=== PATIENT | male | born 1950 | race Caucasian/White ===

== ENCOUNTER 2017-08-13 10:12 | Inpatient (IN) | payer MEDICARE, OTHER, SELFPAY ==
[2017-08-13] VITALS (15 sets, daily range): BP systolic 92–117; BP diastolic 50–66; PULSE 24–94; RESP 17–28; TEMP 36.1–36.6; O2SAT 88–97; BMI 36.5; BMI 35.0
--- NOTE | 2017-08-13 10:30 | EKG12_ITS ---
Test Reason : SOB Blood Pressure : / mmHG Vent. Rate : 065 BPM Atrial Rate : 227 BPM P-R Int : 000 ms QRS Dur : 100 ms QT Int : 418 ms P-R-T Axes : 000 013 248 degrees QTc Int : 434 ms Suspect unspecified pacemaker failure Atrial fibrillation with occasional ventricular-paced complexes Low voltage QRS ST & T wave abnormality, consider lateral ischemia Abnormal ECG Confirmed by NICHOLAS TORRES ([id number]), news assignment editor SHERON JOHNSON ([id number]) on 08/17/2017 9:46:00 AM Referred By: LI Confirmed By:NICHOLAS TORRES
--- NOTE | 2017-08-13 10:30 | RAD_ITS ---
STUDY: X-RAY CHEST REASON FOR EXAM: Male, 66 years old. Chest pain. TECHNIQUE: PA and lateral views of the chest. COMPARISON: Comparison is made with prior study dated March 17, 2017. FINDINGS: Increasing right pleural effusion with basilar atelectasis. Stable pleural parenchymal changes at the left lung base. There is moderate cardiac enlargement. A left-sided ICD is seen. Normal mediastinum and lee. Normal visualized pulmonary arteries. There is atherosclerotic calcification of the aortic arch with tortuosity. There are diffuse degenerative changes of the visualized thoracic spine. Normal visualized ribs, clavicles, and shoulders. There is no demonstrated abnormality of the visualized soft tissue structures of the upper abdomen. RAD/Chest PA and Lateral IMPRESSION: Increasing small right pleural effusion with underlying infiltration and/or atelectasis. Stable pleural parenchymal changes at the left lung base. Electronically Signed: Tra Myrick MD at 11:25 EST Tel [phone], Service support ,
[2017-08-13 10:57] LABS: Absolute Lymphocyte Count 0.56 X10^3/ul (0.83-4.51); Absolute Neutrophil Count 4.2 X10^3/uL (2.0-7.7); Basophil# 0.01 X10^3/uL; Basophil% 0.2 % (0-1); Differential Indicated SCAN CRITERIA MET; Eosinophil# 0.04 X10^3/uL; Eosinophils% 0.8 % (0-5); Hematocrit 32.1 % (40-54); Hemoglobin 8.7 g/dl (13.0-16.5); Lymphocyte # 0.56 X10^3/ul (4.0); Lymphocyte % 10.7 % (19-41); Mean Corp Hgb Conc 27.1 g/gl (32-36); Mean Corpuscular Volume 81.1 fL (80-94); Mean Platelet Vol. 9.8 fl (6.2-12.0); Monocyte# 0.46 X10^3/uL; Monocyte% 8.8 % (0-10); Neutrophil # 4.17 X10^3/uL (2.7-7.7); Neutrophil % 79.5 % (47-70); POSITIVE COUNT NO; POSITIVE DIFFERENTIAL YES; POSITIVE MORPHOLOGY NO; Platelet Count 159 K/mm3 (150-450); RBC Distribution Width CV 18.8 % (11.6-14.6); RBC Distribution Width SD 55.7 fl (35.1-43.9); Red Blood Count 3.96 M/mm3 (4.6-6.2); White Blood Count 5.2 K/mm3 (4.4-11.0)
[2017-08-13 11:12] LABS: Anion Gap 4 (5-15); BUN 39 mg/dL (7-18); BUN/Creat Ratio 19.8 RATIO (10-20); Calcium,Total 8.7 mg/dL (8.5-10.1); Chloride 100 mmol/L (98-107); Creatinine, Serum 1.97 mg/dL (0.70-1.30); EST Glomerular Filtration Rate 36 mL/min (>60); Est Glom Filt Rate - Afr Amer 44 mL/min (>60); Estimated Creatinine Clearance 33.55 ml/min; Glucose 107 mg/dL (70-110); Potassium 5.3 mmol/L (3.5-5.1); Sodium Level 140 mmol/L (136-145)
[2017-08-13 11:16] LABS: Hypochromasia 1+
[2017-08-13 11:20] LABS: BNP,B-Type NATRIURETIC PEPTIDE 721.8 pg/mL (0-100)
--- NOTE | 2017-08-13 13:02 | ED.RN ---
DR DEAN OFFICE CONTACTED FOR MEDICATION LIST
[2017-08-13] MEDS: Furosemide 40 MG/4 ML Vial IV (13:25)
[2017-08-13 14:36] LABS: International Normalized Ratio 3.1; Prothrombin Time (Protime)PT. 31.1 SECONDS (11.7-14.9)
--- NOTE | 2017-08-13 14:52 | ED.DCSUM_ITS ---
- ER Visit Summary Date of Service: 08/13/17 Chief Complaint: Shortness of breath History of Present Illness: The patient is a 66 M presenting for evaluation secondary to shortness of breath. Patient has an underlying history of CHF with an ejection fraction of 20% a pacemaker. Patient states over the course last week he has been retaining fluid in his legs abdomen and feels that he is now retaining fluid in his lungs. Denies any chest pain or cough or fever associated with this. Patient states that he also has an underlying history of chronic kidney disease and it is difficult to titrate his Lasix but he currently is on 40 mg twice daily. Review of systems otherwise negative. Physical Examination: Initial blood pressure 93/50, patient is chronically on 4 L nasal cannula and is 92%. Well-nourished male no acute distress. Moist mucous membranes. Neck supple. Heart regular rate and rhythm 3 out of 6 systolic murmur noted at the apex. Rales noted bilaterally with bilateral wheezes but no respiratory distress. Abdomen is somewhat distended but nontender. 2+ peripheral edema bilaterally symmetric with bilateral 1+ radial pulses. Remainder physical otherwise unremarkable. Test Results: Chest x-ray demonstrates CHF with a right-sided pleural effusion. EKG shows A. fib with a rate in the 70s and chronic T-wave inversions laterally that are unchanged from prior. CBC shows chronic anemia 8.7, chemistry shows potassium of 5.3, BUN of 39 trending upwards from a earlier B UN of 37, creatinine of 1.9 mildly trended upward from 1.84. INR 3.1, troponin negative, BNP elevated. Emergency Department Course and Treatment: Patient presented due to concern for worsening CHF. Patient's workup is noted as above and shows new onset of a pleural effusion on the right but no evidence of cardiac strain. Initially the patient was normally oxygenating in the emergency department on his normal nasal cannula oxygen dosage. I had a discussion with Dr. Mcgregor about this who recommended doubling the patient's Lasix dose and potentially scheduling him for an outpatient pleurocentesis. I discussed this with Dr. Saenz who initially planned to do the pleurocentesis, but to the patient's INR was too high for this procedure. Prior to discharge however, the patient became hypoxic with pulse ox is dropping into the 84% range on his baseline O2. This point I believe he requires admission. I discussed this with the hospitalist patient was given Lasix and increased supplemental oxygen and the patient will be admitted. Disposition: Admission Impression: 1. CHF exacerbation 2. Right-sided pleural effusion 3. Chronic kidney disease 4. Hypoxia This note was generated with too.me dictation software. It may contain incorrect words, spelling, and punctuation that were not noted in review of the chart prior to signing ED Disposition - Plan for ED Patient: Disposition: Home or Assisted Living Chief Complaint: Shortness of Breath Diagnosis: CHF (congestive heart failure)
--- NOTE | 2017-08-13 15:43 | NURSING ---
PT WALKED WITH PORTABLE PULSE OX ON HOME O2. PT SAT WAS 83% ON 5 LITER ON HOME DEVICE. DR INFORMED AND PLAN OF CARE CHANGED.
--- NOTE | 2017-08-13 15:50 | NURSING ---
DR JUAN JEFFERSON
--- NOTE | 2017-08-13 15:54 | NURSING ---
PCU CHF EXAC WITH PLEURAL EFFUSION JUAN
--- NOTE | 2017-08-13 16:39 | HP.PCM_ITS ---
Problem List (1) Acute on chronic combined severe HF Status: Acute (2) Anasarca Status: Acute (3) Warfarin-induced coagulopathy Status: Acute (4) Acute kidney injury on CKD stage III Status: Acute (5) MCC (current) use of anticoagulants Status: Acute (6) History of stent insertion of renal artery Status: Chronic (7) Anemia Status: Chronic (8) Bilateral atelectasis Status: Chronic (9) Acute on chronic respiratory failure with hypoxia and hypercapnia Status: Acute (10) Respiratory failure with hypoxia and hypercapnia Status: Chronic (11) Acute systolic congestive heart failure Status: Acute (12) Coronary artery disease Status: Chronic (13) Peripheral arterial occlusive disease Status: Chronic (14) Pleural effusion Status: Chronic (15) Acute cor pulmonale Status: Chronic (16) Ischemic cardiomyopathy Status: Chronic Comment: EF 20% on 10/27/16 (17) Chronic anticoagulation Status: Chronic Comment: On warfarin (18) Pulmonary hypertension Status: Chronic (19) Atrial fibrillation Status: Chronic (20) Hyperlipemia Status: Chronic (21) COPD (chronic obstructive pulmonary disease) Status: Chronic Comment: mild. no chronic medications (22) Hypertension Status: Chronic (23) Urine retention Status: Chronic (24) BPH (benign prostatic hypertrophy) Status: Suspected (25) Hypothyroidism Status: Chronic (26) Former smoker, stopped smoking in distant past Status: Chronic Comment: Quit in 1999 (27) AICD (automatic cardioverter/defibrillator) present Status: Chronic (28) Pacemaker Status: Chronic (29) Diverticulosis Status: Chronic (30) Left renal artery stenosis Status: Chronic Comment: Stent done in February (31) History of PTCA Status: Chronic History of Present Illness Date of Admission: 08/13/17 Chief Complaint: Progressive worsening of shortness of breath The patient is a 66 year old M with multiple comorbidities including coronary artery disease status post 3 stent, last stent was about 3 years ago, 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 Patient has generalized anasarca, bilateral lower extremity edema, ascites, pleural effusion, ongoing since February 2017. He was admitted last time in February 2017 with acute on chronic combined respiratory failure due to right more than left pleural effusion and atelectasis for which he had right thoracocentesis and about 800 mL fluid was removed by Dr. Myrick. Patient denies any chest pain/tightness and denies even chest pain on exertion. ER physician talked to Dr. person for thoracocentesis and he postponed it for Wednesday because of high INR. Also discussed with Dr. Mcgregor advised for admission for heart failure. 2D echo in October 2016 shows EF 20% with akinetic apex and severely hypokinetic anterior apex and rest of the wall hypokinetic, LA severely enlarged, RA mildly enlarged, 1-2+ MR, mild papillary muscle dysfunction of mitral valve. Mild TR, RVSP of 55 mmHg. Aortic sclerosis no stenosis. Trivial pericardial effusion. Status post AICD Past Medical History Past Medical History (Chronic Problems): Chronic Problems History of stent insertion of renal artery (Chronic) Anemia (Chronic) Bilateral atelectasis (Chronic) Respiratory failure with hypoxia and hypercapnia (Chronic) Coronary artery disease (Chronic) Peripheral arterial occlusive disease (Chronic) Pleural effusion (Chronic) Acute cor pulmonale (Chronic) Ischemic cardiomyopathy (Chronic) EF 20% on 10/27/16 Chronic anticoagulation (Chronic) On warfarin Pulmonary hypertension (Chronic) Atrial fibrillation (Chronic) Hyperlipemia (Chronic) COPD (chronic obstructive pulmonary disease) (Chronic) mild. no chronic medications Hypertension (Chronic) Urine retention (Chronic) Hypothyroidism (Chronic) Former smoker, stopped smoking in distant past (Chronic) Quit in 1999 AICD (automatic cardioverter/defibrillator) present (Chronic) Pacemaker (Chronic) Diverticulosis (Chronic) Left renal artery stenosis (Chronic) Stent done in February History of PTCA (Chronic) Allergies No Known Allergies Allergy (Verified 03/11/17 15:00) Home Medications: Ambulatory Orders Medication Instructions Recorded Amiodarone HCl 100 mg PO BID 10/31/13 Aspirin [Aspirin, Baby] 81 mg PO DAILY 10/31/13 Ezetimibe [Zetia] 10 mg PO QHS 10/31/13 Fenofibrate Nanocrystallized 145 mg PO QHS 10/31/13 [Fenofibrate] Quinapril HCl [Accupril] 40 mg PO DAILY 10/31/13 Rosuvastatin Calcium [Crestor] 40 mg PO QHS 10/31/13 Albuterol IH (ProAir) [Proair Hfa] 2 puff INHALATION Q4H PRN 06/25/16 Budesonide/Formoterol 160/4.5 2 puff INHALATION BID 06/25/16 [Symbicort 160/4.5 Mcg Inhaler (SP)] Tiotropium [place] [Spiriva 18 MCG] 2 puff INHALATION DAILY 06/25/16 Amlodipine [Norvasc] 10 mg PO DAILY 08/13/17 Carvedilol 25 mg PO BID 08/13/17 Furosemide [Lasix] 40 mg PO BID 08/13/17 Levothyroxine [Synthroid] 112 mcg PO DAILY 08/13/17 Potassium Chloride [K-Dur] 10 meq PO BIDCM 08/13/17 Tamsulosin HCl [Flomax] 0.4 mg PO DAILY@1730 08/13/17 Warfarin [Coumadin] 3 mg PO DAILY 08/13/17 Surgical History: angioplasty - With stent, 3 times, cataract, pacemaker implantation - AICD, - - Aortobifemoral grafting, left renal artery stent Psychiatric History: No pertinent psych hx Smoking Status: Former smoker - *Family History Maternal History Items: Heart Disease Paternal History Items: Heart Disease, Pulmonary Disease - Black lung Review of Systems Constitutional: Reports: Malaise, Weakness, Fatigue. Denies: Chills, Fever, Weight Change HEENT: Denies: Head Aches, Sinus Congestion, Sinus Drainage Cardiovascular: Reports: Edema. Denies: Chest Pain, Palpitations Respiratory: Reports: Cough - Chronic cough of COPD, Shortness of Breath, Shortness of breath at rest, Shortness of breath upon exertion. Denies: Sputum production Gastrointestinal: Reports: - - Ascites. Denies: Abdominal Pain, Nausea, Vomiting Genitourinary: Denies: Dysuria Musculoskeletal: Reports: Joint Pain. Denies: Joint Tenderness Skin: Denies: Rash, Wounds Neurological: Denies: Numbness, Tingling, Focal weakness Psychiatric: Denies: Anxiety, Depression, Homicidal Ideations, Suicidal Ideations Hematologic/ Lymphatic: Denies: Easy Bruising, Easy Bleeding VTE Information - Inpt Only VTE Present on Admission: No VTE Mechan Device Prophylaxis: SCD's, Knee High ABBIE Hose VTE Pharm Prophylaxis ordered?: No Reason prophylaxis not ordered:: Medical Contraindication - Coagulopathy Patient Problems: Active and Suspected Problems Acute on chronic combined severe HF (Acute) Anasarca (Acute) Warfarin-induced coagulopathy (Acute) Acute kidney injury on CKD stage III (Acute) - Physical Exam General: Alert, Oriented x3, Cooperative HEENT: Atraumatic, PERRLA, EOMI, Normocephalic Oral: Dry Mucosa Neck: Supple, No JVD, Negative Carotid Bruits Lungs: Diminished - Diminished more on the right posterior half, Rales, Rhonchi , - - Bilateral pleural effusion, right more than left Cardiovascular: Normal S1, Normal S2, Irregular Rate, Murmur - Systolic murmur present over left lower external border Abdomen: Bowel Sounds Present, Soft, Non Tender, Hypoactive Bowel Sounds, Distended - Ascites present. shifting dullness present., Obese Extremities: Capillary Refill Less than 3 Seconds, Edema - Bilateral lower extremity edema, 3+, - - Midline surgical scar present of previous aortic graft bypass surgery Skin: No rashes, No breakdown Musculoskeletal: No Tenderness to Palpation of Joints or Extremities, Arthritic Changes Neurological: Cranial nerves II-XII grossly intact, Neuro grossly intact Psych/Mental Status: Normal Affect, Appropriate Vital Signs Temp Pulse Resp BP Pulse Ox 97.0 F L 65 17 117/55 L 88 08/13/17 10:13 08/13/17 15:34 08/13/17 15:34 08/13/17 15:34 08/13/17 15:34 Oxygen Flow Rate 3 Oxygen Delivery Method Nasal Cannula Weight: 233 lb 0.458 oz Body Mass Index (BMI) 36.5 Laboratory Tests Past 24 Hrs 08/13/17 08/13/17 08/13/17 10:45 10:45 10:45 WBC 5.2 RBC 3.96 L Hgb 8.7 L Hct 32.1 L MCV 81.1 MCH 22.0 L MCHC 27.1 L RDW 18.8 H RDW Differential 55.7 H Plt Count 159 MPV 9.8 Immature Gran % (Auto) 0.000 Neut % (Auto) 79.5 H Lymph % (Auto) 10.7 L [place] % (Auto) 8.8 Eos % (Auto) 0.8 Baso % (Auto) 0.2 Absolute Neuts (auto) 4.2 Absolute Lymphs (auto) 0.56 L Total Counted Not Reportable Hypochromasia 1+ PT INR Sodium 140 Potassium 5.3 H Chloride 100 Carbon Dioxide 36.0 H Anion Gap 4 L BUN 39 H Creatinine 1.97 H Estim Creat Clear Calc 33.55 Est GFR (MDRD) Af Amer 44 L Est GFR (MDRD) Non-Af 36 L BUN/Creatinine Ratio 19.8 Glucose 107 Calcium 8.7 Troponin I < 0.02 B-Natriuretic Peptide 721.8 H 08/13/17 10:45 WBC RBC Hgb Hct MCV MCH MCHC RDW RDW Differential Plt Count MPV Immature Gran % (Auto) Neut % (Auto) Lymph % (Auto) [place] % (Auto) Eos % (Auto) Baso % (Auto) Absolute Neuts (auto) Absolute Lymphs (auto) Total Counted Hypochromasia PT 31.1 H INR 3.1 Sodium Potassium Chloride Carbon Dioxide Anion Gap BUN Creatinine Estim Creat Clear Calc Est GFR (MDRD) Af Amer Est GFR (MDRD) Non-Af BUN/Creatinine Ratio Glucose Calcium Troponin I B-Natriuretic Peptide Assessment/Plan Active and Suspected Problems Acute on chronic combined severe HF (Acute) Anasarca (Acute) Warfarin-induced coagulopathy (Acute) Acute kidney injury on CKD stage III (Acute) The patient is a 66 year old M with multiple comorbidities including coronary artery disease status post 3 stent, last stent was about 3 years ago, 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 Patient has generalized anasarca, bilateral lower extremity edema, ascites, pleural effusion, ongoing since February 2017. He was admitted last time in February 2017 with acute on chronic combined respiratory failure due to right more than left pleural effusion and atelectasis for which he had right thoracocentesis and about 800 mL fluid was removed by Dr. Myrick. Patient denies any chest pain/tightness and denies even chest pain on exertion. ER physician talked to Dr. Myrick for thoracocentesis and he postponed it for Wednesday because of high INR. Also discussed with Dr. Mcgregor advised for admission for heart failure. 2D echo in October 2016 shows EF 20% with akinetic apex and severely hypokinetic anterior apex and rest of the wall hypokinetic, LA severely enlarged, RA mildly enlarged, 1-2+ MR, mild papillary muscle dysfunction of mitral valve. Mild TR, RVSP of 55 mmHg. Aortic sclerosis no stenosis. Trivial pericardial effusion. Status post AICD 1. 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 On IV furosemide drip, 10 mg/h. Patient blood pressure is on the lower side 93/50, 116/61. Agee catheter insertion. On aspirin, beta-maximiliano, low-dose Isordil 5 mg 3 times daily and nystatin. Cardiology consult to Dr. Mcgregor. Cycle cardiac enzymes. Twelve-lead EKG ordered. Patient had recent echo as mentioned above. 2. Acute on chronic respiratory failure due to multiple comorbidities but predominantly acute on chronic heart failure associated with bilateral pleural effusion, right more than left and bilateral atelectasis: On oxygen through nasal cannula to keep pulse ox about 90%. If needed can put on BiPAP for respiratory support. Patient baseline is 3 L/min and was on 4 L in the ER. 3. Respiratory conditions: COPD, bilateral pleural effusion, right more than left and bilateral atelectasis: Dr. Scott postponed right-sided thoracocentesis for Wednesday because of INR, coagulopathy. 4. Acute kidney injury on CKD stage III: Creatinine is 1.97, BUN 39 with estimated creatinine clearance 33 mL/min. His baseline creatinine is around 1.25 with estimated creatinine clearance 50 mL/min. will consult nephrology to further manage Lasix drip, kidney function as I suspect that his creatinine would further increase on Lasix drip. Hypokalemia due to AKA on CKD stage III. 6. Coronary artery status post 3 stents: On medical management for now. Rest as mentioned above. 7. Chronic atrial fibrillation on Coumadin: Rate is controlled. INR is held because of coagulopathy, INR 3.1. 8. Anasarca: Patient has ascites, bilateral pleural effusion and bilateral lower extremity due to severe heart failure. 9.. Multiple comorbidities includes hypertension, severe pulmonary hypertension , peripheral arterial occlusive disease status post aortic bypass graft, dyslipidemia, BPH with urinary retention, possible bladder outlet obstruction left renal artery stenosis status post stenting February 2008, morbid obesity: This multiple comorbidities complicates the present care. PT and OT ordered. Home medication reconciliation done. More than 45 minutes spent in history, physical, examination review of previous medical record and discussion of plan of management with the patient CODE STATUS: Advanced directive including DNR CC, intubation and artificial life support discussed with the patient. Patient does not want intubation, life support or chest compressions so DNR CC arrest. He said he has living will with his daughter. I advised to bring the living will to the hospital so that can be scanned in our record. About 16 minutes time spent in discussion with advanced directive. Laboratory Results 08/13/17 10:45: WBC 5.2, RBC 3.96 L, Hgb 8.7 L, Hct 32.1 L, MCV 81.1, MCH 22.0 L , MCHC 27.1 L, RDW 18.8 H, RDW Differential 55.7 H, Plt Count 159, MPV 9.8, Immature Gran % (Auto) 0.000, Neut % (Auto) 79.5 H, Lymph % (Auto) 10.7 L, [place] % (Auto) 8.8, Eos % (Auto) 0.8, Baso % (Auto) 0.2, Absolute Neuts (auto) 4.2, Absolute Lymphs (auto) 0.56 L, Total Counted Not Reportable, Hypochromasia 1+ 08/13/17 10:45: Sodium 140, Potassium 5.3 H, Chloride 100, Carbon Dioxide 36.0 H , Anion Gap 4 L, BUN 39 H, Creatinine 1.97 H, Estim Creat Clear Calc 33.55, Est GFR (MDRD) Af Amer 44 L, Est GFR (MDRD) Non-Af 36 L, BUN/Creatinine Ratio 19.8, Glucose 107, Calcium 8.7, Troponin I < 0.02 08/13/17 10:45: B-Natriuretic Peptide 721.8 H 08/13/17 10:45: PT 31.1 H, INR 3.1 Clinical Impression(s) from Imaging Studies Chest X-Ray 08/13/17 10:30 IMPRESSION: Increasing small right pleural effusion with underlying infiltration and/or atelectasis. Stable pleural parenchymal changes at the left lung base. Electronically Signed: Tra Myrick MD at 11:25 EST Tel [phone], Service support , Code Visit Inpatient E&M: 08647 Init Hosp L3 Procedures: 17907 Advncd Care Plan 30 Min
--- NOTE | 2017-08-13 18:35 | EKG12_ITS ---
Test Reason : CHF Blood Pressure : / mmHG Vent. Rate : 067 BPM Atrial Rate : 070 BPM P-R Int : 000 ms QRS Dur : 104 ms QT Int : 412 ms P-R-T Axes : 000 025 233 degrees QTc Int : 435 ms Normal sinus rhythm Low voltage QRS ST & T wave abnormality, consider lateral ischemia Abnormal ECG When compared with ECG of 13-AUG-2017 10:40, MANUAL COMPARISON REQUIRED, DATA IS UNCONFIRMED Confirmed by NICHOLAS TORRES ([id number]), editorial specialist SHERON JOHNSON ([id number]) on 08/19/2017 11:56:18 AM Referred By: JUAN Confirmed By:NICHOLAS TORRES
[2017-08-13] MEDS: Tamsulosin HCl 0.4 MG Capsule PO (19:05)
[2017-08-13] MEDS: Sodium Polystyrene Sulfonate 15 GM/60 ML UDC PO (20:15)
[2017-08-13 20:34] LABS: Magnesium 2.3 mg/dL (1.6-2.6)
[2017-08-13] MEDS: Carvedilol 25 MG Tablet PO (23:02)
[2017-08-13] MEDS: Isosorbide DN 10 MG Tablet 5 MG PO (23:02)
[2017-08-13] MEDS: Atorvastatin Calcium 80 MG Tablet PO (23:02)
[2017-08-14] VITALS (22 sets, daily range): BP systolic 77–124; BP diastolic 40–64; PULSE 61–104; RESP 15–22; TEMP 36.4–37; O2SAT 89–96
[2017-08-14] MEDS: Levothyroxine 112 MCG Tablet PO (05:40)
[2017-08-14] MEDS: Isosorbide DN 10 MG Tablet 5 MG PO ×2 (05:40→22:08)
--- NOTE | 2017-08-14 05:55 | RAD_ITS ---
STUDY: X-RAY CHEST REASON FOR EXAM: Male, 66 years old. CHF. TECHNIQUE: PA and lateral views of the chest. COMPARISON: 13 August 2017 FINDINGS: Left pacer place with leads overlying the right atrium and right ventricle. Chronic basilar interstitial markings and atelectatic changes are present mildly increased. There is overall stable appearance of the right layering pleural effusion. There is no demonstrated pleural abnormality. There is moderate cardiac enlargement. Normal mediastinum and lee. Normal visualized pulmonary arteries. There is atherosclerotic calcification of the aortic arch with tortuosity. Normal visualized thoracic spine. Normal visualized ribs, clavicles, and shoulders. There is no demonstrated abnormality of the visualized soft tissue structures of the upper abdomen. RAD/Chest PA and Lateral IMPRESSION: Mild increased basilar atelectasis with unchanged appearance of right lower lung effusion. Electronically Signed: Kar Heredia DO at 7:22 EST , Service support ,
[2017-08-14 06:29] LABS: Absolute Lymphocyte Count 0.59 X10^3/ul (0.83-4.51); Absolute Neutrophil Count 3.2 X10^3/uL (2.0-7.7); Eosinophil# 0.04 X10^3/uL; Eosinophils% 0.9 % (0-5); Hematocrit 30.3 % (40-54); Hemoglobin 8.1 g/dl (13.0-16.5); Lymphocyte # 0.59 X10^3/ul (4.0); Lymphocyte % 13.6 % (19-41); Mean Corp Hgb Conc 26.7 g/gl (32-36); Mean Corpuscular Hgb 21.8 pg (27.0-32.0); Mean Corpuscular Volume 81.7 fL (80-94); Mean Platelet Vol. 10.6 fl (6.2-12.0); Monocyte# 0.47 X10^3/uL; Monocyte% 10.9 % (0-10); Neutrophil # 3.23 X10^3/uL (2.7-7.7); Neutrophil % 74.6 % (47-70); Platelet Count 161 K/mm3 (150-450); RBC Distribution Width CV 18.9 % (11.6-14.6); RBC Distribution Width SD 56.2 fl (35.1-43.9); Red Blood Count 3.71 M/mm3 (4.6-6.2); White Blood Count 4.3 K/mm3 (4.4-11.0)
[2017-08-14 06:34] LABS: Prothrombin Time (Protime)PT. 29.8 SECONDS (11.7-14.9)
[2017-08-14 06:47] LABS: Differential Indicated SCAN CRITERIA MET; POSITIVE COUNT NO; POSITIVE DIFFERENTIAL YES; POSITIVE MORPHOLOGY NO
[2017-08-14 07:05] LABS: Cholesterol 127 mg/dL (200); High Density Lipoprotein 29 mg/dL; Magnesium 2.2 mg/dL (1.6-2.6); Thyroid Stim Hormone (TSH) 4.09 uIU/mL (0.358-3.74); Triglycerides 97 mg/dL; Very Low Density Lipoprotein 19 mg/dL (5-40)
[2017-08-14] MEDS: Ipratropium/Albuterol Sulfate 3 ML AMPUL.NEB INHALATION ×3 (07:23→18:57)
[2017-08-14] MEDS: Budesonide Respules 0.5 MG/2 ML AMPUL.NEB. INHALATION ×2 (07:23→18:57)
[2017-08-14 08:32] LABS: Differential Comment SCANNED
--- NOTE | 2017-08-14 08:37 | CPS ---
PT DECREASED TO 4 LPM. SAT 94% ON 4LPM
[2017-08-14] MEDS: Aspirin E.C. 81 MG Tablet PO (08:40)
--- NOTE | 2017-08-14 09:00 | PCM.CONS.C ---
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 no chronic medications (15) AICD (automatic cardioverter/defibrillator) present Status: Chronic (16) History of PTCA Status: Chronic Reason for Consult Date of Consultation: 08/14/17 Reason for Consultation: Acute on chronic CHF, coronary disease, ischemic cardiomyopathy, chronic renal insufficiency, atrial fibrillation, status post AICD. History of Present Illness: The patient is a 66 year old M, fairly well known to me, nondiabetic with ischemic cardiomyopathy, coronary disease status post AICD placement in the past, asymptomatic chronic persistent atrial fibrillation on Coumadin therapy. Patient originally presented to [facility] after angina type chest pain. Patient underwent left heart catheterization via the left groin which demonstrated a critical in-stent restenosis of his left circumflex. This was done via the left groin due to severe peripheral vascular disease on the right side status post aortofemoral bypass. Patient underwent successful cutting balloon angioplasty and drug-eluting stenting of his left circumflex with a 3.0X 20 Promus stent in December 2013, postdilated 3.5 mm. At that time he was in sinus rhythm so his Coumadin was discontinued and placed on aspirin and Plavix. In August 2014 patient was found on routine pacemaker evaluation to have a asymptomatic burst of atrial fibrillation and his Coumadin was restarted and his Plavix discontinued. Patient has been admitted several times for congestive heart failure symptoms, most recently in October 2016 however I was not reconsulted at that time. At that time his echocardiogram showed an EF of 20%, mild to moderate TR, an RVSP of 55 mmHg. In addition the patient has a history of right pleural effusions requiring thoracenteses in the past. Patient was doing well up into the last several days when he had progressively worsening lower extremity edema, shortness of breath, orthopnea, PND. He denies any chest pain symptoms. He sought medical attention at [facility] ER where he was found to have recurrence of his pleural effusion, normal sinus rhythm, and mild desaturation. He was admitted for medical therapy and placed on IV Lasix drip at 10 mg/h. Currently the patient is sitting in a chair, he has admitted to dietary indiscretion with salty soups, although he does state he takes his medications. He no longer smokes. He is unable to obtain a thoracentesis given his INR of 3.0. [] Past Medical History Allergies/Adverse Reactions: Allergies No Known Allergies Allergy (Verified 03/11/17 15:00) Home Medications: Ambulatory Orders Medication Instructions Recorded Amiodarone HCl 100 mg PO BID 10/31/13 Aspirin [Aspirin, Baby] 81 mg PO DAILY 10/31/13 Ezetimibe [Zetia] 10 mg PO QHS 10/31/13 Fenofibrate Nanocrystallized 145 mg PO QHS 10/31/13 [Fenofibrate] Quinapril HCl [Accupril] 40 mg PO DAILY 10/31/13 Rosuvastatin Calcium [Crestor] 40 mg PO QHS 10/31/13 Albuterol IH (ProAir) [Proair Hfa] 2 puff INHALATION Q4H PRN 06/25/16 Budesonide/Formoterol 160/4.5 2 puff INHALATION BID 06/25/16 [Symbicort 160/4.5 Mcg Inhaler (SP)] Tiotropium [place] [Spiriva 18 MCG] 2 puff INHALATION DAILY 06/25/16 Amlodipine [Norvasc] 10 mg PO DAILY 08/13/17 Carvedilol 25 mg PO BID 08/13/17 Furosemide [Lasix] 40 mg PO BID 08/13/17 Levothyroxine [Synthroid] 112 mcg PO DAILY 08/13/17 Potassium Chloride [K-Dur] 10 meq PO BIDCM 08/13/17 Tamsulosin HCl [Flomax] 0.4 mg PO DAILY@1730 08/13/17 Warfarin [Coumadin] 3 mg PO DAILY 08/13/17 Past Medical History (Chronic Problems): Chronic Problems History of stent insertion of renal artery (Chronic) Anemia (Chronic) Bilateral atelectasis (Chronic) Respiratory failure with hypoxia and hypercapnia (Chronic) Coronary artery disease (Chronic) Peripheral arterial occlusive disease (Chronic) Pleural effusion (Chronic) Acute cor pulmonale (Chronic) Ischemic cardiomyopathy (Chronic) EF 20% on 10/27/16 Chronic anticoagulation (Chronic) On warfarin Pulmonary hypertension (Chronic) Atrial fibrillation (Chronic) Hyperlipemia (Chronic) COPD (chronic obstructive pulmonary disease) (Chronic) mild. no chronic medications Hypertension (Chronic) Urine retention (Chronic) Hypothyroidism (Chronic) Former smoker, stopped smoking in distant past (Chronic) Quit in 1999 AICD (automatic cardioverter/defibrillator) present (Chronic) Pacemaker (Chronic) Diverticulosis (Chronic) Left renal artery stenosis (Chronic) Stent done in February History of PTCA (Chronic) Surgical History: angioplasty - With stent, 3 times, cataract, pacemaker implantation - AICD, - - Aortobifemoral grafting, left renal artery stent Psychiatric History: No pertinent psych hx - *Family History Maternal History Items: Heart Disease Paternal History Items: Heart Disease, Pulmonary Disease - Black lung Smoking Status: Former smoker Review of Systems - Review of Systems General: Denies: Fever, Night Sweats, Fatigue Cardiovascular: Reports: Shortness of Breath at Rest, Shortness of Breath with Exertion, Orthopnea, PND, Peripheral Edema. Denies: Chest Discomfort, Shortness of Breath, Palpitations, Lightheadedness, Dizziness, Near Syncope, Syncope Respiratory: Denies: Cough, Sputum Production, Hemoptysis Gastrointestinal: Denies: Hematemesis, Hematochezia, Melena Genitourinary: Denies: Dysuria, Hematuria Skin: Denies: Rash Subjectve: Patient sitting in chair, no acute distress. Objective: Vital Signs Temp Pulse Resp BP Pulse Ox 97.6 F L 70 18 102/48 L 91 08/14/17 08:00 08/14/17 08:00 08/14/17 08:00 08/14/17 08:00 08/14/17 08:00 Oxygen Flow Rate 4 Oxygen Delivery Method Nasal Cannula Weight: 223 lb 12.307 oz Body Mass Index (BMI) 35.0 Intake and Output for Last 24 Hours 08/12/17 08/13/17 08/14/17 23:59 23:59 23:59 Intake Total 120 / 120 368.8 / 368.8 Output Total 1350 / 1350 Balance 120 / 120 -981.2 / -981.2 General: Awake, Alert, Oriented x 3 HEENT: PERRL, EOMI, Sclera Non Icteric Neck: Supple, Good ROM, No Lymph Node Enlargement Lungs: Diminished Right Base Cardiovascular: Regular Rhythm, Normal S1, Normal S2, No Murmurs, No Rubs, No Gallops Vascular: No Carotid Bruits, Normal Femoral Pulses, Normal Radial Pulses, Normal Dorsalis Pedal Pulse, Normal Posterior Tibial Pulses Abdomen: Bowel Sounds Present, Soft, Non Tender, No HSM, No Organomegaly Extremities: No Cyanosis, No Clubbing, No edema Neurological: No Focal Motor or Sensory Deficit 08/13/17 19:23: Magnesium 2.3 08/13/17 19:23: Troponin I < 0.02 08/13/17 23:03: Troponin I < 0.02 08/14/17 05:20: WBC 4.3 L, RBC 3.71 L, Hgb 8.1 L, Hct 30.3 L, MCV 81.7, MCH 21.8 L, MCHC 26.7 L, RDW 18.9 H, RDW Differential 56.2 H, Plt Count 161, MPV 10.6, Immature Gran % (Auto) 0.000, Neut % (Auto) 74.6 H, Lymph % (Auto) 13.6 L, [place] % (Auto) 10.9 H, Eos % (Auto) 0.9, Baso % (Auto) 0.0, Absolute Neuts (auto) 3.2, Total Counted Not Reportable 08/14/17 05:20: PT 29.8 H, INR 3.0 08/14/17 05:20: Magnesium 2.2, Triglycerides 97, Cholesterol 127, LDL Cholesterol 79, VLDL Cholesterol 19, HDL Cholesterol 29 L 08/14/17 05:20: Troponin I < 0.02 Rhythm: EKG: Normal sinus rhythm with lateral T-wave inversion. ECHO: Dated 10/27/16 showed an EF of 20%, with inferior lateral akinesis, RVSP of 55 mmHg, Stress Test: Cardiac Cath: PCI: CT Surgery: Holter monitor: EPS: PPM: CXR: Chest CT Scan: Assessment/Plan 1. Ischemic cardiomyopathy: The patient has evidence of biventricular failure and pulmonary hypertension as well as recurrence of his right pleural effusion. His chest x-ray does not appear to show a an excessive amount of right sided pleural effusion, and my hope would be is that we could diurese him to the point where that would improve without undergoing a repeat thoracentesis. I am in agreement with IV diuretic therapy with Lasix at 10 mg/h, but I would have a low threshold to increase this or switch to Bumex drip in order to conserve IV fluid infusion. In addition I recommend metolazone 2.5 mg today, followed by 2 times per week on Tuesdays and in order to facilitate optimal fluid balance. His creatinine clearance is not so bad that he requires dialysis at this time, however that may be ultimately his N game if we are unable to control his fluid status. In addition I recommend a 1500 cc fluid restriction, ABBIE hose while he is in house to facilitate venous return. I do not believe the patient requires repeat catheterization, stress test or echocardiogram at this time. 2. Atrial fibrillation: The patient is remaining in normal sinus rhythm with the assistance of Coreg, Accupril, and amiodarone. I recommend discontinuation of his Norvasc as this may be contributing to his leg edema. Should he have increased blood pressure, we can add Imdur 30 mg p.o. daily and titrate up from there. 3. Hyperlipidemia: Continue Crestor and Zetia therapy. Recommend repeat lipid profile. 4. Thank you very much for the opportunity to put dissipate in the cardiac care of your patient. Consultation time took place between 830 and 9 AM. Code Visit Inpatient E&M: 22504 Init Hosp L2
--- NOTE | 2017-08-14 09:12 | CON.PCM_ITS ---
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 no chronic medications (15) AICD (automatic cardioverter/defibrillator) present Status: Chronic (16) History of PTCA Status: Chronic Reason for Consult Date of Consultation: 08/14/17 Reason for Consultation: Acute on chronic CHF, coronary disease, ischemic cardiomyopathy, chronic renal insufficiency, atrial fibrillation, status post AICD. History of Present Illness: The patient is a 66 year old M, fairly well known to me, nondiabetic with ischemic cardiomyopathy, coronary disease status post AICD placement in the past , asymptomatic chronic persistent atrial fibrillation on Coumadin therapy. Patient originally presented to [facility] after angina type chest pain. Patient underwent left heart catheterization via the left groin which demonstrated a critical in-stent restenosis of his left circumflex. This was done via the left groin due to severe peripheral vascular disease on the right side status post aortofemoral bypass. Patient underwent successful cutting balloon angioplasty and drug-eluting stenting of his left circumflex with a 3.0X 20 Promus stent in December 2013, postdilated 3.5 mm. At that time he was in sinus rhythm so his Coumadin was discontinued and placed on aspirin and Plavix. In August 2014 patient was found on routine pacemaker evaluation to have a asymptomatic burst of atrial fibrillation and his Coumadin was restarted and his Plavix discontinued. Patient has been admitted several times for congestive heart failure symptoms, most recently in October 2016 however I was not reconsulted at that time. At that time his echocardiogram showed an EF of 20%, mild to moderate TR, an RVSP of 55 mmHg. In addition the patient has a history of right pleural effusions requiring thoracenteses in the past. Patient was doing well up into the last several days when he had progressively worsening lower extremity edema, shortness of breath, orthopnea, PND. He denies any chest pain symptoms. He sought medical attention at [facility] ER where he was found to have recurrence of his pleural effusion, normal sinus rhythm, and mild desaturation. He was admitted for medical therapy and placed on IV Lasix drip at 10 mg/h. Currently the patient is sitting in a chair, he has admitted to dietary indiscretion with salty soups, although he does state he takes his medications. He no longer smokes. He is unable to obtain a thoracentesis given his INR of 3.0. [] Past Medical History Allergies/Adverse Reactions: Allergies No Known Allergies Allergy (Verified 03/11/17 15:00) Home Medications: Ambulatory Orders Medication Instructions Recorded Amiodarone HCl 100 mg PO BID 10/31/13 Aspirin [Aspirin, Baby] 81 mg PO DAILY 10/31/13 Ezetimibe [Zetia] 10 mg PO QHS 10/31/13 Fenofibrate Nanocrystallized 145 mg PO QHS 10/31/13 [Fenofibrate] Quinapril HCl [Accupril] 40 mg PO DAILY 10/31/13 Rosuvastatin Calcium [Crestor] 40 mg PO QHS 10/31/13 Albuterol IH (ProAir) [Proair Hfa] 2 puff INHALATION Q4H PRN 06/25/16 Budesonide/Formoterol 160/4.5 2 puff INHALATION BID 06/25/16 [Symbicort 160/4.5 Mcg Inhaler (SP)] Tiotropium [place] [Spiriva 18 MCG] 2 puff INHALATION DAILY 06/25/16 Amlodipine [Norvasc] 10 mg PO DAILY 08/13/17 Carvedilol 25 mg PO BID 08/13/17 Furosemide [Lasix] 40 mg PO BID 08/13/17 Levothyroxine [Synthroid] 112 mcg PO DAILY 08/13/17 Potassium Chloride [K-Dur] 10 meq PO BIDCM 08/13/17 Tamsulosin HCl [Flomax] 0.4 mg PO DAILY@1730 08/13/17 Warfarin [Coumadin] 3 mg PO DAILY 08/13/17 Past Medical History (Chronic Problems): Chronic Problems History of stent insertion of renal artery (Chronic) Anemia (Chronic) Bilateral atelectasis (Chronic) Respiratory failure with hypoxia and hypercapnia (Chronic) Coronary artery disease (Chronic) Peripheral arterial occlusive disease (Chronic) Pleural effusion (Chronic) Acute cor pulmonale (Chronic) Ischemic cardiomyopathy (Chronic) EF 20% on 10/27/16 Chronic anticoagulation (Chronic) On warfarin Pulmonary hypertension (Chronic) Atrial fibrillation (Chronic) Hyperlipemia (Chronic) COPD (chronic obstructive pulmonary disease) (Chronic) mild. no chronic medications Hypertension (Chronic) Urine retention (Chronic) Hypothyroidism (Chronic) Former smoker, stopped smoking in distant past (Chronic) Quit in 1999 AICD (automatic cardioverter/defibrillator) present (Chronic) Pacemaker (Chronic) Diverticulosis (Chronic) Left renal artery stenosis (Chronic) Stent done in February History of PTCA (Chronic) Surgical History: angioplasty - With stent, 3 times, cataract, pacemaker implantation - AICD, - - Aortobifemoral grafting, left renal artery stent Psychiatric History: No pertinent psych hx - *Family History Maternal History Items: Heart Disease Paternal History Items: Heart Disease, Pulmonary Disease - Black lung Smoking Status: Former smoker Review of Systems - Review of Systems General: Denies: Fever, Night Sweats, Fatigue Cardiovascular: Reports: Shortness of Breath at Rest, Shortness of Breath with Exertion, Orthopnea, PND, Peripheral Edema. Denies: Chest Discomfort, Shortness of Breath, Palpitations, Lightheadedness, Dizziness, Near Syncope, Syncope Respiratory: Denies: Cough, Sputum Production, Hemoptysis Gastrointestinal: Denies: Hematemesis, Hematochezia, Melena Genitourinary: Denies: Dysuria, Hematuria Skin: Denies: Rash Subjectve: Patient sitting in chair, no acute distress. Objective: Vital Signs Temp Pulse Resp BP Pulse Ox 97.6 F L 70 18 102/48 L 91 08/14/17 08:00 08/14/17 08:00 08/14/17 08:00 08/14/17 08:00 08/14/17 08:00 Oxygen Flow Rate 4 Oxygen Delivery Method Nasal Cannula Weight: 223 lb 12.307 oz Body Mass Index (BMI) 35.0 Intake and Output for Last 24 Hours 08/12/17 08/13/17 08/14/17 23:59 23:59 23:59 Intake Total 120 / 120 368.8 / 368.8 Output Total 1350 / 1350 Balance 120 / 120 -981.2 / -981.2 General: Awake, Alert, Oriented x 3 HEENT: PERRL, EOMI, Sclera Non Icteric Neck: Supple, Good ROM, No Lymph Node Enlargement Lungs: Diminished Right Base Cardiovascular: Regular Rhythm, Normal S1, Normal S2, No Murmurs, No Rubs, No Gallops Vascular: No Carotid Bruits, Normal Femoral Pulses, Normal Radial Pulses, Normal Dorsalis Pedal Pulse, Normal Posterior Tibial Pulses Abdomen: Bowel Sounds Present, Soft, Non Tender, No HSM, No Organomegaly Extremities: No Cyanosis, No Clubbing, No edema Neurological: No Focal Motor or Sensory Deficit 08/13/17 19:23: Magnesium 2.3 08/13/17 19:23: Troponin I < 0.02 08/13/17 23:03: Troponin I < 0.02 08/14/17 05:20: WBC 4.3 L, RBC 3.71 L, Hgb 8.1 L, Hct 30.3 L, MCV 81.7, MCH 21.8 L, MCHC 26.7 L, RDW 18.9 H, RDW Differential 56.2 H, Plt Count 161, MPV 10.6, Immature Gran % (Auto) 0.000, Neut % (Auto) 74.6 H, Lymph % (Auto) 13.6 L , [place] % (Auto) 10.9 H, Eos % (Auto) 0.9, Baso % (Auto) 0.0, Absolute Neuts ( auto) 3.2, Total Counted Not Reportable 08/14/17 05:20: PT 29.8 H, INR 3.0 08/14/17 05:20: Magnesium 2.2, Triglycerides 97, Cholesterol 127, LDL Cholesterol 79, VLDL Cholesterol 19, HDL Cholesterol 29 L 08/14/17 05:20: Troponin I < 0.02 Rhythm: EKG: Normal sinus rhythm with lateral T-wave inversion. ECHO: Dated 10/27/16 showed an EF of 20%, with inferior lateral akinesis, RVSP of 55 mmHg, Stress Test: Cardiac Cath: PCI: CT Surgery: Holter monitor: EPS: PPM: CXR: Chest CT Scan: Assessment/Plan 1. Ischemic cardiomyopathy: The patient has evidence of biventricular failure and pulmonary hypertension as well as recurrence of his right pleural effusion. His chest x-ray does not appear to show a an excessive amount of right sided pleural effusion, and my hope would be is that we could diurese him to the point where that would improve without undergoing a repeat thoracentesis. I am in agreement with IV diuretic therapy with Lasix at 10 mg/h, but I would have a low threshold to increase this or switch to Bumex drip in order to conserve IV fluid infusion. In addition I recommend metolazone 2.5 mg today, followed by 2 times per week on Tuesdays and in order to facilitate optimal fluid balance. His creatinine clearance is not so bad that he requires dialysis at this time, however that may be ultimately his N game if we are unable to control his fluid status. In addition I recommend a 1500 cc fluid restriction, ABBIE hose while he is in house to facilitate venous return. I do not believe the patient requires repeat catheterization, stress test or echocardiogram at this time. 2. Atrial fibrillation: The patient is remaining in normal sinus rhythm with the assistance of Coreg, Accupril, and amiodarone. I recommend discontinuation of his Norvasc as this may be contributing to his leg edema. Should he have increased blood pressure, we can add Imdur 30 mg p.o. daily and titrate up from there. 3. Hyperlipidemia: Continue Crestor and Zetia therapy. Recommend repeat lipid profile. 4. Thank you very much for the opportunity to put dissipate in the cardiac care of your patient. Consultation time took place between 830 and 9 AM. Code Visit Inpatient E&M: [id number] Init Hosp L2
[2017-08-14] MEDS: Carvedilol 25 MG Tablet PO ×2 (10:51→22:09)
[2017-08-14] MEDS: Ezetimibe 10 MG Tablet PO (10:51)
[2017-08-14] MEDS: Metolazone 2.5 MG Tablet PO (10:51)
[2017-08-14] MEDS: Amiodarone 200 MG Tablet PO (10:51)
--- NOTE | 2017-08-14 16:09 | PN_ITS ---
Patient Problems: Active and Suspected Problems Acute on chronic combined severe HF (Acute) Anasarca (Acute) Warfarin-induced coagulopathy (Acute) Acute kidney injury on CKD stage III (Acute) CHF (congestive heart failure) (Acute) Subjective: Patient seen and examined today, I discussed his care with cardiology, cardiology added additional medications and does not feel presently that he is diuresing. In discussing this with cardiology, cardiology recommended placing the patient on a Bumex drip and I have changed from his Lasix drip to a Bumex drip. Patient's chest x-ray today to me looks a little worse with some CHF appearing infiltrates noted on the left. His right pleural effusion to me does not look any worse. Patient does not complain of any increased shortness of breath to this examiner today. - Physical Exam General: Alert, Oriented x3, Cooperative, No apparent distress, Well developed HEENT: Atraumatic, PERRLA, EOMI, Normocephalic Oral: Moist Mucosa Neck: Supple, No JVD, Negative Carotid Bruits, No Nuchal Rigidity, Trachea Midline, Thyroid Normal Size and Texture Lungs: Normal air movement, No rhonchi, No wheeze, Diminished - On the right, Rales - Inspiratory rales on the right Cardiovascular: Regular rate, Regular Rhythm, Normal S1, Normal S2, No murmurs Abdomen: Bowel Sounds Present, Soft, Non Tender, Non-Distended, No hernias noted Extremities: No clubbing, No cyanosis Skin: No rashes, No breakdown Musculoskeletal: No Tenderness to Palpation of Joints or Extremities Neurological: Cranial nerves II-XII grossly intact, Neuro grossly intact, Sensory exam intact to light touch and pain, Coordination normal Psych/Mental Status: Normal Affect, Appropriate, Alert and oriented to time, place, person, mood and affect Vital Signs Temp Pulse Resp BP Pulse Ox 98.0 F 67 18 104/53 L 92 08/14/17 15:12 08/14/17 15:39 08/14/17 15:12 08/14/17 15:12 08/14/17 15:12 Oxygen Flow Rate 4 Oxygen Delivery Method Nasal Cannula Weight: 99.6 kg Body Mass Index (BMI) 35.0 Intake and Output for Last 24 Hours 08/12/17 08/13/17 08/14/17 23:59 23:59 23:59 Intake Total 120 / 120 606.1 / 606.1 Output Total 2250 / 2250 Balance 120 / 120 -1643.9 / -1643.9 Laboratory Tests Past 24 Hrs 08/13/17 08/13/17 08/13/17 19:23 19:23 23:03 WBC RBC Hgb Hct MCV MCH MCHC RDW RDW Differential Plt Count MPV Immature Gran % (Auto) Neut % (Auto) Lymph % (Auto) [place] % (Auto) Eos % (Auto) Baso % (Auto) Absolute Neuts (auto) Absolute Lymphs (auto) Total Counted Differential Comment PT INR Magnesium 2.3 Troponin I < 0.02 < 0.02 Triglycerides Cholesterol LDL Cholesterol VLDL Cholesterol HDL Cholesterol TSH 08/14/17 08/14/17 08/14/17 05:20 05:20 05:20 WBC 4.3 L RBC 3.71 L Hgb 8.1 L Hct 30.3 L MCV 81.7 MCH 21.8 L MCHC 26.7 L RDW 18.9 H RDW Differential 56.2 H Plt Count 161 MPV 10.6 Immature Gran % (Auto) 0.000 Neut % (Auto) 74.6 H Lymph % (Auto) 13.6 L [place] % (Auto) 10.9 H Eos % (Auto) 0.9 Baso % (Auto) 0.0 Absolute Neuts (auto) 3.2 Absolute Lymphs (auto) 0.59 L Total Counted Not Reportable Differential Comment SCANNED PT 29.8 H INR 3.0 Magnesium 2.2 Troponin I Triglycerides 97 Cholesterol 127 LDL Cholesterol 79 VLDL Cholesterol 19 HDL Cholesterol 29 L TSH 4.09 H 08/14/17 05:20 WBC RBC Hgb Hct MCV MCH MCHC RDW RDW Differential Plt Count MPV Immature Gran % (Auto) Neut % (Auto) Lymph % (Auto) [place] % (Auto) Eos % (Auto) Baso % (Auto) Absolute Neuts (auto) Absolute Lymphs (auto) Total Counted Differential Comment PT INR Magnesium Troponin I < 0.02 Triglycerides Cholesterol LDL Cholesterol VLDL Cholesterol HDL Cholesterol TSH Assessment/Plan Active and Suspected Problems Acute on chronic combined severe HF (Acute) Anasarca (Acute) Warfarin-induced coagulopathy (Acute) Acute kidney injury on CKD stage III (Acute) CHF (congestive heart failure) (Acute) #1 acute on chronic systolic congestive heart failure-patient was changed to an IV Bumex drip today, additional medications per cardiology #2 ischemic cardiomyopathy with impaired EF of 20%-cardiology does not feel patient needs a repeat echo at this time #3 pulmonary hypertension #4 right pleural effusion secondary to congestive heart failure-patient will undergo thoracentesis during this admission #5 underlying atrial fibrillation with paced rhythm #6 COPD
--- NOTE | 2017-08-14 17:08 | CASEMGMT ---
Face to Face with patient for initial transition planning/care coordination assessment. RN DIANE introduced self and role at [facility], pt voices understanding and consents to assessment at this time. Pt sitting up in chair in no distress at this time. Pt A/O x4 at this time and answers all questions appropriately at this time. Care providers, pharmacy, and demographics verified. See attached link. Pt voices no further concerns/needs at this time. Advised pt to ask for CM if any further questions/concerns/needs arise, voices understanding. CM to follow for any further discharge planning/needs. PLAN: [place] [facility]
[2017-08-14] MEDS: Bumetanide 25 MG in CONTAINER,EMPTY 1 BAG CONT INF (17:30)
[2017-08-14] MEDS: Tamsulosin HCl 0.4 MG Capsule PO (17:31)
[2017-08-14] MEDS: Fenofibrate 145 MG Tablet PO (22:08)
[2017-08-14] MEDS: Atorvastatin Calcium 80 MG Tablet PO (22:08)
[2017-08-15] VITALS (23 sets, daily range): BP systolic 90–112; BP diastolic 45–56; PULSE 63–81; RESP 15–20; TEMP 36.6–36.8; O2SAT 93–98
[2017-08-15 06:01] LABS: Absolute Lymphocyte Count 0.65 X10^3/ul (0.83-4.51); Absolute Neutrophil Count 3.7 X10^3/uL (2.0-7.7); Basophil# 0.01 X10^3/uL; Basophil% 0.2 % (0-1); Eosinophil# 0.05 X10^3/uL; Hematocrit 30.6 % (40-54); Hemoglobin 8.3 g/dl (13.0-16.5); Lymphocyte # 0.65 X10^3/ul (4.0); Lymphocyte % 13.1 % (19-41); Mean Corp Hgb Conc 27.1 g/gl (32-36); Mean Corpuscular Hgb 21.8 pg (27.0-32.0); Mean Corpuscular Volume 80.3 fL (80-94); Mean Platelet Vol. 11.1 fl (6.2-12.0); Monocyte# 0.51 X10^3/uL; Monocyte% 10.3 % (0-10); Neutrophil # 3.72 X10^3/uL (2.7-7.7); Platelet Count 163 K/mm3 (150-450); RBC Distribution Width SD 53.5 fl (35.1-43.9); Red Blood Count 3.81 M/mm3 (4.6-6.2)
[2017-08-15 06:06] LABS: POSITIVE COUNT NO; POSITIVE DIFFERENTIAL NO; POSITIVE MORPHOLOGY NO
[2017-08-15 06:08] LABS: International Normalized Ratio 2.4; Prothrombin Time (Protime)PT. 25.1 SECONDS (11.7-14.9)
[2017-08-15] MEDS: Levothyroxine 112 MCG Tablet PO (06:44)
[2017-08-15 07:43] LABS: Anion Gap 6 (5-15); BUN 31 mg/dL (7-18); BUN/Creat Ratio 19.3 RATIO (10-20); Calcium,Total 8.8 mg/dL (8.5-10.1); Chloride 96 mmol/L (98-107); Creatinine, Serum 1.61 mg/dL (0.70-1.30); EST Glomerular Filtration Rate 46 mL/min (>60); Est Glom Filt Rate - Afr Amer 55 mL/min (>60); Estimated Creatinine Clearance 41.06 ml/min; Glucose 84 mg/dL (70-110); Potassium 3.2 mmol/L (3.5-5.1); Sodium Level 143 mmol/L (136-145)
[2017-08-15] MEDS: Budesonide Respules 0.5 MG/2 ML AMPUL.NEB. INHALATION ×2 (07:46→19:26)
[2017-08-15] MEDS: Ipratropium/Albuterol Sulfate 3 ML AMPUL.NEB INHALATION ×3 (07:46→19:26)
[2017-08-15] MEDS: Ezetimibe 10 MG Tablet PO (08:29)
[2017-08-15] MEDS: Aspirin E.C. 81 MG Tablet PO (08:29)
[2017-08-15] MEDS: Amiodarone 200 MG Tablet PO (10:03)
--- NOTE | 2017-08-15 10:28 | PCM.PN.CARD ---
Subjectve: Patient continues to improve and feels much better since admission. Lower extremity edema markedly improved and almost back to normal. Patient's breathing has improved as well since switching to IV Bumex drip and metolazone augmentation. Patient is approximately net -5.3 L since admission. Objective: Vital Signs Temp Pulse Resp BP Pulse Ox 98.1 F 77 18 97/45 L 95 08/15/17 10:00 08/15/17 10:00 08/15/17 10:00 08/15/17 10:00 08/15/17 10:00 Oxygen Flow Rate 4 Oxygen Delivery Method Nasal Cannula Weight: 208 lb 1.862 oz Body Mass Index (BMI) 35.0 Intake and Output for Last 24 Hours 08/13/17 08/14/17 08/15/17 23:59 23:59 23:59 Intake Total 120 / 120 1067.1 / 1067.1 Output Total 4930 / 4930 1550 / 1550 Balance 120 / 120 -3862.9 / -3862.9 -1536 / -1536 General: Awake, Alert, Oriented x 3 HEENT: PERRL, EOMI, Sclera Non Icteric Neck: Supple, Good ROM, No Lymph Node Enlargement Lungs: Diminished Right Base Cardiovascular: Irregular Rhythm, Normal S1, Normal S2, No Murmurs, No Rubs, No Gallops Vascular: No Carotid Bruits, Normal Femoral Pulses, Normal Radial Pulses, Normal Dorsalis Pedal Pulse, Normal Posterior Tibial Pulses Abdomen: Bowel Sounds Present, Soft, Non Tender, No HSM, No Organomegaly Extremities: No Cyanosis, No Clubbing, No edema Neurological: No Focal Motor or Sensory Deficit 08/15/17 05:16: WBC 5.0, RBC 3.81 L, Hgb 8.3 L, Hct 30.6 L, MCV 80.3, MCH 21.8 L, MCHC 27.1 L, RDW 19.0 H, RDW Differential 53.5 H, Plt Count 163, MPV 11.1, Immature Gran % (Auto) 0.400, Neut % (Auto) 75.0 H, Lymph % (Auto) 13.1 L, [place] % (Auto) 10.3 H, Eos % (Auto) 1.0, Baso % (Auto) 0.2, Absolute Neuts (auto) 3.7, Total Counted Not Reportable 08/15/17 05:16: PT 25.1 H, INR 2.4 08/15/17 05:16: Sodium 143, Potassium 3.2 L, Chloride 96 L, Carbon Dioxide 41.0 H, Anion Gap 6, BUN 31 H, Creatinine 1.61 H, Est GFR (MDRD) Af Amer 55 L, Est GFR (MDRD) Non-Af 46 L, BUN/Creatinine Ratio 19.3, Glucose 84, Calcium 8.8 Rhythm: Atrial fibrillation with rapid ventricular response EKG: ECHO: Stress Test: Cardiac Cath: PCI: CT Surgery: Holter monitor: EPS: PPM: CXR: Chest CT Scan: Assessment/Plan 1. Ischemic cardiomyopathy: The patient has evidence of biventricular failure and pulmonary hypertension as well as recurrence of his right pleural effusion. His chest x-ray does not appear to show a an excessive amount of right sided pleural effusion, and my hope would be is that we could diurese him to the point where that would improve without undergoing a repeat thoracentesis. We switched the patient to IV Bumex yesterday 0.5 mg/h, and he has diuresed quite well with an actually an improvement of his creatinine since admission. We have discontinued his amlodipine due to his lower extremity edema, and would recommend not restarting it. Would recommend IV Bumex drip for 1 more day until his lower extremity edema has completely resolved and his egophony on his right side has resolved as well. At that time we will change him to Lasix 40 mg p.o. twice daily, and add metolazone 2.5 mg q. Wednesday and to assist with diuresis throughout the week. In addition I recommend a 1500 cc fluid restriction, ABBIE hose while he is in house to facilitate venous return. I do not believe the patient requires repeat catheterization, stress test or echocardiogram at this time. 2. Atrial fibrillation: The patient is remaining in normal sinus rhythm with the assistance of Coreg, Accupril, and amiodarone. This morning however he had evidence of atrial fibrillation with RVR, and recommend replacing his potassium 20 mill equivalent ?1 followed by 10 mEq p.o. daily. I recommend discontinuation of his Norvasc as this may be contributing to his leg edema. Should he have increased blood pressure, we can add Imdur 30 mg p.o. daily and titrate up from there. 3. Hyperlipidemia: Continue Crestor and Zetia therapy. Recommend repeat lipid profile. 4. Thank you very much for the opportunity to put dissipate in the cardiac care of your patient. Code Visit Inpatient E&M: 16863 Subs Hosp L2
--- NOTE | 2017-08-15 10:34 | PN.CARD_ITS ---
Subjectve: Patient continues to improve and feels much better since admission. Lower extremity edema markedly improved and almost back to normal. Patient's breathing has improved as well since switching to IV Bumex drip and metolazone augmentation. Patient is approximately net -5.3 L since admission. Objective: Vital Signs Temp Pulse Resp BP Pulse Ox 98.1 F 77 18 97/45 L 95 08/15/17 10:00 08/15/17 10:00 08/15/17 10:00 08/15/17 10:00 08/15/17 10:00 Oxygen Flow Rate 4 Oxygen Delivery Method Nasal Cannula Weight: 208 lb 1.862 oz Body Mass Index (BMI) 35.0 Intake and Output for Last 24 Hours 08/13/17 08/14/17 08/15/17 23:59 23:59 23:59 Intake Total 120 / 120 1067.1 / 1067.1 Output Total 4930 / 4930 1550 / 1550 Balance 120 / 120 -3862.9 / -3862.9 -1536 / -1536 General: Awake, Alert, Oriented x 3 HEENT: PERRL, EOMI, Sclera Non Icteric Neck: Supple, Good ROM, No Lymph Node Enlargement Lungs: Diminished Right Base Cardiovascular: Irregular Rhythm, Normal S1, Normal S2, No Murmurs, No Rubs, No Gallops Vascular: No Carotid Bruits, Normal Femoral Pulses, Normal Radial Pulses, Normal Dorsalis Pedal Pulse, Normal Posterior Tibial Pulses Abdomen: Bowel Sounds Present, Soft, Non Tender, No HSM, No Organomegaly Extremities: No Cyanosis, No Clubbing, No edema Neurological: No Focal Motor or Sensory Deficit 08/15/17 05:16: WBC 5.0, RBC 3.81 L, Hgb 8.3 L, Hct 30.6 L, MCV 80.3, MCH 21.8 L , MCHC 27.1 L, RDW 19.0 H, RDW Differential 53.5 H, Plt Count 163, MPV 11.1, Immature Gran % (Auto) 0.400, Neut % (Auto) 75.0 H, Lymph % (Auto) 13.1 L, [place] % (Auto) 10.3 H, Eos % (Auto) 1.0, Baso % (Auto) 0.2, Absolute Neuts (auto) 3.7 , Total Counted Not Reportable 08/15/17 05:16: PT 25.1 H, INR 2.4 08/15/17 05:16: Sodium 143, Potassium 3.2 L, Chloride 96 L, Carbon Dioxide 41.0 H, Anion Gap 6, BUN 31 H, Creatinine 1.61 H, Est GFR (MDRD) Af Amer 55 L, Est GFR (MDRD) Non-Af 46 L, BUN/Creatinine Ratio 19.3, Glucose 84, Calcium 8.8 Rhythm: Atrial fibrillation with rapid ventricular response EKG: ECHO: Stress Test: Cardiac Cath: PCI: CT Surgery: Holter monitor: EPS: PPM: CXR: Chest CT Scan: Assessment/Plan 1. Ischemic cardiomyopathy: The patient has evidence of biventricular failure and pulmonary hypertension as well as recurrence of his right pleural effusion. His chest x-ray does not appear to show a an excessive amount of right sided pleural effusion, and my hope would be is that we could diurese him to the point where that would improve without undergoing a repeat thoracentesis. We switched the patient to IV Bumex yesterday 0.5 mg/h, and he has diuresed quite well with an actually an improvement of his creatinine since admission. We have discontinued his amlodipine due to his lower extremity edema, and would recommend not restarting it. Would recommend IV Bumex drip for 1 more day until his lower extremity edema has completely resolved and his egophony on his right side has resolved as well. At that time we will change him to Lasix 40 mg p.o. twice daily, and add metolazone 2.5 mg q. Wednesday and to assist with diuresis throughout the week. In addition I recommend a 1500 cc fluid restriction, ABBIE hose while he is in house to facilitate venous return. I do not believe the patient requires repeat catheterization, stress test or echocardiogram at this time. 2. Atrial fibrillation: The patient is remaining in normal sinus rhythm with the assistance of Coreg, Accupril, and amiodarone. This morning however he had evidence of atrial fibrillation with RVR, and recommend replacing his potassium 20 mill equivalent ?1 followed by 10 mEq p.o. daily. I recommend discontinuation of his Norvasc as this may be contributing to his leg edema. Should he have increased blood pressure, we can add Imdur 30 mg p.o. daily and titrate up from there. 3. Hyperlipidemia: Continue Crestor and Zetia therapy. Recommend repeat lipid profile. 4. Thank you very much for the opportunity to put dissipate in the cardiac care of your patient. Code Visit Inpatient E&M: 70719 Subs Hosp L2
[2017-08-15] MEDS: Carvedilol 25 MG Tablet PO ×2 (10:54→22:10)
[2017-08-15] MEDS: Tamsulosin HCl 0.4 MG Capsule PO (17:00)
--- NOTE | 2017-08-15 18:23 | PCM.PROGNOTE ---
Patient Problems: Active and Suspected Problems Acute on chronic combined severe HF (Acute) Anasarca (Acute) Warfarin-induced coagulopathy (Acute) Acute kidney injury on CKD stage III (Acute) CHF (congestive heart failure) (Acute) Subjective: Patient seen and examined today, he states he is feeling better and breathing better. I reviewed cardiology's progress notes, they feel that he is improving with current therapy. Patient's potassium was slightly low this morning, he was given potassium by cardiology, I will repeat his BMP in the morning and obtain a chest x-ray. Remains on Bumex drip with time - Physical Exam General: Alert, Oriented x3, Cooperative, No apparent distress, Well developed, Well nourished HEENT: Atraumatic, PERRLA, EOMI, Normocephalic Oral: Moist Mucosa Neck: Supple, No JVD, No Nuchal Rigidity, Trachea Midline, Thyroid Normal Size and Texture Lungs: Normal air movement, Diminished, Rales - Faint inspiratory rales are noted over the right lower lung field Cardiovascular: Regular rate, Regular Rhythm, Normal S1, Normal S2, No murmurs, - - he has paced rhythm Abdomen: Bowel Sounds Present, Soft, Non Tender, Non-Distended, No hernias noted Extremities: No clubbing, No cyanosis, Capillary Refill Less than 3 Seconds Skin: No rashes, No breakdown Musculoskeletal: No Tenderness to Palpation of Joints or Extremities Neurological: Cranial nerves II-XII grossly intact, Neuro grossly intact, Sensory exam intact to light touch and pain, Coordination normal Psych/Mental Status: Normal Affect, Appropriate, Alert and oriented to time, place, person, mood and affect Vital Signs Temp Pulse Resp BP Pulse Ox 98.2 F 75 18 103/55 L 95 08/15/17 15:30 08/15/17 15:30 08/15/17 15:30 08/15/17 15:30 08/15/17 15:30 Oxygen Flow Rate 4 Oxygen Delivery Method Nasal Cannula Weight: 94.4 kg Body Mass Index (BMI) 35.0 Intake and Output for Last 24 Hours 08/13/17 08/14/17 08/15/17 23:59 23:59 23:59 Intake Total 120 / 120 1067.1 / 1067.1 756 / 756 Output Total 4930 / 4930 4275 / 4275 Balance 120 / 120 -3862.9 / -3862.9 -3519 / -3519 Laboratory Tests Past 24 Hrs 08/15/17 08/15/17 08/15/17 05:16 05:16 05:16 WBC 5.0 RBC 3.81 L Hgb 8.3 L Hct 30.6 L MCV 80.3 MCH 21.8 L MCHC 27.1 L RDW 19.0 H RDW Differential 53.5 H Plt Count 163 MPV 11.1 Immature Gran % (Auto) 0.400 Neut % (Auto) 75.0 H Lymph % (Auto) 13.1 L [place] % (Auto) 10.3 H Eos % (Auto) 1.0 Baso % (Auto) 0.2 Absolute Neuts (auto) 3.7 Absolute Lymphs (auto) 0.65 L Total Counted Not Reportable PT 25.1 H INR 2.4 Sodium 143 Potassium 3.2 L Chloride 96 L Carbon Dioxide 41.0 H Anion Gap 6 BUN 31 H Creatinine 1.61 H Estim Creat Clear Calc 41.06 Est GFR (MDRD) Af Amer 55 L Est GFR (MDRD) Non-Af 46 L BUN/Creatinine Ratio 19.3 Glucose 84 Calcium 8.8 Assessment/Plan Active and Suspected Problems Acute on chronic combined severe HF (Acute) Anasarca (Acute) Warfarin-induced coagulopathy (Acute) Acute kidney injury on CKD stage III (Acute) CHF (congestive heart failure) (Acute) #1 acute on chronic systolic congestive heart failure-patient remains on a Bumex drip at this time, cardiology is adjusting his medications #2 ischemic cardiomyopathy with impaired EF of 20%-cardiology does not feel patient needs a repeat echo at this time #3 pulmonary hypertension #4 right pleural effusion secondary to congestive heart failure-it is unlikely patient will need to undergo thoracentesis, I will repeat his chest x-ray tomorrow morning #5 underlying atrial fibrillation with paced rhythm #6 COPD Code Visit Inpatient E&M: 26274 Subs Hosp L2
[2017-08-15] MEDS: Fenofibrate 145 MG Tablet PO (22:10)
[2017-08-15] MEDS: Atorvastatin Calcium 80 MG Tablet PO (22:10)
[2017-08-16] VITALS (14 sets, daily range): BP systolic 89–106; BP diastolic 47–58; PULSE 66–80; RESP 16–18; TEMP 36.7–37; O2SAT 95–100
[2017-08-16] MEDS: Levothyroxine 112 MCG Tablet PO (05:16)
[2017-08-16 06:15] LABS: International Normalized Ratio 1.9
[2017-08-16 06:54] LABS: Anion Gap 5 (5-15); BUN 29 mg/dL (7-18); BUN/Creat Ratio 18.2 RATIO (10-20); Calcium,Total 8.8 mg/dL (8.5-10.1); Chloride 89 mmol/L (98-107); Creatinine, Serum 1.59 mg/dL (0.70-1.30); EST Glomerular Filtration Rate 46 mL/min (>60); Est Glom Filt Rate - Afr Amer 56 mL/min (>60); Estimated Creatinine Clearance 41.57 ml/min; Glucose 86 mg/dL (70-110); Potassium 3.1 mmol/L (3.5-5.1); Sodium Level 139 mmol/L (136-145)
[2017-08-16] MEDS: Ipratropium/Albuterol Sulfate 3 ML AMPUL.NEB INHALATION ×2 (07:14→13:05)
[2017-08-16] MEDS: Budesonide Respules 0.5 MG/2 ML AMPUL.NEB. INHALATION (07:14)
--- NOTE | 2017-08-16 08:00 | RAD_ITS ---
STUDY: X-RAY CHEST REASON FOR EXAM: Male, 66 years old. CHF. TECHNIQUE: PA and lateral views of the chest. COMPARISON: Comparison is made with prior examination dated August 14, 2017. FINDINGS: EKG electrodes are seen. Small right pleural effusion with underlying infiltration and/or atelectasis. This is unchanged. Persistent blunting of the left costophrenic angle with increased markings at the left lung base. Mild degree of vascular congestion. This is unchanged as well. A left-sided dual chamber pacemaker is seen. Normal mediastinum and lee. Normal visualized pulmonary arteries. There is atherosclerotic calcification of the aortic arch with tortuosity. There are diffuse degenerative changes of the visualized thoracic spine. Normal visualized ribs, clavicles, and shoulders. There is no demonstrated abnormality of the visualized soft tissue structures of the upper abdomen. RAD/Chest PA and Lateral IMPRESSION: Stable pleural parenchymal changes at the lung bases worse on the right side. Electronically Signed: Tra Myrick MD at 9:35 EST Tel [phone], Service support ,
[2017-08-16] MEDS: Amiodarone 200 MG Tablet PO (08:38)
[2017-08-16] MEDS: Aspirin E.C. 81 MG Tablet PO (08:38)
[2017-08-16] MEDS: Carvedilol 25 MG Tablet PO ×2 (08:39→22:01)
[2017-08-16] MEDS: Ezetimibe 10 MG Tablet PO (08:39)
--- NOTE | 2017-08-16 10:48 | PCM.PN.HOSP ---
Patient Problems: Active and Suspected Problems Acute on chronic combined severe HF (Acute) Anasarca (Acute) Warfarin-induced coagulopathy (Acute) Acute kidney injury on CKD stage III (Acute) CHF (congestive heart failure) (Acute) Acute kidney injury superimposed on chronic kidney disease (Acute) Subjective: Patient is a 66-year-old male with multiple comorbidities including CAD status post 3 previous stent placement ischemic cardiomyopathy with EF of 20% admitted with progressive shortness of breath spent of acute congestive heart failure made admitted to a monitored nursing floor for Objective: GENERAL: cooperative HEENT: Clear conjunctiva, NECK; supple, normal thyroid, CHEST: Diminished to auscultation bilaterally, HEART: Regular S1 S2, no audible murmurs ABDOMEN: soft, non-tender, normoactive bowel sounds, RECTAL: deferred EXTREMITIES: Trace edema, no cyanosis. [employer]IST: Awake, no lateralizing signs. SKIN: No Rash , Vitals/I&O's: Vital Signs Temp Pulse Resp BP Pulse Ox 98.6 F 72 18 101/58 L 95 08/16/17 08:32 08/16/17 08:38 08/16/17 08:32 08/16/17 08:32 08/16/17 08:32 Oxygen Flow Rate 4 Oxygen Delivery Method Nasal Cannula Weight: 94.4 kg Body Mass Index (BMI) 35.0 Intake and Output for Last 24 Hours 08/14/17 08/15/17 08/16/17 23:59 23:59 23:59 Intake Total 1067.1 / 1067.1 756 / 756 412.0 / 412.0 Output Total 4930 / 4930 4275 / 4275 3750 / 3750 Balance -3862.9 / -3862.9 -3519 / -3519 -3338.0 / -3338.0 Laboratory Results 08/16/17 05:20: PT 21.0 H, INR 1.9 08/16/17 05:20: Sodium 139, Potassium 3.1 L, Chloride 89 L, Carbon Dioxide 45.0 H, Anion Gap 5, BUN 29 H, Creatinine 1.59 H, Estim Creat Clear Calc 41.57, Est GFR (MDRD) Af Amer 56 L, Est GFR (MDRD) Non-Af 46 L, BUN/Creatinine Ratio 18.2, Glucose 86, Calcium 8.8 Current Medications Acetaminophen (Tylenol) 650 mg PO Q6H PRN PRN PRN Reason: Mild Pain (scale 0-3)/T>100.7 Al Hydroxide/Mg Hydroxide (Mylanta Ii) 30 ml PO Q6H PRN PRN PRN Reason: Gastric Burning Albuterol/Ipratropium (Duoneb) 3 ml INHALATION Q4H PRN PRN Reason: Shortness of breath Albuterol/Ipratropium (Duoneb) 3 ml INHALATION Q6HWA.RT [facility] Last Admin: 08/16/17 07:14 Dose: 3 ml Amiodarone HCl (Cordarone) 200 mg PO DAILY [facility] Last Admin: 08/16/17 08:38 Dose: 200 mg Aspirin (Ecotrin) 81 mg PO DAILY@0800 [facility] Last Admin: 08/16/17 08:38 Dose: 81 mg Atorvastatin Calcium (Lipitor) 80 mg PO QHS [facility] Last Admin: 08/15/17 22:10 Dose: 80 mg Bisacodyl (Dulcolax) 10 mg RECTAL DAILY PRN PRN PRN Reason: Constipation Budesonide (Pulmicort Aerosol) 0.5 mg INHALATION Q12H.RT [facility] Last Admin: 08/16/17 07:14 Dose: 0.5 mg Carvedilol (Coreg) 25 mg PO BID [facility] Last Admin: 08/16/17 08:39 Dose: 25 mg Docusate Sodium (Colace) 200 mg PO BID PRN PRN PRN Reason: Constipation Ezetimibe (Zetia) 10 mg PO DAILY [facility] Last Admin: 08/16/17 08:39 Dose: 10 mg Fenofibrate (Tricor) 145 mg PO QHS [facility] Last Admin: 08/15/17 22:10 Dose: 145 mg Hydralazine HCl (Apresoline) 25 mg PO BID [facility] Last Admin: 08/16/17 08:38 Dose: 25 mg Bumetanide 25 mg/ (Miscellaneous Information) 100 mls @ 2 mls/hr CONT INF .Q50H [facility] PRN Reason: 0.5 MG/HR Last Admin: 08/14/17 17:30 Dose: 2 mls/hr Isosorbide Dinitrate (Isordil) 5 mg PO TID [facility] Last Admin: 08/16/17 08:36 Dose: Not Given Levothyroxine Sodium (Synthroid) 112 mcg PO DAILY@0600 [facility] Last Admin: 08/16/17 05:16 Dose: 112 mcg Morphine Sulfate (Morphine) 1 - 2 mg IV Q4H PRN PRN PRN Reason: SEVERE PAIN (6-10/10) Ondansetron HCl (Zofran) 4 mg IV Q6H PRN PRN PRN Reason: Nausea Oxycodone HCl (Oxyir) 5 mg PO Q4H PRN PRN PRN Reason: Moderate Pain (pain scale 4-5) Potassium Chloride (K-Dur) 10 meq PO DAILYCM [facility] Last Admin: 08/16/17 08:38 Dose: 10 meq Sodium Chloride () 5 - 30 ml IV UD PRN PRN Reason: SALINE FLUSH Tamsulosin HCl (Flomax) 0.4 mg PO DAILY@1730 [facility] Last Admin: 08/15/17 17:00 Dose: 0.4 mg Warfarin Sodium (Coumadin (Pbkc)) 3 mg PO DAILY@1700 [facility] Last Admin: 08/15/17 17:00 Dose: 3 mg Zolpidem Tartrate (Ambien (Generic)) 5 mg PO QHS PRN PRN PRN Reason: INSOMNIA Assessment/Plan Active and Suspected Problems Acute on chronic combined severe HF (Acute) Anasarca (Acute) Warfarin-induced coagulopathy (Acute) Acute kidney injury on CKD stage III (Acute) CHF (congestive heart failure) (Acute) Acute kidney injury superimposed on chronic kidney disease (Acute) Patient is a 66-year-old male with multiple comorbidities including CAD status post 3 previous stent placement ischemic cardiomyopathy with EF of 20% admitted with progressive shortness of breath spent of acute congestive heart failure made admitted to a monitored nursing floor for 1. Acute on chronic systolic congestive heart failure with an ejection fraction of 20%: Patient was managed with Bumex drip improve with therapy switched to Zaroxolyn on 08/16/17. Patient did improve with therapy 2. Ischemic cardiomyopathy status post AICD placement 3. CAD with previous stent placement 4. Chronic A. fib rate controlled on systemic anticoagulation with Coumadin 5. Chronic hypoxic respiratory failure secondary to patient's CHF as well as COPD on baseline home O2 6. Acute hypoxic respiratory failure superimposed on chronic respiratory failure secondary to #1 7. Severe pulmonary hypertension 8. Morbid obesity with BMI of 32.6 9. Hypertension-blood pressure controlled, home medications continued with dose adjustment as needed 10. Right-sided pleural effusion attributed to patient underlying congestive heart failure 11. Peripheral arterial occlusive disease status post aortic bypass graft, 12. Dyslipidemia-patient is on statin therapy, continued at home dose 13. BPH 14. Renal artery stenosis status post stenting in February 2008 15. Hypokalemia secondary to patient being on diuretics corrected per protocol 16. Chronic kidney disease stage III 17. DVT prophylaxis patient is on Coumadin Code Visit Inpatient E&M: 40817 Subs Hosp L2
--- NOTE | 2017-08-16 11:03 | PCM.CONS.R ---
Problem List (1) Acute kidney injury superimposed on chronic kidney disease Status: Acute Consultation - Renal PCP/ Referring MD: Requesting physician: [] Primary care physician: Tyrone Bhakta - History of Present Illness History of Present Illness: The patient is a 66 year old M past medical history of severe systolic heart failure section fraction 20%, status post AICD placement, coronary artery disease, ischemic cardiomyopathy, chronic kidney disease stage III with a creatinine fluctuated between 1.2-2 . Patient presented with progressive shortness of breath and leg edema for 2 weeks . Patient was admitted for CHF decompensation . Patient also was found to have a Chiari with a creatinine increased to 1.9 from the last creatinine 1.2 . Renal team was consulted for managing acute kidney injury . Patient was kept on IV diuretics continuous infusion . Now he is on Bumex 0.5 mg/min with excellent urine output . Patient said his leg edema is much better . He remains on 4 L/min nasal cannula . He said his breathing is better. No NSAID use. No IV contrast exposure. No urinary obstructive symptoms. No skin rash. No hematuria. No UTI-like symptoms Review of systems : 12 systems review is negative except some shortness of breath [] - Allergies Allergies: Allergies No Known Allergies Allergy (Verified 03/11/17 15:00) - Current Medications Current Medications: Current Medications Acetaminophen (Tylenol) 650 mg PO Q6H PRN PRN PRN Reason: Mild Pain (scale 0-3)/T>100.7 Al Hydroxide/Mg Hydroxide (Mylanta Ii) 30 ml PO Q6H PRN PRN PRN Reason: Gastric Burning Albuterol/Ipratropium (Duoneb) 3 ml INHALATION Q4H PRN PRN Reason: Shortness of breath Albuterol/Ipratropium (Duoneb) 3 ml INHALATION Q6HWA.RT [facility] Last Admin: 08/16/17 07:14 Dose: 3 ml Amiodarone HCl (Cordarone) 200 mg PO DAILY [facility] Last Admin: 08/16/17 08:38 Dose: 200 mg Aspirin (Ecotrin) 81 mg PO DAILY@0800 [facility] Last Admin: 08/16/17 08:38 Dose: 81 mg Atorvastatin Calcium (Lipitor) 80 mg PO QHS [facility] Last Admin: 08/15/17 22:10 Dose: 80 mg Bisacodyl (Dulcolax) 10 mg RECTAL DAILY PRN PRN PRN Reason: Constipation Budesonide (Pulmicort Aerosol) 0.5 mg INHALATION Q12H.RT [facility] Last Admin: 08/16/17 07:14 Dose: 0.5 mg Carvedilol (Coreg) 25 mg PO BID [facility] Last Admin: 08/16/17 08:39 Dose: 25 mg Docusate Sodium (Colace) 200 mg PO BID PRN PRN PRN Reason: Constipation Ezetimibe (Zetia) 10 mg PO DAILY [facility] Last Admin: 08/16/17 08:39 Dose: 10 mg Fenofibrate (Tricor) 145 mg PO QHS [facility] Last Admin: 08/15/17 22:10 Dose: 145 mg Hydralazine HCl (Apresoline) 25 mg PO BID [facility] Last Admin: 08/16/17 08:38 Dose: 25 mg Isosorbide Dinitrate (Isordil) 5 mg PO TID [facility] Last Admin: 08/16/17 08:36 Dose: Not Given Levothyroxine Sodium (Synthroid) 112 mcg PO DAILY@0600 [facility] Last Admin: 08/16/17 05:16 Dose: 112 mcg Metolazone (Zaroxolyn) 2.5 mg PO UD [facility] Morphine Sulfate (Morphine) 1 - 2 mg IV Q4H PRN PRN PRN Reason: SEVERE PAIN (6-10/10) Ondansetron HCl (Zofran) 4 mg IV Q6H PRN PRN PRN Reason: Nausea Oxycodone HCl (Oxyir) 5 mg PO Q4H PRN PRN PRN Reason: Moderate Pain (pain scale 4-5) [facility] Sodium Chloride () 5 - 30 ml IV UD PRN PRN Reason: SALINE FLUSH Tamsulosin HCl (Flomax) 0.4 mg PO DAILY@1730 [facility] Last Admin: 08/15/17 17:00 Dose: 0.4 mg Warfarin Sodium (Coumadin (Pbkc)) 3 mg PO DAILY@1700 [facility] Last Admin: 08/15/17 17:00 Dose: 3 mg Zolpidem Tartrate (Ambien (Generic)) 5 mg PO QHS PRN PRN PRN Reason: INSOMNIA - Past Medical History Past Medical History (Chronic Problems): Chronic Problems History of stent insertion of renal artery (Chronic) Anemia (Chronic) Bilateral atelectasis (Chronic) Respiratory failure with hypoxia and hypercapnia (Chronic) Coronary artery disease (Chronic) Peripheral arterial occlusive disease (Chronic) Pleural effusion (Chronic) Acute cor pulmonale (Chronic) Ischemic cardiomyopathy (Chronic) EF 20% on 10/27/16 Chronic anticoagulation (Chronic) On warfarin Pulmonary hypertension (Chronic) Atrial fibrillation (Chronic) Hyperlipemia (Chronic) COPD (chronic obstructive pulmonary disease) (Chronic) mild. no chronic medications Hypertension (Chronic) Urine retention (Chronic) Hypothyroidism (Chronic) Former smoker, stopped smoking in distant past (Chronic) Quit in 1999 AICD (automatic cardioverter/defibrillator) present (Chronic) Pacemaker (Chronic) Diverticulosis (Chronic) Left renal artery stenosis (Chronic) Stent done in February History of PTCA (Chronic) - Past Surgical History Surgical History: angioplasty - With stent, 3 times, cataract, pacemaker implantation - AICD, - - Aortobifemoral grafting, left renal artery stent - Social History Smoking Status: Former smoker - Family History Maternal History Items: Heart Disease Paternal History Items: Heart Disease, Pulmonary Disease - Black lung Patient Problems: Active and Suspected Problems Acute on chronic combined severe HF (Acute) Anasarca (Acute) Warfarin-induced coagulopathy (Acute) Acute kidney injury on CKD stage III (Acute) CHF (congestive heart failure) (Acute) Acute kidney injury superimposed on chronic kidney disease (Acute) - Physical Exam General: Alert, Oriented x3 HEENT: Atraumatic Oral: Moist Mucosa Neck: Supple, No JVD Lungs: - - Equal air entry. Bilateral crackles over both lungs bases Cardiovascular: Regular rate, Regular Rhythm, Normal S1, Normal S2 Abdomen: Bowel Sounds Present, Soft, Non Tender Extremities: No clubbing, No cyanosis, - - Trace edema of lower extent Skin: No rashes Lymphatic: No Cervical, Supraclavicular, or Inguinal Adenopathy Neurological: Cranial nerves II-XII grossly intact, Neuro grossly intact Psych/Mental Status: Normal Affect Vital Signs Temp Pulse Resp BP Pulse Ox 98.6 F 72 18 101/58 L 95 08/16/17 08:32 08/16/17 08:38 08/16/17 08:32 08/16/17 08:32 08/16/17 08:32 Oxygen Flow Rate 4 Oxygen Delivery Method Nasal Cannula Weight: 94.4 kg Body Mass Index (BMI) 35.0 Intake and Output for Last 24 Hours 08/14/17 08/15/17 08/16/17 23:59 23:59 23:59 Intake Total 1067.1 / 1067.1 756 / 756 412.0 / 412.0 Output Total 4930 / 4930 4275 / 4275 3750 / 3750 Balance -3862.9 / -3862.9 -3519 / -3519 -3338.0 / -3338.0 Laboratory Tests Past 24 Hrs 08/16/17 08/16/17 05:20 05:20 PT 21.0 H INR 1.9 Sodium 139 Potassium 3.1 L Chloride 89 L Carbon Dioxide 45.0 H Anion Gap 5 BUN 29 H Creatinine 1.59 H Estim Creat Clear Calc 41.57 Est GFR (MDRD) Af Amer 56 L Est GFR (MDRD) Non-Af 46 L BUN/Creatinine Ratio 18.2 Glucose 86 Calcium 8.8 Assessment/Plan Active and Suspected Problems Acute on chronic combined severe HF (Acute) Anasarca (Acute) Warfarin-induced coagulopathy (Acute) Acute kidney injury on CKD stage III (Acute) CHF (congestive heart failure) (Acute) Acute kidney injury superimposed on chronic kidney disease (Acute) 1-acute kidney injury and chronic kidney disease. Baseline creatinine fluctuated between 1.2-1.9 reflecting the change in the hemodynamic status from poor ejection fraction and diuretics use. ATN now is most probably related to cardiorenal syndrome. Creatinine improved with diuretics. Now creatinine 1.6. Creatinine peaked at 1.9 mg/dL when the patient initially presented to the hospital. I agree with the diuretics continuation. I will decrease the dose of Bumex to 2 mg p.o. 3 times daily along with metolazone. I will give the patient 1 dose of acetazolamide for metabolic alkalosis I will continue to monitor kidney function and electrolytes with diuretics. Avoid NSAIDs for now. Avoid JUANITA inhibitor/ARB/ 2- Hypokalemia. Most probably from diuretics. I will give potassium chloride 40 mEq IV 1 dose today. I will check magnesium level tomorrow 3-metabolic alkalosis. Most probably from volume contraction due to high volume diuresis. I will give 1 dose of acetazolamide 4-systolic heart failure decompensation. Improving with diuretics. Cardiology is following Thank you for the consult. We will continue to follow Chari Downey [phone]
--- NOTE | 2017-08-16 11:12 | CON.PCM_ITS ---
Problem List (1) Acute kidney injury superimposed on chronic kidney disease Status: Acute Consultation - Renal PCP/ Referring MD: Requesting physician: [] Primary care physician: Tyrone Bhakta - History of Present Illness History of Present Illness: The patient is a 66 year old M past medical history of severe systolic heart failure section fraction 20%, status post AICD placement, coronary artery disease, ischemic cardiomyopathy, chronic kidney disease stage III with a creatinine fluctuated between 1.2-2 . Patient presented with progressive shortness of breath and leg edema for 2 weeks . Patient was admitted for CHF decompensation . Patient also was found to have a Chiari with a creatinine increased to 1.9 from the last creatinine 1.2 . Renal team was consulted for managing acute kidney injury . Patient was kept on IV diuretics continuous infusion . Now he is on Bumex 0.5 mg/min with excellent urine output . Patient said his leg edema is much better . He remains on 4 L/min nasal cannula . He said his breathing is better. No NSAID use. No IV contrast exposure. No urinary obstructive symptoms. No skin rash. No hematuria. No UTI-like symptoms Review of systems : 12 systems review is negative except some shortness of breath [] - Allergies Allergies: Allergies No Known Allergies Allergy (Verified 03/11/17 15:00) - Current Medications Current Medications: Current Medications Acetaminophen (Tylenol) 650 mg PO Q6H PRN PRN PRN Reason: Mild Pain (scale 0-3)/T>100.7 Al Hydroxide/Mg Hydroxide (Mylanta Ii) 30 ml PO Q6H PRN PRN PRN Reason: Gastric Burning Albuterol/Ipratropium (Duoneb) 3 ml INHALATION Q4H PRN PRN Reason: Shortness of breath Albuterol/Ipratropium (Duoneb) 3 ml INHALATION Q6HWA.RT [facility] Last Admin: 08/16/17 07:14 Dose: 3 ml Amiodarone HCl (Cordarone) 200 mg PO DAILY [facility] Last Admin: 08/16/17 08:38 Dose: 200 mg Aspirin (Ecotrin) 81 mg PO DAILY@0800 [facility] Last Admin: 08/16/17 08:38 Dose: 81 mg Atorvastatin Calcium (Lipitor) 80 mg PO QHS [facility] Last Admin: 08/15/17 22:10 Dose: 80 mg Bisacodyl (Dulcolax) 10 mg RECTAL DAILY PRN PRN PRN Reason: Constipation Budesonide (Pulmicort Aerosol) 0.5 mg INHALATION Q12H.RT [facility] Last Admin: 08/16/17 07:14 Dose: 0.5 mg Carvedilol (Coreg) 25 mg PO BID [facility] Last Admin: 08/16/17 08:39 Dose: 25 mg Docusate Sodium (Colace) 200 mg PO BID PRN PRN PRN Reason: Constipation Ezetimibe (Zetia) 10 mg PO DAILY [facility] Last Admin: 08/16/17 08:39 Dose: 10 mg Fenofibrate (Tricor) 145 mg PO QHS [facility] Last Admin: 08/15/17 22:10 Dose: 145 mg Hydralazine HCl (Apresoline) 25 mg PO BID [facility] Last Admin: 08/16/17 08:38 Dose: 25 mg Isosorbide Dinitrate (Isordil) 5 mg PO TID [facility] Last Admin: 08/16/17 08:36 Dose: Not Given Levothyroxine Sodium (Synthroid) 112 mcg PO DAILY@0600 [facility] Last Admin: 08/16/17 05:16 Dose: 112 mcg Metolazone (Zaroxolyn) 2.5 mg PO UD [facility] Morphine Sulfate (Morphine) 1 - 2 mg IV Q4H PRN PRN PRN Reason: SEVERE PAIN (6-10/10) Ondansetron HCl (Zofran) 4 mg IV Q6H PRN PRN PRN Reason: Nausea Oxycodone HCl (Oxyir) 5 mg PO Q4H PRN PRN PRN Reason: Moderate Pain (pain scale 4-5) [facility] Sodium Chloride () 5 - 30 ml IV UD PRN PRN Reason: SALINE FLUSH Tamsulosin HCl (Flomax) 0.4 mg PO DAILY@1730 [facility] Last Admin: 08/15/17 17:00 Dose: 0.4 mg Warfarin Sodium (Coumadin (Pbkc)) 3 mg PO DAILY@1700 [facility] Last Admin: 08/15/17 17:00 Dose: 3 mg Zolpidem Tartrate (Ambien (Generic)) 5 mg PO QHS PRN PRN PRN Reason: INSOMNIA - Past Medical History Past Medical History (Chronic Problems): Chronic Problems History of stent insertion of renal artery (Chronic) Anemia (Chronic) Bilateral atelectasis (Chronic) Respiratory failure with hypoxia and hypercapnia (Chronic) Coronary artery disease (Chronic) Peripheral arterial occlusive disease (Chronic) Pleural effusion (Chronic) Acute cor pulmonale (Chronic) Ischemic cardiomyopathy (Chronic) EF 20% on 10/27/16 Chronic anticoagulation (Chronic) On warfarin Pulmonary hypertension (Chronic) Atrial fibrillation (Chronic) Hyperlipemia (Chronic) COPD (chronic obstructive pulmonary disease) (Chronic) mild. no chronic medications Hypertension (Chronic) Urine retention (Chronic) Hypothyroidism (Chronic) Former smoker, stopped smoking in distant past (Chronic) Quit in 1999 AICD (automatic cardioverter/defibrillator) present (Chronic) Pacemaker (Chronic) Diverticulosis (Chronic) Left renal artery stenosis (Chronic) Stent done in February History of PTCA (Chronic) - Past Surgical History Surgical History: angioplasty - With stent, 3 times, cataract, pacemaker implantation - AICD, - - Aortobifemoral grafting, left renal artery stent - Social History Smoking Status: Former smoker - Family History Maternal History Items: Heart Disease Paternal History Items: Heart Disease, Pulmonary Disease - Black lung Patient Problems: Active and Suspected Problems Acute on chronic combined severe HF (Acute) Anasarca (Acute) Warfarin-induced coagulopathy (Acute) Acute kidney injury on CKD stage III (Acute) CHF (congestive heart failure) (Acute) Acute kidney injury superimposed on chronic kidney disease (Acute) - Physical Exam General: Alert, Oriented x3 HEENT: Atraumatic Oral: Moist Mucosa Neck: Supple, No JVD Lungs: - - Equal air entry. Bilateral crackles over both lungs bases Cardiovascular: Regular rate, Regular Rhythm, Normal S1, Normal S2 Abdomen: Bowel Sounds Present, Soft, Non Tender Extremities: No clubbing, No cyanosis, - - Trace edema of lower extent Skin: No rashes Lymphatic: No Cervical, Supraclavicular, or Inguinal Adenopathy Neurological: Cranial nerves II-XII grossly intact, Neuro grossly intact Psych/Mental Status: Normal Affect Vital Signs Temp Pulse Resp BP Pulse Ox 98.6 F 72 18 101/58 L 95 08/16/17 08:32 08/16/17 08:38 08/16/17 08:32 08/16/17 08:32 08/16/17 08:32 Oxygen Flow Rate 4 Oxygen Delivery Method Nasal Cannula Weight: 94.4 kg Body Mass Index (BMI) 35.0 Intake and Output for Last 24 Hours 08/14/17 08/15/17 08/16/17 23:59 23:59 23:59 Intake Total 1067.1 / 1067.1 756 / 756 412.0 / 412.0 Output Total 4930 / 4930 4275 / 4275 3750 / 3750 Balance -3862.9 / -3862.9 -3519 / -3519 -3338.0 / -3338.0 Laboratory Tests Past 24 Hrs 08/16/17 08/16/17 05:20 05:20 PT 21.0 H INR 1.9 Sodium 139 Potassium 3.1 L Chloride 89 L Carbon Dioxide 45.0 H Anion Gap 5 BUN 29 H Creatinine 1.59 H Estim Creat Clear Calc 41.57 Est GFR (MDRD) Af Amer 56 L Est GFR (MDRD) Non-Af 46 L BUN/Creatinine Ratio 18.2 Glucose 86 Calcium 8.8 Assessment/Plan Active and Suspected Problems Acute on chronic combined severe HF (Acute) Anasarca (Acute) Warfarin-induced coagulopathy (Acute) Acute kidney injury on CKD stage III (Acute) CHF (congestive heart failure) (Acute) Acute kidney injury superimposed on chronic kidney disease (Acute) 1-acute kidney injury and chronic kidney disease. Baseline creatinine fluctuated between 1.2-1.9 reflecting the change in the hemodynamic status from poor ejection fraction and diuretics use. ATN now is most probably related to cardiorenal syndrome. Creatinine improved with diuretics. Now creatinine 1.6. Creatinine peaked at 1.9 mg/dL when the patient initially presented to the hospital. I agree with the diuretics continuation. I will decrease the dose of Bumex to 2 mg p.o. 3 times daily along with metolazone. I will give the patient 1 dose of acetazolamide for metabolic alkalosis I will continue to monitor kidney function and electrolytes with diuretics. Avoid NSAIDs for now. Avoid JUANITA inhibitor/ARB/ 2- Hypokalemia. Most probably from diuretics. I will give potassium chloride 40 mEq IV 1 dose today. I will check magnesium level tomorrow 3-metabolic alkalosis. Most probably from volume contraction due to high volume diuresis. I will give 1 dose of acetazolamide 4-systolic heart failure decompensation. Improving with diuretics. Cardiology is following Thank you for the consult. We will continue to follow Chari Downey [phone]
--- NOTE | 2017-08-16 11:49 | PCM.PN.CARD ---
Subjectve: Patient continues to diurese quite well, and is feeling much better. Still complains of some mild abdominal girth, but is eating much better. Lower extremity edema is almost completely resolved. Objective: Vital Signs Temp Pulse Resp BP Pulse Ox 98.6 F 79 18 101/58 L 95 08/16/17 08:32 08/16/17 11:08 08/16/17 08:32 08/16/17 08:32 08/16/17 08:32 Oxygen Flow Rate 4 Oxygen Delivery Method Nasal Cannula Weight: 208 lb 1.862 oz Body Mass Index (BMI) 35.0 Intake and Output for Last 24 Hours 08/14/17 08/15/17 08/16/17 23:59 23:59 23:59 Intake Total 1067.1 / 1067.1 756 / 756 412.0 / 412.0 Output Total 4930 / 4930 4275 / 4275 3750 / 3750 Balance -3862.9 / -3862.9 -3519 / -3519 -3338.0 / -3338.0 General: Awake, Alert, Oriented x 3 HEENT: PERRL, EOMI, Sclera Non Icteric Neck: Supple, Good ROM, No Lymph Node Enlargement Lungs: Clear to auscultation Cardiovascular: Irregular Rhythm, Normal S1, Normal S2, No Murmurs, No Rubs, No Gallops 08/16/17 05:20: PT 21.0 H, INR 1.9 08/16/17 05:20: Sodium 139, Potassium 3.1 L, Chloride 89 L, Carbon Dioxide 45.0 H, Anion Gap 5, BUN 29 H, Creatinine 1.59 H, Est GFR (MDRD) Af Amer 56 L, Est GFR (MDRD) Non-Af 46 L, BUN/Creatinine Ratio 18.2, Glucose 86, Calcium 8.8 Rhythm: EKG: ECHO: Stress Test: Cardiac Cath: PCI: CT Surgery: Holter monitor: EPS: PPM: CXR: Chest CT Scan: Assessment/Plan 1. Ischemic cardiomyopathy: The patient has evidence of biventricular failure and pulmonary hypertension as well as recurrence of his right pleural effusion. His chest x-ray does not appear to show a an excessive amount of right sided pleural effusion, and my hope would be is that we could diurese him to the point where that would improve without undergoing a repeat thoracentesis. We switched the patient to IV Bumex yesterday 0.5 mg/h, and he has diuresed quite well with an actually an improvement of his creatinine since admission. We have discontinued his amlodipine due to his lower extremity edema, and would recommend not restarting it. Patient is an almost 10 L of diuresis since admission, and we will discontinue his Bumex drip. Recommend increasing his p.o. Lasix to 60 mg p.o. twice daily and continuing metolazone 2.5 mg q. Wednesday and to augment diuresis going forward. In addition I recommend a 1500 cc fluid restriction, ABBIE hose while he is in house to facilitate venous return. I do not believe the patient requires repeat catheterization, stress test or echocardiogram at this time. 2. Atrial fibrillation: The patient is remaining in normal sinus rhythm with the assistance of Coreg, Accupril, and amiodarone. This morning however he had evidence of atrial fibrillation with RVR, and recommend replacing his potassium 20 mill equivalent ?1 followed by 10 mEq p.o. daily. I recommend discontinuation of his Norvasc as this may be contributing to his leg edema. Should he have increased blood pressure, we can add Imdur 30 mg p.o. daily and titrate up from there. 3. Hyperlipidemia: Continue Crestor and Zetia therapy. Recommend repeat lipid profile. 4. Thank you very much for the opportunity to put dissipate in the cardiac care of your patient. Recommend DC home tomorrow if tolerating diuretics and potassium stabilized. Code Visit Inpatient E&M: 29333 Subs Hosp L2
[2017-08-16] MEDS: AcetaZOLAMIDE 500 MG/10 ML Vial 250 MG IV (12:15)
[2017-08-16] MEDS: 0.9% NaCl Peripheral Flush Adult/Peds IV (12:15)
[2017-08-16] MEDS: Tamsulosin HCl 0.4 MG Capsule PO (17:03)
[2017-08-16] MEDS: Fenofibrate 145 MG Tablet PO (22:01)
[2017-08-16] MEDS: Atorvastatin Calcium 80 MG Tablet PO (22:01)
[2017-08-17] VITALS (8 sets, daily range): BP systolic 99–113; BP diastolic 43–59; PULSE 67–80; RESP 14–16; TEMP 36.7–36.9; O2SAT 92–100
[2017-08-17] MEDS: Levothyroxine 112 MCG Tablet PO (06:21)
[2017-08-17] MEDS: Budesonide Respules 0.5 MG/2 ML AMPUL.NEB. INHALATION (06:55)
[2017-08-17] MEDS: Ipratropium/Albuterol Sulfate 3 ML AMPUL.NEB INHALATION (06:55)
[2017-08-17 07:29] LABS: International Normalized Ratio 1.7; Prothrombin Time (Protime)PT. 19.3 SECONDS (11.7-14.9)
[2017-08-17 07:30] LABS: Hematocrit 32.4 % (40-54); Hemoglobin 8.7 g/dl (13.0-16.5); Mean Corp Hgb Conc 26.9 g/gl (32-36); Mean Corpuscular Hgb 21.7 pg (27.0-32.0); Mean Corpuscular Volume 80.8 fL (80-94); Platelet Count 163 K/mm3 (150-450); RBC Distribution Width CV 18.8 % (11.6-14.6); RBC Distribution Width SD 53.8 fl (35.1-43.9); Red Blood Count 4.01 M/mm3 (4.6-6.2); White Blood Count 5.2 K/mm3 (4.4-11.0)
[2017-08-17 07:37] LABS: Scan Indicated on CBC? Y/N NO
[2017-08-17 07:44] LABS: Anion Gap 4 (5-15); BUN 31 mg/dL (7-18); BUN/Creat Ratio 18.5 RATIO (10-20); Calcium,Total 9.1 mg/dL (8.5-10.1); Chloride 92 mmol/L (98-107); Creatinine, Serum 1.68 mg/dL (0.70-1.30); EST Glomerular Filtration Rate 43 mL/min (>60); Est Glom Filt Rate - Afr Amer 52 mL/min (>60); Estimated Creatinine Clearance 39.35 ml/min; Glucose 85 mg/dL (70-110); Magnesium 2.2 mg/dL (1.6-2.6); Potassium 3.3 mmol/L (3.5-5.1); Sodium Level 139 mmol/L (136-145)
[2017-08-17] MEDS: Aspirin E.C. 81 MG Tablet PO (07:52)
[2017-08-17] MEDS: Metolazone 2.5 MG Tablet PO (09:39)
[2017-08-17] MEDS: Ezetimibe 10 MG Tablet PO (09:39)
[2017-08-17] MEDS: Amiodarone 200 MG Tablet PO (09:39)
--- NOTE | 2017-08-17 10:36 | PCM.PN.REN ---
Patient Problems: Active and Suspected Problems Acute on chronic combined severe HF (Acute) Anasarca (Acute) Warfarin-induced coagulopathy (Acute) Acute kidney injury on CKD stage III (Acute) CHF (congestive heart failure) (Acute) Acute kidney injury superimposed on chronic kidney disease (Acute) Subjective: No acute complaints. Breathing is much better and leg edema has resolved. Made 6.5 L UOP On NC 2 l/m - Physical Exam General: Alert, Oriented x3 HEENT: Atraumatic Oral: Moist Mucosa Neck: Supple, No JVD Lungs: Clear to auscultation, Normal air movement Cardiovascular: Regular rate, Regular Rhythm, Normal S1, Normal S2 Abdomen: Bowel Sounds Present, Soft, Non Tender, Non-Distended Extremities: No clubbing, No cyanosis, No edema Skin: No rashes Musculoskeletal: No Tenderness to Palpation of Joints or Extremities Lymphatic: No Cervical, Supraclavicular, or Inguinal Adenopathy Neurological: Cranial nerves II-XII grossly intact, Neuro grossly intact Psych/Mental Status: Normal Affect Vital Signs Temp Pulse Resp BP Pulse Ox 98.5 F 70 16 108/57 L 100 08/17/17 08:32 08/17/17 08:50 08/17/17 08:32 08/17/17 08:41 08/17/17 08:32 Oxygen Flow Rate 3 Oxygen Delivery Method Nasal Cannula Weight: 94.4 kg Body Mass Index (BMI) 35.0 Intake and Output for Last 24 Hours 08/15/17 08/16/17 08/17/17 23:59 23:59 23:59 Intake Total 756 / 756 842.0 / 842.0 300 / 300 Output Total 4275 / 4275 6525 / 6525 2600 / 2600 Balance -3519 / -3519 -5683.0 / -5683.0 -2300 / -2300 Laboratory Tests Past 24 Hrs 08/17/17 08/17/17 08/17/17 06:18 06:18 06:18 WBC 5.2 RBC 4.01 L Hgb 8.7 L Hct 32.4 L MCV 80.8 MCH 21.7 L MCHC 26.9 L RDW 18.8 H RDW Differential 53.8 H Plt Count 163 MPV 11.0 PT 19.3 H INR 1.7 Sodium 139 Potassium 3.3 L Chloride 92 L Carbon Dioxide 43.0 H Anion Gap 4 L BUN 31 H Creatinine 1.68 H Estim Creat Clear Calc 39.35 Est GFR (MDRD) Af Amer 52 L Est GFR (MDRD) Non-Af 43 L BUN/Creatinine Ratio 18.5 Glucose 85 Calcium 9.1 Magnesium 2.2 08/17/17 06:18 WBC RBC Hgb Hct MCV MCH MCHC RDW RDW Differential Plt Count MPV PT INR Sodium Potassium Chloride Carbon Dioxide Anion Gap BUN Creatinine Estim Creat Clear Calc Est GFR (MDRD) Af Amer Est GFR (MDRD) Non-Af BUN/Creatinine Ratio Glucose Calcium Magnesium Cancelled Assessment/Plan Active and Suspected Problems Acute on chronic combined severe HF (Acute) Anasarca (Acute) Warfarin-induced coagulopathy (Acute) Acute kidney injury on CKD stage III (Acute) CHF (congestive heart failure) (Acute) Acute kidney injury superimposed on chronic kidney disease (Acute) 1-acute kidney injury and chronic kidney disease. Baseline creatinine fluctuated between 1.2-1.9 reflecting the change in the hemodynamic status from poor ejection fraction and diuretics use. ATN now is most probably related to cardiorenal syndrome. Creatinine improved with diuretics. Now creatinine 1.6-1.7 mg/dl. Creatinine peaked at 1.9 mg/dL when the patient initially presented to the hospital. s/p lsaix and bumex drip along with metolazone with excellent diuresis. now on lasix 60 BID and metolazone thrice weekly. s/p one dose of acetazolamide yesterday for metabolic alkalosis. Okay to continue the current dose of diuretics 2- Hypokalemia. Most probably from diuretics. will start patient on KCl 40 mEq daily 3-metabolic alkalosis. Most probably from volume contraction due to high volume diuresis. s/p one dose of acetazolamide 250 mg IV . HCO3 is slightly better to 42 4-systolic heart failure decompensation. Improving with diuretics. Cardiology is following. HR is well controlled Okay to discharge patient on the current dose of diuretics. Will arrange for clinic visit in 2 weeks after discharge Thank you for the consult. We will continue to follow Chari Downey [phone]
--- NOTE | 2017-08-17 10:38 | PN.CARD_ITS ---
Subjectve: Patient feels great this morning, no 24 hour events. Telemetry shows normal sinus rhythm per. Lower extremity edema completely resolved. Bumex drip discontinued yesterday and switched over to Lasix. Objective: Vital Signs Temp Pulse Resp BP Pulse Ox 98.5 F 70 16 108/57 L 100 08/17/17 08:32 08/17/17 08:50 08/17/17 08:32 08/17/17 08:41 08/17/17 08:32 Oxygen Flow Rate 3 Oxygen Delivery Method Nasal Cannula Weight: 208 lb 1.862 oz Body Mass Index (BMI) 35.0 Intake and Output for Last 24 Hours 08/15/17 08/16/17 08/17/17 23:59 23:59 23:59 Intake Total 756 / 756 842.0 / 842.0 300 / 300 Output Total 4275 / 4275 6525 / 6525 2600 / 2600 Balance -3519 / -3519 -5683.0 / -5683.0 -2300 / -2300 General: Awake, Alert, Oriented x 3 HEENT: PERRL, EOMI, Sclera Non Icteric Neck: Supple, Good ROM, No Lymph Node Enlargement Lungs: Clear to auscultation Cardiovascular: Irregular Rhythm, Normal S1, Normal S2, No Murmurs, No Rubs, No Gallops Vascular: No Carotid Bruits, Normal Femoral Pulses, Normal Radial Pulses, Normal Dorsalis Pedal Pulse, Normal Posterior Tibial Pulses Abdomen: Bowel Sounds Present, Soft, Non Tender, No HSM, No Organomegaly Extremities: No Cyanosis, No Clubbing, No edema Neurological: No Focal Motor or Sensory Deficit 08/17/17 06:18: WBC 5.2, RBC 4.01 L, Hgb 8.7 L, Hct 32.4 L, MCV 80.8, MCH 21.7 L , MCHC 26.9 L, RDW 18.8 H, RDW Differential 53.8 H, Plt Count 163, MPV 11.0 08/17/17 06:18: PT 19.3 H, INR 1.7 08/17/17 06:18: Sodium 139, Potassium 3.3 L, Chloride 92 L, Carbon Dioxide 43.0 H, Anion Gap 4 L, BUN 31 H, Creatinine 1.68 H, Est GFR (MDRD) Af Amer 52 L, Est GFR (MDRD) Non-Af 43 L, BUN/Creatinine Ratio 18.5, Glucose 85, Calcium 9.1, Magnesium 2.2 08/17/17 06:18: Magnesium Cancelled Rhythm: EKG: ECHO: Stress Test: Cardiac Cath: PCI: CT Surgery: Holter monitor: EPS: PPM: CXR: Chest CT Scan: Assessment/Plan 1. Ischemic cardiomyopathy: The patient has evidence of biventricular failure and pulmonary hypertension as well as recurrence of his right pleural effusion. His chest x-ray does not appear to show a an excessive amount of right sided pleural effusion, and my hope would be is that we could diurese him to the point where that would improve without undergoing a repeat thoracentesis. Patient is reached his dry weight, and is doing well switching over to p.o. Lasix. Recommend increasing his outpatient Lasix dose to 60 mg p.o. twice daily , and continuing metolazone 2.5 mg every Wednesday and . No indication for repeat catheterization at this time. In addition I recommend a 1500 cc fluid restriction, ABBIE hose while he is in house to facilitate venous return. I do not believe the patient requires repeat catheterization, stress test or echocardiogram at this time. 2. Atrial fibrillation: The patient is remaining in normal sinus rhythm with the assistance of Coreg, Accupril, and amiodarone. This morning however he had evidence of atrial fibrillation with RVR, and recommend replacing his potassium 20 mill equivalent ?1 followed by 10 mEq p.o. daily. I recommend discontinuation of his Norvasc as this may be contributing to his leg edema. Should he have increased blood pressure, we can add Imdur 30 mg p.o. daily and titrate up from there. 3. Hyperlipidemia: Continue Crestor and Zetia therapy. Recommend repeat lipid profile. 4. Thank you very much for the opportunity to put dissipate in the cardiac care of your patient. Patient may be discharged home today. He will follow-up with me going forward. Code Visit Inpatient E&M: 27615 Subs Hosp L2
--- NOTE | 2017-08-17 11:00 | DS.PCM_ITS ---
Discharge Date and Diagnosis Date of Admission: 08/13/17 Date of Discharge: 08/17/17 - Primary Discharge Diagnosis Active and Suspected Problems Acute on chronic combined severe HF (Acute) Anasarca (Acute) Warfarin-induced coagulopathy (Acute) Acute kidney injury on CKD stage III (Acute) CHF (congestive heart failure) (Acute) Acute kidney injury superimposed on chronic kidney disease (Acute) - Secondary Discharge Diagnosis Chronic Problems History of stent insertion of renal artery (Chronic) Anemia (Chronic) Bilateral atelectasis (Chronic) Respiratory failure with hypoxia and hypercapnia (Chronic) Coronary artery disease (Chronic) Peripheral arterial occlusive disease (Chronic) Pleural effusion (Chronic) Acute cor pulmonale (Chronic) Ischemic cardiomyopathy (Chronic) EF 20% on 10/27/16 Chronic anticoagulation (Chronic) On warfarin Pulmonary hypertension (Chronic) Atrial fibrillation (Chronic) Hyperlipemia (Chronic) COPD (chronic obstructive pulmonary disease) (Chronic) mild. no chronic medications Hypertension (Chronic) Urine retention (Chronic) Hypothyroidism (Chronic) Former smoker, stopped smoking in distant past (Chronic) Quit in 1999 AICD (automatic cardioverter/defibrillator) present (Chronic) Pacemaker (Chronic) Diverticulosis (Chronic) Left renal artery stenosis (Chronic) Stent done in February History of PTCA (Chronic) Hospital Course and Treatment Operations: None Summary of Care Provided: Patient is a 66-year-old male with multiple comorbidities including CAD status post 3 previous stent placement ischemic cardiomyopathy with EF of 20% admitted with progressive shortness of breath spent of acute congestive heart failure made admitted to a monitored nursing floor for 1. Acute on chronic systolic congestive heart failure with an ejection fraction of 20%: Patient was managed with Bumex drip improve with therapy switched to Zaroxolyn on 08/16/17. Patient did improve with therapy 2. Ischemic cardiomyopathy status post AICD placement 3. CAD with previous stent placement 4. Chronic A. fib rate controlled on systemic anticoagulation with Coumadin 5. Chronic hypoxic respiratory failure secondary to patient's CHF as well as COPD on baseline home O2 6. Acute hypoxic respiratory failure superimposed on chronic respiratory failure secondary to #1 7. Severe pulmonary hypertension 8. Morbid obesity with BMI of 32.6 9. Hypertension-blood pressure controlled, home medications continued with dose adjustment as needed 10. Right-sided pleural effusion attributed to patient underlying congestive heart failure 11. Peripheral arterial occlusive disease status post aortic bypass graft, 12. Dyslipidemia-patient is on statin therapy, continued at home dose 13. BPH 14. Renal artery stenosis status post stenting in February 2008 15. Hypokalemia secondary to patient being on diuretics corrected per protocol 16. Chronic kidney disease stage III 17. DVT prophylaxis patient is on Coumadin Discharge Diet: 8 Cup Fluid Restriciton Home Medications: Medications to take at Discharge Amiodarone HCl 100 mg PO BID 10/31/13 Aspirin [Aspirin, Baby] 81 mg PO DAILY 10/31/13 Ezetimibe [Zetia] 10 mg PO QHS 10/31/13 Fenofibrate Nanocrystallized [Fenofibrate] 145 mg PO QHS 10/31/13 Rosuvastatin Calcium [Crestor] 40 mg PO QHS 10/31/13 Albuterol IH (ProAir) [Proair Hfa] 2 puff INHALATION Q4H PRN 06/25/16 Budesonide/Formoterol 160/4.5 [Symbicort 160/4.5 Mcg Inhaler (SP)] 2 puff INHALATION BID 06/25/16 Tiotropium [place] [Spiriva 18 MCG] 2 puff INHALATION DAILY 06/25/16 Carvedilol 25 mg PO BID 08/13/17 Levothyroxine [Synthroid] 112 mcg PO DAILY 08/13/17 Tamsulosin HCl [Flomax] 0.4 mg PO DAILY@1730 08/13/17 Warfarin [Coumadin] 3 mg PO DAILY 08/13/17 Furosemide [Lasix] 60 mg PO BID@1000,1800 #180 tab 08/17/17 HydrALAZINE [Apresoline] 25 mg PO BID #60 tab 08/17/17 Isosorbide DN [Isordil] 5 mg PO TID #90 tab 08/17/17 Metolazone [Zaroxolyn] 2.5 mg PO TuTh@1000 #30 tab 08/17/17 Potassium Chloride [K-Dur] 20 meq PO DAILY #60 tab 08/17/17 Following Prescrptions Were Given to Patient: Furosemide [Lasix] 60 mg PO BID@1000,1800 #180 tab HydrALAZINE [Apresoline] 25 mg PO BID #60 tab Isosorbide DN [Isordil] 5 mg PO TID #90 tab Metolazone [Zaroxolyn] 2.5 mg PO TuTh@1000 #30 tab Potassium Chloride [K-Dur] 20 meq PO DAILY #60 tab Primary Care Physician: Brent Mcgregor MD [STAFF PHYSICIAN] - Please follow up with your Primary Care Physician in: in 2-4 weeks Please Follow Up With: Chari Downey MD When: in 2 weeks Patient Instructions: ED CHF General Disposition: Home Minutes spent on discharge:: 35 Patient Condition:: Stable Meaningful Use Info Meaningful Use Diagnoses (Choose all that apply): CHF - CHF JUANITA/ARB ordered at discharge?: Yes Reason JUANITA/ARB not ordered?: Worsening renal disease Documented LVEF (%): 20 Code Visit Inpatient E&M: 37799 Disch Hosp
--- NOTE | 2017-08-17 11:02 | DCINST_ITS ---
- Discharge Diagnoses Current Active Problems: Current Active and Chronic Problems Acute on chronic combined severe HF (Acute) Anasarca (Acute) Warfarin-induced coagulopathy (Acute) Acute kidney injury on CKD stage III (Acute) CHF (congestive heart failure) (Acute) Acute kidney injury superimposed on chronic kidney disease (Acute) You will use the following diet at home:: Cardiac, Fluid restricted (specify 2000 mls, 1500 mls) - 2000 Your food should be the consistency of: Regular Instructions: ED CHF General Allergies/Adverse Reactions: Allergies No Known Allergies Allergy (Verified 03/11/17 15:00) Medications to take at Discharge Amiodarone HCl 100 mg PO BID 10/31/13 Aspirin [Aspirin, Baby] 81 mg PO DAILY 10/31/13 Ezetimibe [Zetia] 10 mg PO QHS 10/31/13 Fenofibrate Nanocrystallized [Fenofibrate] 145 mg PO QHS 10/31/13 Rosuvastatin Calcium [Crestor] 40 mg PO QHS 10/31/13 Albuterol IH (ProAir) [Proair Hfa] 2 puff INHALATION Q4H PRN 06/25/16 Budesonide/Formoterol 160/4.5 [Symbicort 160/4.5 Mcg Inhaler (SP)] 2 puff INHALATION BID 06/25/16 Tiotropium [place] [Spiriva 18 MCG] 2 puff INHALATION DAILY 06/25/16 Carvedilol 25 mg PO BID 08/13/17 Levothyroxine [Synthroid] 112 mcg PO DAILY 08/13/17 Tamsulosin HCl [Flomax] 0.4 mg PO DAILY@1730 08/13/17 Warfarin [Coumadin] 3 mg PO DAILY 08/13/17 Furosemide [Lasix] 60 mg PO BID@1000,1800 #180 tab 08/17/17 HydrALAZINE [Apresoline] 25 mg PO BID #60 tab 08/17/17 Isosorbide DN [Isordil] 5 mg PO TID #90 tab 08/17/17 Metolazone [Zaroxolyn] 2.5 mg PO TuTh@1000 #30 tab 08/17/17 Potassium Chloride [K-Dur] 20 meq PO DAILY #60 tab 08/17/17 The following prescriptions were given: Furosemide [Lasix] 60 mg PO BID@1000,1800 #180 tab HydrALAZINE [Apresoline] 25 mg PO BID #60 tab Isosorbide DN [Isordil] 5 mg PO TID #90 tab Metolazone [Zaroxolyn] 2.5 mg PO TuTh@1000 #30 tab Potassium Chloride [K-Dur] 20 meq PO DAILY #60 tab Primary Care Physician: Brent Mcgregor MD [STAFF PHYSICIAN] - Please follow up with your Primary Care Physician in: in 2-4 weeks Please Follow Up With: Chari Downey MD When: in 2 weeks Proposed Discharge Date: 08/17/17
== END 2017-08-17 13:08 | disposition home or self-care (01) | DRG 291 ==
LOC: ED 16:17 → PCU 16:26
PROVIDERS: Internal Medicine; Admitting Provider Internal Medicine; Emergency Provider Emergency Medicine; Family Provider Family Medicine; PCP Family Medicine; Visit Provider Internal Medicine
DX: I13.0 Hypertensive heart and chronic kidney disease with heart failure and stage 1 through stage 4 chronic kidney disease, or unspecified chronic kidney disease (principal); J96.21 Acute and chronic respiratory failure with hypoxia; I27.20 Pulmonary hypertension, unspecified; I48.2 Chronic atrial fibrillation; I73.9 Peripheral vascular disease, unspecified; J44.9 Chronic obstructive pulmonary disease, unspecified; E78.5 Hyperlipidemia, unspecified; N18.3 Chronic kidney disease, stage 3 (moderate); I25.5 Ischemic cardiomyopathy; I25.119 Atherosclerotic heart disease of native coronary artery with unspecified angina pectoris; Z95.810 Presence of automatic (implantable) cardiac defibrillator; E66.01 Morbid (severe) obesity due to excess calories; Z68.32 Body mass index [BMI] 32.0-32.9, adult; N40.1 Benign prostatic hyperplasia with lower urinary tract symptoms; Z87.891 Personal history of nicotine dependence; E87.6 Hypokalemia; Z79.01 Long term (current) use of anticoagulants; Z95.5 Presence of coronary angioplasty implant and graft; Z79.899 Other long term (current) drug therapy; D64.9 Anemia, unspecified; E03.9 Hypothyroidism, unspecified; R79.1 Abnormal coagulation profile
CPT/HCPCS: 36415; 71046; 80048; 80061; 83735; 83880; 84443; 84484; 85025; 85027; 85610; 93005; 94640; 97802; 99285; A4216; J1940

== ENCOUNTER 2017-08-26 09:01 | Outpatient (RCR) | payer MEDICARE, OTHER, SELFPAY ==
[2017-08-26 09:29] LABS: International Normalized Ratio 2.3; Prothrombin Time (Protime)PT. 24.3 SECONDS (11.7-14.9)
[2017-08-26 10:00] LABS: Anion Gap 6 (5-15); BUN 71 mg/dL (7-18); BUN/Creat Ratio 40.3 RATIO (10-20); Calcium,Total 9.1 mg/dL (8.5-10.1); Chloride 89 mmol/L (98-107); Creatinine, Serum 1.76 mg/dL (0.70-1.30); EST Glomerular Filtration Rate 41 mL/min (>60); Est Glom Filt Rate - Afr Amer 50 mL/min (>60); Glucose 112 mg/dL (74-106); Potassium 3.7 mmol/L (3.5-5.1); Sodium Level 135 mmol/L (136-145)
== END 2017-08-26 15:00 | disposition home or self-care (01) ==
LOC: LAB 09:01
PROVIDERS: Internal Medicine; Visit Provider Internal Medicine Cardiovascular Disease
DX: I48.1 Persistent atrial fibrillation (principal); N17.9 Acute kidney failure, unspecified; N18.3 Chronic kidney disease, stage 3 (moderate)
CPT/HCPCS: 36415; 80048; 85610

== ENCOUNTER 2017-10-11 09:14 | Outpatient (RCR) | payer MEDICARE, OTHER, SELFPAY ==
[2017-09-24 09:22] LABS: International Normalized Ratio 1.8; Prothrombin Time (Protime)PT. 20.7 SECONDS (11.7-14.9)
[2017-10-11 10:03] LABS: International Normalized Ratio 2.9; Prothrombin Time (Protime)PT. 30.8 SECONDS (11.7-14.9)
== END 2017-10-11 10:00 | disposition home or self-care (01) ==
LOC: LAB 09:14
PROVIDERS: Visit Provider Internal Medicine Cardiovascular Disease
DX: I48.1 Persistent atrial fibrillation (principal)
CPT/HCPCS: 36415; 85610

== ENCOUNTER 2017-11-16 09:02 | Outpatient (RCR) | payer MEDICARE, OTHER, SELFPAY ==
[2017-11-16 10:25] LABS: International Normalized Ratio 1.9; Prothrombin Time (Protime)PT. 21.4 SECONDS (11.7-14.9)
== END 2017-11-16 10:00 | disposition home or self-care (01) ==
LOC: LAB 09:02
PROVIDERS: Visit Provider Internal Medicine Cardiovascular Disease
DX: I48.1 Persistent atrial fibrillation (principal)
CPT/HCPCS: 36415; 85610

== ENCOUNTER → 2017-11-26 06:49 | Outpatient (CLI) | payer MEDICARE, OTHER, SELFPAY ==
[2017-11-26 08:34] LABS: Color, Urine Yellow (Yellow); Glucose, Dipstick Normal (Normal); Ketone-Dipstick Negative (Negative); Leukocyte Esterase-Dipstick Negative /ul (Negative); Nitrite-Dipstick Negative (Negative); Occult Blood-Urine 10 /ul (Negative); Protein-Dipstick 15 mg/dl (Negative); Urine Bilirubin Dipstick Negative (Negative); Urine Clarity Sl. Cloudy (Clear); Urine Urobilinogen Normal (Normal); Urine pH 6.5 (5.0 - 8.0)
[2017-11-26 08:39] LABS: Hemoglobin 7.3 g/dl (13.0-16.5); Immature Platelet Fraction 6.6 % (1.0-7.9); Mean Corp Hgb Conc 26.1 g/gl (32-36); Mean Corpuscular Hgb 19.9 pg (27.0-32.0); Mean Corpuscular Volume 76.5 fL (80-94); Platelet Count 148 K/mm3 (150-450); RBC Distribution Width CV 18.7 % (11.6-14.6); RBC Distribution Width SD 52.2 fl (35.1-43.9); RET-HE 15.1 pg (30-35); Red Blood Count 3.66 M/mm3 (4.6-6.2); Reticulocyte Count 1.79 % (0.5-1.5); White Blood Count 5.6 K/mm3 (4.4-11.0)
[2017-11-26 08:40] LABS: Scan Indicated on CBC? Y/N YES- FLAGS NOTED
[2017-11-26 08:44] LABS: Protein:Creat Ratio 451 mg/g CRE (0-200)
[2017-11-26 08:50] LABS: White Blood Cells 0-5 SEEN /hpf (0-5)
[2017-11-26 08:51] LABS: Bacteria RARE /hpf (None Seen); Mucous, Urine 1+ /hpf (<or=2+); Red Blood Cells-Urine 0-5 SEEN /hpf (0-5)
[2017-11-26 08:52] LABS: Squamous Epithelial Cells - UA 5-10 SEEN /hpf (0-5)
[2017-11-26 09:15] LABS: Albumin, Serum 3.1 g/dL (3.2-5.0); BUN 58 mg/dL (7-18); BUN/Creat Ratio 25.2 RATIO (10-20); Calcium,Total 8.6 mg/dL (8.5-10.1); Chloride 95 mmol/L (98-107); EST Glomerular Filtration Rate 30 mL/min (>60); Est Glom Filt Rate - Afr Amer 37 mL/min (>60); Ferritin 41 ng/mL (26-388); Glucose 89 mg/dL (74-106); Iron 21 ug/dL (65-175); Iron Binding Capacity,Total 615 ug/dL (250-450); Phosphorus 3.4 mg/dL (2.5-4.9); Potassium 3.2 mmol/L (3.5-5.1); Sodium Level 141 mmol/L (136-145)
[2017-11-26 09:38] LABS: Vitamin B12 599 pg/mL (211-911); Vitamin D,25 Hydroxy 20.3 ng/mL (29.95-100.01)
[2017-11-26 10:07] LABS: PTHIN 180.8 pg/mL (18.4-80.1)
== END ==
PROVIDERS: Visit Provider Internal Medicine Nephrology
DX: N18.3 Chronic kidney disease, stage 3 (moderate) (principal)
CPT/HCPCS: 36415; 80069; 81001; 82306; 82570; 82607; 82728; 83540; 83550; 83970; 84156; 85027; 85045

== ENCOUNTER 2017-12-01 11:49 | Inpatient (IN) | payer MEDICARE, OTHER, SELFPAY ==
[2017-12-01] VITALS (14 sets, daily range): BP systolic 88–133; BP diastolic 52–70; PULSE 62–82; RESP 16–22; TEMP 36.2–37.1; O2SAT 98–100; BMI 32.9; BMI 32.6
--- NOTE | 2017-12-01 13:28 | EKG12_ITS ---
Test Reason : EDEMA Blood Pressure : / mmHG Vent. Rate : 067 BPM Atrial Rate : 326 BPM P-R Int : 000 ms QRS Dur : 106 ms QT Int : 442 ms P-R-T Axes : 000 000 238 degrees QTc Int : 467 ms Atrial fibrillation with frequent ventricular-paced complexes ST & T wave abnormality, consider anterolateral ischemia Abnormal ECG Confirmed by GAGE MESSINA, NIKOLAS ([id number]), supervising editor trailer SHERON JOHNSON ([id number]) on 12/03/2017 1:31:30 PM Referred By: Chari Downey Confirmed By:NIKOLAS ALMONTE MD
--- NOTE | 2017-12-01 13:29 | RAD_ITS ---
STUDY: X-RAY CHEST REASON FOR EXAM: Male, 66 years old. Shortness of breath/dyspnea. TECHNIQUE: PA and lateral views of the chest. COMPARISON: Comparison is made with prior study dated August 16, 2017. FINDINGS: EKG electrodes are seen. Small right pleural effusion with underlying infiltration and/or atelectasis. This has progressed as compared to prior study. Persistent blunting of the posterior left costophrenic angle. Normal size heart. A left-sided ICD is seen. Normal mediastinum and lee. Normal visualized pulmonary arteries. There is atherosclerotic calcification of the aortic arch with tortuosity. There are degenerative changes of the visualized thoracic spine. Normal visualized ribs, clavicles, and shoulders. There is no demonstrated abnormality of the visualized soft tissue structures of the upper abdomen. RAD/Chest PA and Lateral IMPRESSION: Increasing right pleural effusion with right basilar atelectasis and/or infiltration. Electronically Signed: Tra Myrick MD at 14:32 EDT Tel [phone], Service support ,
[2017-12-01] MEDS: Furosemide 100 MG/10 ML Vial 60 MG IV (13:46)
[2017-12-01 13:56] LABS: Absolute Lymphocyte Count 0.51 X10^3/ul (0.83-4.51); Absolute Neutrophil Count 3.2 X10^3/uL (2.0-7.7); Basophil# 0.01 X10^3/uL; Basophil% 0.2 % (0-1); Eosinophil# 0.01 X10^3/uL; Eosinophils% 0.2 % (0-5); Hematocrit 26.5 % (40-54); Hemoglobin 6.9 g/dl (13.0-16.5); Lymphocyte # 0.51 X10^3/ul (4.0); Lymphocyte % 12.4 % (19-41); Mean Corpuscular Volume 76.8 fL (80-94); Mean Platelet Vol. 9.7 fl (6.2-12.0); Monocyte# 0.43 X10^3/uL; Monocyte% 10.4 % (0-10); Neutrophil # 3.16 X10^3/uL (2.7-7.7); Neutrophil % 76.8 % (47-70); Platelet Count 170 K/mm3 (150-450); RBC Distribution Width SD 51.1 fl (35.1-43.9); Red Blood Count 3.45 M/mm3 (4.6-6.2); White Blood Count 4.1 K/mm3 (4.4-11.0)
[2017-12-01 14:00] LABS: Differential Indicated SCAN CRITERIA MET; POSITIVE COUNT NO; POSITIVE DIFFERENTIAL YES; POSITIVE MORPHOLOGY NO
[2017-12-01 14:14] LABS: Anion Gap 5 (5-15); BUN 58 mg/dL (7-18); BUN/Creat Ratio 25.3 RATIO (10-20); Calcium,Total 8.9 mg/dL (8.5-10.1); Chloride 94 mmol/L (98-107); Creatinine, Serum 2.29 mg/dL (0.70-1.30); EST Glomerular Filtration Rate 30 mL/min (>60); Est Glom Filt Rate - Afr Amer 37 mL/min (>60); Estimated Creatinine Clearance 28.86 ml/min; Glucose 92 mg/dL (74-106); Potassium 3.1 mmol/L (3.5-5.1); Sodium Level 140 mmol/L (136-145)
[2017-12-01 14:21] LABS: Anisocytosis 1+; Hypochromasia 3+; Microcytosis 1+; Platelet Estimate ADEQUATE (ADEQ)
--- NOTE | 2017-12-01 15:25 | ED.VIS.GEN ---
History of Present Illness Chief Complaint: Edema Informant: Patient, Family Onset: Days - 3-4 Context: Gradual Onset Timing: Continuous Quality: Swollen Location: both legs and lower abdomen Current Severity: Severe Maximum Severity: Severe Worsened by: nothing Relieved by: nothing despite taking his Lasix Associated Symptoms: CAVAZOS, orthopnea Narrative: Patient states he has been having significant dyspnea with a very light exertion. Denies any chest discomfort. He states his legs feel very heavy and they prevent him from walking very far as well. He is feeling fatigued and very weak. He has a history of ischemic cardiomyopathy, as well as chronic kidney disease. He states that he has been taking his Lasix and urinating but getting more and more swollen. - Past Medical History (1) History of stent insertion of renal artery Status: Chronic (2) Anemia Status: Chronic (3) Coronary artery disease Status: Chronic (4) Peripheral arterial occlusive disease Status: Chronic (5) Pleural effusion Status: Chronic (6) Ischemic cardiomyopathy Status: Chronic Comment: EF 20% on 10/27/16 (7) Pulmonary hypertension Status: Chronic (8) Atrial fibrillation Status: Chronic (9) Hyperlipemia Status: Chronic (10) COPD (chronic obstructive pulmonary disease) Status: Chronic Comment: mild. no chronic medications (11) Hypertension Status: Chronic (12) BPH (benign prostatic hypertrophy) Status: Chronic (13) Hypothyroidism Status: Chronic (14) AICD (automatic cardioverter/defibrillator) present Status: Chronic (15) Pacemaker Status: Chronic (16) Diverticulosis Status: Chronic (17) Left renal artery stenosis Status: Chronic Comment: Stent done in February (18) History of PTCA Status: Chronic Past Medical History - Allergies and Home Meds Allergies/Adverse Reactions: Allergies No Known Allergies Allergy (Verified 12/01/17 11:52) Home Medications: Home Medications Medication Instructions Recorded Albuterol IH (ProAir) [Proair Hfa 1 - 2 puff INHALATION Q4H PRN PRN 12/01/17 (SP)Vent Pts] Amiodarone HCl [Amiodarone HCl] 200 mg PO DAILY 12/01/17 Aspirin E.C. [Ecotrin] 81 mg PO DAILY@0800 12/01/17 Budesonide/Formoterol 160/4.5 1 puff INHALATION BID 12/01/17 [Symbicort 160/4.5 Mcg Inhaler (SP)] Carvedilol [Carvedilol] 25 mg PO BID 12/01/17 Ezetimibe [Zetia] 10 mg PO DAILY 12/01/17 Fenofibrate Nanocrystallized 145 mg PO DAILY 12/01/17 [Fenofibrate] Furosemide [Furosemide] 120 mg PO DAILY 12/01/17 Isosorbide Dinitrate [Isosorbide 5 mg PO BID 12/01/17 Dinitrate] Levothyroxine Sodium 112 mcg PO DAILY 12/01/17 [Levothyroxine Sodium] Metolazone [Zaroxolyn] 2.5 mg PO TUTH 12/01/17 Potassium Chloride [K-Dur] 10 meq PO BID 12/01/17 Rosuvastatin Calcium [Crestor] 40 mg PO QHS 12/01/17 Tamsulosin HCl [Flomax] 0.4 mg PO DAILY 12/01/17 Tiotropium [place] [Spiriva 2 puff INHALATION BID 12/01/17 Respimat] Warfarin Sodium [Warfarin Sodium] 3 mg PO DAILY 12/01/17 hydrALAZINE [Apresoline] 25 mg PO BID 12/01/17 Primary Care Physician: Tyrone Bhakta [Primary Care Provider] - Surgical History: angioplasty - With stent, 3 times, cataract, pacemaker implantation - AICD, - - Aortobifemoral grafting, left renal artery stent Smoking Status: Former smoker - Family History Maternal Family History: Reports: Heart Disease Paternal Family History: Reports: Heart Disease, Pulmonary Disease - Black lung Review of Systems General: Reports: Malaise - fatigue. Denies: Chills, Fever, Sweats Eyes: Denies: Visual changes - bilaterally, Diplopia ENT: Denies: Rhinorrhea, Sore throat Cardiovascular: Denies: Chest pain, Palpitations Respiratory: Reports: Dyspnea, Dyspnea on exertion, Orthopnea. Denies: Cough, Paroxysmal nocturnal dyspnea Gastrointestinal: Denies: Abdominal pain, Nausea, Vomiting, Diarrhea, Melena, Hematochezia Genitourinary: Denies: Dysuria, Hematuria, Frequency Musculoskeletal: Reports: Swelling, Extremity Pain - tight due to the swelling Skin: Denies: Rash, Wounds Neurological: Denies: Headache, Weakness, Numbness Psych: Denies: Depression, Suicidal thoughts Endocrine: Denies: Polyuria, Polydipsia Hematologic: Reports: Easy bruising, Easy bleeding Allergy: Denies: Swelling of the mouth, Swelling of the tongue Physical Exam Vital Signs/Narrative: Vital Signs Temp Pulse Resp BP Pulse Ox 12/01/17 15:20 65 16 120/70 100 12/01/17 13:17 62 16 121/66 H 100 12/01/17 11:50 97.1 F L 82 22 H 88/59 L 99 Inital Vital Signs reviewed: Yes General: Well nourished, Well developed, - - nad Head: Normocephalic, Atraumatic Eyes: Perrl, EOMI ENT: Moist mucous membranes, No rhinorrhea Neck: Supple, Nontender, - - + JVD Cardiovascular: Regular rate, Regular rhythm, No murmurs, Normal S2, - - Split S1 Respiratory: No distress, Chest nontender, Wheezing, Diminished - throughout Abdomen: Soft, Nontender, Nondistended, Normal bowel sounds Back: Nontender, Normal Inspection Extremities: Nontender - 4+ BLE, symmetric, and into lower 1/2 of abdominal wall, Edema - 4+ BLE and into lower 1/2 of abdominal wall Skin: Normal color, No rash Neurological: Alert, Oriented x3, Cranial nerves II-XII grossly intact, Normal Strength - relatively weaker in BLE, likely due to weight of legs w/ edema c/w BUE, Normal Sensation Psychological: Normal affect Diagnostic/Tx/Re-eval Impressions Chest X-Ray 12/01/17 13:29 IMPRESSION: Increasing right pleural effusion with right basilar atelectasis and/or infiltration. Electronically Signed: Tra Myrick MD at 14:32 EDT Tel [phone], Service support , 12/01/17 13:29 Chest PA and Lateral [RAD] Stat Laboratory Results 12/01/17 12/01/17 Range/Units 13:40 13:40 WBC 4.1 L (4.4-11.0) K/mm3 RBC 3.45 L (4.6-6.2) M/mm3 Hgb 6.9 L (13.0-16.5) g/dl Hct 26.5 L (40-54) % MCV 76.8 L (80-94) fL MCH 20.0 L (27.0-32.0) pg MCHC 26.0 L (32-36) g/gl RDW 19.0 H (11.6-14.6) % RDW Differential 51.1 H (35.1-43.9) fl Plt Count 170 (150-450) K/mm3 MPV 9.7 (6.2-12.0) fl Immature Gran % (Auto) 0.000 (0.0-0.9) % Neut % (Auto) 76.8 H (47-70) % Lymph % (Auto) 12.4 L (19-41) % [place] % (Auto) 10.4 H (0-10) % Eos % (Auto) 0.2 (0-5) % Baso % (Auto) 0.2 (0-1) % Absolute Neuts (auto) 3.2 (2.0-7.7) X10^3/uL Absolute Lymphs (auto) 0.51 L (0.83-4.51) X10^3/ul Total Counted Not Reportable Platelet Estimate ADEQUATE (ADEQ) Hypochromasia 3+ Anisocytosis 1+ Microcytosis 1+ Sodium 140 (136-145) mmol/L Potassium 3.1 L (3.5-5.1) mmol/L Chloride 94 L (98-107) mmol/L Carbon Dioxide 41.0 H (21.0-32.0) mmol/L Anion Gap 5 (5-15) BUN 58 H (7-18) mg/dL Creatinine 2.29 H (0.70-1.30) mg/dL Estim Creat Clear Calc 28.86 ml/min Est GFR (MDRD) Af Amer 37 L (>60) mL/min Est GFR (MDRD) Non-Af 30 L (>60) mL/min BUN/Creatinine Ratio 25.3 H (10-20) RATIO Glucose 92 (74-106) mg/dL Calcium 8.9 (8.5-10.1) mg/dL Troponin I 0.026 (<0.045) ng/mL - Rhythm Strip Rhythm Strip: paced Rate: 75 Ectopy: PVC(s) - EKG 1 Interpretation: Atrial Fibrillation - w/ ventricular pace and capture at rate of 67, LBBB pattern. no acute injury. - Medical Decision Making Given IV Lasix 60 mg, he did urinate several times with that. However with his worsening effusion, peripheral anasarca, and worsening anemia, I think he will benefit from admission to the hospital. Discussed with Dr. Augustin. Patient is already feeling a little better with regards to his breathing, however he has not exerted himself yet and he had significant dyspnea with very little exertion at home. Will admit PCU. ED Disposition - Plan for ED Patient: Disposition: Acute Care Hospital [facility] Chief Complaint: Edema Diagnosis: Anasarca, Anemia, Acute kidney injury on CKD stage III, Acute exacerbation of CHF (congestive heart failure)
--- NOTE | 2017-12-01 15:36 | NURSING ---
DR MARTINEZ FOR DR LOFTON
--- NOTE | 2017-12-01 15:47 | NURSING ---
118 CHF EXAC JUAN
--- NOTE | 2017-12-01 16:18 | HP.PCM_ITS ---
Problem List (1) Acute exacerbation of CHF (congestive heart failure) Status: Acute (2) Acute kidney injury on CKD stage III Status: Acute (3) Acute kidney injury superimposed on chronic kidney disease Status: Acute (4) Acute on chronic combined severe HF Status: Acute (5) Acute on chronic respiratory failure with hypoxia and hypercapnia Status: Resolved (6) Acute systolic congestive heart failure Status: Acute (7) Anasarca Status: Acute (8) CHF (congestive heart failure) Status: Acute (9) [employer] (current) use of anticoagulants Status: Chronic (10) Warfarin-induced coagulopathy Status: Chronic (11) AICD (automatic cardioverter/defibrillator) present Status: Chronic (12) Acute cor pulmonale Status: Chronic (13) Anemia Status: Chronic (14) Atrial fibrillation Status: Chronic (15) BPH (benign prostatic hypertrophy) Status: Chronic (16) Bilateral atelectasis Status: Chronic (17) COPD (chronic obstructive pulmonary disease) Status: Chronic Comment: mild. no chronic medications (18) Chronic anticoagulation Status: Chronic Comment: On warfarin (19) Coronary artery disease Status: Chronic (20) Diverticulosis Status: Chronic (21) Former smoker, stopped smoking in distant past Status: Chronic Comment: Quit in 1999 (22) History of PTCA Status: Chronic (23) History of stent insertion of renal artery Status: Chronic (24) Hyperlipemia Status: Chronic (25) Hypertension Status: Chronic (26) Hypothyroidism Status: Chronic (27) Ischemic cardiomyopathy Status: Chronic Comment: EF 20% on 10/27/16 (28) Left renal artery stenosis Status: Chronic Comment: Stent done in February (29) Pacemaker Status: Chronic (30) Peripheral arterial occlusive disease Status: Chronic (31) Pleural effusion Status: Chronic (32) Pulmonary hypertension Status: Chronic (33) Respiratory failure with hypoxia and hypercapnia Status: Chronic (34) Urine retention Status: Chronic History of Present Illness Date of Admission: 12/01/17 Chief Complaint: Bilateral Lower extremity edema The patient is a 66 year old M with multiple comorbidities including chronic systolic systolic heart failure with ischemic cardiomyopathy, EF 20%, coronary artery disease status post 3 stents came to ER with progressive worsening of bilateral lower extremity edema and mild shortness of breath on exertion. Patient denies chest pain, PND although he sleeps in prop-up position. Patient was last admitted on August 13 -30th, 2018 for acute on chronic combined severe heart failure and acute kidney injury on CKD, for similar condition Patient is on Lasix 60 mg twice daily and follows Dr. Mcgregor and Dr. Tavarez Chest x-ray shows right pleural effusion with right basilar atelectasis. Patient also has history of COPD and is on 3 L of home oxygen [] Past Medical History Past Medical History (Chronic Problems): Chronic Problems Warfarin-induced coagulopathy (Chronic) FPC (current) use of anticoagulants (Chronic) History of stent insertion of renal artery (Chronic) Anemia (Chronic) Bilateral atelectasis (Chronic) Respiratory failure with hypoxia and hypercapnia (Chronic) Coronary artery disease (Chronic) Peripheral arterial occlusive disease (Chronic) Pleural effusion (Chronic) Acute cor pulmonale (Chronic) Ischemic cardiomyopathy (Chronic) EF 20% on 10/27/16 Chronic anticoagulation (Chronic) On warfarin Pulmonary hypertension (Chronic) Atrial fibrillation (Chronic) Hyperlipemia (Chronic) COPD (chronic obstructive pulmonary disease) (Chronic) mild. no chronic medications Hypertension (Chronic) Urine retention (Chronic) BPH (benign prostatic hypertrophy) (Chronic) Hypothyroidism (Chronic) Former smoker, stopped smoking in distant past (Chronic) Quit in 1999 AICD (automatic cardioverter/defibrillator) present (Chronic) Pacemaker (Chronic) Diverticulosis (Chronic) Left renal artery stenosis (Chronic) Stent done in February History of PTCA (Chronic) Allergies No Known Allergies Allergy (Verified 12/01/17 11:52) Home Medications: Ambulatory Orders Medication Instructions Recorded Albuterol IH (ProAir) [Proair Hfa 1 - 2 puff INHALATION Q4H PRN PRN 12/01/17 (SP)Vent Pts] Amiodarone HCl [Amiodarone HCl] 200 mg PO DAILY 12/01/17 Aspirin E.C. [Ecotrin] 81 mg PO DAILY@0800 12/01/17 Budesonide/Formoterol 160/4.5 1 puff INHALATION BID 12/01/17 [Symbicort 160/4.5 Mcg Inhaler (SP)] Carvedilol [Carvedilol] 25 mg PO BID 12/01/17 Ezetimibe [Zetia] 10 mg PO DAILY 12/01/17 Fenofibrate Nanocrystallized 145 mg PO DAILY 12/01/17 [Fenofibrate] Furosemide [Furosemide] 120 mg PO DAILY 12/01/17 Isosorbide Dinitrate [Isosorbide 5 mg PO BID 12/01/17 Dinitrate] Levothyroxine Sodium 112 mcg PO DAILY 12/01/17 [Levothyroxine Sodium] Metolazone [Zaroxolyn] 2.5 mg PO TUTH 12/01/17 Potassium Chloride [K-Dur] 10 meq PO BID 12/01/17 Rosuvastatin Calcium [Crestor] 40 mg PO QHS 12/01/17 Tamsulosin HCl [Flomax] 0.4 mg PO DAILY 12/01/17 Tiotropium [place] [Spiriva 2 puff INHALATION BID 12/01/17 Respimat] Warfarin Sodium [Warfarin Sodium] 3 mg PO DAILY 12/01/17 hydrALAZINE [Apresoline] 25 mg PO BID 12/01/17 Surgical History: angioplasty - With stent, 3 times, cataract, pacemaker implantation - AICD, - - Aortobifemoral grafting, left renal artery stent Smoking Status: Former smoker - *Family History Maternal History Items: Heart Disease Paternal History Items: Heart Disease, Pulmonary Disease - Black lung Review of Systems Constitutional: Reports: Malaise, Weakness, Fatigue. Denies: Chills, Fever, Weight Change HEENT: Denies: Head Aches, Sinus Congestion, Sinus Drainage Cardiovascular: Reports: Edema, Orthopnea. Denies: Chest Pain, Palpitations, Paroxysmal Noc. Dyspnea Respiratory: Reports: Cough - Chronic cough, no change, Shortness of breath upon exertion. Denies: Shortness of breath at rest, Sputum production Gastrointestinal: Denies: Abdominal Pain, Nausea, Vomiting Genitourinary: Denies: Dysuria Musculoskeletal: Reports: Joint Pain. Denies: Joint Tenderness Skin: Reports: Skin Changes - Venous congestion from lower extremity edema. Denies: Rash, Wounds Neurological: Denies: Numbness, Tingling, Focal weakness Psychiatric: Denies: Anxiety, Depression, Homicidal Ideations, Suicidal Ideations Hematologic/ Lymphatic: Denies: Easy Bruising, Easy Bleeding VTE Information - Inpt Only VTE Present on Admission: No VTE Mechan Device Prophylaxis: Knee High ABBIE Hose VTE Pharm Prophylaxis ordered?: No Reason prophylaxis not ordered:: Procedure Not Indicated - On Coumadin - Physical Exam General: Alert, Oriented x3, Cooperative HEENT: Atraumatic, PERRLA, EOMI, Normocephalic Oral: Dry Mucosa Neck: Supple, No JVD, Negative Carotid Bruits Lungs: Diminished - Air entry diminished in both lungs, right worse than left. Right moderate pleural effusion., Rhonchi, Short of Breath Cardiovascular: Regular rate, No murmurs Abdomen: Bowel Sounds Present, Soft, Non Tender, Distended, - - Shifting dullness suggestive of mild ascites Extremities: Capillary Refill Less than 3 Seconds, Edema Skin: No rashes, No breakdown Musculoskeletal: No Tenderness to Palpation of Joints or Extremities, Arthritic Changes Neurological: Cranial nerves II-XII grossly intact, Neuro grossly intact Psych/Mental Status: Normal Affect, Appropriate Vital Signs Temp Pulse Resp BP Pulse Ox 97.1 F L 64 16 118/57 L 99 12/01/17 11:50 12/01/17 15:44 12/01/17 15:44 12/01/17 15:44 12/01/17 15:44 Assessment/Plan The patient is a 66 year old M with multiple comorbidities including chronic systolic systolic heart failure with ischemic cardiomyopathy, EF 20%, coronary artery disease status post 3 stents came to ER with progressive worsening of bilateral lower extremity edema and mild shortness of breath on exertion. Patient denies chest pain, PND although he sleeps in prop-up position. 2D echo in October 2016 shows EF 20% with akinetic apex and severely hypokinetic anterior apex and rest of the wall hypokinetic, LA severely enlarged, RA mildly enlarged , 1-2+ MR, mild papillary muscle dysfunction of mitral valve. Mild TR, RVSP of 55 mmHg. Aortic sclerosis no stenosis. Trivial pericardial effusion. Status post AICD Patient was last admitted on August 13 -2017 for acute on chronic combined severe heart failure and acute kidney injury on CKD, for similar condition Patient is on Lasix 60 mg twice daily and follows Dr. Mcgregor and Dr. Tavarez Chest x-ray shows right pleural effusion with right basilar atelectasis. Patient also has history of COPD and is on 3 L of home oxygen. 1. Acute on chronic combined severe systolic and diastolic heart failure DUE to ischemic cardiomyopathy status post AICD; exact precipitating factor unclear : Patient is being admitted on the cardiac floor, PCU. On IV furosemide drip, 10 mg/h. Agee catheter insertion. On aspirin, beta-maximiliano, low-dose Isordil 5 mg 3 times daily and hydralazine. Cycle cardiac enzymes. Twelve-lead EKG shows A. fib at [address]-T changes. Patient had echo as mentioned above. If needed, can consult Dr. Mcgregor. 2. chronic respiratory failure due to multiple comorbidities, predominantly chronic heart failure associated with bilateral pleural effusion, right more than left and bilateral atelectasis COPD: On oxygen through nasal cannula to keep pulse ox about 90%. If needed can put on BiPAP for respiratory support. Patient baseline is 3 L/min and was on 4 L in the ER. 3. Respiratory conditions: COPD, bilateral pleural effusion, right more than left and bilateral atelectasis: Repeat chest x-ray PA and lateral tomorrow am. Patient is not acutely short of breath and I do not think he needs thoracocentesis at this time. On Lasix drip 4. Acute kidney injury on CKD stage III: Currently, creatinine is 2.29, BUN 58. Last time he was discharged with creatinine about 1.65 with estimated GFR about 40 mL/min, that his baseline. will consult [facility] to further manage Lasix drip, kidney function as I suspect that his creatinine would further increase on Lasix drip. 5. Hypokalemia due to AKA on CKD stage III. On potassium replacement 6. Coronary artery status post 3 stents: On medical management for now. Rest as mentioned above. 7. Chronic atrial fibrillation on Coumadin: Rate is controlled. INR is pending 8. Anasarca: Patient has ascites, bilateral pleural effusion and bilateral lower extremity due to severe heart failure. 9.. Multiple comorbidities includes hypertension, severe pulmonary hypertension , peripheral arterial occlusive disease status post aortic bypass graft, dyslipidemia, BPH with urinary retention, possible bladder outlet obstruction left renal artery stenosis status post stenting February 2008, morbid obesity: This multiple comorbidities complicates the present care. PT and OT ordered. Home medication reconciliation done. Laboratory Results 12/01/17 13:40: WBC 4.1 L, RBC 3.45 L, Hgb 6.9 L, Hct 26.5 L, MCV 76.8 L, MCH 20.0 L, MCHC 26.0 L, RDW 19.0 H, RDW Differential 51.1 H, Plt Count 170, MPV 9.7 , Immature Gran % (Auto) 0.000, Neut % (Auto) 76.8 H, Lymph % (Auto) 12.4 L, [place] % (Auto) 10.4 H, Eos % (Auto) 0.2, Baso % (Auto) 0.2, Absolute Neuts (auto ) 3.2, Absolute Lymphs (auto) 0.51 L, Total Counted Not Reportable, Platelet Estimate ADEQUATE, Hypochromasia 3+, Anisocytosis 1+, Microcytosis 1+ 12/01/17 13:40: Sodium 140, Potassium 3.1 L, Chloride 94 L, Carbon Dioxide 41.0 H, Anion Gap 5, BUN 58 H, Creatinine 2.29 H, Estim Creat Clear Calc 28.86, Est GFR (MDRD) Af Amer 37 L, Est GFR (MDRD) Non-Af 30 L, BUN/Creatinine Ratio 25.3 H , Glucose 92, Calcium 8.9, Troponin I 0.026 Clinical Impression(s) from Imaging Studies Chest X-Ray 12/01/17 13:29 IMPRESSION: Increasing right pleural effusion with right basilar atelectasis and/or infiltration. Code Visit Inpatient E&M: 70889 Init Hosp L3
[2017-12-01 17:26] LABS: Bedside Glucose 90 mg/dL (70-110)
[2017-12-01 17:32] LABS: International Normalized Ratio 2.8; Magnesium 2.4 mg/dL (1.6-2.6); Prothrombin Time (Protime)PT. 29.4 SECONDS (11.7-14.9)
[2017-12-01] MEDS: Budesonide Respules 0.5 MG/2 ML AMPUL.NEB. INHALATION (19:24)
[2017-12-01] MEDS: Albuterol 2.5 MG/3 ML VIAL.NEB. INHALATION (19:24)
--- NOTE | 2017-12-01 19:39 | NURSING ---
Agee catheter discussed with patient. Informed him that it is ordered to keep close eye on output as he is on Lasix gtt. Pt refuses at this time and states he will just use urinal.
[2017-12-01] MEDS: Atorvastatin Calcium 80 MG Tablet PO (21:37)
[2017-12-01] MEDS: Fenofibrate 145 MG Tablet PO (21:46)
[2017-12-01] MEDS: hydrALAZINE 25 MG Tablet PO (23:00)
[2017-12-01] MEDS: Isosorbide DN 10 MG Tablet 5 MG PO (23:05)
[2017-12-01] MEDS: Carvedilol 25 MG Tablet PO (23:05)
[2017-12-02] VITALS (21 sets, daily range): BP systolic 88–130; BP diastolic 47–82; PULSE 63–86; RESP 16–20; TEMP 36.4–37.2; O2SAT 96–98
--- NOTE | 2017-12-02 03:00 | NURSING ---
Pt. BP low at this time. 88/47. Pt. had PM BP meds as ordered by Dr. Kwong to give. Pt. asymptomatic. Resting in chair. Blood transfusion finishing. Will monitor pt.
[2017-12-02 05:12] LABS: Absolute Lymphocyte Count 0.61 X10^3/ul (0.83-4.51); Absolute Neutrophil Count 4.3 X10^3/uL (2.0-7.7); Basophil# 0.01 X10^3/uL; Basophil% 0.2 % (0-1); Eosinophil# 0.01 X10^3/uL; Eosinophils% 0.2 % (0-5); Hematocrit 28.8 % (40-54); Hemoglobin 7.6 g/dl (13.0-16.5); Lymphocyte # 0.61 X10^3/ul (4.0); Lymphocyte % 11.3 % (19-41); Mean Corp Hgb Conc 26.4 g/gl (32-36); Mean Corpuscular Hgb 20.4 pg (27.0-32.0); Mean Corpuscular Volume 77.4 fL (80-94); Mean Platelet Vol. 9.6 fl (6.2-12.0); Monocyte# 0.54 X10^3/uL; Neutrophil # 4.25 X10^3/uL (2.7-7.7); Neutrophil % 78.3 % (47-70); Platelet Count 147 K/mm3 (150-450); Red Blood Count 3.72 M/mm3 (4.6-6.2); White Blood Count 5.4 K/mm3 (4.4-11.0)
[2017-12-02 05:14] LABS: POSITIVE COUNT NO; POSITIVE DIFFERENTIAL NO; POSITIVE MORPHOLOGY NO
[2017-12-02 05:28] LABS: Anion Gap 5 (5-15); BUN 57 mg/dL (7-18); BUN/Creat Ratio 26.6 RATIO (10-20); Chloride 95 mmol/L (98-107); Cholesterol 98 mg/dL (200); Creatinine, Serum 2.14 mg/dL (0.70-1.30); EST Glomerular Filtration Rate 33 mL/min (>60); Est Glom Filt Rate - Afr Amer 40 mL/min (>60); Estimated Creatinine Clearance 30.89 ml/min; Glucose 88 mg/dL (74-106); High Density Lipoprotein 22 mg/dL; Magnesium 2.4 mg/dL (1.6-2.6); Potassium 3.2 mmol/L (3.5-5.1); Sodium Level 143 mmol/L (136-145); Thyroid Stim Hormone (TSH) 3.26 uIU/mL (0.358-3.74); Triglycerides 120 mg/dL; Very Low Density Lipoprotein 24 mg/dL (5-40)
--- NOTE | 2017-12-02 05:55 | RAD_ITS ---
STUDY: X-RAY CHEST REASON FOR EXAM: Male, 66 years old. CHF. TECHNIQUE: PA and lateral views of the chest. COMPARISON: Comparison is made with prior study dated December 01, 2017. FINDINGS: EKG electrodes are seen. Slight increase in the right pleural effusion with underlying infiltration and/or atelectasis. New atelectasis and/or early infiltrate at the left lung base. Blunting of left costophrenic angle. Stable vascular congestion. There is mild cardiac enlargement. A left-sided ICD is seen. Normal mediastinum and lee. Normal visualized pulmonary arteries. There is atherosclerotic calcification of the aortic arch with tortuosity. There are diffuse degenerative changes of the visualized thoracic spine. Normal visualized ribs, clavicles, and shoulders. There is no demonstrated abnormality of the visualized soft tissue structures of the upper abdomen. RAD/Chest PA and Lateral IMPRESSION: Slight increase in the right pleural effusion with underlying atelectasis. New atelectasis and/or infiltrate at the left lung base. Stable vascular congestion. Electronically Signed: Tra Myrick MD at 8:09 EDT Tel [phone], Service support ,
[2017-12-02] MEDS: Levothyroxine 112 MCG Tablet PO (06:29)
[2017-12-02] MEDS: Isosorbide DN 10 MG Tablet 5 MG PO ×3 (06:29→22:25)
--- NOTE | 2017-12-02 06:35 | NURSING ---
Pt. leaving room to go to Radiology for CXR.
[2017-12-02] MEDS: Albuterol 2.5 MG/3 ML VIAL.NEB. INHALATION ×3 (07:16→19:05)
[2017-12-02] MEDS: Budesonide Respules 0.5 MG/2 ML AMPUL.NEB. INHALATION ×2 (07:17→19:05)
[2017-12-02] MEDS: Tamsulosin HCl 0.4 MG Capsule PO (08:26)
[2017-12-02] MEDS: Aspirin E.C. 81 MG Tablet PO (08:26)
[2017-12-02] MEDS: Polyethylene Glycol 3350 17 GM PACKET PO (10:07)
[2017-12-02] MEDS: Amiodarone 200 MG Tablet PO (10:08)
[2017-12-02] MEDS: Ezetimibe 10 MG Tablet PO (10:08)
[2017-12-02] MEDS: Carvedilol 25 MG Tablet PO ×2 (10:12→22:27)
--- NOTE | 2017-12-02 10:53 | CON.PCM_ITS ---
Problem List (1) CHF (congestive heart failure) Status: Acute (2) Warfarin-induced coagulopathy Status: Chronic (3) Anasarca Status: Acute (4) Acute on chronic combined severe HF Status: Acute (5) Acute systolic congestive heart failure Status: Acute (6) Coronary artery disease Status: Chronic (7) Ischemic cardiomyopathy Status: Chronic Comment: EF 20% on 10/27/16 (8) Atrial fibrillation Status: Chronic (9) Hyperlipemia Status: Chronic (10) AICD (automatic cardioverter/defibrillator) present Status: Chronic (11) Pacemaker Status: Chronic (12) History of PTCA Status: Chronic Reason for Consult Date of Consultation: 12/02/17 History of Present Illness: Mister Avery is a very pleasant 66-year-old nondiabetic gentleman with ischemic cardiomyopathy, coronary artery disease, status post AICD placement, also asymptomatic chronic persistent atrial fibrillation previously on Coumadin therapy. The patient originally presented to [facility] ER on 12/27/13 after he experienced anginal like chest pain. Patient underwent left heart catheterization which demonstrated critical in-stent restenosis of his left circumflex artery. The catheterization was done via his left groin given the severe peripheral vascular disease on the right side status post aortofemoral bypass. The patient underwent successful cutting balloon and angioplasty and drug-eluting stenting of his left circumflex with a 3.0X 20 Promus stentin December 2013, postdilated to 3.5 mm. He was found to be in sinus rhythm so his Coumadin was discontinued in place of aspirin and Plavix. In addition given his ischemic cardiomyopathy and predilection for atrial fibrillation, amiodarone therapy was initiated. Patient then returned in June 2016 underwent repeat catheterization which demonstrated widely patent LAD and left circumflex stents and a chronically occluded right coronary artery with an EF around 50-20% and moderately elevated LVEDP of 25 mmHg. on a routine pacemaker follow-up,patient was found to have bursts of asymptomatic atrial fibrillation in August 2014. At that time his Plavix was discontinued and his Coumadin was resumed. Patient denies any chest pain or angina, or palpitations. He is taking and tolerating his medicines well. He is completed cardiac rehab and exercises regularly at [facility]. Patient had a pacer interrogation around 9 months ago, indicating paroxysmal atrial fibrillation interspersed with sinus rhythm. He is essentially now on permanent atrial fibrillation and continues on lifelong Coumadin given his Chadds/Vasc score of 2. On and 02/10/15 the patient was admitted for congestive heart failure symptoms and lower extremity edema. I was not consulted at that time, and a repeat echocardiogram demonstrated an EF of 20%, moderate left atrial enlargement, mild to moderate TR, and RVSP of 34 millimeters mercury. He had Aldactone started, and was subsequently discharged. He is now here in follow-up. valerie was doing well until he was readmitted in October 2016, however I was not reconsulted. He was admitted with congestive heart failure and diuresed by Dr. Hodge. EKG showed A. fib at that time, and repeat echocardiogram showed an EF of 20%, mild to moderate TR, RVSP of 55 mmHg. He is now here in follow-up. Since discharge, he continues to have dyspnea on exertion lower extremity edema , shortness of breath but no orthopnea. He denies any AICD discharges. He is compliant with his medications. On chronic O2 therapy at 3 L saturating 86% here in the office. Patient states that he has had approximately 10 pound weight gain over the last several months, with associated worsening dyspnea on exertion, shortness of breath but no chest pain or anginal symptoms. Patient presented with acute on chronic congestive heart failure, lower extremity edema, and responded well to IV diuretic therapy. In addition he is in chronic atrial fibrillation, and his INR is 2.8 today. Patient reports that he is compliant with his medications, compliant with his salt intake, only eats homemade soups, and does not eat fast foods. He is no longer on JUSTUS inhibitors due to his chronic renal insufficiency , and has been switched to Imdur and hydralazine. He was on Lasix 40 mg p.o. twice daily. His last echocardiogram was on 10/27/16 when he is admitted to the PCU for CHF. At that time he had an EF of 20%, severe left atrial enlargement, mild to moderate mitral insufficiency and an RVSP of at least 55 mmHg. Repeat echo is pending. [] Past Medical History Allergies/Adverse Reactions: Allergies No Known Allergies Allergy (Verified 12/01/17 11:52) Home Medications: Ambulatory Orders Medication Instructions Recorded Albuterol IH (ProAir) [Proair Hfa 1 - 2 puff INHALATION Q4H PRN PRN 12/01/17 (SP)Vent Pts] Amiodarone HCl [Amiodarone HCl] 200 mg PO DAILY 12/01/17 Aspirin E.C. [Ecotrin] 81 mg PO DAILY@0800 12/01/17 Budesonide/Formoterol 160/4.5 1 puff INHALATION BID 12/01/17 [Symbicort 160/4.5 Mcg Inhaler (SP)] Carvedilol [Carvedilol] 25 mg PO BID 12/01/17 Ezetimibe [Zetia] 10 mg PO QHS 12/01/17 Fenofibrate Nanocrystallized 145 mg PO QHS 12/01/17 [Fenofibrate] Furosemide [Furosemide] 60 mg PO BID 12/01/17 Isosorbide Dinitrate [Isosorbide 5 mg PO TID 12/01/17 Dinitrate] Levothyroxine Sodium 112 mcg PO DAILY 12/01/17 [Levothyroxine Sodium] Metolazone [Zaroxolyn] 2.5 mg PO TUTH 12/01/17 Potassium Chloride [K-Dur] 10 meq PO BID 12/01/17 Rosuvastatin Calcium [Crestor] 40 mg PO QHS 12/01/17 Tamsulosin HCl [Flomax] 0.4 mg PO DAILY 12/01/17 Tiotropium Hope [Spiriva 2 puff INHALATION BID 12/01/17 Respimat] Warfarin Sodium [Warfarin Sodium] 3 mg PO DAILY 12/01/17 hydrALAZINE [Apresoline] 25 mg PO BID 12/01/17 Past Medical History (Chronic Problems): Chronic Problems Warfarin-induced coagulopathy (Chronic) halfway (current) use of anticoagulants (Chronic) History of stent insertion of renal artery (Chronic) Anemia (Chronic) Bilateral atelectasis (Chronic) Respiratory failure with hypoxia and hypercapnia (Chronic) Coronary artery disease (Chronic) Peripheral arterial occlusive disease (Chronic) Pleural effusion (Chronic) Acute cor pulmonale (Chronic) Ischemic cardiomyopathy (Chronic) EF 20% on 10/27/16 Chronic anticoagulation (Chronic) On warfarin Pulmonary hypertension (Chronic) Atrial fibrillation (Chronic) Hyperlipemia (Chronic) COPD (chronic obstructive pulmonary disease) (Chronic) mild. no chronic medications Hypertension (Chronic) Urine retention (Chronic) BPH (benign prostatic hypertrophy) (Chronic) Hypothyroidism (Chronic) Former smoker, stopped smoking in distant past (Chronic) Quit in 1999 AICD (automatic cardioverter/defibrillator) present (Chronic) Pacemaker (Chronic) Diverticulosis (Chronic) Left renal artery stenosis (Chronic) Stent done in February History of PTCA (Chronic) Surgical History: angioplasty - With stent, 3 times, cataract, pacemaker implantation - AICD, - - Aortobifemoral grafting, left renal artery stent - *Family History Maternal History Items: Heart Disease Paternal History Items: Heart Disease, Pulmonary Disease - Black lung Smoking Status: Former smoker Tobacco Use: Cigarettes Review of Systems - Review of Systems General: Denies: Fever, Night Sweats, Fatigue Cardiovascular: Reports: Shortness of Breath, Shortness of Breath at Rest. Denies: Chest Discomfort, Orthopnea, PND, Peripheral Edema, Palpitations, Lightheadedness, Dizziness, Near Syncope, Syncope Respiratory: Denies: Cough, Sputum Production, Hemoptysis Gastrointestinal: Denies: Hematemesis, Hematochezia, Melena Genitourinary: Denies: Dysuria, Hematuria Skin: Denies: Rash Subjectve: Patient laying in bed, no acute distress. Objective: Vital Signs Temp Pulse Resp BP Pulse Ox 97.6 F L 67 20 H 115/55 L 98 12/02/17 10:04 12/02/17 10:10 12/02/17 10:04 12/02/17 10:10 12/02/17 10:04 Oxygen Flow Rate (L/min) 3 Oxygen Delivery Method Nasal Cannula Weight: 206 lb 9.17 oz Body Mass Index (BMI) 32.6 Intake and Output for Last 24 Hours 11/30/17 12/01/17 12/02/17 23:59 23:59 23:59 Intake Total 326 / 326 506 / 506 Output Total 1500 / 2100 925 / 925 Balance -1174 / -1774 -419 / -419 General: Awake, Alert, Oriented x 3 HEENT: PERRL, EOMI, Sclera Non Icteric Neck: Supple, Good ROM, No Lymph Node Enlargement Lungs: Diminished Aubrey Bases Cardiovascular: Irregular Rhythm, Normal S1, Normal S2, No Rubs, No Gallops 12/01/17 16:56: PT 29.4 H, INR 2.8 12/01/17 16:56: Troponin I 0.031 12/01/17 16:56: Magnesium 2.4 12/01/17 20:30: Troponin I 0.035 12/02/17 04:16: WBC 5.4, RBC 3.72 L, Hgb 7.6 L, Hct 28.8 L, MCV 77.4 L, MCH 20.4 L, MCHC 26.4 L, RDW 19.0 H, RDW Differential 54.0 H, Plt Count 147 L, MPV 9.6, Immature Gran % (Auto) 0.000, Neut % (Auto) 78.3 H, Lymph % (Auto) 11.3 L, [place] % (Auto) 10.0, Eos % (Auto) 0.2, Baso % (Auto) 0.2, Absolute Neuts (auto) 4.3, Total Counted Not Reportable 12/02/17 04:16: Sodium 143, Potassium 3.2 L, Chloride 95 L, Carbon Dioxide 43.0 H, Anion Gap 5, BUN 57 H, Creatinine 2.14 H, Est GFR (MDRD) Af Amer 40 L, Est GFR (MDRD) Non-Af 33 L, BUN/Creatinine Ratio 26.6 H, Glucose 88, Calcium 9.0, Magnesium 2.4, Triglycerides 120, Cholesterol 98, LDL Cholesterol 52, VLDL Cholesterol 24, HDL Cholesterol 22 L 12/02/17 04:16: Hgb Cancelled, Hct Cancelled Rhythm: EKG: Atrial fibrillation with controlled ventricular response and paced rhythms. Nonspecific ST and T-wave changes. ECHO: Stress Test: Cardiac Cath: PCI: CT Surgery: Holter monitor: EPS: PPM: CXR: Chest CT Scan: Assessment/Plan 1. Ischemic cardiomyopathy: The patient has acute on chronic congestive heart failure with worsening shortness of breath, dyspnea on exertion, and lower extremity edema superimposed on a proximally 10 pound weight gain over the last several months. Patient is currently on a Lasix drip, and diuresing fairly well. Recommend continuing Lasix drip with a goal of a diuresis of approximately 1.0-1.5 L negative every day until he is reached his dry weight which appears to be around 194 pounds.. We may want to consider renal consultation given his chronic renal insufficiency, and limitations of diuretic therapy and fluid removal. The patient may require hemodialysis sooner than later. I would recommend a 1500 cc fluid restriction, and continue his Coreg, Imdur, hydralazine. His amlodipine may be contributing to his lower extremity edema as well however I believe is necessary for afterload reduction at this time. In addition recommend a repeat echocardiogram to determine if he has had any worsening mitral regurgitation which may be contributing to his pulmonary hypertension and lower extremity edema. His EF at that time 1 year ago was 20% which is a known entity. Continue Justus bandage wraps to assist with venous return. 2. Coronary artery disease: No anginal symptoms at this time. Given his chronic renal insufficiency and peripheral vascular disease I would not recommend repeat catheterization at this time. Should any catheterization be required he will require access via the left groin given his severe peripheral vascular disease in the right groin access site. 3. Hyperlipidemia: Continue statin based medications. 4. Discussed with Dr. Mota. Thank you very much for the opportunity to put dissipate in the cardiac care of your patient. Consultation time took place between 830 and 9:15 AM. Code Visit Inpatient E&M: 93726 Init Hosp L3
--- NOTE | 2017-12-02 12:03 | PCM.CONS.R ---
Problem List (1) Acute kidney injury on CKD stage III Status: Acute Consultation - Renal PCP/ Referring MD: Requesting physician: [] Primary care physician: Tyrone Bhakta - History of Present Illness History of Present Illness: The patient is a 66 year old M medical history of systolic heart failure and chronic kidney disease stage III. Patient presented to my office yesterday for chronic kidney disease follow-up. I found the patient in respiratory distress, lung crackles and weight gain along with the worsening kidney function. I send the patient to the emergency room for CHF decompensation admission. Patient was admitted to PCU. Patient was started on Lasix drip at 1 mL/h. patient made 2 L of urine. Patient is feeling better today. He is back to 3 L/min nasal cannula support. His leg edema is better. Kidney function is better. ROS: 12 systems review is negative except some shortness of breath, leg edema [] - Allergies Allergies: Allergies No Known Allergies Allergy (Verified 12/01/17 11:52) - Current Medications Current Medications: Current Medications Acetaminophen (Tylenol) 650 mg PO Q6H PRN PRN PRN Reason: Mild Pain (scale 0-3)/T>100.7 Al Hydroxide/Mg Hydroxide (Mylanta Ii) 30 ml PO Q6H PRN PRN PRN Reason: Gastric Burning Albuterol Sulfate (Ventolin Aerosols) 2.5 mg INHALATION Q6HWA.RT [facility] Last Admin: 12/02/17 07:16 Dose: 2.5 mg Amiodarone HCl (Cordarone) 200 mg PO DAILY [facility] Last Admin: 12/02/17 10:08 Dose: 200 mg Aspirin (Ecotrin) 81 mg PO DAILY@0800 [facility] Last Admin: 12/02/17 08:26 Dose: 81 mg Atorvastatin Calcium (Lipitor) 80 mg PO QHS [facility] Last Admin: 12/01/17 21:37 Dose: 80 mg Bisacodyl (Dulcolax) 10 mg RECTAL DAILY PRN PRN PRN Reason: Constipation Budesonide (Pulmicort Aerosol) 0.5 mg INHALATION Q12H.RT [facility] Last Admin: 12/02/17 07:17 Dose: 0.5 mg Carvedilol (Coreg) 25 mg PO BID [facility] Last Admin: 12/02/17 10:12 Dose: 25 mg Docusate Sodium (Colace) 200 mg PO BID PRN PRN PRN Reason: Constipation Ezetimibe (Zetia) 10 mg PO DAILY [facility] Last Admin: 12/02/17 10:08 Dose: 10 mg Fenofibrate (Tricor) 145 mg PO QHS [facility] Last Admin: 12/01/17 21:46 Dose: 145 mg Hydralazine HCl (Apresoline) 25 mg PO BID [facility] Last Admin: 12/02/17 10:10 Dose: Not Given Furosemide 500 mg/ (Miscellaneous Information) 50 mls @ 1 mls/hr CONT INF .Q50H [facility] PRN Reason: 10 MG/HR Last Admin: 12/01/17 17:32 Dose: 1 mls/hr Isosorbide Dinitrate (Isordil) 5 mg PO TID [facility] Last Admin: 12/02/17 06:29 Dose: 5 mg Levothyroxine Sodium (Synthroid) 112 mcg PO DAILY@0600 [facility] Last Admin: 12/02/17 06:29 Dose: 112 mcg Morphine Sulfate () 1 - 2 mg IV Q4H PRN PRN PRN Reason: severe pain/pulm edema Ondansetron HCl (Zofran) 4 mg IV Q8H PRN PRN PRN Reason: Nausea Oxycodone HCl (Oxyir) 5 mg PO Q4H PRN PRN PRN Reason: Moderate Pain (pain scale 4-5) Polyethylene Glycol (Miralax) 17 gm PO DAILY [facility] Last Admin: 12/02/17 10:07 Dose: 17 gm Potassium Chloride (K-Dur) 40 meq PO BID [facility] Stop: 12/02/17 22:01 Last Admin: 12/02/17 10:10 Dose: 40 meq Sodium Chloride () 5 - 30 ml IV UD PRN PRN Reason: SALINE FLUSH Tamsulosin HCl (Flomax) 0.4 mg PO DAILY@0830 [facility] Last Admin: 12/02/17 08:26 Dose: 0.4 mg Zolpidem Tartrate (Ambien (Generic)) 5 mg PO QHS PRN PRN PRN Reason: INSOMNIA - Past Medical History Past Medical History (Chronic Problems): Chronic Problems Warfarin-induced coagulopathy (Chronic) [facility] (current) use of anticoagulants (Chronic) History of stent insertion of renal artery (Chronic) Anemia (Chronic) Bilateral atelectasis (Chronic) Respiratory failure with hypoxia and hypercapnia (Chronic) Coronary artery disease (Chronic) Peripheral arterial occlusive disease (Chronic) Pleural effusion (Chronic) Acute cor pulmonale (Chronic) Ischemic cardiomyopathy (Chronic) EF 20% on 10/27/16 Chronic anticoagulation (Chronic) On warfarin Pulmonary hypertension (Chronic) Atrial fibrillation (Chronic) Hyperlipemia (Chronic) COPD (chronic obstructive pulmonary disease) (Chronic) mild. no chronic medications Hypertension (Chronic) Urine retention (Chronic) BPH (benign prostatic hypertrophy) (Chronic) Hypothyroidism (Chronic) Former smoker, stopped smoking in distant past (Chronic) Quit in 1999 AICD (automatic cardioverter/defibrillator) present (Chronic) Pacemaker (Chronic) Diverticulosis (Chronic) Left renal artery stenosis (Chronic) Stent done in February History of PTCA (Chronic) - Past Surgical History Surgical History: angioplasty - With stent, 3 times, cataract, pacemaker implantation - AICD, - - Aortobifemoral grafting, left renal artery stent - Social History Smoking Status: Former smoker - Family History Maternal History Items: Heart Disease Paternal History Items: Heart Disease, Pulmonary Disease - Black lung - Physical Exam General: Alert, Oriented x3 HEENT: Atraumatic Oral: Moist Mucosa Neck: Supple, No JVD Lungs: Clear to auscultation, Normal air movement, No rhonchi Cardiovascular: Regular rate, Regular Rhythm, Normal S1, Normal S2 Abdomen: Bowel Sounds Present, Soft, Non Tender, Non-Distended Extremities: No clubbing, No cyanosis, - - 1 edema of lower extremities Skin: No rashes Musculoskeletal: No Tenderness to Palpation of Joints or Extremities Lymphatic: No Cervical, Supraclavicular, or Inguinal Adenopathy Neurological: Cranial nerves II-XII grossly intact, Neuro grossly intact Psych/Mental Status: Normal Affect Vital Signs Temp Pulse Resp BP Pulse Ox 97.6 F L 67 20 H 115/55 L 98 12/02/17 10:04 12/02/17 10:10 12/02/17 10:04 12/02/17 10:10 12/02/17 10:04 Oxygen Flow Rate (L/min) 3 Oxygen Delivery Method Nasal Cannula Weight: 93.7 kg Body Mass Index (BMI) 32.6 Intake and Output for Last 24 Hours 11/30/17 12/01/17 12/02/17 23:59 23:59 23:59 Intake Total 326 / 326 506 / 506 Output Total 1500 / 2100 925 / 925 Balance -1174 / -1774 -419 / -419 Laboratory Tests Past 24 Hrs 12/01/17 12/01/17 12/01/17 16:56 16:56 16:56 WBC RBC Hgb Hct MCV MCH MCHC RDW RDW Differential Plt Count MPV Immature Gran % (Auto) Neut % (Auto) Lymph % (Auto) [place] % (Auto) Eos % (Auto) Baso % (Auto) Absolute Neuts (auto) Absolute Lymphs (auto) Total Counted PT 29.4 H INR 2.8 Sodium Potassium Chloride Carbon Dioxide Anion Gap BUN Creatinine Estim Creat Clear Calc Est GFR (MDRD) Af Amer Est GFR (MDRD) Non-Af BUN/Creatinine Ratio Glucose Calcium Magnesium 2.4 Troponin I 0.031 Triglycerides Cholesterol LDL Cholesterol VLDL Cholesterol HDL Cholesterol TSH Blood Type Antibody Screen Crossmatch 12/01/17 12/01/17 12/02/17 20:30 20:30 04:16 WBC 5.4 RBC 3.72 L Hgb 7.6 L Hct 28.8 L MCV 77.4 L MCH 20.4 L MCHC 26.4 L RDW 19.0 H RDW Differential 54.0 H Plt Count 147 L MPV 9.6 Immature Gran % (Auto) 0.000 Neut % (Auto) 78.3 H Lymph % (Auto) 11.3 L [place] % (Auto) 10.0 Eos % (Auto) 0.2 Baso % (Auto) 0.2 Absolute Neuts (auto) 4.3 Absolute Lymphs (auto) 0.61 L Total Counted Not Reportable PT INR Sodium Potassium Chloride Carbon Dioxide Anion Gap BUN Creatinine Estim Creat Clear Calc Est GFR (MDRD) Af Amer Est GFR (MDRD) Non-Af BUN/Creatinine Ratio Glucose Calcium Magnesium Troponin I 0.035 Triglycerides Cholesterol LDL Cholesterol VLDL Cholesterol HDL Cholesterol TSH Blood Type A POSITIVE Antibody Screen NEGATIVE Crossmatch See Detail 12/02/17 12/02/17 04:16 04:16 WBC RBC Hgb Cancelled Hct Cancelled MCV MCH MCHC RDW RDW Differential Plt Count MPV Immature Gran % (Auto) Neut % (Auto) Lymph % (Auto) [place] % (Auto) Eos % (Auto) Baso % (Auto) Absolute Neuts (auto) Absolute Lymphs (auto) Total Counted PT INR Sodium 143 Potassium 3.2 L Chloride 95 L Carbon Dioxide 43.0 H Anion Gap 5 BUN 57 H Creatinine 2.14 H Estim Creat Clear Calc 30.89 Est GFR (MDRD) Af Amer 40 L Est GFR (MDRD) Non-Af 33 L BUN/Creatinine Ratio 26.6 H Glucose 88 Calcium 9.0 Magnesium 2.4 Troponin I Triglycerides 120 Cholesterol 98 LDL Cholesterol 52 VLDL Cholesterol 24 HDL Cholesterol 22 L TSH 3.26 Blood Type Antibody Screen Crossmatch POC Glucose 12/01/17 17:14 POC Glucose 90 Assessment/Plan 1-kidney injury on chronic kidney disease. Baseline creatinine around 1.7 most probably from cardiorenal syndrome and nephrosclerosis. Acute kidney injury this time is from cardiorenal syndrome type I. Creatinine is improving with diuresis. Last creatinine trend is 2.3-2.1 mg a deciliter. I agree to continue the same dose of Lasix drip now. Keep mean arterial pressure more than 65. Please avoid JUANITA inhibitor and ARB with diuresis. No need for renal replacement therapy. 2-hypokalemia: Most probably from renal loss in addition to metabolic alkalosis. I agree with the potassium chloride 40 mEq twice a day. Check magnesium level in the morning. 3-metabolic alkalosis. Most probably due to volume contraction. I will continue to monitor. If bicarb increase more than 45, I will give the patient 1 dose of acetazolamide. 4-acute hypoxemic respiratory failure due to CHF decompensation. Improved with diuresis. Continue the same dose of Lasix drip. Continue O2 support through nasal cannula. Cardiology service was consulted. 5-iron deficiency anemia. Patient presented with a hemoglobin 6.9. Patient received 1 unit of RBCs yesterday. I will start the patient on Venofer 1 g over 10 days. Thank you for the consult. I will continue to follow. Please do not hesitate to call me at my cell phone [phone] with any question. Chari Downey MD [phone]
--- NOTE | 2017-12-02 12:10 | CON.PCM_ITS ---
Problem List (1) Acute kidney injury on CKD stage III Status: Acute Consultation - Renal PCP/ Referring MD: Requesting physician: [] Primary care physician: Tyrone Bhakta - History of Present Illness History of Present Illness: The patient is a 66 year old M medical history of systolic heart failure and chronic kidney disease stage III. Patient presented to my office yesterday for chronic kidney disease follow-up. I found the patient in respiratory distress, lung crackles and weight gain along with the worsening kidney function. I send the patient to the emergency room for CHF decompensation admission. Patient was admitted to PCU. Patient was started on Lasix drip at 1 mL/h. patient made 2 L of urine. Patient is feeling better today. He is back to 3 L/ min nasal cannula support. His leg edema is better. Kidney function is better. ROS: 12 systems review is negative except some shortness of breath, leg edema [] - Allergies Allergies: Allergies No Known Allergies Allergy (Verified 12/01/17 11:52) - Current Medications Current Medications: Current Medications Acetaminophen (Tylenol) 650 mg PO Q6H PRN PRN PRN Reason: Mild Pain (scale 0-3)/T>100.7 Al Hydroxide/Mg Hydroxide (Mylanta Ii) 30 ml PO Q6H PRN PRN PRN Reason: Gastric Burning Albuterol Sulfate (Ventolin Aerosols) 2.5 mg INHALATION Q6HWA.RT [facility] Last Admin: 12/02/17 07:16 Dose: 2.5 mg Amiodarone HCl (Cordarone) 200 mg PO DAILY [facility] Last Admin: 12/02/17 10:08 Dose: 200 mg Aspirin (Ecotrin) 81 mg PO DAILY@0800 [facility] Last Admin: 12/02/17 08:26 Dose: 81 mg Atorvastatin Calcium (Lipitor) 80 mg PO QHS [facility] Last Admin: 12/01/17 21:37 Dose: 80 mg Bisacodyl (Dulcolax) 10 mg RECTAL DAILY PRN PRN PRN Reason: Constipation Budesonide (Pulmicort Aerosol) 0.5 mg INHALATION Q12H.RT [facility] Last Admin: 12/02/17 07:17 Dose: 0.5 mg Carvedilol (Coreg) 25 mg PO BID [facility] Last Admin: 12/02/17 10:12 Dose: 25 mg Docusate Sodium (Colace) 200 mg PO BID PRN PRN PRN Reason: Constipation Ezetimibe (Zetia) 10 mg PO DAILY [facility] Last Admin: 12/02/17 10:08 Dose: 10 mg Fenofibrate (Tricor) 145 mg PO QHS [facility] Last Admin: 12/01/17 21:46 Dose: 145 mg Hydralazine HCl (Apresoline) 25 mg PO BID [facility] Last Admin: 12/02/17 10:10 Dose: Not Given Furosemide 500 mg/ (Miscellaneous Information) 50 mls @ 1 mls/hr CONT INF .Q50H [facility] PRN Reason: 10 MG/HR Last Admin: 12/01/17 17:32 Dose: 1 mls/hr Isosorbide Dinitrate (Isordil) 5 mg PO TID [facility] Last Admin: 12/02/17 06:29 Dose: 5 mg Levothyroxine Sodium (Synthroid) 112 mcg PO DAILY@0600 [facility] Last Admin: 12/02/17 06:29 Dose: 112 mcg Morphine Sulfate () 1 - 2 mg IV Q4H PRN PRN PRN Reason: severe pain/pulm edema Ondansetron HCl (Zofran) 4 mg IV Q8H PRN PRN PRN Reason: Nausea Oxycodone HCl (Oxyir) 5 mg PO Q4H PRN PRN PRN Reason: Moderate Pain (pain scale 4-5) Polyethylene Glycol (Miralax) 17 gm PO DAILY [facility] Last Admin: 12/02/17 10:07 Dose: 17 gm Potassium Chloride (K-Dur) 40 meq PO BID [facility] Stop: 12/02/17 22:01 Last Admin: 12/02/17 10:10 Dose: 40 meq Sodium Chloride () 5 - 30 ml IV UD PRN PRN Reason: SALINE FLUSH Tamsulosin HCl (Flomax) 0.4 mg PO DAILY@0830 [facility] Last Admin: 12/02/17 08:26 Dose: 0.4 mg Zolpidem Tartrate (Ambien (Generic)) 5 mg PO QHS PRN PRN PRN Reason: INSOMNIA - Past Medical History Past Medical History (Chronic Problems): Chronic Problems Warfarin-induced coagulopathy (Chronic) 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 no chronic medications Hypertension (Chronic) Urine retention (Chronic) BPH (benign prostatic hypertrophy) (Chronic) Hypothyroidism (Chronic) Former smoker, stopped smoking in distant past (Chronic) Quit in 1999 AICD (automatic cardioverter/defibrillator) present (Chronic) Pacemaker (Chronic) Diverticulosis (Chronic) Left renal artery stenosis (Chronic) Stent done in February History of PTCA (Chronic) - Past Surgical History Surgical History: angioplasty - With stent, 3 times, cataract, pacemaker implantation - AICD, - - Aortobifemoral grafting, left renal artery stent - Social History Smoking Status: Former smoker - Family History Maternal History Items: Heart Disease Paternal History Items: Heart Disease, Pulmonary Disease - Black lung - Physical Exam General: Alert, Oriented x3 HEENT: Atraumatic Oral: Moist Mucosa Neck: Supple, No JVD Lungs: Clear to auscultation, Normal air movement, No rhonchi Cardiovascular: Regular rate, Regular Rhythm, Normal S1, Normal S2 Abdomen: Bowel Sounds Present, Soft, Non Tender, Non-Distended Extremities: No clubbing, No cyanosis, - - 1 edema of lower extremities Skin: No rashes Musculoskeletal: No Tenderness to Palpation of Joints or Extremities Lymphatic: No Cervical, Supraclavicular, or Inguinal Adenopathy Neurological: Cranial nerves II-XII grossly intact, Neuro grossly intact Psych/Mental Status: Normal Affect Vital Signs Temp Pulse Resp BP Pulse Ox 97.6 F L 67 20 H 115/55 L 98 12/02/17 10:04 12/02/17 10:10 12/02/17 10:04 12/02/17 10:10 12/02/17 10:04 Oxygen Flow Rate (L/min) 3 Oxygen Delivery Method Nasal Cannula Weight: 93.7 kg Body Mass Index (BMI) 32.6 Intake and Output for Last 24 Hours 11/30/17 12/01/17 12/02/17 23:59 23:59 23:59 Intake Total 326 / 326 506 / 506 Output Total 1500 / 2100 925 / 925 Balance -1174 / -1774 -419 / -419 Laboratory Tests Past 24 Hrs 12/01/17 12/01/17 12/01/17 16:56 16:56 16:56 WBC RBC Hgb Hct MCV MCH MCHC RDW RDW Differential Plt Count MPV Immature Gran % (Auto) Neut % (Auto) Lymph % (Auto) Lane % (Auto) Eos % (Auto) Baso % (Auto) Absolute Neuts (auto) Absolute Lymphs (auto) Total Counted PT 29.4 H INR 2.8 Sodium Potassium Chloride Carbon Dioxide Anion Gap BUN Creatinine Estim Creat Clear Calc Est GFR (MDRD) Af Amer Est GFR (MDRD) Non-Af BUN/Creatinine Ratio Glucose Calcium Magnesium 2.4 Troponin I 0.031 Triglycerides Cholesterol LDL Cholesterol VLDL Cholesterol HDL Cholesterol TSH Blood Type Antibody Screen Crossmatch 12/01/17 12/01/17 12/02/17 20:30 20:30 04:16 WBC 5.4 RBC 3.72 L Hgb 7.6 L Hct 28.8 L MCV 77.4 L MCH 20.4 L MCHC 26.4 L RDW 19.0 H RDW Differential 54.0 H Plt Count 147 L MPV 9.6 Immature Gran % (Auto) 0.000 Neut % (Auto) 78.3 H Lymph % (Auto) 11.[address] % (Auto) 10.0 Eos % (Auto) 0.2 Baso % (Auto) 0.2 Absolute Neuts (auto) 4.3 Absolute Lymphs (auto) 0.61 L Total Counted Not Reportable PT INR Sodium Potassium Chloride Carbon Dioxide Anion Gap BUN Creatinine Estim Creat Clear Calc Est GFR (MDRD) Af Amer Est GFR (MDRD) Non-Af BUN/Creatinine Ratio Glucose Calcium Magnesium Troponin I 0.035 Triglycerides Cholesterol LDL Cholesterol VLDL Cholesterol HDL Cholesterol TSH Blood Type A POSITIVE Antibody Screen NEGATIVE Crossmatch See Detail 12/02/17 12/02/17 04:16 04:16 WBC RBC Hgb Cancelled Hct Cancelled MCV MCH MCHC RDW RDW Differential Plt Count MPV Immature Gran % (Auto) Neut % (Auto) Lymph % (Auto) Lane % (Auto) Eos % (Auto) Baso % (Auto) Absolute Neuts (auto) Absolute Lymphs (auto) Total Counted PT INR Sodium 143 Potassium 3.2 L Chloride 95 L Carbon Dioxide 43.0 H Anion Gap 5 BUN 57 H Creatinine 2.14 H Estim Creat Clear Calc 30.89 Est GFR (MDRD) Af Amer 40 L Est GFR (MDRD) Non-Af 33 L BUN/Creatinine Ratio 26.6 H Glucose 88 Calcium 9.0 Magnesium 2.4 Troponin I Triglycerides 120 Cholesterol 98 LDL Cholesterol 52 VLDL Cholesterol 24 HDL Cholesterol 22 L TSH 3.26 Blood Type Antibody Screen Crossmatch POC Glucose 12/01/17 17:14 POC Glucose 90 Assessment/Plan 1-kidney injury on chronic kidney disease. Baseline creatinine around 1.7 most probably from cardiorenal syndrome and nephrosclerosis. Acute kidney injury this time is from cardiorenal syndrome type I. Creatinine is improving with diuresis. Last creatinine trend is 2.3-2.1 mg a deciliter. I agree to continue the same dose of Lasix drip now. Keep mean arterial pressure more than 65. Please avoid JUANITA inhibitor and ARB with diuresis. No need for renal replacement therapy. 2-hypokalemia: Most probably from renal loss in addition to metabolic alkalosis. I agree with the potassium chloride 40 mEq twice a day. Check magnesium level in the morning. 3-metabolic alkalosis. Most probably due to volume contraction. I will continue to monitor. If bicarb increase more than 45, I will give the patient 1 dose of acetazolamide. 4-acute hypoxemic respiratory failure due to CHF decompensation. Improved with diuresis. Continue the same dose of Lasix drip. Continue O2 support through nasal cannula. Cardiology service was consulted. 5-iron deficiency anemia. Patient presented with a hemoglobin 6.9. Patient received 1 unit of RBCs yesterday. I will start the patient on Venofer 1 g over 10 days. Thank you for the consult. I will continue to follow. Please do not hesitate to call me at my cell phone [phone] with any question. hCari Downey MD [phone]
--- NOTE | 2017-12-02 12:43 | CASEMGMT ---
CM INITIAL ASSESSMENT: Home: Patient lives alone, in a one story home. Son and daughter both live in [place], near patient. HHS/Aides: Patient has HHS in January 2017, after a short stay in TCU. Does not currently have HHS. DME: Denies Home Oxygen: Patient wears 3 L continuous oxygen, provided by [employer]. Pharmacy: [email or web address] in [place] Advance Directives: Yes, verified to be on file in E-Chart. Samy Avery is POA, Jocelyn Avery is first alternate. PCP: Tyrone Bhakta Specialists: Dr. Mcgregor and Dr. Tavarez Palliative care discussed, as an option, with patient. Patient declines at this time. DC Plan: Home.
--- NOTE | 2017-12-02 12:53 | PCM.PROGNOTE ---
Subjective: Patient was seen and examined today, he is currently on 3 L of O2 which is his home setting. Patient is currently on a Lasix drip, I talked with nephro and cardiology about his medical care today. - Physical Exam General: Alert, Oriented x3, Cooperative, No apparent distress, Well developed, Well nourished HEENT: Atraumatic, PERRLA, EOMI, Normocephalic Oral: Moist Mucosa Neck: Supple, No JVD, Negative Carotid Bruits, No Nuchal Rigidity, Trachea Midline, Thyroid Normal Size and Texture Lungs: No rhonchi, No wheeze, Diminished Cardiovascular: Regular rate - Paced rhythm, Murmur - 2/6 systolic murmur is noted at the apex Abdomen: Bowel Sounds Present, Soft, Non Tender, Non-Distended Extremities: Capillary Refill Less than 3 Seconds, Edema - Bilateral lower leg edema is noted Skin: No rashes, No breakdown Musculoskeletal: No Tenderness to Palpation of Joints or Extremities Neurological: Cranial nerves II-XII grossly intact, Neuro grossly intact, Sensory exam intact to light touch and pain, Coordination normal Psych/Mental Status: Normal Affect, Appropriate, Alert and oriented to time, place, person, mood and affect Vital Signs Temp Pulse Resp BP Pulse Ox 97.6 F L 86 20 H 115/55 L 98 12/02/17 10:04 12/02/17 11:06 12/02/17 10:04 12/02/17 10:10 12/02/17 10:04 Oxygen Flow Rate (L/min) 3 Oxygen Delivery Method Nasal Cannula Weight: 93.7 kg Body Mass Index (BMI) 32.6 Intake and Output for Last 24 Hours 11/30/17 12/01/17 12/02/17 23:59 23:59 23:59 Intake Total 326 / 326 1048.5 / 1048.5 Output Total 1500 / 2100 1225 / 1225 Balance -1174 / -1774 -176.5 / -176.5 Laboratory Tests Past 24 Hrs 12/01/17 12/01/17 12/01/17 16:56 16:56 16:56 WBC RBC Hgb Hct MCV MCH MCHC RDW RDW Differential Plt Count MPV Immature Gran % (Auto) Neut % (Auto) Lymph % (Auto) Evangeline % (Auto) Eos % (Auto) Baso % (Auto) Absolute Neuts (auto) Absolute Lymphs (auto) Total Counted PT 29.4 H INR 2.8 Sodium Potassium Chloride Carbon Dioxide Anion Gap BUN Creatinine Estim Creat Clear Calc Est GFR (MDRD) Af Amer Est GFR (MDRD) Non-Af BUN/Creatinine Ratio Glucose Calcium Magnesium 2.4 Troponin I 0.031 Triglycerides Cholesterol LDL Cholesterol VLDL Cholesterol HDL Cholesterol TSH Blood Type Antibody Screen Crossmatch 12/01/17 12/01/17 12/02/17 20:30 20:30 04:16 WBC 5.4 RBC 3.72 L Hgb 7.6 L Hct 28.8 L MCV 77.4 L MCH 20.4 L MCHC 26.4 L RDW 19.0 H RDW Differential 54.0 H Plt Count 147 L MPV 9.6 Immature Gran % (Auto) 0.000 Neut % (Auto) 78.3 H Lymph % (Auto) 11.3 L Evangeline % (Auto) 10.0 Eos % (Auto) 0.2 Baso % (Auto) 0.2 Absolute Neuts (auto) 4.3 Absolute Lymphs (auto) 0.61 L Total Counted Not Reportable PT INR Sodium Potassium Chloride Carbon Dioxide Anion Gap BUN Creatinine Estim Creat Clear Calc Est GFR (MDRD) Af Amer Est GFR (MDRD) Non-Af BUN/Creatinine Ratio Glucose Calcium Magnesium Troponin I 0.035 Triglycerides Cholesterol LDL Cholesterol VLDL Cholesterol HDL Cholesterol TSH Blood Type A POSITIVE Antibody Screen NEGATIVE Crossmatch See Detail 12/02/17 12/02/17 04:16 04:16 WBC RBC Hgb Cancelled Hct Cancelled MCV MCH MCHC RDW RDW Differential Plt Count MPV Immature Gran % (Auto) Neut % (Auto) Lymph % (Auto) Evangeline % (Auto) Eos % (Auto) Baso % (Auto) Absolute Neuts (auto) Absolute Lymphs (auto) Total Counted PT INR Sodium 143 Potassium 3.2 L Chloride 95 L Carbon Dioxide 43.0 H Anion Gap 5 BUN 57 H Creatinine 2.14 H Estim Creat Clear Calc 30.89 Est GFR (MDRD) Af Amer 40 L Est GFR (MDRD) Non-Af 33 L BUN/Creatinine Ratio 26.6 H Glucose 88 Calcium 9.0 Magnesium 2.4 Troponin I Triglycerides 120 Cholesterol 98 LDL Cholesterol 52 VLDL Cholesterol 24 HDL Cholesterol 22 L TSH 3.26 Blood Type Antibody Screen Crossmatch POC Glucose 12/01/17 17:14 POC Glucose 90 Medical Necessity - Tobacco Use Smoking Status: Former smoker Tobacco Use: Cigarettes Assessment/Plan #1 acute on chronic systolic congestive heart failure-patient will continue on Lasix drip, cardiology is participating in his care #2 ischemic cardiomyopathy #3 chronic kidney disease stage III #4 chronic hypoxic respiratory failure #5 pulmonary hypertension #6 peripheral vascular disease #7 hyperlipidemia #8 chronic obstructive pulmonary disease #9 anemia-I had a discussion with nephrology today, they stated that they have seen iron levels on the patient before that have been low and believe he has an iron deficiency anemia. I will write for a Hemoccult of the stool and I will discuss with the patient whether he has had a colonoscopy. Nephrology states they will be giving the patient IV iron during this hospitalization Code Visit Inpatient E&M: 95185 Subs Hosp L2
--- NOTE | 2017-12-02 16:09 | CHAPLAIN ---
Type of Pastoral Visit _x__ Initial Visit ___ Follow-up Visit ___ On-call Visit ___ General Patient Visit ___ Spiritual Assessment ___ Family Conference ___ Bereavement ___ Rapid Response ___ Code Blue ___ Other (describe below) Pastoral Care Referral From _x__ Patient ___ Family ___ Nurse ___ Physician ___ Barkeeper ___ Review Trainer ___ Other (describe below) Sacrament/Intervention ___ Active listening ___ Anointing ___ Jainism ___ Bereavement ___ Communion ___ Khadra exploration ___ ___ Life review _x__ Prayer ___ Reconciliation ___ Sacrament of Sick _x__ Supportive presence ___ Wedding ___ Other (describe below) Pastoral Comments
[2017-12-02] MEDS: oxyCODONE 5 MG Tablet PO (22:23)
[2017-12-02] MEDS: hydrALAZINE 25 MG Tablet PO (22:24)
[2017-12-02] MEDS: Atorvastatin Calcium 80 MG Tablet PO (22:24)
[2017-12-02] MEDS: Fenofibrate 145 MG Tablet PO (22:34)
[2017-12-02] MEDS: 0.9% NaCl Peripheral Flush Adult/Peds IV (22:40)
[2017-12-03] VITALS (15 sets, daily range): BP systolic 100–112; BP diastolic 51–61; PULSE 64–78; RESP 15–20; TEMP 36.5–37.1; O2SAT 97–99
--- NOTE | 2017-12-03 02:00 | NURSING ---
this nurse taking over care of this pt. at this time. Report received from RN.
[2017-12-03 06:51] LABS: Potassium 3.6 mmol/L (3.5-5.1)
[2017-12-03] MEDS: Isosorbide DN 10 MG Tablet 5 MG PO ×3 (06:53→21:50)
[2017-12-03] MEDS: Levothyroxine 112 MCG Tablet PO (06:54)
[2017-12-03] MEDS: 0.9% NaCl Peripheral Flush Adult/Peds IV ×2 (06:58→19:21)
[2017-12-03] MEDS: Albuterol 2.5 MG/3 ML VIAL.NEB. INHALATION ×3 (07:14→18:51)
[2017-12-03] MEDS: Budesonide Respules 0.5 MG/2 ML AMPUL.NEB. INHALATION ×2 (07:14→18:50)
[2017-12-03] MEDS: Tamsulosin HCl 0.4 MG Capsule PO (08:25)
[2017-12-03] MEDS: Aspirin E.C. 81 MG Tablet PO (08:25)
--- NOTE | 2017-12-03 10:02 | PCM.PN.CARD ---
Subjectve: Patient doing well, no significant improvement but no deterioration either. Diuresing well. Lower extremities are improved but not completely resolved. No chest pain symptoms. Objective: Vital Signs Temp Pulse Resp BP Pulse Ox 98.3 F 74 16 108/51 L 98 12/03/17 03:29 12/03/17 07:14 12/03/17 07:14 12/03/17 03:29 12/03/17 07:14 Oxygen Flow Rate (L/min) 3 Oxygen Delivery Method Nasal Cannula Weight: 206 lb 9.17 oz Body Mass Index (BMI) 32.6 Intake and Output for Last 24 Hours 12/01/17 12/02/17 12/03/17 23:59 23:59 23:59 Intake Total 326 / 326 1479.3 / 1479.3 297.6 / 297.6 Output Total 1500 / 2100 1700 / 1700 975 / 975 Balance -1174 / -1774 -220.7 / -220.7 -677.4 / -677.4 General: Awake, Alert, Oriented x 3 HEENT: PERRL, EOMI, Sclera Non Icteric Neck: Supple, Good ROM, No Lymph Node Enlargement Lungs: Clear to auscultation Cardiovascular: Irregular Rhythm, Normal S1, Normal S2, No Rubs, No Gallops Murmur Murmur: Grade 2/6, Holosystolic Vascular: No Carotid Bruits, Normal Femoral Pulses, Normal Radial Pulses, Normal Dorsalis Pedal Pulse, Normal Posterior Tibial Pulses Abdomen: Bowel Sounds Present, Soft, Non Tender, No HSM, No Organomegaly Extremities: No Cyanosis, No Clubbing, No edema Neurological: No Focal Motor or Sensory Deficit 12/03/17 05:55: Potassium 3.6 Rhythm: EKG: ECHO: Stress Test: Cardiac Cath: PCI: CT Surgery: Holter monitor: EPS: PPM: CXR: Chest CT Scan: Medical Necessity - Tobacco Use Smoking Status: Former smoker Tobacco Use: Cigarettes Assessment/Plan 1. Ischemic cardiomyopathy: The patient has acute on chronic congestive heart failure with worsening shortness of breath, dyspnea on exertion, and lower extremity edema superimposed on a proximally 10 pound weight gain over the last several months. Patient is currently on a Lasix drip, and diuresing fairly well. Recommend continuing Lasix drip with a goal of a diuresis of approximately 1.0L negative every day until he is reached his dry weight which appears to be around 194 pounds.. We may want to consider renal consultation given his chronic renal insufficiency, and limitations of diuretic therapy and fluid removal. The patient may require hemodialysis sooner than later. I would recommend a 1500 cc fluid restriction, and continue his Coreg, Imdur, hydralazine. His amlodipine may be contributing to his lower extremity edema as well however I believe is necessary for afterload reduction at this time. In addition recommend a repeat echocardiogram to determine if he has had any worsening mitral regurgitation which may be contributing to his pulmonary hypertension and lower extremity edema. His EF at that time 1 year ago was 20% which is a known entity. Continue Justus bandage wraps to assist with venous return. 2. Coronary artery disease: No anginal symptoms at this time. Given his chronic renal insufficiency and peripheral vascular disease I would not recommend repeat catheterization at this time. Should any catheterization be required he will require access via the left groin given his severe peripheral vascular disease in the right groin access site. 3. Hyperlipidemia: Continue statin based medications. 4. Discussed with Dr. Mota. Thank you very much for the opportunity to put dissipate in the cardiac care of your patient. Consultation time took place between 830 and 9:15 AM. Code Visit Inpatient E&M: 36367 Subs Hosp L2
--- NOTE | 2017-12-03 10:05 | ECHOCS_ITS ---
Reason For Study: DYSPNEA/SOB Procedure This was a 2D Doppler, Color Flow transthoracic echocardiogram. Exam performed portable in patient room. Left Ventricle Severely dilated left ventricle. The estimated ejection fraction is 15 %. There is severe global hypokinesis of the left ventricle. Right Ventricle Mildly dilated right ventricle. ICD or pacer leads identified within the right ventricle. Mild to moderate global right ventricular systolic dysfunction. Atria The left atrium is severely enlarged. The right atrium is moderately enlarged. Normal atrial septum. Mitral Valve The mitral valve is structurally normal. No prolapse or stenosis seen. Mild (1+) eccentric mitral valve insufficiency. Tricuspid Valve Normal tricuspid valve. Mild to moderate (1-2+) tricuspid valve insufficiency. Right ventricular systolic pressure estimated to be 69 mmHg. Severe pulmonary hypertension. Aortic Valve Trisinus/trileaflet aortic valve. Mild focal aortic valve thickening. There is no aortic stenosis. Pulmonic Valve The pulmonic valve is not well visualized. Great Vessels Normal aortic root. Normal arch. The inferior vena cava is dilated. No collapse of the inferior vena cava. Pericardium/Pleural No pericardial effusion. MMode/2D Measurements & Calculations LVIDd: 6.4 cm IVSd: 1.4 cm Ao root diam: 3.5 cm LVIDs: 5.9 cm LVPWd: 1.1 cm RVDd: 3.6 cm FS: 7.9 % LAV(MOD-bp): 128.7 ml LVAd ap4: 48.9 cm2 SV(MOD-sp4): 40.8 ml LAV(MOD-bp) Indexed: 62.9 ml/m2 EDV(MOD-sp4): 208.5 ml LAV(MOD-sp2): 127.9 ml EDV(sp4-el): 212.7 ml LAV(MOD-sp4): 114.8 ml LVAs ap4: 40.7 cm2 ESV(MOD-sp4): 167.7 ml ESV(sp4-el): 175.3 ml EF(MOD-sp4): 19.6 % EF(sp4-el): 17.6 % SV(sp4-el): 37.4 ml LA A4 area: 32.3 cm2 RA A4 area: 20.5 cm2 Doppler Measurements & Calculations MV E max enio: 124.4 cm/sec Ao V2 max: 129.8 cm/sec LV V1 max: 98.0 cm/sec Ao max P.8 mmHg LV V1 max P.9 mmHg PA V2 max: 88.2 cm/sec TR max enio: 352.4 cm/sec TR max P.9 mmHg Interpretation Summary Severely dilated left ventricle. The estimated ejection fraction is 15 %. There is severe global hypokinesis of the left ventricle. Mildly dilated right ventricle. The left atrium is severely enlarged. The right atrium is moderately enlarged. Mild (1+) eccentric mitral valve insufficiency. Mild to moderate (1-2+) tricuspid valve insufficiency. Right ventricular systolic pressure estimated to be 69 mmHg. Severe pulmonary hypertension. The inferior vena cava is dilated Compared to echo report dated 10/27/2016, LV Function has remained the same. RVSP has increased from 55 to 69 mm Hg. Pt appears to be in atrial fibrillation. Ordering Physician: Brent Mcgregor Referring Physician: Chari Downey Performed By: Vivian Cabrera RDCS
[2017-12-03] MEDS: hydrALAZINE 25 MG Tablet PO ×2 (11:16→21:50)
[2017-12-03] MEDS: Ezetimibe 10 MG Tablet PO (11:17)
[2017-12-03] MEDS: Carvedilol 25 MG Tablet PO ×2 (11:17→21:50)
[2017-12-03] MEDS: Polyethylene Glycol 3350 17 GM PACKET PO (11:17)
[2017-12-03] MEDS: Amiodarone 200 MG Tablet PO (11:17)
--- NOTE | 2017-12-03 14:28 | PCM.PN.REN ---
Subjective: Patient he still has exertional dyspnea . No SOB at rest On NC at 3 L/M No CP. No nausea No vomiting - Physical Exam General: Alert, Oriented x3 HEENT: Atraumatic Oral: Moist Mucosa Neck: Supple, No JVD Lungs: Diminished, Wheezes Abdomen: Bowel Sounds Present, Soft, Non Tender Extremities: No clubbing, No cyanosis, - - +1 edema Skin: No rashes Musculoskeletal: No Tenderness to Palpation of Joints or Extremities Lymphatic: No Cervical, Supraclavicular, or Inguinal Adenopathy Neurological: Cranial nerves II-XII grossly intact, Neuro grossly intact Psych/Mental Status: Normal Affect Vital Signs Temp Pulse Resp BP Pulse Ox 97.7 F L 75 15 101/53 L 98 12/03/17 14:13 12/03/17 14:13 12/03/17 14:13 12/03/17 14:13 12/03/17 14:13 Oxygen Flow Rate (L/min) 3 Oxygen Delivery Method Nasal Cannula Weight: 94.7 kg Body Mass Index (BMI) 32.6 Intake and Output for Last 24 Hours 12/01/17 12/02/17 12/03/17 23:59 23:59 23:59 Intake Total 326 / 326 1479.3 / 1479.3 980.6 / 980.6 Output Total 1500 / 2100 1700 / 1700 1525 / 1525 Balance -1174 / -1774 -220.7 / -220.7 -544.4 / -544.4 Microbiology Past 72 Hours 12/03/17 10:45 Stool Occult Blood (CÉSAR) - Final Stool Laboratory Tests Past 24 Hrs 12/03/17 12/03/17 05:55 05:55 Sodium Pending Potassium 3.6 Pending Chloride Pending Carbon Dioxide Pending Anion Gap Pending BUN Pending Creatinine Pending Est GFR (MDRD) Af Amer Pending Est GFR (MDRD) Non-Af Pending BUN/Creatinine Ratio Pending Glucose Pending Calcium Pending Medical Necessity - Tobacco Use Smoking Status: Former smoker Tobacco Use: Cigarettes Assessment/Plan 1-kidney injury on chronic kidney disease. Baseline creatinine around 1.7 most probably from cardiorenal syndrome and nephrosclerosis. Acute kidney injury this time is from cardiorenal syndrome type I. Creatinine is improving with diuresis. Last creatinine trend is 2.3-2.1 mg a deciliter on 12/02. Will check BMP today. I will change IV lasix drip to IV lasix BID Keep mean arterial pressure more than 65. Please avoid JUANITA inhibitor and ARB with diuresis. No need for renal replacement therapy. 2-hypokalemia: Most probably from renal loss in addition to metabolic alkalosis. I agree with the potassium chloride 40 mEq twice a day. K today is wnl 3-metabolic alkalosis. Most probably due to volume contraction. I will continue to monitor. If bicarb increases more than 45, I will give the patient 1 dose of acetazolamide. 4-acute hypoxemic respiratory failure due to CHF decompensation. Improved with diuresis. Patient is down to 94.7 Kg Will change diuretic to IV lasix 60 BID Continue O2 support through nasal cannula. Cardiology service is following 5-iron deficiency anemia. Patient presented with a hemoglobin 6.9. Patient received 1 unit of RBCs on 12/01. Hgb increased to 7.4 Patient was given IV venofer 200 mg IV 12/02. Will give the patient another dose today D/W Dr. Mota Please do not hesitate to call me at my cell phone [phone] with any question. Chari Downey MD
[2017-12-03 14:36] LABS: Anion Gap 4 (5-15); BUN 46 mg/dL (7-18); BUN/Creat Ratio 24.3 RATIO (10-20); Calcium,Total 9.1 mg/dL (8.5-10.1); Chloride 98 mmol/L (98-107); Creatinine, Serum 1.89 mg/dL (0.70-1.30); EST Glomerular Filtration Rate 38 mL/min (>60); Est Glom Filt Rate - Afr Amer 46 mL/min (>60); Estimated Creatinine Clearance 34.97 ml/min; Glucose 89 mg/dL (74-106); Potassium 3.7 mmol/L (3.5-5.1); Sodium Level 144 mmol/L (136-145)
--- NOTE | 2017-12-03 17:31 | PCM.PROGNOTE ---
Subjective: Patient was seen and examined today, he states he feels his breathing is better, I discussed his care with nephrology today and his echocardiogram today showed a severely reduced ejection fraction 15% with severe pulmonary hypertension. Nephrology feels it would be okay to add Aldactone to the patient's medications and continue to observe his blood pressure. I have added 25 mg of Aldactone daily to his current medications. Neurology does not feel an JUANITA inhibitor would be safe to add at this time - Physical Exam General: Alert, Oriented x3, Cooperative, No apparent distress, Well developed, Well nourished HEENT: Atraumatic, PERRLA, EOMI, Normocephalic Oral: Moist Mucosa Neck: Supple, No JVD, Trachea Midline, Thyroid Normal Size and Texture Lungs: Normal air movement, No rhonchi, No wheeze, Rales - Inspiratory rales are noted at the bases bilaterally Cardiovascular: Regular rate - Paced rhythm, Regular Rhythm, PMI Normal, No rub noted, No Gallop Abdomen: Bowel Sounds Present, Soft, Non Tender, Non-Distended, No hernias noted Extremities: Capillary Refill Less than 3 Seconds, Edema - Generalized edema is noted over both lower legs Skin: No rashes, No breakdown Musculoskeletal: No Tenderness to Palpation of Joints or Extremities Neurological: Cranial nerves II-XII grossly intact, Neuro grossly intact, Sensory exam intact to light touch and pain, Coordination normal Psych/Mental Status: Normal Affect, Appropriate, Alert and oriented to time, place, person, mood and affect Vital Signs Temp Pulse Resp BP Pulse Ox 97.7 F L 73 15 101/53 L 98 12/03/17 14:13 12/03/17 15:43 12/03/17 14:13 12/03/17 14:13 12/03/17 14:13 Oxygen Flow Rate (L/min) 3 Oxygen Delivery Method Nasal Cannula Weight: 94.7 kg Body Mass Index (BMI) 32.6 Intake and Output for Last 24 Hours 12/01/17 12/02/17 12/03/17 23:59 23:59 23:59 Intake Total 326 / 326 1479.3 / 1479.3 980.6 / 980.6 Output Total 1500 / 2100 1700 / 1700 1525 / 1525 Balance -1174 / -1774 -220.7 / -220.7 -544.4 / -544.4 Microbiology Past 72 Hours 05/18/18 10:45 Stool Occult Blood (CÉSAR) - Final Stool Laboratory Tests Past 24 Hrs 12/03/17 12/03/17 05:55 05:55 Sodium 144 Potassium 3.6 3.7 Chloride 98 Carbon Dioxide 42.0 H Anion Gap 4 L BUN 46 H Creatinine 1.89 H Estim Creat Clear Calc 34.97 Est GFR (MDRD) Af Amer 46 L Est GFR (MDRD) Non-Af 38 L BUN/Creatinine Ratio 24.3 H Glucose 89 Calcium 9.1 Medical Necessity - Tobacco Use Smoking Status: Former smoker Tobacco Use: Cigarettes Assessment/Plan #1 acute on chronic systolic congestive heart failure, EF 15%-patient will continue on Lasix drip, cardiology is participating in his care #2 ischemic cardiomyopathy #3 chronic kidney disease stage III #4 chronic hypoxic respiratory failure #5 pulmonary hypertension-severe #6 peripheral vascular disease #7 hyperlipidemia #8 chronic obstructive pulmonary disease #9 Iron deficiency anemia-patient states he had a colonoscopy done 2 years ago, a small polyp was found but it was otherwise normal. Hemoccult of the patient's stool was negative, I talked to nephrology, patient has a prescription for ferrous sulfate called into pharmacy to take after he is discharged, IV Venofer will be given today and tomorrow Code Visit Inpatient E&M: 82549 Subs Hosp L2
--- NOTE | 2017-12-03 17:40 | PN_ITS ---
Subjective: Patient was seen and examined today, he states he feels his breathing is better , I discussed his care with nephrology today and his echocardiogram today showed a severely reduced ejection fraction 15% with severe pulmonary hypertension. Nephrology feels it would be okay to add Aldactone to the patient 's medications and continue to observe his blood pressure. I have added 25 mg of Aldactone daily to his current medications. Neurology does not feel an JUANITA inhibitor would be safe to add at this time - Physical Exam General: Alert, Oriented x3, Cooperative, No apparent distress, Well developed, Well nourished HEENT: Atraumatic, PERRLA, EOMI, Normocephalic Oral: Moist Mucosa Neck: Supple, No JVD, Trachea Midline, Thyroid Normal Size and Texture Lungs: Normal air movement, No rhonchi, No wheeze, Rales - Inspiratory rales are noted at the bases bilaterally Cardiovascular: Regular rate - Paced rhythm, Regular Rhythm, PMI Normal, No rub noted, No Gallop Abdomen: Bowel Sounds Present, Soft, Non Tender, Non-Distended, No hernias noted Extremities: Capillary Refill Less than 3 Seconds, Edema - Generalized edema is noted over both lower legs Skin: No rashes, No breakdown Musculoskeletal: No Tenderness to Palpation of Joints or Extremities Neurological: Cranial nerves II-XII grossly intact, Neuro grossly intact, Sensory exam intact to light touch and pain, Coordination normal Psych/Mental Status: Normal Affect, Appropriate, Alert and oriented to time, place, person, mood and affect Vital Signs Temp Pulse Resp BP Pulse Ox 97.7 F L 73 15 101/53 L 98 12/03/17 14:13 12/03/17 15:43 12/03/17 14:13 12/03/17 14:13 12/03/17 14:13 Oxygen Flow Rate (L/min) 3 Oxygen Delivery Method Nasal Cannula Weight: 94.7 kg Body Mass Index (BMI) 32.6 Intake and Output for Last 24 Hours 12/01/17 12/02/17 12/03/17 23:59 23:59 23:59 Intake Total 326 / 326 1479.3 / 1479.3 980.6 / 980.6 Output Total 1500 / 2100 1700 / 1700 1525 / 1525 Balance -1174 / -1774 -220.7 / -220.7 -544.4 / -544.4 Microbiology Past 72 Hours 05/18/18 10:45 Stool Occult Blood (CÉSAR) - Final Stool Laboratory Tests Past 24 Hrs 12/03/17 12/03/17 05:55 05:55 Sodium 144 Potassium 3.6 3.7 Chloride 98 Carbon Dioxide 42.0 H Anion Gap 4 L BUN 46 H Creatinine 1.89 H Estim Creat Clear Calc 34.97 Est GFR (MDRD) Af Amer 46 L Est GFR (MDRD) Non-Af 38 L BUN/Creatinine Ratio 24.3 H Glucose 89 Calcium 9.1 Medical Necessity - Tobacco Use Smoking Status: Former smoker Tobacco Use: Cigarettes Assessment/Plan #1 acute on chronic systolic congestive heart failure, EF 15%-patient will continue on Lasix drip, cardiology is participating in his care #2 ischemic cardiomyopathy #3 chronic kidney disease stage III #4 chronic hypoxic respiratory failure #5 pulmonary hypertension-severe #6 peripheral vascular disease #7 hyperlipidemia #8 chronic obstructive pulmonary disease #9 Iron deficiency anemia-patient states he had a colonoscopy done 2 years ago , a small polyp was found but it was otherwise normal. Hemoccult of the patient 's stool was negative, I talked to nephrology, patient has a prescription for ferrous sulfate called into pharmacy to take after he is discharged, IV Venofer will be given today and tomorrow Code Visit Inpatient E&M: 04728 Subs Hosp L2
[2017-12-03] MEDS: Furosemide 100 MG/10 ML Vial 60 MG IV (19:21)
[2017-12-03 19:50] LABS: Hematocrit 28.6 % (40-54); Hemoglobin 7.4 g/dl (13.0-16.5); Mean Corp Hgb Conc 25.9 g/gl (32-36); Mean Corpuscular Hgb 20.4 pg (27.0-32.0); Mean Platelet Vol. 8.7 fl (6.2-12.0); Platelet Count 135 K/mm3 (150-450); RBC Distribution Width CV 19.6 % (11.6-14.6); RBC Distribution Width SD 56.6 fl (35.1-43.9); Red Blood Count 3.62 M/mm3 (4.6-6.2); White Blood Count 5.5 K/mm3 (4.4-11.0)
[2017-12-03 19:56] LABS: Scan Indicated on CBC? Y/N NO
[2017-12-03 20:02] LABS: International Normalized Ratio 2.3; Prothrombin Time (Protime)PT. 25.5 SECONDS (11.7-14.9)
[2017-12-03] MEDS: Spironolactone 25 MG Tablet PO (21:50)
[2017-12-03] MEDS: Fenofibrate 145 MG Tablet PO (21:50)
[2017-12-03] MEDS: Atorvastatin Calcium 80 MG Tablet PO (21:50)
[2017-12-04] VITALS (8 sets, daily range): BP systolic 96–111; BP diastolic 39–55; PULSE 61–91; RESP 16–18; TEMP 36.6–37; O2SAT 95–98
[2017-12-04] MEDS: Levothyroxine 112 MCG Tablet PO (05:06)
[2017-12-04] MEDS: Isosorbide DN 10 MG Tablet 5 MG PO ×2 (05:06→13:15)
[2017-12-04 07:06] LABS: Hematocrit 28.7 % (40-54); Hemoglobin 7.4 g/dl (13.0-16.5); Mean Corp Hgb Conc 25.8 g/gl (32-36); Mean Corpuscular Hgb 20.8 pg (27.0-32.0); Mean Corpuscular Volume 80.8 fL (80-94); Mean Platelet Vol. 10.4 fl (6.2-12.0); Platelet Count 157 K/mm3 (150-450); RBC Distribution Width CV 19.8 % (11.6-14.6); RBC Distribution Width SD 54.7 fl (35.1-43.9); Red Blood Count 3.55 M/mm3 (4.6-6.2)
[2017-12-04 07:10] LABS: Scan Indicated on CBC? Y/N NO
[2017-12-04 07:12] LABS: International Normalized Ratio 2.1; Prothrombin Time (Protime)PT. 23.7 SECONDS (11.7-14.9)
[2017-12-04] MEDS: Budesonide Respules 0.5 MG/2 ML AMPUL.NEB. INHALATION (07:12)
[2017-12-04] MEDS: Albuterol 2.5 MG/3 ML VIAL.NEB. INHALATION (07:12)
[2017-12-04 08:20] LABS: Anion Gap 5 (5-15); BUN 40 mg/dL (7-18); BUN/Creat Ratio 23.4 RATIO (10-20); Chloride 97 mmol/L (98-107); Creatinine, Serum 1.71 mg/dL (0.70-1.30); EST Glomerular Filtration Rate 42 mL/min (>60); Est Glom Filt Rate - Afr Amer 51 mL/min (>60); Estimated Creatinine Clearance 38.65 ml/min; Glucose 90 mg/dL (74-106); Potassium 3.6 mmol/L (3.5-5.1); Sodium Level 146 mmol/L (136-145)
[2017-12-04] MEDS: Carvedilol 25 MG Tablet PO (09:54)
[2017-12-04] MEDS: Polyethylene Glycol 3350 17 GM PACKET PO (09:54)
[2017-12-04] MEDS: Spironolactone 25 MG Tablet PO (09:55)
[2017-12-04] MEDS: Aspirin E.C. 81 MG Tablet PO (09:55)
[2017-12-04] MEDS: Tamsulosin HCl 0.4 MG Capsule PO (09:55)
[2017-12-04] MEDS: hydrALAZINE 25 MG Tablet PO (09:55)
[2017-12-04] MEDS: Furosemide 100 MG/10 ML Vial 60 MG IV (09:55)
[2017-12-04] MEDS: Ezetimibe 10 MG Tablet PO (09:55)
[2017-12-04] MEDS: Amiodarone 200 MG Tablet PO (09:55)
[2017-12-04] MEDS: 0.9% NaCl Peripheral Flush Adult/Peds IV (09:55)
--- NOTE | 2017-12-04 13:03 | PN.CARD_ITS ---
Subjectve: The patient states he is feeling much better overall status post his diuresis. He notes that he can walk now without his obvious shortness of breath/dyspnea. He states he can lift his legs as opposed to previously feeling that they were too heavy to lift. Objective: Vital Signs Temp Pulse Resp BP Pulse Ox 97.9 F 73 18 96/39 L 97 12/04/17 09:08 12/04/17 11:38 12/04/17 09:08 12/04/17 09:08 12/04/17 09:08 Oxygen Flow Rate (L/min) 3 Oxygen Delivery Method Nasal Cannula Weight: 205 lb 4.006 oz Body Mass Index (BMI) 32.6 Intake and Output for Last 24 Hours 12/02/17 12/03/17 12/04/17 23:59 23:59 23:59 Intake Total 1479.3 / 1479.3 1400.6 / 1400.6 350 / 350 Output Total 1700 / 1700 1925 / 1925 1775 / 1775 Balance -220.7 / -220.7 -524.4 / -524.4 -1425 / -1425 General: Awake, Alert, Oriented x 3, Cooperative, No Acute Distress Neck: No JVD Lungs: Clear to auscultation Cardiovascular: Irregular Rhythm, Normal S1, Normal S2 Abdomen: Bowel Sounds Present, Soft, Non Tender Extremities: Trace RLE Edema, Trace LLE Edema 12/03/17 05:55: Sodium 144, Potassium 3.7, Chloride 98, Carbon Dioxide 42.0 H, Anion Gap 4 L, BUN 46 H, Creatinine 1.89 H, Est GFR (MDRD) Af Amer 46 L, Est GFR (MDRD) Non-Af 38 L, BUN/Creatinine Ratio 24.3 H, Glucose 89, Calcium 9.1 12/03/17 19:41: PT 25.5 H, INR 2.3 12/03/17 19:41: WBC 5.5, RBC 3.62 L, Hgb 7.4 L, Hct 28.6 L, MCV 79.0 L, MCH 20.4 L, MCHC 25.9 L, RDW 19.6 H, RDW Differential 56.6 H, Plt Count 135 L, MPV 8.7 12/04/17 06:34: Sodium 146 H, Potassium 3.6, Chloride 97 L, Carbon Dioxide 44.0 H, Anion Gap 5, BUN 40 H, Creatinine 1.71 H, Est GFR (MDRD) Af Amer 51 L, Est GFR (MDRD) Non-Af 42 L, BUN/Creatinine Ratio 23.4 H, Glucose 90, Calcium 9.0 12/04/17 06:34: WBC 6.0, RBC 3.55 L, Hgb 7.4 L, Hct 28.7 L, MCV 80.8, MCH 20.8 L , MCHC 25.8 L, RDW 19.8 H, RDW Differential 54.7 H, Plt Count 157, MPV 10.4 12/04/17 06:34: PT 23.7 H, INR 2.1 Rhythm: Atrial fibrillation; intermittent electronic ventricular paced rhythm Medical Necessity - Tobacco Use Smoking Status: Former smoker Tobacco Use: Cigarettes Assessment/Plan 1. CAD status post PCI At the present time the patient appears without acute symptoms related to his underlying CAD status. He does need to continue risk factor modification and medical management as deemed appropriate. 2. Ischemic mediated cardiomyopathy The patient does have an underlying ischemic mediated cardiomyopathy. He has severe decreased LV systolic function. He is continuing medical therapy and adjustment. 3. Acute on chronic systolic mediated CHF She does appear to be symptomatically improved compared to his admission. He states his examination has improved with respect to his observation of his lower extremities. He will continue medical management. This includes combined medications to assist with his underlying diminished LV systolic function and CHF. 4. Atrial fibrillation The patient does need to continue a combination of rate control therapy, anticoagulant therapy, etc. as deemed appropriate. 5. ICD The patient states his ICD has not recently gone off. He will need to continue to have this followed as an outpatient. 6. Hyperlipidemia The patient will continue lipid-lowering therapy. Overall it appears the plan is for continued conservative medical management and outpatient cardiovascular follow-up. This note was generated with [employer] dictation software. It may contain incorrect words, spelling, and punctuation that were not noted in checking the note before signing.
--- NOTE | 2017-12-04 13:39 | PCM.DC ---
You will use the following diet at home:: No restrictions Your food should be the consistency of: Regular Your liquids should be the consistency of: Regular/Thin Discharge Activity: Return to Normal Activity Weight Bearing Status: Full weight bearing Allergies/Adverse Reactions: Allergies No Known Allergies Allergy (Verified 12/01/17 11:52) Medications to take at Discharge Albuterol IH (ProAir) [Proair Hfa] 1 - 2 puff INHALATION Q4H PRN PRN 12/01/17 Amiodarone HCl 200 mg PO DAILY 12/01/17 Aspirin E.C. [Ecotrin] 81 mg PO DAILY@0800 12/01/17 Budesonide/Formoterol 160/4.5 [Symbicort 160/4.5 Mcg Inhaler (SP)] 1 puff INHALATION BID 12/01/17 Carvedilol 25 mg PO BID 12/01/17 Ezetimibe [Zetia] 10 mg PO QHS 12/01/17 Fenofibrate Nanocrystallized [Fenofibrate] 145 mg PO QHS 12/01/17 Isosorbide Dinitrate 5 mg PO TID 12/01/17 Levothyroxine Sodium 112 mcg PO DAILY 12/01/17 Metolazone [Zaroxolyn] 2.5 mg PO TUTH 12/01/17 Potassium Chloride [K-Dur] 10 meq PO BID 12/01/17 Rosuvastatin Calcium [Crestor] 40 mg PO QHS 12/01/17 Tamsulosin HCl [Flomax] 0.4 mg PO DAILY 12/01/17 Tiotropium [place] [Spiriva Respimat] 2 puff INHALATION BID 12/01/17 Warfarin Sodium 3 mg PO DAILY 12/01/17 hydrALAZINE [Apresoline] 25 mg PO BID 12/01/17 Ferrous Sulfate 325 mg PO TIDCM #1 tablet 12/04/17 Furosemide 60 mg PO TID #1 tablet 12/04/17 Spironolactone [Aldactone] 25 mg PO DAILY #30 tab 12/04/17 The following prescriptions were given: Spironolactone [Aldactone] 25 mg PO DAILY #30 tab Ferrous Sulfate 325 mg PO TIDCM #1 tablet Furosemide 60 mg PO TID #1 tablet Primary Care Physician: Tyrone Bhakta [Primary Care Provider] - Please follow up with your Primary Care Physician in: in 3 weeks Please Follow Up With: Chari Downey MD When: in 2 weeks Please Follow Up With: Brent Mcgregor MD When: in 3 weeks
--- NOTE | 2017-12-04 17:22 | PCM.DC.SUM ---
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 no chronic medications Hypertension (Chronic) Urine retention (Chronic) BPH (benign prostatic hypertrophy) (Chronic) Hypothyroidism (Chronic) Former smoker, stopped smoking in distant past (Chronic) Quit in 1999 AICD (automatic cardioverter/defibrillator) present (Chronic) Pacemaker (Chronic) Diverticulosis (Chronic) Left renal artery stenosis (Chronic) Stent done in February History of PTCA (Chronic) Hospital Course and Treatment Operations: None Procedures: 2-D Echocardiogram Summary of Care Provided: The patient is a 66 year old M was seen in the emergency room with a chief complaint of weight gain, lower extremity edema, and dyspnea with very light exertion. Patient denied any chest discomfort. Workup in the emergency room included a chest x-ray which showed increased right pleural effusion with right basilar atelectasis and/or infiltrate, EKG showed atrial fibrillation with frequent ventricular paced complexes, CBC showed a low hemoglobin at 6.9, white blood cell count was 4.1, BMP was remarkable for a potassium of 3.1, creatinine of 2.29, BUN of 58, and the patient's troponin was normal. Patient required 4 L to maintain his pulse ox above 90%-he uses 3 L chronically at home. Patient was felt to be in congestive heart failure, and initially it was documented as combined diastolic and systolic congestive heart failure, but I felt that the patient had systolic rather than combined heart failure. Patient was admitted to PCU, he was seen in consultation by nephrology and cardiology, potassium replacement was given, he was placed on IV Lasix and his cardiac medications were adjusted and monitored. Patient diuresed well during his hospital stay, his creatinine actually lowered. Echocardiogram was obtained which showed a poor ejection fraction of 15% along with pulmonary hypertension. Patient was given Venofer infusions by nephrology who had worked up the patient's anemia as an outpatient and found he was iron deficient. Nephrology did not feel it was a good idea to place the patient on an JUANITA inhibitor and cardiology did not feel that it was safe to put the patient on JUANITA inhibitor. On 12/04/17, patient was seen and examined felt to be in stable condition for discharge home Discharge Activity: Return to Normal Activity Weight Bearing Status: Full weight bearing Home Medications: Medications to take at Discharge Albuterol IH (ProAir) [Proair Hfa] 1 - 2 puff INHALATION Q4H PRN PRN 12/01/17 Amiodarone HCl 200 mg PO DAILY 12/01/17 Aspirin E.C. [Ecotrin] 81 mg PO DAILY@0800 12/01/17 Budesonide/Formoterol 160/4.5 [Symbicort 160/4.5 Mcg Inhaler (SP)] 1 puff INHALATION BID 12/01/17 Carvedilol 25 mg PO BID 12/01/17 Ezetimibe [Zetia] 10 mg PO QHS 12/01/17 Fenofibrate Nanocrystallized [Fenofibrate] 145 mg PO QHS 12/01/17 Isosorbide Dinitrate 5 mg PO TID 12/01/17 Levothyroxine Sodium 112 mcg PO DAILY 12/01/17 Metolazone [Zaroxolyn] 2.5 mg PO TUTH 12/01/17 Potassium Chloride [K-Dur] 10 meq PO BID 12/01/17 Rosuvastatin Calcium [Crestor] 40 mg PO QHS 12/01/17 Tamsulosin HCl [Flomax] 0.4 mg PO DAILY 12/01/17 Tiotropium [place] [Spiriva Respimat] 2 puff INHALATION BID 12/01/17 Warfarin Sodium 3 mg PO DAILY 12/01/17 hydrALAZINE [Apresoline] 25 mg PO BID 12/01/17 Ferrous Sulfate 325 mg PO TIDCM #1 tablet 12/04/17 Furosemide 60 mg PO TID #1 tablet 12/04/17 Spironolactone [Aldactone] 25 mg PO DAILY #30 tab 12/04/17 Following Prescrptions Were Given to Patient: Spironolactone [Aldactone] 25 mg PO DAILY #30 tab Ferrous Sulfate 325 mg PO TIDCM #1 tablet Furosemide 60 mg PO TID #1 tablet Primary Care Physician: Tyrone Bhakta [Primary Care Provider] - Please follow up with your Primary Care Physician in: in 3 weeks Please Follow Up With: Chari Downey MD When: in 2 weeks Please Follow Up With: Brent Mcgregor MD When: in 3 weeks Disposition: Home Minutes spent on discharge:: 32 Patient Condition:: Stable Medical Necessity - Tobacco Use Smoking Status: Former smoker Tobacco Use: Cigarettes Meaningful Use Info Meaningful Use Diagnoses (Choose all that apply): CHF - CHF JUANITA/ARB ordered at discharge?: No Reason JUANITA/ARB not ordered?: Worsening renal function, Hypotension, Renal artery stenosis Documented LVEF (%): 15 Code Visit Inpatient E&M: 70888 Disch Hosp
--- NOTE | 2017-12-07 14:27 | CASEMGMT ---
CHAN CONTRERAS Discharge F/U Phone Call LACE: 11 STRATA: 3 Call Date: 12/07/17 Discharge date: 12/04/17 Time of Call: 1427 Duration: 3 minutes Adm Dx: CHF exacerbation Pt states has 'been doing good' since discharge and states no questions regarding D/C instructions or medications at this time. Pt states 'I think we've got it all worked out.' Pt states that he has not made f/u appointments yet but plans to. Pt states no further questions/concerns/needs at this time. [place] [facility]AN CONTRERAS
== END 2017-12-04 14:00 | disposition home or self-care (01) | DRG 291 ==
LOC: ED 15:38 → PCU 16:01
PROVIDERS: Internal Medicine Nephrology; Admitting Provider Internal Medicine; Emergency Provider Emergency Medicine; Visit Provider Internal Medicine
DX: I13.0 Hypertensive heart and chronic kidney disease with heart failure and stage 1 through stage 4 chronic kidney disease, or unspecified chronic kidney disease (principal); I50.23 Acute on chronic systolic (congestive) heart failure; I26.09 Other pulmonary embolism with acute cor pulmonale; N17.9 Acute kidney failure, unspecified; J96.11 Chronic respiratory failure with hypoxia; D68.9 Coagulation defect, unspecified; J98.11 Atelectasis; J96.12 Chronic respiratory failure with hypercapnia; J90 Pleural effusion, not elsewhere classified; E87.3 Alkalosis; N18.3 Chronic kidney disease, stage 3 (moderate); I25.10 Atherosclerotic heart disease of native coronary artery without angina pectoris; I25.5 Ischemic cardiomyopathy; I48.2 Chronic atrial fibrillation; E87.6 Hypokalemia; J44.9 Chronic obstructive pulmonary disease, unspecified; D50.9 Iron deficiency anemia, unspecified; I77.9 Disorder of arteries and arterioles, unspecified; E78.5 Hyperlipidemia, unspecified; N40.1 Benign prostatic hyperplasia with lower urinary tract symptoms; R33.8 Other retention of urine; K57.90 Diverticulosis of intestine, part unspecified, without perforation or abscess without bleeding; J60 Coalworker's pneumoconiosis; I70.1 Atherosclerosis of renal artery; E03.9 Hypothyroidism, unspecified; E66.01 Morbid (severe) obesity due to excess calories; Z96.0 Presence of urogenital implants; Z87.891 Personal history of nicotine dependence; Z95.810 Presence of automatic (implantable) cardiac defibrillator; Z98.61 Coronary angioplasty status; Z68.32 Body mass index [BMI] 32.0-32.9, adult; Z99.81 Dependence on supplemental oxygen; Z79.82 Long term (current) use of aspirin; Z79.01 Long term (current) use of anticoagulants; Z79.899 Other long term (current) drug therapy
CPT/HCPCS: 36415; 71046; 80048; 80061; 82274; 82962; 83735; 84132; 84443; 84484; 85025; 85027; 85610; 86850; 86900; 86920; 86922; 93005; 93306; 94640; 97110; 97162; 97165; 99285; J1756; J7040; P9016; A4216; J1940

== ENCOUNTER 2018-01-11 12:36 | Outpatient (RCR) | payer MEDICARE, OTHER, SELFPAY ==
[2017-12-29 11:26] LABS: International Normalized Ratio 1.6; Prothrombin Time (Protime)PT. 18.6 SECONDS (11.7-14.9)
[2017-12-29 11:51] LABS: Anion Gap 7 (5-15); BUN 89 mg/dL (7-18); BUN/Creat Ratio 27.2 RATIO (10-20); Chloride 96 mmol/L (98-107); Creatinine, Serum 3.27 mg/dL (0.70-1.30); EST Glomerular Filtration Rate 20 mL/min (>60); Est Glom Filt Rate - Afr Amer 24 mL/min (>60); Glucose 107 mg/dL (74-106); Potassium 4.3 mmol/L (3.5-5.1); Sodium Level 138 mmol/L (136-145)
[2018-01-11 14:16] LABS: International Normalized Ratio 3.4; Prothrombin Time (Protime)PT. 34.2 SECONDS (11.7-14.9)
[2018-01-11 14:31] LABS: Anion Gap 9 (5-15); BUN 63 mg/dL (7-18); BUN/Creat Ratio 22.8 RATIO (10-20); Calcium,Total 9.2 mg/dL (8.5-10.1); Chloride 100 mmol/L (98-107); Creatinine, Serum 2.76 mg/dL (0.70-1.30); EST Glomerular Filtration Rate 24 mL/min (>60); Est Glom Filt Rate - Afr Amer 30 mL/min (>60); Glucose 84 mg/dL (74-106); Potassium 4.3 mmol/L (3.5-5.1); Sodium Level 141 mmol/L (136-145)
== END 2018-01-11 13:00 | disposition home or self-care (01) ==
LOC: LAB 12:36
PROVIDERS: Visit Provider Internal Medicine Cardiovascular Disease
DX: I48.91 Unspecified atrial fibrillation (principal)
CPT/HCPCS: 36415; 80048; 85610

== ENCOUNTER 2018-02-04 08:12 | Outpatient (RCR) | payer MEDICARE, OTHER, SELFPAY ==
[2018-01-27 09:36] LABS: Prothrombin Time (Protime)PT. 36.6 SECONDS (11.7-14.9)
[2018-01-27 09:40] LABS: International Normalized Ratio 3.7
[2018-02-04 10:10] LABS: Prothrombin Time (Protime)PT. 37.8 SECONDS (11.7-14.9)
[2018-02-04 10:20] LABS: International Normalized Ratio 3.8
== END 2018-02-04 10:00 | disposition home or self-care (01) ==
LOC: LAB 08:12
PROVIDERS: Visit Provider Internal Medicine Cardiovascular Disease
DX: I48.91 Unspecified atrial fibrillation (principal)
CPT/HCPCS: 36415; 85610

== ENCOUNTER → 2018-02-24 09:02 | Outpatient (CLI) | payer MEDICARE, OTHER, SELFPAY ==
[2018-02-24 09:35] LABS: Color, Urine Yellow (Yellow); Glucose, Dipstick Normal (Normal); Ketone-Dipstick Negative (Negative); Leukocyte Esterase-Dipstick Negative /ul (Negative); Nitrite-Dipstick Negative (Negative); Occult Blood-Urine Negative /ul (Negative); Protein-Dipstick Negative (Negative); Urine Bilirubin Dipstick Negative (Negative); Urine Clarity Clear (Clear); Urine Urobilinogen Normal (Normal)
[2018-02-24 09:41] LABS: Hematocrit 41.3 % (40-54); Hemoglobin 12.6 g/dl (13.0-16.5); Mean Corp Hgb Conc 30.5 g/gl (32-36); Mean Corpuscular Hgb 30.6 pg (27.0-32.0); Mean Corpuscular Volume 100.2 fL (80-94); Mean Platelet Vol. 10.2 fl (6.2-12.0); Platelet Count 129 K/mm3 (150-450); RBC Distribution Width CV 18.9 % (11.6-14.6); RBC Distribution Width SD 69.1 fl (35.1-43.9); Red Blood Count 4.12 M/mm3 (4.6-6.2); White Blood Count 6.1 K/mm3 (4.4-11.0)
[2018-02-24 09:44] LABS: Scan Indicated on CBC? Y/N YES- FLAGS NOTED
[2018-02-24 10:06] LABS: Albumin, Serum 3.6 g/dL (3.2-5.0); BUN 49 mg/dL (7-18); BUN/Creat Ratio 17.4 RATIO (10-20); Calcium,Total 9.7 mg/dL (8.5-10.1); Chloride 102 mmol/L (98-107); Creatinine, Serum 2.81 mg/dL (0.70-1.30); EST Glomerular Filtration Rate 24 mL/min (>60); Est Glom Filt Rate - Afr Amer 29 mL/min (>60); Ferritin 84 ng/mL (26-388); Glucose 95 mg/dL (74-106); Iron 85 ug/dL (65-175); Iron Binding Capacity,Total 539 ug/dL (250-450); Phosphorus 4.1 mg/dL (2.5-4.9); Potassium 4.7 mmol/L (3.5-5.1); Sodium Level 143 mmol/L (136-145)
[2018-02-24 10:07] LABS: Microalbumin,Random Urine < 5.0 mg/L (NO RANGE EST.); Protein, Urine (Random) < 6.0 mg/dL (<11.9)
[2018-02-25 08:49] LABS: Vitamin D,25 Hydroxy 91.9 ng/mL (29.95-100.01)
[2018-02-25 08:52] LABS: PTHIN 123.8 pg/mL (18.4-80.1)
== END ==
PROVIDERS: Visit Provider Internal Medicine Nephrology
DX: N18.3 Chronic kidney disease, stage 3 (moderate) (principal); D63.1 Anemia in chronic kidney disease; N25.81 Secondary hyperparathyroidism of renal origin; E55.9 Vitamin D deficiency, unspecified
CPT/HCPCS: 36415; 80069; 81002; 82043; 82306; 82570; 82728; 83540; 83550; 83970; 84156; 85027

== ENCOUNTER 2018-03-18 09:51 | Outpatient (RCR) | payer MEDICARE, OTHER, SELFPAY ==
[2018-02-18 09:16] LABS: International Normalized Ratio 2.3; Prothrombin Time (Protime)PT. 25.7 SECONDS (11.7-14.9)
[2018-03-04 10:03] LABS: Prothrombin Time (Protime)PT. 23.1 SECONDS (11.7-14.9)
[2018-03-18 11:30] LABS: International Normalized Ratio 1.9; Prothrombin Time (Protime)PT. 22.1 SECONDS (11.7-14.9)
== END 2018-03-18 11:00 | disposition home or self-care (01) ==
LOC: LAB 09:51
PROVIDERS: Visit Provider Internal Medicine Cardiovascular Disease
DX: I48.91 Unspecified atrial fibrillation (principal)
CPT/HCPCS: 36415; 85610

== ENCOUNTER 2018-04-15 10:00 | Outpatient (RCR) | payer MEDICARE, OTHER, SELFPAY ==
[2018-04-01 11:25] LABS: International Normalized Ratio 1.9; Prothrombin Time (Protime)PT. 22.1 SECONDS (11.7-14.9)
[2018-04-15 11:01] LABS: Absolute Lymphocyte Count 0.86 X10^3/ul (0.83-4.51); Basophil# 0.01 X10^3/uL; Basophil% 0.2 % (0-1); Eosinophil# 0.09 X10^3/uL; Eosinophils% 1.6 % (0-5); Hematocrit 39.8 % (40-54); Hemoglobin 12.4 g/dl (13.0-16.5); Lymphocyte # 0.86 X10^3/ul (4.0); Lymphocyte % 15.4 % (19-41); Mean Corp Hgb Conc 31.2 g/gl (32-36); Mean Corpuscular Volume 102.6 fL (80-94); Mean Platelet Vol. 11.2 fl (6.2-12.0); Monocyte# 0.61 X10^3/uL; Neutrophil # 3.98 X10^3/uL (2.7-7.7); Neutrophil % 71.4 % (47-70); Platelet Count 120 K/mm3 (150-450); RBC Distribution Width SD 52.1 fl (35.1-43.9); Red Blood Count 3.88 M/mm3 (4.6-6.2); White Blood Count 5.6 K/mm3 (4.4-11.0)
[2018-04-15 11:03] LABS: POSITIVE COUNT NO; POSITIVE DIFFERENTIAL NO; POSITIVE MORPHOLOGY NO
[2018-04-15 11:13] LABS: International Normalized Ratio 2.2; Prothrombin Time (Protime)PT. 24.7 SECONDS (11.7-14.9)
[2018-04-15 11:41] LABS: Anion Gap 8 (5-15); BUN 66 mg/dL (7-18); Calcium,Total 9.6 mg/dL (8.5-10.1); Chloride 98 mmol/L (98-107); EST Glomerular Filtration Rate 22 mL/min (>60); Est Glom Filt Rate - Afr Amer 27 mL/min (>60); Glucose 100 mg/dL (74-106); PSA,Total - Annual Screen 0.72 ng/mL (0.00-4.00); Potassium 4.3 mmol/L (3.5-5.1); Sodium Level 142 mmol/L (136-145); Thyroid Stim Hormone (TSH) 3.66 uIU/mL (0.358-3.74)
== END 2018-04-15 11:00 | disposition home or self-care (01) ==
LOC: LAB 10:00
PROVIDERS: Visit Provider Internal Medicine Cardiovascular Disease
DX: I48.91 Unspecified atrial fibrillation (principal)
CPT/HCPCS: 36415; 80048; 84153; 84443; 85025; 85610; G0103

== ENCOUNTER 2018-05-05 12:58 | Outpatient (RCR) | payer MEDICARE, OTHER, SELFPAY ==
[2018-05-05 13:44] LABS: International Normalized Ratio 3.2; Prothrombin Time (Protime)PT. 32.9 SECONDS (11.7-14.9)
== END 2018-05-05 14:00 | disposition home or self-care (01) ==
LOC: LAB 12:58
PROVIDERS: Referring Provider Internal Medicine Cardiovascular Disease; Visit Provider Internal Medicine Cardiovascular Disease
DX: I48.91 Unspecified atrial fibrillation (principal)
CPT/HCPCS: 36415; 85610

== ENCOUNTER 2018-05-26 08:02 | Outpatient (RCR) | payer MEDICARE, OTHER, SELFPAY ==
[2018-05-26 08:31] LABS: Hematocrit 39.9 % (40-54); Hemoglobin 12.2 g/dl (13.0-16.5); Mean Corp Hgb Conc 30.6 g/gl (32-36); Mean Corpuscular Hgb 31.4 pg (27.0-32.0); Mean Corpuscular Volume 102.6 fL (80-94); Mean Platelet Vol. 10.9 fl (6.2-12.0); Platelet Count 124 K/mm3 (150-450); RBC Distribution Width SD 56.4 fl (35.1-43.9); Red Blood Count 3.89 M/mm3 (4.6-6.2); Scan Indicated on CBC? Y/N NO; White Blood Count 5.8 K/mm3 (4.4-11.0)
[2018-05-26 08:33] LABS: Glucose, Dipstick Normal (Normal); Ketone-Dipstick Negative (Negative); Leukocyte Esterase-Dipstick Negative /ul (Negative); Nitrite-Dipstick Negative (Negative); Occult Blood-Urine Negative /ul (Negative); Protein-Dipstick Negative (Negative); Urine Bilirubin Dipstick Negative (Negative); Urine Urobilinogen Normal (Normal); Urine pH 6.5 (5.0 - 8.0)
[2018-05-26 08:37] LABS: Color, Urine Yellow (Yellow); Urine Clarity Clear (Clear)
[2018-05-26 08:56] LABS: International Normalized Ratio 2.5; Prothrombin Time (Protime)PT. 26.7 SECONDS (11.7-14.9)
[2018-05-26 09:04] LABS: Albumin, Serum 3.2 g/dL (3.2-5.0); BUN 46 mg/dL (7-18); BUN/Creat Ratio 17.8 RATIO (10-20); Calcium,Total 9.5 mg/dL (8.5-10.1); Chloride 101 mmol/L (98-107); Creatinine, Serum 2.58 mg/dL (0.70-1.30); EST Glomerular Filtration Rate 26 mL/min (>60); Est Glom Filt Rate - Afr Amer 32 mL/min (>60); Glucose 102 mg/dL (74-106); Phosphorus 3.2 mg/dL (2.5-4.9); Potassium 5.1 mmol/L (3.5-5.1); Sodium Level 139 mmol/L (136-145)
[2018-05-26 09:11] LABS: PTHIN 90.6 pg/mL (18.4-80.1)
[2018-05-26 09:26] LABS: Microalbumin,Random Urine < 5.0 mg/L (NO RANGE EST.); Protein, Urine (Random) < 6.0 mg/dL (<11.9)
== END 2018-06-17 10:55 | disposition home or self-care (01) ==
LOC: LAB 08:02
PROVIDERS: Referring Provider Internal Medicine Cardiovascular Disease; Visit Provider Internal Medicine Cardiovascular Disease
DX: I48.91 Unspecified atrial fibrillation (principal); N18.3 Chronic kidney disease, stage 3 (moderate); E55.9 Vitamin D deficiency, unspecified; N25.81 Secondary hyperparathyroidism of renal origin; D64.9 Anemia, unspecified
CPT/HCPCS: 36415; 80069; 81002; 82043; 82306; 82570; 83970; 84156; 85027; 85610

== ENCOUNTER 2018-07-15 08:47 | Outpatient (RCR) | payer MEDICARE, OTHER, SELFPAY ==
[2018-06-21 10:47] LABS: International Normalized Ratio 1.4; Prothrombin Time (Protime)PT. 16.9 SECONDS (11.7-14.9)
[2018-07-01 10:04] LABS: International Normalized Ratio 1.9
[2018-07-15 09:52] LABS: International Normalized Ratio 2.4; Prothrombin Time (Protime)PT. 26.1 SECONDS (11.7-14.9)
== END 2018-07-15 09:47 | disposition home or self-care (01) ==
LOC: LAB 08:47
PROVIDERS: Referring Provider Internal Medicine Cardiovascular Disease; Visit Provider Internal Medicine Cardiovascular Disease
DX: I48.91 Unspecified atrial fibrillation (principal)
CPT/HCPCS: 36415; 85610

== ENCOUNTER 2018-08-11 09:53 | Outpatient (RCR) | payer MEDICARE, OTHER, SELFPAY ==
[2018-08-04 09:27] LABS: International Normalized Ratio 1.3; Prothrombin Time (Protime)PT. 16.5 SECONDS (11.7-14.9)
[2018-08-11 10:26] LABS: International Normalized Ratio 1.8; Prothrombin Time (Protime)PT. 20.5 SECONDS (11.7-14.9)
--- OUTSIDE RECORDS SUMMARY | 2018-10-08 21:55 | XMS RPT_ITS ---
:1950 Author Organization OHIP Support Name Relationship Address Phone MILES, CHITRA Unavailable UNKNOWN + [place] [address] MILES, ECTOR Unavailable UNKNOWN + [place] [address] R Unavailable Unavailable Unavailable MILES, CHITRA Unavailable UNKNOWN + [place] [address] MILES, ECTOR Unavailable UNKNOWN + [place] [address] R Unavailable Unavailable Unavailable MILES, CHITRA Unavailable UNKNOWN + [place] [address] MILES, ECTOR Unavailable UNKNOWN + [place] [address] R Unavailable Unavailable Unavailable MILES, CHITRA Unavailable Unavailable + [place] [address] MILES, ECTOR Unavailable Unavailable + [place] [address] R Unavailable Unavailable Unavailable MILES, CHITRA Unavailable Unavailable + [place] [address] MILES, ECTOR Unavailable Unavailable + [place] [address] R Unavailable Unavailable Unavailable MILES, CHITRA Unavailable . + [place] [address] MILES, ECTOR Unavailable . + [place] [address] R Unavailable Unavailable Unavailable MILES, CHITRA Unavailable Unavailable + [place] [address] MILES, ECTOR Unavailable Unavailable + [place] [address] R Unavailable Unavailable Unavailable MILES, CHITRA Unavailable Unavailable + [place] [address] MILES, ECTOR Unavailable Unavailable + [place] [address] R Unavailable Unavailable Unavailable MILES, CHITRA Unavailable Unavailable + [place] [address] MILES, ECTOR Unavailable Unavailable + [place] [address] R Unavailable Unavailable Unavailable MILES, CHITRA Unavailable Unavailable + [place] [address] MILES, ECTOR Unavailable Unavailable + [place] [address] R Unavailable Unavailable Unavailable MILES, CHITRA Unavailable [address] + [place] [address] MILES, ECTOR Unavailable [address] + [place] [address] R Unavailable Unavailable Unavailable MILES, CHITRA Unavailable [address] + [place] [address] MILES, ECTOR Unavailable [address] + [place] [address] R Unavailable Unavailable Unavailable MILES, CHITRA Unavailable [address] + [place] [address] MILES, ECTOR Unavailable [address] + [place] [address] R Unavailable Unavailable Unavailable MILES, CHITRA Unavailable Unavailable + [place] [address] MILES, ECTOR Unavailable Unavailable + [place] [address] R Unavailable Unavailable Unavailable MILES, CHITRA Unavailable Unavailable + [place] [address] MILES, ECTOR Unavailable Unavailable + [place] [address] R Unavailable Unavailable Unavailable MILES, CHITRA Unavailable Unavailable + [place] [address] MILES, CETOR Unavailable Unavailable + [place] [address] R Unavailable Unavailable Unavailable MILES, CHITRA Unavailable Unavailable + [place] [address] MILES, ECTOR Unavailable Unavailable + [place] [address] R Unavailable Unavailable Unavailable MILES, CHITRA Unavailable Unavailable + [place] [address] MILES, ECTOR Unavailable Unavailable + [place] [address] R Unavailable Unavailable Unavailable MILES, CHITRA Unavailable Unavailable + [place] [address] MILES, ECTOR Unavailable Unavailable + [place] [address] R Unavailable Unavailable Unavailable MILES, CHITRA Unavailable Unavailable + [place] [address] MILES, ECTOR Unavailable Unavailable + [place] [address] R Unavailable Unavailable Unavailable MILES, CHITRA Unavailable Unavailable + [place] [address] MILES, ECTOR Unavailable Unavailable + [place] [address] R Unavailable Unavailable Unavailable MILES, CHITRA Unavailable Unavailable + [place] [address] MILES, ECTOR Unavailable Unavailable + [place] [address] R Unavailable Unavailable Unavailable MILES, CHITRA Unavailable Unavailable + [place] [address] MILES, ECTOR Unavailable Unavailable + [place] [address] R Unavailable Unavailable Unavailable MILES, CHITRA Unavailable / + [place] [address] MILES, ECTOR Unavailable . + [place] [address] R Unavailable Unavailable Unavailable MILES, CHITRA Unavailable / + [place] [address] MILES, ECTOR Unavailable . + [place] [address] R Unavailable Unavailable Unavailable MILES, CHITRA Unavailable / + fba[place] [address] MILES, ECTOR Unavailable Unavailable + [place] [address] R Unavailable Unavailable Unavailable MILES, CHITRA Unavailable / + [place] [address] MILES, ECTOR Unavailable Unavailable + [place] [address] R Unavailable Unavailable Unavailable MILES, CHITRA Unavailable / + [place] [address] MILES, ECTOR Unavailable Unavailable + [place] [address] R Unavailable Unavailable Unavailable MILES, CHITRA Unavailable / + [place] [address] MILES, ECTOR Unavailable Unavailable + [place] [address] R Unavailable Unavailable Unavailable Care Team Providers Name Role Phone Brent Torres Attending Unavailable Brent Torres Referring Unavailable Yony, Tyrone Primary Care Unavailable Bakhous, Aziz Consulting Unavailable Brent Torres Attending Unavailable Yony, Tyrone Referring Unavailable Brent Torres Attending Unavailable Brent Torres Referring Unavailable Yony, Tyrone Primary Care Unavailable Kittoe, Radu Consulting Unavailable Lalo Saul Attending Unavailable DreinLalo Referring Unavailable Yony, Tyrone Primary Care Unavailable Brent Torres Attending Unavailable Brent Torres Referring Unavailable Yony, Tyrone Primary Care Unavailable Kittoe, Radu Consulting Unavailable Claudia Bradley Attending Unavailable Yony, Tyrone Referring Unavailable Brent Torres Attending Unavailable Balbir, Brent Referring Unavailable Yony, Tyrone Primary Care Unavailable Kittoe, Radu Consulting Unavailable Claudia Bradley Attending Unavailable Yony, Tyrone Referring Unavailable Yony, Tyrone Primary Care Unavailable Bakhous, Alyiz Attending Unavailable Bakhous, Aziz Referring Unavailable Yony, Tyrone Primary Care Unavailable Yony, Tyrone Primary Care Unavailable Charli, Keagan Admitting Unavailable Bakhous, Aziz Consulting Unavailable Des Mota Attending Unavailable Brent Torres Consulting Unavailable Charli, Keagan Admitting Unavailable Charli, Keagan Attending Unavailable Yony, Tyrone Primary Care Unavailable Bakhous, Aziz Consulting Unavailable Charli, Keagan Consulting Unavailable Charli, Keagan Admitting Unavailable Brent Torres Attending Unavailable Yony, Tyrone Primary Care Unavailable Bakhous, Aziz Consulting Unavailable Brent Torres Consulting Unavailable Tereletsky, Des Consulting Unavailable Charli, Keagan Admitting Unavailable Des Mota Attending Unavailable Yony, Tyrone Primary Care Unavailable Bakhous, Aziz Consulting Unavailable Brent Torres Consulting Unavailable Tereletsky, Des Consulting Unavailable Charli, Keagan Admitting Unavailable Brent Torres Attending Unavailable Yony, Tyrone Primary Care Unavailable Bakhous, Aziz Consulting Unavailable Brent Torres Consulting Unavailable Tereletsky, Des Consulting Unavailable Charli, Keagan Admitting Unavailable Des Mota Attending Unavailable Yony, Tyrone Primary Care Unavailable Bakhous, Aziz Consulting Unavailable Brent Torres Consulting Unavailable Tereletsky, Des Consulting Unavailable Charli, Keagan Admitting Unavailable Eros Kumar Attending Unavailable Yony, Tyrone Primary Care Unavailable Bakhous, Aziz Consulting Unavailable Brent Torres Consulting Unavailable Tereletsky, Des Consulting Unavailable Charli, Keagan Admitting Unavailable TerkarenkyDes Attending Unavailable Yony, Tyrone Primary Care Unavailable Bakhous, Aziz Consulting Unavailable Brent Torres Consulting Unavailable Tereletsky, Des Consulting Unavailable Brent Torres Attending Unavailable Brnet Torres Referring Unavailable Yony, Tyrone Primary Care Unavailable Bakhous, Aziz Consulting Unavailable Kari, Jayaprakash Consulting Unavailable Brent Torres Attending Unavailable Brent Torres Referring Unavailable Yony, Tyrone Primary Care Unavailable Bakhous, Aziz Consulting Unavailable Kari, Jayaprakash Consulting Unavailable Claudia Bradley Attending Unavailable Yony, Tyrone Referring Unavailable Tony Medrano Attending Unavailable Yony, Tyrone Referring Unavailable Yony, Tyrone Primary Care Unavailable Brent Torres Attending Unavailable Brent Torres Referring Unavailable Yony, Tyrone Primary Care Unavailable Bakhous, Alyiz Attending Unavailable Bakhous, Aziz Referring Unavailable Yony, Tyrone Primary Care Unavailable Brent Torres Attending Unavailable Brent Torres Referring Unavailable Yony, Tyrone Primary Care Unavailable Brent Torres Attending Unavailable Brent Torres Referring Unavailable Yony, Tyrone Primary Care Unavailable Claudia Bradley Attending Unavailable Yony, Tyrone Referring Unavailable Brent Torres Attending Unavailable Brent Torres Referring Unavailable Yony, Tyrone Primary Care Unavailable Bakhous, Aziz Consulting Unavailable Brent Torres Attending Unavailable Brent Torres Referring Unavailable Yony, Tyrone Primary Care Unavailable Bakhous, Aziz Consulting Unavailable Yony, Tyrone Primary Care Unavailable Charli, Keagan Admitting Unavailable Tanphaichitr, Natthavat Consulting Unavailable Radu Rae Attending Unavailable Brent Torres Consulting Unavailable PROBLEMS PROBLEMS DATE TYPE CONDITION / CODE ATTENDING STATUS SOURCE Unknown I48.91 - Unspecified Brent Torres Active [facility] atrial fibrillation / Community I48.91(ICD-10) Hospital Repository Unknown N18.3 - Chronic kidney Brent Torres Active [facility] disease, stage 3 Community (moderate) / Hospital N18.3(ICD-10) Repository Unknown I48.92 - Unspecified Brent Torres Active [facility] atrial flutter / Community I48.92(ICD-10) Hospital Repository Unknown Z95.810 - Presence of Claudia Bradley Active [place] [facility] automatic (implantable) [facility] cardiac defibrillator / Hospital Z95.810(ICD-10) Repository Unknown I25.5 - Ischemic Claudia Bradley Active [place] 8 cardiomyopathy / Community I25.5(ICD-10) Hospital Repository Unknown I48.2 - Chronic atrial Claudia Bradley Active [place] 8 fibrillation / Community I48.2(ICD-10) Hospital Repository Unknown I50.9 - Heart failure, Claudia Bradley Active [facility] unspecified / Community I50.9(ICD-10) Hospital Repository Unknown D50.9 - Iron deficiency Brent Torres Active [place] 8 anemia, unspecified / Community D50.9(ICD-10) Hospital Repository Unknown E03.9 - Hypothyroidism, Brent Torres Active [place] 8 unspecified / Community E03.9(ICD-10) Hospital Repository Unknown Z12.5 - Encounter for Balbir Brent Active [place] 8 screening for malignant Community neoplasm of prostate / Hospital Z12.5(ICD-10) Repository Unknown E55.9 - Vitamin D Chari Downey Active [facility] 8 deficiency, unspecified Community / E55.9(ICD-10) Hospital Repository Unknown N25.81 - Secondary Chari Downey Active [facility] hyperparathyroidism of Community renal origin / Hospital N25.81(ICD-10) Repository Unknown D64.9 - Anemia, Chari Downey Active [place] [facility] unspecified / Community D64.9(ICD-10) Hospital Repository Unknown I48.1 - Persistent Brent Torres Active [place] 8 atrial fibrillation / Community I48.1(ICD-10) Hospital Repository PROCEDURES PROCEDURES No Procedure Records FoundRESULTS RESULTS PACEMAKER CHECK Observed: 08/12/2018 Status: F Source: [place] 9:08 AM [facility] REPOSITORY [facility] [address] [place], [place] [address]. [address] [place] [address] Pacemaker Check Date of Service: 08/11/18 1147 MR#: [id number] Acct: [id number] Name: MOE CAMEJO Rep #: [id number] : 1950 From: Claudia Bradley Age/Sex: 67/M Location: [facility] Status: Signed Billing Codes ICD Device Billing: ICD Dev Prog Eval, Dual 08/11/18 1152 <Electronically signed by Claudia Bradley > Date Claudia Bradley 08/12/18 0908<Electronically signed by Brent Torres MD> Cosigner Signature: Date (if applicable) Brent Torres MD CC: CARDIOLOGY VISIT Observed: 08/11/2018 Status: F Source: [place] REPORT 11:08 AM [facility] REPOSITORY [facility] [address] [place] [address]. [address] [place] [address] OFFICE VISIT Date of Service: 08/11/18 MR#: [id number] Acct: [id number] Name: MOE CAMEJO Rep #: [id number] : 1950 Provider: Brent Torres MD Age/Sex: 67/M Location: [facility] Status: Signed HPI HPI Chief Complaint: Routine f/u Details: MOE CAMEJO is a 67 M who presents to the office today for a cardiovascular outpatient follow-up. He has history of ischemic cardiomyopathy, coronary artery disease, status post AICD placement, and asymptomatic chronic persistent atrial fibrillation with previous Coumadin therapy. Overall, he feels very well. Pt denies chest, arm, jaw, or neck discomfort. His exercise tolerance is stable. Pt denies symptoms of palpitations, lightheadedness, dizziness, near syncopal or syncopal episodes. Pt denies edema. Pt. denies orthopnea, PND, fever, chills, blood in urine, blood in stool, myalgia, or unexplainable fatigue. He states SOB with activity that has not worsened. He denies any lower extremity edema despite a mild weight gain. He wears chronic oxygen at 3 liters. He is awaiting being scheduled for AICD battery replacement as he is approaching [facility]. He has had no defibrillator discharges. He is compliant with his medications per In our office today's blood pressure is 120/60, pulse is 88 and regular. His physical exam is as below. His lipids as of 12/02/17 show an LDL of 52 and an HDL of 22. Intake Vital Signs08/11/18 Height 5 ft 7 in 08/11/18 Weight: 227 lb 08/11/18 Body Mass Index (BMI) 35.5 08/11/18 Blood Pressure 120/60 Intake Visit Reasons: 6 M FU ICD check @ 10:30am Tack Cleaner Required: No Is patient in pain?: No Allergies No Known Allergies Allergy (Verified 08/11/18 10:52) Medications Albuterol IH (ProAir) [Proair Hfa] 1 - 2 puff INHALATION Q4H PRN PRN 12/01/17 [History Confirmed 08/11/18] Amiodarone HCl 200 mg PO DAILY 12/01/17 [History Confirmed 08/11/18] Aspirin E.C. [Ecotrin] 81 mg PO DAILY@0800 12/01/17 [History Confirmed 08/11/18] Budesonide/Formoterol 160/4.5 [Symbicort 160/4.5 Mcg Inhaler (SP)] 1 puff INHALATION BID 12/01/17 [History Confirmed 08/11/18] Ezetimibe [Zetia] 10 mg PO QHS 12/01/17 [History Confirmed 08/11/18] Fenofibrate Nanocrystallized [Fenofibrate] 145 mg PO QHS 12/01/17 [History Confirmed 08/11/18] Isosorbide Dinitrate 5 mg PO TID 12/01/17 [History Confirmed 08/11/18] Levothyroxine Sodium 112 mcg PO DAILY 12/01/17 [History Confirmed 08/11/18] Potassium Chloride [K-Dur] 10 meq PO BID 12/01/17 [History Confirmed 08/11/18] Rosuvastatin Calcium [Crestor] 40 mg PO QHS 12/01/17 [History Confirmed 08/11/18] Tamsulosin HCl [Flomax] 0.4 mg PO DAILY 12/01/17 [History Confirmed 08/11/18] Tiotropium [place] [Spiriva Respimat] 2 puff INHALATION BID 12/01/17 [History Confirmed 08/11/18] hydrALAZINE [Apresoline] 25 mg PO BID 12/01/17 [History Confirmed 08/11/18] Ferrous Sulfate 325 mg PO TIDCM #1 tab 12/04/17 [Rx Confirmed 08/11/18] spironolactone 25 mg tablet 25 mg PO DAILY #30 tab 12/29/17 [Rx Confirmed 08/11/18] furosemide 20 mg tablet 60 mg PO BID tab 01/31/18 [History Confirmed 08/11/18] carvedilol 25 mg tablet 25 mg PO BID #180 tab 05/20/18 [Rx Confirmed 08/11/18] warfarin 3 mg tablet 3 mg PO DAILY #90 tab 07/29/18 [Rx Confirmed 08/11/18] calcitriol 0.25 mcg capsule 0.25 mcg PO DAILY cap 08/11/18 [History Confirmed 08/11/18] Ejection fraction %: 10 to 14 [facility] Medical History Atherosclerotic heart disease of tribal coronary artery without angina pectoris (Chronic) Chronic systolic (congestive) heart failure (Chronic) half-way (current) use of anticoagulants (Chronic) History of stent insertion of renal artery (Chronic) Anemia (Chronic) Bilateral atelectasis (Chronic) Respiratory failure with hypoxia and hypercapnia (Chronic) Peripheral arterial occlusive disease (Chronic) Pleural effusion (Chronic) Ischemic cardiomyopathy (Chronic) Chronic anticoagulation (Chronic) Pulmonary hypertension (Chronic) Atrial fibrillation (Chronic) Hyperlipemia (Chronic) COPD (chronic obstructive pulmonary disease) (Chronic) Hypertension (Chronic) Urine retention (Chronic) BPH (benign prostatic hypertrophy) (Chronic) Hypothyroidism (Chronic) Former smoker, stopped smoking in distant past (Chronic) Pacemaker (Chronic) Diverticulosis (Chronic) Left renal artery stenosis (Chronic) Acute kidney injury on CKD stage III (Resolved) Acute kidney injury superimposed on chronic kidney disease (Resolved) Acute on chronic combined severe HF (Resolved) Acute on chronic respiratory failure with hypoxia and hypercapnia (Resolved) Acute systolic congestive heart failure (Resolved) Anasarca (Resolved) Warfarin-induced coagulopathy (Resolved) Surgical History History of stent insertion of renal artery (Chronic 03/14/08) Stented coronary artery (Chronic 12/27/13) Status post aortobifemoral bypass surgery (Chronic 04/25/01) AICD (automatic cardioverter/defibrillator) present (Chronic) Family History Father CAD (coronary artery disease) Mother CAD (coronary artery disease) Brother CAD (coronary artery disease) Hypertension Sister CAD (coronary artery disease) Hypertension Social History Smoking Status: Former smoker alcohol intake: never caffeine: Yes Type: coffee ROS Const Const: Positive for other (States feels much better since had blood transfusion. ); negative for fatigue, weakness, body ache, fever(s), headache(s), chills, frequent falls, night sweats, daytime sleepiness, difficulty sleeping, excessive sweating, weight gain, weight loss, increased appetite, poor appetite or anorexia Eyes Eyes: Negative for blind spots, loss of peripheral vision, transient loss of vision, blurry vision, change in vision, double vision, floaters, tunnel vision or other ENT ENT: Negative for headache(s), dizziness, hearing loss, tinnitus, Nosebleed/epistaxis, balance problems, post nasal drip, lip swelling, tongue swelling, bleeding gums, hoarseness, neck pain, dry mouth or other Cardio Chest Pain: No Palpitations: No Edema: None Muscle aches with walking: None Resp Respiratory: Positive for SOB with activity (On oxygen 3 liters continuous, doing well with that.) and Cough (occasional); negative for SOB at rest, SOB orthopnea\SOB lying down, Coughing up blood/hemoptysis, chest congestion, pain on inspiration, snoring, stridor, wheezing, crackles, paroxysmal nocturnal dyspnea or other GI GI: Negative nausea, vomiting, heartburn, constipation, belching, bloating, cramping, vomiting blood/hematemesis, bright, red blood in stools, black,tarry stools, loose stools, Difficulty Swallowing or other : Negative for hematuria, frequent nighttime urination/ nocturia, erectile dysfunction or abnormal vaginal bleeding Musc Musc: Negative for balance problems, muscle aches/ myalgia, muscle weakness or joint pain Skin Skin: Negative redness, non-healing lesions, rash, unusual bruising, skin ulcer, wounds, jaundice or other Neuro Neuro: Negative for weakness, headache(s), frequent falls, blurry vision, double vision, dizziness, lightheadedness, near syncope, syncope, orthostatic symptoms, confusion, memory loss, restless legs, vertigo, seizures, lack of coordination or other Jeremy Hematologic/Lymphatic: Negative for easy bleeding, easy bruising, enlarged lymph nodes or other Endo Endo: Negative for fatigue, excessive sweating, cold intolerance, heat intolerance, flushing, increased thirst/drinking, increased hunger, hair loss, hair growth or other Psych Psych: Negative for anxiety, depression, thoughts of harming anyone, thoughts of harming yourself, visual hallucinations, panic attacks or audible hallucinations Allergy Allergy/Immunology: Negative for lip swelling, Negative for tongue swelling, Negative for rash, Negative for throat swelling, Negative for hives Cardiology Exam Const Appearance: cooperative, healthy appearing and no acute distress Nutritional Appearance: well nourished Orientation: alert, oriented x3 and oriented to person Head Head: normal to inspection, atraumatic and normocephalic Nose: external nose normal Face and Sinus: face symmetric Mouth: oral mucosae normal Eyes General: appearance normal, both eyes and all related structures Eyelids: eyelids normal Conjunctivae: conjunctivae normal Pupils: PERRL and normal by confrontation EOM: EOM intact bilaterally Neck Neck: normal visual inspection and full ROM Carotids: normal carotid upstroke Chest Chest inspection: normal inspection of the chest Auscultation: Bilateral: Clear to Auscultation Cardio Palpation: normal PMI Rate: regular rate Rhythm: regular rhythm Heart sounds: S2 normal Murmur: Grade 2/6 and holosystolic GI GI: normal to inspection, no hepatosplenomegaly and bowel sounds present Neuro General: alert, oriented x3, awake, CN's II-XI intact bilaterally and moves all extremities Skin Skin: no rashes or lesions noted Extremities Pulses: Normal: Right Femoral Pulse, Left Femoral Pulse, Right Dorsalis Pedis Pulse, Left Dorsalis Pedis Pulse, Right Posterior Tibial Pulse, Left Posterior Tibial Pulse, Right Radial Pulse, Left Radial Pulse Lower Extremity Edema: None: Bilateral Psych Psychological: normal affect Assessment AND Plan 1. Atherosclerotic heart disease of tribal coronary artery without angina pectoris I25.10 Plan 1. Coronary artery disease: No anginal symptoms at this time. His exercise capacity has remained about the same, and requires chronic O2 therapy without any increases or setbacks. His blood pressure and heart rate are under excellent control. At this point I would recommend continuing baby aspirin, Coreg, Lasix, hydralazine, Isordil and spironolactone. We will repeat his lipid profile when he comes in for his CAITLIN evaluation. 2. Chronic systolic (congestive) heart failure I50.22 Plan 2. Ischemic cardiomyopathy: The patient has ischemic cardiomyopathy status post AICD placement requiring battery exchange due to CAITLIN. He is [place] heart classification 2 at this time. He has no edema and has no abdominal bloating, orthopnea or PND. Recommend continuing his antihypertensive and diuretic therapy as outlined in the MRF. I advised the patient to maintain a 1500 cc/day fluid limitation. 3. Pulmonary hypertension I27.20 Plan 3. Pulmonary hypertension: Patient has severe pulmonary hypertension as evidenced by his echocardiogram. Have recommended that he continue antihypertensive, nitrate based therapy, and diuretic based therapy. He remains on chronic O2 therapy. 4. Return office in 6 months. This note was generated using a voice recognition system and there may be incorrect words, spelling or punctuation that were not noted when reviewing the office note prior to saving. Plan Detail Follow Up +6M (Tor[place]) Coding Level of Care Code Off vis,est,level 3 Diagnoses Atherosclerotic heart disease of tribal coronary artery without angina pectoris I25.10 Chronic systolic (congestive) heart failure I50.22 Pulmonary hypertension I27.20 Coding Level of Care Code Off vis,est,level 3 Diagnoses Atherosclerotic heart disease of tribal coronary artery without angina pectoris I25.10 Chronic systolic (congestive) heart failure I50.22 Pulmonary hypertension I27.20 Supplemental Info Supplemental Information Labs LDL Cholesterol 52 mg/dL (0-130) 12/02/17 HDL Cholesterol 22 mg/dL (40-) L 12/02/17 Triglycerides 120 mg/dL (-199) 12/02/17 VLDL Cholesterol 24 mg/dL (5-40) 12/02/17 Diagnostics Electrocardiogram 12/01/17 Echocardiogram 12/03/17 Stress Test Nuclear Medicine 04/02/16 Pacemaker Check 05/12/18 Cardiac Catheterization 06/26/16 Chest X-Ray 12/02/17 Pulmonary Pulmonary Function Test 05/12/16 Pulmonary Exercise Test 05/14/16 08/11/18 1108 <Electronically signed by Brent Torres MD> Date Brent Torres MD Cosigner Signature: Date (if applicable) CC: Tyrone Dean PROTHROMBIN TIME W/INR Collected: 08/11/2018 Status: F Source: [place] 9:55 AM [facility] REPOSITORY TYPE CODE TESTS RESULT OUT OF RANGE REFERENCE UNITS LAB L300.4150 11.7-14.9 SECONDS High PROTIME 20.5 LAB L300.4200 Normal INR 1.8 Performed By: #### L300.3900 #### [facility] [address] [place], [place], [address] PROTHROMBIN TIME W/INR Collected: 08/04/2018 Status: F Source: [place] 8:50 AM [facility] REPOSITORY TYPE CODE TESTS RESULT OUT OF RANGE REFERENCE UNITS LAB L300.4150 11.7-14.9 SECONDS High PROTIME 16.5 LAB L300.4200 Normal INR 1.3 Performed By: #### L300.3900 #### [facility] [address] [place], [address] PROTHROMBIN TIME W/INR Collected: 07/15/2018 Status: F Source: [place] 8:51 AM [facility] REPOSITORY TYPE CODE TESTS RESULT OUT OF RANGE REFERENCE UNITS LAB L300.4150 11.7-14.9 SECONDS High PROTIME 26.1 LAB L300.4200 Normal INR 2.4 Performed By: #### L300.3900 #### [facility] [address] [place], [address] PROTHROMBIN TIME W/INR Collected: 07/01/2018 Status: F Source: [place] 8:09 AM [facility] REPOSITORY TYPE CODE TESTS RESULT OUT OF RANGE REFERENCE UNITS LAB L300.4150 11.7-14.9 SECONDS High PROTIME 22.0 LAB L300.4200 Normal INR 1.9 Performed By: #### L300.3900 #### [facility] [address] [place], [place], [id number] PROTHROMBIN TIME W/INR Collected: 06/21/2018 Status: F Source: [place] 9:09 AM [facility] REPOSITORY TYPE CODE TESTS RESULT OUT OF RANGE REFERENCE UNITS LAB L300.4150 11.7-14.9 SECONDS High PROTIME 16.9 LAB L300.4200 Normal INR 1.4 Performed By: #### L300.3900 #### [facility] [address] [place], [place], [id number] CBC-COMPLETE BLOOD CNT Collected: 05/26/2018 Status: F Source: [place] NO DIFF 8:06 AM [facility] REPOSITORY Order Comment: INR FOR DR TORRES TYPE CODE TESTS RESULT OUT OF RANGE REFERENCE UNITS LAB L100.1000 4.4-11.0 K/mm3 Normal WBC 5.8 LAB L100.1200 4.6-6.2 M/mm3 Low RBC 3.89 LAB L100.1300 13.0-16.5 g/dl Low HGB 12.2 LAB L100.1400 40-54 % Low HCT 39.9 LAB L100.1500 80-94 fL High MCV 102.6 LAB L100.1600 27.0-32.0 pg Normal MCH 31.4 LAB L100.1700 32-36 g/gl Low MCHC 30.6 LAB L100.1810 11.6-14.6 % High RDW CV 15.0 LAB L100.1820 35.1-43.9 fl High RDW SD 56.4 LAB L100.1900 150-450 K/mm3 Low PLT 124 LAB L100.2000 6.2-12.0 fl Normal MPV 10.9 Performed By: #### L100.0500 #### [facility] [address] [place], [place], [id number] URINALYSIS, ROUTINE Collected: 05/26/2018 Status: F Source: [place] (DIPSTICK) 8:06 AM [facility] REPOSITORY Order Comment: INR FOR DR TORRES How was Urine Obtained? CLEAN CATCH TYPE CODE TESTS RESULT OUT OF RANGE REFERENCE UNITS LAB L400.3000 Yellow COLOR Normal Yellow LAB L400.3050 Clear Normal CLARITY Clear LAB L400.3200 Normal mg/dl Normal GLUCOSE, UR Normal LAB L400.3300 Negative mg/dL Normal BILIRUBIN URINE Negative LAB L400.3400 Negative mg/dl Normal KETONE UR Negative LAB L400.3465 1.002-1.030 Normal SP.GR. DIPSTX 1.010 LAB L400.3550 5.0 - 8.0 pH UR Normal 6.5 LAB L400.3600 Negative mg/dl PROT Normal DIPSTX Negative LAB L400.3700 Normal mg/dl Normal UROBILI Normal LAB L400.3750 Negative Normal NITRITE UR Negative LAB L400.3780 Negative /ul Normal OCCULT BLOOD-UR Negative LAB L400.3800 Negative /ul LEUK Normal ESTERASE Negative Performed By: #### L400.2010 #### [facility] [address] [place], [place], [address] PROTHROMBIN TIME W/INR Collected: 05/26/2018 Status: F Source: [place] 8:06 AM [facility] REPOSITORY Order Comment: INR FOR DR TORRES TYPE CODE TESTS RESULT OUT OF RANGE REFERENCE UNITS LAB L300.4150 11.7-14.9 SECONDS High PROTIME 26.7 LAB L300.4200 Normal INR 2.5 Performed By: #### L300.3900 #### [facility] [address] [place], [place], [address] RENAL PROFILE Collected: 05/26/2018 Status: F Source: [place] 8:06 [facility] REPOSITORY Order Comment: INR FOR TORRES TYPE CODE TESTS RESULT OUT OF RANGE REFERENCE UNITS LAB L501.0100 74-106 mg/dL Normal GLU 102 Result Comment: Fasting Glucose result from 100 to 125 mg/dL suggests IMPAIRED HOMEOSTASIS per A.D.A. criteria. Please note revised GLUCOSE reference range effective 2017. LAB L501.1000 7-18 mg/dL High BUN 46 LAB L501.1100 0.70-1.30 mg/dL High CREAT,SERUM 2.58 Result Comment: The validity of the calculated GFR AND GFRAA in patients over 70 years has not been determined. Clinical correlation is essential. LAB L501.1110 >60 mL/min Low EST GFR 26 Result Comment: Non- GFR Calc LAB L501.1115 >60 mL/min Low EST GFR - AA 32 Result Comment: GFR Calc LAB L501.1300 10-20 RATIO Normal BUN/CRE 17.8 LAB L501.1800 3.2-5.0 g/dL Normal ALB 3.2 LAB L501.2200 8.5-10.1 mg/dL CA Normal 9.5 LAB L501.2300 2.5-4.9 mg/dL Normal PHOS 3.2 LAB L501.5300 136-145 mmol/L NA Normal 139 LAB L501.5600 3.5-5.1 mmol/L K Normal 5.1 LAB L501.5900 98-107 mmol/L CL Normal 101 LAB L501.6100 21.0-32.0 mmol/L High CO2 34.0 Performed By: #### L500.3600 #### [facility] [address] [place], [place], [address] VITAMIN D,25 HYDROXY Collected: 05/26/2018 Status: F Source: [place] 8:06 AM [facility] REPOSITORY Order Comment: INR FOR DR TORRES TYPE CODE TESTS RESULT OUT OF RANGE REFERENCE UNITS LAB L506.1000 29.95-100.01 ng/mL Normal Vitamin D 94.0 25-OH Result Comment: Vitamin D 25(OH) Status Range Deficiency <20 ng/mL (50nmol/L) Insuffciency 20 - 30 ng/mL (50 - 75 nmol/L) Sufficiency 30 - 100 ng/mL (75 - 250 nmol/L) Toxicity >100 ng/mL (>250 nmol/L) Performed By: #### L506.1000 #### [facility] [address] [place], [address] PTHIN Collected: 05/26/2018 Status: F Source: [place] 8:06 AM [facility] REPOSITORY Order Comment: INR FOR DR TORRES TYPE CODE TESTS RESULT OUT OF RANGE REFERENCE UNITS LAB L509.1000 18.4-80.1 pg/mL High PTHIN 90.6 Performed By: #### L509.1000 #### [facility] [address] [place], [address] PROTEIN+CREATININE Collected: Status: F Source: [place] HOLDER,URINE 05/26/2018 8:06 AM [facility] REPOSITORY Order Comment: INR FOR DR TORRES TYPE CODE TESTS RESULT OUT OF RANGE REFERENCE UNITS LAB L501.1200 NO RANGE EST. mg/dL 19.40 Normal UR CREAT LAB L501.1930 <11.9 mg/dL < 6.0 Normal PROTEIN,UR. RAN. LAB L501.1940 0-200 mg/g CRE Test Normal not performed PROT:CRE RATIO Performed By: #### L501.0900, L502.0250 #### [facility] [address] [place], [address] MICROALB:CREAT Collected: 05/26/2018 Status: F Source: [place] HOLDER,RANDOM UR 8:06 AM [facility] REPOSITORY Order Comment: INR FOR DR TORRES TYPE CODE TESTS RESULT OUT OF RANGE REFERENCE UNITS LAB L502.0500 NO RANGE EST. mg/L < 5.0 Normal MICROALBUMI N,UR LAB L502.0600 <30 mg/g CRE mg/g CRE Test Normal not performed MALB:CREAT Performed By: #### L501.0900, L502.0250 #### [facility] [address] [place], [address] PACEMAKER CHECK Observed: 05/12/2018 Status: F Source: [place] 3:39 PM [facility] REPOSITORY [facility] [address] [place], [place] [address] [place] [address] Pacemaker Check Date of Service: 05/12/18 1433 MR#: [id number] Acct: [id number] Name: NELLMOE Brenda Rep #: [id number] : 1950 From: Claudia Bradley Age/Sex: 67/M Location: [facility] Status: Signed Billing Codes ICD Device Billing: ICD Dev Prog Eval, Dual 05/12/18 1436 <Electronically signed by Claudia Bradley > Date Claudia Bradley 05/12/18 1539<Electronically signed by Brent Torres MD> Abhisheknimishakeith Signature: Date (if applicable) Brent Torres MD CC: PROTHROMBIN TIME W/INR Collected: 05/05/2018 Status: F Source: [place] 1:03 PM [facility] REPOSITORY TYPE CODE TESTS RESULT OUT OF RANGE REFERENCE UNITS LAB L300.4150 11.7-14.9 SECONDS High PROTIME 32.9 LAB L300.4200 Normal INR 3.2 Performed By: #### L300.3900 #### [facility] [address] [place], [place], [address] CBC W/DIFF, AUTOMATED Collected: 04/15/2018 Status: F Source: [place] 10:19 AM [facility] REPOSITORY Order Comment: DR TORRES GETS INR, DR DEAN GETS RESULTS FOR TSH,BMP,PSA,CBCD TYPE CODE TESTS RESULT OUT OF RANGE REFERENCE UNITS LAB L100.1000 4.4-11.0 K/mm3 Normal WBC 5.6 LAB L100.1200 4.6-6.2 M/mm3 Low RBC 3.88 LAB L100.1300 13.0-16.5 g/dl Low HGB 12.4 LAB L100.1400 40-54 % Low HCT 39.8 LAB L100.1500 80-94 fL High MCV 102.6 LAB L100.1600 27.0-32.0 pg Normal MCH 32.0 LAB L100.1700 32-36 g/gl Low MCHC 31.2 LAB L100.1810 11.6-14.6 % Normal RDW CV 14.0 LAB L100.1820 35.1-43.9 fl High RDW SD 52.1 LAB L100.1900 150-450 K/mm3 Low PLT 120 LAB L100.2000 6.2-12.0 fl Normal MPV 11.2 LAB L100.2100 47-70 % High NEUT% 71.4 LAB L100.2200 19-41 % Low LY% 15.4 LAB L100.2300 0-10 % High MONO% 11.0 LAB L100.2400 0-5 % Normal EO% 1.6 LAB L100.2500 0-1 % Normal BASO% 0.2 LAB L100.2550 0.0-0.9 % Normal IM GRAN % 0.400 Result Comment: IG% - Immature Granulocytes (promyelocytes, myelocytes and metamyelocytes) > 1% indicates that a LEFT SHIFT is Present. LAB L100.2620 2.0-7.7 X10 3/uL Normal Absolute Neut 4.0 LAB L100.2720 0.83-4.51 X10 3/ul Normal Absolute Lymph 0.86 Performed By: #### L100.0100 #### [facility] [address] [place], [address] PROTHROMBIN TIME W/INR Collected: 04/15/2018 Status: F Source: [place] 10:19 AM [facility] REPOSITORY Order Comment: DR TORRES GETS INR, DR DEAN GETS RESULTS FOR TSH,BMP,PSA,CBCD TYPE CODE TESTS RESULT OUT OF RANGE REFERENCE UNITS LAB L300.4150 11.7-14.9 SECONDS High PROTIME 24.7 LAB L300.4200 Normal INR 2.2 Performed By: #### L300.3900 #### [facility] [address] [place], [address] BASIC METABOLIC Collected: 04/15/2018 Status: F Source: [place] PROFILE (BMP) 10:19 AM [facility] REPOSITORY Order Comment: DR TORRES GETS INR, DR DEAN GETS RESULTS FOR TSH,BMP,PSA,CBCD TYPE CODE TESTS RESULT OUT OF RANGE REFERENCE UNITS LAB L501.0100 74-106 mg/dL Normal GLU 100 Result Comment: Fasting Glucose result from 100 to 125 mg/dL suggests IMPAIRED HOMEOSTASIS per A.D.A. criteria. Please note revised GLUCOSE reference range effective 2017. LAB L501.1000 7-18 mg/dL High BUN 66 LAB L501.1100 0.70-1.30 mg/dL High CREAT,SERUM 3.00 Result Comment: The validity of the calculated GFR AND GFRAA in patients over 70 years has not been determined. Clinical correlation is essential. LAB L501.1110 >60 mL/min Low EST GFR 22 Result Comment: Non- GFR Calc LAB L501.1115 >60 mL/min Low EST GFR - AA 27 Result Comment: GFR Calc LAB L501.1300 10-20 RATIO High BUN/CRE 22.0 LAB L501.2200 8.5-10.1 mg/dL CA Normal 9.6 LAB L501.5300 136-145 mmol/L NA Normal 142 LAB L501.5600 3.5-5.1 mmol/L K Normal 4.3 LAB L501.5900 98-107 mmol/L CL Normal 98 LAB L501.6100 21.0-32.0 mmol/L High CO2 36.0 LAB L501.6200 5-15 Normal GAP 8 Performed By: #### L500.2500, L501.9520, L501.9910 #### [facility] [address] [place], [address] THYROID STIM HORMONE Collected: 04/15/2018 Status: F Source: [place] (TSH) 10:19 AM [facility] REPOSITORY Order Comment: DR TORRES GETS INR, DR DEAN GETS RESULTS FOR TSH,BMP,PSA,CBCD TYPE CODE TESTS RESULT OUT OF RANGE REFERENCE UNITS LAB L501.9520 0.358-3.74 uIU/mL Normal TSH 3.66 Performed By: #### L500.2500, L501.9520, L501.9910 #### [facility] [address] [place], [address] PSA,TOTAL - ANNUAL Collected: 04/15/2018 Status: F Source: [place] SCREEN 10:19 AM [facility] REPOSITORY Order Comment: DR TORRES GETS INR, DR DEAN GETS RESULTS FOR TSH,BMP,PSA,CBCD TYPE CODE TESTS RESULT OUT OF RANGE REFERENCE UNITS LAB L501.9910 0.00-4.00 ng/mL Normal PSA,TOT 0.72 SCREEN Result Comment: This test was performed using the TPSA assay method for the [employer] chemistry system. Values obtained with different assay methods cannot be used interchangably. When changing PSA assays in the course of monitoring a patient, additional sequential testing should be carried out to confirm baseline values. Performed By: #### L500.2500, L501.9520, L501.9910 #### [facility] [address] [place], [address] PROTHROMBIN TIME W/INR Collected: 04/01/2018 Status: F Source: [place] 9:22 AM [facility] REPOSITORY TYPE CODE TESTS RESULT OUT OF RANGE REFERENCE UNITS LAB L300.4150 11.7-14.9 SECONDS High PROTIME 22.1 LAB L300.4200 Normal INR 1.9 Performed By: #### L300.3900 #### [facility] [address] [place], [address] PROTHROMBIN TIME W/INR Collected: 03/18/2018 Status: F Source: [place] 10:00 AM [facility] REPOSITORY TYPE CODE TESTS RESULT OUT OF RANGE REFERENCE UNITS LAB L300.4150 11.7-14.9 SECONDS High PROTIME 22.1 LAB L300.4200 Normal INR 1.9 Performed By: #### L300.3900 #### [facility] [address] [place], [address] PROTHROMBIN TIME W/INR Collected: 03/04/2018 Status: F Source: [place] 8:31 AM [facility] REPOSITORY TYPE CODE TESTS RESULT OUT OF RANGE REFERENCE UNITS LAB L300.4150 11.7-14.9 SECONDS High PROTIME 23.1 LAB L300.4200 Normal INR 2.0 Performed By: #### L300.3900 #### [facility] [address] [place], [address] URINALYSIS, ROUTINE Collected: 02/24/2018 Status: F Source: [place] (D[place]ST[place]) 9:06 AM [facility] REPOSITORY Order Comment: How was Urine Obtained? CLEAN CATCH TYPE CODE TESTS RESULT OUT OF RANGE REFERENCE UNITS LAB L400.3000 Yellow COLOR Normal Yellow LAB L400.3050 Clear Normal CLARITY Clear LAB L400.3200 Normal mg/dl Normal GLUCOSE, UR Normal LAB L400.3300 Negative mg/dL Normal BILIRUBIN URINE Negative LAB L400.3400 Negative mg/dl Normal KETONE UR Negative LAB L400.3465 1.002-1.030 Normal SP.GR. DIPSTX 1.010 LAB L400.3550 5.0 - 8.0 pH UR Normal 7.0 LAB L400.3600 Negative mg/dl PROT Normal DIPSTX Negative LAB L400.3700 Normal mg/dl Normal UROBILI Normal LAB L400.3750 Negative Normal NITRITE UR Negative LAB L400.3780 Negative /ul Normal OCCULT BLOOD-UR Negative LAB L400.3800 Negative /ul LEUK Normal ESTERASE Negative Performed By: #### L400.2010 #### [facility] [address] [place], [place], [id number] CBC-COMPLETE BLOOD CNT Collected: 02/24/2018 Status: F Source: [place] NO DIFF 9:06 AM [facility] REPOSITORY TYPE CODE TESTS RESULT OUT OF RANGE REFERENCE UNITS LAB L100.1000 4.4-11.0 K/mm3 Normal WBC 6.1 LAB L100.1200 4.6-6.2 M/mm3 Low RBC 4.12 LAB L100.1300 13.0-16.5 g/dl Low HGB 12.6 LAB L100.1400 40-54 % Normal HCT 41.3 LAB L100.1500 80-94 fL High MCV 100.2 LAB L100.1600 27.0-32.0 pg Normal MCH 30.6 LAB L100.1700 32-36 g/gl Low MCHC 30.5 LAB L100.1810 11.6-14.6 % High RDW CV 18.9 LAB L100.1820 35.1-43.9 fl High RDW SD 69.1 LAB L100.1900 150-450 K/mm3 Low PLT 129 LAB L100.2000 6.2-12.0 fl Normal MPV 10.2 Performed By: #### L100.0500, L100.4500 #### [facility] [address] [place], [place], [id number] DIFFERENTIAL COMMENT Collected: 02/24/2018 Status: F Source: [place] 9:06 AM [facility] REPOSITORY TYPE CODE TESTS RESULT OUT OF RANGE REFERENCE UNITS LAB L100.4500 Normal SMEAR COMMENT COMMENT Result Comment: SLIDE SCANNED - 1+ ANISO. Performed By: #### L100.0500, L100.4500 #### [facility] [address] [place], [address] RENAL PROFILE Collected: 02/24/2018 Status: F Source: [place] 9:06 AM [facility] REPOSITORY TYPE CODE TESTS RESULT OUT OF RANGE REFERENCE UNITS LAB L501.0100 74-106 mg/dL Normal GLU 95 Result Comment: Please note revised GLUCOSE reference range effective 2017. LAB L501.1000 7-18 mg/dL High BUN 49 LAB L501.1100 0.70-1.30 mg/dL High CREAT,SERUM 2.81 Result Comment: The validity of the calculated GFR AND GFRAA in patients over 70 years has not been determined. Clinical correlation is essential. LAB L501.1110 >60 mL/min Low EST GFR 24 Result Comment: Non- GFR Calc LAB L501.1115 >60 mL/min Low EST GFR - AA 29 Result Comment: GFR Calc LAB L501.1300 10-20 RATIO Normal BUN/CRE 17.4 LAB L501.1800 3.2-5.0 g/dL Normal ALB 3.6 LAB L501.2200 8.5-10.1 mg/dL CA Normal 9.7 LAB L501.2300 2.5-4.9 mg/dL Normal PHOS 4.1 LAB L501.5300 136-145 mmol/L NA Normal 143 LAB L501.5600 3.5-5.1 mmol/L K Normal 4.7 LAB L501.5900 98-107 mmol/L CL Normal 102 LAB L501.6100 21.0-32.0 mmol/L Normal CO2 31.0 Performed By: #### L500.3600, L503.6075, L503.6150, L503.6550 #### [facility] [address] [place], [address] IRON BINDING Collected: 02/24/2018 Status: F Source: [place] CAPACITY,TOTAL 9:06 AM [facility] REPOSITORY TYPE CODE TESTS RESULT OUT OF RANGE REFERENCE UNITS LAB L503.6075 250-450 ug/dL High TIBC 539 Performed By: #### L500.3600, L503.6075, L503.6150, L503.6550 #### [facility] [address] [place], [place], [address] IRON Collected: 02/24/2018 Status: F Source: [place] 9:06 AM [facility] REPOSITORY TYPE CODE TESTS RESULT OUT OF RANGE REFERENCE UNITS LAB L503.6150 65-175 ug/dL Normal IRON 85 Performed By: #### L500.3600, L503.6075, L503.6150, L503.6550 #### [facility] [address] [place], [address] FERRITIN Collected: 02/24/2018 Status: F Source: [place] 9:06 AM [facility] REPOSITORY TYPE CODE TESTS RESULT OUT OF RANGE REFERENCE UNITS LAB L503.6550 26-388 ng/mL Normal FERRITIN 84 Performed By: #### L500.3600, L503.6075, L503.6150, L503.6550 #### [facility] [address] [place], [address] PROTEIN+CREATININE Collected: Status: F Source: [place] [facility],URINE 02/24/2018 9:06 AM [facility] REPOSITORY TYPE CODE TESTS RESULT OUT OF RANGE REFERENCE UNITS LAB L501.1200 NO RANGE EST. mg/dL 31.40 Normal UR CREAT LAB L501.1930 <11.9 mg/dL < 6.0 Normal PROTEIN,UR. RAN. LAB L501.1940 0-200 mg/g CRE Test Normal not performed PROT:CRE RATIO Performed By: #### L501.0900, L502.0250 #### [facility] [address] [place], [place], [address] MICROALB:CREAT Collected: 02/24/2018 Status: F Source: [place] RATIO,RANDOM UR 9:06 AM [facility] REPOSITORY TYPE CODE TESTS RESULT OUT OF RANGE REFERENCE UNITS LAB L502.0500 NO RANGE EST. mg/L < 5.0 Normal MICROALBUMI N,UR LAB L502.0600 <30 mg/g CRE mg/g CRE Test Normal not performed MALB:CREAT Performed By: #### L501.0900, L502.0250 #### [facility] [address] [place], [address] VITAMIN D,25 HYDROXY Collected: 02/24/2018 Status: F Source: [place] 9:06 AM [facility] REPOSITORY TYPE CODE TESTS RESULT OUT OF RANGE REFERENCE UNITS LAB L506.1000 29.95-100.01 ng/mL Normal Vitamin D 91.9 25-OH Result Comment: Vitamin D 25(OH) Status Range Deficiency <20 ng/mL (50nmol/L) Insuffciency 20 - 30 ng/mL (50 - 75 nmol/L) Sufficiency 30 - 100 ng/mL (75 - 250 nmol/L) Toxicity >100 ng/mL (>250 nmol/L) Performed By: #### L506.1000 #### [facility] [address] [place], [address] PTHIN Collected: 02/24/2018 Status: F Source: [place] 9:06 AM [facility] REPOSITORY TYPE CODE TESTS RESULT OUT OF RANGE REFERENCE UNITS LAB L509.1000 18.4-80.1 pg/mL High PTHIN 123.8 Performed By: #### L509.1000 #### [facility] [address] [place], [address] PROTHROMBIN TIME W/INR Collected: 02/18/2018 Status: F Source: [place] 8:22 AM [facility] REPOSITORY TYPE CODE TESTS RESULT OUT OF RANGE REFERENCE UNITS LAB L300.4150 11.7-14.9 SECONDS High PROTIME 25.7 LAB L300.4200 Normal INR 2.3 Performed By: #### L300.3900 #### [facility] [address] [place], [address] PROTHROMBIN TIME W/INR Collected: 02/04/2018 Status: F Source: [place] 8:15 AM [facility] REPOSITORY TYPE CODE TESTS RESULT OUT OF REFERENCE UNITS RANGE LAB L300.4150 11.7-14.9 SECONDS High PROTIME 37.8 LAB L300.4200 High alert INR 3.8 Result Comment: CRITICAL VALUE VERIFIED. CALLED TO [facility] 02/04/18 1020 Melissa Castillo. RESULTS READ BACK BY SYDNEY . Performed By: #### L300.3900 #### [facility] [place], [address] PACEMAKER CHECK Observed: 02/03/2018 Status: F Source: [place] 5:28 PM [facility] REPOSITORY [facility] [address] [place] [address] Pacemaker Check Date of Service: 01/31/18 1128 MR#: [id number] Acct: [id number] Name: MOE CAMEJO Rep #: [id number] : 1950 From: Claudia Bradley Age/Sex: 67/M Location: [facility] Status: Signed Billing Codes ICD Device Billing: ICD Dev Prog Eval, Dual 01/31/18 1130 <Electronically signed by Claudia Bradley > Date Claudia Bradley 02/03/18 1728<Electronically signed by Brent Torres MD> [facility] Signature: Date (if applicable) Brent Torres MD CC: CARDIOLOGY VISIT Observed: 02/03/2018 Status: F Source: [place] REPORT 5:28 PM [facility] REPOSITORY [facility] [address] [place] [address] OFFICE VISIT Date of Service: 01/31/18 MR#: [id number] Acct: [id number] Name: MOE CAMEJO Rep #: [id number] : 1950 Provider: TAPAN Medrano Age/Sex: 67/M Location: [facility] Status: Signed HPI HPI Details: MOE CAMEJO, is a 67 M who presents to the office today for a cardiovascular outpatient follow-up. He has history of ischemic cardiomyopathy, coronary artery disease, status post AICD placement, and asymptomatic chronic persistent atrial fibrillation with previous Coumadin therapy. Overall, he feels very well. Pt denies chest, arm, jaw, or neck discomfort. His exercise tolerance is stable. Pt denies symptoms of palpitations, lightheadedness, dizziness, near syncopal or syncopal episodes. Pt denies edema. Pt. denies orthopnea, PND, fever, chills, blood in urine, blood in stool, myalgia, or unexplainable fatigue. He states SOB with activity that has not worsened. He states some right leg pain with ambulation that has been evaluated by vascular surgeon. He wears chronic oxygen at 3 liters. Intake Vital Signs01/31/18 Height 5 ft 7 in 01/31/18 Weight: 196 lb 01/31/18 Body Mass Index (BMI) 30.7 01/31/18 Blood Pressure 100/58 01/31/18 Blood Pressure Location Lt brachial Intake Visit Reasons: F/U / PACER 10:00 Accompanied by: none Is patient in pain?: No Allergies No Known Allergies Allergy (Verified 01/31/18 10:18) Medications Albuterol IH (ProAir) [Proair Hfa] 1 - 2 puff INHALATION Q4H PRN PRN 12/01/17 [History Confirmed 01/31/18] Amiodarone HCl 200 mg PO DAILY 12/01/17 [History Confirmed 01/31/18] Aspirin E.C. [Ecotrin] 81 mg PO DAILY@0800 12/01/17 [History Confirmed 01/31/18] Budesonide/Formoterol 160/4.5 [Symbicort 160/4.5 Mcg Inhaler (SP)] 1 puff INHALATION BID 12/01/17 [History Confirmed 01/31/18] Carvedilol 25 mg PO BID 12/01/17 [History Confirmed 01/31/18] Ezetimibe [Zetia] 10 mg PO QHS 12/01/17 [History Confirmed 01/31/18] Fenofibrate Nanocrystallized [Fenofibrate] 145 mg PO QHS 12/01/17 [History Confirmed 01/31/18] Isosorbide Dinitrate 5 mg PO TID 12/01/17 [History Confirmed 01/31/18] Levothyroxine Sodium 112 mcg PO DAILY 12/01/17 [History Confirmed 01/31/18] Potassium Chloride [K-Dur] 10 meq PO BID 12/01/17 [History Confirmed 01/31/18] Rosuvastatin Calcium [Crestor] 40 mg PO QHS 12/01/17 [History Confirmed 01/31/18] Tamsulosin HCl [Flomax] 0.4 mg PO DAILY 12/01/17 [History Confirmed 01/31/18] Tiotropium Quartzsite [Spiriva Respimat] 2 puff INHALATION BID 12/01/17 [History Confirmed 01/31/18] Warfarin Sodium 3 mg PO DAILY 12/01/17 [History Confirmed 01/31/18] hydrALAZINE [Apresoline] 25 mg PO BID 12/01/17 [History Confirmed 01/31/18] Ferrous Sulfate 325 mg PO TIDCM #1 tab 12/04/17 [Rx Confirmed 01/31/18] spironolactone 25 mg tablet 25 mg PO DAILY #30 tab 12/29/17 [Rx Confirmed 01/31/18] ergocalciferol (vitamin D2) 50,000 unit capsule 50,000 unit PO QWEEK 01/31/18 [History Confirmed 01/31/18] furosemide 20 mg tablet 60 mg PO BID tab 01/31/18 [History Confirmed 01/31/18] Ejection fraction %: 15 to 19 PFSH Medical History Acute kidney injury superimposed on chronic kidney disease (Acute) CHF (congestive heart failure) (Acute) Acute kidney injury on CKD stage III (Acute) Warfarin-induced coagulopathy (Chronic) Anasarca (Acute) Acute on chronic combined severe HF (Acute) half-way (current) use of anticoagulants (Chronic) History of stent insertion of renal artery (Chronic) Anemia (Chronic) Bilateral atelectasis (Chronic) Acute on chronic respiratory failure with hypoxia and hypercapnia (Resolved) Respiratory failure with hypoxia and hypercapnia (Chronic) Acute systolic congestive heart failure (Acute) Coronary artery disease (Chronic) Peripheral arterial occlusive disease (Chronic) Pleural effusion (Chronic) Acute cor pulmonale (Chronic) Ischemic cardiomyopathy (Chronic) Chronic anticoagulation (Chronic) Pulmonary hypertension (Chronic) Atrial fibrillation (Chronic) Hyperlipemia (Chronic) COPD (chronic obstructive pulmonary disease) (Chronic) Hypertension (Chronic) Urine retention (Chronic) BPH (benign prostatic hypertrophy) (Chronic) Hypothyroidism (Chronic) Former smoker, stopped smoking in distant past (Chronic) Pacemaker (Chronic) Diverticulosis (Chronic) Left renal artery stenosis (Chronic) Surgical History AICD (automatic cardioverter/defibrillator) present (Chronic) History of PTCA (Chronic) Family History Father CAD (coronary artery disease) Mother CAD (coronary artery disease) Brother CAD (coronary artery disease) Hypertension Sister CAD (coronary artery disease) Hypertension Social History Smoking Status: Former smoker alcohol intake: never caffeine: Yes Type: coffee ROS Const Const: Negative for weakness, body ache, fever(s), chills or fatigue ENT ENT: Negative for dizziness Cardio Chest Pain: No Palpitations: No Edema: None Muscle aches with walking: None Resp Respiratory: Positive for SOB with activity (has not worsened); negative for SOB at rest, SOB orthopnea\SOB lying down, paroxysmal nocturnal dyspnea or Cough GI GI: Negative nausea, black,tarry stools, bright, red blood in stools or vomiting blood/hematemesis : Negative for hematuria or frequent nighttime urination/ nocturia Musc Musc: Negative for muscle aches/ myalgia Skin Skin: Negative non-healing lesions or rash Neuro Neuro: Negative for lightheadedness, near syncope, syncope, orthostatic symptoms, weakness or dizziness Endo Endo: Negative for fatigue Allergy Allergy/Immunology: Negative for rash Cardiology Exam Const Appearance: cooperative, healthy appearing, comfortable and no acute distress Orientation: alert, awake and oriented x3 Head Head: normal to inspection Ears: hearing grossly normal bilaterally Nose: external nose normal Face and Sinus: face symmetric Mouth: oral mucosae normal Eyes General: appearance normal, both eyes and all related structures Eyelids: eyelids normal Neck Neck: no JVD and normal visual inspection Carotids: normal carotid upstroke Chest Chest inspection: normal inspection of the chest and normal respiratory effort; negative cough Auscultation: Bilateral: Clear to Auscultation Cardio Rate: regular rate Rhythm: regular rhythm Heart sounds: S2 normal and murmur; negative rub or gallop Murmur: Grade 3/6 and LLSB GI GI: normal to inspection Neuro General: alert, awake, oriented x3 and CN's II-XI intact bilaterally Skin Skin: no rashes or lesions noted Extremities Pulses: Normal: Right Posterior Tibial Pulse, Left Posterior Tibial Pulse, Right Radial Pulse, Left Radial Pulse Lower Extremity Edema: None: Bilateral Psych Psychological: normal affect Supplemental Info Echocardiogram from November 2017 showed severely dilated left ventricle, estimated ejection fraction of 15%, severe global hypokinesis of left ventricle, mildly dilated right ventricle, severely enlarged left atrium, mildly enlarged right atrium, mild mitral valve insufficiency, mild to moderate tricuspid valve insufficiency, RVSP of 69 mmHg, severe pulmonary hypertension, inferior vena cava is dilated, and when compared to previous echo in October 2016 LV function has remained the same and RVSP has increased from 55-69 mmHg. Patient appears to be in atrial fibrillation. Heart catheterization from June 2016 showed widely patent LAD and LCx stents, chronically occluded RCA, EF of 15 20%, mildly elevated LVEDP, and normal adequately controlled systemic pressures. Pacemaker check from January 2018 showed AP% at 4.7%, FAMILY COACH% at 36.8%, atrial burden of AT/AF of 100%, and no VT/VF episodes. Assessment AND Plan 1. Ischemic cardiomyopathy I25.5 EF 20% on 10/27/16 OSMANY More Patient's echocardiogram in November 2017 showed ejection fraction of 15%. Patient states his breathing has remained stable. His diuretics have been decreased due to the kidney function. He will continue current medications and we will continue to monitor. 2. Coronary artery disease involving tribal coronary artery of tribal heart without angina pectoris I25.10 OSMANY More Patient's most recent heart catheterization from June 2016 showed widely patent LAD and LCx stents. Patient denies any chest pain, arm pain, jaw pain, neck pain, shortness of breath, or fatigue suggestive of angina at this time. We will continue to monitor this. We will not make any medication regimen changes and will continue risk factor modification. 3. Pacemaker Z95.0 OSMANY More Patient's pacemaker/ICD appears to be functioning appropriately. We will continue to monitor this with routine/scheduled follow-ups. 4. Chronic atrial fibrillation I48.2 OSMANY More Patient's most recent pacemaker check showed a T/AF of 100%. His heart rate is well-controlled today in office. He will continue with carvedilol and warfarin therapy. 5. Essential hypertension I10 OSMANY More Patient's blood pressure is well-controlled today in the office. We will continue to monitor this. We will not make any medication regimen changes. 6. Pure hypercholesterolemia E78.00; E78.0 Plan - OSMANY Rangel Lipid panel from November 2017 showed cholesterol: 98, HDL: 22, LDL: 52, and triglycerides: 120. He will continue with current cholesterol lowering medications. We will continue to monitor this. Plan Detail Additional Comments - OSMANY Rangel Thank you for allowing us to participate in the patients plan of care, if you have any questions please do not hesitate to call. This note was generated using a voice recognition system and there may be incorrect words, spelling or punctuation that were not noted when reviewing the office note prior to saving. Coding Level of Care Code Off vis,est,level 3 Diagnoses Ischemic cardiomyopathy I25.5 Coronary artery disease involving tribal coronary artery of tribal heart without angina pectoris I25.10 Coronary Disease-Associated Artery/Lesion type: tribal artery [place] vs. transplanted heart: tribal heart Associated angina: without angina Pacemaker Z95.0 Chronic atrial fibrillation I48.2 Atrial fibrillation type: chronic Essential hypertension I10 Hypertension type: essential hypertension Pure hypercholesterolemia E78.00; E78.0 Hyperlipidemia type: pure hypercholesterolemia Coding Level of Care Code Off vis,est,level 3 Diagnoses Ischemic cardiomyopathy I25.5 Coronary artery disease involving tribal coronary artery of tribal heart without angina pectoris I25.10 Coronary Disease-Associated Artery/Lesion type: tribal artery [place] vs. transplanted heart: tribal heart Associated angina: without angina Pacemaker Z95.0 Chronic atrial fibrillation I48.2 Atrial fibrillation type: chronic Essential hypertension I10 Hypertension type: essential hypertension Pure hypercholesterolemia E78.00; E78.0 Hyperlipidemia type: pure hypercholesterolemia 01/31/18 1346 <Electronically signed by Tony REYEZC> Date Tony REYEZC 02/03/18 1728<Electronically signed by Brent Torres MD> Cosigner Signature: Date (if applicable) Brent Torres MD CC: Tyrone Dean PROTHROMBIN TIME W/INR Collected: 01/27/2018 Status: F Source: [place] 8:27 AM [facility] REPOSITORY TYPE CODE TESTS RESULT OUT OF REFERENCE UNITS RANGE LAB L300.4150 11.7-14.9 SECONDS High PROTIME 36.6 LAB L300.4200 High alert INR 3.7 Result Comment: CRITICAL VALUE VERIFIED. CALLED TO ASAF AT [facility] 01/27/18 0940 Elba Edward. RESULTS READ BACK BY SAME . Performed By: #### L300.3900 #### [facility] [address] [place], [place], [address] PROTHROMBIN TIME W/INR Collected: 01/11/2018 Status: F Source: [place] 12:44 PM [facility] REPOSITORY TYPE CODE TESTS RESULT OUT OF RANGE REFERENCE UNITS LAB L300.4150 11.7-14.9 SECONDS High PROTIME 34.2 LAB L300.4200 Normal INR 3.4 Performed By: #### L300.3900 #### [facility] [address] [place], [address] BASIC METABOLIC Collected: 01/11/2018 Status: F Source: [place] PROFILE (BMP) 12:44 PM [facility] REPOSITORY Order Comment: SEND RESULTS OF BMP TO TYPE CODE TESTS RESULT OUT OF RANGE REFERENCE UNITS LAB L501.0100 74-106 mg/dL Normal GLU 84 Result Comment: Please note revised GLUCOSE reference range effective 2017. LAB L501.1000 7-18 mg/dL High BUN 63 LAB L501.1100 0.70-1.30 mg/dL High CREAT,SERUM 2.76 Result Comment: The validity of the calculated GFR AND GFRAA in patients over 70 years has not been determined. Clinical correlation is essential. LAB L501.1110 >60 mL/min Low EST GFR 24 Result Comment: Non- GFR Calc LAB L501.1115 >60 mL/min Low EST GFR - AA 30 Result Comment: GFR Calc LAB L501.1300 10-20 RATIO High BUN/CRE 22.8 LAB L501.2200 8.5-10.1 mg/dL CA Normal 9.2 LAB L501.5300 136-145 mmol/L NA Normal 141 LAB L501.5600 3.5-5.1 mmol/L K Normal 4.3 LAB L501.5900 98-107 mmol/L CL Normal 100 LAB L501.6100 21.0-32.0 mmol/L Normal CO2 32.0 LAB L501.6200 5-15 Normal GAP 9 Performed By: #### L500.2500 #### [facility] [address] [place], [place], [address] BASIC METABOLIC Collected: 12/29/2017 Status: F Source: [place] PROFILE (BMP) 10:51 AM [facility] REPOSITORY TYPE CODE TESTS RESULT OUT OF RANGE REFERENCE UNITS LAB L501.0100 74-106 mg/dL High GLU 107 Result Comment: Fasting Glucose result from 100 to 125 mg/dL suggests IMPAIRED HOMEOSTASIS per A.D.A. criteria. Please note revised GLUCOSE reference range effective 2017. LAB L501.1000 7-18 mg/dL High BUN 89 LAB L501.1100 0.70-1.30 mg/dL High CREAT,SERUM 3.27 Result Comment: The validity of the calculated GFR AND GFRAA in patients over 70 years has not been determined. Clinical correlation is essential. LAB L501.1110 >60 mL/min Low EST GFR 20 Result Comment: Non- GFR Calc LAB L501.1115 >60 mL/min Low EST GFR - AA 24 Result Comment: GFR Calc LAB L501.1300 10-20 RATIO High BUN/CRE 27.2 LAB L501.2200 8.5-10.1 mg/dL CA Normal 9.0 LAB L501.5300 136-145 mmol/L NA Normal 138 LAB L501.5600 3.5-5.1 mmol/L K Normal 4.3 LAB L501.5900 98-107 mmol/L Low CL 96 LAB L501.6100 21.0-32.0 mmol/L High CO2 35.0 LAB L501.6200 5-15 Normal GAP 7 Performed By: #### L500.2500 #### [facility] [address] [place], [address] PROTHROMBIN TIME W/INR Collected: 12/29/2017 Status: F Source: [place] 10:50 AM [facility] REPOSITORY Order Comment: Comments: STANDING ORDER Comments: STANDING ORDER TYPE CODE TESTS RESULT OUT OF RANGE REFERENCE UNITS LAB L300.4150 11.7-14.9 SECONDS High PROTIME 18.6 LAB L300.4200 Normal INR 1.6 Performed By: #### L300.3900 #### [facility] [address] [place], [address] DISCHARGE SUMMARY Observed: 12/04/2017 Status: F Source: [place] 5:35 PM [facility] REPOSITORY [facility] Medical Records Department [address] [place] [address] Discharge Summary 12/04/17 1722 MR#: [id number] Acct: [id number] Name: MOE CAMEJO Rep #: [id number] : 1950 66 From: Des Mota DO PCP: Tyrone Dean Status: DIS IN Y Location: [place] [address] Discharge Date and Diagnosis Date of Admission: 12/01/17 Date of Discharge: 12/04/17 - Primary Discharge Diagnosis #1 acute on chronic systolic congestive heart failure-EF 15% #2 acute kidney injury on chronic kidney disease stage III #3 hypokalemia #4 chronic hypoxic respiratory failure #5 iron deficiency anemia-etiology unclear #6 coronary artery disease #7 ischemic cardiomyopathy #8 permanent atrial fibrillation #9 anasarca #10 severe pulmonary hypertension #11 chronic obstructive pulmonary disease - Secondary Discharge Diagnosis Chronic Problems Warfarin-induced coagulopathy (Chronic) 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 no chronic medications Hypertension (Chronic) Urine retention (Chronic) BPH (benign prostatic hypertrophy) (Chronic) Hypothyroidism (Chronic) Former smoker, stopped smoking in distant past (Chronic) Quit in 1999 AICD (automatic cardioverter/defibrillator) present (Chronic) Pacemaker (Chronic) Diverticulosis (Chronic) Left renal artery stenosis (Chronic) Stent done in February History of PTCA (Chronic) Hospital Course and Treatment Operations: None Procedures: 2-D Echocardiogram Summary of Care Provided: The patient is a 66 year old M was seen in the emergency room with a chief complaint of weight gain, lower extremity edema, and dyspnea with very light exertion. Patient denied any chest discomfort. Workup in the emergency room included a chest x-ray which showed increased right pleural effusion with right basilar atelectasis and/or infiltrate, EKG showed atrial fibrillation with frequent ventricular paced complexes, CBC showed a low hemoglobin at 6.9, white blood cell count was 4.1, BMP was remarkable for a potassium of 3.1, creatinine of 2.29, BUN of 58, and the patient's troponin was normal. Patient required 4 L to maintain his pulse ox above 90%-he uses 3 L chronically at home. Patient was felt to be in congestive heart failure, and initially it was documented as combined diastolic and systolic congestive heart failure, but I felt that the patient had systolic rather than combined heart failure. Patient was admitted to PCU, he was seen in consultation by nephrology and cardiology, potassium replacement was given, he was placed on IV Lasix and his cardiac medications were adjusted and monitored. Patient diuresed well during his hospital stay, his creatinine actually lowered. Echocardiogram was obtained which showed a poor ejection fraction of 15% along with pulmonary hypertension. Patient was given Venofer infusions by nephrology who had worked up the patient's anemia as an outpatient and found he was iron deficient. Nephrology did not feel it was a good idea to place the patient on an JUANITA inhibitor and cardiology did not feel that it was safe to put the patient on JUANITA inhibitor. On 12/04/17, patient was seen and examined felt to be in stable condition for discharge home Discharge Activity: Return to Normal Activity Weight Bearing Status: Full weight bearing Home Medications: Medications to take at Discharge Albuterol IH (ProAir) [Proair Hfa] 1 - 2 puff INHALATION Q4H PRN PRN 12/01/17 Amiodarone HCl 200 mg PO DAILY 12/01/17 Aspirin E.C. [Ecotrin] 81 mg PO DAILY@0800 12/01/17 Budesonide/Formoterol 160/4.5 [Symbicort 160/4.5 Mcg Inhaler (SP)] 1 puff INHALATION BID 12/01/17 Carvedilol 25 mg PO BID 12/01/17 Ezetimibe [Zetia] 10 mg PO QHS 12/01/17 Fenofibrate Nanocrystallized [Fenofibrate] 145 mg PO QHS 12/01/17 Isosorbide Dinitrate 5 mg PO TID 12/01/17 Levothyroxine Sodium 112 mcg PO DAILY 12/01/17 Metolazone [Zaroxolyn] 2.5 mg PO TUTH 12/01/17 Potassium Chloride [K-Dur] 10 meq PO BID 12/01/17 Rosuvastatin Calcium [Crestor] 40 mg PO QHS 12/01/17 Tamsulosin HCl [Flomax] 0.4 mg PO DAILY 12/01/17 Tiotropium Quartzsite [Spiriva Respimat] 2 puff INHALATION BID 12/01/17 Warfarin Sodium 3 mg PO DAILY 12/01/17 hydrALAZINE [Apresoline] 25 mg PO BID 12/01/17 Ferrous Sulfate 325 mg PO TIDCM #1 tablet 12/04/17 Furosemide 60 mg PO TID #1 tablet 12/04/17 Spironolactone [Aldactone] 25 mg PO DAILY #30 tab 12/04/17 Following Prescrptions Were Given to Patient: Spironolactone [Aldactone] 25 mg PO DAILY #30 tab Ferrous Sulfate 325 mg PO TIDCM #1 tablet Furosemide 60 mg PO TID #1 tablet Primary Care Physician: Tyrone Dean [Primary Care Provider] - Please follow up with your Primary Care Physician in: in 3 weeks Please Follow Up With: Chari Downey MD When: in 2 weeks Please Follow Up With: Brent Torres MD When: in 3 weeks Disposition: Home Minutes spent on discharge:: 32 Patient Condition:: Stable Medical Necessity - Tobacco Use Smoking Status: Former smoker Tobacco Use: Cigarettes Meaningful Use Info Meaningful Use Diagnoses (Choose all that apply): CHF - CHF JUANITA/ARB ordered at discharge?: No Reason JUANITA/ARB not ordered?: Worsening renal function, Hypotension, Renal artery stenosis Documented LVEF (%): 15 Code Visit Inpatient E AND M: [id number] Disch Hosp 12/04/17 5888 <Electronically signed by Des Mota DO> Date Des Mota DO Cosigner Signature (if applicable): Date CC: Tyrone Dean; Des Mota DO Signed DISCHARGE INSTRUCTION Observed: 12/04/2017 Status: F Source: [place] 1:41 PM [facility] REPOSITORY [facility] Medical Records Department [address] [place] [address] Instructions for Home/Discharge Instructions 12/04/17 1339 MR#: [id number] Acct: [id number] Name: MOE CAMEJO Rep #: [id number] : 1950 66 From: Des Mota DO PCP: Tyrone Dean Status: ADM IN You will use the following diet at home:: No restrictions Your food should be the consistency of: Regular Your liquids should be the consistency of: Regular/Thin Discharge Activity: Return to Normal Activity Weight Bearing Status: Full weight bearing Allergies/Adverse Reactions: Allergies No Known Allergies Allergy (Verified 12/01/17 11:52) Medications to take at Discharge Albuterol IH (ProAir) [Proair Hfa] 1 - 2 puff INHALATION Q4H PRN PRN 12/01/17 Amiodarone HCl 200 mg PO DAILY 12/01/17 Aspirin E.C. [Ecotrin] 81 mg PO DAILY@0800 12/01/17 Budesonide/Formoterol 160/4.5 [Symbicort 160/4.5 Mcg Inhaler (SP)] 1 puff INHALATION BID 12/01/17 Carvedilol 25 mg PO BID 12/01/17 Ezetimibe [Zetia] 10 mg PO QHS 12/01/17 Fenofibrate Nanocrystallized [Fenofibrate] 145 mg PO QHS 12/01/17 Isosorbide Dinitrate 5 mg PO TID 12/01/17 Levothyroxine Sodium 112 mcg PO DAILY 12/01/17 Metolazone [Zaroxolyn] 2.5 mg PO TUTH 12/01/17 Potassium Chloride [K-Dur] 10 meq PO BID 12/01/17 Rosuvastatin Calcium [Crestor] 40 mg PO QHS 12/01/17 Tamsulosin HCl [Flomax] 0.4 mg PO DAILY 12/01/17 Tiotropium Quartzsite [Spiriva Respimat] 2 puff INHALATION BID 12/01/17 Warfarin Sodium 3 mg PO DAILY 12/01/17 hydrALAZINE [Apresoline] 25 mg PO BID 12/01/17 Ferrous Sulfate 325 mg PO TIDCM #1 tablet 12/04/17 Furosemide 60 mg PO TID #1 tablet 12/04/17 Spironolactone [Aldactone] 25 mg PO DAILY #30 tab 12/04/17 The following prescriptions were given: Spironolactone [Aldactone] 25 mg PO DAILY #30 tab Ferrous Sulfate 325 mg PO TIDCM #1 tablet Furosemide 60 mg PO TID #1 tablet Primary Care Physician: Tyrone Dean [Primary Care Provider] - Please follow up with your Primary Care Physician in: in 3 weeks Please Follow Up With: Chari Downey MD When: in 2 weeks Please Follow Up With: Brent Torres MD When: in 3 weeks 12/04/17 1341 <Electronically signed by Des Mota DO> Date Des Mota DO CC: Tyrone Dean; Chari Downey MD; Brent Torres MD CBC-COMPLETE BLOOD CNT Collected: 12/04/2017 Status: F Source: [place] NO DIFF 6:34 AM [facility] REPOSITORY TYPE CODE TESTS RESULT OUT OF RANGE REFERENCE UNITS LAB L100.1000 4.4-11.0 K/mm3 Normal WBC 6.0 LAB L100.1200 4.6-6.2 M/mm3 Low RBC 3.55 LAB L100.1300 13.0-16.5 g/dl Low HGB 7.4 LAB L100.1400 40-54 % Low HCT 28.7 LAB L100.1500 80-94 fL Normal MCV 80.8 LAB L100.1600 27.0-32.0 pg Low MCH 20.8 LAB L100.1700 32-36 g/gl Low MCHC 25.8 LAB L100.1810 11.6-14.6 % High RDW CV 19.8 LAB L100.1820 35.1-43.9 fl High RDW SD 54.7 LAB L100.1900 150-450 K/mm3 Normal PLT 157 LAB L100.2000 6.2-12.0 fl Normal MPV 10.4 Performed By: #### L100.0500 #### [facility] [address] [place], [address] PROTHROMBIN TIME W/INR Collected: 12/04/2017 Status: F Source: [place] 6:34 AM [facility] REPOSITORY TYPE CODE TESTS RESULT OUT OF RANGE REFERENCE UNITS LAB L300.4150 11.7-14.9 SECONDS High PROTIME 23.7 LAB L300.4200 Normal INR 2.1 Performed By: #### L300.3900 #### [facility] [address] [place], [address] BASIC METABOLIC Collected: 12/04/2017 Status: F Source: [place] PROFILE (BMP) 6:34 AM [facility] REPOSITORY TYPE CODE TESTS RESULT OUT OF RANGE REFERENCE UNITS LAB L501.0100 74-106 mg/dL Normal GLU 90 Result Comment: Please note revised GLUCOSE reference range effective 2017. LAB L501.1000 7-18 mg/dL High BUN 40 LAB L501.1100 0.70-1.30 mg/dL High CREAT,SERUM 1.71 Result Comment: The validity of the calculated GFR AND GFRAA in patients over 70 years has not been determined. Clinical correlation is essential. LAB L501.1110 >60 mL/min Low EST GFR 42 Result Comment: Non- GFR Calc LAB L501.1115 >60 mL/min Low EST GFR - AA 51 Result Comment: GFR Calc LAB L501.1255 ml/min Normal Estimated CRCL 38.65 LAB L501.1300 10-20 RATIO High BUN/CRE 23.4 LAB L501.2200 8.5-10 mg/dL Normal .1 CA 9.0 LAB L501.5300 136-14 mmol/L High 5 NA 146 LAB L501.5600 3.5-5. mmol/L Normal 1 K 3.6 LAB L501.5900 98-107 mmol/L Low CL 97 LAB L501.6100 21.0-3 mmol/L High 2.0 CO2 44.0 LAB L501.6200 5-15 Normal GAP 5 Performed By: #### L500.2500 #### [facility] [address] [place], [place], [id number] CBC-COMPLETE BLOOD CNT Collected: 12/03/2017 Status: F Source: [place] NO DIFF 7:41 PM [facility] REPOSITORY TYPE CODE TESTS RESULT OUT OF RANGE REFERENCE UNITS LAB L100.1000 4.4-11.0 K/mm3 Normal WBC 5.5 LAB L100.1200 4.6-6.2 M/mm3 Low RBC 3.62 LAB L100.1300 13.0-16.5 g/dl Low HGB 7.4 LAB L100.1400 40-54 % Low HCT 28.6 LAB L100.1500 80-94 fL Low MCV 79.0 LAB L100.1600 27.0-32.0 pg Low MCH 20.4 LAB L100.1700 32-36 g/gl Low MCHC 25.9 LAB L100.1810 11.6-14.6 % High RDW CV 19.6 LAB L100.1820 35.1-43.9 fl High RDW SD 56.6 LAB L100.1900 150-450 K/mm3 Low PLT 135 LAB L100.2000 6.2-12.0 fl Normal MPV 8.7 Performed By: #### L100.0500 #### [facility] [address] [place], [place], [id number] PROTHROMBIN TIME W/INR Collected: 12/03/2017 Status: F Source: [place] 7:41 PM [facility] REPOSITORY TYPE CODE TESTS RESULT OUT OF RANGE REFERENCE UNITS LAB L300.4150 11.7-14.9 SECONDS High PROTIME 25.5 LAB L300.4200 Normal INR 2.3 Performed By: #### L300.3900 #### [facility] [address] [place], [place], [id number] ECHO, COMPLETE W/ Observed: 12/03/2017 Status: F Source: [place] CONTRAST 3:17 PM [facility] REPOSITORY [facility] Cardiovascular Services [place] [address] Echo Complete 12/03/17 1120 MR#: [id number] Acct: [id number] Name: MOE CAMEJO Rep #: [id number] : 1950 66 From: Brent Torres MD Attending Dr: Des Mota DO Status: ADM IN Ordering Dr: Brent Torres MD Date: 12/03/17 Location: [facility] Sex: M C Admitted: 12/01/17 Reason For Study: DYSPNEA/SOB Procedure This was a 2D Doppler, Color Flow transthoracic echocardiogram. Exam performed portable in patient room. Left Ventricle Severely dilated left ventricle. The estimated ejection fraction is 15 %. There is severe global hypokinesis of the left ventricle. Right Ventricle Mildly dilated right ventricle. ICD or pacer leads identified within the right ventricle. Mild to moderate global right ventricular systolic dysfunction. Atria The left atrium is severely enlarged. The right atrium is moderately enlarged. Normal atrial septum. Mitral Valve The mitral valve is structurally normal. No prolapse or stenosis seen. Mild (1+) eccentric mitral valve insufficiency. Tricuspid Valve Normal tricuspid valve. Mild to moderate (1-2+) tricuspid valve insufficiency. Right ventricular systolic pressure estimated to be 69 mmHg. Severe pulmonary hypertension. Aortic Valve Trisinus/trileaflet aortic valve. Mild focal aortic valve thickening. There is no aortic stenosis. Pulmonic Valve The pulmonic valve is not well visualized. Great Vessels Normal aortic root. Normal arch. The inferior vena cava is dilated. No collapse of the inferior vena cava. Pericardium/Pleural No pericardial effusion. MMode/2D Measurements AND Calculations LVIDd: 6.4 cm IVSd: 1.4 cm Ao root diam: 3.5 cm LVIDs: 5.9 cm LVPWd: 1.1 cm RVDd: 3.6 cm FS: 7.9 % LAV(MOD-bp): 128.7 ml LVAd ap4: 48.9 cm2 SV(MOD-sp4): 40.8 ml LAV(MOD-bp) Indexed: 62.9 ml/m2 EDV(MOD-sp4): 208.5 ml LAV(MOD-sp2): 127.9 ml EDV(sp4-el): 212.7 ml LAV(MOD-sp4): 114.8 ml LVAs ap4: 40.7 cm2 ESV(MOD-sp4): 167.7 ml ESV(sp4-el): 175.3 ml EF(MOD-sp4): 19.6 % EF(sp4-el): 17.6 % SV(sp4-el): 37.4 ml LA A4 area: 32.3 cm2 RA A4 area: 20.5 cm2 Doppler Measurements AND Calculations MV E max enio: 124.4 cm/sec Ao V2 max: 129.8 cm/sec LV V1 max: 98.0 cm/sec Ao max P.8 mmHg LV V1 max P.9 mmHg PA V2 max: 88.2 cm/sec TR max enio: 352.4 cm/sec TR max P.9 mmHg Interpretation Summary Severely dilated left ventricle. The estimated ejection fraction is 15 %. There is severe global hypokinesis of the left ventricle. Mildly dilated right ventricle. The left atrium is severely enlarged. The right atrium is moderately enlarged. Mild (1+) eccentric mitral valve insufficiency. Mild to moderate (1-2+) tricuspid valve insufficiency. Right ventricular systolic pressure estimated to be 69 mmHg. Severe pulmonary hypertension. The inferior vena cava is dilated Compared to echo report dated 10/27/2016, LV Function has remained the same. RVSP has increased from 55 to 69 mm Hg. Pt appears to be in atrial fibrillation. Ordering Physician: Brent Torres Referring Physician: Chari Downey Performed By: Vivian Cabrera RDCS 12/03/17 1516 Date Brent Torres MD CC: Tyrone Dean; Brent Torres MD; Des Mota DO Date Dictated: 12/03/17 1120 Date Transcribed: 12/03/17 151 [place] Operator: Signed 12 LEAD ELECTROCARDIOGRAM Observed: 12/03/2017 Status: F Source: [place] 1:31 PM [facility] REPOSITORY [facility] Cardiovascular Services [address] [place] [address] 12 Lead EKG 12/01/17 1338 MR#: [id number] Acct: [id number] Name: MOE CAMEJO Rep #: [id number] : 1950 66 From: Dustin Oquendo MD Attending Dr: Des Mota DO Status: ADM IN Ordering Dr: Milad Lofton MD Date: 12/01/17 Location: [facility] Sex: M C Admitted: 12/01/17 Test Reason : EDEMA Blood Pressure : / mmHG Vent. Rate : 067 BPM Atrial Rate : 326 BPM P-R Int : 000 ms QRS Dur : 106 ms QT Int : 442 ms P-R-T Axes : 000 000 238 degrees QTc Int : 467 ms Atrial fibrillation with frequent ventricular-paced complexes ST AND T wave abnormality, consider anterolateral ischemia Abnormal ECG Confirmed by GAGE MESSINA, DUSTIN ([id number]), proposal editor SHERON JOHNSON ([id number]) on 12/03/2017 1:31:30 PM Referred By: Chari Downey Confirmed By:DUSTIN OQUENDO MD 12/03/17 1331 Date Dustin Oquendo MD CC: Tyrone Dean; MILAD LOFTON MD; Des Mota DO Signed Observed: 12/03/2017 Status: F Source: [place] STOOL OCCULT BLOOD 10:45 AM [facility] IFOB REPOSITORY STOB iFOB Occult Blood Negative Performed By: #### M100.7900 #### [facility] [address] [place], [place], [address] POTASSIUM Collected: 12/03/2017 Status: F Source: [place] 5:55 AM [facility] REPOSITORY TYPE CODE TESTS RESULT OUT OF RANGE REFERENCE UNITS LAB L501.5600 3.5-5.1 mmol/L Normal K 3.6 Performed By: #### L501.5600 #### [facility] [address] [place], [address] BASIC METABOLIC Collected: 12/03/2017 Status: F Source: [place] PROFILE (BMP) 5:55 AM [facility] REPOSITORY Order Comment: Comments: off of blood drawn TYPE CODE TESTS RESULT OUT OF RANGE REFERENCE UNITS LAB L501.0100 74-106 mg/dL Normal GLU 89 Result Comment: Please note revised GLUCOSE reference range effective 2017. LAB L501.1000 7-18 mg/dL High BUN 46 LAB L501.1100 0.70-1.30 mg/dL High CREAT,SERUM 1.89 Result Comment: The validity of the calculated GFR AND GFRAA in patients over 70 years has not been determined. Clinical correlation is essential. LAB L501.1110 >60 mL/min Low EST GFR 38 Result Comment: Non- GFR Calc LAB L501.1115 >60 mL/min Low EST GFR - AA 46 Result Comment: GFR Calc LAB L501.1255 ml/min Normal Estimated CRCL 34.97 LAB L501.1300 10-20 RATIO High BUN/CRE 24.3 LAB L501.2200 8.5-10 mg/dL Normal .1 CA 9.1 LAB L501.5300 136-14 mmol/L Normal 5 NA 144 LAB L501.5600 3.5-5. mmol/L Normal 1 K 3.7 LAB L501.5900 98-107 mmol/L Normal CL 98 LAB L501.6100 21.0-3 mmol/L High 2.0 CO2 42.0 LAB L501.6200 5-15 Low GAP 4 Performed By: #### L500.2500 #### [facility] [address] [place], [address] CONSULTATION Observed: 12/02/2017 Status: F Source: [place] 12:10 PM [facility] REPOSITORY [facility] Medical Records Department [address] [facility] [place] [address] Consultation 12/02/17 1203 MR#: [id number] Acct: [id number] Name: MOE CAMEJO Rep #: [id number] : 1950 66 From: Chari Downey MD PCP: Tyrone Dean Status: ADM IN Y Location: [place] [address] Problem List (1) Acute kidney injury on CKD stage III Status: Acute Consultation - Renal PCP/ Referring MD: Requesting physician: [] Primary care physician: Tyrone Dean - History of Present Illness History of Present Illness: The patient is a 66 year old M medical history of systolic heart failure and chronic kidney disease stage III. Patient presented to my office yesterday for chronic kidney disease follow-up. I found the patient in respiratory distress, lung crackles and weight gain along with the worsening kidney function. I send the patient to the emergency room for CHF decompensation admission. Patient was admitted to PCU. Patient was started on Lasix drip at 1 mL/h. patient made 2 L of urine. Patient is feeling better today. He is back to 3 L/min nasal cannula support. His leg edema is better. Kidney function is better. ROS: 12 systems review is negative except some shortness of breath, leg edema [] - Allergies Allergies: Allergies No Known Allergies Allergy (Verified 12/01/17 11:52) - Current Medications Current Medications: Current Medications Acetaminophen (Tylenol) 650 mg PO Q6H PRN PRN PRN Reason: Mild Pain (scale 0-3)/T>100.7 Al Hydroxide/Mg Hydroxide (Mylanta Ii) 30 ml PO Q6H PRN PRN PRN Reason: Gastric Burning Albuterol Sulfate (Ventolin Aerosols) 2.5 mg INHALATION Q6HWA.RT [facility] Last Admin: 12/02/17 07:16 Dose: 2.5 mg Amiodarone HCl (Cordarone) 200 mg PO DAILY [facility] Last Admin: 12/02/17 10:08 Dose: 200 mg Aspirin (Ecotrin) 81 mg PO DAILY@0800 [facility] Last Admin: 12/02/17 08:26 Dose: 81 mg Atorvastatin Calcium (Lipitor) 80 mg PO QHS [facility] Last Admin: 12/01/17 21:37 Dose: 80 mg Bisacodyl (Dulcolax) 10 mg RECTAL DAILY PRN PRN PRN Reason: Constipation Budesonide (Pulmicort Aerosol) 0.5 mg INHALATION Q12H.RT [facility] Last Admin: 12/02/17 07:17 Dose: 0.5 mg Carvedilol (Coreg) 25 mg PO BID [facility] Last Admin: 12/02/17 10:12 Dose: 25 mg Docusate Sodium (Colace) 200 mg PO BID PRN PRN PRN Reason: Constipation Ezetimibe (Zetia) 10 mg PO DAILY [facility] Last Admin: 12/02/17 10:08 Dose: 10 mg Fenofibrate (Tricor) 145 mg PO QHS [facility] Last Admin: 12/01/17 21:46 Dose: 145 mg Hydralazine HCl (Apresoline) 25 mg PO BID [facility] Last Admin: 12/02/17 10:10 Dose: Not Given Furosemide 500 mg/ (Miscellaneous Information) 50 mls @ 1 mls/hr CONT INF .Q50H [facility] PRN Reason: 10 MG/HR Last Admin: 12/01/17 17:32 Dose: 1 mls/hr Isosorbide Dinitrate (Isordil) 5 mg PO TID [facility] Last Admin: 12/02/17 06:29 Dose: 5 mg Levothyroxine Sodium (Synthroid) 112 mcg PO DAILY@0600 [facility] Last Admin: 12/02/17 06:29 Dose: 112 mcg Morphine Sulfate () 1 - 2 mg IV Q4H PRN PRN PRN Reason: severe pain/pulm edema Ondansetron HCl (Zofran) 4 mg IV Q8H PRN PRN PRN Reason: Nausea Oxycodone HCl (Oxyir) 5 mg PO Q4H PRN PRN PRN Reason: Moderate Pain (pain scale 4-5) Polyethylene Glycol (Miralax) 17 gm PO DAILY [facility] Last Admin: 12/02/17 10:07 Dose: 17 gm Potassium Chloride (K-Dur) 40 meq PO BID [facility] Stop: 12/02/17 22:01 Last Admin: 12/02/17 10:10 Dose: 40 meq Sodium Chloride () 5 - 30 ml IV UD PRN PRN Reason: SALINE FLUSH Tamsulosin HCl (Flomax) 0.4 mg PO DAILY@0830 [facility] Last Admin: 12/02/17 08:26 Dose: 0.4 mg Zolpidem Tartrate (Ambien (Generic)) 5 mg PO QHS PRN PRN PRN Reason: INSOMNIA - Past Medical History Past Medical History (Chronic Problems): Chronic Problems Warfarin-induced coagulopathy (Chronic) half-way (current) use of anticoagulants (Chronic) History of stent insertion of renal artery (Chronic) Anemia (Chronic) Bilateral atelectasis (Chronic) Respiratory failure with hypoxia and hypercapnia (Chronic) Coronary artery disease (Chronic) Peripheral arterial occlusive disease (Chronic) Pleural effusion (Chronic) Acute cor pulmonale (Chronic) Ischemic cardiomyopathy (Chronic) EF 20% on 10/27/16 Chronic anticoagulation (Chronic) On warfarin Pulmonary hypertension (Chronic) Atrial fibrillation (Chronic) Hyperlipemia (Chronic) COPD (chronic obstructive pulmonary disease) (Chronic) mild. no chronic medications Hypertension (Chronic) Urine retention (Chronic) BPH (benign prostatic hypertrophy) (Chronic) Hypothyroidism (Chronic) Former smoker, stopped smoking in distant past (Chronic) Quit in 1999 AICD (automatic cardioverter/defibrillator) present (Chronic) Pacemaker (Chronic) Diverticulosis (Chronic) Left renal artery stenosis (Chronic) Stent done in February History of PTCA (Chronic) - Past Surgical History Surgical History: angioplasty - With stent, 3 times, cataract, pacemaker implantation - AICD, - - Aortobifemoral grafting, left renal artery stent - Social History Smoking Status: Former smoker - Family History Maternal History Items: Heart Disease Paternal History Items: Heart Disease, Pulmonary Disease - Black lung - Physical Exam General: Alert, Oriented x3 HEENT: Atraumatic Oral: Moist Mucosa Neck: Supple, No JVD Lungs: Clear to auscultation, Normal air movement, No rhonchi Cardiovascular: Regular rate, Regular Rhythm, Normal S1, Normal S2 Abdomen: Bowel Sounds Present, Soft, Non Tender, Non-Distended Extremities: No clubbing, No cyanosis, - - 1 edema of lower extremities Skin: No rashes Musculoskeletal: No Tenderness to Palpation of Joints or Extremities Lymphatic: No Cervical, Supraclavicular, or Inguinal Adenopathy Neurological: Cranial nerves II-XII grossly intact, Neuro grossly intact Psych/Mental Status: Normal Affect Vital Signs Temp Pulse Resp BP Pulse Ox 97.6 F L 67 20 H 115/55 L 98 12/02/17 10:04 12/02/17 10:10 12/02/17 10:04 12/02/17 10:10 12/02/17 10:04 Oxygen Flow Rate (L/min) 3 Oxygen Delivery Method Nasal Cannula Weight: 93.7 kg Body Mass Index (BMI) 32.6 Intake and Output for Last 24 Hours Intake Total 326 / 326 506 / 506 Output Total 1500 / 2100 925 / 925 Balance -1174 / -1774 -419 / -419 Laboratory Tests Past 24 Hrs WBC 5.4 RBC 3.72 L Hgb 7.6 L Hct 28.8 L MCV 77.4 L MCH 20.4 L MCHC 26.4 L RDW 19.0 H RDW Differential 54.0 H WBC RBC Hgb Cancelled POC Glucose POC Glucose 90 Assessment/Plan 1-kidney injury on chronic kidney disease. Baseline creatinine around 1.7 most probably from cardiorenal syndrome and nephrosclerosis. Acute kidney injury this time is from cardiorenal syndrome type I. Creatinine is improving with diuresis. Last creatinine trend is 2.3-2.1 mg a deciliter. I agree to continue the same dose of Lasix drip now. Keep mean arterial pressure more than 65. Please avoid JUANITA inhibitor and ARB with diuresis. No need for renal replacement therapy. 2-hypokalemia: Most probably from renal loss in addition to metabolic alkalosis. I agree with the potassium chloride 40 mEq twice a day. Check magnesium level in the morning. 3-metabolic alkalosis. Most probably due to volume contraction. I will continue to monitor. If bicarb increase more than 45, I will give the patient 1 dose of acetazolamide. 4-acute hypoxemic respiratory failure due to CHF decompensation. Improved with diuresis. Continue the same dose of Lasix drip. Continue O2 support through nasal cannula. Cardiology service was consulted. 5-iron deficiency anemia. Patient presented with a hemoglobin 6.9. Patient received 1 unit of RBCs yesterday. I will start the patient on Venofer 1 g over 10 days. Thank you for the consult. I will continue to follow. Please do not hesitate to call me at my cell phone [phone] with any question. Chari Downey MD [phone] 12/02/17 1210 <Electronically signed by Chari Downey MD> Date Chari Downey MD Cosigner Signature (if applicable): Date CC: Tyrone Dean; Chari Downey MD; Brent Torres MD Signed CONSULTATION Observed: 12/02/2017 Status: F Source: [place] 10:54 AM [facility] REPOSITORY [facility] Medical Records Department [address] [place] [address] Consultation 12/02/17 1041 MR#: [id number] Acct: [id number] Name: MOE CAMEJO Rep #: [id number] : 1950 66 From: Brent Torres MD PCP: Tyrone Dean Status: ADM IN Location: [place] [address] Problem List (1) CHF (congestive heart failure) Status: Acute (2) Warfarin-induced coagulopathy Status: Chronic (3) Anasarca Status: Acute (4) Acute on chronic combined severe HF Status: Acute (5) Acute systolic congestive heart failure Status: Acute (6) Coronary artery disease Status: Chronic (7) Ischemic cardiomyopathy Status: Chronic Comment: EF 20% on 10/27/16 (8) Atrial fibrillation Status: Chronic (9) Hyperlipemia Status: Chronic (10) AICD (automatic cardioverter/defibrillator) present Status: Chronic (11) Pacemaker Status: Chronic (12) History of PTCA Status: Chronic Reason for Consult Date of Consultation: 12/02/17 History of Present Illness: Mister Camejo is a very pleasant 66-year-old nondiabetic gentleman with ischemic cardiomyopathy, coronary artery disease, status post AICD placement, also asymptomatic chronic persistent atrial fibrillation previously on Coumadin therapy. The patient originally presented to [facility] ER on 12/27/13 after he experienced anginal like chest pain. Patient underwent left heart catheterization which demonstrated critical in-stent restenosis of his left circumflex artery. The catheterization was done via his left groin given the severe peripheral vascular disease on the right side status post aortofemoral bypass. The patient underwent successful cutting balloon and angioplasty and drug- eluting stenting of his left circumflex with a 3.0X 20 Promus stentin December 2013, postdilated to 3.5 mm. He was found to be in sinus rhythm so his Coumadin was discontinued in place of aspirin and Plavix. In addition given his ischemic cardiomyopathy and predilection for atrial fibrillation, amiodarone therapy was initiated. Patient then returned in June 2016 underwent repeat catheterization which demonstrated widely patent LAD and left circumflex stents and a chronically occluded right coronary artery with an EF around 50-20% and moderately elevated LVEDP of 25 mmHg. on a routine pacemaker follow-up,patient was found to have bursts of asymptomatic atrial fibrillation in August 2014. At that time his Plavix was discontinued and his Coumadin was resumed. Patient denies any chest pain or angina, or palpitations. He is taking and tolerating his medicines well. He is completed cardiac rehab and exercises regularly at [facility]. Patient had a pacer interrogation around 9 months ago, indicating paroxysmal atrial fibrillation interspersed with sinus rhythm. He is essentially now on permanent atrial fibrillation and continues on lifelong Coumadin given his Chadds/Vasc score of 2. On and 02/10/15 the patient was admitted for congestive heart failure symptoms and lower extremity edema. I was not consulted at that time, and a repeat echocardiogram demonstrated an EF of 20%, moderate left atrial enlargement, mild to moderate TR, and RVSP of 34 millimeters mercury. He had Aldactone started, and was subsequently discharged. He is now here in follow-up. valerie was doing well until he was readmitted in October 2016, however I was not reconsulted. He was admitted with congestive heart failure and diuresed by Dr. Hodge. EKG showed A. fib at that time, and repeat echocardiogram showed an EF of 20%, mild to moderate TR, RVSP of 55 mmHg. He is now here in follow-up. Since discharge, he continues to have dyspnea on exertion lower extremity edema, shortness of breath but no orthopnea. He denies any AICD discharges. He is compliant with his medications. On chronic O2 therapy at 3 L saturating 86% here in the office. Patient states that he has had approximately 10 pound weight gain over the last several months, with associated worsening dyspnea on exertion, shortness of breath but no chest pain or anginal symptoms. Patient presented with acute on chronic congestive heart failure, lower extremity edema, and responded well to IV diuretic therapy. In addition he is in chronic atrial fibrillation, and his INR is 2.8 today. Patient reports that he is compliant with his medications, compliant with his salt intake, only eats homemade soups, and does not eat fast foods. He is no longer on JUANITA inhibitors due to his chronic renal insufficiency, and has been switched to Imdur and hydralazine. He was on Lasix 40 mg p.o. twice daily. His last echocardiogram was on 10/27/16 when he is admitted to the PCU for CHF. At that time he had an EF of 20%, severe left atrial enlargement, mild to moderate mitral insufficiency and an RVSP of at least 55 mmHg. Repeat echo is pending. 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 no chronic medications Hypertension (Chronic) Urine retention (Chronic) BPH (benign prostatic hypertrophy) (Chronic) Hypothyroidism (Chronic) Former smoker, stopped smoking in distant past (Chronic) Quit in 1999 AICD (automatic cardioverter/defibrillator) present (Chronic) Pacemaker (Chronic) Diverticulosis (Chronic) Left renal artery stenosis (Chronic) Stent done in February History of PTCA (Chronic) Surgical History: angioplasty - With stent, 3 times, cataract, pacemaker implantation - AICD, - - Aortobifemoral grafting, left renal artery stent - *Family History Maternal History Items: Heart Disease Paternal History Items: Heart Disease, Pulmonary Disease - Black lung Smoking Status: Former smoker Tobacco Use: Cigarettes Review of Systems - Review of Systems General: Denies: Fever, Night Sweats, Fatigue Cardiovascular: Reports: Shortness of Breath, Shortness of Breath at Rest. Denies: Chest Discomfort, Orthopnea, PND, Peripheral Edema, Palpitations, Lightheadedness, Dizziness, Near Syncope, Syncope Respiratory: Denies: Cough, Sputum Production, Hemoptysis Gastrointestinal: Denies: Hematemesis, Hematochezia, Melena Genitourinary: Denies: Dysuria, Hematuria Skin: Denies: Rash Subjectve: Patient laying in bed, no acute distress. Objective: Vital Signs Temp Pulse Resp BP Pulse Ox 97.6 F L 67 20 H 115/55 L 98 12/02/17 10:04 12/02/17 10:10 12/02/17 10:04 12/02/17 10:10 12/02/17 10:04 Oxygen Flow Rate (L/min) 3 Oxygen Delivery Method Nasal Cannula Weight: 206 lb 9.17 oz Body Mass Index (BMI) 32.6 Intake and Output for Last 24 Hours Intake Total 326 / 326 506 / 506 Output Total 1500 / 2100 925 / 925 Balance -1174 / -1774 -419 / -419 General: Awake, Alert, Oriented x 3 HEENT: PERRL, EOMI, Sclera Non Icteric Neck: Supple, Good ROM, No Lymph Node Enlargement Lungs: Diminished Aubrey Bases Cardiovascular: Irregular Rhythm, Normal S1, Normal S2, No Rubs, No Gallops 12/01/17 16:56: PT 29.4 H, INR 2.8 12/01/17 16:56: Troponin I 0.031 12/01/17 16:56: Magnesium 2.4 12/01/17 20:30: Troponin I 0.035 12/02/17 04:16: WBC 5.4, RBC 3.72 L, Hgb 7.6 L, Hct 28.8 L, MCV 77.4 L, MCH 20.4 L, MCHC 26.4 L, RDW 19.0 H, RDW Differential 54.0 H, Plt Count 147 L, MPV 9.6, Immature Gran % (Auto) 0.000, Neut % (Auto) 78.3 H, Lymph % (Auto) 11.3 L, [place] % (Auto) 10.0, Eos % (Auto) 0.2, Baso % (Auto) 0.2, Absolute Neuts (auto) 4.3, Total Counted Not Reportable 12/02/17 04:16: Sodium 143, Potassium 3.2 L, Chloride 95 L, Carbon Dioxide 43.0 H, Anion Gap 5, BUN 57 H, Creatinine 2.14 H, Est GFR (MDRD) Af Amer 40 L, Est GFR (MDRD) Non-Af 33 L, BUN/Creatinine Ratio 26.6 H, Glucose 88, Calcium 9.0, Magnesium 2.4, Triglycerides 120, Cholesterol 98, LDL Cholesterol 52, VLDL Cholesterol 24, HDL Cholesterol 22 L 12/02/17 04:16: Hgb Cancelled, Hct Cancelled Rhythm: EKG: Atrial fibrillation with controlled ventricular response and paced rhythms. Nonspecific ST and T-wave changes. ECHO: Stress Test: Cardiac Cath: PCI: CT Surgery: Holter monitor: EPS: PPM: CXR: Chest CT Scan: Assessment/Plan 1. Ischemic cardiomyopathy: The patient has acute on chronic congestive heart failure with worsening shortness of breath, dyspnea on exertion, and lower extremity edema superimposed on a proximally 10 pound weight gain over the last several months. Patient is currently on a Lasix drip, and diuresing fairly well. Recommend continuing Lasix drip with a goal of a diuresis of approximately 1.0-1.5 L negative every day until he is reached his dry weight which appears to be around 194 pounds.. We may want to consider renal consultation given his chronic renal insufficiency, and limitations of diuretic therapy and fluid removal. The patient may require hemodialysis sooner than later. I would recommend a 1500 cc fluid restriction, and continue his Coreg, Imdur, hydralazine. His amlodipine may be contributing to his lower extremity edema as well however I believe is necessary for afterload reduction at this time. In addition recommend a repeat echocardiogram to determine if he has had any worsening mitral regurgitation which may be contributing to his pulmonary hypertension and lower extremity edema. His EF at that time 1 year ago was 20% which is a known entity. Continue Juanita bandage wraps to assist with venous return. 2. Coronary artery disease: No anginal symptoms at this time. Given his chronic renal insufficiency and peripheral vascular disease I would not recommend repeat catheterization at this time. Should any catheterization be required he will require access via the left groin given his severe peripheral vascular disease in the right groin access site. 3. Hyperlipidemia: Continue statin based medications. 4. Discussed with Dr. Mota. Thank you very much for the opportunity to put dissipate in the cardiac care of your patient. Consultation time took place between 830 and 9:15 AM. Code Visit Inpatient E AND M: [id number] Init Hosp L3 12/02/17 1054 <Electronically signed by Brent Torres MD> Date Brent Torres MD Cosigner Signature (if applicable): Date CC: Tyrone Dean; Chari Downey MD; Brent Torres MD Signed HH, HEMOGLOBIN AND Collected: 12/02/2017 Status: F Source: [place] HEMATOCRIT 4:16 AM [facility] Order Comment: Comments: Posttransfusion H AND H TYPE CODE TESTS RESULT OUT OF RANGE REFERENCE UNITS LAB L100.1300 13.0-16.5 g/dl Low HGB 7.6 LAB L100.1400 40-54 % Low HCT 29.1 Performed By: #### L100.0600 #### [facility] [address] [place], [address] CBC W/DIFF, AUTOMATED Collected: 12/02/2017 Status: F Source: [place] 4:16 AM [facility] REPOSITORY TYPE CODE TESTS RESULT OUT OF RANGE REFERENCE UNITS LAB L100.1000 4.4-11.0 K/mm3 Normal WBC 5.4 LAB L100.1200 4.6-6.2 M/mm3 Low RBC 3.72 LAB L100.1300 13.0-16.5 g/dl Low HGB 7.6 LAB L100.1400 40-54 % Low HCT 28.8 LAB L100.1500 80-94 fL Low MCV 77.4 LAB L100.1600 27.0-32.0 pg Low MCH 20.4 LAB L100.1700 32-36 g/gl Low MCHC 26.4 LAB L100.1810 11.6-14.6 % High RDW CV 19.0 LAB L100.1820 35.1-43.9 fl High RDW SD 54.0 LAB L100.1900 150-450 K/mm3 Low PLT 147 LAB L100.2000 6.2-12.0 fl Normal MPV 9.6 LAB L100.2100 47-70 % High NEUT% 78.3 LAB L100.2200 19-41 % Low LY% 11.3 LAB L100.2300 0-10 % Normal MONO% 10.0 LAB L100.2400 0-5 % Normal EO% 0.2 LAB L100.2500 0-1 % Normal BASO% 0.2 LAB L100.2550 0.0-0.9 % Normal IM GRAN % 0.000 Result Comment: IG% - Immature Granulocytes (promyelocytes, myelocytes and metamyelocytes) > 1% indicates that a LEFT SHIFT is Present. LAB L100.2620 2.0-7.7 X10 3/uL Normal Absolute Neut 4.3 LAB L100.2720 0.83-4.51 X10 3/ul Low Absolute Lymph 0.61 Performed By: #### L100.0100 #### [facility] [address] [place], [address] BASIC METABOLIC Collected: 12/02/2017 Status: F Source: [place] PROFILE (BMP) 4:16 AM [facility] REPOSITORY TYPE CODE TESTS RESULT OUT OF RANGE REFERENCE UNITS LAB L501.0100 74-106 mg/dL Normal GLU 88 Result Comment: Please note revised GLUCOSE reference range effective 2017. LAB L501.1000 7-18 mg/dL High BUN 57 LAB L501.1100 0.70-1.30 mg/dL High CREAT,SERUM 2.14 Result Comment: The validity of the calculated GFR AND GFRAA in patients over 70 years has not been determined. Clinical correlation is essential. LAB L501.1110 >60 mL/min Low EST GFR 33 Result Comment: Non- GFR Calc LAB L501.1115 >60 mL/min Low EST GFR - AA 40 Result Comment: GFR Calc LAB L501.1255 ml/min Normal Estimated CRCL 30.89 LAB L501.1300 10-20 RATIO High BUN/CRE 26.6 LAB L501.2200 8.5-10 mg/dL Normal .1 CA 9.0 LAB L501.5300 136-14 mmol/L Normal 5 NA 143 LAB L501.5600 3.5-5. mmol/L Low 1 K 3.2 LAB L501.5900 98-107 mmol/L Low CL 95 LAB L501.6100 21.0-3 mmol/L High 2.0 CO2 43.0 LAB L501.6200 5-15 Normal GAP 5 Performed By: #### L500.2500, L500.4100, L501.5200, L501.9520 #### [facility] [address] [place], [address] LIPID PROFILE Collected: 12/02/2017 Status: F Source: [place] 4:16 AM [facility] REPOSITORY TYPE CODE TESTS RESULT OUT OF RANGE REFERENCE UNITS LAB L501.4900 200 mg/dL Normal CHOL 98 Result Comment: <200 mg/dL Desirable 200-240 mg/dL Borderline >240 mg/dL High Risk LAB L501.5000 mg/dL Normal TRIG 120 Result Comment: The drugs N-Acetylcysteine and Metamizole may falsely depress this assay. Serum Triglycerides Reference Interval Normal <150 mg/dL Borderline high 150 - 199 mg/dL High 200 - 499 mg/dL Very High > or = 500 mg/dL LAB L501.6400 mg/dL Low HDL 22 Result Comment: The drugs N-Acetylcysteine and Metamizole may falsely depress this assay. Reference Range HDL <40 mg/dL Low HDL Cholesterol HDL >or= 60 mg/dL High HDL Cholesterol LAB L501.6500 0-130 mg/dL Normal LDL 52 LAB L501.6600 5-40 mg/dL Normal VLDL 24 Performed By: #### L500.2500, L500.4100, L501.5200, L501.9520 #### [facility] [address] [place], [address] MAGNESIUM Collected: 12/02/2017 Status: F Source: [place] 4:16 AM [facility] REPOSITORY TYPE CODE TESTS RESULT OUT OF RANGE REFERENCE UNITS LAB L501.5200 1.6-2.6 mg/dL Normal MG 2.4 Performed By: #### L500.2500, L500.4100, L501.5200, L501.9520 #### [facility] [address] [place], [address] THYROID STIM HORMONE Collected: 12/02/2017 Status: F Source: [place] (TSH) 4:16 AM [facility] REPOSITORY TYPE CODE TESTS RESULT OUT OF RANGE REFERENCE UNITS LAB L501.9520 0.358-3.74 uIU/mL Normal TSH 3.26 Performed By: #### L500.2500, L500.4100, L501.5200, L501.9520 #### [facility] [address] [place], [address] CHEST PA AND LATERAL Observed: 12/02/2017 Status: F Source: [place] 12:01 AM [facility] REPOSITORY [facility] Imaging Services [address] [place] [address] Chest PA and Lateral MR#: [id number] Acct: [id number] Name: MOE CAMEJO Rep #: [id number] : 1950 M 66 From: Tra Myrick MD PCP: Tyrone Dean Status: ADM IN Study: Chest PA and Lateral Date of Exam: 12/02/17 Exam# [id number] Ordering Dr: Keagan Augustin MD STUDY: X-RAY CHEST REASON FOR EXAM: Male, 66 years old. CHF. TECHNIQUE: PA and lateral views of the chest. COMPARISON: Comparison is made with prior study dated December 01, 2017. FINDINGS: EKG electrodes are seen. Slight increase in the right pleural effusion with underlying infiltration and/or atelectasis. New atelectasis and/or early infiltrate at the left lung base. Blunting of left costophrenic angle. Stable vascular congestion. There is mild cardiac enlargement. A left-sided ICD is seen. Normal mediastinum and lee. Normal visualized pulmonary arteries. There is atherosclerotic calcification of the aortic arch with tortuosity. There are diffuse degenerative changes of the visualized thoracic spine. Normal visualized ribs, clavicles, and shoulders. There is no demonstrated abnormality of the visualized soft tissue structures of the upper abdomen. RAD/Chest PA and Lateral IMPRESSION: Slight increase in the right pleural effusion with underlying atelectasis. New atelectasis and/or infiltrate at the left lung base. Stable vascular congestion. Electronically Signed: Tra Myrick MD at 8:09 EDT Tel [phone], Service support , CC: Tyrone Dean; Keagan Augustin MD Drop Forge Operator: Signed TROPONIN-I Collected: 12/01/2017 Status: F Source: [place] 8:30 PM [facility] REPOSITORY Order Comment: 'TROP' Serial specimen #1, #2, #3, or #4: 3 TYPE CODE TESTS RESULT OUT OF RANGE REFERENCE UNITS LAB L501.4010 <0.045 ng/mL Normal 0.035 TROPONIN-I Result Comment: TROPONIN-I EXPECTED VALUES <0.045 Negative 0.045 - 0.590 Consistent with Cardiac Damage > OR = 0.600 Critical Value Not every elevated troponin is indicative of NC. These values should be used with clinical judgement in examining the patient's clinical picture for diagnosis. To establish a diagnosis of NC versus myocardial injury, there must be a demonstrated rise and/or fall in the troponin values, in addition to ischemic symptoms, EKG changes, new regional wall motion abnormality, and/or angiographical evidence. PLEASE NOTE: REFERENCE RANGES EDITED 17 Performed By: #### L501.4010 #### [facility] [address] [place], [address] TYPE AND SCREEN Collected: 12/01/2017 Status: F Source: [place] 8:30 PM [facility] REPOSITORY Order Comment: CMV NEG? N Number of units to transfuse: 1 Reason for Ordering Blood: Acute Are the blood/blood products to be transfused? Y Is the patient having/had surgery? N RESULTS CALL[facility] TO [facility] 12/01/17 2218 Isidro Galvan. REPORT READ BACK BY SAME. Give When? When Ready Irradiated? N Leukodepleted? Y TYPE CODE TESTS RESULT OUT OF RANGE REFERENCE UNITS LAB B10.0800 A Normal BLOOD TYPE GEL POSITIVE LAB B100.4000 Normal Antibody NEGATIVE Screen Performed By: #### B101.7450 #### [facility] [address] [place], [address] RC Collected: 12/01/2017 Status: F Source: [place] 8:30 PM [facility] REPOSITORY TYPE CODE TESTS RESULT OUT OF REFERENCE UNITS RANGE LAB U100.0000 [id number] TRANSFUSED PRODUCT: T AND S with Crossmatch, Red Cells COUNT: 1 Performed By: #### U100.0000 #### [facility] - refer to report for specific site HISTORY AND PHYSICAL Observed: 12/01/2017 Status: F Source: [place] EXAM 7:55 PM [facility] REPOSITORY [facility] Medical Records Department [address] [place] [address] History and Physical 12/01/17 1618 MR#: [id number] Acct: [id number] Name: MOE CAMEJO Rep #: [id number] : 1950 66 From: Keagan Augusitn MD PCP: Tyrone Dean Status: ADM IN Y Location: [address] ADDENDUM by Keagan Auugstin MD on 12/01/17 at 1954 Code Visit Acute anemia on baseline anemia of chronic disease: Patient's hemoglobin runs around 8 g percent currently it is 6.9 g percent. 1 unit of PRBC transfusion ordered slowly. Posttransfusion H AND H. Acute hypokalemia secondary to diuretics: Potassium replacement ordered Cardiology consult ordered as the patient is on IV Lasix drip and needs aggressive diuresis with low creatinine clearance, about 28 ml/min 12/01/171954 <Electronically signed by Keagan Augustin MD> Date Keagan Augustin MD cc: Tyrone Dean; Keagan Augustin MD * Signed Problem List (1) Acute exacerbation of CHF (congestive heart failure) Status: Acute (2) Acute kidney injury on CKD stage III Status: Acute (3) Acute kidney injury superimposed on chronic kidney disease Status: Acute (4) Acute on chronic combined severe HF Status: Acute (5) Acute on chronic respiratory failure with hypoxia and hypercapnia Status: Resolved (6) Acute systolic congestive heart failure Status: Acute (7) Anasarca Status: Acute (8) CHF (congestive heart failure) Status: Acute (9) half-way (current) use of anticoagulants Status: Chronic (10) Warfarin-induced coagulopathy Status: Chronic (11) AICD (automatic cardioverter/defibrillator) present Status: Chronic (12) Acute cor pulmonale Status: Chronic (13) Anemia Status: Chronic (14) Atrial fibrillation Status: Chronic (15) BPH (benign prostatic hypertrophy) Status: Chronic (16) Bilateral atelectasis Status: Chronic (17) COPD (chronic obstructive pulmonary disease) Status: Chronic Comment: mild. no chronic medications (18) Chronic anticoagulation Status: Chronic Comment: On warfarin (19) Coronary artery disease Status: Chronic (20) Diverticulosis Status: Chronic (21) Former smoker, stopped smoking in distant past Status: Chronic Comment: Quit in 1999 (22) History of PTCA Status: Chronic (23) History of stent insertion of renal artery Status: Chronic (24) Hyperlipemia Status: Chronic (25) Hypertension Status: Chronic (26) Hypothyroidism Status: Chronic (27) Ischemic cardiomyopathy Status: Chronic Comment: EF 20% on 10/27/16 (28) Left renal artery stenosis Status: Chronic Comment: Stent done in February (29) Pacemaker Status: Chronic (30) Peripheral arterial occlusive disease Status: Chronic (31) Pleural effusion Status: Chronic (32) Pulmonary hypertension Status: Chronic (33) Respiratory failure with hypoxia and hypercapnia Status: Chronic (34) Urine retention Status: Chronic History of Present Illness Date of Admission: 12/01/17 Chief Complaint: Bilateral Lower extremity edema The patient is a 66 year old M with multiple comorbidities including chronic systolic systolic heart failure with ischemic cardiomyopathy, EF 20%, coronary artery disease status post 3 stents came to ER with progressive worsening of bilateral lower extremity edema and mild shortness of breath on exertion. Patient denies chest pain, PND although he sleeps in prop-up position. Patient was last admitted on August 13 -2017 for acute on chronic combined severe heart failure and acute kidney injury on CKD, for similar condition Patient is on Lasix 60 mg twice daily and follows Dr. Torres and Dr. Tavarez Chest x-ray shows right pleural effusion with right basilar atelectasis. Patient also has history of COPD and is on 3 L of home oxygen [] Past Medical History Past Medical History (Chronic Problems): Chronic Problems Warfarin-induced coagulopathy (Chronic) half-way (current) use of anticoagulants (Chronic) History of stent insertion of renal artery (Chronic) Anemia (Chronic) Bilateral atelectasis (Chronic) Respiratory failure with hypoxia and hypercapnia (Chronic) Coronary artery disease (Chronic) Peripheral arterial occlusive disease (Chronic) Pleural effusion (Chronic) Acute cor pulmonale (Chronic) Ischemic cardiomyopathy (Chronic) EF 20% on 10/27/16 Chronic anticoagulation (Chronic) On warfarin Pulmonary hypertension (Chronic) Atrial fibrillation (Chronic) Hyperlipemia (Chronic) COPD (chronic obstructive pulmonary disease) (Chronic) mild. no chronic medications Hypertension (Chronic) Urine retention (Chronic) BPH (benign prostatic hypertrophy) (Chronic) Hypothyroidism (Chronic) Former smoker, stopped smoking in distant past (Chronic) Quit in 1999 AICD (automatic cardioverter/defibrillator) present (Chronic) Pacemaker (Chronic) Diverticulosis (Chronic) Left renal artery stenosis (Chronic) Stent done in February History of PTCA (Chronic) Allergies No Known Allergies Allergy (Verified 12/01/17 11:52) Home Medications: Ambulatory Orders Medication Instructions Recorded Albuterol IH (ProAir) [Proair Hfa 1 - 2 puff INHALATION Q4H PRN PRN 12/01/17 Surgical History: angioplasty - With stent, 3 times, cataract, pacemaker implantation - AICD, - - Aortobifemoral grafting, left renal artery stent Smoking Status: Former smoker - *Family History Maternal History Items: Heart Disease Paternal History Items: Heart Disease, Pulmonary Disease - Black lung Review of Systems Constitutional: Reports: Malaise, Weakness, Fatigue. Denies: Chills, Fever, Weight Change HEENT: Denies: Head Aches, Sinus Congestion, Sinus Drainage Cardiovascular: Reports: Edema, Orthopnea. Denies: Chest Pain, Palpitations, Paroxysmal Noc. Dyspnea Respiratory: Reports: Cough - Chronic cough, no change, Shortness of breath upon exertion. Denies: Shortness of breath at rest, Sputum production Gastrointestinal: Denies: Abdominal Pain, Nausea, Vomiting Genitourinary: Denies: Dysuria Musculoskeletal: Reports: Joint Pain. Denies: Joint Tenderness Skin: Reports: Skin Changes - Venous congestion from lower extremity edema. Denies: Rash, Wounds Neurological: Denies: Numbness, Tingling, Focal weakness Psychiatric: Denies: Anxiety, Depression, Homicidal Ideations, Suicidal Ideations Hematologic/ Lymphatic: Denies: Easy Bruising, Easy Bleeding VTE Information - Inpt Only VTE Present on Admission: No VTE Mechan Device Prophylaxis: Knee High ABBIE Hose VTE Pharm Prophylaxis ordered?: No Reason prophylaxis not ordered:: Procedure Not Indicated - On Coumadin - Physical Exam General: Alert, Oriented x3, Cooperative HEENT: Atraumatic, PERRLA, EOMI, Normocephalic Oral: Dry Mucosa Neck: Supple, No JVD, Negative Carotid Bruits Lungs: Diminished - Air entry diminished in both lungs, right worse than left. Right moderate pleural effusion., Rhonchi, Short of Breath Cardiovascular: Regular rate, No murmurs Abdomen: Bowel Sounds Present, Soft, Non Tender, Distended, - - Shifting dullness suggestive of mild ascites Extremities: Capillary Refill Less than 3 Seconds, Edema Skin: No rashes, No breakdown Musculoskeletal: No Tenderness to Palpation of Joints or Extremities, Arthritic Changes Neurological: Cranial nerves II-XII grossly intact, Neuro grossly intact Psych/Mental Status: Normal Affect, Appropriate Vital Signs Temp Pulse Resp BP Pulse Ox 97.1 F L 64 16 118/57 L 99 12/01/17 11:50 12/01/17 15:44 12/01/17 15:44 12/01/17 15:44 12/01/17 15:44 Assessment/Plan The patient is a 66 year old M with multiple comorbidities including chronic systolic systolic heart failure with ischemic cardiomyopathy, EF 20%, coronary artery disease status post 3 stents came to ER with progressive worsening of bilateral lower extremity edema and mild shortness of breath on exertion. Patient denies chest pain, PND although he sleeps in prop-up position. 2D echo in October 2016 shows EF 20% with akinetic apex and severely hypokinetic anterior apex and rest of the wall hypokinetic, LA severely enlarged, RA mildly enlarged, 1-2+ MR, mild papillary muscle dysfunction of mitral valve. Mild TR, RVSP of 55 mmHg. Aortic sclerosis no stenosis. Trivial pericardial effusion. Status post AICD Patient was last admitted on August 13 -2017 for acute on chronic combined severe heart failure and acute kidney injury on CKD, for similar condition Patient is on Lasix 60 mg twice daily and follows Dr. Torres and Dr. Tavarez Chest x-ray shows right pleural effusion with right basilar atelectasis. Patient also has history of COPD and is on 3 L of home oxygen. 1. Acute on chronic combined severe systolic and diastolic heart failure DUE to ischemic cardiomyopathy status post AICD; exact precipitating factor unclear: Patient is being admitted on the cardiac floor, PCU. On IV furosemide drip, 10 mg/h. Agee catheter insertion. On aspirin, beta-maximiliano, low-dose Isordil 5 mg 3 times daily and hydralazine. Cycle cardiac enzymes. Twelve-lead EKG shows A. fib at [address]-T changes. Patient had echo as mentioned above. If needed, can consult Dr. Torres. 2. chronic respiratory failure due to multiple comorbidities, predominantly chronic heart failure associated with bilateral pleural effusion, right more than left and bilateral atelectasis COPD: On oxygen through nasal cannula to keep pulse ox about 90%. If needed can put on BiPAP for respiratory support. Patient baseline is 3 L/min and was on 4 L in the ER. 3. Respiratory conditions: COPD, bilateral pleural effusion, right more than left and bilateral atelectasis: Repeat chest x-ray PA and lateral tomorrow am. Patient is not acutely short of breath and I do not think he needs thoracocentesis at this time. On Lasix drip 4. Acute kidney injury on CKD stage III: Currently, creatinine is 2.29, BUN 58. Last time he was discharged with creatinine about 1.65 with estimated GFR about 40 mL/min, that his baseline. will consult [place] [facility] to further manage Lasix drip, kidney function as I suspect that his creatinine would further increase on Lasix drip. 5. Hypokalemia due to AKA on CKD stage III. On potassium replacement 6. Coronary artery status post 3 stents: On medical management for now. Rest as mentioned above. 7. Chronic atrial fibrillation on Coumadin: Rate is controlled. INR is pending 8. Anasarca: Patient has ascites, bilateral pleural effusion and bilateral lower extremity due to severe heart failure. 9.. Multiple comorbidities includes hypertension, severe pulmonary hypertension, peripheral arterial occlusive disease status post aortic bypass graft, dyslipidemia, BPH with urinary retention, possible bladder outlet obstruction left renal artery stenosis status post stenting February 2008, morbid obesity: This multiple comorbidities complicates the present care. PT and OT ordered. Home medication reconciliation done. Laboratory Results 12/01/17 13:40: WBC 4.1 L, RBC 3.45 L, Hgb 6.9 L, Hct 26.5 L, MCV 76.8 L, MCH 20.0 L, MCHC 26.0 L, RDW 19.0 H, RDW Differential 51.1 H, Plt Count 170, MPV 9.7, Immature Gran % (Auto) 0.000, Neut % (Auto) 76.8 H, Lymph % (Auto) 12.4 L, [place] % (Auto) 10.4 H, Eos % (Auto) 0.2, Baso % (Auto) 0.2, Absolute Neuts (auto) 3.2, Absolute Lymphs (auto) 0.51 L, Total Counted Not Reportable, Platelet Estimate ADEQUATE, Hypochromasia 3+, Anisocytosis 1+, Microcytosis 1+ 12/01/17 13:40: Sodium 140, Potassium 3.1 L, Chloride 94 L, Carbon Dioxide 41.0 H, Anion Gap 5, BUN 58 H, Creatinine 2.29 H, Estim Creat Clear Calc 28.86, Est GFR (MDRD) Af Amer 37 L, Est GFR (MDRD) Non-Af 30 L, BUN/Creatinine Ratio 25.3 H, Glucose 92, Calcium 8.9, Troponin I 0.026 Clinical Impression(s) from Imaging Studies Chest X-Ray 12/01/17 13:29 IMPRESSION: Increasing right pleural effusion with right basilar atelectasis and/or infiltration. Code Visit Inpatient E AND M: [id number] Init Hosp L3 12/01/17 1648 <Electronically signed by Keagan Augustin MD> Date Keagan Augustin MD Cosigner Signature: Date (if applicable) CC: Tyrone Dean; Keagan Augustin MD Signed BEDSIDE GLUCOSE Collected: 12/01/2017 Status: F Source: [place] 5:14 PM [facility] REPOSITORY TYPE CODE TESTS RESULT OUT OF RANGE REFERENCE UNITS LAB L501.080 70-110 mg/dL Normal BEDSIDE GLU 90 Result Comment: MANAGEMENT OF PATIENT CARE PER NURSING PROTOCOL Performed By: #### L501.080 #### [facility] Point of Care [address] [place], [place] [address] MAGNESIUM Collected: 12/01/2017 Status: F Source: [place] 4:56 PM [facility] REPOSITORY TYPE CODE TESTS RESULT OUT OF RANGE REFERENCE UNITS LAB L501.5200 1.6-2.6 mg/dL Normal MG 2.4 Performed By: #### L501.5200 #### [facility] [address] [place], [address] PROTHROMBIN TIME W/INR Collected: 12/01/2017 Status: F Source: [place] 4:56 PM [facility] REPOSITORY TYPE CODE TESTS RESULT OUT OF RANGE REFERENCE UNITS LAB L300.4150 11.7-14.9 SECONDS High PROTIME 29.4 LAB L300.4200 Normal INR 2.8 Performed By: #### L300.3900 #### [facility] [address] [place], [address] EMERGENCY DEPARTMENT Observed: 12/01/2017 Status: F Source: [place] SUMMARY 3:40 PM [facility] REPOSITORY [facility] Medical Records Department [address] [facility] [place] [address] Emergency Department Summary 12/01/17 1525 MR#: [id number] Acct: [id number] Name: MOE CAMEJO Rep #: [id number] : 1950 66 From: Milad Lofton MD PCP: Tyrone Dean Status: REG ER ADDENDUM by MILAD LOFTON MD on 12/01/17 at 1540 Additional Impression: Right pleural effusion Date Milad Lofton MD cc: Tyrone Dean * Signed History of Present Illness Chief Complaint: Edema Informant: Patient, Family Onset: Days - 3-4 Context: Gradual Onset Timing: Continuous Quality: Swollen Location: both legs and lower abdomen Current Severity: Severe Maximum Severity: Severe Worsened by: nothing Relieved by: nothing despite taking his Lasix Associated Symptoms: CAVAZOS, orthopnea Narrative: Patient states he has been having significant dyspnea with a very light exertion. Denies any chest discomfort. He states his legs feel very heavy and they prevent him from walking very far as well. He is feeling fatigued and very weak. He has a history of ischemic cardiomyopathy, as well as chronic kidney disease. He states that he has been taking his Lasix and urinating but getting more and more swollen. - Past Medical History (1) History of stent insertion of renal artery Status: Chronic (2) Anemia Status: Chronic (3) Coronary artery disease Status: Chronic (4) Peripheral arterial occlusive disease Status: Chronic (5) Pleural effusion Status: Chronic (6) Ischemic cardiomyopathy Status: Chronic Comment: EF 20% on 10/27/16 (7) Pulmonary hypertension Status: Chronic (8) Atrial fibrillation Status: Chronic (9) Hyperlipemia Status: Chronic (10) COPD (chronic obstructive pulmonary disease) Status: Chronic Comment: mild. no chronic medications (11) Hypertension Status: Chronic (12) BPH (benign prostatic hypertrophy) Status: Chronic (13) Hypothyroidism Status: Chronic (14) AICD (automatic cardioverter/defibrillator) present Status: Chronic (15) Pacemaker Status: Chronic (16) Diverticulosis Status: Chronic (17) Left renal artery stenosis Status: Chronic Comment: Stent done in February (18) History of PTCA Status: Chronic Past Medical History - Allergies and Home Meds Allergies/Adverse Reactions: Allergies No Known Allergies Allergy (Verified 12/01/17 11:52) Home Medications: Home Medications Medication Instructions Recorded Albuterol IH (ProAir) [Proair Hfa 1 - 2 puff INHALATION Q4H PRN PRN 12/01/17 Primary Care Physician: Tyrone Dean [Primary Care Provider] - Surgical History: angioplasty - With stent, 3 times, cataract, pacemaker implantation - AICD, - - Aortobifemoral grafting, left renal artery stent Smoking Status: Former smoker - Family History Maternal Family History: Reports: Heart Disease Paternal Family History: Reports: Heart Disease, Pulmonary Disease - Black lung Review of Systems General: Reports: Malaise - fatigue. Denies: Chills, Fever, Sweats Eyes: Denies: Visual changes - bilaterally, Diplopia ENT: Denies: Rhinorrhea, Sore throat Cardiovascular: Denies: Chest pain, Palpitations Respiratory: Reports: Dyspnea, Dyspnea on exertion, Orthopnea. Denies: Cough, Paroxysmal nocturnal dyspnea Gastrointestinal: Denies: Abdominal pain, Nausea, Vomiting, Diarrhea, Melena, Hematochezia Genitourinary: Denies: Dysuria, Hematuria, Frequency Musculoskeletal: Reports: Swelling, Extremity Pain - tight due to the swelling Skin: Denies: Rash, Wounds Neurological: Denies: Headache, Weakness, Numbness Psych: Denies: Depression, Suicidal thoughts Endocrine: Denies: Polyuria, Polydipsia Hematologic: Reports: Easy bruising, Easy bleeding Allergy: Denies: Swelling of the mouth, Swelling of the tongue Physical Exam Vital Signs/Narrative: Vital Signs 12/01/17 15:20 65 16 120/70 100 12/01/17 13:17 62 16 121/66 H 100 12/01/17 11:50 97.1 F L 82 22 H 88/59 L 99 Inital Vital Signs reviewed: Yes General: Well nourished, Well developed, - - nad Head: Normocephalic, Atraumatic Eyes: Perrl, EOMI ENT: Moist mucous membranes, No rhinorrhea Neck: Supple, Nontender, - - + JVD Cardiovascular: Regular rate, Regular rhythm, No murmurs, Normal S2, - - Split S1 Respiratory: No distress, Chest nontender, Wheezing, Diminished - throughout Abdomen: Soft, Nontender, Nondistended, Normal bowel sounds Back: Nontender, Normal Inspection Extremities: Nontender - 4+ BLE, symmetric, and into lower 1/2 of abdominal wall, Edema - 4+ BLE and into lower 1/2 of abdominal wall Skin: Normal color, No rash Neurological: Alert, Oriented x3, Cranial nerves II-XII grossly intact, Normal Strength - relatively weaker in BLE, likely due to weight of legs w/ edema c/w BUE, Normal Sensation Psychological: Normal affect Diagnostic/Tx/Re-eval Impressions Chest X-Ray 12/01/17 13:29 IMPRESSION: Increasing right pleural effusion with right basilar atelectasis and/or infiltration. Electronically Signed: Tra Myrick MD at 14:32 EDT Tel [phone], Service support , 12/01/17 13:29 Chest PA and Lateral [RAD] Stat Laboratory Results - Rhythm Strip Rhythm Strip: paced Rate: 75 Ectopy: PVC(s) - EKG 1 Interpretation: Atrial Fibrillation - w/ ventricular pace and capture at rate of 67, LBBB pattern. no acute injury. - Medical Decision Making Given IV Lasix 60 mg, he did urinate several times with that. However with his worsening effusion, peripheral anasarca, and worsening anemia, I think he will benefit from admission to the hospital. Discussed with Dr. Augustin. Patient is already feeling a little better with regards to his breathing, however he has not exerted himself yet and he had significant dyspnea with very little exertion at home. Will admit PCU. ED Disposition - Plan for ED Patient: Disposition: Acute Care Hospital [facility] Chief Complaint: Edema Diagnosis: Anasarca, Anemia, Acute kidney injury on CKD stage III, Acute exacerbation of CHF (congestive heart failure) What to do if you have Problems For any increased pain, shortness of breath, bleeding, nausea or vomiting, chest pain, or any unexpected problems, contact your Primary Care Provider. Call [facility] ([phone]) or report to the closest Emergency Room. Call 911 if necessary. 12/01/17 1539 <Electronically signed by Milad Lofton MD> Date Milad Lofton MD Cosigner Signature (If Indicated): Date CC: Tyrone Dean CBC W/DIFF, AUTOMATED Collected: 12/01/2017 Status: F Source: [place] 1:40 PM [facility] REPOSITORY TYPE CODE TESTS RESULT OUT OF RANGE REFERENCE UNITS LAB L100.1000 4.4-11.0 K/mm3 Low WBC 4.1 LAB L100.1200 4.6-6.2 M/mm3 Low RBC 3.45 LAB L100.1300 13.0-16.5 g/dl Low HGB 6.9 LAB L100.1400 40-54 % Low HCT 26.5 LAB L100.1500 80-94 fL Low MCV 76.8 LAB L100.1600 27.0-32.0 pg Low MCH 20.0 LAB L100.1700 32-36 g/gl Low MCHC 26.0 LAB L100.1810 11.6-14.6 % High RDW CV 19.0 LAB L100.1820 35.1-43.9 fl High RDW SD 51.1 LAB L100.1900 150-450 K/mm3 Normal PLT 170 LAB L100.2000 6.2-12.0 fl Normal MPV 9.7 LAB L100.2100 47-70 % High NEUT% 76.8 LAB L100.2200 19-41 % Low LY% 12.4 LAB L100.2300 0-10 % High MONO% 10.4 LAB L100.2400 0-5 % Normal EO% 0.2 LAB L100.2500 0-1 % Normal BASO% 0.2 LAB L100.2550 0.0-0.9 % Normal IM GRAN % 0.000 Result Comment: IG% - Immature Granulocytes (promyelocytes, myelocytes and metamyelocytes) > 1% indicates that a LEFT SHIFT is Present. LAB L100.2620 2.0-7.7 X10 3/uL Absolute Neut Normal 3.2 LAB L100.2720 0.83-4.51 X10 3/ul Low Absolute Lymph 0.51 LAB L100.5500 ADEQ PLT EST Normal ADEQUATE LAB L100.7300 ANISO Normal 1+ LAB L100.7600 HYPOCHROMASIA Normal 3+ LAB L100.7700 MICROCYTES Normal 1+ Performed By: #### L100.0100 #### [facility] [address] [place], [address] BASIC METABOLIC Collected: 12/01/2017 Status: F Source: [place] PROFILE ([facility]) 1:40 PM [facility] REPOSITORY TYPE CODE TESTS RESULT OUT OF RANGE REFERENCE UNITS LAB L501.0100 74-106 mg/dL Normal GLU 92 Result Comment: Please note revised GLUCOSE reference range effective 2017. LAB L501.1000 7-18 mg/dL High BUN 58 LAB L501.1100 0.70-1.30 mg/dL High CREAT,SERUM 2.29 Result Comment: The validity of the calculated GFR AND GFRAA in patients over 70 years has not been determined. Clinical correlation is essential. LAB L501.1110 >60 mL/min Low EST GFR 30 Result Comment: Non- GFR Calc LAB L501.1115 >60 mL/min Low EST GFR - AA 37 Result Comment: GFR Calc LAB L501.1255 ml/min Normal Estimated CRCL 28.86 LAB L501.1300 10-20 RATIO High BUN/CRE 25.3 LAB L501.2200 8.5-10 mg/dL Normal .1 CA 8.9 LAB L501.5300 136-14 mmol/L Normal 5 NA 140 LAB L501.5600 3.5-5. mmol/L Low 1 K 3.1 LAB L501.5900 98-107 mmol/L Low CL 94 LAB L501.6100 21.0-3 mmol/L High 2.0 CO2 41.0 LAB L501.6200 5-15 Normal GAP 5 Performed By: #### L500.2500, L501.4010 #### [facility] [address] [place], [address] TROPONIN-I Collected: 12/01/2017 Status: F Source: [place] 1:40 PM [facility] REPOSITORY TYPE CODE TESTS RESULT OUT OF RANGE REFERENCE UNITS LAB L501.4010 <0.045 ng/mL Normal 0.026 TROPONIN-I Result Comment: TROPONIN-I EXPECTED VALUES <0.045 Negative 0.045 - 0.590 Consistent with Cardiac Damage > OR = 0.600 Critical Value Not every elevated troponin is indicative of NC. These values should be used with clinical judgement in examining the patient's clinical picture for diagnosis. To establish a diagnosis of NC versus myocardial injury, there must be a demonstrated rise and/or fall in the troponin values, in addition to ischemic symptoms, EKG changes, new regional wall motion abnormality, and/or angiographical evidence. PLEASE NOTE: REFERENCE RANGES EDITED 17 Performed By: #### L500.2500, L501.4010 #### [facility] [address] [place], [address] CHEST PA AND LATERAL Observed: 12/01/2017 Status: F Source: [place] 1:31 PM [facility] REPOSITORY [facility] Imaging Services [address] [place] [address] Chest PA and Lateral MR#: [id number] Acct: [id number] Name: MOE CAMEJO Rep #: [id number] : 1950 M 66 From: Tra Myrick MD PCP: Tyrone Dean Status: REG ER Study: Chest PA and Lateral Date of Exam: 12/01/17 Exam# [id number] Ordering Dr: Milad Lofton MD STUDY: X-RAY CHEST REASON FOR EXAM: Male, 66 years old. Shortness of breath/dyspnea. TECHNIQUE: PA and lateral views of the chest. COMPARISON: Comparison is made with prior study dated August 16, 2017. FINDINGS: EKG electrodes are seen. Small right pleural effusion with underlying infiltration and/or atelectasis. This has progressed as compared to prior study. Persistent blunting of the posterior left costophrenic angle. Normal size heart. A left-sided ICD is seen. Normal mediastinum and lee. Normal visualized pulmonary arteries. There is atherosclerotic calcification of the aortic arch with tortuosity. There are degenerative changes of the visualized thoracic spine. Normal visualized ribs, clavicles, and shoulders. There is no demonstrated abnormality of the visualized soft tissue structures of the upper abdomen. RAD/Chest PA and Lateral IMPRESSION: Increasing right pleural effusion with right basilar atelectasis and/or infiltration. Electronically Signed: Tra Myrick MD at 14:32 EDT Tel [phone], Service support , CC: Tyrone Dean; MILAD LOFTON MD Drop Forge Operator: Signed URINALYSIS, COMPLETE Collected: 11/26/2017 Status: F Source: [place] 6:53 AM [facility] REPOSITORY Order Comment: How was Urine Obtained? CLEAN CATCH TYPE CODE TESTS RESULT OUT OF RANGE REFERENCE UNITS LAB L400.3000 Yellow COLOR Normal Yellow LAB L400.3050 Clear Normal CLARITY Sl. Cloudy LAB L400.3200 Normal mg/dl Normal GLUCOSE, UR Normal LAB L400.3300 Negative mg/dL Normal BILIRUBIN URINE Negative LAB L400.3400 Negative mg/dl Normal KETONE UR Negative LAB L400.3465 1.002-1.030 Normal SP.GR. DIPSTX 1.010 LAB L400.3550 5.0 - 8.0 pH UR Normal 6.5 LAB L400.3600 Negative mg/dl High PROT 15 DIPSTX LAB L400.3700 Normal mg/dl Normal UROBILI Normal LAB L400.3750 Negative Normal NITRITE UR Negative LAB L400.3780 Negative /ul High 10 OCCULT BLOOD-UR LAB L400.3800 Negative /ul LEUK Normal ESTERASE Negative LAB L400.4050 0-5 /hpf WBC Normal 0-5 SEEN LAB L400.4100 0-5 /hpf Normal RBC-UA 0-5 SEEN LAB L400.4150 0-5 /hpf SQUAM Normal EPI 5-10 SEEN LAB L400.4300 None Seen /hpf Normal BACTERIA RARE LAB L400.4350 <or=2+ /hpf 1+ Normal MUCUS, URINE Performed By: #### L400.0001 #### [facility] [address] [place], [address] CBC-COMPLETE BLOOD CNT Collected: 11/26/2017 Status: F Source: [place] NO DIFF 6:53 AM [facility] REPOSITORY TYPE CODE TESTS RESULT OUT OF RANGE REFERENCE UNITS LAB L100.1000 4.4-11.0 K/mm3 Normal WBC 5.6 LAB L100.1200 4.6-6.2 M/mm3 Low RBC 3.66 LAB L100.1300 13.0-16.5 g/dl Low HGB 7.3 LAB L100.1400 40-54 % Low HCT 28.0 LAB L100.1500 80-94 fL Low MCV 76.5 LAB L100.1600 27.0-32.0 pg Low MCH 19.9 LAB L100.1700 32-36 g/gl Low MCHC 26.1 LAB L100.1810 11.6-14.6 % High RDW CV 18.7 LAB L100.1820 35.1-43.9 fl High RDW SD 52.2 LAB L100.1900 150-450 K/mm3 Low PLT 148 LAB L100.2000 6.2-12.0 fl Normal MPV 10.0 Performed By: #### L100.0500, L100.9950, L100.4500 #### [facility] [address] [place], [address] RETIC PANEL Collected: 11/26/2017 Status: F Source: [place] 6:53 AM [facility] REPOSITORY TYPE CODE TESTS RESULT OUT OF RANGE REFERENCE UNITS LAB L101.0000 0.5-1.5 % High RETIC 1.79 LAB L101.0060 3.00-15.90 % IM Normal RET FRACTION 14.10 LAB L101.0090 30-35 pg Low RET-HE 15.1 LAB L101.0110 1.0-7.9 % Normal IPF 6.6 Result Comment: Low PLT + Low IPF suggest a bone marrow production disorder Low PLT + high IPF suggests peripheral destruction (e.g.ITP, TTP, HIT, DIC, autoimmune) or bone marrow recovery Trending of serial IPF measurements is recommended when evaluating for bone marrow respones Value above normal range indicates an increase in RBC cellular response from bone marrow. Performed By: #### L100.0500, L100.9950, L100.4500 #### [facility] [address] [place], [address] DIFFERENTIAL COMMENT Collected: 11/26/2017 Status: F Source: [place] 6:53 AM [facility] REPOSITORY TYPE CODE TESTS RESULT OUT OF RANGE REFERENCE UNITS LAB L100.4500 Normal SMEAR COMMENT Result Comment: ANISOCYTOSIS Performed By: #### L100.0500, L100.9950, L100.4500 #### [facility] [address] [place], [place], [address] PROTEIN+CREATININE Collected: Status: F Source: [place] RATIO,URINE 11/26/2017 6:53 AM [facility] REPOSITORY TYPE CODE TESTS RESULT OUT OF RANGE REFERENCE UNITS LAB L501.1200 NO RANGE EST. mg/dL Normal UR CREAT 46.60 LAB L501.1930 <11.9 mg/dL High 21.0 PROTEIN,UR.R AN. LAB L501.1940 0-200 mg/g CRE High PROT:CRE 451 RATIO Performed By: #### L501.0900 #### [facility] [address] [place], [place], [address] RENAL PROFILE Collected: 11/26/2017 Status: F Source: [place] 6:53 AM [facility] REPOSITORY TYPE CODE TESTS RESULT OUT OF RANGE REFERENCE UNITS LAB L501.0100 74-106 mg/dL Normal GLU 89 Result Comment: Please note revised GLUCOSE reference range effective 2017. LAB L501.1000 7-18 mg/dL High BUN 58 LAB L501.1100 0.70-1.30 mg/dL High CREAT,SERUM 2.30 Result Comment: The validity of the calculated GFR AND GFRAA in patients over 70 years has not been determined. Clinical correlation is essential. LAB L501.1110 >60 mL/min Low EST GFR 30 Result Comment: Non- GFR Calc LAB L501.1115 >60 mL/min Low EST GFR - AA 37 Result Comment: GFR Calc LAB L501.1300 10-20 RATIO High BUN/CRE 25.2 LAB L501.1800 3.2-5.0 g/dL Low ALB 3.1 LAB L501.2200 8.5-10.1 mg/dL CA Normal 8.6 LAB L501.2300 2.5-4.9 mg/dL Normal PHOS 3.4 LAB L501.5300 136-145 mmol/L NA Normal 141 LAB L501.5600 3.5-5.1 mmol/L Low K 3.2 LAB L501.5900 98-107 mmol/L Low CL 95 LAB L501.6100 21.0-32.0 mmol/L High CO2 40.0 Performed By: #### L500.3600, L503.6075, L503.6150, L503.6550 #### [facility] [address] [place], [place], [id number] IRON BINDING Collected: 11/26/2017 Status: F Source: [place] CAPACITY,TOTAL 6:53 AM [facility] REPOSITORY TYPE CODE TESTS RESULT OUT OF RANGE REFERENCE UNITS LAB L503.6075 250-450 ug/dL High TIBC 615 Performed By: #### L500.3600, L503.6075, L503.6150, L503.6550 #### [facility] [address] [place], [place], [address] IRON Collected: 11/26/2017 Status: F Source: [place] 6:53 AM [facility] REPOSITORY TYPE CODE TESTS RESULT OUT OF RANGE REFERENCE UNITS LAB L503.6150 65-175 ug/dL Low IRON 21 Performed By: #### L500.3600, L503.6075, L503.6150, L503.6550 #### [facility] [address] [place], [address] FERRITIN Collected: 11/26/2017 Status: F Source: [place] 6:53 AM [facility] REPOSITORY TYPE CODE TESTS RESULT OUT OF RANGE REFERENCE UNITS LAB L503.6550 26-388 ng/mL Normal FERRITIN 41 Performed By: #### L500.3600, L503.6075, L503.6150, L503.6550 #### [facility] [address] [place], [address] VITAMIN B12 Collected: 11/26/2017 Status: F Source: [place] 6:53 AM [facility] REPOSITORY TYPE CODE TESTS RESULT OUT OF RANGE REFERENCE UNITS LAB L503.0105 211-911 pg/mL Normal Vitamin B12 599 Performed By: #### L503.0105, L506.1000 #### [facility] [place], [address] VITAMIN D,25 HYDROXY Collected: 11/26/2017 Status: F Source: [place] 6:53 AM [facility] REPOSITORY TYPE CODE TESTS RESULT OUT OF REFERENCE UNITS RANGE LAB L506.1000 29.95-100.01 ng/mL Low Vitamin D 20.3 25-OH Result Comment: Vitamin D 25(OH) Status Range Deficiency <20 ng/mL (50nmol/L) Insuffciency 20 - 30 ng/mL (50 - 75 nmol/L) Sufficiency 30 - 100 ng/mL (75 - 250 nmol/L) Toxicity >100 ng/mL (>250 nmol/L) Performed By: #### L503.0105, L506.1000 #### [facility] [address] [place], [address] PTHIN Collected: 11/26/2017 Status: F Source: [place] 6:53 AM [facility] REPOSITORY TYPE CODE TESTS RESULT OUT OF RANGE REFERENCE UNITS LAB L509.1000 18.4-80.1 pg/mL High PTHIN 180.8 Performed By: #### L509.1000 #### [facility] [address] [place], [address] PROTHROMBIN TIME W/INR Collected: 11/16/2017 Status: F Source: [place] 9:05 AM [facility] REPOSITORY TYPE CODE TESTS RESULT OUT OF RANGE REFERENCE UNITS LAB L300.4150 11.7-14.9 SECONDS High PROTIME 21.4 LAB L300.4200 Normal INR 1.9 Performed By: #### L300.3900 #### [facility] [address] [place], [address] PACEMAKER CHECK Observed: 11/13/2017 Status: F Source: [place] 11:34 AM [facility] REPOSITORY [facility] [address] [place] [address] Pacemaker Check Date of Service: 10/28/17 1029 MR#: [id number] Acct: [id number] Name: NELLMOE Brenda Rep #: [id number] : 1950 From: Claudia Bradley Age/Sex: 66/M Location: [facility] [place] Status: Signed Comments Summary Comments: Dual Chamber ICD Evaluation: Interrogation shows no VT/VF episodes and 236 MS episodes, 100% total time. Left pectoral pocket/incision w/o s/s of infection or erosion. Pt offers no cardiac complaints. Presenting rhythm shows ventricular paced @ 80 ppm with underlying atrial fib. Pt on Coumadin and Amiodarone. FAMILY COACH=45.9%. B.V and CT stable. Lead impedances, sensing and ventricular pace/sense threshold remain stable. Unable to check atrial threshold d/t atrial fib. No parameter changes made. Counters cleared. Next f/u appt scheduled for in 3 mos. 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 Jose Alfredo Matt Patient Characteristics Atrial Indication: sick sinus syndrome Patient Substrate: Ischemic cardiomyopathy Ejection fraction %: 20 to 24 (10/27/2016) By: Echo Underlying rhythm: Sinus rhythm Device Characteristics Device: Dual Chamber Type: Implantable defibrillator Remote Follow-Up: No Leads Lead #1 Fur Dressing Supervisor Lead 1: [employer] Model Lead 1: [id number] Serial# Lead 1: [id number] Date Implanted Lead 1: 11/30/07 Position Lead 1: RA Lead #2 Fur Dressing Supervisor Lead 2: [employer] Model Lead 2: 6945 Serial# Lead 2: [id number] Date Implanted Lead 2: 11/24/99 Position Lead 2: RV Diagnostics Pacing % RA Pacin.7 % RV Pacin.9 Mode Switching Total # Episodes: 236 % Mode switched: 100 Arrhythmias VF Episodes: 0 Fast VT Episodes: 0 Slow VT Episodes: 0 Non-Sust Episodes: 0 Measurements Battery Voltage (V): 2.87 Charge Time (Sec): 11.4 RA Measurements Signal Amplitude (mV): 0.8 Impedance (Ohms): 475 RV Measurements Signal Amplitude (mV): 9.8 Impedance (Ohms): 323 Threshold Voltage: 0.5 @ PW(ms): 0.4 Shock Impedance (Ohms): 42 Tachy Settings VF Therapies VF Therapy Status On On On On On On Energy 35 35 35 35 35 35 Pathway B>AX B>AX B>AX B>AX AX>B B>AX ATP: During charging on FVT Therapies FVT Therapy Status Off Off Off Off Off Off VT Therapies FVT Therapy Status On On On On On On Comments: Magdiel Settings Magdiel Settings Pacemaker Mode AAIR+ Output/Sensing V/PW (ms) 2.5/0.4 2.0/0.4 Sensitivity RA RV LV Comments: Billing Codes ICD Device Billing: ICD Dev Prog Eval, Dual Assessment AND Plan Problems 1. AICD (automatic cardioverter/defibrillator) present Z95.810 2. Ischemic cardiomyopathy I25.5 EF 20% on 10/27/16 3. CHF (congestive heart failure) I50.9 11/10/17 2106 <Electronically signed by Claudia Bradley > Date Claudia Bradley 11/13/17 1134<Electronically signed by Brent Torres MD> Cosigner Signature: Date (if applicable) Brent Torres MD CC: PROTHROMBIN TIME W/INR Collected: 10/11/2017 Status: F Source: [place] 9:15 AM [facility] REPOSITORY TYPE CODE TESTS RESULT OUT OF RANGE REFERENCE UNITS LAB L300.4150 11.7-14.9 SECONDS High PROTIME 30.8 LAB L300.4200 Normal INR 2.9 Performed By: #### L300.3900 #### [facility] [address] [place], [address] PROTHROMBIN TIME W/INR Collected: 09/24/2017 Status: F Source: [place] 8:45 AM [facility] REPOSITORY TYPE CODE TESTS RESULT OUT OF RANGE REFERENCE UNITS LAB L300.4150 11.7-14.9 SECONDS High PROTIME 20.7 LAB L300.4200 Normal INR 1.8 Performed By: #### L300.3900 #### [facility] [address] [place], [address] PROTHROMBIN TIME W/INR Collected: 08/26/2017 Status: F Source: [place] 9:07 AM [facility] REPOSITORY Order Comment: INR FOR DR TORRES TYPE CODE TESTS RESULT OUT OF RANGE REFERENCE UNITS LAB L300.4150 11.7-14.9 SECONDS High PROTIME 24.3 LAB L300.4200 Normal INR 2.3 Performed By: #### L300.3900 #### [facility] [address] [place], [address] BASIC METABOLIC Collected: 08/26/2017 Status: F Source: [place] PROFILE (BMP) 9:06 AM [facility] REPOSITORY Order Comment: INR FOR DR TORRES Send Results To: Chari Downey Reason for Laboratory Test Renal failure TYPE CODE TESTS RESULT OUT OF RANGE REFERENCE UNITS LAB L501.0100 74-106 mg/dL High GLU 112 Result Comment: Fasting Glucose result from 100 to 125 mg/dL suggests IMPAIRED HOMEOSTASIS per A.D.A. criteria. Please note revised GLUCOSE reference range effective 2017. LAB L501.1000 7-18 mg/dL High BUN 71 LAB L501.1100 0.70-1.30 mg/dL High CREAT,SERUM 1.76 Result Comment: The validity of the calculated GFR AND GFRAA in patients over 70 years has not been determined. Clinical correlation is essential. LAB L501.1110 >60 mL/min Low EST GFR 41 Result Comment: Non- GFR Calc LAB L501.1115 >60 mL/min Low EST GFR - AA 50 Result Comment: GFR Calc LAB L501.1300 10-20 RATIO High BUN/CRE 40.3 LAB L501.2200 8.5-10.1 mg/dL CA Normal 9.1 LAB L501.5300 136-145 mmol/L Low NA 135 LAB L501.5600 3.5-5.1 mmol/L K Normal 3.7 LAB L501.5900 98-107 mmol/L Low CL 89 LAB L501.6100 21.0-32.0 mmol/L High CO2 40.0 LAB L501.6200 5-15 Normal GAP 6 Performed By: #### L500.2500 #### [facility] [address] [place], [address] 12 LEAD ELECTROCARDIOGRAM Observed: 08/19/2017 Status: F Source: [place] 11:56 AM [facility] REPOSITORY [facility] Cardiovascular Services [address] [place] [address] 12 Lead EKG 08/13/171926 MR#: [id number] Acct: [id number] Name: MOE CAMEJO Rep #: [id number] : 1950 66 From: Brent Torres MD Attending Dr: Radu Rae MD Status: DIS IN Ordering Dr: Keagan Augustin MD Date: 08/13/17 Location: U Sex: M C Admitted: 08/13/17 Test Reason : CHF Blood Pressure : / mmHG Vent. Rate : 067 BPM Atrial Rate : 070 BPM P-R Int : 000 ms QRS Dur : 104 ms QT Int : 412 ms P-R-T Axes : 000 025 233 degrees QTc Int : 435 ms Normal sinus rhythm Low voltage QRS ST AND T wave abnormality, consider lateral ischemia Abnormal ECG When compared with ECG of 13-AUG-2017 10:40, MANUAL COMPARISON REQUIRED, DATA IS UNCONFIRMED Confirmed by BRENT TORRES ([id number]), proposal editor SHERON JOHNSON ([id number]) on 08/19/2017 11:56:18 AM Referred By: CHARLI Confirmed By:BRENT TORRES 08/19/17 1156 Date Brent Torres MD CC: Tyrone Dean MD Signed DISCHARGE SUMMARY Observed: 08/17/2017 Status: F Source: [place] 3:20 PM [facility] REPOSITORY [facility] Medical Records Department [address] [place] [address] Discharge Summary 08/17/17 1056 MR#: [id number] Acct: [id number] Name: MOE CAMEJO Rep #: [id number] : 1950 66 From: Radu Rae MD PCP: Tyrone Dean MD Status: DIS IN Y [id number] Dis[facility] Date and Diagnosis Date of Admission: 08/13/17 Date of Discharge: 08/17/17 - Primary Discharge Diagnosis Active and Suspected Problems Acute on chronic combined severe HF (Acute) Anasarca (Acute) Warfarin-induced coagulopathy (Acute) Acute kidney injury on CKD stage III (Acute) CHF (congestive heart failure) (Acute) Acute kidney injury superimposed on chronic kidney disease (Acute) - Secondary Discharge Diagnosis Chronic Problems History of stent insertion of renal artery (Chronic) Anemia (Chronic) Bilateral atelectasis (Chronic) Respiratory failure with hypoxia and hypercapnia (Chronic) Coronary artery disease (Chronic) Peripheral arterial occlusive disease (Chronic) Pleural effusion (Chronic) Acute cor pulmonale (Chronic) Ischemic cardiomyopathy (Chronic) EF 20% on 10/27/16 Chronic anticoagulation (Chronic) On warfarin Pulmonary hypertension (Chronic) Atrial fibrillation (Chronic) Hyperlipemia (Chronic) COPD (chronic obstructive pulmonary disease) (Chronic) mild. no chronic medications Hypertension (Chronic) Urine retention (Chronic) Hypothyroidism (Chronic) Former smoker, stopped smoking in distant past (Chronic) Quit in 1999 AICD (automatic cardioverter/defibrillator) present (Chronic) Pacemaker (Chronic) Diverticulosis (Chronic) Left renal artery stenosis (Chronic) Stent done in February History of PTCA (Chronic) Hospital Course and Treatment Operations: None Summary of Care Provided: Patient is a 66-year-old male with multiple comorbidities including CAD status post 3 previous stent placement ischemic cardiomyopathy with EF of 20% admitted with progressive shortness of breath spent of acute congestive heart failure made admitted to a monitored nursing floor for 1. Acute on chronic systolic congestive heart failure with an ejection fraction of 20%: Patient was managed with Bumex drip improve with therapy switched to Zaroxolyn on 08/16/17. Patient did improve with therapy 2. Ischemic cardiomyopathy status post AICD placement 3. CAD with previous stent placement 4. Chronic A. fib rate controlled on systemic anticoagulation with Coumadin 5. Chronic hypoxic respiratory failure secondary to patient's CHF as well as COPD on baseline home O2 6. Acute hypoxic respiratory failure superimposed on chronic respiratory failure secondary to #1 7. Severe pulmonary hypertension 8. Morbid obesity with BMI of 32.6 9. Hypertension-blood pressure controlled, home medications continued with dose adjustment as needed 10. Right-sided pleural effusion attributed to patient underlying congestive heart failure 11. Peripheral arterial occlusive disease status post aortic bypass graft, 12. Dyslipidemia-patient is on statin therapy, continued at home dose 13. BPH 14. Renal artery stenosis status post stenting in February 2008 15. Hypokalemia secondary to patient being on diuretics corrected per protocol 16. Chronic kidney disease stage III 17. DVT prophylaxis patient is on Coumadin Discharge Diet: 8 Cup Fluid Restriciton Home Medications: Medications to take at Discharge Amiodarone HCl 100 mg PO BID 10/31/13 Aspirin [Aspirin, Baby] 81 mg PO DAILY 10/31/13 Ezetimibe [Zetia] 10 mg PO QHS 10/31/13 Fenofibrate Nanocrystallized [Fenofibrate] 145 mg PO QHS 10/31/13 Rosuvastatin Calcium [Crestor] 40 mg PO QHS 10/31/13 Albuterol IH (ProAir) [Proair Hfa] 2 puff INHALATION Q4H PRN 06/25/16 Budesonide/Formoterol 160/4.5 [Symbicort 160/4.5 Mcg Inhaler (SP)] 2 puff INHALATION BID 06/25/16 Tiotropium Quartzsite [Spiriva 18 MCG] 2 puff INHALATION DAILY 06/25/16 Carvedilol 25 mg PO BID 08/13/17 Levothyroxine [Synthroid] 112 mcg PO DAILY 08/13/17 Tamsulosin HCl [Flomax] 0.4 mg PO DAILY@1730 08/13/17 Warfarin [Coumadin] 3 mg PO DAILY 08/13/17 Furosemide [Lasix] 60 mg PO BID@1000,1800 #180 tab 08/17/17 HydrALAZINE [Apresoline] 25 mg PO BID #60 tab 08/17/17 Isosorbide DN [Isordil] 5 mg PO TID #90 tab 08/17/17 Metolazone [Zaroxolyn] 2.5 mg PO TuTh@1000 #30 tab 08/17/17 Potassium Chloride [K-Dur] 20 meq PO DAILY #60 tab 08/17/17 Following Prescrptions Were Given to Patient: Furosemide [Lasix] 60 mg PO BID@1000,1800 #180 tab HydrALAZINE [Apresoline] 25 mg PO BID #60 tab Isosorbide DN [Isordil] 5 mg PO TID #90 tab Metolazone [Zaroxolyn] 2.5 mg PO TuTh@1000 #30 tab Potassium Chloride [K-Dur] 20 meq PO DAILY #60 tab Primary Care Physician: Brent Torres MD [STAFF PHYSICIAN] - Please follow up with your Primary Care Physician in: in 2- 4 weeks Please Follow Up With: Chari Downey MD When: in 2 weeks Patient Instructions: ED CHF General Disposition: Home Minutes spent on discharge:: 35 Patient Condition:: Stable Meaningful Use Info Meaningful Use Diagnoses (Choose all that apply): CHF - CHF JUANITA/ARB ordered at discharge?: Yes Reason JUANITA/ARB not ordered?: Worsening renal disease Documented LVEF (%): 20 Code Visit Inpatient E AND M: [id number] Disch Hosp 08/17/17 1520 <Electronically signed by Radu Rae MD> Date Radu Rae MD Cosigner Signature (if applicable): Date CC: Radu Rae MD; Tryone Dean MD Signed DISCHARGE INSTRUCTION Observed: 08/17/2017 Status: F Source: [place] 11:02 AM [facility] REPOSITORY [facility] Medical Records Department [address] [place] [address] Instructions for Home/Discharge Instructions 08/17/17 1100 MR#: [id number] Acct: [id number] Name: MOE CAMEJO Rep #: [id number] : 1950 66 From: Radu Rae MD PCP: Tyrone Dean MD Status: ADM IN - Discharge Diagnoses Current Active Problems: Current Active and Chronic Problems Acute on chronic combined severe HF (Acute) Anasarca (Acute) Warfarin-induced coagulopathy (Acute) Acute kidney injury on CKD stage III (Acute) CHF (congestive heart failure) (Acute) Acute kidney injury superimposed on chronic kidney disease (Acute) You will use the following diet at home:: Cardiac, Fluid restricted (specify 2000 mls, 1500 mls) - 2000 Your food should be the consistency of: Regular Instructions: ED CHF General Allergies/Adverse Reactions: Allergies No Known Allergies Allergy (Verified 03/11/17 15:00) Medications to take at Discharge Amiodarone HCl 100 mg PO BID 10/31/13 Aspirin [Aspirin, Baby] 81 mg PO DAILY 10/31/13 Ezetimibe [Zetia] 10 mg PO QHS 10/31/13 Fenofibrate Nanocrystallized [Fenofibrate] 145 mg PO QHS 10/31/13 Rosuvastatin Calcium [Crestor] 40 mg PO QHS 10/31/13 Albuterol IH (ProAir) [Proair Hfa] 2 puff INHALATION Q4H PRN 06/25/16 Budesonide/Formoterol 160/4.5 [Symbicort 160/4.5 Mcg Inhaler (SP)] 2 puff INHALATION BID 06/25/16 Tiotropium Quartzsite [Spiriva 18 MCG] 2 puff INHALATION DAILY 06/25/16 Carvedilol 25 mg PO BID 08/13/17 Levothyroxine [Synthroid] 112 mcg PO DAILY 08/13/17 Tamsulosin HCl [Flomax] 0.4 mg PO DAILY@1730 08/13/17 Warfarin [Coumadin] 3 mg PO DAILY 08/13/17 Furosemide [Lasix] 60 mg PO BID@1000,1800 #180 tab 08/17/17 HydrALAZINE [Apresoline] 25 mg PO BID #60 tab 08/17/17 Isosorbide DN [Isordil] 5 mg PO TID #90 tab 08/17/17 Metolazone [Zaroxolyn] 2.5 mg PO TuTh@1000 #30 tab 08/17/17 Potassium Chloride [K-Dur] 20 meq PO DAILY #60 tab 08/17/17 The following prescriptions were given: Furosemide [Lasix] 60 mg PO BID@1000,1800 #180 tab HydrALAZINE [Apresoline] 25 mg PO BID #60 tab Isosorbide DN [Isordil] 5 mg PO TID #90 tab Metolazone [Zaroxolyn] 2.5 mg PO TuTh@1000 #30 tab Potassium Chloride [K-Dur] 20 meq PO DAILY #60 tab Primary Care Physician: Brent Torres MD [STAFF PHYSICIAN] - Please follow up with your Primary Care Physician in: in 2- 4 weeks Please Follow Up With: Chari Downey MD When: in 2 weeks Proposed Discharge Date: 08/17/17 08/17/17 1102 <Electronically signed by Radu Rae MD> Date Radu Rae MD CC: Brent Torres MD; Vita Gilmroe MD; Tyrone Dean MD 12 LEAD ELECTROCARDIOGRAM Observed: 08/17/2017 Status: F Source: [place] 9:46 AM [facility] REPOSITORY [facility] Cardiovascular Services [address] [place] [address] 12 Lead EKG 08/13/17 1040 MR#: [id number] Acct: [id number] Name: MOE CAMEJO Rep #: [id number] : 1950 66 From: Brent Torres MD Attending Dr: Radu Rae MD Status: ADM IN Ordering Dr: Lalo Saul MD Date: 08/13/17 Location: [facility] Sex: M C Admitted: 08/13/17 Test Reason : SOB Blood Pressure : / mmHG Vent. Rate : 065 BPM Atrial Rate : 227 BPM P-R Int : 000 ms QRS Dur : 100 ms QT Int : 418 ms P-R-T Axes : 000 013 248 degrees QTc Int : 434 ms Suspect unspecified pacemaker failure Atrial fibrillation with occasional ventricular-paced complexes Low voltage QRS ST AND T wave abnormality, consider lateral ischemia Abnormal ECG Confirmed by BRENT TORRES ([id number]), proposal editor SHERON JOHNSON ([id number]) on 08/17/2017 9:46:00 AM Referred By: LI Confirmed By:BRENT TORRES 08/17/17 0946 Date Brent Torres MD CC: Tyrone Dean MD Signed PROTHROMBIN TIME W/INR Collected: 08/17/2017 Status: F Source: [place] 6:18 AM [facility] REPOSITORY TYPE CODE TESTS RESULT OUT OF RANGE REFERENCE UNITS LAB L300.4150 11.7-14.9 SECONDS High PROTIME 19.3 LAB L300.4200 Normal INR 1.7 Performed By: #### L300.3900 #### [facility] [address] [place], [address] CBC-COMPLETE BLOOD CNT Collected: 08/17/2017 Status: F Source: [place] NO DIFF 6:18 AM [facility] REPOSITORY TYPE CODE TESTS RESULT OUT OF RANGE REFERENCE UNITS LAB L100.1000 4.4-11.0 K/mm3 Normal WBC 5.2 LAB L100.1200 4.6-6.2 M/mm3 Low RBC 4.01 LAB L100.1300 13.0-16.5 g/dl Low HGB 8.7 LAB L100.1400 40-54 % Low HCT 32.4 LAB L100.1500 80-94 fL Normal MCV 80.8 LAB L100.1600 27.0-32.0 pg Low MCH 21.7 LAB L100.1700 32-36 g/gl Low MCHC 26.9 LAB L100.1810 11.6-14.6 % High RDW CV 18.8 LAB L100.1820 35.1-43.9 fl High RDW SD 53.8 LAB L100.1900 150-450 K/mm3 Normal PLT 163 LAB L100.2000 6.2-12.0 fl Normal MPV 11.0 Performed By: #### L100.0500 #### [facility] [address] [place], [place], [id number] BASIC METABOLIC Collected: 08/17/2017 Status: F Source: [place] PROFILE (BMP) 6:18 AM [facility] REPOSITORY TYPE CODE TESTS RESULT OUT OF RANGE REFERENCE UNITS LAB L501.0100 70-110 mg/dL Normal GLU 85 LAB L501.1000 7-18 mg/dL High BUN 31 LAB L501.1100 0.70-1.30 mg/dL High 1.68 CREAT,SERUM Result Comment: The validity of the calculated GFR AND GFRAA in patients over 70 years has not been determined. Clinical correlation is essential. LAB L501.1110 >60 mL/min Low EST GFR 43 Result Comment: Non- GFR Calc LAB L501.1115 >60 mL/min Low EST GFR - AA 52 Result Comment: GFR Calc LAB L501.1255 ml/min Normal Estimated CRCL 39.35 LAB L501.1300 10-20 RATIO Normal BUN/CRE 18.5 LAB L501.2200 8.5-10 mg/dL Normal .1 CA 9.1 LAB L501.5300 136-14 mmol/L Normal 5 NA 139 LAB L501.5600 3.5-5. mmol/L Low 1 K 3.3 LAB L501.5900 98-107 mmol/L Low CL 92 LAB L501.6100 21.0-3 mmol/L High 2.0 CO2 43.0 LAB L501.6200 5-15 Low GAP 4 Performed By: #### L500.2500, L501.5200 #### [facility] [address] [place], [place], [id number] MAGNESIUM Collected: 08/17/2017 Status: F Source: [place] 6:18 AM [facility] REPOSITORY TYPE CODE TESTS RESULT OUT OF RANGE REFERENCE UNITS LAB L501.5200 1.6-2.6 mg/dL Normal MG 2.2 Result Comment: Please note revised Magnesium reference range effective 2017. Performed By: #### L500.2500, L501.5200 #### [facility] [address] [place], [address] CONSULTATION Observed: 08/16/2017 Status: F Source: [place] 11:12 AM [facility] REPOSITORY [facility] Medical Records Department [address] [place] [address] Consultation 08/16/17 1103 MR#: [id number] Acct: [id number] Name: MOE CAMEJO Rep #: [id number] : 1950 66 From: Chari Downey MD PCP: Tyrone Dean MD Status: ADM IN Y Location: [place] [address] Problem List (1) Acute kidney injury superimposed on chronic kidney disease Status: Acute Consultation - Renal PCP/ Referring MD: Requesting physician: [] Primary care physician: Tyrone Dean - History of Present Illness History of Present Illness: The patient is a 66 year old M past medical history of severe systolic heart failure section fraction 20%, status post AICD placement, coronary artery disease, ischemic cardiomyopathy, chronic kidney disease stage III with a creatinine fluctuated between 1.2-2 . Patient presented with progressive shortness of breath and leg edema for 2 weeks . Patient was admitted for CHF decompensation . Patient also was found to have a Chiari with a creatinine increased to 1.9 from the last creatinine 1.2 . Renal team was consulted for managing acute kidney injury . Patient was kept on IV diuretics continuous infusion . Now he is on Bumex 0.5 mg/min with excellent urine output . Patient said his leg edema is much better . He remains on 4 L/min nasal cannula . He said his breathing is better. No NSAID use. No IV contrast exposure. No urinary obstructive symptoms. No skin rash. No hematuria. No UTI-like symptoms Review of systems : 12 systems review is negative except some shortness of breath [] - Allergies Allergies: Allergies No Known Allergies Allergy (Verified 03/11/17 15:00) - Current Medications Current Medications: Current Medications Acetaminophen (Tylenol) 650 mg PO Q6H PRN PRN PRN Reason: Mild Pain (scale 0-3)/T>100.7 Al Hydroxide/Mg Hydroxide (Mylanta Ii) 30 ml PO Q6H PRN PRN PRN Reason: Gastric Burning Albuterol/Ipratropium (Duoneb) 3 ml INHALATION Q4H PRN PRN Reason: Shortness of breath Albuterol/Ipratropium (Duoneb) 3 ml INHALATION Q6HWA.RT [facility] Last Admin: 08/16/17 07:14 Dose: 3 ml Amiodarone HCl (Cordarone) 200 mg PO DAILY [facility] Last Admin: 08/16/17 08:38 Dose: 200 mg Aspirin (Ecotrin) 81 mg PO DAILY@0800 [facility] Last Admin: 08/16/17 08:38 Dose: 81 mg Atorvastatin Calcium (Lipitor) 80 mg PO QHS [facility] Last Admin: 08/15/17 22:10 Dose: 80 mg Bisacodyl (Dulcolax) 10 mg RECTAL DAILY PRN PRN PRN Reason: Constipation Budesonide (Pulmicort Aerosol) 0.5 mg INHALATION Q12H.RT [facility] Last Admin: 08/16/17 07:14 Dose: 0.5 mg Carvedilol (Coreg) 25 mg PO BID [facility] Last Admin: 08/16/17 08:39 Dose: 25 mg Docusate Sodium (Colace) 200 mg PO BID PRN PRN PRN Reason: Constipation Ezetimibe (Zetia) 10 mg PO DAILY [facility] Last Admin: 08/16/17 08:39 Dose: 10 mg Fenofibrate (Tricor) 145 mg PO QHS [facility] Last Admin: 08/15/17 22:10 Dose: 145 mg Hydralazine HCl (Apresoline) 25 mg PO BID [facility] Last Admin: 08/16/17 08:38 Dose: 25 mg Isosorbide Dinitrate (Isordil) 5 mg PO TID [facility] Last Admin: 08/16/17 08:36 Dose: Not Given Levothyroxine Sodium (Synthroid) 112 mcg PO DAILY@0600 [facility] Last Admin: 08/16/17 05:16 Dose: 112 mcg Metolazone (Zaroxolyn) 2.5 mg PO UD [facility] Morphine Sulfate (Morphine) 1 - 2 mg IV Q4H PRN PRN PRN Reason: SEVERE PAIN (6-10/10) Ondansetron HCl (Zofran) 4 mg IV Q6H PRN PRN PRN Reason: Nausea Oxycodone HCl (Oxyir) 5 mg PO Q4H PRN PRN PRN Reason: Moderate Pain (pain scale 4-5) Potassium Chloride (K-Dur) 20 meq PO BIDCM [facility] Sodium Chloride () 5 - 30 ml IV UD PRN PRN Reason: SALINE FLUSH Tamsulosin HCl (Flomax) 0.4 mg PO DAILY@1730 [facility] Last Admin: 08/15/17 17:00 Dose: 0.4 mg Warfarin Sodium (Coumadin (Pbkc)) 3 mg PO DAILY@1700 [facility] Last Admin: 08/15/17 17:00 Dose: 3 mg Zolpidem Tartrate (Ambien (Generic)) 5 mg PO QHS PRN PRN PRN Reason: INSOMNIA - Past Medical History Past Medical History (Chronic Problems): Chronic Problems History of stent insertion of renal artery (Chronic) Anemia (Chronic) Bilateral atelectasis (Chronic) Respiratory failure with hypoxia and hypercapnia (Chronic) Coronary artery disease (Chronic) Peripheral arterial occlusive disease (Chronic) Pleural effusion (Chronic) Acute cor pulmonale (Chronic) Ischemic cardiomyopathy (Chronic) EF 20% on 10/27/16 Chronic anticoagulation (Chronic) On warfarin Pulmonary hypertension (Chronic) Atrial fibrillation (Chronic) Hyperlipemia (Chronic) COPD (chronic obstructive pulmonary disease) (Chronic) mild. no chronic medications Hypertension (Chronic) Urine retention (Chronic) Hypothyroidism (Chronic) Former smoker, stopped smoking in distant past (Chronic) Quit in 1999 AICD (automatic cardioverter/defibrillator) present (Chronic) Pacemaker (Chronic) Diverticulosis (Chronic) Left renal artery stenosis (Chronic) Stent done in February History of PTCA (Chronic) - Past Surgical History Surgical History: angioplasty - With stent, 3 times, cataract, pacemaker implantation - AICD, - - Aortobifemoral grafting, left renal artery stent - Social History Smoking Status: Former smoker - Family History Maternal History Items: Heart Disease Paternal History Items: Heart Disease, Pulmonary Disease - Black lung Patient Problems: Active and Suspected Problems Acute on chronic combined severe HF (Acute) Anasarca (Acute) Warfarin-induced coagulopathy (Acute) Acute kidney injury on CKD stage III (Acute) CHF (congestive heart failure) (Acute) Acute kidney injury superimposed on chronic kidney disease (Acute) - Physical Exam General: Alert, Oriented x3 HEENT: Atraumatic Oral: Moist Mucosa Neck: Supple, No JVD Lungs: - - Equal air entry. Bilateral crackles over both lungs bases Cardiovascular: Regular rate, Regular Rhythm, Normal S1, Normal S2 Abdomen: Bowel Sounds Present, Soft, Non Tender Extremities: No clubbing, No cyanosis, - - Trace edema of lower extent Skin: No rashes Lymphatic: No Cervical, Supraclavicular, or Inguinal Adenopathy Neurological: Cranial nerves II-XII grossly intact, Neuro grossly intact Psych/Mental Status: Normal Affect Vital Signs Temp Pulse Resp BP Pulse Ox 98.6 F 72 18 101/58 L 95 08/16/17 08:32 08/16/17 08:38 08/16/17 08:32 08/16/17 08:32 08/16/17 08:32 Oxygen Flow Rate 4 Oxygen Delivery Method Nasal Cannula Weight: 94.4 kg Body Mass Index (BMI) 35.0 Intake and Output for Last 24 Hours Laboratory Tests Past 24 Hrs PT 21.0 H INR 1.9 Sodium 139 Potassium 3.1 L Chloride 89 L Carbon Dioxide 45.0 H Anion Gap 5 Assessment/Plan Active and Suspected Problems Acute on chronic combined severe HF (Acute) Anasarca (Acute) Warfarin-induced coagulopathy (Acute) Acute kidney injury on CKD stage III (Acute) CHF (congestive heart failure) (Acute) Acute kidney injury superimposed on chronic kidney disease (Acute) 1-acute kidney injury and chronic kidney disease. Baseline creatinine fluctuated between 1.2-1.9 reflecting the change in the hemodynamic status from poor ejection fraction and diuretics use. ATN now is most probably related to cardiorenal syndrome. Creatinine improved with diuretics. Now creatinine 1.6. Creatinine peaked at 1.9 mg/dL when the patient initially presented to the hospital. I agree with the diuretics continuation. I will decrease the dose of Bumex to 2 mg p.o. 3 times daily along with metolazone. I will give the patient 1 dose of acetazolamide for metabolic alkalosis I will continue to monitor kidney function and electrolytes with diuretics. Avoid NSAIDs for now. Avoid JUANITA inhibitor/ARB/ 2- Hypokalemia. Most probably from diuretics. I will give potassium chloride 40 mEq IV 1 dose today. I will check magnesium level tomorrow 3-metabolic alkalosis. Most probably from volume contraction due to high volume diuresis. I will give 1 dose of acetazolamide 4-systolic heart failure decompensation. Improving with diuretics. Cardiology is following Thank you for the consult. We will continue to follow Chari Downey [phone] 08/16/17 1112 <Electronically signed by Chari Downey MD> Date Chari Downey MD Cosigner Signature (if applicable): Date CC: Brent Torres MD; Vita Gilmore MD; Tyrone Dean MD Signed BASIC METABOLIC Collected: 08/16/2017 Status: F Source: [place] PROFILE (BMP) 5:20 AM [facility] REPOSITORY TYPE CODE TESTS RESULT OUT OF RANGE REFERENCE UNITS LAB L501.0100 70-110 mg/dL Normal GLU 86 LAB L501.1000 7-18 mg/dL High BUN 29 LAB L501.1100 0.70-1.30 mg/dL High 1.59 CREAT,SERUM Result Comment: The validity of the calculated GFR AND GFRAA in patients over 70 years has not been determined. Clinical correlation is essential. LAB L501.1110 >60 mL/min Low EST GFR 46 Result Comment: Non- GFR Calc LAB L501.1115 >60 mL/min Low EST GFR - AA 56 Result Comment: GFR Calc LAB L501.1255 ml/min Normal Estimated CRCL 41.57 LAB L501.1300 10-20 RATIO Normal BUN/CRE 18.2 LAB L501.2200 8.5-10 mg/dL Normal .1 CA 8.8 LAB L501.5300 136-14 mmol/L Normal 5 NA 139 LAB L501.5600 3.5-5. mmol/L Low 1 K 3.1 LAB L501.5900 98-107 mmol/L Low CL 89 LAB L501.6100 21.0-3 mmol/L High 2.0 CO2 45.0 LAB L501.6200 5-15 Normal GAP 5 Performed By: #### L500.2500 #### [facility] [address] [place], [address] PROTHROMBIN TIME W/INR Collected: 08/16/2017 Status: F Source: [place] 5:20 AM [facility] REPOSITORY TYPE CODE TESTS RESULT OUT OF RANGE REFERENCE UNITS LAB L300.4150 11.7-14.9 SECONDS High PROTIME 21.0 LAB L300.4200 Normal INR 1.9 Performed By: #### L300.3900 #### [facility] [address] [place], [address] CHEST PA AND LATERAL Observed: 08/16/2017 Status: F Source: [place] 12:01 AM [facility] REPOSITORY [facility] Imaging Services [address] [place] [address] Chest PA and Lateral MR#: [id number] Acct: [id number] Name: MOE CAMEJO Rep #: [id number] : 1950 66 From: Tra Myrick MD PCP: Tyrone Dean MD Status: ADM IN Study: Chest PA and Lateral Date of Exam: 08/16/17 Exam# [id number] Ordering Dr: Brent Torres MD STUDY: X-RAY CHEST REASON FOR EXAM: Male, 66 years old. CHF. TECHNIQUE: PA and lateral views of the chest. COMPARISON: Comparison is made with prior examination dated August 14, 2017. FINDINGS: EKG electrodes are seen. Small right pleural effusion with underlying infiltration and/or atelectasis. This is unchanged. Persistent blunting of the left costophrenic angle with increased markings at the left lung base. Mild degree of vascular congestion. This is unchanged as well. A left-sided dual chamber pacemaker is seen. Normal mediastinum and lee. Normal visualized pulmonary arteries. There is atherosclerotic calcification of the aortic arch with tortuosity. There are diffuse degenerative changes of the visualized thoracic spine. Normal visualized ribs, clavicles, and shoulders. There is no demonstrated abnormality of the visualized soft tissue structures of the upper abdomen. RAD/Chest PA and Lateral IMPRESSION: Stable pleural parenchymal changes at the lung bases worse on the right side. Electronically Signed: Tra Myrick MD at 9:35 EST Tel [phone], Service support , CC: Brent Torres MD; Tyrone Dean MD Drop [employer]ge Operator: Signed CBC W/DIFF, AUTOMATED Collected: 08/15/2017 Status: F Source: [place] 5:16 AM [facility] REPOSITORY TYPE CODE TESTS RESULT OUT OF RANGE REFERENCE UNITS LAB L100.1000 4.4-11.0 K/mm3 Normal WBC 5.0 LAB L100.1200 4.6-6.2 M/mm3 Low RBC 3.81 LAB L100.1300 13.0-16.5 g/dl Low HGB 8.3 LAB L100.1400 40-54 % Low HCT 30.6 LAB L100.1500 80-94 fL Normal MCV 80.3 LAB L100.1600 27.0-32.0 pg Low MCH 21.8 LAB L100.1700 32-36 g/gl Low MCHC 27.1 LAB L100.1810 11.6-14.6 % High RDW CV 19.0 LAB L100.1820 35.1-43.9 fl High RDW SD 53.5 LAB L100.1900 150-450 K/mm3 Normal PLT 163 LAB L100.2000 6.2-12.0 fl Normal MPV 11.1 LAB L100.2100 47-70 % High NEUT% 75.0 LAB L100.2200 19-41 % Low LY% 13.1 LAB L100.2300 0-10 % High MONO% 10.3 LAB L100.2400 0-5 % Normal EO% 1.0 LAB L100.2500 0-1 % Normal BASO% 0.2 LAB L100.2550 0.0-0.9 % Normal IM GRAN % 0.400 Result Comment: IG% - Immature Granulocytes (promyelocytes, myelocytes and metamyelocytes) > 1% indicates that a LEFT SHIFT is Present. LAB L100.2620 2.0-7.7 X10 3/uL Normal Absolute Neut 3.7 LAB L100.2720 0.83-4.51 X10 3/ul Low Absolute Lymph 0.65 Performed By: #### L100.0100 #### [facility] Laboratory [address] [place], [address] PROTHROMBIN TIME W/INR Collected: 08/15/2017 Status: F Source: [place] 5:16 AM [facility] REPOSITORY TYPE CODE TESTS RESULT OUT OF RANGE REFERENCE UNITS LAB L300.4150 11.7-14.9 SECONDS High PROTIME 25.1 LAB L300.4200 Normal INR 2.4 Performed By: #### L300.3900 #### [facility] [address] [place], [address] BASIC METABOLIC Collected: 08/15/2017 Status: F Source: [place] PROFILE (BMP) 5:16 AM [facility] REPOSITORY Order Comment: ADD ON TYPE CODE TESTS RESULT OUT OF RANGE REFERENCE UNITS LAB L501.0100 70-110 mg/dL Normal GLU 84 LAB L501.1000 7-18 mg/dL High BUN 31 LAB L501.1100 0.70-1.30 mg/dL High 1.61 CREAT,SERUM Result Comment: The validity of the calculated GFR AND GFRAA in patients over 70 years has not been determined. Clinical correlation is essential. LAB L501.1110 >60 mL/min Low EST GFR 46 Result Comment: Non- GFR Calc LAB L501.1115 >60 mL/min Low EST GFR - AA 55 Result Comment: GFR Calc LAB L501.1255 ml/min Normal Estimated CRCL 41.06 LAB L501.1300 10-20 RATIO Normal BUN/CRE 19.3 LAB L501.2200 8.5-10 mg/dL Normal .1 CA 8.8 LAB L501.5300 136-14 mmol/L Normal 5 NA 143 LAB L501.5600 3.5-5. mmol/L Low 1 K 3.2 LAB L501.5900 98-107 mmol/L Low CL 96 LAB L501.6100 21.0-3 mmol/L High 2.0 CO2 41.0 LAB L501.6200 5-15 Normal GAP 6 Performed By: #### L500.2500 #### [facility] [address] [place], [address] CONSULTATION Observed: 08/14/2017 Status: F Source: [place] 2:47 PM [facility] REPOSITORY [facility] Medical Records Department [address] [place] [address] Consultation 08/14/17 0900 MR#: [id number] Acct: [id number] Name: MOE CAMEJO Rep #: [id number] : 1950 66 From: Brent Torres MD PCP: Tyrone Dean MD Status: ADM IN Y Location: [place] [address] Problem List (1) Acute on chronic combined severe HF Status: Acute (2) Anasarca Status: Acute (3) Warfarin-induced coagulopathy Status: Acute (4) Acute kidney injury on CKD stage III Status: Acute (5) CHF (congestive heart failure) Status: Acute (6) 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 no chronic medications (15) AICD (automatic cardioverter/defibrillator) present Status: Chronic (16) History of PTCA Status: Chronic Reason for Consult Date of Consultation: 08/14/17 Reason for Consultation: Acute on chronic CHF, coronary disease, ischemic cardiomyopathy, chronic renal insufficiency, atrial fibrillation, status post AICD. History of Present Illness: The patient is a 66 year old M, fairly well known to me, nondiabetic with ischemic cardiomyopathy, coronary disease status post AICD placement in the past, asymptomatic chronic persistent atrial fibrillation on Coumadin therapy. Patient originally presented to [facility] after angina type chest pain. Patient underwent left heart catheterization via the left groin which demonstrated a critical in-stent restenosis of his left circumflex. This was done via the left groin due to severe peripheral vascular disease on the right side status post aortofemoral bypass. Patient underwent successful cutting balloon angioplasty and drug-eluting stenting of his left circumflex with a 3.0X 20 Promus stent in December 2013, postdilated 3.5 mm. At that time he was in sinus rhythm so his Coumadin was discontinued and placed on aspirin and Plavix. In August 2014 patient was found on routine pacemaker evaluation to have a asymptomatic burst of atrial fibrillation and his Coumadin was restarted and his Plavix discontinued. Patient has been admitted several times for congestive heart failure symptoms, most recently in October 2016 however I was not reconsulted at that time. At that time his echocardiogram showed an EF of 20%, mild to moderate TR, an RVSP of 55 mmHg. In addition the patient has a history of right pleural effusions requiring thoracenteses in the past. Patient was doing well up into the last several days when he had progressively worsening lower extremity edema, shortness of breath, orthopnea, PND. He denies any chest pain symptoms. He sought medical attention at [facility] ER where he was found to have recurrence of his pleural effusion, normal sinus rhythm, and mild desaturation. He was admitted for medical therapy and placed on IV Lasix drip at 10 mg/h. Currently the patient is sitting in a chair, he has admitted to dietary indiscretion with salty soups, although he does state he takes his medications. He no longer smokes. He is unable to obtain a thoracentesis given his INR of 3.0. [] Past Medical History Allergies/Adverse Reactions: Allergies No Known Allergies Allergy (Verified 03/11/17 15:00) Home Medications: Ambulatory Orders Medication Instructions Recorded Amiodarone HCl 100 mg PO BID 10/31/13 Aspirin [Aspirin, Baby] 81 mg PO DAILY 10/31/13 Ezetimibe [Zetia] 10 mg PO QHS 10/31/13 Past Medical History (Chronic Problems): Chronic Problems History of stent insertion of renal artery (Chronic) Anemia (Chronic) Bilateral atelectasis (Chronic) Respiratory failure with hypoxia and hypercapnia (Chronic) Coronary artery disease (Chronic) Peripheral arterial occlusive disease (Chronic) Pleural effusion (Chronic) Acute cor pulmonale (Chronic) Ischemic cardiomyopathy (Chronic) EF 20% on 10/27/16 Chronic anticoagulation (Chronic) On warfarin Pulmonary hypertension (Chronic) Atrial fibrillation (Chronic) Hyperlipemia (Chronic) COPD (chronic obstructive pulmonary disease) (Chronic) mild. no chronic medications Hypertension (Chronic) Urine retention (Chronic) Hypothyroidism (Chronic) Former smoker, stopped smoking in distant past (Chronic) Quit in 1999 AICD (automatic cardioverter/defibrillator) present (Chronic) Pacemaker (Chronic) Diverticulosis (Chronic) Left renal artery stenosis (Chronic) Stent done in February History of PTCA (Chronic) Surgical History: angioplasty - With stent, 3 times, cataract, pacemaker implantation - AICD, - - Aortobifemoral grafting, left renal artery stent Psychiatric History: No pertinent psych hx - *Family History Maternal History Items: Heart Disease Paternal History Items: Heart Disease, Pulmonary Disease - Black lung Smoking Status: Former smoker Review of Systems - Review of Systems General: Denies: Fever, Night Sweats, Fatigue Cardiovascular: Reports: Shortness of Breath at Rest, Shortness of Breath with Exertion, Orthopnea, PND, Peripheral Edema. Denies: Chest Discomfort, Shortness of Breath, Palpitations, Lightheadedness, Dizziness, Near Syncope, Syncope Respiratory: Denies: Cough, Sputum Production, Hemoptysis Gastrointestinal: Denies: Hematemesis, Hematochezia, Melena Genitourinary: Denies: Dysuria, Hematuria Skin: Denies: Rash Subjectve: Patient sitting in chair, no acute distress. Objective: Vital Signs Temp Pulse Resp BP Pulse Ox 97.6 F L 70 18 102/48 L 91 08/14/17 08:00 08/14/17 08:00 08/14/17 08:00 08/14/17 08:00 08/14/17 08:00 Oxygen Flow Rate 4 Oxygen Delivery Method Nasal Cannula Weight: 223 lb 12.307 oz Body Mass Index (BMI) 35.0 Intake and Output for Last 24 Hours Intake Total 120 / 120 368.8 / 368.8 Output Total 1350 / 1350 Balance 120 / 120 -981.2 / -981.2 General: Awake, Alert, Oriented x 3 HEENT: PERRL, EOMI, Sclera Non Icteric Neck: Supple, Good ROM, No Lymph Node Enlargement Lungs: Diminished Right Base Cardiovascular: Regular Rhythm, Normal S1, Normal S2, No Murmurs, No Rubs, No Gallops Vascular: No Carotid Bruits, Normal Femoral Pulses, Normal Radial Pulses, Normal Dorsalis Pedal Pulse, Normal Posterior Tibial Pulses Abdomen: Bowel Sounds Present, Soft, Non Tender, No HSM, No Organomegaly Extremities: No Cyanosis, No Clubbing, No edema Neurological: No Focal Motor or Sensory Deficit 08/13/17 19:23: Magnesium 2.3 08/13/17 19:23: Troponin I < 0.02 08/13/17 23:03: Troponin I < 0.02 08/14/17 05:20: WBC 4.3 L, RBC 3.71 L, Hgb 8.1 L, Hct 30.3 L, MCV 81.7, MCH 21.8 L, MCHC 26.7 L, RDW 18.9 H, RDW Differential 56.2 H, Plt Count 161, MPV 10.6, Immature Gran % (Auto) 0.000, Neut % (Auto) 74.6 H, Lymph % (Auto) 13.6 L, [place] % (Auto) 10.9 H, Eos % (Auto) 0.9, Baso % (Auto) 0.0, Absolute Neuts (auto) 3.2, Total Counted Not Reportable 08/14/17 05:20: PT 29.8 H, INR 3.0 08/14/17 05:20: Magnesium 2.2, Triglycerides 97, Cholesterol 127, LDL Cholesterol 79, VLDL Cholesterol 19, HDL Cholesterol 29 L 08/14/17 05:20: Troponin I < 0.02 Rhythm: EKG: Normal sinus rhythm with lateral T-wave inversion. ECHO: Dated 10/27/16 showed an EF of 20%, with inferior lateral akinesis, RVSP of 55 mmHg, Stress Test: Cardiac Cath: PCI: CT Surgery: Holter monitor: EPS: PPM: CXR: Chest CT Scan: Assessment/Plan 1. Ischemic cardiomyopathy: The patient has evidence of biventricular failure and pulmonary hypertension as well as recurrence of his right pleural effusion. His chest x-ray does not appear to show a an excessive amount of right sided pleural effusion, and my hope would be is that we could diurese him to the point where that would improve without undergoing a repeat thoracentesis. I am in agreement with IV diuretic therapy with Lasix at 10 mg/h, but I would have a low threshold to increase this or switch to Bumex drip in order to conserve IV fluid infusion. In addition I recommend metolazone 2.5 mg today, followed by 2 times per week on Tuesdays and in order to facilitate optimal fluid balance. His creatinine clearance is not so bad that he requires dialysis at this time, however that may be ultimately his N game if we are unable to control his fluid status. In addition I recommend a 1500 cc fluid restriction, ABBIE hose while he is in house to facilitate venous return. I do not believe the patient requires repeat catheterization, stress test or echocardiogram at this time. 2. Atrial fibrillation: The patient is remaining in normal sinus rhythm with the assistance of Coreg, Accupril, and amiodarone. I recommend discontinuation of his Norvasc as this may be contributing to his leg edema. Should he have increased blood pressure, we can add Imdur 30 mg p.o. daily and titrate up from there. 3. Hyperlipidemia: Continue Crestor and Zetia therapy. Recommend repeat lipid profile. 4. Thank you very much for the opportunity to put dissipate in the cardiac care of your patient. Consultation time took place between 830 and 9 AM. Code Visit Inpatient E AND M: 30604 Init Hosp L2 08/14/17 1447 <Electronically signed by Brent Torres MD> Date Brent Torres MD Cosigner Signature (if applicable): Date CC: Brent Torres MD; Vita Gilmore MD; Tyrone Dean MD Signed PROTHROMBIN TIME W/INR Collected: 08/14/2017 Status: F Source: [place] 5:20 AM [facility] REPOSITORY TYPE CODE TESTS RESULT OUT OF RANGE REFERENCE UNITS LAB L300.4150 11.7-14.9 SECONDS High PROTIME 29.8 LAB L300.4200 Normal INR 3.0 Performed By: #### L300.3900 #### [facility] Laboratory [facility] [place], [address] CBC W/DIFF, AUTOMATED Collected: 08/14/2017 Status: F Source: [place] 5:20 AM [facility] REPOSITORY TYPE CODE TESTS RESULT OUT OF RANGE REFERENCE UNITS LAB L100.1000 4.4-11.0 K/mm3 Low WBC 4.3 LAB L100.1200 4.6-6.2 M/mm3 Low RBC 3.71 LAB L100.1300 13.0-16.5 g/dl Low HGB 8.1 LAB L100.1400 40-54 % Low HCT 30.3 LAB L100.1500 80-94 fL Normal MCV 81.7 LAB L100.1600 27.0-32.0 pg Low MCH 21.8 LAB L100.1700 32-36 g/gl Low MCHC 26.7 LAB L100.1810 11.6-14.6 % High RDW CV 18.9 LAB L100.1820 35.1-43.9 fl High RDW SD 56.2 LAB L100.1900 150-450 K/mm3 Normal PLT 161 LAB L100.2000 6.2-12.0 fl Normal MPV 10.6 LAB L100.2100 47-70 % High NEUT% 74.6 LAB L100.2200 19-41 % Low LY% 13.6 LAB L100.2300 0-10 % High MONO% 10.9 LAB L100.2400 0-5 % Normal EO% 0.9 LAB L100.2500 0-1 % Normal BASO% 0.0 LAB L100.2550 0.0-0.9 % Normal IM GRAN % 0.000 Result Comment: IG% - Immature Granulocytes (promyelocytes, myelocytes and metamyelocytes) > 1% indicates that a LEFT SHIFT is Present. LAB L100.2620 2.0-7.7 X10 3/uL Normal Absolute Neut 3.2 LAB L100.2720 0.83-4.51 X10 3/ul Low Absolute Lymph 0.59 LAB L100.4500 Normal SMEAR COMMENT SCANNED Performed By: #### L100.0100 #### [facility] [address], [address] TROPONIN-I Collected: 08/14/2017 Status: F Source: [place] 5:20 AM [facility] REPOSITORY Order Comment: 'TROP' Serial specimen #1, #2, #3, or #4: 4 TYPE CODE TESTS RESULT OUT OF RANGE REFERENCE UNITS LAB L501.4010 <0.06 ng/mL Normal < 0.02 TROPONIN-I Result Comment: TROPONIN-I EXPECTED VALUES <0.05 NEGATIVE 0.06 - 0.59 AT RISK OF NC > OR = 0.60 SUGGEST NC Performed By: #### L501.4010 #### [facility] [address] [place], [place], [address] LIPID PROFILE Collected: 08/14/2017 Status: F Source: [place] 5:20 AM [facility] REPOSITORY TYPE CODE TESTS RESULT OUT OF RANGE REFERENCE UNITS LAB L501.4900 200 mg/dL Normal CHOL 127 Result Comment: <200 mg/dL Desirable 200-240 mg/dL Borderline >240 mg/dL High Risk LAB L501.5000 mg/dL Normal TRIG 97 Result Comment: The drugs N-Acetylcysteine and Metamizole may falsely depress this assay. Serum Triglycerides Reference Interval Normal <150 mg/dL Borderline high 150 - 199 mg/dL High 200 - 499 mg/dL Very High > or = 500 mg/dL LAB L501.6400 mg/dL Low HDL 29 Result Comment: The drugs N-Acetylcysteine and Metamizole may falsely depress this assay. Reference Range HDL <40 mg/dL Low HDL Cholesterol HDL >or= 60 mg/dL High HDL Cholesterol LAB L501.6500 0-130 mg/dL Normal LDL 79 LAB L501.6600 5-40 mg/dL Normal VLDL 19 Performed By: #### L500.4100, L501.5200, L501.9520 #### [facility] [address] [place], [place], [address] MAGNESIUM Collected: 08/14/2017 Status: F Source: [place] 5:20 AM [facility] REPOSITORY TYPE CODE TESTS RESULT OUT OF RANGE REFERENCE UNITS LAB L501.5200 1.6-2.6 mg/dL Normal MG 2.2 Result Comment: Please note revised Magnesium reference range effective 2017. Performed By: #### L500.4100, L501.5200, L501.9520 #### [facility] [address] [place], [address] THYROID STIM HORMONE Collected: 08/14/2017 Status: F Source: [place] (TSH) 5:20 AM [facility] REPOSITORY TYPE CODE TESTS RESULT OUT OF RANGE REFERENCE UNITS LAB L501.9520 0.358-3.74 uIU/mL High TSH 4.09 Performed By: #### L500.4100, L501.5200, L501.9520 #### [facility] [address] [place], [address] CHEST PA AND LATERAL Observed: 08/14/2017 Status: F Source: [place] 12:00 AM [facility] REPOSITORY [facility] Imaging Services [address] [place] [address] Chest PA and Lateral MR#: [id number] Acct: [id number] Name: MOE CAMEJO Rep #: [id number] : 1950 M 66 From: Kar Heredia DO PCP: Tyrone Dean MD Status: ADM IN Study: Chest PA and Lateral Date of Exam: 08/14/17 Exam# [id number] Ordering Dr: Keagan Augustin MD STUDY: X-RAY CHEST REASON FOR EXAM: Male, 66 years old. CHF. TECHNIQUE: PA and lateral views of the chest. COMPARISON: 13 August 2017 FINDINGS: Left pacer place with leads overlying the right atrium and right ventricle. Chronic basilar interstitial markings and atelectatic changes are present mildly increased. There is overall stable appearance of the right layering pleural effusion. There is no demonstrated pleural abnormality. There is moderate cardiac enlargement. Normal mediastinum and lee. Normal visualized pulmonary arteries. There is atherosclerotic calcification of the aortic arch with tortuosity. Normal visualized thoracic spine. Normal visualized ribs, clavicles, and shoulders. There is no demonstrated abnormality of the visualized soft tissue structures of the upper abdomen. RAD/Chest PA and Lateral IMPRESSION: Mild increased basilar atelectasis with unchanged appearance of right lower lung effusion. Electronically Signed: Kar DO Yan at 7:22 EST , Service support , CC: Keagan Augustin MD; Tyrone Dean MD Drop [employer]ge Operator: Signed TROPONIN-I Collected: 08/13/2017 Status: F Source: [place] 11:03 PM [facility] REPOSITORY Order Comment: 'TROP' Serial specimen #1, #2, #3, or #4: 3 TYPE CODE TESTS RESULT OUT OF RANGE REFERENCE UNITS LAB L501.4010 <0.06 ng/mL Normal < 0.02 TROPONIN-I Result Comment: TROPONIN-I EXPECTED VALUES <0.05 NEGATIVE 0.06 - 0.59 AT RISK OF NC > OR = 0.60 SUGGEST NC Performed By: #### L501.4010 #### [facility] [address] [place], [address] MAGNESIUM Collected: 08/13/2017 Status: F Source: [place] 7:23 PM [facility] REPOSITORY TYPE CODE TESTS RESULT OUT OF RANGE REFERENCE UNITS LAB L501.5200 1.6-2.6 mg/dL Normal MG 2.3 Result Comment: Please note revised Magnesium reference range effective 2017. Performed By: #### L501.5200 #### [facility] [address] [place], [address] EMERGENCY DEPARTMENT Observed: 08/13/2017 Status: F Source: [place] SUMMARY 6:12 PM [facility] REPOSITORY [facility] Medical Records Department [address] [place] [address] Emergency Department Summary 08/13/17 1450 MR#: [id number] Acct: [id number] Name: MOE CAMEJO Rep #: [id number] : 1950 66 From: Lalo Saul MD PCP: Tyrone Dean MD Status: ADM IN - ER Visit Summary Date of Service: 08/13/17 Chief Complaint: Shortness of breath History of Present Illness: The patient is a 66 M presenting for evaluation secondary to shortness of breath. Patient has an underlying history of CHF with an ejection fraction of 20% a pacemaker. Patient states over the course last week he has been retaining fluid in his legs abdomen and feels that he is now retaining fluid in his lungs. Denies any chest pain or cough or fever associated with this. Patient states that he also has an underlying history of chronic kidney disease and it is difficult to titrate his Lasix but he currently is on 40 mg twice daily. Review of systems otherwise negative. Physical Examination: Initial blood pressure 93/50, patient is chronically on 4 L nasal cannula and is 92%. Well-nourished male no acute distress. Moist mucous membranes. Neck supple. Heart regular rate and rhythm 3 out of 6 systolic murmur noted at the apex. Rales noted bilaterally with bilateral wheezes but no respiratory distress. Abdomen is somewhat distended but nontender. 2+ peripheral edema bilaterally symmetric with bilateral 1+ radial pulses. Remainder physical otherwise unremarkable. Test Results: Chest x-ray demonstrates CHF with a right-sided pleural effusion. EKG shows A. fib with a rate in the 70s and chronic T-wave inversions laterally that are unchanged from prior. CBC shows chronic anemia 8.7, chemistry shows potassium of 5.3, BUN of 39 trending upwards from a earlier B UN of 37, creatinine of 1.9 mildly trended upward from 1.84. INR 3.1, troponin negative, BNP elevated. Emergency Department Course and Treatment: Patient presented due to concern for worsening CHF. Patient's workup is noted as above and shows new onset of a pleural effusion on the right but no evidence of cardiac strain. Initially the patient was normally oxygenating in the emergency department on his normal nasal cannula oxygen dosage. I had a discussion with Dr. Torres about this who recommended doubling the patient's Lasix dose and potentially scheduling him for an outpatient pleurocentesis. I discussed this with Dr. Saenz who initially planned to do the pleurocentesis, but to the patient's INR was too high for this procedure. Prior to discharge however, the patient became hypoxic with pulse ox is dropping into the 84% range on his baseline O2. This point I believe he requires admission. I discussed this with the hospitalist patient was given Lasix and increased supplemental oxygen and the patient will be admitted. Disposition: Admission Impression: 1. CHF exacerbation 2. Right-sided pleural effusion 3. Chronic kidney disease 4. Hypoxia This note was generated with GRID dictation software. It may contain incorrect words, spelling, and punctuation that were not noted in review of the chart prior to signing ED Disposition - Plan for ED Patient: Disposition: Home or Assisted Living Chief Complaint: Shortness of Breath Diagnosis: CHF (congestive heart failure) What to do if you have Problems For any increased pain, shortness of breath, bleeding, nausea or vomiting, chest pain, or any unexpected problems, contact your Primary Care Provider. Call [facility] ([phone]) or report to the closest Emergency Room. Call 911 if necessary. 08/13/171811 <Electronically signed by Lalo Saul MD> Date Lalo aSul MD Cosigner Signature (If Indicated): Date CC: Tyrone Dean MD HISTORY AND PHYSICAL Observed: 08/13/2017 Status: F Source: [place] EXAM 5:05 PM [facility] REPOSITORY [facility] Medical Records Department [address] [place] [address] History and Physical 08/13/17 1628 MR#: [id number] Acct: [id number] Name: MOE CAMEJO Rep #: [id number] : 1950 66 From: Keagan Augustin MD PCP: Tyrone Dean MD Status: ADM IN Location: [place] [address] Problem List (1) Acute on chronic combined severe HF Status: Acute (2) Anasarca Status: Acute (3) Warfarin-induced coagulopathy Status: Acute (4) Acute kidney injury on CKD stage III Status: Acute (5) half-way (current) use of anticoagulants Status: Acute (6) History of stent insertion of renal artery Status: Chronic (7) Anemia Status: Chronic (8) Bilateral atelectasis Status: Chronic (9) Acute on chronic respiratory failure with hypoxia and hypercapnia Status: Acute (10) Respiratory failure with hypoxia and hypercapnia Status: Chronic (11) Acute systolic congestive heart failure Status: Acute (12) Coronary artery disease Status: Chronic (13) Peripheral arterial occlusive disease Status: Chronic (14) Pleural effusion Status: Chronic (15) Acute cor pulmonale Status: Chronic (16) Ischemic cardiomyopathy Status: Chronic Comment: EF 20% on 10/27/16 (17) Chronic anticoagulation Status: Chronic Comment: On warfarin (18) Pulmonary hypertension Status: Chronic (19) Atrial fibrillation Status: Chronic (20) Hyperlipemia Status: Chronic (21) COPD (chronic obstructive pulmonary disease) Status: Chronic Comment: mild. no chronic medications (22) Hypertension Status: Chronic (23) Urine retention Status: Chronic (24) BPH (benign prostatic hypertrophy) Status: Suspected (25) Hypothyroidism Status: Chronic (26) Former smoker, stopped smoking in distant past Status: Chronic Comment: Quit in 1999 (27) AICD (automatic cardioverter/defibrillator) present Status: Chronic (28) Pacemaker Status: Chronic (29) Diverticulosis Status: Chronic (30) Left renal artery stenosis Status: Chronic Comment: Stent done in February (31) History of PTCA Status: Chronic History of Present Illness Date of Admission: 08/13/17 Chief Complaint: Progressive worsening of shortness of breath The patient is a 66 year old M with multiple comorbidities including coronary artery disease status post 3 stent, last stent was about 3 years ago, 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 Patient has generalized anasarca, bilateral lower extremity edema, ascites, pleural effusion, ongoing since February 2017. He was admitted last time in February 2017 with acute on chronic combined respiratory failure due to right more than left pleural effusion and atelectasis for which he had right thoracocentesis and about 800 mL fluid was removed by Dr. Myrick. Patient denies any chest pain/tightness and denies even chest pain on exertion. ER physician talked to Dr. person for thoracocentesis and he postponed it for Wednesday because of high INR. Also discussed with Dr. Torres advised for admission for heart failure. 2D echo in October 2016 shows EF 20% with akinetic apex and severely hypokinetic anterior apex and rest of the wall hypokinetic, LA severely enlarged, RA mildly enlarged, 1-2+ MR, mild papillary muscle dysfunction of mitral valve. Mild TR, RVSP of 55 mmHg. Aortic sclerosis no stenosis. Trivial pericardial effusion. Status post AICD Past Medical History Past Medical History (Chronic Problems): Chronic Problems History of stent insertion of renal artery (Chronic) Anemia (Chronic) Bilateral atelectasis (Chronic) Respiratory failure with hypoxia and hypercapnia (Chronic) Coronary artery disease (Chronic) Peripheral arterial occlusive disease (Chronic) Pleural effusion (Chronic) Acute cor pulmonale (Chronic) Ischemic cardiomyopathy (Chronic) EF 20% on 10/27/16 Chronic anticoagulation (Chronic) On warfarin Pulmonary hypertension (Chronic) Atrial fibrillation (Chronic) Hyperlipemia (Chronic) COPD (chronic obstructive pulmonary disease) (Chronic) mild. no chronic medications Hypertension (Chronic) Urine retention (Chronic) Hypothyroidism (Chronic) Former smoker, stopped smoking in distant past (Chronic) Quit in 1999 AICD (automatic cardioverter/defibrillator) present (Chronic) Pacemaker (Chronic) Diverticulosis (Chronic) Left renal artery stenosis (Chronic) Stent done in February History of PTCA (Chronic) Allergies No Known Allergies Allergy (Verified 03/11/17 15:00) Home Medications: Ambulatory Orders Medication Instructions Recorded Amiodarone HCl 100 mg PO BID 10/31/13 Aspirin [Aspirin, Baby] 81 mg PO DAILY 10/31/13 Ezetimibe [Zetia] 10 mg PO QHS 10/31/13 Surgical History: angioplasty - With stent, 3 times, cataract, pacemaker implantation - AICD, - - Aortobifemoral grafting, left renal artery stent Psychiatric History: No pertinent psych hx Smoking Status: Former smoker - *Family History Maternal History Items: Heart Disease Paternal History Items: Heart Disease, Pulmonary Disease - Black lung Review of Systems Constitutional: Reports: Malaise, Weakness, Fatigue. Denies: Chills, Fever, Weight Change HEENT: Denies: Head Aches, Sinus Congestion, Sinus Drainage Cardiovascular: Reports: Edema. Denies: Chest Pain, Palpitations Respiratory: Reports: Cough - Chronic cough of COPD, Shortness of Breath, Shortness of breath at rest, Shortness of breath upon exertion. Denies: Sputum production Gastrointestinal: Reports: - - Ascites. Denies: Abdominal Pain, Nausea, Vomiting Genitourinary: Denies: Dysuria Musculoskeletal: Reports: Joint Pain. Denies: Joint Tenderness Skin: Denies: Rash, Wounds Neurological: Denies: Numbness, Tingling, Focal weakness Psychiatric: Denies: Anxiety, Depression, Homicidal Ideations, Suicidal Ideations Hematologic/ Lymphatic: Denies: Easy Bruising, Easy Bleeding VTE Information - Inpt Only VTE Present on Admission: No VTE Mechan Device Prophylaxis: SCD's, Knee High ABBIE Hose VTE Pharm Prophylaxis ordered?: No Reason prophylaxis not ordered:: Medical Contraindication - Coagulopathy Patient Problems: Active and Suspected Problems Acute on chronic combined severe HF (Acute) Anasarca (Acute) Warfarin-induced coagulopathy (Acute) Acute kidney injury on CKD stage III (Acute) - Physical Exam General: Alert, Oriented x3, Cooperative HEENT: Atraumatic, PERRLA, EOMI, Normocephalic Oral: Dry Mucosa Neck: Supple, No JVD, Negative Carotid Bruits Lungs: Diminished - Diminished more on the right posterior half, Rales, Rhonchi, - - Bilateral pleural effusion, right more than left Cardiovascular: Normal S1, Normal S2, Irregular Rate, Murmur - Systolic murmur present over left lower external border Abdomen: Bowel Sounds Present, Soft, Non Tender, Hypoactive Bowel Sounds, Distended - Ascites present. shifting dullness present., Obese Extremities: Capillary Refill Less than 3 Seconds, Edema - Bilateral lower extremity edema, 3+, - - Midline surgical scar present of previous aortic graft bypass surgery Skin: No rashes, No breakdown Musculoskeletal: No Tenderness to Palpation of Joints or Extremities, Arthritic Changes Neurological: Cranial nerves II-XII grossly intact, Neuro grossly intact Psych/Mental Status: Normal Affect, Appropriate Vital Signs Temp Pulse Resp BP Pulse Ox 97.0 F L 65 17 117/55 L 88 08/13/17 10:13 08/13/17 15:34 08/13/17 15:34 08/13/17 15:34 08/13/17 15:34 Oxygen Flow Rate 3 Oxygen Delivery Method Nasal Cannula Weight: 233 lb 0.458 oz Body Mass Index (BMI) 36.5 Laboratory Tests Past 24 Hrs WBC 5.2 RBC 3.96 L Hgb 8.7 L WBC RBC Hgb Hct MCV MCH MCHC RDW RDW Differential Plt Count MPV Immature Gran % (Auto) Neut % (Auto) Lymph % (Auto) [place] % (Auto) Assessment/Plan Active and Suspected Problems Acute on chronic combined severe HF (Acute) Anasarca (Acute) Warfarin-induced coagulopathy (Acute) Acute kidney injury on CKD stage III (Acute) The patient is a 66 year old M with multiple comorbidities including coronary artery disease status post 3 stent, last stent was about 3 years ago, 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 Patient has generalized anasarca, bilateral lower extremity edema, ascites, pleural effusion, ongoing since February 2017. He was admitted last time in February 2017 with acute on chronic combined respiratory failure due to right more than left pleural effusion and atelectasis for which he had right thoracocentesis and about 800 mL fluid was removed by Dr. Myrick. Patient denies any chest pain/tightness and denies even chest pain on exertion. ER physician talked to Dr. Myrick for thoracocentesis and he postponed it for Wednesday because of high INR. Also discussed with Dr. Torres advised for admission for heart failure. 2D echo in October 2016 shows EF 20% with akinetic apex and severely hypokinetic anterior apex and rest of the wall hypokinetic, LA severely enlarged, RA mildly enlarged, 1-2+ MR, mild papillary muscle dysfunction of mitral valve. Mild TR, RVSP of 55 mmHg. Aortic sclerosis no stenosis. Trivial pericardial effusion. Status post AICD 1. 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 On IV furosemide drip, 10 mg/h. Patient blood pressure is on the lower side 93/50, 116/61. Agee catheter insertion. On aspirin, beta-maximiliano, low-dose Isordil 5 mg 3 times daily and nystatin. Cardiology consult to Dr. Torres. Cycle cardiac enzymes. Twelve-lead EKG ordered. Patient had recent echo as mentioned above. 2. Acute on chronic respiratory failure due to multiple comorbidities but predominantly acute on chronic heart failure associated with bilateral pleural effusion, right more than left and bilateral atelectasis: On oxygen through nasal cannula to keep pulse ox about 90%. If needed can put on BiPAP for respiratory support. Patient baseline is 3 L/min and was on 4 L in the ER. 3. Respiratory conditions: COPD, bilateral pleural effusion, right more than left and bilateral atelectasis: Dr. Scott postponed right-sided thoracocentesis for Wednesday because of INR, coagulopathy. 4. Acute kidney injury on CKD stage III: Creatinine is 1.97, BUN 39 with estimated creatinine clearance 33 mL/min. His baseline creatinine is around 1.25 with estimated creatinine clearance 50 mL/min. will consult nephrology to further manage Lasix drip, kidney function as I suspect that his creatinine would further increase on Lasix drip. Hypokalemia due to AKA on CKD stage III. 6. Coronary artery status post 3 stents: On medical management for now. Rest as mentioned above. 7. Chronic atrial fibrillation on Coumadin: Rate is controlled. INR is held because of coagulopathy, INR 3.1. 8. Anasarca: Patient has ascites, bilateral pleural effusion and bilateral lower extremity due to severe heart failure. 9.. Multiple comorbidities includes hypertension, severe pulmonary hypertension, peripheral arterial occlusive disease status post aortic bypass graft, dyslipidemia, BPH with urinary retention, possible bladder outlet obstruction left renal artery stenosis status post stenting February 2008, morbid obesity: This multiple comorbidities complicates the present care. PT and OT ordered. Home medication reconciliation done. More than 45 minutes spent in history, physical, examination review of previous medical record and discussion of plan of management with the patient CODE STATUS: Advanced directive including DNR CC, intubation and artificial life support discussed with the patient. Patient does not want intubation, life support or chest compressions so DNR CC arrest. He said he has living will with his daughter. I advised to bring the living will to the hospital so that can be scanned in our record. About 16 minutes time spent in discussion with advanced directive. Laboratory Results 08/13/17 10:45: WBC 5.2, RBC 3.96 L, Hgb 8.7 L, Hct 32.1 L, MCV 81.1, MCH 22.0 L, MCHC 27.1 L, RDW 18.8 H, RDW Differential 55.7 H, Plt Count 159, MPV 9.8, Immature Gran % (Auto) 0.000, Neut % (Auto) 79.5 H, Lymph % (Auto) 10.7 L, [place] % (Auto) 8.8, Eos % (Auto) 0.8, Baso % (Auto) 0.2, Absolute Neuts (auto) 4.2, Absolute Lymphs (auto) 0.56 L, Total Counted Not Reportable, Hypochromasia 1+ 08/13/17 10:45: Sodium 140, Potassium 5.3 H, Chloride 100, Carbon Dioxide 36.0 H, Anion Gap 4 L, BUN 39 H, Creatinine 1.97 H, Estim Creat Clear Calc 33.55, Est GFR (MDRD) Af Amer 44 L, Est GFR (MDRD) Non-Af 36 L, BUN/Creatinine Ratio 19.8, Glucose 107, Calcium 8.7, Troponin I < 0.02 08/13/17 10:45: B-Natriuretic Peptide 721.8 H 08/13/17 10:45: PT 31.1 H, INR 3.1 Clinical Impression(s) from Imaging Studies Chest X-Ray 08/13/17 10:30 IMPRESSION: Increasing small right pleural effusion with underlying infiltration and/or atelectasis. Stable pleural parenchymal changes at the left lung base. Electronically Signed: Tra Myrick MD at 11:25 EST Tel [phone], Service support , Code Visit Inpatient E AND M: 51078 Init Hosp L3 Procedures: 41840 Advncd Care Plan 30 Min 08/13/17 1705 <Electronically signed by Keagan Augustin MD> Date Keagan Augustin MD Cosigner Signature: Date (if applicable) CC: Keagan Augustin MD; Tyrone Dean MD Signed CBC W/DIFF, AUTOMATED Collected: 08/13/2017 Status: F Source: [place] 10:45 AM [facility] REPOSITORY TYPE CODE TESTS RESULT OUT OF RANGE REFERENCE UNITS LAB L100.1000 4.4-11.0 K/mm3 Normal WBC 5.2 LAB L100.1200 4.6-6.2 M/mm3 Low RBC 3.96 LAB L100.1300 13.0-16.5 g/dl Low HGB 8.7 LAB L100.1400 40-54 % Low HCT 32.1 LAB L100.1500 80-94 fL Normal MCV 81.1 LAB L100.1600 27.0-32.0 pg Low MCH 22.0 LAB L100.1700 32-36 g/gl Low MCHC 27.1 LAB L100.1810 11.6-14.6 % High RDW CV 18.8 LAB L100.1820 35.1-43.9 fl High RDW SD 55.7 LAB L100.1900 150-450 K/mm3 Normal PLT 159 LAB L100.2000 6.2-12.0 fl Normal MPV 9.8 LAB L100.2100 47-70 % High NEUT% 79.5 LAB L100.2200 19-41 % Low LY% 10.7 LAB L100.2300 0-10 % Normal MONO% 8.8 LAB L100.2400 0-5 % Normal EO% 0.8 LAB L100.2500 0-1 % Normal BASO% 0.2 LAB L100.2550 0.0-0.9 % Normal IM GRAN % 0.000 Result Comment: IG% - Immature Granulocytes (promyelocytes, myelocytes and metamyelocytes) > 1% indicates that a LEFT SHIFT is Present. LAB L100.2620 2.0-7.7 X10 3/uL Absolute Neut Normal 4.2 LAB L100.2720 0.83-4.51 X10 3/ul Low Absolute Lymph 0.56 LAB L100.7600 HYPOCHROMASIA Normal 1+ Performed By: #### L100.0100 #### [facility] [address] [place], [address] BASIC METABOLIC Collected: 08/13/2017 Status: F Source: [place] PROFILE (BMP) 10:45 AM [facility] REPOSITORY Order Comment: 'TROP' Serial specimen #1, #2, #3, or #4: 1 TYPE CODE TESTS RESULT OUT OF RANGE REFERENCE UNITS LAB L501.0100 70-110 mg/dL Normal GLU 107 LAB L501.1000 7-18 mg/dL High BUN 39 LAB L501.1100 0.70-1.30 mg/dL High 1.97 CREAT,SERUM Result Comment: The validity of the calculated GFR AND GFRAA in patients over 70 years has not been determined. Clinical correlation is essential. LAB L501.1110 >60 mL/min Low EST GFR 36 Result Comment: Non- GFR Calc LAB L501.1115 >60 mL/min Low EST GFR - AA 44 Result Comment: GFR Calc LAB L501.1255 ml/min Normal Estimated CRCL 33.55 LAB L501.1300 10-20 RATIO Normal BUN/CRE 19.8 LAB L501.2200 8.5-10 mg/dL Normal .1 CA 8.7 LAB L501.5300 136-14 mmol/L Normal 5 NA 140 LAB L501.5600 3.5-5. mmol/L High 1 K 5.3 LAB L501.5900 98-107 mmol/L Normal CL 100 LAB L501.6100 21.0-3 mmol/L High 2.0 CO2 36.0 LAB L501.6200 5-15 Low GAP 4 Performed By: #### L500.2500, L501.4010 #### [facility] [address] [place], [place], [address] TROPONIN-I Collected: 08/13/2017 Status: F Source: [place] 10:45 AM [facility] REPOSITORY Order Comment: 'TROP' Serial specimen #1, #2, #3, or #4: 1 TYPE CODE TESTS RESULT OUT OF RANGE REFERENCE UNITS LAB L501.4010 <0.06 ng/mL Normal < 0.02 TROPONIN-I Result Comment: TROPONIN-I EXPECTED VALUES <0.05 NEGATIVE 0.06 - 0.59 AT RISK OF NC > OR = 0.60 SUGGEST NC Performed By: #### L500.2500, L501.4010 #### [facility] [address] [place], [place], [address] BNP,B-TYPE NATRIURETIC Collected: 08/13/2017 Status: F Source: [place]IM[place]IS PEPT[place] 10:45 AM [facility] REPOSITORY TYPE CODE TESTS RESULT OUT OF RANGE REFERENCE UNITS LAB L503.6620 0-100 pg/mL High B-TYPE 721.8 ASHLEY PEP Performed By: #### L503.6620 #### [facility] [address] [place], [address] PROTHROMBIN TIME W/INR Collected: 08/13/2017 Status: F Source: [place] 10:45 AM [facility] REPOSITORY TYPE CODE TESTS RESULT OUT OF RANGE REFERENCE UNITS LAB L300.4150 11.7-14.9 SECONDS High PROTIME 31.1 LAB L300.4200 Normal INR 3.1 Performed By: #### L300.3900 #### [facility] [address] [place], [address] CHEST PA AND LATERAL Observed: 08/13/2017 Status: F Source: [place] 10:31 AM [facility] REPOSITORY [facility] Imaging Services [address] [facility] [address] [place] [address] Chest PA and Lateral MR#: [id number] Acct: [id number] Name: MOE CAMEJO Rep #: [id number] : 1950 M 66 From: Tra Myrick MD PCP: Tyrone Dean MD Status: PRE ER Study: Chest PA and Lateral Date of Exam: 08/13/17 Exam# [id number] Ordering Dr: Lalo Saul MD STUDY: X-RAY CHEST REASON FOR EXAM: Male, 66 years old. Chest pain. TECHNIQUE: PA and lateral views of the chest. COMPARISON: Comparison is made with prior study dated March 17, 2017. FINDINGS: Increasing right pleural effusion with basilar atelectasis. Stable pleural parenchymal changes at the left lung base. There is moderate cardiac enlargement. A left-sided ICD is seen. Normal mediastinum and lee. Normal visualized pulmonary arteries. There is atherosclerotic calcification of the aortic arch with tortuosity. There are diffuse degenerative changes of the visualized thoracic spine. Normal visualized ribs, clavicles, and shoulders. There is no demonstrated abnormality of the visualized soft tissue structures of the upper abdomen. RAD/Chest PA and Lateral IMPRESSION: Increasing small right pleural effusion with underlying infiltration and/or atelectasis. Stable pleural parenchymal changes at the left lung base. Electronically Signed: Tra Myrick MD at 11:25 EST Tel [phone], Service support , CC: Lalo Saul; Tyrone Dean MD [employer] [place] Operator: Signed ALLERGIES ALLERGIES DATE TYPE / CODE NAME / CODE REACTION SEVERITY SOURCE 08/11/2018 Drug No Known Unknown [place] [facility] Allergy/4160 Allergies/F00 Hospital 56529(SNOMED 7415550(RXNOR Repository CT) M) ENCOUNTERS ENCOUNTERS ADMIT/DISCHARGE ACCOUNT ADMITTING ENCOUNTER LOCATION SOURCE NUMBER CLASS 08/11/2018/ [id number] Ambulatory BMSBuilding:B [place] 9 0 [place] Repository 08/11/2018/ [id number] Ambulatory BMSBuilding:B [place] 9 6 [place] Repository 08/11/2018 [id number] Ambulatory [place] 2 [facility] ing:LAB Repository 07/15/2018/ [id number] Ambulatory [place] 8 2 [facility] ing:LAB Repository 05/26/2018/ [id number] Ambulatory [place] 8 6 [facility] ing:LAB Repository 05/12/2018/ [id number] Ambulatory BMSBuilding:B [place] 8 9 [facility] Repository 05/05/2018/ [id number] Ambulatory [place] 8 0 [facility] ing:LAB Repository 04/15/2018/ [id number] Ambulatory [place] 8 2 [facility] ing:LAB Repository 03/18/2018/ [id number] Ambulatory [place] 8 7 [facility] ing:LAB Repository 02/24/2018 [id number] Ambulatory [place] 8 [facility] ing:LAB Repository 02/04/2018/ [id number] Ambulatory [place] 8 2 [facility] ing:LAB Repository 01/31/2018/ [id number] Ambulatory BMSBuilding:B [place] 8 4 [facility] Repository 01/31/2018/ [id number] Ambulatory BMSBuilding:B [place] 8 5 [facility] Repository 01/11/2018/ [id number] Ambulatory [place] 8 2 [facility] ing:LAB Repository 12/01/2017/ [id number] Charli, Inpatient [place] 8 0 [place] [facility] ing:PCURoom: Repository [id number]: 1 12/01/2017 [id number] Charli, Ambulatory BMSBuilding:B [place] 5 [place].[facility] Repository 12/01/2017 [id number] Charli, Ambulatory BMSBuilding:B [place] 6 [place] MS.[facility] Repository 12/01/2017 [id number] Charli, Ambulatory BMSBuilding:B [place] 6 [place] [facility] Repository 12/01/2017 [id number] Charli, Ambulatory BMSBuilding:B [place] 8 [place].[facility] Repository 12/01/2017 [id number] Charli, Ambulatory BMSBuilding:B [place] 1 [place] Repository 12/01/[address] [id number] [facility], Ambulatory BMSBuilding:B [place] 4 [place].[facility] Repository 12/01/2017 [id number] [facility], Ambulatory BMSBuilding:B [place] 9 [place] Repository 11/26/2017 [id number] Ambulatory [place] 4 [facility] ing:LAB Repository 11/16/2017/ [id number] Ambulatory [place] 8 2 [facility] ing:LAB Repository 10/28/2017/ [id number] Ambulatory BMSBuilding:B [place] 8 7 [facility] Repository 10/11/2017/ [id number] Ambulatory [place] 8 9 [facility] ing:LAB Repository 08/26/2017/ [id number] Ambulatory [place] 8 5 [facility] ing:LAB Repository 08/17/2017 [id number] Ambulatory [place] 4 [facility] ing:US Repository 08/13/2017/ [id number] Charli, Inpatient [place] 8 8 [facility] Encounter [facility] ing:PCURoom: Repository [id number]: 1 PAYERS PAYERS ENCOUNTER GUARANTOR PAYER SUBSCRIBER SOURCE 08/11/2018 MOE Gutierrez Primary MOE Gutierrez [place] [id number] Insurance:MEDICARE MILESDOB: Critical access hospital PART A [id number] [address]Wfg: Number: Repository [id number] () Date:2018-01-31 08/11/2018 Secondary MOE Gutierrez [place] Insurance:UNITED [facility] WESTDOB: [address] [id number] Hospital Number: Repository [id number] Date:0081-98-14QN [id number] [place] [address]GA: 08/11/2018 Tertiary NOT GIVENUNK [place] Insurance:SELF PAY [facility] Number: Effective Repository Date:2018-05-12 08/11/2018 MOE L Primary MOE Gutierrez [place] [id number] Insurance:MEDICARE MILESDOB: Critical access hospital PART A [facility] [id number] [facility] [address]Tac: Number: Repository [id number] (HP) Date:2018-05-12 08/11/2018 Secondary MOE Gutierrez [place] Insurance:UNITED TH MILESDOB: [address] [id number] Hospital Number: Repository [id number] Date:7081-68-05MI [address], [place] [address]CF: 08/11/2018 Tertiary NOT GIVENUNK [place] Insurance:SELF PAY [facility] Number: Effective Repository Date:2018-05-12 08/11/2018 MOE Gutierrez Primary MOE Shanks [id number] Insurance:MEDICARE MILESDOB: [facility], PART A [facility] [id number] Valley Hospital [address]Opd: Number: Repository [id number] (HP) Date:2002-04-18 08/11/2018 Secondary MOE Gutierrez [place] Insurance:UNITED HLTH MILESDOB: [facility] CARE [address] [place] [address] [id number] Hospital Number: Repository [id number] Date:9195-45-21WS [facility] [address], [place] [address]BW: 08/11/2018 Tertiary NOT GIVENUNK [place] Insurance:SELF PAY [facility] Number: Effective Repository Date:2018-07-18 07/15/2018 MOE Gutierrez Primary MOE Shanks [id number] Insurance:MEDICARE MILESDOB: [facility], PART A [facility] [id number] Valley Hospital [address]Qqz: Number: Repository [id number] (HP) Date:2002-04-18 07/15/2018 Secondary MOE Gutierrez [place] Insurance:UNITED HLTH MILESDOB: [facility] CARE [address] [place] [address] [id number] Hospital Number: Repository [id number] Date:4033-81-50HJ [address] [address]RK: 07/15/2018 Tertiary NOT GIVENUNK [place] Insurance:SELF PAY [facility] Number: Effective Repository Date:2018-06-20 05/26/2018 MOE Gutierrez Primary MOE Shanks [id number] Insurance:MEDICARE MILESDOB: [facility], PART A [facility] [id number] Valley Hospital [address]Izx: Number: Repository [id number] (HP) Date:2002-04-18 05/26/2018 Secondary MOE Shanks Insurance:UNITED HLTH MILESDOB: Community CARE [id number] [id number] Hospital Number: Repository [id number] Date:1464-33-02AZ [facility] [place]VM[place], [place] [address]CZ: 05/26/2018 Tertiary NOT GIVENUNK Dimit[place] Insurance:SELF PAY [facility] Number: Effective Repository Date:2018-05-19 05/12/2018 MOE Gutierrez Primary MOE Shanks [id number] Insurance:MEDICARE MILESDOB: [facility], PART A [facility] [id number] [address]Vcs: Number: Repository [id number] () Date:2018-01-31 05/12/2018 Secondary MOE Gutierrez [place] Insurance:UNITED HLTH MILESDOB: Community CARE [id number] Hospital Number: Repository [id number] Date:5860-75-53CR [facility] [place]057[address]JMMJANL, [place] [address]KN: 05/12/2018 Tertiary NOT GIVENUNK [place] Insurance:SELF PAY [facility] Number: Effective Repository Date:2018-05-12 05/05/2018 MOE Gutierrez Primary MOE Shanks [id number] Insurance:MEDICARE MILESDOB: [facility], PART A [facility] [id number] Valley Hospital 11138Hhf: Number: Repository [id number] () Date:2002-04-18 05/05/2018 Secondary MOE Gutierrez [place] Insurance:UNITED HLTH MILESDOB: Community CARE [id number] Hospital Number: Repository [id number] Date:5706-90-20QU [facility] [place] 122832RXNLWCB, [place] [address]BV: 05/05/2018 Tertiary NOT GIVENUNK [place] Insurance:SELF PAY [facility] Number: Effective Repository Date:2018-04-20 04/15/2018 MOE L Primary MOE Shanks [id number] Insurance:MEDICARE MILESDOB: [facility], PART A [facility] [id number] Valley Hospital 94327Wdp: Number: Repository [id number] () Date:2002-04-18 04/15/2018 Secondary MOE Shanks Insurance:UNITED HLTH MILESDOB: [facility] CARE [address] [place] [address] [id number] Hospital Number: Repository [id number] Date:5647-44-84RF [address]ZO, [place] [address]QI: 04/15/2018 Tertiary NOT GIVENUNK [place] Insurance:SELF PAY [facility] Number: Effective Repository Date:2018-03-22 03/18/2018 MOE Gutierrez Primary MOE Shanks [id number] Insurance:MEDICARE MILESDOB: [facility], PART A [facility] [id number] Valley Hospital [address]Ozh: Number: Repository [id number] () Date:2002-04-18 03/18/2018 Secondary MOE Gutierrez [place] Insurance:UNITED HLTH MILESDOB: [facility] CARE [address] [place] [address] [id number] Hospital Number: Repository [id number] Date:7915-48-91JI [address]PSQIASL, [place] [address]QA: 03/18/2018 Tertiary NOT GIVENUNK [place] Insurance:SELF PAY [facility] Number: Effective Repository Date:2018-02-17 02/24/2018 MOE L Primary MOE Shanks [id number] Insurance:MEDICARE MILESDOB: [facility], PART A [facility] [id number] Valley Hospital 399[address]Kfy: Number: Repository [id number] () Date:2018-02-24 02/24/2018 Secondary MOE Gutierrez [place] Insurance:UNITED HLTH MILESDOB: [facility] CARE [address] [place], [place] [id number] Hospital Number: Repository [id number] Date:4485-83-43SS [address]FIFKS, [place] [address]XM: 02/24/2018 Tertiary NOT GIVENUNK [place] Insurance:SELF PAY [facility] Number: Effective Repository Date:2018-02-24 02/04/2018 MOE Gutierrez Primary MOE Shanks [id number] Insurance:MEDICARE MILESDOB: Community [place] PART A [facility] [id number] Number[place] Repository [id number]: 330 [id number] [phone] () Date:2002-04-18 02/04/2018 Secondary MOE Gutierrez [place] Insurance:UNITED HLTH MILESDOB: Community CARE [address] [place] [address] [id number] Hospital Number: Repository [id number] Date:2277-61-33TD [address]RLPBELB, [place] [address]ZW: 02/04/2018 Tertiary NOT GIVENUNK [place] Insurance:SELF PAY [facility] Number: Effective Repository Date:2018-01-14 01/31/2018 MOE Gutierrez Primary MOE Shanks [id number] Insurance:MEDICARE MILESDOB: [facility] PART A [facility] [id number] Number: Repository [id number]: 330 [id number] [phone] () Date:2017-12-29 01/31/2018 Secondary MOE Gutierrez [place] Insurance:UNITED HLTH MILESDOB: Community CARE [id number] Hospital Number: Repository [id number] Date:9061-58-87KW [address]HSNZDTB, [place] [address]US: 01/31/2018 Tertiary NOT GIVENUNK [place] Insurance:SELF PAY [facility] Number: Effective Repository Date:2018-01-31 01/31/2018 MOE L Primary MOE Gutierrez [place] [id number] Insurance:MEDICARE MILESDOB: Community [place] PART A [facility] [id number] Number: Repository [id number]: 330 [id number] [phone] () Date:2017-10-28 01/31/2018 Secondary MOE Gutierrez [place] Insurance:UNITED HLTH MILESDOB: Community CARE [id number] Hospital Number: Repository [id number] Date:1861-64-34XB [facility] [place] 413634IEFNRTL, [place] [address]LF: 01/31/2018 Tertiary NOT GIVENUNK [place] Insurance:SELF PAY [facility] Number: Effective Repository Date:2018-01-31 01/11/2018 MOE Gutierrez Primary MOE Shanks [id number] Insurance:MEDICARE MILESDOB: [facility], PART A [facility] [id number] Valley Hospital 88095Bvo: Number: Repository [id number] () Date:2002-04-18 01/11/2018 Secondary MOE Gutierrez [place] Insurance:UNITED HLTH MILESDOB: Community CARE [id number] Hospital Number: Repository [id number] Date:6503-44-10XU [address], [place] [address]VE: 01/11/2018 Tertiary NOT GIVENUNK [place] Insurance:SELF PAY [facility] Number: Effective Repository Date:2017-12-16 12/01/2017 MOE Gutierrez Primary MOE Shanks [id number] Insurance:MEDICARE MILESDOB: [facility], PART A [facility] [id number] Valley Hospital [address]2821Wkp: Number: Repository [id number] () Date:2017-12-01 12/01/2017 Secondary MOE Gutierrez [place] Insurance:UNITED HLTH MILESDOB: Community CARE [id number] Hospital Number: Repository [id number] Date:1205-29-78CR [address]IRZDNUM, [place] [address]SR: 12/01/2017 Tertiary NOT GIVENUNK [place] Insurance:SELF PAY [facility] Number: Effective Repository Date:2017-12-01 12/01/2017 MOE Gutierrez Primary MOE Sahnks [id number] Insurance:MEDICARE MILESDOB: [facility], PART A [facility] [id number] Valley Hospital 22960Puu: Number: Repository [id number] () Date:2017-12-01 12/01/2017 Secondary MOE Gutierrez [place] Insurance:UNITED HLTH MILESDOB: [facility] CARE [address] [place] [address] [id number] Hospital Number: Repository [id number] Date:6356-68-61LE [address], [place] [address]QT: 12/01/2017 Tertiary NOT GIVENUNK [place] Insurance:SELF PAY [facility] Number: Effective Repository Date:2017-12-01 12/01/2017 MOE Gutierrez Primary MOE Shanks [id number] Insurance:MEDICARE MILESDOB: [facility], PART A [facility] [id number] Valley Hospital 94353Ftl: Number: Repository [id number] () Date:2017-12-01 12/01/2017 Secondary MOE Gutierrez [place] Insurance:UNITED HLTH MILESDOB: [facility] CARE [address] [place] [address] [id number] Hospital Number: Repository [id number] Date:5376-05-47QA [address]IFOXIEB, [place] [address]BX: 12/01/2017 Tertiary NOT GIVENUNK [place] Insurance:SELF PAY [facility] Number: Effective Repository Date:2017-12-01 12/01/2017 MOE L Primary MOE Shanks [id number] Insurance:MEDICARE MILESDOB: [facility], PART A [facility] [id number] Valley Hospital 21568Sff: Number: Repository [id number] () Date:2017-12-01 12/01/2017 Secondary MOE Gutierrez [place] Insurance:UNITED HLTH MILESDOB: [place] [id number] Hospital Number: Repository [id number] Date:5851-25-00OH [address]OSSQFQC, [place] [address]SD: 12/01/2017 Tertiary NOT GIVENUNK [place] Insurance:SELF PAY [facility] Number: Effective Repository Date:2017-12-01 12/01/2017 MOE Gutierrez Primary MOE Shanks [id number] Insurance:MEDICARE MILESDOB: [facility], PART A [facility] [id number] Valley Hospital 701[address]Uqx: Number: Repository [id number] () Date:2017-12-01 12/01/2017 Secondary MOE Gutierrez [place] Insurance:UNITED HLTH MILESDOB: [facility] CARE [address] [place], [place] [address]39-06-15[facility] Number: Repository [id number] Date:1948-04-77IF [address]PQURSEU, [place] [address]KM: 12/01/2017 Tertiary NOT GIVENUNK [place] Insurance:SELF PAY [facility] Number: Effective Repository Date:2017-12-01 12/01/2017 MOE Gutierrez Primary MOE Shanks [id number] Insurance:MEDICARE MILESDOB: [facility], PART A [facility] [id number] Valley Hospital 37641Sux: Number: Repository [id number] () Date:2017-12-01 12/01/2017 Secondary MOE Shanks Insurance:UNITED HLTH MILESDOB: [facility] CARE [address] [place] [address] [id number] Hospital Number: Repository [id number] Date:0807-69-33FL [address], [place] [address]QF: 12/01/2017 Tertiary NOT GIVENUNK [place] Insurance:SELF PAY [facility] Number: Effective Repository Date:2017-12-01 12/01/2017 MOE L Primary MOE Shanks [id number] Insurance:MEDICARE MILESDOB: [facility], PART A [facility] [id number] Valley Hospital 34456Vah: Number: Repository [id number] (HP) Date:2017-12-01 12/01/2017 Secondary MOE Gutierrez [place] Insurance:UNITED HLTH MILESDOB: Community CARE [address] [place], [place] [address]39-06-15UNK Hospital Number: Repository [id number] Date:3486-56-44PX [address]ETEQVRR, [place] [address]ZA: 12/01/2017 Tertiary NOT GIVENUNK [place] Insurance:SELF PAY [facility] Number: Effective Repository Date:2017-12-01 12/01/2017 MOE L Primary MOE Shanks [id number] Insurance:MEDICARE MILESDOB: [facility], PART A [facility] [id number] [address]Tel: Number: Repository [id number] () Date:2017-12-01 12/01/2017 Secondary MOE Gutierrez [place] Insurance:UNITED HLTH MILESDOB: [facility] CARE [address] [place] [address] [id number] Hospital Number: Repository [id number] Date:4590-83-30EP [address]ZRDMXCK, [place] [address]IK: 12/01/2017 Tertiary NOT GIVENUNK [place] Insurance:SELF PAY [facility] Number: Effective Repository Date:2017-12-01 11/26/2017 MOE L Primary MOE Shanks [id number] Insurance:MEDICARE MILESDOB: [facility], PART A [facility] [id number] [place] [address]Tel: Number: Repository [id number] () Date:2017-11-26 11/26/2017 Secondary MOE Gutierrez [place] Insurance:UNITED HLTH MILESDOB: [facility] CARE [address] [place] [address] [id number] Hospital Number: Repository [id number] Date:0615-00-09AB [address]ITQCZQN, [place] [address]GD: 11/26/2017 Tertiary NOT GIVENUNK [place] Insurance:SELF PAY [facility] Number: Effective Repository Date:2017-11-26 11/16/2017 MOE Gutierrez Primary MOE Shanks [id number] Insurance:MEDICARE MILESDOB: [facility] PART A [facility] [id number] Number: Repository [id number]: 330 [id number] [phone] () Date:2002-04-18 11/16/2017 Secondary MOE Gutierrez [place] Insurance:UNITED HLTH MILESDOB: [facility] CARE [address] [place], [place] [address]39-06-15UNK Hospital Number: Repository [id number] Date:5127-46-98IA [address]HEPPGHM, [place] [address]ZQ: 11/16/2017 Tertiary NOT GIVENUNK [place] Insurance:SELF PAY [facility] Number: Effective Repository Date:2017-10-18 10/28/2017 MOE Gutierrez Primary MOE Shanks [id number] Insurance:MEDICARE MILESDOB: [place] [id number] Number: Repository [id number]: 330 [id number] [phone] () Date:2017-07-28 10/28/2017 Secondary MOE Gutierrez [place] Insurance:UNITED HLTH MILESDOB: [facility] CARE [address] [place], [place] [address]39-06-15UNK Hospital Number: Repository [id number] Date:4339-40-55BU [address]CLKDHNC, [place] [address]GX: 10/28/2017 Tertiary NOT GIVENUNK [place] Insurance:SELF PAY [facility] Number: Effective Repository Date:2017-10-28 10/11/2017 MOE Gutierrez Primary MOE Shanks [id number] Insurance:MEDICARE MILESDOB: [facility] [id number] Valley Hospital 314[address]Ubg: Number: Repository [id number] () Date:2002-04-18 10/11/2017 Secondary MOE Gutierrez [place] Insurance:UNITED HLTH MILESDOB: [facility] CARE [address] [place], [place] [id number] Hospital Number: Repository [id number] Date:3792-55-28CU [address]DBBHTIL, [place] [address]YQ: 10/11/2017 Tertiary NOT GIVENUNK [place] Insurance:SELF PAY [facility] Number: Effective Repository Date:2017-09-17 08/26/2017 MOE Gutierrez Primary MOE Shanks [id number] Insurance:MEDICARE MILESDOB: [facility] PART A [address]06-15[facility] [address]Ebb: Number: Repository [id number] () Date:2002-04-18 08/26/2017 Secondary MOE Gutierrez [place] Insurance:UNITED TH MILESDOB: [facility] CARE [address] [place], [place] [id number] Number: Repository [id number] Date:9714-41-49XG [facility] 203370RVJTSMS, [place] [address]MM: 08/26/2017 Tertiary NOT GIVENUNK [place] Insurance:SELF PAY [facility] Number: Effective Repository Date:2017-07-19 08/17/2017 MOE Gutierrez Primary MOE Shanks [id number] Insurance:MEDICARE MILESDOB: [facility], PART A [address] [address]Tkd: Number: Repository [id number] () Date:2017-08-13 08/17/2017 Secondary MOE Gutierrez [place] Insurance:UNITED HLTH MILESDOB: [facility] CARE [address] [place], [place] [id number] [address] Number: Repository [id number] Date:3569-56-24SM [address]MW[place]OGA, [place] [address]IA: 08/17/2017 Tertiary NOT GIVENUNK [place] Insurance:SELF PAY [facility] Number: Effective Repository Date:2017-08-13 08/13/2017 MOE L Primary MOE Gutierrez [place] [id number] Insurance:MEDICARE MILESDOB: [facility], PART A [facility] [id number] Valley Hospital [address]Cod: Number: Repository [id number] (HP) Date:2017-08-13 08/13/2017 Secondary MOE Shanks Insurance:[facility]: [facility] CARE [id number] [id number] [facility] Number: Repository [id number] Date:1507-16-20NX [address]VGVTXQH, [place] [address]YW: 08/13/2017 Tertiary NOT GIVENLUCHO [place] Insurance:SELF PAY [facility] Effective Repository Date:2017-08-13
== END 2018-08-11 10:00 | disposition home or self-care (01) ==
LOC: LAB 09:53
PROVIDERS: Referring Provider Internal Medicine Cardiovascular Disease; Visit Provider Internal Medicine Cardiovascular Disease
DX: I48.91 Unspecified atrial fibrillation (principal)
CPT/HCPCS: 36415; 85610

== ENCOUNTER 2018-09-08 09:01 | Outpatient (RCR) | payer MEDICARE, OTHER, SELFPAY ==
[2018-08-11 10:48] VITALS: BMI 35.5
[2018-08-25 10:22] LABS: Color, Urine Yellow (Yellow); Glucose, Dipstick Normal (Normal); Ketone-Dipstick Negative (Negative); Leukocyte Esterase-Dipstick Negative /ul (Negative); Nitrite-Dipstick Negative (Negative); Occult Blood-Urine Negative /ul (Negative); Protein-Dipstick Negative (Negative); Specific Gravity, Urine 1.015 (1.002-1.030); Urine Bilirubin Dipstick Negative (Negative); Urine Clarity Clear (Clear); Urine Urobilinogen Normal (Normal)
[2018-08-25 10:24] LABS: Hematocrit 45.6 % (40-54); Hemoglobin 14.1 g/dl (13.0-16.5); Mean Corp Hgb Conc 30.9 g/gl (32-36); Mean Corpuscular Volume 103.4 fL (80-94); Mean Platelet Vol. 11.9 fl (6.2-12.0); Platelet Count 116 K/mm3 (150-450); RBC Distribution Width CV 15.4 % (11.6-14.6); RBC Distribution Width SD 58.1 fl (35.1-43.9); Red Blood Count 4.41 M/mm3 (4.6-6.2); White Blood Count 6.1 K/mm3 (4.4-11.0)
[2018-08-25 10:25] LABS: Scan Indicated on CBC? Y/N NO
[2018-08-25 10:36] LABS: International Normalized Ratio 1.4; Prothrombin Time (Protime)PT. 16.9 SECONDS (11.7-14.9)
[2018-08-25 10:57] LABS: Albumin, Serum 3.4 g/dL (3.2-5.0); BUN 53 mg/dL (7-18); BUN/Creat Ratio 23.7 RATIO (10-20); Calcium,Total 9.2 mg/dL (8.5-10.1); Chloride 99 mmol/L (98-107); Creatinine, Serum 2.24 mg/dL (0.70-1.30); EST Glomerular Filtration Rate 31 mL/min (>60); Est Glom Filt Rate - Afr Amer 38 mL/min (>60); Glucose 91 mg/dL (74-106); Phosphorus 3.4 mg/dL (2.5-4.9); Potassium 4.4 mmol/L (3.5-5.1); Sodium Level 139 mmol/L (136-145)
[2018-08-25 11:11] LABS: Microalbumin,Random Urine < 5.0 mg/L (NO RANGE EST.); Protein, Urine (Random) < 6.0 mg/dL (<11.9)
[2018-08-25 11:39] LABS: PTHIN 196.5 pg/mL (18.4-80.1)
[2018-09-08 09:26] LABS: International Normalized Ratio 1.6; Prothrombin Time (Protime)PT. 18.6 SECONDS (11.7-14.9)
== END 2018-09-15 14:19 | disposition home or self-care (01) ==
LOC: LAB 09:01
PROVIDERS: Referring Provider Internal Medicine Cardiovascular Disease; Visit Provider Internal Medicine Cardiovascular Disease
DX: I48.91 Unspecified atrial fibrillation (principal); D64.9 Anemia, unspecified; N18.3 Chronic kidney disease, stage 3 (moderate); N25.81 Secondary hyperparathyroidism of renal origin; E55.9 Vitamin D deficiency, unspecified
CPT/HCPCS: 36415; 80069; 81002; 82043; 82306; 82570; 83970; 84156; 85027; 85610

== ENCOUNTER 2018-10-07 09:16 | Outpatient (RCR) | payer MEDICARE, OTHER, SELFPAY ==
[2018-08-11 10:48] VITALS: BMI 35.5
[2018-09-23 10:10] LABS: International Normalized Ratio 1.8; Prothrombin Time (Protime)PT. 20.5 SECONDS (11.7-14.9)
[2018-10-07 10:30] LABS: Prothrombin Time (Protime)PT. 22.7 SECONDS (11.7-14.9)
== END 2018-10-07 10:00 | disposition home or self-care (01) ==
LOC: LAB 09:16
PROVIDERS: Referring Provider Internal Medicine Cardiovascular Disease; Visit Provider Internal Medicine Cardiovascular Disease
DX: I48.91 Unspecified atrial fibrillation (principal)
CPT/HCPCS: 36415; 85610

== ENCOUNTER 2018-11-03 08:26 | Day surgery (SDC) | payer MEDICARE, OTHER, SELFPAY ==
[2018-08-11 10:48] VITALS: BMI 35.5
[2018-10-28 11:17] VITALS: BMI 36.5
--- NOTE | 2018-10-28 12:12 | RAD_ITS ---
STUDY: X-RAY CHEST REASON FOR EXAM: Male, 67 years old. Preop, ICD generator change TECHNIQUE: PA and lateral views of the chest. COMPARISON: 12/02/2017 FINDINGS: Two lead cardiac conduction device is seen via the left subclavian vein with lead tips projecting over the right atrium and right ventricle, respectively. The right pleural effusion seen on the prior study has resolved. No airspace consolidation. There is moderate cardiac enlargement. Normal mediastinum and lee. Normal visualized pulmonary arteries. There is atherosclerotic calcification of the aortic arch with tortuosity. There are diffuse degenerative changes of the visualized thoracic spine. Normal visualized ribs, clavicles, and shoulders. There is no demonstrated abnormality of the visualized soft tissue structures of the upper abdomen. RAD/Chest PA and Lateral IMPRESSION: 1. No acute cardiopulmonary process. 2. Cardiomegaly. 3. Cardiac conduction device. Electronically Signed: Williams Cabral MD at 10:38 EDT , Service support ,
--- NOTE | 2018-10-28 12:25 | HP_ITS ---
HPI HPI Surgical H&P: Yes Details: MOE CAMEJO, is a 67 M who presents to the office today for an updated history and physical. His ICD has reached CAITLIN. He has history of ischemic cardiomyopathy, coronary artery disease, status post AICD placement, and asymptomatic chronic persistent atrial fibrillation with Coumadin therapy. From a cardiac standpoint, patient is doing well. He does not have any chest discomfort/heaviness/tightness. He does use O2 continously at 3 L. He does not have any worsening symptoms of shortness of breath. He denies any PND. He does not have any orthopnea. He does not have any symptoms of congestive heart failure. He does not have any palpitations that he is aware of. He does not have any lightheadedness or dizziness. He does not have any near-syncope or syncope. He does not have any lower extremity edema. He does not have any symptoms of claudication. He does see Pulmonary. Intake Vital Signs 10/28/18 Height 5 ft 7 in 10/28/18 Weight: 233 lb 10/28/18 Body Mass Index (BMI) 36.5 10/28/18 Blood Pressure 105/71 10/28/18 Blood Pressure Location Lt brachial 10/28/18 Blood Pressure Position Sitting 10/28/18 Respiratory Rate 20 H 10/28/18 Pulse Rate 88 10/28/18 Pulse Source Monitor 10/28/18 Pulse Ox 95 10/28/18 Oxygen Delivery Method nasal canula 10/28/18 Oxygen Flow Rate (L/min) 3 Intake Visit Reasons: Update H&P for susanKeri 11:00 Allergies No Known Allergies Allergy (Verified 08/11/18 10:52) Medications Albuterol IH (ProAir) [Proair Hfa] 1 - 2 puff INHALATION Q4H PRN PRN 12/01/17 [History Confirmed 10/28/18] Aspirin E.C. [Ecotrin] 81 mg PO DAILY@0800 12/01/17 [History Confirmed 10/28/18] Budesonide/Formoterol 160/4.5 [Symbicort 160/4.5 Mcg Inhaler (SP)] 1 puff INHALATION BID 12/01/17 [History Confirmed 10/28/18] Levothyroxine Sodium 112 mcg PO DAILY 12/01/17 [History Confirmed 10/28/18] Potassium Chloride [K-Dur] 10 meq PO BID 12/01/17 [History Confirmed 10/28/18] Tamsulosin HCl [Flomax] 0.4 mg PO DAILY 12/01/17 [History Confirmed 10/28/18] Tiotropium [place] [Spiriva Respimat] 2 puff INHALATION BID 12/01/17 [History Confirmed 10/28/18] Ferrous Sulfate 325 mg PO TIDCM #1 tab 12/04/17 [Rx Confirmed 10/28/18] spironolactone 25 mg tablet 25 mg PO DAILY #30 tab 12/29/17 [Rx Confirmed 10/28/18] carvedilol 25 mg tablet 25 mg PO BID #180 tab 05/20/18 [Rx Confirmed 10/28/18] warfarin 3 mg tablet 3 mg PO DAILY #90 tab 07/29/18 [Rx Confirmed 10/28/18] calcitriol 0.25 mcg capsule 0.25 mcg PO DAILY cap 08/11/18 [History Confirmed 10/28/18] hydralazine 25 mg tablet 25 mg PO BID #60 tab 09/16/18 [Rx Confirmed 10/28/18] amiodarone 200 mg tablet 200 mg PO DAILY #30 tab 09/26/18 [Rx Confirmed 10/28/18] ezetimibe 10 mg tablet 10 mg PO QHS #90 tab 10/05/18 [Rx Confirmed 10/28/18] fenofibrate nanocrystallized 145 mg tablet 145 mg PO QHS #90 tab 10/05/18 [Rx Confirmed 10/28/18] rosuvastatin 40 mg tablet 40 mg PO QHS #90 tab 10/05/18 [Rx Confirmed 10/28/18] furosemide 20 mg tablet 60 mg PO BID #180 tab 10/11/18 [Rx Confirmed 10/28/18] isosorbide dinitrate 5 mg tablet 5 mg PO TID #270 tab 10/24/18 [Rx Confirmed 10/28/18] FORMERLY [facility], [facility] Medical History Atherosclerotic heart disease of [place] coronary artery without angina pectoris (Chronic) Chronic systolic (congestive) heart failure (Chronic) halfway (current) use of anticoagulants (Chronic) History of stent insertion of renal artery (Chronic) Anemia (Chronic) Bilateral atelectasis (Chronic) Respiratory failure with hypoxia and hypercapnia (Chronic) Peripheral arterial occlusive disease (Chronic) Pleural effusion (Chronic) Ischemic cardiomyopathy (Chronic) Chronic anticoagulation (Chronic) Pulmonary hypertension (Chronic) Atrial fibrillation (Chronic) Hyperlipemia (Chronic) COPD (chronic obstructive pulmonary disease) (Chronic) Hypertension (Chronic) Urine retention (Chronic) BPH (benign prostatic hypertrophy) (Chronic) Hypothyroidism (Chronic) Former smoker, stopped smoking in distant past (Chronic) Pacemaker (Chronic) Diverticulosis (Chronic) Left renal artery stenosis (Chronic) Acute kidney injury on CKD stage III (Resolved) Acute kidney injury superimposed on chronic kidney disease (Resolved) Acute on chronic combined severe HF (Resolved) Acute on chronic respiratory failure with hypoxia and hypercapnia (Resolved) Acute systolic congestive heart failure (Resolved) Anasarca (Resolved) Warfarin-induced coagulopathy (Resolved) Surgical History History of stent insertion of renal artery (Chronic 03/14/08) Stented coronary artery (Chronic 12/27/13) Status post aortobifemoral bypass surgery (Chronic 04/25/01) AICD (automatic cardioverter/defibrillator) present (Chronic) Family History Father CAD (coronary artery disease) Mother CAD (coronary artery disease) Brother CAD (coronary artery disease) Hypertension Sister CAD (coronary artery disease) Hypertension Social History Smoking Status: Former smoker alcohol intake: never caffeine: Yes Type: coffee ROS Const Const: Negative for fatigue, weakness, fever(s) or headache(s) Eyes Eyes: Negative for blind spots, loss of peripheral vision or transient loss of vision ENT ENT: Negative for headache(s), dizziness, tinnitus or Nosebleed/epistaxis Cardio Chest Pain: No Palpitations: No Edema: None Muscle aches with walking: None Resp Respiratory: Negative for SOB with activity, SOB at rest, SOB orthopnea\SOB lying down or Cough GI GI: Negative nausea, vomiting, heartburn or vomiting blood/hematemesis : Negative for hematuria Musc Musc: Negative for muscle aches/ myalgia Neuro Neuro: Negative for dizziness, lightheadedness, near syncope, syncope, orthostatic symptoms, headache(s) or weakness Jeremy Hematologic/Lymphatic: Negative for easy bleeding Endo Endo: Negative for fatigue Assessment & Plan Orders Orders: 12 Lead EKG performed by [facility] Today I25.10, I48.91 T4 Free Direct 6 Months I50.22 Thyroid Stim Hormone (TSH) 6 Months I50.22 Plan Detail Follow Up 10/28/18 (keep as is- please print labs for him- thanks) Supplemental Info Supplemental Information Echocardiogram in November 2017 demonstrated: Severely dilated left ventricle. The estimated ejection fraction is 15 %. There is severe global hypokinesis of the left ventricle. Mildly dilated right ventricle. The left atrium is severely enlarged. The right atrium is moderately enlarged. Mild (1+) eccentric mitral valve insufficiency. Mild to moderate (1-2+) tricuspid valve insufficiency. Right ventricular systolic pressure estimated to be 69 mmHg. Severe pulmonary hypertension. The inferior vena cava is dilated Compared to echo report dated 10/27/2016, LV Function has remained the same. RVSP has increased from 55 to 69 mm Hg. Pt appears to be in atrial fibrillation. Stress test in 2016 demonstrated: Rest and stress SPECT Cardiolite nuclear imaging demonstrate myocardial perfusion changes compatible with an area of an extensive myocardial injury/infarction involving the inferior and inferolateral segments as well as post stress changes appearing compatible with mild periinfarct related myocardial ischemia in the basal anterolateral as well as the mid inferoseptal segments. Heart catheterization in 2016 demonstrated: 1. Widely patent LAD and left circumflex stents. 2. Chronically occluded right coronary artery. 3. Severe LV dysfunction with an EF of 15-20% with regional wall motion abnormalities as described. 4. Moderately elevated LVEDP. 5. Normal adequately controlled systemic pressures. Diagnostics Electrocardiogram 10/28/18 Pacemaker Check 08/11/18
[2018-10-28 12:27] LABS: Bacteria 0 SEEN /hpf (None Seen); Mucous, Urine 0 SEEN /hpf (<or=2+); Squamous Epithelial Cells - UA 0 SEEN /hpf (0-5); White Blood Cells 0 SEEN /hpf (0-5)
[2018-10-28 13:32] LABS: Color, Urine Yellow (Yellow); Glucose, Dipstick Normal (Normal); Hematocrit 42.6 % (40-54); Hemoglobin 13.3 g/dl (13.0-16.5); Ketone-Dipstick Negative (Negative); Leukocyte Esterase-Dipstick Negative /ul (Negative); Mean Corp Hgb Conc 31.2 g/gl (32-36); Mean Corpuscular Volume 102.4 fL (80-94); Nitrite-Dipstick Negative (Negative); Occult Blood-Urine 10 /ul (Negative); Platelet Count 122 K/mm3 (150-450); Protein-Dipstick Negative (Negative); RBC Distribution Width CV 15.1 % (11.6-14.6); RBC Distribution Width SD 55.9 fl (35.1-43.9); Red Blood Count 4.16 M/mm3 (4.6-6.2); Scan Indicated on CBC? Y/N NO; Specific Gravity, Urine 1.015 (1.002-1.030); Urine Bilirubin Dipstick Negative (Negative); Urine Clarity Sl. Cloudy (Clear); Urine Urobilinogen Normal (Normal); White Blood Count 6.6 K/mm3 (4.4-11.0)
[2018-10-28 13:38] LABS: International Normalized Ratio 2.6; Prothrombin Time (Protime)PT. 27.6 SECONDS (11.7-14.9)
[2018-10-28 13:40] LABS: Hyaline Cast 0-5 SEEN /lpf (0-5); Red Blood Cells-Urine 0-5 SEEN /hpf (0-5)
[2018-10-28 14:22] LABS: Anion Gap 5 (5-15); BUN 63 mg/dL (7-18); BUN/Creat Ratio 26.5 RATIO (10-20); Calcium,Total 9.3 mg/dL (8.5-10.1); Chloride 100 mmol/L (98-107); Creatinine, Serum 2.38 mg/dL (0.70-1.30); EST Glomerular Filtration Rate 29 mL/min (>60); Est Glom Filt Rate - Afr Amer 35 mL/min (>60); Glucose 104 mg/dL (74-106); Potassium 4.5 mmol/L (3.5-5.1); Sodium Level 141 mmol/L (136-145)
[2018-11-02 10:17] VITALS: BMI 36.5
[2018-11-03 08:50] LABS: Prothrombin Time Fingerstick 46.2 SEC (11.9-14.4)
[2018-11-03 09:25] LABS: International Normalized Ratio 2.4; Prothrombin Time (Protime)PT. 25.9 SECONDS (11.7-14.9)
--- NOTE | 2018-11-03 10:51 | PCM.OPRPT ---
Problem List (1) AICD (automatic cardioverter/defibrillator) present Status: Chronic
== END 2018-11-03 12:05 | disposition home or self-care (01) ==
PROVIDERS: Internal Medicine Cardiovascular Disease; Referring Provider Internal Medicine Cardiovascular Disease; Visit Provider Internal Medicine Cardiovascular Disease
DX: Z45.010 Encounter for checking and testing of cardiac pacemaker pulse generator [battery] (principal); I25.10 Atherosclerotic heart disease of native coronary artery without angina pectoris; I25.5 Ischemic cardiomyopathy; I48.1 Persistent atrial fibrillation; I48.2 Chronic atrial fibrillation; I13.0 Hypertensive heart and chronic kidney disease with heart failure and stage 1 through stage 4 chronic kidney disease, or unspecified chronic kidney disease; N18.3 Chronic kidney disease, stage 3 (moderate); I50.43 Acute on chronic combined systolic (congestive) and diastolic (congestive) heart failure; D63.1 Anemia in chronic kidney disease; J44.9 Chronic obstructive pulmonary disease, unspecified; J96.22 Acute and chronic respiratory failure with hypercapnia; J96.21 Acute and chronic respiratory failure with hypoxia; E78.5 Hyperlipidemia, unspecified; E03.9 Hypothyroidism, unspecified; I27.20 Pulmonary hypertension, unspecified; N40.1 Benign prostatic hyperplasia with lower urinary tract symptoms; R33.8 Other retention of urine; Z79.82 Long term (current) use of aspirin; Z95.810 Presence of automatic (implantable) cardiac defibrillator; Z79.01 Long term (current) use of anticoagulants; Z79.899 Other long term (current) drug therapy; Z87.891 Personal history of nicotine dependence; Z00.6 Encounter for examination for normal comparison and control in clinical research program
CPT/HCPCS: 33263; 36415; 36416; 71046; 80048; 81001; 85027; 85610; 93641; 99152; 99153; J7040; J7050

== ENCOUNTER 2018-11-29 10:17 | Emergency (ER) | payer MEDICARE, OTHER, SELFPAY ==
[2018-11-02 10:17] VITALS: BMI 36.5
[2018-11-29 10:18] VITALS: BP 125/72; PULSE 90; RESP 20; TEMP 36.6; O2SAT 90; BMI 35.2
[2018-11-29] MEDS: HYDROcodone Bitartrate/Apap 5/325 Tablet PO (11:10)
[2018-11-29 11:29] LABS: Erythrocyte Sedimentation Rate 19 mm/hr (0-20)
--- NOTE | 2018-11-29 11:32 | RAD_ITS ---
STUDY: X-RAY - RIGHT ELBOW REASON FOR EXAM: Male, 67 years old. Extreme pain and swelling. No known injury. TECHNIQUE: 3 view(s) of the elbow. COMPARISON: None. FINDINGS: Degenerative spur along the posterior olecranon. Normal radiocapitellar and ulnotrochlear articulations. Joint effusion. Soft tissue swelling. Vascular calcification. RAD/Elbow min 3 Views IMPRESSION: Joint effusion. Diffuse soft tissue swelling. Posterior olecranon spur. Electronically Signed: Tra Myrick, at 12:19 EDT , Service support ,
[2018-11-29 11:34] LABS: Hematocrit 44.3 % (40-54); Hemoglobin 13.7 g/dl (13.0-16.5); Mean Corp Hgb Conc 30.9 g/gl (32-36); Mean Corpuscular Hgb 31.5 pg (27.0-32.0); Mean Corpuscular Volume 101.8 fL (80-94); Mean Platelet Vol. 11.4 fl (6.2-12.0); Platelet Count 121 K/mm3 (150-450); RBC Distribution Width CV 14.8 % (11.6-14.6); RBC Distribution Width SD 55.2 fl (35.1-43.9); Red Blood Count 4.35 M/mm3 (4.6-6.2); Scan Indicated on CBC? Y/N NO; White Blood Count 8.3 K/mm3 (4.4-11.0)
[2018-11-29 11:38] LABS: Anion Gap 3 (5-15); BUN 52 mg/dL (7-18); BUN/Creat Ratio 25.9 RATIO (10-20); Calcium,Total 9.7 mg/dL (8.5-10.1); Chloride 98 mmol/L (98-107); Creatinine, Serum 2.01 mg/dL (0.70-1.30); EST Glomerular Filtration Rate 35 mL/min (>60); Est Glom Filt Rate - Afr Amer 43 mL/min (>60); Estimated Creatinine Clearance 32.43 ml/min; Glucose 125 mg/dL (74-106); Potassium 4.2 mmol/L (3.5-5.1); Sodium Level 141 mmol/L (136-145)
--- NOTE | 2018-11-29 13:18 | ED.VISSUMM ---
- ER Visit Summary Date of Service: 11/29/18 Chief Complaint: Right elbow pain History of Present Illness: The patient is a 67 M who presents with right elbow pain and swelling that has been getting worse over the past 3 days. Patient describes the pain as aching and stabbing. Patient states the pain is worse with certain movements. Patient denies any paresthesias or weakness. Patient denies any fevers or chills. Patient denies any trauma or injury. Patient denies any nausea or vomiting. Patient denies any other symptoms. Physical Examination: Vital signs are stable. Patient is afebrile. Patient is in no acute distress. Musculoskeletal exam reveals tenderness over the right elbow. Range of motion was limited in all motion secondary to pain. There is no pain with short arc range of motion. Radial pulses are equal bilaterally. Sensation was intact to light touch in the radial, median, and ulnar areas. Capillary refill is less than 2 seconds in all digits. Strength is 5/5 in the radial, median, and ulnar areas. Test Results: X-rays of the right elbow were obtained. There is a mild effusion. There is no fracture. CBC was normal. Sed rate was normal. CRP was elevated at 125. BUN and creatinine were elevated at 52 and 2.01. These are similar to prior results. Emergency Department Course and Treatment: Since the patient has normal white blood cell count and normal sed rate as well as no pain with short arc range of motion, I do not feel the patient has a septic joint at this time. Patient was given a dose of [place] here. Patient felt better on reevaluation. Patient was instructed to use ice to the area. Patient was given a prescription for a short course of [place]. Patient was instructed to follow-up with his primary care physician in 5 to 7 days. Patient understood and was agreeable with the plan. All questions were answered. Disposition: Discharge home Impression: Right elbow pain This note was generated with [employer] dictation software. It may contain incorrect words, spelling, and punctuation that were not noted in review of the chart prior to signing ED Disposition - Plan for ED Patient: Disposition: Home or Assisted Living Diagnosis: Right elbow pain Instructions: ED Sprain Elbow Prescriptions: Hydrocodone Bitart/Apap 5-325 [[place] 5MG-325MG] 1 tab PO Q6H PRN PRN 3 Days #10 tab PRN Reason: Pain Referrals: Tyrone Bhakta [Primary Care Provider] - 3-5 Days
--- NOTE | 2018-11-29 13:22 | ED.DCSUM_ITS ---
- ER Visit Summary Date of Service: 11/29/18 Chief Complaint: Right elbow pain History of Present Illness: The patient is a 67 M who presents with right elbow pain and swelling that has been getting worse over the past 3 days. Patient describes the pain as aching and stabbing. Patient states the pain is worse with certain movements. Patient denies any paresthesias or weakness. Patient denies any fevers or chills. Patient denies any trauma or injury. Patient denies any nausea or vomiting. Patient denies any other symptoms. Physical Examination: Vital signs are stable. Patient is afebrile. Patient is in no acute distress. Musculoskeletal exam reveals tenderness over the right elbow. Range of motion was limited in all motion secondary to pain. There is no pain with short arc range of motion. Radial pulses are equal bilaterally. Sensation was intact to light touch in the radial, median, and ulnar areas. Capillary refill is less than 2 seconds in all digits. Strength is 5/5 in the radial, median, and ulnar areas. Test Results: X-rays of the right elbow were obtained. There is a mild effusion. There is no fracture. CBC was normal. Sed rate was normal. CRP was elevated at 125. BUN and creatinine were elevated at 52 and 2.01. These are similar to prior results. Emergency Department Course and Treatment: Since the patient has normal white blood cell count and normal sed rate as well as no pain with short arc range of motion, I do not feel the patient has a septic joint at this time. Patient was given a dose of [place] here. Patient felt better on reevaluation. Patient was instructed to use ice to the area. Patient was given a prescription for a short course of [place]. Patient was instructed to follow-up with his primary care physician in 5 to 7 days. Patient understood and was agreeable with the plan. All questions were answered. Disposition: Discharge home Impression: Right elbow pain This note was generated with [employer] dictation software. It may contain incorrect words, spelling, and punctuation that were not noted in review of the chart prior to signing ED Disposition - Plan for ED Patient: Disposition: Home or Assisted Living Diagnosis: Right elbow pain Instructions: ED Sprain Elbow Prescriptions: Hydrocodone Bitart/Apap 5-325 [[place] 5MG-325MG] 1 tab PO Q6H PRN PRN 3 Days #10 tab PRN Reason: Pain Referrals: Tyrone Bhakta [Primary Care Provider] - 3-5 Days
[2018-11-29 13:33] VITALS: O2SAT 97
== END 2018-11-29 13:35 | disposition home or self-care (01) ==
PROVIDERS: Emergency Provider Emergency Medicine
DX: M25.521 Pain in right elbow (principal); I50.9 Heart failure, unspecified; J44.9 Chronic obstructive pulmonary disease, unspecified; Z79.82 Long term (current) use of aspirin; Z79.01 Long term (current) use of anticoagulants; Z79.899 Other long term (current) drug therapy; Z95.810 Presence of automatic (implantable) cardiac defibrillator
CPT/HCPCS: 73080; 80048; 85027; 85652; 86140; 99284; A4216

== ENCOUNTER 2018-12-16 08:16 | Outpatient (RCR) | payer MEDICARE, OTHER, SELFPAY ==
[2018-08-11 10:48] VITALS: BMI 35.5
[2018-12-16 08:53] LABS: Prothrombin Time (Protime)PT. 22.6 SECONDS (11.7-14.9)
== END 2018-12-16 10:00 | disposition home or self-care (01) ==
LOC: LAB 08:16
PROVIDERS: Referring Provider Internal Medicine Cardiovascular Disease; Visit Provider Internal Medicine Cardiovascular Disease
DX: I48.91 Unspecified atrial fibrillation (principal); Z79.01 Long term (current) use of anticoagulants
CPT/HCPCS: 36415; 85610

== ENCOUNTER 2018-12-30 08:08 | Outpatient (RCR) | payer MEDICARE, OTHER, SELFPAY | END 2019-01-15 12:00 | disposition home or self-care (01) | LOC: LAB 08:08 | PROVIDERS: Referring Provider Internal Medicine Cardiovascular Disease; Visit Provider Internal Medicine Cardiovascular Disease | DX: I48.91 Unspecified atrial fibrillation (principal); Z79.01 Long term (current) use of anticoagulants | CPT/HCPCS: 36415; 85610 ==

== ENCOUNTER 2019-01-24 08:23 | Outpatient (RCR) | payer MEDICARE, OTHER, SELFPAY ==
[2019-01-24 09:33] LABS: International Normalized Ratio 2.2; Prothrombin Time (Protime)PT. 24.8 SECONDS (11.7-14.9)
== END 2019-01-24 09:00 | disposition home or self-care (01) ==
LOC: LAB 08:23
PROVIDERS: Referring Provider Internal Medicine Cardiovascular Disease; Visit Provider Internal Medicine Cardiovascular Disease
DX: I48.91 Unspecified atrial fibrillation (principal); Z79.01 Long term (current) use of anticoagulants
CPT/HCPCS: 36415; 85610

== ENCOUNTER 2019-02-24 08:32 | Outpatient (RCR) | payer MEDICARE, OTHER, SELFPAY ==
[2019-02-24 09:05] LABS: Color, Urine Yellow (Yellow); Glucose, Dipstick Normal (Normal); Ketone-Dipstick Negative (Negative); Leukocyte Esterase-Dipstick Negative /ul (Negative); Nitrite-Dipstick Negative (Negative); Occult Blood-Urine Negative /ul (Negative); Protein-Dipstick Negative (Negative); Urine Bilirubin Dipstick Negative (Negative); Urine Clarity Sl. Cloudy (Clear); Urine Urobilinogen Normal (Normal)
[2019-02-24 09:07] LABS: Hematocrit 44.8 % (40-54); Hemoglobin 13.9 g/dL (13.0-16.5); Mean Corpuscular Hgb 31.1 pg (27.0-32.0); Mean Corpuscular Volume 100.2 fL (80-94); Mean Platelet Vol. 11.4 fl (6.2-12.0); Platelet Count 138 K/mm3 (150-450); RBC Distribution Width CV 15.2 % (11.6-14.6); RBC Distribution Width SD 56.8 fl (35.1-43.9); Red Blood Count 4.47 M/mm3 (4.6-6.2); White Blood Count 6.7 K/mm3 (4.4-11.0)
[2019-02-24 09:12] LABS: International Normalized Ratio 2.3; Prothrombin Time (Protime)PT. 25.7 SECONDS (11.7-14.9)
[2019-02-24 09:28] LABS: Microalbumin,Random Urine < 5.0 mg/L (NO RANGE EST.); Protein, Urine (Random) 7.4 mg/dL (<11.9); Protein:Creat Ratio 243 mg/g CRE (0-200)
[2019-02-24 09:30] LABS: Albumin, Serum 3.2 g/dL (3.2-5.0); BUN 52 mg/dL (7-18); BUN/Creat Ratio 23.1 RATIO (10-20); Calcium,Total 9.6 mg/dL (8.5-10.1); Chloride 96 mmol/L (98-107); Creatinine, Serum 2.25 mg/dL (0.70-1.30); EST Glomerular Filtration Rate 31 mL/min (>60); Est Glom Filt Rate - Afr Amer 37 mL/min (>60); Glucose 111 mg/dL (74-106); Phosphorus 2.9 mg/dL (2.5-4.9); Potassium 4.7 mmol/L (3.5-5.1); Sodium Level 140 mmol/L (136-145)
[2019-02-24 09:34] LABS: PTHIN 165.6 pg/mL (18.4-80.1); Vitamin D,25 Hydroxy 37.2 ng/mL (29.95-100.01)
== END 2019-02-24 10:00 ==
LOC: LAB 08:32
PROVIDERS: Referring Provider Internal Medicine Cardiovascular Disease; Visit Provider Internal Medicine Cardiovascular Disease
DX: I48.91 Unspecified atrial fibrillation (principal); Z79.01 Long term (current) use of anticoagulants; N18.3 Chronic kidney disease, stage 3 (moderate); E55.9 Vitamin D deficiency, unspecified; N25.81 Secondary hyperparathyroidism of renal origin; D64.9 Anemia, unspecified
CPT/HCPCS: 36415; 80069; 81002; 82043; 82306; 82570; 83970; 84156; 85027; 85610

== ENCOUNTER 2019-04-11 08:18 | Outpatient (RCR) | payer MEDICARE, OTHER, SELFPAY ==
[2019-03-02 11:13] VITALS: BMI 35.6
[2019-03-24 07:35] LABS: International Normalized Ratio 3.5
[2019-03-24 08:04] LABS: ALB/GLOB Ratio 0.8 RATIO (0.9-2.4); AST(SGOT) 18 U/L (15-37); Alanine Aminotransfer ALT/SGPT 17 U/L (16-61); Albumin, Serum 3.3 g/dL (3.2-5.0); Alkaline Phosphatase 22 U/L (45-117); Anion Gap 4 (5-15); BUN 56 mg/dL (7-18); BUN/Creat Ratio 22.5 RATIO (10-20); Calcium,Total 9.4 mg/dL (8.5-10.1); Chloride 97 mmol/L (98-107); Cholesterol 120 mg/dL (200); Creatinine, Serum 2.49 mg/dL (0.70-1.30); EST Glomerular Filtration Rate 27 mL/min (>60); Est Glom Filt Rate - Afr Amer 33 mL/min (>60); Globulin 4.1 g/dL (2.2-4.2); Glucose 89 mg/dL (74-106); High Density Lipoprotein 33 mg/dL; Potassium 4.6 mmol/L (3.5-5.1); Protein, Total 7.4 g/dL (6.4-8.2); Sodium Level 141 mmol/L (136-145); T4 Free Direct 1.74 ng/dL (0.76-1.46); Thyroid Stim Hormone (TSH) 5.86 uIU/mL (0.358-3.74); Triglycerides 113 mg/dL; Very Low Density Lipoprotein 23 mg/dL (5-40)
[2019-03-24 08:24] LABS: Prothrombin Time (Protime)PT. 35.5 SECONDS (11.7-14.9)
[2019-03-31 07:39] LABS: Prothrombin Time (Protime)PT. 42.7 SECONDS (11.7-14.9)
[2019-03-31 07:52] LABS: International Normalized Ratio 4.4
[2019-04-04 07:47] LABS: Prothrombin Time (Protime)PT. 31.5 SECONDS (11.7-14.9)
[2019-04-11 08:44] LABS: International Normalized Ratio 2.3; Prothrombin Time (Protime)PT. 24.9 SECONDS (11.7-14.9)
== END 2019-04-11 11:00 | disposition home or self-care (01) ==
LOC: LAB 08:18
PROVIDERS: Referring Provider Internal Medicine Cardiovascular Disease; Visit Provider Internal Medicine Cardiovascular Disease
DX: I48.91 Unspecified atrial fibrillation (principal); Z79.01 Long term (current) use of anticoagulants; I11.0 Hypertensive heart disease with heart failure; I50.9 Heart failure, unspecified; E78.5 Hyperlipidemia, unspecified; E03.9 Hypothyroidism, unspecified; I50.22 Chronic systolic (congestive) heart failure
CPT/HCPCS: 36415; 80053; 80061; 84439; 84443; 85610

== ENCOUNTER 2019-05-10 08:14 | Outpatient (RCR) | payer MEDICARE, OTHER, SELFPAY ==
[2019-03-02 11:13] VITALS: BMI 35.6
[2019-04-25 10:18] LABS: International Normalized Ratio 1.7; Prothrombin Time (Protime)PT. 19.8 SECONDS (11.7-14.9)
[2019-05-10 09:28] LABS: International Normalized Ratio 1.8; Prothrombin Time (Protime)PT. 20.7 SECONDS (11.7-14.9)
== END 2019-05-10 18:00 | disposition home or self-care (01) ==
LOC: LAB 08:14
PROVIDERS: Referring Provider Internal Medicine Cardiovascular Disease; Visit Provider Internal Medicine Cardiovascular Disease
DX: I48.91 Unspecified atrial fibrillation (principal); Z79.01 Long term (current) use of anticoagulants
CPT/HCPCS: 36415; 85610

== ENCOUNTER → 2019-08-30 08:20 | Outpatient (CLI) | payer MEDICARE, OTHER, SELFPAY ==
[2019-03-02 11:13] VITALS: BMI 35.6
[2019-08-30 08:53] LABS: Hematocrit 44.5 % (40-54); Mean Corp Hgb Conc 31.5 g/dL (32-36); Mean Corpuscular Hgb 32.6 pg (27.0-32.0); Mean Corpuscular Volume 103.5 fL (80-94); Mean Platelet Vol. 11.4 fl (6.2-12.0); Platelet Count 137 K/mm3 (150-450); RBC Distribution Width CV 15.6 % (11.6-14.6); RBC Distribution Width SD 58.7 fl (35.1-43.9); White Blood Count 6.8 K/mm3 (4.4-11.0)
[2019-08-30 09:06] LABS: Microalbumin,Random Urine 40.3 mg/L (NO RANGE EST.); Protein, Urine (Random) 9.2 mg/dL (<11.9); Protein:Creat Ratio 201 mg/g CRE (0-200)
[2019-08-30 09:29] LABS: BUN 44 mg/dL (7-18); Creatinine, Serum 2.31 mg/dL (0.70-1.30); Glucose 116 mg/dL (74-106)
[2019-08-30 09:30] LABS: Albumin, Serum 3.3 g/dL (3.2-5.0); Calcium,Total 10.3 mg/dL (8.5-10.1); Chloride 97 mmol/L (98-107); EST Glomerular Filtration Rate 30 mL/min (>60); Est Glom Filt Rate - Afr Amer 36 mL/min (>60); Phosphorus 3.5 mg/dL (2.5-4.9); Potassium 5.1 mmol/L (3.5-5.1); Sodium Level 138 mmol/L (136-145)
[2019-08-30 09:32] LABS: Vitamin D,25 Hydroxy 32.8 ng/mL (29.95-100.01)
[2019-08-30 09:33] LABS: PTHIN 71.8 pg/mL (18.4-80.1)
[2019-08-30 10:00] LABS: Color, Urine Yellow (Yellow); Glucose, Dipstick Normal (Normal); Ketone-Dipstick Negative (Negative); Leukocyte Esterase-Dipstick Negative /ul (Negative); Nitrite-Dipstick Negative (Negative); Occult Blood-Urine 10 /ul (Negative); Protein-Dipstick Negative (Negative); Urine Bilirubin Dipstick Negative (Negative); Urine Clarity Clear (Clear); Urine Urobilinogen Normal (Normal); Urine pH 6.5 (5.0 - 8.0)
== END ==
PROVIDERS: Referring Provider Internal Medicine Nephrology; Visit Provider Internal Medicine Nephrology
DX: N18.3 Chronic kidney disease, stage 3 (moderate) (principal); E55.9 Vitamin D deficiency, unspecified; N25.81 Secondary hyperparathyroidism of renal origin; D64.9 Anemia, unspecified
CPT/HCPCS: 36415; 80069; 81002; 82043; 82306; 82570; 83970; 84156; 85027

== ENCOUNTER → 2019-10-02 08:34 | Outpatient (CLI) | payer MEDICARE, OTHER, SELFPAY ==
[2019-09-14 10:23] VITALS: BMI 35.6
--- NOTE | 2019-10-02 08:35 | US_ITS ---
STUDY: RENAL ULTRASOUND - COMPLETE REASON FOR EXAM: Male, 68 years old. CKD 3 TECHNIQUE: Ultrasound evaluation of the kidneys was performed with real-time and static alvarado-scale imaging. COMPARISON: None. FINDINGS: RIGHT KIDNEY: Normal location of the right kidney, which is normal in size. The right kidney measures 11 cm x 5.9 cm x 5.8 cm. There is a normal cortex of the right kidney. The renal cortex measures 1.0 cm. Increased echogenicity of the cortex suggestive of medical renal disease. There is no right renal mass or cyst. There are no right renal calculi. There is no right hydronephrosis. Mild degree of perinephric stranding. DISTAL RIGHT URETER: There is non-visualization of the distal right ureter. There is no demonstrated right ureterovesical junction calculus. There is no demonstrated right ureteral jet. LEFT KIDNEY: Normal location of the left kidney, which is normal in size. The left kidney measures 10.9 centimeters x 4.87 x 5.1 cm. There is diffuse thinning of the renal cortex. The renal cortex measures 0.8 cm. There is a 10 mm x 11 mm x 8 mm renal cysts. There are no left renal calculi. There is no left hydronephrosis. Nonspecific perinephric stranding. DISTAL LEFT URETER: There is non-visualization of the distal left ureter. There is no demonstrated left ureterovesical junction calculus. There is no demonstrated left ureteral jet. BLADDER: The distended urinary bladder has a volume of 55 ml. The bladder is not adequately distended for assessment of the bladder wall thickness. US/Kidney and Bladder IMPRESSION: Mild degree of the left renal parenchymal thinning. Increased cortical echotexture suggestive of medical renal disease. Small left renal cysts. Electronically Signed: Tra Myrick, at 14:13 EDT , Service support ,
== END ==
PROVIDERS: Referring Provider Internal Medicine; Visit Provider Internal Medicine
DX: I13.10 Hypertensive heart and chronic kidney disease without heart failure, with stage 1 through stage 4 chronic kidney disease, or unspecified chronic kidney disease (principal); N18.3 Chronic kidney disease, stage 3 (moderate)
CPT/HCPCS: 76770

== ENCOUNTER → 2019-12-25 06:12 | Outpatient (CLI) | payer MEDICARE, OTHER, SELFPAY ==
[2019-09-14 10:23] VITALS: BMI 35.6
[2019-12-25 06:58] LABS: AST(SGOT) 15 U/L (15-37); Alanine Aminotransfer ALT/SGPT 15 U/L (16-61); Albumin, Serum 3.2 g/dL (3.2-5.0); Alkaline Phosphatase 28 U/L (45-117); Anion Gap 5 (5-15); BUN 55 mg/dL (7-18); BUN/Creat Ratio 22.4 RATIO (10-20); Bilirubin, Direct 0.16 mg/dL (0.00-0.30); Calcium,Total 9.3 mg/dL (8.5-10.1); Chloride 93 mmol/L (98-107); Cholesterol 112 mg/dL (200); Creatinine, Serum 2.45 mg/dL (0.70-1.30); EST Glomerular Filtration Rate 28 mL/min (>60); Est Glom Filt Rate - Afr Amer 34 mL/min (>60); Globulin 4.3 g/dL (2.2-4.2); Glucose 104 mg/dL (74-106); High Density Lipoprotein 28 mg/dL; Potassium 4.4 mmol/L (3.5-5.1); Protein, Total 7.5 g/dL (6.4-8.2); Sodium Level 137 mmol/L (136-145); Triglycerides 106 mg/dL; Very Low Density Lipoprotein 21 mg/dL (5-40)
== END ==
PROVIDERS: Referring Provider Internal Medicine Cardiovascular Disease; Visit Provider Internal Medicine Cardiovascular Disease
DX: N18.3 Chronic kidney disease, stage 3 (moderate) (principal); I25.10 Atherosclerotic heart disease of native coronary artery without angina pectoris; E78.5 Hyperlipidemia, unspecified
CPT/HCPCS: 36415; 80048; 80061; 80076

== ENCOUNTER → 2020-04-26 08:32 | Outpatient (CLI) | payer MEDICARE, OTHER, SELFPAY ==
[2020-03-28 10:13] VITALS: BMI 34.7
[2020-04-26 08:39] LABS: Bacteria 0 SEEN /hpf (None Seen); Mucous, Urine 0 SEEN /hpf (<or=2+); Red Blood Cells-Urine 0 SEEN /hpf (0-5); Squamous Epithelial Cells - UA 0 SEEN /hpf (0-5); White Blood Cells 0 SEEN /hpf (0-5)
[2020-04-26 08:52] LABS: Color, Urine Yellow (Yellow); Glucose, Dipstick Normal (Normal); Ketone-Dipstick Negative (Negative); Leukocyte Esterase-Dipstick Negative /ul (Negative); Nitrite-Dipstick Negative (Negative); Occult Blood-Urine 10 /ul (Negative); Protein-Dipstick Negative (Negative); Urine Bilirubin Dipstick Negative (Negative); Urine Clarity Clear (Clear); Urine Urobilinogen Normal (Normal)
[2020-04-26 09:02] LABS: Protein, Urine (Random) 6.7 mg/dL (<11.9); Protein:Creat Ratio 198 mg/g CRE (0-200)
[2020-04-26 09:22] LABS: PTHIN 213.8 pg/mL (18.4-80.1)
[2020-04-26 09:25] LABS: Anion Gap 3 (5-15); BUN 56 mg/dL (7-18); BUN/Creat Ratio 28.6 RATIO (10-20); Calcium,Total 9.4 mg/dL (8.5-10.1); Chloride 97 mmol/L (98-107); Creatinine, Serum 1.96 mg/dL (0.70-1.30); EST Glomerular Filtration Rate 36 mL/min (>60); Est Glom Filt Rate - Afr Amer 44 mL/min (>60); Glucose 135 mg/dL (74-106); Phosphorus 3.9 mg/dL (2.5-4.9); Potassium 4.2 mmol/L (3.5-5.1); Sodium Level 140 mmol/L (136-145); Vitamin D,25 Hydroxy 40.9 ng/mL
== END ==
PROVIDERS: Visit Provider Internal Medicine
DX: N18.30 Chronic kidney disease, stage 3 unspecified (principal); E83.52 Hypercalcemia
CPT/HCPCS: 36415; 80048; 81001; 82306; 82570; 83970; 84100; 84156

== ENCOUNTER 2020-08-07 10:06 | Inpatient (IN) | payer MEDICARE, OTHER, SELFPAY ==
[2020-03-28 10:13] VITALS: BMI 34.7
[2020-08-07] VITALS (13 sets, daily range): BP systolic 107–155; BP diastolic 53–84; PULSE 50–154; RESP 15–29; TEMP 36–37.1; O2SAT 85–100; BMI 35.6; BMI 33.6
[2020-08-07] MEDS: Etomidate 20 MG/10 ML Vial 10 MG IV (10:12)
--- NOTE | 2020-08-07 10:18 | RAD_ITS ---
STUDY: X-RAY CHEST REASON FOR EXAM: Male, 69 years old. Weakness, heart racing. Pt has hx of afib, CHF, HX WI TECHNIQUE: Single AP portable view of the chest. COMPARISON: Comparison is made with prior examination of 10/28/2018. FINDINGS: The lungs are clear and expanded. There is no demonstrated pleural abnormality. There is moderate cardiac enlargement. A left-sided dual-chamber pacemaker is seen. Normal mediastinum and lee. Normal visualized pulmonary arteries. There is atherosclerotic calcification of the aortic arch with tortuosity. There are diffuse degenerative changes of the visualized thoracic spine. Normal visualized ribs, clavicles, and shoulders. There is no demonstrated abnormality of the visualized soft tissue structures of the upper abdomen. RAD/Chest 1 View (Portable) IMPRESSION: Moderate cardiomegaly. Electronically Signed: Tra Myrick MD at 11:00 EST , Service support ,
--- NOTE | 2020-08-07 10:19 | EKG12_ITS ---
Test Reason : TACHY Blood Pressure : / mmHG Vent. Rate : 080 BPM Atrial Rate : 080 BPM P-R Int : 278 ms QRS Dur : 196 ms QT Int : 456 ms P-R-T Axes : 000 -71 101 degrees QTc Int : 525 ms Atrial-sensed ventricular-paced rhythm with prolonged AV conduction Abnormal ECG Confirmed by GAGE MESSINA, NIKOLAS ([id number]), desk editor MIKHAIL SANCHEZ ([id number]) on 08/12/2020 12:52:54 PM Referred By: ADAIR Confirmed By:NIKOLAS ALMONTE MD
--- NOTE | 2020-08-07 10:20 | ED.VIS.GEN ---
History of Present Illness Chief Complaint: Palpitations Detail of Chief Complaint: Shortness of breath Informant: Patient Onset: Hours Context: Sudden Onset Timing: Continuous Quality: Dyspnea Location: Home Current Severity: Mild Maximum Severity: Moderate Worsened by: Activity Relieved by: Nothing Associated Symptoms: Rapid heartbeat Narrative: Patient is an elderly male with known coronary disease and stent in his LAD and circumflex with a totally occluded RCA who has an EF of approximately 15%. He does have a pacemaker defibrillator. Does have underlying rhythm of atrial fibrillation. He is on amiodarone. His blood pressure was 1 20-1 30 in route by ambulance. EKG that was transmitted reveals wide-complex tachycardia with a rate of approxione 60 which may represent Pratibha's phenomenon versus V. tach. Per discussion with Dr. Kumar upon arrival will he has no history of V. tach. Patient has chronic swelling of his legs. Patient has chronic orthopnea. He is on oxygen at 3 L by nasal cannula continuously. History is limited due to decreased level of conscious due to poor perfusion. Prior similar symptoms: No Recent Illness/Hospitalization: No - Past Medical History (1) AICD (automatic cardioverter/defibrillator) present Status: Chronic Comment: Gen change per Dr. Matt 11/03/18 @ [facility] (2) Atrial fibrillation Status: Chronic (3) BPH (benign prostatic hypertrophy) Status: Chronic (4) COPD (chronic obstructive pulmonary disease) Status: Chronic Comment: mild. no chronic medications (5) Chronic anticoagulation Status: Chronic Comment: On warfarin (6) Chronic systolic (congestive) heart failure Status: Chronic (7) Diverticulosis Status: Chronic (8) Former smoker, stopped smoking in distant past Status: Chronic Comment: Quit in 1999 (9) Hyperlipemia Status: Chronic (10) Hypothyroidism Status: Chronic (11) Ischemic cardiomyopathy Status: Chronic Comment: EF 20% on 10/27/16 (12) Pacemaker Status: Chronic (13) Peripheral arterial occlusive disease Status: Chronic (14) Pulmonary hypertension Status: Chronic Past Medical History - Allergies and Home Meds Allergies/Adverse Reactions: Allergies No Known Allergies Allergy (Verified 08/07/20 10:21) Primary Care Physician: Tyrone Bhakta [Primary Care Provider] - Surgical History: angioplasty - With stent, 3 times, cataract, pacemaker implantation - AICD, - - Aortobifemoral grafting, left renal artery stent Lives: Alone Smoking Status: Current every day smoker Alcohol: None Drugs: None - Family History Maternal Family History: Family History (Last Reviewed 09/14/19 @ 10:24 by Zoraida Vences) Father CAD (coronary artery disease) Mother CAD (coronary artery disease) Brother CAD (coronary artery disease) Hypertension Sister CAD (coronary artery disease) Hypertension Family History: Reports: Heart Disease Paternal Family History: Family History (Last Reviewed 09/14/19 @ 10:24 by Zoraida Vences) Father CAD (coronary artery disease) Mother CAD (coronary artery disease) Brother CAD (coronary artery disease) Hypertension Sister CAD (coronary artery disease) Hypertension Family History: Reports: Heart Disease, Pulmonary Disease - Black lung Review of Systems General: Reports: Malaise. Denies: Chills, Fever Eyes: Denies: Visual changes - bilaterally, Blurred Vision - bilaterally ENT: Denies: Rhinorrhea, Sore throat Cardiovascular: Denies: Chest pain, Palpitations Respiratory: Reports: Dyspnea, Dyspnea on exertion, Orthopnea. Denies: Cough, Sputum, Paroxysmal nocturnal dyspnea Gastrointestinal: Denies: Abdominal pain, Nausea, Vomiting, Diarrhea Genitourinary: Denies: Dysuria, Hematuria Musculoskeletal: Reports: Swelling. Denies: Myalgias, Arthralgias, Extremity Pain Skin: Reports: Rash. Denies: Wounds Neurological: Reports: Weakness. Denies: Headache Endocrine: Denies: Polyuria, Polydipsia Hematologic: Reports: Easy bruising Allergy: Denies: Uticaria Physical Exam Vital Signs/Narrative: Vital Signs Temp Pulse Resp BP Pulse Ox 08/07/20 10:15 80 29 H 155/84 H 08/07/20 10:07 96.8 F L 154 H 28 H 107/76 100 Inital Vital Signs reviewed: Yes General: Well nourished, Well developed, - - Mild distress Head: Normocephalic, Atraumatic Eyes: Perrl, EOMI. Negative for: Pale conjunctiva, Scleral icterus ENT: No rhinorrhea, TM's clear Neck: Supple, Nontender, No lymphadenopathy, No JVD Cardiovascular: Regular rhythm, No murmurs, Tachycardia Respiratory: Rales - Right and left bases. Greater on the left.. Negative for: No distress, CTA bilaterally Abdomen: Soft, Nontender, Nondistended, No masses, Hypoactive bowel sounds. Negative for: Normal bowel sounds Back: Negative for: Nontender Extremities: Nontender, Edema - 2 mm pitting Skin: Normal color, Rash - Venous stasis dermatitis, - - Delayed capillary refill greater than 4 seconds Neurological: Oriented x3, Normal Strength, Normal Sensation. Negative for: Alert Psychological: Normal affect Diagnostic/Tx/Re-eval Chest X-Ray - ED: 1 View, Read by ED Physician, - - Dual-chamber pacemaker/defibrillator noted. Patient has cardiomegaly. There may be slight cephalization. Hilum is unremarkable. Osseous structures are unremarkable. X-ray was interpreted by me at 1055. Impressions Chest X-Ray 08/07/20 10:18 IMPRESSION: Moderate cardiomegaly. Electronically Signed: Tra Myrick MD at 11:00 EST , Service support , 08/07/20 10:18 Chest 1 View (Portable) [RAD] Stat Laboratory Results 08/07/20 08/07/20 08/07/20 09:50 09:50 09:50 WBC 8.3 RBC 4.67 Hgb 14.4 Hct 47.4 MCV 101.5 H MCH 30.8 MCHC 30.4 L RDW Std Deviation 51.8 H RDW Coeff of Bhavna 13.6 Plt Count 152 MPV 11.2 Immature Gran % (Auto) 0.800 Neut % (Auto) 78.6 H Lymph % (Auto) 12.7 L [place] % (Auto) 7.3 Eos % (Auto) 0.2 Baso % (Auto) 0.4 Absolute Neuts (auto) 6.5 Absolute Lymphs (auto) 1.05 Nucleated RBC % 0 Sodium 135 L Potassium 4.5 Chloride 95 L Carbon Dioxide 38.0 H Anion Gap 2 L BUN 59 H Creatinine 2.20 H Estim Creat Clear Calc 28.79 Est GFR (MDRD) Af Amer 38 L Est GFR (MDRD) Non-Af 32 L BUN/Creatinine Ratio 26.8 H Glucose 154 H Lactic Acid Calcium 9.8 Total Bilirubin 0.40 AST 18 ALT 19 Alkaline Phosphatase 41 L Troponin I 0.071 H B-Natriuretic Peptide 434.1 H Total Protein 7.9 Albumin 3.4 Globulin 4.5 H Albumin/Globulin Ratio 0.8 L 08/07/20 10:26 WBC RBC Hgb Hct MCV MCH MCHC RDW Std Deviation RDW Coeff of Bhavna Plt Count MPV Immature Gran % (Auto) Neut % (Auto) Lymph % (Auto) [place] % (Auto) Eos % (Auto) Baso % (Auto) Absolute Neuts (auto) Absolute Lymphs (auto) Nucleated RBC % Sodium Potassium Chloride Carbon Dioxide Anion Gap BUN Creatinine Estim Creat Clear Calc Est GFR (MDRD) Af Amer Est GFR (MDRD) Non-Af BUN/Creatinine Ratio Glucose Lactic Acid 1.3 Calcium Total Bilirubin AST ALT Alkaline Phosphatase Troponin I B-Natriuretic Peptide Total Protein Albumin Globulin Albumin/Globulin Ratio Troponin is elevated which may be due to chronic CHF and dysrhythmia. BNP is elevated. This may represent acute on chronic CHF due to his dysrhythmia and hemodynamic instability. - EKG Initial EKG Interpretation: - - Complex tachycardia which may represent V. tach versus Pratibha's phenomenon. Rate is 161. QRS duration 182 ms. QT duration 372 ms. Hume to the left. Follow-up EKG Interpretation: - - Atrial sensed ventricular paced rhythm with a rate of 80. PA interval is 278 ms. Cures duration 196 ms. QT duration 456 ms. Hume is to the left. - Medical Decision Making Since patient is tachypneic not alert with no palpable radial pulse poor perfusion, delayed capillary refill, patient was sedated using 10 mg of etomidate and successfully cardioverted 150 J biphasic mode. Initial rhythm was wide-complex which may represent V. tach versus Pratibha's phenomenon since he has a baseline rhythm of atrial fibrillation. Etomidate was given because of his hemodynamic instability. He did report having something to drink several hours ago. Consent was not obtained for sedation or cardioversion since he is not hemodynamically stable. Chest x-ray is obtained to confirm suspicion for congestive heart failure. EKG was obtained initially which revealed wide-complex tachycardia and may represent Pratibha's phenomenon versus V. tach. There is no paced rhythm noted. CBC was obtained to rule out anemia since he does appear pale. Comprehensive metabolic panel to assess renal function and electrolytes. Since he is on amiodarone amiodarone level was obtained. Patient will require admission. Case was discussed with Dr. Kumar. - Critical Care Time Critical care time (excluding procedures): 30-74 minutes - Included obtaining history, physical exam, care at the bedside, discussion with lumber grader regarding past history, review of prior records, discussion with hospitalist to facilitate admission to the hospital, Discussing w/Patient &/or Family/Labor Commissioner, Discussing w/Consultants, Arranging Admission or Transfer Procedures Procedure(s): Deep sedation using etomidate prior to cardioversion. This was emergent. Rhythm strip prior to cardioversion is wide-complex and may represent Pratibha's phenomenon versus V. tach. 2 minutes after administration of etomidate patient was appropriately sedated and was successfully cardioverted with 150 J synchronized mode. Patient now is in a paced rhythm with a ventricular rate of 80. Patient tolerated procedure well. Total time for sedation and procedure 5 minutes ED Disposition - Plan for ED Patient: Disposition: Acute Care Hospital [facility] Diagnosis: Wide-complex tachycardia, Hemodynamic instability, History of ischemic cardiomyopathy, Hypoxemic respiratory failure, chronic Referrals: Tyrone Bhakta [Primary Care Provider] -
[2020-08-07 10:24] LABS: Absolute Lymphocyte Count 1.05 X10^3/uL (0.83-4.51); Absolute Neutrophil Count 6.5 X10^3/uL (2.0-7.7); Basophil# 0.03 X10^3/uL; Basophil% 0.4 % (0-1); Eosinophil# 0.02 X10^3/uL; Eosinophils% 0.2 % (0-5); Hematocrit 47.4 % (40-54); Hemoglobin 14.4 g/dL (13.0-16.5); Lymphocyte # 1.05 X10^3/ul (4.0); Lymphocyte % 12.7 % (19-41); Mean Corp Hgb Conc 30.4 g/dL (32-36); Mean Corpuscular Hgb 30.8 pg (27.0-32.0); Mean Corpuscular Volume 101.5 fL (80-94); Mean Platelet Vol. 11.2 fl (6.2-12.0); Monocyte% 7.3 % (0-10); NRBC Flagged by Analyzer 0 % (0-5); Neutrophil # 6.49 X10^3/uL (2.7-7.7); Neutrophil % 78.6 % (47-70); Platelet Count 152 K/mm3 (150-450); RBC Distribution Width CV 13.6 % (11.6-14.6); RBC Distribution Width SD 51.8 fl (35.1-43.9); Red Blood Count 4.67 M/mm3 (4.6-6.2); White Blood Count 8.3 K/mm3 (4.4-11.0)
--- NOTE | 2020-08-07 10:37 | EKG12_ITS ---
Test Reason : TACHY Blood Pressure : / mmHG Vent. Rate : 161 BPM Atrial Rate : 166 BPM P-R Int : 000 ms QRS Dur : 182 ms QT Int : 372 ms P-R-T Axes : 000 -66 114 degrees QTc Int : 608 ms Wide QRS tachycardia Left axis deviation Left bundle branch block Abnormal ECG Confirmed by GAGE MESSINA, NIKOLAS ([id number]), sound editor MIKHAIL SANCHEZ ([id number]) on 08/12/2020 12:53:28 PM Referred By: ADAIR Confirmed By:NIKOLAS ALMONTE MD
[2020-08-07 10:41] LABS: ALB/GLOB Ratio 0.8 RATIO (0.9-2.4); AST(SGOT) 18 U/L (15-37); Alanine Aminotransfer ALT/SGPT 19 U/L (16-61); Albumin, Serum 3.4 g/dL (3.2-5.0); Alkaline Phosphatase 41 U/L (45-117); Anion Gap 2 (5-15); BUN 59 mg/dL (7-18); BUN/Creat Ratio 26.8 RATIO (10-20); Calcium,Total 9.8 mg/dL (8.5-10.1); Chloride 95 mmol/L (98-107); EST Glomerular Filtration Rate 32 mL/min (>60); Est Glom Filt Rate - Afr Amer 38 mL/min (>60); Estimated Creatinine Clearance 28.79 ml/min; Globulin 4.5 g/dL (2.2-4.2); Glucose 154 mg/dL (74-106); Potassium 4.5 mmol/L (3.5-5.1); Protein, Total 7.9 g/dL (6.4-8.2); Sodium Level 135 mmol/L (136-145)
[2020-08-07 10:43] LABS: BNP,B-Type NATRIURETIC PEPTIDE 434.1 pg/mL (0-100)
[2020-08-07 10:54] LABS: Lactic Acid 1.3 mmol/L (0.4-1.9)
--- NOTE | 2020-08-07 11:17 | NURSING ---
DR MINGO BORRERO
--- NOTE | 2020-08-07 11:21 | NURSING ---
PCU MINGO WIDE COMPLEX TACHYCARDIA, HEMODYNAMIC INSTABILITY, HX OF ISCHEMIC CARD
--- NOTE | 2020-08-07 11:45 | ED.RN ---
LEFT MESSAGE ON SON YANA PHONE REGARDING PT ADMISSION
--- NOTE | 2020-08-07 12:21 | PCS.PANDOC ---
PANDEMIC DOCUMENTATION INITIATED: Date: 08/07/20 Time: 5595
[2020-08-07 13:05] LABS: Magnesium 2.5 mg/dL (1.6-2.6)
--- NOTE | 2020-08-07 13:05 | ECHOD_ITS ---
Reason For Study: ARRHYTHMIA Procedure This was a 2D Doppler, Color Flow transthoracic echocardiogram. The study was technically difficult. Exam performed portable in patient room. Left Ventricle Severely dilated left ventricle. Severe segmental systolic dysfunction (see wall motion). The estimated ejection fraction is 15 %. There is evidence of diastolic dysfunction. Anterio-Basal: Hypokinetic. Lateral-Basal: Akinetic. Posterior-Basal: Akinetic. Infero-Basal: Akinetic. Basal inferoseptal: Hypokinetic. Basal anteroseptal: Hypokinetic. Mid-Anterior : Hypokinetic. Mid- Lateral : Akinetic. Mid-Posterior: Akinetic. Mid-Inferior: Akinetic. Mid-inferoseptal : Hypokinetic. Mid-anteroseptal : Hypokinetic. Anterior [place] : Akinetic. Inferior [place] : Akinetic. Lateral [place] : Akinetic. Septal [place] : Hypokinetic. Right Ventricle Normal RV size. ICD or pacer leads identified within the right ventricle. Normal systolic function. Atria The left atrium is severely enlarged. The right atrium is mildly enlarged. ICD or pacer leads identified within the right atrium. No doppler evidence for ASD. Mitral Valve There is no mitral annular calcification. Mild papillary muscle dysfunction of the mitral valve. Mild-Moderate (1-2+) mitral valve insufficiency. Tricuspid Valve Normal tricuspid valve. Mild tricuspid valve insufficiency. Right ventricular systolic pressure estimated to be 50 mmHg. Aortic Valve Trisinus/trileaflet aortic valve. Mild focal aortic valve calcification. Pulmonic Valve The pulmonic valve is not well visualized. Mild (1+) pulmonic valve insufficiency. Great Vessels Mildly dilated aortic root. Pericardium/Pleural Trivial pericardial effusion. There are no echocardiographic indications of cardiac tamponade. MMode/2D Measurements & Calculations LVIDd: 7.1 cm IVSd: 1.5 cm Ao root diam: 4.0 cm LVIDs: 6.7 cm LVPWd: 1.0 cm RVDd: 3.7 cm FS: 6.9 % LAV(MOD-bp): 87.9 ml LA A4 area: 28.7 cm2 LA dimension(2D): 5.7 cm LAV(MOD-bp) Indexed: 42.2 ml/m2 LAV(MOD-sp2): 75.5 ml LAV(MOD-sp4): 104.5 ml RA A4 area: 20.8 cm2 Doppler Measurements & Calculations MV E max cameron: 491.0 cm/sec Lat Peak E' Cameron: 6.6 cm/sec Med Peak E' Cameron: 2.6 cm/sec E/E' lat: 73.9 E/E' med: 190.2 TR max cameron: 322.0 cm/sec TR max P.6 mmHg Interpretation Summary The study was technically difficult. Severely dilated left ventricle. Severe segmental systolic dysfunction (see wall motion). The estimated ejection fraction is 15 %. The left atrium is severely enlarged. The right atrium is mildly enlarged. Mild papillary muscle dysfunction of the mitral valve. Mild-Moderate (1-2+) mitral valve insufficiency. Mild tricuspid valve insufficiency. Mild focal aortic valve calcification. Mild (1+) pulmonic valve insufficiency. Mildly dilated aortic root. Trivial pericardial effusion. There are no echocardiographic indications of cardiac tamponade. Right ventricular systolic pressure estimated to be 50 mmHg. There is evidence of diastolic dysfunction. Ordering Physician: Eros Kumar Referring Physician: ANKUSH DEAN Performed By: Brandi Harkins, KIARA, RVT
[2020-08-07] MEDS: Isosorbide DN 10 MG Tablet 5 MG PO ×2 (13:32→21:16)
[2020-08-07] MEDS: Ferrous Sulfate 325 MG Tablet PO ×3 (13:32→21:16)
--- NOTE | 2020-08-07 13:54 | CON.PCM_ITS ---
Problem List (1) Wide-complex tachycardia Status: Acute (2) Hemodynamic instability Status: Acute (3) CAD (coronary artery disease) Status: Chronic Qualifiers: Coronary Disease-Associated Artery/Lesion type: grindstone artery [place] vs. transplanted heart: grindstone heart (4) Stented coronary artery Status: Chronic Comment: 11/29/2007: 3.5 X 13 Cypher Sirolimus IRASEMA to proximal LAD, 3.0 X 18 Cyper Sirolimus IRASEMA to proximal CX per Dr. Ruiz @ [facility]; 03/12/2009: Chronic 100% stenosis of proximal RCA with moderate collaterals from LAD. Previous stents patent per Dr. Byrd @ [facility]. 12/27/2013:85% in-stent restenosis of proximal LCX. Flextome cutting baloon and Promus Element Plus RX IRASEMA 3.0 X [address] Mcgregor @ [facility] [place]. (5) Ischemic cardiomyopathy Status: Chronic Comment: EF 20% on 10/27/16 (6) Chronic systolic (congestive) heart failure Status: Chronic (7) Atrial fibrillation Status: Chronic Qualifiers: Atrial fibrillation type: chronic (8) Ventricular tachycardia Status: Chronic (9) AICD (automatic cardioverter/defibrillator) present Status: Chronic Comment: Gen change per Dr. Matt 11/03/18 @ [facility] (10) Hyperlipemia Status: Chronic Qualifiers: Hyperlipidemia type: pure hypercholesterolemia Qualified Code(s): E78.00 - Pure hypercholesterolemia, unspecified; E78.0 - Pure hypercholesterolemia (11) Hypertension Status: Chronic Qualifiers: Hypertension type: essential hypertension Qualified Code(s): I10 - Essential (primary) hypertension (12) Status post aortobifemoral bypass surgery Status: Chronic Comment: Per Dr. Rm Bermudez @ [facility] [place]: using 16 X 8 hemashield graft (13) History of stent insertion of renal artery Status: Chronic (14) COPD (chronic obstructive pulmonary disease) Status: Chronic Comment: mild. no chronic medications (15) Renal insufficiency Status: Chronic (16) detention (current) use of anticoagulants Status: Chronic Reason for Consult Date of Consultation: 08/07/20 History of Present Illness: The patient is a 69 year old white male with a past cardiovascular history has included underlying CAD, PCI, ischemic mediated cardiomyopathy, chronic systolic CHF, atrial fibrillation, status post ICD placement, hyperlipidemia, hypertension, PAD with a report of aortobifemoral bypass and renal artery stenosis status post PCI, superimposed upon COPD and chronic renal insufficiency who presented for concerns of shortness of breath/dyspnea, diaphoresis, near syncope, and findings of wide-complex tachycardia with a report by the [facility] emergency department staff of hemodynamic instability requiring subsequent synchronized biphasic DC cardioversion to regain an underlying electronic ventricular paced rhythm. The patient states he believes he is doing well until this morning. This morning he states he felt more short of breath and dyspneic, felt somewhat diaphoretic/clammy, and felt as if he might lose consciousness but did not. He does not recall any chest discomfort. He states he usually sleeps somewhat propped up. He does not recall any ongoing peripheral pitting edema. He does not recall his ICD discharging. Based upon his feelings he presented to the [facility] emergency department. By EMS he was noted to have an ECG with wide-complex tachycardia. This was confirmed by the [facility] emergency department. Based upon concerns of hemodynamic instability he subsequently underwent synchronized biphasic DC cardioversion with 150 J x 1. He returned to a baseline electronic ventricular paced rhythm. He was subsequently placed in the PCU for further evaluation and care. He has had laboratory studies performed. His troponin I levels have been abnormal indeterminant. He is noted to have evidence of chronic renal insufficiency. His subsequent post synchronized biphasic DC cardioversion demonstrated the appearance of an electronic ventricular paced rhythm. His chest x-ray was performed and is as noted below. An ICD interrogation is pending. Past Medical History Allergies/Adverse Reactions: Allergies No Known Allergies Allergy (Verified 08/07/20 10:21) Home Medications: Ambulatory Orders Medication Instructions Recorded Albuterol IH (ProAir) [Proair Hfa] 1 - 2 puff INHALATION Q4H PRN PRN 12/01/17 Aspirin E.C. [Ecotrin] 81 mg PO DAILY@0800 12/01/17 Budesonide/Formoterol 160/4.5 2 puff INHALATION BID 12/01/17 [Symbicort 160/4.5 Mcg Inhaler (SP)] Levothyroxine Sodium 112 mcg PO DAILY 12/01/17 Tamsulosin HCl [Flomax] 0.4 mg PO DAILY 12/01/17 Tiotropium [place] [Spiriva 2 puff INHALATION DAILY 12/01/17 Respimat] Ferrous Sulfate 325 mg PO TIDCM #1 tab 05/19/18 calcitriol 0.25 mcg capsule 0.25 mcg PO DAILY cap 08/11/18 hydralazine 25 mg tablet 25 mg PO BID #60 tab 09/14/19 potassium chloride 10 mEq 10 meq PO DAILY tab 09/14/19 tablet,extended release(part/cryst) ezetimibe 10 mg tablet 10 mg PO QHS #90 tab 10/11/19 fenofibrate nanocrystallized 145 145 mg PO QHS #90 tab 10/11/19 mg tablet rosuvastatin 40 mg tablet 40 mg PO QHS #90 tab 10/11/19 furosemide 20 mg tablet 60 mg PO BID #180 tab 10/12/19 isosorbide dinitrate 5 mg tablet 5 mg PO TID #270 tab 10/24/19 amiodarone 200 mg tablet 200 mg PO DAILY #90 tab 10/25/19 spironolactone 25 mg tablet 25 mg PO DAILY #90 tab 12/29/19 carvedilol 25 mg tablet 25 mg PO BID #180 tab 05/10/20 rivaroxaban 20 mg tablet 20 mg PO DAILY #30 tab 05/13/20 Past Medical History (Chronic Problems): Chronic Problems (Last Reviewed 08/07/20 @ 15:[address] Simeon Kwong, DO) History of ischemic cardiomyopathy (Chronic) Hypoxemic respiratory failure, chronic (Chronic) CAD (coronary artery disease) (Chronic) Renal insufficiency (Chronic) Ventricular tachycardia (Chronic) History of stent insertion of renal artery (Chronic 03/14/08) Stented coronary artery (Chronic 12/27/13) 11/29/2007: 3.5 X 13 Cypher Sirolimus IARSEMA to proximal LAD, 3.0 X 18 Cyper Sirolimus IRASEMA to proximal CX per Dr. Ruiz @ [facility]; 03/12/2009: Chronic 100% stenosis of proximal RCA with moderate collaterals from LAD. Previous stents patent per Dr. Byrd @ [facility]. 12/27/2013:85% in-stent restenosis of proximal LCX. Flextome cutting baloon and Promus Element Plus RX IRASEMA 3.0 X [address] Mcgregor @ [facility] [place]. Status post aortobifemoral bypass surgery (Chronic 04/25/01) Per Dr. 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 no chronic medications Hypertension (Chronic) Urine retention (Chronic) BPH (benign prostatic hypertrophy) (Chronic) Hypothyroidism (Chronic) Former smoker, stopped smoking in distant past (Chronic) Quit in 1999 AICD (automatic cardioverter/defibrillator) present (Chronic) Gen change per Dr. Matt 11/03/18 @ [facility] Pacemaker (Chronic) Diverticulosis (Chronic) Left renal artery stenosis (Chronic) Stent done in February Surgical History: angioplasty - With stent, 3 times, cataract, pacemaker implantation - AICD, - - Aortobifemoral grafting, left renal artery stent Psychiatric History: No pertinent psych hx - *Family History Maternal Family History: Family History (Last Reviewed 08/07/20 @ 15:[address] Simeon Kwong DO) Father CAD (coronary artery disease) Mother CAD (coronary artery disease) Brother CAD (coronary artery disease) Hypertension Sister CAD (coronary artery disease) Hypertension History Items: Heart Disease Paternal Family History: Family History (Last Reviewed 08/07/20 @ 15:[address] Simeon Kwong DO) Father CAD (coronary artery disease) Mother CAD (coronary artery disease) Brother CAD (coronary artery disease) Hypertension Sister CAD (coronary artery disease) Hypertension History Items: Heart Disease, Pulmonary Disease - Black lung Lives: Alone Smoking Status: Former smoker Alcohol: None Drugs: None Review of Systems - Review of Systems General: Denies: Fever, Night Sweats, Fatigue Cardiovascular: Reports: Shortness of Breath, Near Syncope, - - Diaphoresis. Denies: Chest Discomfort, Orthopnea, PND, Peripheral Edema, Palpitations, Lightheadedness, Dizziness, Syncope Respiratory: Reports: Shortness of Breath. Denies: Cough, Sputum Production, Hemoptysis Gastrointestinal: Denies: Hematemesis, Hematochezia, Melena Genitourinary: Denies: Dysuria, Hematuria Skin: Denies: Rash Subjectve: This is a 69-year-old white male who appears to be resting comfortably at the moment in no acute distress. Objective: Vital Signs Temp Pulse Resp BP Pulse Ox 98.3 F 60 18 145/60 H 97 08/07/20 12:20 08/07/20 12:20 08/07/20 12:20 08/07/20 12:20 08/07/20 12:20 Oxygen Flow Rate (L/min) 2 Oxygen Delivery Method Nasal Cannula Weight: 214 lb 11.684 oz Body Mass Index (BMI) 33.6 General: Awake, Alert, Oriented x 3, Cooperative, No Acute Distress HEENT: Atraumatic, Normocephalic, PERRL, EOMI, Sclera Non Icteric Neck: Supple, Good ROM, No JVD Chest Wall: Left Pectoral Incision Lungs: Clear to auscultation Cardiovascular: Regular Rhythm, Normal S1, Normal S2 Vascular: No Carotid Bruits Abdomen: Bowel Sounds Present, Soft Extremities: No edema Neurological: No Focal Motor or Sensory Deficit Psych/Mental Status: Appropriate 08/07/20 09:50: WBC 8.3, RBC 4.67, Hgb 14.4, Hct 47.4, MCV 101.5 H, MCH 30.8, MCHC 30.4 L, Plt Count 152, MPV 11.2, Immature Gran % (Auto) 0.800, Neut % (Auto) 78.6 H, Lymph % (Auto) 12.7 L, [place] % (Auto) 7.3, Eos % (Auto) 0.2, Baso % (Auto) 0.4, Absolute Neuts (auto) 6.5, Nucleated RBC % 0 08/07/20 09:50: Sodium 135 L, Potassium 4.5, Chloride 95 L, Carbon Dioxide 38.0 H, Anion Gap 2 L, BUN 59 H, Creatinine 2.20 H, Est GFR (MDRD) Af Amer 38 L, Est GFR (MDRD) Non-Af 32 L, BUN/Creatinine Ratio 26.8 H, Glucose 154 H, Calcium 9.8, Total Bilirubin 0.40, Troponin I 0.071 H 08/07/20 09:50: B-Natriuretic Peptide 434.1 H 08/07/20 09:50: Magnesium 2.5 08/07/20 10:26: Lactic Acid 1.3 08/07/20 13:10: Troponin I 0.125 H Rhythm: Electronic ventricular paced rhythm EKG: As noted above ECHO: 08/07/2020 Interpretation Summary The study was technically difficult. Severely dilated left ventricle. Severe segmental systolic dysfunction (see wall motion). The estimated ejection fraction is 15 %. The left atrium is severely enlarged. The right atrium is mildly enlarged. Mild papillary muscle dysfunction of the mitral valve. Mild-Moderate (1-2+) mitral valve insufficiency. Mild tricuspid valve insufficiency. Mild focal aortic valve calcification. Mild (1+) pulmonic valve insufficiency. Mildly dilated aortic root. Trivial pericardial effusion. There are no echocardiographic indications of cardiac tamponade. Right ventricular systolic pressure estimated to be 50 mmHg. There is evidence of diastolic dysfunction. Stress Test: DATE OF SERVICE: 04/02/2016 EXERCISE TOLERANCE TEST: The patient underwent pharmacologic (regadenoson) evaluation with a peak heart rate of 111 beats per minute (72% predicted maximum heart rate) and a peak blood pressure of 134/82 mmHg. The baseline ECG demonstrated atrial fibrillation with nonspecific ST and T-wave abnormality and intermittent electronic ventricular paced rhythm. The peak pharmacologic ECG was considered indeterminate secondary to underlying electronic ventricular paced rhythm. The cardiac rhythm remained atrial fibrillation with intermittent electronic ventricular paced rhythm. There was no report of chest discomfort during pharmacologic infusion or recovery. The examination was discontinued secondary to completion of protocol. IMPRESSION: 1. Pharmacologic (regadenoson) evaluation. 2. Peak pharmacologic ECG considered indeterminate secondary to underlying electronic ventricular paced rhythm. 3. Nuclear images pending. MYOCARDIAL PERFUSION IMAGING STUDY: TECHNIQUE: The patient was injected with 14.4 mCi of Tc99m Cardiolite and subsequently rest SPECT Cardiolite nuclear imaging was obtained in the horizontal long, vertical long and short axes views. The patient underwent pharmacologic (regadenoson) evaluation with a peak heart rate of 111 beats per minute (72% predicted maximum heart rate) and a peak blood pressure of 134/82 mmHg. The patient was injected with 43.8 mCi of Tc99m Cardiolite and subsequently stress SPECT Cardiolite nuclear imaging was obtained in the horizontal long, vertical long and short axes views. A gated Cardiolite study at peak stress was not obtained. INTERPRETATION: Rest and stress SPECT Cardiolite nuclear imaging, status post realignment, normalization and attenuation correction, demonstrates areas of diminished to absence of tracer uptake in portions of the basal inferoseptal, basal inferior and basal inferolateral segments extending through the mid to distal, inferior and inferolateral segments, in feroapical and lateral apical segments without significant change. There was also notation post-stress of an area of diminished tracer uptake in portions of the basal anterolateral segments as well as the mid inferior septal segments. There are similar type changes on the resting and stress polar map images. A gated Cardiolite study at peak stress was not obtained. The aforementioned findings appear compatible with an area of previous extensive myocardial injury/infarction involving areas of the inferior and inferolateral segments as well as findings potentially compatible with mild periinfarct related myocardial ischemia in an area of the basal anterolateral as well as the mid inferoseptal segments. IMPRESSION: Rest and stress SPECT Cardiolite nuclear imaging demonstrate myocardial p erfusion changes compatible with an area of an extensive myocardial injury/infarction involving the inferior and inferolateral segments as well as post stress changes appearing compatible with mild periinfarct related myocardial ischemia in the basal anterolateral as well as the mid inferoseptal segments. Cardiac Cath: 06/27/2016 CONCLUSIONS: 1. Widely patent LAD and left circumflex stents. 2. Chronically occluded right coronary artery. 3. Severe LV dysfunction with an EF of 15-20% with regional wall motion abnormalities as described. 4. Moderately elevated LVEDP. 5. Normal adequately controlled systemic pressures. CXR: FINDINGS: The lungs are clear and expanded. There is no demonstrated pleural abnormality. There is moderate cardiac enlargement. A left-sided dual-chamber pacemaker is seen. Normal mediastinum and lee. Normal visualized pulmonary arteries. There is atherosclerotic calcification of the aortic arch with tortuosity. There are diffuse degenerative changes of the visualized thoracic spine. Normal visualized ribs, clavicles, and shoulders. There is no demonstrated abnormality of the visualized soft tissue structures of the upper abdomen. RAD/Chest 1 View (Portable) IMPRESSION: Moderate cardiomegaly. Electronically Signed: Tra Myrick MD at 11:00 EST Assessment/Plan 1. Wide-complex tachycardia The patient presented with an episode of wide-complex tachycardia. He was deemed hemodynamically unstable. He underwent synchronized biphasic DC cardioversion. He has subsequently had ICD interrogation. Based upon the ICD interrogation the report states it appeared his underlying rhythm was in atrial flutter with subsequent conversion status post a synchronized biphasic DC cardioversion. The ICD interrogation also notes that he has had episodes on 08-02-2019 that appeared compatible with ventricular tachycardia with ATP P pacing x2 converting to underlying atrial fibrillation. It also notes he has had VT in the past with appropriate ICD shocks. The present time the patient is being monitored. He will continue follow-up of his cardiac enzymes. He is already undergone evaluation with a transthoracic echocardiogram with the results as noted. He will continue medical therapy. This may include an increase in his am iodarone therapy in attempt to assist with his underlying atrial and ventricular dysrhythmias. He may need to be considered for further noninvasive or invasive evaluation of his underlying CAD status. Also he may need to be considered for future EP consultation as to whether or not he is a candidate for any other form of ablative therapy of his atrial dysrhythmia or potentially his AV node. 2. Hemodynamic instability The patient was reported as being hemodynamically unstable with his wide-complex dysrhythmia. He underwent synchronized biphasic DC cardioversion in the emergency department. He had return to his underlying rhythm with improvement in his hemodynamics. 3. CAD status post PCI The patient has been evaluated noninvasively and invasively in the past. He has continued medical therapy. Again based upon this recent event, his subsequent findings, etc. he may need to be considered for repeat noninvasive and/or invasive evaluation of his coronary status. 4. Ischemic mediated cardiomyopathy He does have an ischemic mediated cardiomyopathy. His overall LV systolic function/LVEF appears similar to previous studies. He will need to continue medical management. He will continue evaluation based upon this event as deemed appropriate. 5. Chronic systolic mediated CHF At the moment the patient does not appear to have acute on chronic systolic mediated symptoms. He will need to continue his medical therapy. His overall LVEF remains low. 6. Atrial fibrillation The patient has remained in atrial fibrillation. He will need continued rate control therapy and anticoagulant therapy. Again depending upon his clinical course he may need consideration for repeat EP input regarding his atrial dysrhythmias. 7. Ventricular tachycardia It appears the patient has also had episodes of ventricular tachycardia which was required ATP pacing or defibrillations. He will need continued medical management. He may need additional noninvasive or invasive evaluation. 8. ICD The patient does have an ICD in place. It was interrogated today. It does appear to be functioning appropriately. 9. Hyperlipidemia He will continue risk factor evaluation and care as deemed appropriate. 10. Hypertension His blood pressure will be followed with adjustment of his medications as deemed appropriate taken into consideration his renal insufficiency. 11. PAD He has a history of PAD as previously noted including lower extremity revascularization and renal artery PCI. This would have to be taken into consideration if he requires further invasive evaluation and care. 12. COPD The patient reportedly has a history of COPD. He will need continued medical therapy by his primary care physicians, etc. 13. Chronic renal insufficiency He has a history of chronic renal insufficiency. Again this has to be taken into consideration with respect to any invasive procedures requiring IV contrast agents because of the concern of IV contrast mediated nephropathy. 14. Chronic anticoagulation The patient is chronically anticoagulated. Again is to have to be taken into consideration with respect to further evaluation and care if he requires invasive procedures. Comment: The patient's case has been discussed and reviewed with patient and previously with Dr. Shepherd at the [facility] emergency department staff. This note was generated using a voice recognition system and there may be incorrect words, spelling or punctuation that were not noted when reviewing the office note prior to saving. Procedure Criteria Procedure Type: Elective COVID Risk Discussion: The surgeon/proceduralist and patient have discussed in detail the risk of exposure to and/or potential harm posed by the COVID-19 virus with having a surgery/procedure at this time versus the risk of delaying the surgery/procedure. It is not possible to know either the risk of delaying the surgery or procedure or chance of getting an infection with perfect accuracy, but a joint decision was made between the patient and the surgeon/proceduralist to proceed at this time with the scheduled surgery/procedure as indicated on the consent form.
--- NOTE | 2020-08-07 15:04 | PCM.HP.STD ---
Problem List (1) Wide-complex tachycardia Status: Acute (2) Hemodynamic instability Status: Acute (3) History of ischemic cardiomyopathy Status: Chronic (4) Hypoxemic respiratory failure, chronic Status: Chronic (5) CAD (coronary artery disease) Status: Chronic Qualifiers: Coronary Disease-Associated Artery/Lesion type: [place] artery [place] vs. transplanted heart: [place] heart (6) Renal insufficiency Status: Chronic (7) History of stent insertion of renal artery Status: Chronic (8) Stented coronary artery Status: Chronic Comment: 11/29/2007: 3.5 X 13 Cypher Sirolimus IRASEMA to proximal LAD, 3.0 X 18 Cyper Sirolimus IRASEMA to proximal CX per Dr. uRiz @ [facility]; 03/12/2009: Chronic 100% stenosis of proximal RCA with moderate collaterals from LAD. Previous stents patent per Dr. Byrd @ [facility]. 12/27/2013:85% in-stent restenosis of proximal LCX. Flextome cutting baloon and Promus Element Plus RX IRASEMA 3.0 X [address] Mcgregor @ [facility]. (9) Status post aortobifemoral bypass surgery Status: Chronic Comment: Per Dr. Rm Bermudez @ [facility]: using 16 X 8 hemashield graft (10) Atherosclerotic heart disease of [place] coronary artery without angina pectoris Status: Chronic Qualifiers: [place] vs. transplanted heart: [place] heart Qualified Code(s): I25.10 - Atherosclerotic heart disease of [place] coronary artery without angina pectoris (11) Chronic systolic (congestive) heart failure Status: Chronic (12) MCC (current) use of anticoagulants Status: Chronic (13) History of stent insertion of renal artery Status: Chronic (14) Anemia Status: Chronic (15) Bilateral atelectasis Status: Chronic (16) Respiratory failure with hypoxia and hypercapnia Status: Chronic (17) Peripheral arterial occlusive disease Status: Chronic (18) Pleural effusion Status: Chronic (19) Ischemic cardiomyopathy Status: Chronic Comment: EF 20% on 10/27/16 (20) Chronic anticoagulation Status: Chronic Comment: On warfarin (21) Pulmonary hypertension Status: Chronic (22) Atrial fibrillation Status: Chronic Qualifiers: Atrial fibrillation type: chronic (23) Hyperlipemia Status: Chronic Qualifiers: Hyperlipidemia type: pure hypercholesterolemia Qualified Code(s): E78.00 - Pure hypercholesterolemia, unspecified; E78.0 - Pure hypercholesterolemia (24) COPD (chronic obstructive pulmonary disease) Status: Chronic Comment: mild. no chronic medications (25) Hypertension Status: Chronic Qualifiers: Hypertension type: essential hypertension Qualified Code(s): I10 - Essential (primary) hypertension (26) Urine retention Status: Chronic (27) BPH (benign prostatic hypertrophy) Status: Chronic (28) Hypothyroidism Status: Chronic (29) Former smoker, stopped smoking in distant past Status: Chronic Comment: Quit in 1999 (30) AICD (automatic cardioverter/defibrillator) present Status: Chronic Comment: Gen change per Dr. Matt 11/03/18 @ [facility] (31) Pacemaker Status: Chronic (32) Diverticulosis Status: Chronic (33) Left renal artery stenosis Status: Chronic Comment: Stent done in February History of Present Illness Date of Admission: 08/07/20 Chief Complaint: shortness of breath. The patient is a 69 year old M with short of breath on Wednesday resolved on its own. Again felt short of breath but was worse. Presented to the emergency room where he was found to be in a wide-complex tachycardia. Patient was tachypneic with nonpalpable pulse. Patient received 10 mg of etomidate and then was cardioverted with 150J. Patient was converted to paced rhythm. Patient currently feels short of breath post cardioversion but denies any palpitations nor any chest pain. [] Past Medical History Past Medical History (Chronic Problems): Chronic Problems (Last Reviewed 09/14/19 @ 10:24 by Zoraida Vences) History of ischemic cardiomyopathy (Chronic) Hypoxemic respiratory failure, chronic (Chronic) CAD (coronary artery disease) (Chronic) Renal insufficiency (Chronic) History of stent insertion of renal artery (Chronic 03/14/08) Stented coronary artery (Chronic 12/27/13) 11/29/2007: 3.5 X 13 Cypher Sirolimus IRASEMA to proximal LAD, 3.0 X 18 Cyper Sirolimus IRASEMA to proximal CX per Dr. Ruiz @ [facility]; 03/12/2009: Chronic 100% stenosis of proximal RCA with moderate collaterals from LAD. Previous stents patent per Dr. Byrd @ [facility]. 12/27/2013:85% in-stent restenosis of proximal LCX. Flextome cutting baloon and Promus Element Plus RX IRASEMA 3.0 X [address] Mcgregor @ [facility]. Status post aortobifemoral bypass surgery (Chronic 04/25/01) Per Dr. Rm Bermudez @ [facility]: using 16 X 8 hemashield graft Atherosclerotic heart disease of [place] coronary artery without angina pectoris (Chronic) Chronic systolic (congestive) heart failure (Chronic) MCC (current) use of anticoagulants (Chronic) History of stent insertion of renal artery (Chronic) Anemia (Chronic) Bilateral atelectasis (Chronic) Respiratory failure with hypoxia and hypercapnia (Chronic) Peripheral arterial occlusive disease (Chronic) Pleural effusion (Chronic) Ischemic cardiomyopathy (Chronic) EF 20% on 10/27/16 Chronic anticoagulation (Chronic) On warfarin Pulmonary hypertension (Chronic) Atrial fibrillation (Chronic) Hyperlipemia (Chronic) COPD (chronic obstructive pulmonary disease) (Chronic) mild. no chronic medications Hypertension (Chronic) Urine retention (Chronic) BPH (benign prostatic hypertrophy) (Chronic) Hypothyroidism (Chronic) Former smoker, stopped smoking in distant past (Chronic) Quit in 1999 AICD (automatic cardioverter/defibrillator) present (Chronic) Gen change per Dr. Matt 11/03/18 @ [facility] Pacemaker (Chronic) Diverticulosis (Chronic) Left renal artery stenosis (Chronic) Stent done in February Medical History: Medical History (Last Reviewed 08/07/20 @ 15:[address] Simeon Kwong, DO) Atherosclerotic heart disease of [place] coronary artery without angina pectoris (Chronic) I25.10 Chronic systolic (congestive) heart failure (Chronic) I50.22 MCC (current) use of anticoagulants (Chronic) Z79.01 History of stent insertion of renal artery (Chronic) Z98.890 Anemia (Chronic) D64.9 Bilateral atelectasis (Chronic) J98.11 Respiratory failure with hypoxia and hypercapnia (Chronic) J96.91, J96.92 Peripheral arterial occlusive disease (Chronic) I77.9 Pleural effusion (Chronic) J90 Ischemic cardiomyopathy (Chronic) I25.5 EF 20% on 10/27/16 Chronic anticoagulation (Chronic) Z79.01 On warfarin Pulmonary hypertension (Chronic) I27.2 Atrial fibrillation (Chronic) I48.91 Hyperlipemia (Chronic) E78.5 COPD (chronic obstructive pulmonary disease) (Chronic) J44.9 mild. no chronic medications Hypertension (Chronic) I10 Urine retention (Chronic) R33.9 BPH (benign prostatic hypertrophy) (Chronic) N40.0 Hypothyroidism (Chronic) E03.9 Former smoker, stopped smoking in distant past (Chronic) Z87.891 Quit in 1999 Pacemaker (Chronic) Z95.0 Diverticulosis (Chronic) K57.90 Left renal artery stenosis (Chronic) I70.1 Stent done in February Acute kidney injury on CKD stage III (Resolved) Acute kidney injury superimposed on chronic kidney disease (Resolved) N17.9, N18.9 Acute on chronic combined severe HF (Resolved) Acute on chronic respiratory failure with hypoxia and hypercapnia (Resolved) J96.21, J96.22 Acute systolic congestive heart failure (Resolved) I50.21 Anasarca (Resolved) R60.1 Warfarin-induced coagulopathy (Resolved) D68.32, T45.515A Allergies No Known Allergies Allergy (Verified 08/07/20 10:21) Home Medications: Ambulatory Orders Medication Instructions Recorded Albuterol IH (ProAir) [Proair Hfa] 1 - 2 puff INHALATION Q4H PRN PRN 12/01/17 Aspirin E.C. [Ecotrin] 81 mg PO DAILY@0800 12/01/17 Budesonide/Formoterol 160/4.5 2 puff INHALATION BID 12/01/17 [Symbicort 160/4.5 Mcg Inhaler (SP)] Levothyroxine Sodium 112 mcg PO DAILY 12/01/17 Tamsulosin HCl [Flomax] 0.4 mg PO DAILY 12/01/17 Tiotropium [place] [Spiriva 2 puff INHALATION DAILY 12/01/17 Respimat] Ferrous Sulfate 325 mg PO TIDCM #1 tab 12/04/17 calcitriol 0.25 mcg capsule 0.25 mcg PO DAILY cap 08/11/18 hydralazine 25 mg tablet 25 mg PO BID #60 tab 09/14/19 potassium chloride 10 mEq 10 meq PO DAILY tab 09/14/19 tablet,extended release(part/cryst) ezetimibe 10 mg tablet 10 mg PO QHS #90 tab 10/11/19 fenofibrate nanocrystallized 145 145 mg PO QHS #90 tab 10/11/19 mg tablet rosuvastatin 40 mg tablet 40 mg PO QHS #90 tab 10/11/19 furosemide 20 mg tablet 60 mg PO BID #180 tab 10/12/19 isosorbide dinitrate 5 mg tablet 5 mg PO TID #270 tab 04/07/20 amiodarone 200 mg tablet 200 mg PO DAILY #90 tab 10/25/19 spironolactone 25 mg tablet 25 mg PO DAILY #90 tab 12/29/19 carvedilol 25 mg tablet 25 mg PO BID #180 tab 05/10/20 rivaroxaban 20 mg tablet 20 mg PO DAILY #30 tab 05/13/20 Surgical History: Surgical History (Last Reviewed 08/07/20 @ 15:[address] Simeon Kwong DO) History of stent insertion of renal artery (Chronic) Onset Date: 03/14/08 Z98.890 Stented coronary artery (Chronic) Onset Date: 12/27/13 Z95.5 11/29/2007: 3.5 X 13 Cypher Sirolimus IRASEMA to proximal LAD, 3.0 X 18 Cyper Sirolimus IRASEMA to proximal CX per Dr. Ruiz @ [facility]; 03/12/2009: Chronic 100% stenosis of proximal RCA with moderate collaterals from LAD. Previous stents patent per Dr. Byrd @ [facility]. 12/27/2013:85% in-stent restenosis of proximal LCX. Flextome cutting baloon and Promus Element Plus RX IRASEMA 3.0 X [address] Mcgregor @ [facility]. Status post aortobifemoral bypass surgery (Chronic) Onset Date: 04/25/[address] Rm Bermudez @ [facility]: using 16 X 8 hemashield graft AICD (automatic cardioverter/defibrillator) present (Chronic) Z95.[address] Matt 11/03/18 @ [facility] Surgical History: angioplasty - With stent, 3 times, cataract, pacemaker implantation - AICD, - - Aortobifemoral grafting, left renal artery stent Psychiatric History: No pertinent psych hx Lives: Alone Smoking Status: Former smoker Alcohol: None Drugs: None - *Family History Maternal Family History: Family History (Last Reviewed 08/07/20 @ 15:[address] Simeon Kwong DO) Father CAD (coronary artery disease) Mother CAD (coronary artery disease) Brother CAD (coronary artery disease) Hypertension Sister CAD (coronary artery disease) Hypertension History Items: Heart Disease Paternal Family History: Family History (Last Reviewed 08/07/20 @ 15:[address] Simeon Kwong, DO) Father CAD (coronary artery disease) Mother CAD (coronary artery disease) Brother CAD (coronary artery disease) Hypertension Sister CAD (coronary artery disease) Hypertension History Items: Heart Disease, Pulmonary Disease - Black lung Review of Systems Constitutional: Reports: - - Did have diaphoresis with this.. Denies: Chills, Fever, Weight Change Eyes: Denies: Blurred vision, Double vision HEENT: Denies: Head Aches, Sinus Congestion, Sinus Drainage Cardiovascular: Denies: Chest Pain, Edema, Palpitations Respiratory: Reports: Shortness of Breath. Denies: Cough Gastrointestinal: Denies: Abdominal Pain, Nausea, Vomiting Genitourinary: Denies: Dysuria Musculoskeletal: Denies: Joint Pain, Joint Tenderness Skin: Denies: Rash, Wounds Neurological: Denies: Numbness, Tingling, Focal weakness Psychiatric: Denies: Anxiety, Depression Hematologic/ Lymphatic: Denies: Easy Bruising, Easy Bleeding, Hx of blood clot Comment: All review of systems were negative except as mentioned above in the history of present illness and the other review of systems. VTE Information - Inpt Only VTE Present on Admission: No VTE Mechan Device Prophylaxis: SCD's VTE Pharm Prophylaxis ordered?: No Reason prophylaxis not ordered:: Treatment Not Indicated Patient Problems: Active and Suspected Problems (Last Reviewed 09/14/19 @ 10:24 by Zoraida Vences) Wide-complex tachycardia (Acute) Hemodynamic instability (Acute) - Physical Exam Vitals/I&O's: Vital Signs Temp Pulse Resp BP Pulse Ox 36.8 C 60 18 145/60 H 97 08/07/20 12:20 08/07/20 12:20 08/07/20 12:20 08/07/20 12:20 08/07/20 12:20 Oxygen Flow Rate (L/min) 2 Oxygen Delivery Method Nasal Cannula Weight: 97.4 kg Body Mass Index (BMI) 33.6 General: Alert, Cooperative, No apparent distress HEENT: Atraumatic, Normocephalic Oral: Moist Mucosa, No Gingival or Mucosal Lesions/ Ulcerations Neck: No Nodes, Thyroid Normal Size and Texture Lungs: Clear to auscultation, Normal air movement, No rhonchi, No wheeze Cardiovascular: Regular rate, Regular Rhythm, Normal S1, Normal S2, No murmurs Abdomen: Bowel Sounds Present, Soft, Non Tender, Non-Distended, No Hepato-splenomegaly Extremities: No edema, No Calf Tenderness Skin: No rashes, No breakdown Musculoskeletal: No Tenderness to Palpation of Joints or Extremities, No Muscle Wasting Lymphatic: No Cervical, Supraclavicular, or Inguinal Adenopathy, Cervical Adenopathy Neurological: Sensory exam intact to light touch and pain, Coordination normal Psych/Mental Status: Normal Affect, Appropriate Laboratory Results 08/07/20 09:50: WBC 8.3, RBC 4.67, Hgb 14.4, Hct 47.4, MCV 101.5 H, MCH 30.8, MCHC 30.4 L, RDW Std Deviation 51.8 H, RDW Coeff of Bhavna 13.6, Plt Count 152, MPV 11.2, Immature Gran % (Auto) 0.800, Neut % (Auto) 78.6 H, Lymph % (Auto) 12.7 L, [place] % (Auto) 7.3, Eos % (Auto) 0.2, Baso % (Auto) 0.4, Absolute Neuts (auto) 6.5, Absolute Lymphs (auto) 1.05, Nucleated RBC % 0 08/07/20 09:50: Sodium 135 L, Potassium 4.5, Chloride 95 L, Carbon Dioxide 38.0 H, Anion Gap 2 L, BUN 59 H, Creatinine 2.20 H, Estim Creat Clear Calc 28.79, Est GFR (MDRD) Af Amer 38 L, Est GFR (MDRD) Non-Af 32 L, BUN/Creatinine Ratio 26.8 H, Glucose 154 H, Calcium 9.8, Total Bilirubin 0.40, AST 18, ALT 19, Alkaline Phosphatase 41 L, Troponin I 0.071 H, Total Protein 7.9, Albumin 3.4, Globulin 4.5 H, Albumin/Globulin Ratio 0.8 L 08/07/20 09:50: B-Natriuretic Peptide 434.1 H 08/07/20 09:50: Magnesium 2.5 08/07/20 10:26: Lactic Acid 1.3 08/07/20 10:26: Amiodarone Pending, Noramiodarone Pending 08/07/20 13:10: Troponin I 0.125 H Chest x-ray reviewed showed cardiomegaly with defibrillator placement. No effusions, no pulmonary edema. Current Medications Acetaminophen (Acetaminophen 325 Mg Tablet) 650 mg PO Q6H PRN PRN PRN Reason: Pain Score 1-10/Temp > 100.7 F Albuterol Sulfate (Albuterol 2.5 Mg/3 Ml Vial.Neb.) 2.5 mg INHALATION Q4H PRN PRN Reason: Bronchodialation Albuterol/Ipratropium (Ipratropium/Albuterol Sulfate 3 Ml Ampul.Neb) 3 ml INHALATION Q6HWA.RT JAMES Amiodarone HCl (Amiodarone 200 Mg Tablet) 200 mg PO DAILY JAMES Aspirin (Aspirin E.C. 81 Mg Tablet) 81 mg PO DAILY@0800 JAMES Atorvastatin Calcium (Atorvastatin Calcium 80 Mg Tablet) 80 mg PO QHS JAMES Budesonide (Budesonide Respules 0.5 Mg/2 Ml Ampul.Neb.) 0.5 mg INHALATION Q12H.RT PENDING SALE TO [facility] Calcitriol (Calcitriol 0.25 Mcg Capsule) 0.25 mcg PO DAILY PENDING SALE TO [facility] Carvedilol (Carvedilol 25 Mg Tablet) 25 mg PO BID JAMES Ezetimibe (Ezetimibe 10 Mg Tablet) 10 mg PO QHS JAMES Fenofibrate (Fenofibrate 145 Mg Tablet) 145 mg PO QHS PENDING SALE TO [facility] Ferrous Sulfate (Ferrous Sulfate 325 Mg Tablet) 325 mg PO TID@1200,1700,2200 PENDING SALE TO [facility] Last Admin: 08/07/20 13:32 Dose: 325 mg Documented by: Furosemide (Furosemide 20 Mg Tablet) 60 mg PO BIDLX PENDING SALE TO [facility] Hydralazine HCl (Hydralazine 25 Mg Tablet) 25 mg PO BID PENDING SALE TO [facility] Sodium Chloride () 250 mls @ 15 mls/hr IV .[id number] PRN PRN Reason: Saline Flush Sodium Chloride () 250 mls @ 15 mls/hr IV .[id number] PRN PRN Reason: Additional IVPB Infusion Isosorbide Dinitrate (Isosorbide Dn 10 Mg Tablet) 5 mg PO TID PENDING SALE TO [facility] Last Admin: 08/07/20 13:32 Dose: 5 mg Documented by: Levothyroxine Sodium (Levothyroxine 112 Mcg Tablet) 112 mcg PO DAILY@0600 PENDING SALE TO [facility] Potassium Chloride (Potassium Chloride 10 Meq Tablet) 10 meq PO DAILYCM PENDING SALE TO [facility] Sodium Chloride (0.9% Saline Lock 10 Ml Syringe) 10 - 40 ml IV UD PRN PRN Reason: SALINE FLUSH Spironolactone (Spironolactone 25 Mg Tablet) 25 mg PO DAILY PENDING SALE TO [facility] Tamsulosin HCl (Tamsulosin Hcl 0.4 Mg Capsule) 0.4 mg PO DAILY@0830 PENDING SALE TO [facility] Assessment/Plan All Active Problems (Last Reviewed 09/14/19 @ 10:24 by Zoraida Vences) Wide-complex tachycardia (Acute) Hemodynamic instability (Acute) Acute kidney injury on CKD stage III (Resolved) Acute kidney injury superimposed on chronic kidney disease (Resolved) Acute on chronic combined severe HF (Resolved) Acute on chronic respiratory failure with hypoxia and hypercapnia (Resolved) Acute systolic CHF (congestive heart failure) (Resolved) Acute systolic congestive heart failure (Resolved) Anasarca (Resolved) Cellulitis (Resolved) Cellulitis of leg (Resolved) Subtherapeutic international normalized ratio (INR) (Resolved) Thrombocytopenia (Resolved) Warfarin-induced coagulopathy (Resolved) 1. Wide-complex tachycardia: Status post cardioversion: Currently rate controlled based. Electrolytes were unremarkable. Continue with carvedilol and amiodarone. Cardiology on consultation. Echocardiogram ordered results pending. ICD interrogation pending. 2. Chronic atrial fibrillation: On carvedilol and amiodarone. Rivaroxaban held currently. 3. Cardiomyopathy: EF of 15%. On furosemide, spironolactone. No JUANITA nor angiotensin receptor maximiliano given chronic kidney disease. 4. Elevated troponin: Likely related with the tachycardia. Troponin I from 0.07-0.125. Continue to monitor. Continue to monitor. 5. Chronic kidney disease age 1: Creatinine around baseline. Continue to monitor. 6. VTE prophylaxis: SCDs 7. Advanced care planning: Discussed with the patient. Patient wishes to be DNR Comfort Care arrest no intubation. Inpatient E&M: [id number] Init Hosp L3
[2020-08-07] MEDS: Furosemide 20 MG Tablet 60 MG PO (17:10)
[2020-08-07] MEDS: Budesonide Respules 0.5 MG/2 ML AMPUL.NEB. INHALATION (19:32)
[2020-08-07] MEDS: Ipratropium/Albuterol Sulfate 3 ML AMPUL.NEB INHALATION (19:32)
[2020-08-07] MEDS: Amiodarone 200 MG Tablet PO (21:16)
[2020-08-07] MEDS: Atorvastatin Calcium 80 MG Tablet PO (21:16)
[2020-08-07] MEDS: Carvedilol 25 MG Tablet PO (21:17)
[2020-08-07] MEDS: hydrALAZINE 25 MG Tablet PO (21:17)
[2020-08-07] MEDS: Fenofibrate 145 MG Tablet PO (21:17)
[2020-08-07] MEDS: Ezetimibe 10 MG Tablet PO (21:18)
[2020-08-08] VITALS (14 sets, daily range): BP systolic 117–136; BP diastolic 47–55; PULSE 60–66; RESP 16–20; TEMP 36.4–36.8; O2SAT 95–99
[2020-08-08] MEDS: 0.9% Saline Lock 10 ML Syringe IV ×3 (06:02→21:40)
[2020-08-08] MEDS: Levothyroxine 112 MCG Tablet PO (06:02)
[2020-08-08] MEDS: Aspirin E.C. 81 MG Tablet PO (06:02)
[2020-08-08 06:43] LABS: ALB/GLOB Ratio 0.8 RATIO (0.9-2.4); AST(SGOT) 18 U/L (15-37); Alanine Aminotransfer ALT/SGPT 19 U/L (16-61); Albumin, Serum 2.9 g/dL (3.2-5.0); Alkaline Phosphatase 34 U/L (45-117); Anion Gap 2 (5-15); BUN 60 mg/dL (7-18); BUN/Creat Ratio 28.7 RATIO (10-20); Calcium,Total 8.9 mg/dL (8.5-10.1); Chloride 99 mmol/L (98-107); Creatinine, Serum 2.09 mg/dL (0.70-1.30); EST Glomerular Filtration Rate 33 mL/min (>60); Est Glom Filt Rate - Afr Amer 40 mL/min (>60); Estimated Creatinine Clearance 30.31 ml/min; Globulin 3.5 g/dL (2.2-4.2); Glucose 84 mg/dL (74-106); Potassium 4.1 mmol/L (3.5-5.1); Protein, Total 6.4 g/dL (6.4-8.2); Sodium Level 139 mmol/L (136-145)
[2020-08-08] MEDS: Ipratropium/Albuterol Sulfate 3 ML AMPUL.NEB INHALATION ×3 (06:46→19:04)
[2020-08-08] MEDS: Budesonide Respules 0.5 MG/2 ML AMPUL.NEB. INHALATION ×2 (06:46→19:04)
--- NOTE | 2020-08-08 08:25 | PCM.PN.CARD ---
Subjectve: The patient appears to be resting comfortably this morning with no new acute complaints. Objective: Vital Signs Temp Pulse Resp BP Pulse Ox 97.5 F L 60 17 121/52 H 95 08/08/20 06:00 08/08/20 07:00 08/08/20 06:49 08/08/20 06:00 08/08/20 06:49 Oxygen Flow Rate (L/min) 4 Oxygen Delivery Method Nasal Cannula Weight: 214 lb 11.684 oz Body Mass Index (BMI) 33.6 Intake and Output for Last 24 Hours 08/06/20 08/07/20 08/08/20 23:59 23:59 23:59 Intake Total 240 / 440 200 / 200 Output Total 425 / 925 1200 / 1200 Balance -185 / -485 -1000 / -1000 General: Awake, Alert, Oriented x 3, Cooperative, No Acute Distress HEENT: Atraumatic, Normocephalic, PERRL, EOMI, Sclera Non Icteric Neck: Supple, Good ROM, No JVD Lungs: Clear to auscultation Cardiovascular: Regular Rhythm, Normal S1, Normal S2 Abdomen: Bowel Sounds Present, Soft Extremities: No edema Neurological: No Focal Motor or Sensory Deficit Psych/Mental Status: Appropriate 08/07/20 09:50: WBC 8.3, RBC 4.67, Hgb 14.4, Hct 47.4, MCV 101.5 H, MCH 30.8, MCHC 30.4 L, Plt Count 152, MPV 11.2, Immature Gran % (Auto) 0.800, Neut % (Auto) 78.6 H, Lymph % (Auto) 12.7 L, [place] % (Auto) 7.3, Eos % (Auto) 0.2, Baso % (Auto) 0.4, Absolute Neuts (auto) 6.5, Nucleated RBC % 0 08/07/20 09:50: Sodium 135 L, Potassium 4.5, Chloride 95 L, Carbon Dioxide 38.0 H, Anion Gap 2 L, BUN 59 H, Creatinine 2.20 H, Est GFR (MDRD) Af Amer 38 L, Est GFR (MDRD) Non-Af 32 L, BUN/Creatinine Ratio 26.8 H, Glucose 154 H, Calcium 9.8, Total Bilirubin 0.40, Troponin I 0.071 H 08/07/20 09:50: B-Natriuretic Peptide 434.1 H 08/07/20 09:50: Magnesium 2.5 08/07/20 10:26: Lactic Acid 1.3 08/07/20 13:10: Troponin I 0.125 H 08/07/20 15:29: Troponin I 0.210 H 08/08/20 05:38: Sodium 139, Potassium 4.1, Chloride 99, Carbon Dioxide 38.0 H, Anion Gap 2 L, BUN 60 H, Creatinine 2.09 H, Est GFR (MDRD) Af Amer 40 L, Est GFR (MDRD) Non-Af 33 L, BUN/Creatinine Ratio 28.7 H, Glucose 84, Calcium 8.9, Total Bilirubin 0.40, Troponin I 0.237 H Rhythm: Electronic atrial paced rhythm Medical Necessity - Tobacco Use Smoking Status: Former smoker Assessment/Plan 1. Wide-complex tachycardia The patient presented with an episode of wide-complex tachycardia. He was deemed hemodynamically unstable. He underwent synchronized biphasic DC cardioversion. He has subsequently had ICD interrogation. Based upon the ICD interrogation the report states it appeared his underlying rhythm was in atrial flutter with subsequent conversion status post a synchronized biphasic DC cardioversion. The ICD interrogation also notes that he has had episodes on 08-02-2019 that appeared compatible with ventricular tachycardia with ATP P pacing x2 converting to underlying atrial fibrillation. It also notes he has had VT in the past with appropriate ICD shocks. The present time the patient is being monitored. He will continue follow-up of his cardiac enzymes. He is already undergone evaluation with a transthoracic echocardiogram with the results as noted. He will continue medical therapy. This may include an increase in his amiodarone therapy in attempt to assist with his underlying atrial and ventricular dysrhythmias. He is pending pharmacologic stress nuclear imaging study to further evaluate his coronary physiology/ischemic burden as to whether this will guide him to continue medical therapy and/or the need for repeat evaluation in the cardiac catheterization laboratory. Also he may need to be considered for future EP consultation as to whether or not he is a candidate for any other form of ablative therapy of his atrial dysrhythmia or potentially his AV node. 2. Hemodynamic instability The patient was reported as being hemodynamically unstable with his wide-complex dysrhythmia. He underwent synchronized biphasic DC cardioversion in the emergency department. He had return to his underlying rhythm with improvement in his hemodynamics. 3. CAD status post PCI The patient has been evaluated noninvasively and invasively in the past. He has continued medical therapy. Again he is pending further evaluation with a pharmacologic stress nuclear imaging study. Depending upon the results he may or may not need reevaluation in the cardiac catheterization laboratory. 4. Ischemic mediated cardiomyopathy He does have an ischemic mediated cardiomyopathy. His overall LV systolic function/LVEF appears similar to previous studies. He will need to continue medical management. He will continue evaluation based upon this event as deemed appropriate. 5. Chronic systolic mediated CHF At the moment the patient does not appear to have acute on chronic systolic mediated symptoms. He will need to continue his medical therapy. His overall LVEF remains low. 6. Atrial fibrillation The patient has remained in atrial fibrillation. He will need continued rate control therapy and anticoagulant therapy. Again depending upon his clinical course he may need consideration for repeat EP input regarding his atrial dysrhythmias. 7. Ventricular tachycardia It appears the patient has also had episodes of ventricular tachycardia which was required ATP pacing or defibrillations. He will need continued medical management. He may need additional noninvasive or invasive evaluation. 8. ICD The patient does have an ICD in place. It was interrogated today. It does appear to be functioning appropriately. 9. Hyperlipidemia He will continue risk factor evaluation and care as deemed appropriate. 10. Hypertension His blood pressure will be followed with adjustment of his medications as deemed appropriate taken into consideration his renal insufficiency. 11. PAD He has a history of PAD as previously noted including lower extremity revascularization and renal artery PCI. This would have to be taken into consideration if he requires further invasive evaluation and care. 12. COPD The patient reportedly has a history of COPD. He will need continued medical therapy by his primary care physicians, etc. 13. Chronic renal insufficiency He has a history of chronic renal insufficiency. Again this has to be taken into consideration with respect to any invasive procedures requiring IV contrast agents because of the concern of IV contrast mediated nephropathy. 14. Chronic anticoagulation The patient is chronically anticoagulated. Again is to have to be taken into consideration with respect to further evaluation and care if he requires invasive procedures. This note was generated using a voice recognition system and there may be incorrect words, spelling or punctuation that were not noted when reviewing the office note prior to saving.
--- NOTE | 2020-08-08 10:59 | NURSING ---
Pt gave verbal consent to speak to Cristy Rueda (ex ) about condition and care.
[2020-08-08 11:00] LABS: Thyroid Stim Hormone (TSH) 3.02 uIU/mL (0.358-3.74)
[2020-08-08] MEDS: Ferrous Sulfate 325 MG Tablet PO ×3 (11:19→21:26)
[2020-08-08] MEDS: Amiodarone 200 MG Tablet PO ×2 (11:19→21:27)
[2020-08-08] MEDS: Calcitriol 0.25 MCG Capsule PO (11:19)
[2020-08-08] MEDS: Tamsulosin HCl 0.4 MG Capsule PO (11:21)
--- NOTE | 2020-08-08 11:40 | CASEMGMT ---
CHAN CONTRERAS assessment: Face to Face with patient for initial transition planning/care coordination assessment. CHAN CONTRERAS introduced self and role at [facility], pt voices understanding and consents to assessment at this time. Pt is sitting up in bed in no distress at this time on 3L nc, which is his home order. Care providers, pharmacy, and demographics verified/updated at this time. Presentation: Weakness, heart racing-hx afib Admitting dx: Wide complex tachycardia PCP: Yony Specialists: yareli Pierce Pharmacy: [facility] Insurance: [facility] A/B, [facility] Prescription Benefit: Yes Living Will/HPOA: Pt has LW/HPOA and is aware that they are on file at [facility] at this time. Pt states his son, Samy Avery, is HPOA. LNOK: Samy Avery, son/HPOA; Charmaine Avery, daughter Living Arrangements: Pt states lives alone in 1 story home with 2 steps in and states no concerns at home at this time. Pt states is independent with ADL's. Transportation: Pt states drives self and states no transportation concerns at this time. DME/HHC: Pt states has a walk in shower and 3L nc home oxygen thru [employer]. Pt states no need for any further DME at this time. Pt states has had HHC in the past but not currently and has been to [facility] IP rehab in the past as well. Pt states no concerns with going home at time of discharge. Pt states is retired. Pt states does not smoke cigarettes or drink ETOH. Pt states no further concerns/needs at this time. CM to follow for increased home oxygen need, PT/OT evals, and any further discharge planning/needs. Advised pt to ask for CM if any further questions/concerns/needs arise, voices understanding. Pt Goal: Home Plan[place] CHAN CONTRERAS
--- NOTE | 2020-08-08 12:51 | STRESSREP_ITS ---
Stress Test Report Date: 08-08-2020 Procedure: Pharmacologic stress nuclear imaging study Indications: Atrial fibrillation/atrial flutter; ventricular tachycardia; CAD, PCI, ischemic mediated cardiomyopathy, chronic systolic CHF, abnormal cardiac enzymes Consent: Per the patient Procedure: The patient underwent pharmacologic (Regadenoson) evaluation with a peak heart rate of 75 beats per minute (50%predicted maximal heart rate) and a peak blood pressure of 110/62 mmHg. The baseline ECG demonstrated sinus rhythm; nonspecific IVCD. The peak pharmac ologic ECG demonstrated no obvious ECG changes. There was an occasional PVC during recovery. There was no complaint of chest discomfort during pharmacologic infusion or recovery. The examination was discontinued secondary to completion of protocol. Impression: 1. Pharmacologic (Regadenoson) evaluation 2. Peak pharmacologic ECG with no obvious ECG changes. 3. There was an occasional PVC during recovery. 4. Nuclear images pending Myocardial perfusion imaging study: Technique: The patient was injected with 14.9 millicuries of technetium 99m Cardiolite and subsequently rest SPECT Cardiolite nuclear imaging was obtained in the horizontal long, vertical long, and short axis views. The patient underwent pharmacologic (Regadenoson) evaluation with a peak heart rate of 75 beats per minute (50% percent predicted maximal heart rate) and a peak blood pressure of 110/62 mmHg. The patient was injected with 44.5 millicuries of technetium 99m Cardiolite and subsequently stress SPECT Cardiolite nuclear imaging was obtained in the horizontal long, vertical long, and short axis views. A gated Cardiolite study at peak stress was obtained. Interpretation: Rest and stress SPECT Cardiolite nuclear imaging status post realignment, normalization, and attenuation correction demonstrate the appearance of diminished absence of tracer uptake in portions of the inferior and lateral segments at both rest and stress which status post stress appears to be more prominent in portions of the distal inferior/inferoapical and distal lateral/lateral apical segments. There is diminished end systolic thickening and brightening. The gated Cardiolite study demonstrates diminished myocardial thickening and inward wall motion. The reported LVEF is 17%. Impression: 1. Rest and stress SPECT her nuclear imaging demonstrate myocardial perfusion changes compatible with an area of previous myocardial injury/infarction involving portions of the inferior and lateral segments with post stress myoca rdial perfusion changes appearing compatible with akira-infarct related myocardial ischemia in portions of the distal inferior/inferoapical and distal lateral/lateral apical segments. 2. The gated Cardiolite study reports an LVEF of 17%. This note was generated with [employer] dictation software. It may contain incorrect words, spelling, and punctuation that were not noted in checking the note before signing.
[2020-08-08] MEDS: Isosorbide DN 10 MG Tablet 5 MG PO ×2 (13:14→21:26)
[2020-08-08] MEDS: Furosemide 20 MG Tablet 60 MG PO ×2 (13:14→17:12)
[2020-08-08] MEDS: Spironolactone 25 MG Tablet PO (13:15)
--- NOTE | 2020-08-08 13:55 | PN_ITS ---
<Ky Richardson - Last Filed: 08/08/20 13:55> Patient Problems: Active and Suspected Problems (Last Reviewed 08/07/20 @ 15:[address] Simeon Kwong, DO) Wide-complex tachycardia (Acute) Hemodynamic instability (Acute) Reason for Visit: abnormal stress test Subjective: Today the patient underwent a stress test which was abnormal. He has had 3 prior stents and has a significantly reduced EF. He currently has no CP, pressure, tightness. He has no SOB/cough. He has no palpitations, LH, or dizziness. No LE edema. Pt is resting in chair at bedside NAD. Vitals/I&O's: Vital Signs Temp Pulse Resp BP Pulse Ox 98.2 F 60 17 126/47 H 96 08/08/20 11:00 08/08/20 12:46 08/08/20 12:46 08/08/20 11:00 08/08/20 11:00 Oxygen Flow Rate (L/min) 3 Oxygen Delivery Method Nasal Cannula Weight: 214 lb 11.684 oz Body Mass Index (BMI) 33.6 Intake and Output for Last 24 Hours 08/06/20 08/07/20 08/08/20 23:59 23:59 23:59 Intake Total 240 / 440 200 / 200 Output Total 425 / 925 1575 / 1575 Balance -185 / -485 -1375 / -1375 General: Alert, Oriented x3, Cooperative HEENT: Atraumatic, PERRLA, EOMI, Normocephalic Neck: Supple, No JVD, Negative Carotid Bruits Lungs: Clear to auscultation, Normal air movement Cardiovascular: Regular rate, No murmurs Abdomen: Bowel Sounds Present, Soft, Non Tender Extremities: No edema, Capillary Refill Less than 3 Seconds Skin: No rashes, No breakdown Musculoskeletal: No Tenderness to Palpation of Joints or Extremities Neurological: Cranial nerves II-XII grossly intact Psych/Mental Status: Normal Affect, Appropriate Laboratory Results 08/07/20 15:29: Troponin I 0.210 H 08/08/20 05:38: Sodium 139, Potassium 4.1, Chloride 99, Carbon Dioxide 38.0 H, Anion Gap 2 L, BUN 60 H, Creatinine 2.09 H, Estim Creat Clear Calc 30.31, Est GFR (MDRD) Af Amer 40 L, Est GFR (MDRD) Non-Af 33 L, BUN/Creatinine Ratio 28.7 H , Glucose 84, Calcium 8.9, Total Bilirubin 0.40, AST 18, ALT 19, Alkaline Phosphatase 34 L, Troponin I 0.237 H, Total Protein 6.4, Albumin 2.9 L, Globulin 3.5, Albumin/Globulin Ratio 0.8 L 08/08/20 05:38: TSH 3.02 Current Medications Acetaminophen (Acetaminophen 325 Mg Tablet) 650 mg PO Q6H PRN PRN PRN Reason: Pain Score 1-10/Temp > 100.7 F Albuterol Sulfate (Albuterol 2.5 Mg/3 Ml Vial.Neb.) 2.5 mg INHALATION Q4H PRN PRN Reason: Bronchodialation Albuterol/Ipratropium (Ipratropium/Albuterol Sulfate 3 Ml Ampul.Neb) 3 ml INHALATION Q6HWA.RT [facility] Last Admin: 08/08/20 12:44 Dose: 3 ml Documented by: Amiodarone HCl (Amiodarone 200 Mg Tablet) 200 mg PO BID [facility] Last Admin: 08/08/20 11:19 Dose: 200 mg Documented by: Aspirin (Aspirin E.C. 81 Mg Tablet) 81 mg PO DAILY@0800 [facility] Last Admin: 08/08/20 06:02 Dose: 81 mg Documented by: Atorvastatin Calcium (Atorvastatin Calcium 80 Mg Tablet) 80 mg PO QHS [facility] Last Admin: 08/07/20 21:16 Dose: 80 mg Documented by: Budesonide (Budesonide Respules 0.5 Mg/2 Ml Ampul.Neb.) 0.5 mg INHALATION Q12H.RT [facility] Last Admin: 08/08/20 06:46 Dose: 0.5 mg Documented by: Calcitriol (Calcitriol 0.25 Mcg Capsule) 0.25 mcg PO DAILY [facility] Last Admin: 08/08/20 11:19 Dose: 0.25 mcg Documented by: Carvedilol (Carvedilol 25 Mg Tablet) 25 mg PO BID [facility] Last Admin: 08/08/20 11:21 Dose: Not Given Documented by: Ezetimibe (Ezetimibe 10 Mg Tablet) 10 mg PO QHS [facility] Last Admin: 08/07/20 21:18 Dose: 10 mg Documented by: Fenofibrate (Fenofibrate 145 Mg Tablet) 145 mg PO QHS [facility] Last Admin: 08/07/20 21:17 Dose: 145 mg Documented by: Ferrous Sulfate (Ferrous Sulfate 325 Mg Tablet) 325 mg PO TID@1200,1700,2200 [facility] Last Admin: 08/08/20 11:19 Dose: 325 mg Documented by: Furosemide (Furosemide 20 Mg Tablet) 60 mg PO BIDLX [facility] Last Admin: 08/08/20 13:14 Dose: 60 mg Documented by: Hydralazine HCl (Hydralazine 25 Mg Tablet) 25 mg PO BID [facility] Last Admin: 08/08/20 11:21 Dose: Not Given Documented by: Sodium Chloride () 250 mls @ 15 mls/hr IV .[id number] PRN PRN Reason: Saline Flush Sodium Chloride () 250 mls @ 15 mls/hr IV .[id number] PRN PRN Reason: Additional IVPB Infusion Sodium Chloride () 1,000 mls @ 15 mls/hr IV .Q48H [facility] Isosorbide Dinitrate (Isosorbide Dn 10 Mg Tablet) 5 mg PO TID [facility] Last Admin: 08/08/20 13:14 Dose: 5 mg Documented by: Levothyroxine Sodium (Levothyroxine 112 Mcg Tablet) 112 mcg PO DAILY@0600 [facility] Last Admin: 08/08/20 06:02 Dose: 112 mcg Documented by: Potassium Chloride (Potassium Chloride 10 Meq Tablet) 10 meq PO DAILYCM [facility] Last Admin: 08/08/20 11:03 Dose: 10 meq Documented by: Sodium Chloride (0.9% Saline Lock 10 Ml Syringe) 10 - 40 ml IV UD PRN PRN Reason: SALINE FLUSH Last Admin: 08/08/20 07:45 Dose: 10 ml Documented by: Spironolactone (Spironolactone 25 Mg Tablet) 25 mg PO DAILY [facility] Last Admin: 08/08/20 13:15 Dose: 25 mg Documented by: Tamsulosin HCl (Tamsulosin Hcl 0.4 Mg Capsule) 0.4 mg PO DAILY@0830 [facility] Last Admin: 08/08/20 11:21 Dose: 0.4 mg Documented by: STROKE Vital Signs/Narrative: Vital Signs Temp Pulse Resp BP Pulse Ox 08/08/20 12:46 60 17 08/08/20 11:00 98.2 F 60 16 126/47 H 96 Medical Necessity - Tobacco Use Smoking Status: Former smoker Assessment/Plan All Active Problems (Last Reviewed 08/07/20 @ 15:[address] Simeon Kwong DO) Wide-complex tachycardia (Acute) Hemodynamic instability (Acute) Acute kidney injury on CKD stage III (Resolved) Acute kidney injury superimposed on chronic kidney disease (Resolved) Acute on chronic combined severe HF (Resolved) Acute on chronic respiratory failure with hypoxia and hypercapnia (Resolved) Acute systolic CHF (congestive heart failure) (Resolved) Acute systolic congestive heart failure (Resolved) Anasarca (Resolved) Cellulitis (Resolved) Cellulitis of leg (Resolved) Subtherapeutic international normalized ratio (INR) (Resolved) Thrombocytopenia (Resolved) Warfarin-induced coagulopathy (Resolved) 1. Wide complex tachycardia - stable s/p cardioversion. Underlying rhythm was af lutter per ICD interrogation. Also prior VT with ICD firing. TSH normal. Amio levels pending. Continue Coreg. 2. CAD with elevated troponin - stress test today c/w ischemic changes. Probably heart cath in AM. Will need close monitoring of renal function as he is stage III-IV CKD. -Further evaluation as per direction of cardiology. 3. Ischemic CM - echo with EF 15%. Does not appear significantly volume overloaded at this time. His home oral lasix is continued at 60 BID. 4. BPH - flomax. 5. Hypothyroidism - continue synthroid, tsh normal. 6. HLD - statin, zetia, tricor 7. CKDIII-IV - trend. DVT ppx: hold for possible cath, was previously on xarelto. This patient was seen by Ky Richardson PA-C under the supervision of Dr. Kwong <Simeon Kwong - Last Filed: 08/08/20 15:40> Vitals/I&O's: Vital Signs Temp Pulse Resp BP Pulse Ox 36.8 C 60 17 126/47 H 96 08/08/20 11:00 08/08/20 12:46 08/08/20 12:46 08/08/20 11:00 08/08/20 11:00 Oxygen Flow Rate (L/min) 3 Oxygen Delivery Method Nasal Cannula Weight: 97.4 kg Body Mass Index (BMI) 33.6 Intake and Output for Last 24 Hours 08/06/20 08/07/20 08/08/20 23:59 23:59 23:59 Intake Total 240 / 440 200 / 200 Output Total 425 / 925 1575 / 1575 Balance -185 / -485 -1375 / -1375 General: Alert, Cooperative HEENT: Atraumatic, Normocephalic Lungs: Clear to auscultation, Normal air movement Cardiovascular: Regular rate, No murmurs Abdomen: Bowel Sounds Present, Soft, Non Tender, Non-Distended Extremities: No edema, No Calf Tenderness Skin: No rashes, No breakdown Musculoskeletal: No Tenderness to Palpation of Joints or Extremities Psych/Mental Status: Normal Affect, Appropriate Laboratory Results 08/07/20 15:29: Troponin I 0.210 H 08/08/20 05:38: Sodium 139, Potassium 4.1, Chloride 99, Carbon Dioxide 38.0 H, Anion Gap 2 L, BUN 60 H, Creatinine 2.09 H, Estim Creat Clear Calc 30.31, Est GFR (MDRD) Af Amer 40 L, Est GFR (MDRD) Non-Af 33 L, BUN/Creatinine Ratio 28.7 H , Glucose 84, Calcium 8.9, Total Bilirubin 0.40, AST 18, ALT 19, Alkaline Phosphatase 34 L, Troponin I 0.237 H, Total Protein 6.4, Albumin 2.9 L, Globulin 3.5, Albumin/Globulin Ratio 0.8 L 08/08/20 05:38: TSH 3.02 Current Medications Acetaminophen (Acetaminophen 325 Mg Tablet) 650 mg PO Q6H PRN PRN PRN Reason: Pain Score 1-10/Temp > 100.7 F Albuterol Sulfate (Albuterol 2.5 Mg/3 Ml Vial.Neb.) 2.5 mg INHALATION Q4H PRN PRN Reason: Bronchodialation Albuterol/Ipratropium (Ipratropium/Albuterol Sulfate 3 Ml Ampul.Neb) 3 ml INHALATION Q6HWA.RT [facility] Last Admin: 08/08/20 12:44 Dose: 3 ml Documented by: Amiodarone HCl (Amiodarone 200 Mg Tablet) 200 mg PO BID [facility] Last Admin: 08/08/20 11:19 Dose: 200 mg Documented by: Aspirin (Aspirin E.C. 81 Mg Tablet) 81 mg PO DAILY@0800 [facility] Last Admin: 08/08/20 06:02 Dose: 81 mg Documented by: Atorvastatin Calcium (Atorvastatin Calcium 80 Mg Tablet) 80 mg PO QHS [facility] Last Admin: 08/07/20 21:16 Dose: 80 mg Documented by: Budesonide (Budesonide Respules 0.5 Mg/2 Ml Ampul.Neb.) 0.5 mg INHALATION Q12H.RT [facility] Last Admin: 08/08/20 06:46 Dose: 0.5 mg Documented by: Calcitriol (Calcitriol 0.25 Mcg Capsule) 0.25 mcg PO DAILY [facility] Last Admin: 08/08/20 11:19 Dose: 0.25 mcg Documented by: Carvedilol (Carvedilol 25 Mg Tablet) 25 mg PO BID [facility] Last Admin: 08/08/20 11:21 Dose: Not Given Documented by: Ezetimibe (Ezetimibe 10 Mg Tablet) 10 mg PO QHS [facility] Last Admin: 08/07/20 21:18 Dose: 10 mg Documented by: Fenofibrate (Fenofibrate 145 Mg Tablet) 145 mg PO QHS [facility] Last Admin: 08/07/20 21:17 Dose: 145 mg Documented by: Ferrous Sulfate (Ferrous Sulfate 325 Mg Tablet) 325 mg PO TID@1200,1700,2200 [facility] Last Admin: 08/08/20 11:19 Dose: 325 mg Documented by: Furosemide (Furosemide 20 Mg Tablet) 60 mg PO BIDLX [facility] Last Admin: 08/08/20 13:14 Dose: 60 mg Documented by: Hydralazine HCl (Hydralazine 25 Mg Tablet) 25 mg PO BID [facility] Last Admin: 08/08/20 11:21 Dose: Not Given Documented by: Sodium Chloride () 250 mls @ 15 mls/hr IV .[id number] PRN PRN Reason: Saline Flush Sodium Chloride () 250 mls @ 15 mls/hr IV .[id number] PRN PRN Reason: Additional IVPB Infusion Sodium Chloride () 1,000 mls @ 15 mls/hr IV .Q48H [facility] Isosorbide Dinitrate (Isosorbide Dn 10 Mg Tablet) 5 mg PO TID [facility] Last Admin: 08/08/20 13:14 Dose: 5 mg Documented by: Levothyroxine Sodium (Levothyroxine 112 Mcg Tablet) 112 mcg PO DAILY@0600 [facility] Last Admin: 08/08/20 06:02 Dose: 112 mcg Documented by: Potassium Chloride (Potassium Chloride 10 Meq Tablet) 10 meq PO DAILYCM [facility] Last Admin: 08/08/20 11:03 Dose: 10 meq Documented by: Sodium Chloride (0.9% Saline Lock 10 Ml Syringe) 10 - 40 ml IV UD PRN PRN Reason: SALINE FLUSH Last Admin: 08/08/20 07:45 Dose: 10 ml Documented by: Spironolactone (Spironolactone 25 Mg Tablet) 25 mg PO DAILY [facility] Last Admin: 08/08/20 13:15 Dose: 25 mg Documented by: Tamsulosin HCl (Tamsulosin Hcl 0.4 Mg Capsule) 0.4 mg PO DAILY@0830 [facility] Last Admin: 08/08/20 11:21 Dose: 0.4 mg Documented by: STROKE Vital Signs/Narrative: Vital Signs Pulse Resp 08/08/20 12:46 60 17 Assessment/Plan Patient seen and examined independently. Data reviewed. I agree with the above note by the physician speech correction assistant. 1. Wide-complex tachycardia: Status post cardioversion: Currently rate controlled based. Electrolytes were unremarkable. Continue with carvedilol and amiodarone. Cardiology on consultation. Echocardiogram ordered results pending. ICD interrogation pending. 2. Chronic atrial fibrillation: On carvedilol and amiodarone. Rivaroxaban held currently. 3. Cardiomyopathy: EF of 15%. On furosemide, spironolactone. No JUANITA nor angiotensin receptor maximiliano given chronic kidney disease. 4. Elevated troponin: Likely related with the tachycardia. Troponin I from 0.07-0.125. Continue to monitor. Continue to monitor. Stress abnormal. Left heart catheterization 5. Chronic kidney disease age 1: Creatinine around baseline. Continue to monitor. 6. VTE prophylaxis: SCDs 7. Advanced care planning: Discussed with the patient. Patient wishes to be DNR Comfort Care arrest no intubation. Inpatient E&M: [id number] Subs Hosp L2
[2020-08-08] MEDS: Carvedilol 25 MG Tablet PO (21:26)
[2020-08-08] MEDS: Fenofibrate 145 MG Tablet PO (21:26)
[2020-08-08] MEDS: hydrALAZINE 25 MG Tablet PO (21:26)
[2020-08-08] MEDS: Ezetimibe 10 MG Tablet PO (21:27)
[2020-08-08] MEDS: Atorvastatin Calcium 80 MG Tablet PO (21:27)
[2020-08-08] MEDS: Clopidogrel Bisulfate 300 MG Tablet PO (21:30)
[2020-08-09] VITALS (22 sets, daily range): BP systolic 81–133; BP diastolic 42–79; PULSE 60–74; RESP 14–20; TEMP 36.4–36.8; O2SAT 92–99
--- NOTE | 2020-08-09 05:00 | EKG12_ITS ---
Test Reason : AM EKG Blood Pressure : / mmHG Vent. Rate : 061 BPM Atrial Rate : 061 BPM P-R Int : 240 ms QRS Dur : 112 ms QT Int : 454 ms P-R-T Axes : 088 010 207 degrees QTc Int : 457 ms Atrial-paced rhythm with prolonged AV conduction Inferior infarct , age undetermined ST & T wave abnormality, consider anterolateral ischemia Abnormal ECG When compared with ECG of 07-AUG-2020 10:15, MANUAL COMPARISON REQUIRED, DATA IS UNCONFIRMED Confirmed by LYLE MESSINA, CLARI ([id number]), staff editor KLAUDIA DAVIS ([id number]) on 08/19/2020 12:56:24 PM Referred By: MINGO Confirmed By:BAILEY ALVARENGA MD
[2020-08-09 05:54] LABS: Anion Gap 3 (5-15); BUN 53 mg/dL (7-18); BUN/Creat Ratio 28.5 RATIO (10-20); Calcium,Total 9.3 mg/dL (8.5-10.1); Chloride 98 mmol/L (98-107); Creatinine, Serum 1.86 mg/dL (0.70-1.30); EST Glomerular Filtration Rate 38 mL/min (>60); Est Glom Filt Rate - Afr Amer 46 mL/min (>60); Estimated Creatinine Clearance 34.06 ml/min; Glucose 89 mg/dL (74-106); Potassium 3.7 mmol/L (3.5-5.1); Sodium Level 139 mmol/L (136-145)
[2020-08-09] MEDS: 0.9% Normal Saline 1,000 ML 15 ML IV (06:09)
[2020-08-09] MEDS: Aspirin E.C. 81 MG Tablet PO (06:10)
[2020-08-09] MEDS: Isosorbide DN 10 MG Tablet 5 MG PO (06:10)
[2020-08-09] MEDS: Levothyroxine 112 MCG Tablet PO (06:10)
[2020-08-09] MEDS: Amiodarone 200 MG Tablet PO ×2 (06:10→21:44)
[2020-08-09] MEDS: Clopidogrel Bisulfate 75 MG Tablet PO (06:11)
[2020-08-09] MEDS: Budesonide Respules 0.5 MG/2 ML AMPUL.NEB. INHALATION ×2 (06:36→20:02)
[2020-08-09] MEDS: Ipratropium/Albuterol Sulfate 3 ML AMPUL.NEB INHALATION ×3 (06:36→20:02)
--- NOTE | 2020-08-09 06:55 | NURSING ---
Gave report to CHAN Vivar in wharf labourer. Pt sent down to wharf labourer w/ CHEMISTRY TUTOR. Gracy Stern RN
--- NOTE | 2020-08-09 08:47 | CL.D_ITS ---
Patient Name: MOE CAMEJO Study Date: 08/09/2020 Performing: Eros Kumar MD Ht: 66.92 inches 170 cm : 1950 Wt: 213.85 lbs 97 kg Age: 69 Gender: male BSA: 2.08 PROCEDURE(S) PERFORMED AB78-[facility] CLINICAL PROFILE AND INDICATIONS Indications: Suspected CAD, Cardiac Arrythmia, LV Dysfunction, Cardiomyopathy Heart Failure: NYHA Class: 3, Newly Diagnosed: No, Heart Failure Type: Systolic Stress/Imaging Date: 08/08/2020tress Test with SPECT MPI: Positive Intermediate Risk Angina Classification Anginal Classification w/in 2 Weeks: Anginal Equivalent Dyspnea CAD Presentations: Other: dyspnea on exertion; cardiac arrhythmia CONCLUSIONS [place] Multivessel CAD LAD: stent: patent LCX: stent: patent Left to Left collateral flow Left to Right collateral flow RECOMMENDATIONS Risk factor modification Medical therapy DESCRIPTION OF PROCEDURE The patient arrived to the procedure lab. The risks and benefits of the procedure as well as a full d escription of our services here and current unavailability of surgical backup were fully explained to the patient and/or their significant other prior to the catheterization. The Timeout was completed, verifying the correct patient and procedure. The patient's procedural site was prepped and draped in the usual fashion. Local anesthetic was given subcutaneously to right brachial region with Lidocaine 2%. Using a modified Seldinger technique, arterial access was obtained via the right brachial artery, a 6Fr sheath was inserted. Left Coronary Artery selective angiography was performed in multiple vie ws using a 5 Fr. 4.0 [place] catheter. Left Coronary Artery selective angiography was performed in mult iple views using a 5 Fr. JL3.5 catheter. Right Coronary Artery selective angiography was then perform ed in multiple views using a 5 Fr. JR 4 catheter.The arterial sheath was pulled and manual compression applied until hemostasis is achieved. CORONARY ANGIOGRAPHY DOMINANCE: Right Dominant LEFT HEART ASSESSMENT Left Ventricular Ejection Fraction: Not assessed LEFT MAIN: very short bifurcating vessel (almost separate ostia to the LAD / LCX), Angiographically n ormal LEFT ANTERIOR DESCENDING ARTERY: PROX LAD: Previously placed stent is patent MID LAD: Mild luminal irregularities DISTAL LAD: Mild luminal irregularities SEPTAL: : bifurcating vessel: ostial: 50 - 75 % Stenosis CIRCUMFLEX ARTERY: PROX CIRC: Previously placed stent is patent, Mild luminal irregularities MID CIRC: Mild luminal irregularities OM 1: Ostial - is occluded: appears to fill late and partially from left to left collateral flow RIGHT CORONARY ARTERY: distal RCA system: fills late and partially from left to right collateral flow PROX RCA: is occluded COLLATERAL FLOW: Collateral flow from Left to Left Collateral flow from Left to Right COMPLICATIONS No Complications PROCEDURE MEDICATIONS Fentanyl 50 mcg IV Versed 1 mg IV Oxygen: 3 L/min via nasal cannula Heparin diluted in 23cc Heparinized saline. Patient given 10cc IA of this solution. 08/09/2020 07:47: 19 Verapamil 2.5mg, Ntg 100mcgs, 2000 units of Heparin diluted in 23cc Heparinized saline. Patient give n 10cc IA of this solution. 08/09/2020 07:47:19 SUMMARY OF HEMODYNAMIC DATA Time AIR REST AO 118/51 (75) SA 07:50:38 ECG 07:54:59 Signed By Eros Kumar MD On 08/09/2020 08:46:15 Eros Kumar MD
[2020-08-09] MEDS: Furosemide 20 MG Tablet 60 MG PO ×2 (09:39→17:08)
[2020-08-09] MEDS: Spironolactone 25 MG Tablet PO (09:40)
[2020-08-09] MEDS: Tamsulosin HCl 0.4 MG Capsule PO (09:40)
[2020-08-09] MEDS: Calcitriol 0.25 MCG Capsule PO (09:41)
[2020-08-09] MEDS: Carvedilol 25 MG Tablet PO ×2 (09:41→22:52)
[2020-08-09] MEDS: 0.9% Normal Saline 1,000 ML 50 ML IV (09:43)
[2020-08-09] MEDS: Ferrous Sulfate 325 MG Tablet PO ×3 (12:08→21:44)
--- NOTE | 2020-08-09 13:07 | PN_ITS ---
<Ky Richardson - Last Filed: 08/09/20 13:07> Patient Problems: Active and Suspected Problems (Last Reviewed 08/07/20 @ 15:[address] Simeon Kwong DO) Wide-complex tachycardia (Acute) Hemodynamic instability (Acute) Reason for Visit: s/p heart cath Subjective: Patient underwent cath today with no intervention. No chest pain SOB palp. No fever/chills. No nausea/vomiting/diarrhea. Pt with no complaints at this time. Resting comfortably in bed NAD. Vitals/I&O's: Vital Signs Temp Pulse Resp BP Pulse Ox 98 F 61 14 103/53 L 95 08/09/20 10:15 08/09/20 12:34 08/09/20 12:00 08/09/20 12:00 08/09/20 12:00 Oxygen Flow Rate (L/min) 2 Oxygen Delivery Method Nasal Cannula Weight: 214 lb 11.684 oz Body Mass Index (BMI) 33.6 Intake and Output for Last 24 Hours 08/07/20 08/08/20 08/09/20 23:59 23:59 23:59 Intake Total 240 / 440 620 / 920 1065 / 1065 Output Total 425 / 925 2225 / 2975 1550 / 1550 Balance -185 / -485 -1605 / -2055 -485 / -485 General: Alert, Oriented x3, Cooperative HEENT: Atraumatic, PERRLA, EOMI, Normocephalic Neck: Supple, No JVD, Negative Carotid Bruits Lungs: Clear to auscultation, Normal air movement Cardiovascular: Regular rate, No murmurs Abdomen: Bowel Sounds Present, Soft, Non Tender Extremities: No edema, Capillary Refill Less than 3 Seconds Skin: No rashes, No breakdown Musculoskeletal: No Tenderness to Palpation of Joints or Extremities Neurological: Cranial nerves II-XII grossly intact Psych/Mental Status: Normal Affect, Appropriate Laboratory Results 08/09/20 05:20: Sodium 139, Potassium 3.7, Chloride 98, Carbon Dioxide 38.0 H, Anion Gap 3 L, BUN 53 H, Creatinine 1.86 H, Estim Creat Clear Calc 34.06, Est GFR (MDRD) Af Amer 46 L, Est GFR (MDRD) Non-Af 38 L, BUN/Creatinine Ratio 28.5 H , Glucose 89, Calcium 9.3 Current Medications Acetaminophen (Acetaminophen 325 Mg Tablet) 650 mg PO Q6H PRN PRN PRN Reason: Pain Score 1-10/Temp > 100.7 F Albuterol Sulfate (Albuterol 2.5 Mg/3 Ml Vial.Neb.) 2.5 mg INHALATION Q4H PRN PRN Reason: Bronchodialation Albuterol/Ipratropium (Ipratropium/Albuterol Sulfate 3 Ml Ampul.Neb) 3 ml INHALATION Q6HWA.RT [facility] Last Admin: 08/09/20 12:45 Dose: 3 ml Documented by: Amiodarone HCl (Amiodarone 200 Mg Tablet) 200 mg PO BID [facility] Last Admin: 08/09/20 06:10 Dose: 200 mg Documented by: Aspirin (Aspirin E.C. 81 Mg Tablet) 81 mg PO DAILY@0800 [facility] Last Admin: 08/09/20 06:10 Dose: 81 mg Documented by: Atorvastatin Calcium (Atorvastatin Calcium 80 Mg Tablet) 80 mg PO QHS [facility] Last Admin: 08/08/20 21:27 Dose: 80 mg Documented by: Budesonide (Budesonide Respules 0.5 Mg/2 Ml Ampul.Neb.) 0.5 mg INHALATION Q12H.RT [facility] Last Admin: 08/09/20 06:36 Dose: 0.5 mg Documented by: Calcitriol (Calcitriol 0.25 Mcg Capsule) 0.25 mcg PO DAILY [facility] Last Admin: 08/09/20 09:41 Dose: 0.25 mcg Documented by: Carvedilol (Carvedilol 25 Mg Tablet) 25 mg PO BID [facility] Last Admin: 08/09/20 09:41 Dose: 25 mg Documented by: Ezetimibe (Ezetimibe 10 Mg Tablet) 10 mg PO QHS [facility] Last Admin: 08/08/20 21:27 Dose: 10 mg Documented by: Fenofibrate (Fenofibrate 145 Mg Tablet) 145 mg PO QHS [facility] Last Admin: 08/08/20 21:26 Dose: 145 mg Documented by: Ferrous Sulfate (Ferrous Sulfate 325 Mg Tablet) 325 mg PO TID@1200,1700,2200 [facility] Last Admin: 08/09/20 12:08 Dose: 325 mg Documented by: Furosemide (Furosemide 20 Mg Tablet) 60 mg PO BIDLX [facility] Last Admin: 08/09/20 09:39 Dose: 60 mg Documented by: Heparin Sodium (Beef Lung) (Heparin Lock 500 Unit/5 Ml In 10 Ml Syringe) 500 unit IV UD PRN PRN Reason: HEPARIN FLUSH Hydralazine HCl (Hydralazine 25 Mg Tablet) 25 mg PO BID [facility] Last Admin: 08/09/20 10:12 Dose: Not Given Documented by: Sodium Chloride () 250 mls @ 15 mls/hr IV .[id number] PRN PRN Reason: Saline Flush Sodium Chloride () 250 mls @ 15 mls/hr IV .[id number] PRN PRN Reason: Additional IVPB Infusion Sodium Chloride () 1,000 mls @ 15 mls/hr IV .Q48H [facility] Isosorbide Dinitrate (Isosorbide Dn 10 Mg Tablet) 10 mg PO TID [facility] Labetalol HCl (Labetalol (Prefilled) 20 Mg/4 Ml) 5 mg IV X1 PRN PRN Reason: SBP > 160 prior to sheath pull Stop: 08/11/20 08:24 Levothyroxine Sodium (Levothyroxine 112 Mcg Tablet) 112 mcg PO DAILY@0600 [facility] Last Admin: 08/09/20 06:10 Dose: 112 mcg Documented by: Potassium Chloride (Potassium Chloride 10 Meq Tablet) 10 meq PO DAILYCM [facility] Last Admin: 08/09/20 09:39 Dose: 10 meq Documented by: Sodium Chloride (0.9% Saline Lock 10 Ml Syringe) 10 - 40 ml IV UD PRN PRN Reason: SALINE FLUSH Last Admin: 08/08/20 21:40 Dose: 20 ml Documented by: Spironolactone (Spironolactone 25 Mg Tablet) 25 mg PO DAILY [facility] Last Admin: 08/09/20 09:40 Dose: 25 mg Documented by: Tamsulosin HCl (Tamsulosin Hcl 0.4 Mg Capsule) 0.4 mg PO DAILY@0830 [facility] Last Admin: 08/09/20 09:40 Dose: 0.4 mg Documented by: STROKE Vital Signs/Narrative: Vital Signs Temp Pulse Resp BP Pulse Ox 08/09/20 12:34 61 08/09/20 12:00 60 14 103/53 L 95 08/09/20 11:00 60 15 97/42 L 95 08/09/20 10:15 98 F 60 15 81/49 L 95 08/09/20 09:45 60 15 101/56 L 94 08/09/20 09:25 97.8 F 60 15 110/57 L 92 08/09/20 09:09 60 15 116/59 L 97 Medical Necessity - Tobacco Use Smoking Status: Former smoker Assessment/Plan All Active Problems (Last Reviewed 08/07/20 @ 15:[address] Simeon Kwong, DO) Wide-complex tachycardia (Acute) Hemodynamic instability (Acute) Acute kidney injury on CKD stage III (Resolved) Acute kidney injury superimposed on chronic kidney disease (Resolved) Acute on chronic combined severe HF (Resolved) Acute on chronic respiratory failure with hypoxia and hypercapnia (Resolved) Acute systolic CHF (congestive heart failure) (Resolved) Acute systolic congestive heart failure (Resolved) Anasarca (Resolved) Cellulitis (Resolved) Cellulitis of leg (Resolved) Subtherapeutic international normalized ratio (INR) (Resolved) Thrombocytopenia (Resolved) Warfarin-induced coagulopathy (Resolved) 1. Wide complex tachycardia - stable s/p cardioversion. Underlying rhythm was aflutter per ICD interrogation. Also prior VT with ICD firing. TSH normal. Amio levels pending. Continue Coreg. 2. CAD with elevated troponin - stress test today c/w ischemic changes. Probably heart cath in AM. Will need close monitoring of renal function as he is stage III-IV CKD. -Further evaluation as per direction of cardiology. 3. Ischemic CM - echo with EF 15%. Does not appear significantly volume overloaded at this time. His home oral lasix is continued at [address] 4. BPH - flomax. 5. Hypothyroidism - continue synthroid, tsh normal. 6. HLD - statin, zetia, tricor 7. CKDIII-IV - trend. DVT ppx: resume xarelto when ok with cardiology Pt will be monitored overnight with repeat BMP in AM. Pt will need f/u with cardiology, nephrology at [facility]. This patient was seen by Ky Richardson PA-C under the supervision of Dr. Kwong <Simeon Kwong - Last Filed: 08/09/20 16:33> Subjective: Feels well. No issues overnight. Vitals/I&O's: Vital Signs Temp Pulse Resp BP Pulse Ox 36.6 C 61 15 105/53 L 98 08/09/20 15:54 08/09/20 15:54 08/09/20 15:54 08/09/20 15:54 08/09/20 15:54 Oxygen Flow Rate (L/min) 2 Oxygen Delivery Method Nasal Cannula Weight: 97.4 kg Body Mass Index (BMI) 33.6 Intake and Output for Last 24 Hours 08/07/20 08/08/20 08/09/20 23:59 23:59 23:59 Intake Total 240 / 440 620 / 920 1065 / 1065 Output Total 425 / 925 2225 / 2975 1550 / 1550 Balance -185 / -485 -1605 / -2055 -485 / -485 General: Alert, Cooperative HEENT: Atraumatic, Normocephalic Lungs: Clear to auscultation, Normal air movement Cardiovascular: Regular rate, Regular Rhythm, Normal S1, Normal S2, No murmurs Abdomen: Bowel Sounds Present, Soft, Non Tender, Non-Distended Extremities: No edema, No Calf Tenderness Skin: No rashes, No breakdown Psych/Mental Status: Normal Affect, Appropriate Laboratory Results 08/09/20 05:20: Sodium 139, Potassium 3.7, Chloride 98, Carbon Dioxide 38.0 H, Anion Gap 3 L, BUN 53 H, Creatinine 1.86 H, Estim Creat Clear Calc 34.06, Est GFR (MDRD) Af Amer 46 L, Est GFR (MDRD) Non-Af 38 L, BUN/Creatinine Ratio 28.5 H , Glucose 89, Calcium 9.3 Current Medications Acetaminophen (Acetaminophen 325 Mg Tablet) 650 mg PO Q6H PRN PRN PRN Reason: Pain Score 1-10/Temp > 100.7 F Albuterol Sulfate (Albuterol 2.5 Mg/3 Ml Vial.Neb.) 2.5 mg INHALATION Q4H PRN PRN Reason: Bronchodialation Albuterol/Ipratropium (Ipratropium/Albuterol Sulfate 3 Ml Ampul.Neb) 3 ml INHALATION Q6HWA.RT [facility] Last Admin: 08/09/20 12:45 Dose: 3 ml Documented by: Amiodarone HCl (Amiodarone 200 Mg Tablet) 200 mg PO BID [facility] Last Admin: 08/09/20 06:10 Dose: 200 mg Documented by: Aspirin (Aspirin E.C. 81 Mg Tablet) 81 mg PO DAILY@0800 [facility] Last Admin: 08/09/20 06:10 Dose: 81 mg Documented by: Atorvastatin Calcium (Atorvastatin Calcium 80 Mg Tablet) 80 mg PO QHS [facility] Last Admin: 08/08/20 21:27 Dose: 80 mg Documented by: Budesonide (Budesonide Respules 0.5 Mg/2 Ml Ampul.Neb.) 0.5 mg INHALATION Q12H.RT [facility] Last Admin: 08/09/20 06:36 Dose: 0.5 mg Documented by: Calcitriol (Calcitriol 0.25 Mcg Capsule) 0.25 mcg PO DAILY [facility] Last Admin: 08/09/20 09:41 Dose: 0.25 mcg Documented by: Carvedilol (Carvedilol 25 Mg Tablet) 25 mg PO BID [facility] Last Admin: 08/09/20 09:41 Dose: 25 mg Documented by: Ezetimibe (Ezetimibe 10 Mg Tablet) 10 mg PO QHS [facility] Last Admin: 08/08/20 21:27 Dose: 10 mg Documented by: Fenofibrate (Fenofibrate 145 Mg Tablet) 145 mg PO QHS [facility] Last Admin: 08/08/20 21:26 Dose: 145 mg Documented by: Ferrous Sulfate (Ferrous Sulfate 325 Mg Tablet) 325 mg PO TID@1200,1700,2200 [facility] Last Admin: 08/09/20 12:08 Dose: 325 mg Documented by: Furosemide (Furosemide 20 Mg Tablet) 60 mg PO BIDLX [facility] Last Admin: 08/09/20 09:39 Dose: 60 mg Documented by: Heparin Sodium (Beef Lung) (Heparin Lock 500 Unit/5 Ml In 10 Ml Syringe) 500 unit IV UD PRN PRN Reason: HEPARIN FLUSH Sodium Chloride () 250 mls @ 15 mls/hr IV .[id number] PRN PRN Reason: Saline Flush Sodium Chloride () 250 mls @ 15 mls/hr IV .[id number] PRN PRN Reason: Additional IVPB Infusion Sodium Chloride () 1,000 mls @ 15 mls/hr IV .Q48H [facility] Last Admin: 08/09/20 13:17 Dose: Not Given Documented by: Isosorbide Dinitrate (Isosorbide Dn 10 Mg Tablet) 10 mg PO TID [facility] Last Admin: 08/09/20 13:17 Dose: Not Given Documented by: Labetalol HCl (Labetalol (Prefilled) 20 Mg/4 Ml) 5 mg IV X1 PRN PRN Reason: SBP > 160 prior to sheath pull Stop: 08/11/20 08:24 Levothyroxine Sodium (Levothyroxine 112 Mcg Tablet) 112 mcg PO DAILY@0600 [facility] Last Admin: 08/09/20 06:10 Dose: 112 mcg Documented by: Potassium Chloride (Potassium Chloride 10 Meq Tablet) 10 meq PO DAILYCM [facility] Last Admin: 08/09/20 09:39 Dose: 10 meq Documented by: Sodium Chloride (0.9% Saline Lock 10 Ml Syringe) 10 - 40 ml IV UD PRN PRN Reason: SALINE FLUSH Last Admin: 08/08/20 21:40 Dose: 20 ml Documented by: Spironolactone (Spironolactone 25 Mg Tablet) 25 mg PO DAILY [facility] Last Admin: 08/09/20 09:40 Dose: 25 mg Documented by: Tamsulosin HCl (Tamsulosin Hcl 0.4 Mg Capsule) 0.4 mg PO DAILY@0830 [facility] Last Admin: 08/09/20 09:40 Dose: 0.4 mg Documented by: STROKE Vital Signs/Narrative: Vital Signs Temp Pulse Resp BP Pulse Ox 08/09/20 15:54 36.6 C 61 15 105/53 L 98 08/09/20 15:33 62 08/09/20 13:08 36.8 C 60 15 86/46 L 97 08/09/20 12:45 61 16 08/09/20 12:34 61 Assessment/Plan Patient seen and examined independently. Data reviewed. I agree with the above note by the physician assistant branch operations manager. 1. Wide-complex tachycardia: * Status post cardioversion: * Currently rate controlled * Electrolytes were unremarkable. * Continue with carvedilol and amiodarone. * Cardiology on consultation. * interrogation showed aflutter * may need EP eval in the future. 2. Chronic atrial fibrillation: * On carvedilol and amiodarone. * resume Rivaroxaban 3. Cardiomyopathy: * EF of 15%. On furosemide, spironolactone. No JUANITA nor angiotensin receptor maximiliano given chronic kidney disease. 4. Elevated troponin: * Likely demand ischemic due to tachycardia. * Troponin I from 0.07-0.125. * C stents patent and no PCI needed. * Med mgmt: increase isordil 5. Chronic kidney disease age 1: * Creatinine around baseline. * monitor closely post cath 6. VTE prophylaxis: SCDs 7. Advanced care planning: Discussed with the patient. Patient wishes to be DNR Comfort Care arrest no intubation. Inpatient E&M: [id number] Subs Hosp L2
--- NOTE | 2020-08-09 14:33 | PN.CARD_ITS ---
Subjectve: The patient underwent diagnostic cardiac catheterization earlier this day. He did not require additional PCI. Objective: Vital Signs Temp Pulse Resp BP Pulse Ox 98.3 F 60 15 86/46 L 97 08/09/20 13:08 08/09/20 13:08 08/09/20 13:08 08/09/20 13:08 08/09/20 13:08 Oxygen Flow Rate (L/min) 2 Oxygen Delivery Method Nasal Cannula Weight: 214 lb 11.684 oz Body Mass Index (BMI) 33.6 Intake and Output for Last 24 Hours 08/07/20 08/08/20 08/09/20 23:59 23:59 23:59 Intake Total 240 / 440 620 / 920 1065 / 1065 Output Total 425 / 925 2225 / 2975 1550 / 1550 Balance -185 / -485 -1605 / -2055 -485 / -485 General: Awake, Alert, Oriented x 3, Cooperative, No Acute Distress HEENT: Atraumatic, Normocephalic, PERRL, EOMI, Sclera Non Icteric Neck: Supple, Good ROM, No JVD Lungs: Diminished Aubrey Bases Cardiovascular: Regular Rhythm, Normal S1, Normal S2 Abdomen: Bowel Sounds Present, Soft Extremities: No edema Neurological: No Focal Motor or Sensory Deficit Psych/Mental Status: Appropriate 08/09/20 05:20: Sodium 139, Potassium 3.7, Chloride 98, Carbon Dioxide 38.0 H, Anion Gap 3 L, BUN 53 H, Creatinine 1.86 H, Est GFR (MDRD) Af Amer 46 L, Est GFR (MDRD) Non-Af 38 L, BUN/Creatinine Ratio 28.5 H, Glucose 89, Calcium 9.3 Rhythm: Electronic atrial paced rhythm Cardiac Cath: CONCLUSIONS [place] Multivessel CAD LAD: stent: patent LCX: stent: patent Left to Left collateral flow Left to Right collateral flow RECOMMENDATIONS Risk factor modification Medical therapy DESCRIPTION OF PROCEDURE The patient arrived to the procedure lab. The risks and benefits of the procedure as well as a full description of our services here and current unavailability of surgical backup were fully explained to the patient and/or their significant other prior to the catheterization. The Timeout was completed, verifying the correct patient and procedure. The patient's procedural site was prepped and draped in the usual fashion. Local anesthetic was given subcutaneously to right brachial region with Lidocaine 2%. Using a modified Seldinger technique, arterial access was obtained via the right brachial artery, a 6Fr sheath was inserted. Left Coronary Artery selective angiography was performed in multiple views using a 5 Fr. 4.0 [place] catheter. Left Coronary Artery selective angiography was performed in multiple views using a 5 Fr. JL3.5 catheter. Right Coronary Artery selective angiography was then performed in multiple views using a 5 Fr. JR 4 catheter.The arterial sheath was pulled and manual compression applied until hemostasis is achieved. CORONARY ANGIOGRAPHY DOMINANCE: Right Dominant LEFT HEART ASSESSMENT Left Ventricular Ejection Fraction: Not assessed LEFT MAIN: very short bifurcating vessel (almost separate ostia to the LAD / LCX), Angiographically normal LEFT ANTERIOR DESCENDING ARTERY: PROX LAD: Previously placed stent is patent MID LAD: Mild luminal irregularities DISTAL LAD: Mild luminal irregularities SEPTAL: : bifurcating vessel: ostial: 50 - 75 % Stenosis CIRCUMFLEX ARTERY: PROX CIRC: Previously placed stent is patent, Mild luminal irregularities MID CIRC: Mild luminal irregularities OM 1: Ostial - is occluded: appears to fill late and partially from left to left collateral flow RIGHT CORONARY ARTERY: distal RCA system: fills late and partially from left to right collateral flow PROX RCA: is occluded COLLATERAL FLOW: Collateral flow from Left to Left Collateral flow from Left to Right Medical Necessity - Tobacco Use Smoking Status: Former smoker Assessment/Plan 1. Wide-complex tachycardia The patient presented with an episode of wide-complex tachycardia. He was deemed hemodynamically unstable. He underwent synchronized biphasic DC cardioversion. He has subsequently had ICD interrogation. Based upon the ICD interrogation the report states it appeared his underlying rhythm was in atrial flutter with subsequent conversion status post a synchronized biphasic DC cardioversion. The ICD interrogation also notes that he has had episodes on 08-02-2019 that appeared compatible with ventricular tachycardia with ATP P pacing x2 converting to underlying atrial fibrillation. It also notes he has had VT in the past with appropriate ICD shocks. The present time the patient is being monitored. He will continue medical therapy. This may include an increase in his amiodarone therapy in attempt to assist with his underlying atrial and ventricular dysrhythmias. Also he may need to be considered for future EP consultation as to whether or not he is a candidate for any other form of ablative therapy of his atrial dysrhythmia or potentially his AV node. 2. Hemodynamic instability The patient was reported as being hemodynamically unstable with his wide-complex dysrhythmia. He underwent synchronized biphasic DC cardioversion in the emergency department. He had return to his underlying rhythm with improvement in his hemodynamics. His hemodynamics are being monitored. His medications can be adjusted as needed based upon his blood pressure response. 3. CAD status post PCI He has been further evaluated with a diagnostic cardiac catheterization. The results are as noted. He did not require additional PCI. Will continue medical therapy. 4. Ischemic mediated cardiomyopathy He does have an ischemic mediated cardiomyopathy. His overall LV systolic function/LVEF appears similar to previous studies. He will need to continue medical management. He will continue evaluation based upon this event as deemed appropriate. 5. Chronic systolic mediated CHF At the moment the patient does not appear to have acute on chronic systolic mediated symptoms. He will need to continue his medical therapy. His overall LVEF remains low. 6. Atrial fibrillation The patient has remained in atrial fibrillation. He will need continued rate control therapy and anticoagulant therapy. Again depending upon his clinical course he may need consideration for repeat EP input regarding his atrial dysrhythmias. 7. Ventricular tachycardia It appears the patient has also had episodes of ventricular tachycardia which was required ATP pacing or defibrillations. He will need continued medical management. He may need additional noninvasive or invasive evaluation. 8. ICD The patient does have an ICD in place. It was interrogated today. It does appear to be functioning appropriately. 9. Hyperlipidemia He will continue risk factor evaluation and care as deemed appropriate. 10. Hypertension His blood pressure will be followed with adjustment of his medications as deemed appropriate taken into consideration his renal insufficiency. 11. PAD He has a history of PAD as previously noted including lower extremity revascularization and renal artery PCI. This would have to be taken into consideration if he requires further invasive evaluation and care. 12. COPD The patient reportedly has a history of COPD. He will need continued medical therapy by his primary care physicians, etc. 13. Chronic renal insufficiency He has a history of chronic renal insufficiency. He is receiving post cardiac catheterization IV fluids-gently. He will have follow-up BMP. 14. Chronic anticoagulation The patient is chronically anticoagulated. His anticoagulation was placed on hold for his cardiac catheterization. As long as he is stable from a cardiac catheterization site that he should be able to resume his anticoagulant therapy on 08-10-2020. Overall, at the present time, the patient will continue conservative medical man agement. His medications will be adjusted as needed. He will be asked to have continued outpatient follow-up and depending upon his clinical course potential EP consultation. Comment: The patient's case has been discussed and reviewed with the patient. This note was generated using a voice recognition system and there may be incorrect words, spelling or punctuation that were not noted when reviewing the office note prior to saving.
[2020-08-09] MEDS: Ezetimibe 10 MG Tablet PO (21:44)
[2020-08-09] MEDS: Fenofibrate 145 MG Tablet PO (21:45)
[2020-08-09] MEDS: Atorvastatin Calcium 80 MG Tablet PO (21:45)
[2020-08-10] VITALS (8 sets, daily range): BP systolic 94–158; BP diastolic 43–55; PULSE 60–78; RESP 16–18; TEMP 36.8–36.9; O2SAT 91–98
[2020-08-10] MEDS: Levothyroxine 112 MCG Tablet PO (05:23)
--- NOTE | 2020-08-10 05:34 | PCM.PN.BLA ---
Progress Note Overnight because of low blood pressure patient's Imdur was held but carvedilol was given. This a.m. blood pressure remains low. Will de-escalate to a previous home dose of 5 mg 3 times daily. Of note Imdur was escalated on this admission. STROKE Vital Signs/Narrative: Vital Signs Temp Pulse Resp BP Pulse Ox 08/10/20 05:20 98.4 F 72 18 98/48 L 96 08/10/20 03:05 98.5 F 78 18 94/50 L 93 08/10/20 03:00 63
[2020-08-10] MEDS: Isosorbide DN 10 MG Tablet 5 MG PO (05:50)
[2020-08-10 06:03] LABS: Absolute Lymphocyte Count 0.68 X10^3/uL (0.83-4.51); Absolute Neutrophil Count 3.8 X10^3/uL (2.0-7.7); Basophil# 0.01 X10^3/uL; Basophil% 0.2 % (0-1); Eosinophil# 0.03 X10^3/uL; Eosinophils% 0.6 % (0-5); Hematocrit 36.9 % (40-54); Hemoglobin 11.6 g/dL (13.0-16.5); Lymphocyte # 0.68 X10^3/ul (4.0); Lymphocyte % 13.7 % (19-41); Mean Corp Hgb Conc 31.4 g/dL (32-36); Mean Corpuscular Hgb 31.7 pg (27.0-32.0); Mean Corpuscular Volume 100.8 fL (80-94); Monocyte# 0.42 X10^3/uL; Monocyte% 8.5 % (0-10); NRBC Flagged by Analyzer 0 % (0-5); Neutrophil # 3.77 X10^3/uL (2.7-7.7); Neutrophil % 76.2 % (47-70); Platelet Count 107 K/mm3 (150-450); RBC Distribution Width CV 13.4 % (11.6-14.6); RBC Distribution Width SD 49.8 fl (35.1-43.9); Red Blood Count 3.66 M/mm3 (4.6-6.2)
[2020-08-10 06:23] LABS: Anion Gap 1 (5-15); BUN 47 mg/dL (7-18); BUN/Creat Ratio 26.1 RATIO (10-20); Calcium,Total 9.1 mg/dL (8.5-10.1); Chloride 98 mmol/L (98-107); EST Glomerular Filtration Rate 40 mL/min (>60); Est Glom Filt Rate - Afr Amer 48 mL/min (>60); Estimated Creatinine Clearance 35.19 ml/min; Glucose 83 mg/dL (74-106); Potassium 3.8 mmol/L (3.5-5.1); Sodium Level 138 mmol/L (136-145)
[2020-08-10] MEDS: Budesonide Respules 0.5 MG/2 ML AMPUL.NEB. INHALATION (07:06)
[2020-08-10] MEDS: Ipratropium/Albuterol Sulfate 3 ML AMPUL.NEB INHALATION (07:06)
[2020-08-10] MEDS: Aspirin E.C. 81 MG Tablet PO (09:24)
[2020-08-10] MEDS: Tamsulosin HCl 0.4 MG Capsule PO (09:25)
[2020-08-10] MEDS: Amiodarone 200 MG Tablet PO (09:25)
[2020-08-10] MEDS: Spironolactone 25 MG Tablet PO (09:25)
[2020-08-10] MEDS: Carvedilol 25 MG Tablet PO (09:25)
[2020-08-10] MEDS: Furosemide 20 MG Tablet 60 MG PO (09:26)
[2020-08-10] MEDS: Calcitriol 0.25 MCG Capsule PO (09:26)
--- NOTE | 2020-08-10 10:14 | DCINST_ITS ---
- Discharge Diagnoses Current Active Problems: Current Active and Chronic Problems (Last Reviewed 08/07/20 @ 15:[address] Simeon Kwong, DO) Wide-complex tachycardia (Acute) Hemodynamic instability (Acute) History of ischemic cardiomyopathy (Chronic) Hypoxemic respiratory failure, chronic (Chronic) CAD (coronary artery disease) (Chronic) Renal insufficiency (Chronic) Ventricular tachycardia (Chronic) History of stent insertion of renal artery (Chronic 03/14/08) Stented coronary artery (Chronic 12/27/13) 11/29/2007: 3.5 X 13 Cypher Sirolimus IRASEMA to proximal LAD, 3.0 X 18 Cyper Sirolimus IRASEMA to proximal CX per Dr. Ruiz @ [facility]; 03/12/2009: Chronic 100% stenosis of proximal RCA with moderate collaterals from LAD. Previous stents patent per Dr. Byrd @ [facility]. 12/27/2013:85% in-stent restenosis of proximal LCX. Flextome cutting baloon and Promus Element Plus RX IRASEMA 3.0 X [address] Mcgregor @ [facility]. Status post aortobifemoral bypass surgery (Chronic 04/25/01) Per Dr. 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 no chronic medications Hypertension (Chronic) Urine retention (Chronic) BPH (benign prostatic hypertrophy) (Chronic) Hypothyroidism (Chronic) Former smoker, stopped smoking in distant past (Chronic) Quit in 1999 AICD (automatic cardioverter/defibrillator) present (Chronic) Gen change per Dr. Matt 11/03/18 @ [facility] Pacemaker (Chronic) Diverticulosis (Chronic) Left renal artery stenosis (Chronic) Stent done in February You will use the following diet at home:: Cardiac Your food should be the consistency of: Regular Your liquids should be the consistency of: Regular/Thin Discharge Activity: Return to Normal Activity Additional Instructions: You will need a BMP (blood test) in one week, call your primary care physician to arrange this. Allergies/Adverse Reactions: Allergies No Known Allergies Allergy (Verified 08/07/20 10:21) Medications to take at Discharge Albuterol IH (ProAir) [Proair Hfa] 1 - 2 puff INHALATION Q4H PRN PRN 12/01/17 Aspirin E.C. [Ecotrin] 81 mg PO DAILY@0800 12/01/17 Budesonide/Formoterol 160/4.5 [Symbicort 160/4.5 Mcg Inhaler (SP)] 2 puff INHALATION BID 12/01/17 Levothyroxine Sodium 112 mcg PO DAILY 12/01/17 Tamsulosin HCl [Flomax] 0.4 mg PO DAILY 12/01/17 Tiotropium [place] [Spiriva Respimat] 2 puff INHALATION DAILY 12/01/17 Ferrous Sulfate 325 mg PO TIDCM #1 tab 12/04/17 calcitriol 0.25 mcg capsule 0.25 mcg PO DAILY cap 08/11/18 potassium chloride 10 mEq tablet,extended release(part/cryst) 10 meq PO DAILY tab 09/14/19 ezetimibe 10 mg tablet 10 mg PO QHS #90 tab 10/11/19 fenofibrate nanocrystallized 145 mg tablet 145 mg PO QHS #90 tab 10/11/19 rosuvastatin 40 mg tablet 40 mg PO QHS #90 tab 10/11/19 furosemide 20 mg tablet 60 mg PO BID #180 tab 10/12/19 isosorbide dinitrate 5 mg tablet 5 mg PO TID #270 tab 10/24/19 spironolactone 25 mg tablet 25 mg PO DAILY #90 tab 12/29/19 carvedilol 25 mg tablet 25 mg PO BID #180 tab 05/10/20 rivaroxaban 20 mg tablet 20 mg PO DAILY #30 tab 05/13/20 Primary Care Physician: Tyrone Bhakta [Primary Care Provider] - Please follow up with your Primary Care Physician in: 1-2 weeks Test Results: Test results from this visit will be discussed in further detail at your follow- up appointment, if applicable. Please Follow Up With: Eros Kumar MD - Cardiology When: as directed Please Follow Up With: [facility] When: 2 weeks Proposed Discharge Date: 08/10/20
--- NOTE | 2020-08-10 11:56 | DS.PCM_ITS ---
<Ky Richardson - Last Filed: 08/10/20 11:56> Discharge Date and Diagnosis - Problem List Patient Problems: Active and Suspected Problems (Last Reviewed 08/07/20 @ 15:[address] Simeon Kwong DO) Wide-complex tachycardia (Acute) Hemodynamic instability (Acute) Date of Admission: 08/07/20 Date of Discharge: 08/10/20 - Primary Discharge Diagnosis Acute Problems: Active Problems (Last Reviewed 08/07/20 @ 15:[address] Simeon Kwong DO) Wide-complex tachycardia (Acute) s/p cardioversion Afib/Flutter NSTEMI CAD CKDIV - Secondary Discharge Diagnosis Chronic Problems: Chronic Problems (Last Reviewed 08/07/20 @ 15:[address] Simeon Kwong DO) History of ischemic cardiomyopathy (Chronic) Hypoxemic respiratory failure, chronic (Chronic) CAD (coronary artery disease) (Chronic) Renal insufficiency (Chronic) Ventricular tachycardia (Chronic) History of stent insertion of renal artery (Chronic 03/14/08) Stented coronary artery (Chronic 12/27/13) 11/29/2007: 3.5 X 13 Cypher Sirolimus IRASEMA to proximal LAD, 3.0 X 18 Cyper Sirolimus IRASEMA to proximal CX per Dr. Ruiz @ [facility]; 03/12/2009: Chronic 100% stenosis of proximal RCA with moderate collaterals from LAD. Previous stents patent per Dr. Byrd @ [facility]. 12/27/2013:85% in-stent restenosis of proximal LCX. Flextome cutting baloon and Promus Element Plus RX IRASEMA 3.0 X [address] Mcgregor @ [facility]. Status post aortobifemoral bypass surgery (Chronic 04/25/01) Per Dr. Rm Bermudez @ [facility]: using 16 X 8 hemashield graft Atherosclerotic heart disease of [place] coronary artery without angina pectoris (Chronic) Chronic systolic (congestive) heart failure (Chronic) emt intermediate (current) use of anticoagulants (Chronic) History of stent insertion of renal artery (Chronic) Anemia (Chronic) Bilateral atelectasis (Chronic) Respiratory failure with hypoxia and hypercapnia (Chronic) Peripheral arterial occlusive disease (Chronic) Pleural effusion (Chronic) Ischemic cardiomyopathy (Chronic) EF 20% on 10/27/16 Chronic anticoagulation (Chronic) On warfarin Pulmonary hypertension (Chronic) Atrial fibrillation (Chronic) Hyperlipemia (Chronic) COPD (chronic obstructive pulmonary disease) (Chronic) mild. no chronic medications Hypertension (Chronic) Urine retention (Chronic) BPH (benign prostatic hypertrophy) (Chronic) Hypothyroidism (Chronic) Former smoker, stopped smoking in distant past (Chronic) Quit in 1999 AICD (automatic cardioverter/defibrillator) present (Chronic) Gen change per Dr. Matt 11/03/18 @ [facility] Pacemaker (Chronic) Diverticulosis (Chronic) Left renal artery stenosis (Chronic) Stent done in February Hospital Course and Treatment Imaging Results: RAD/Chest 1 View (Portable) IMPRESSION: Moderate cardiomegaly. 2D TTE: Interpretation Summary The study was technically difficult. Severely dilated left ventricle. Severe segmental systolic dysfunction (see wall motion). The estimated ejection fraction is 15 %. The left atrium is severely enlarged. The right atrium is mildly enlarged. Mild papillary muscle dysfunction of the mitral valve. Mild-Moderate (1-2+) mitral valve insufficiency. Mild tricuspid valve insufficiency. Mild focal aortic valve calcification. Mild (1+) pulmonic valve insufficiency. Mildly dilated aortic root. Trivial pericardial effusion. There are no echocardiographic indications of cardiac tamponade. Right ventricular systolic pressure estimated to be 50 mmHg. There is evidence of diastolic dysfunction. Stres test: Impression: 1. Rest and stress SPECT her nuclear imaging demonstrate myocardial perfusion changes compatible with an area of previous myocardial injury/infarction involving portions of the inferior and lateral segments with post stress myocardial perfusion changes appearing compatible with akira-infarct related myocardial ischemia in portions of the distal inferior/inferoapical and distal lateral/lateral apical segments. 2. The gated Cardiolite study reports an LVEF of 17%. Left heart cath report: CONCLUSIONS [place] Multivessel CAD LAD: stent: patent LCX: stent: patent Left to Left collateral flow Left to Right collateral flow RECOMMENDATIONS Risk factor modification Medical therapy [facility]: None Procedures: 2-D Echocardiogram, Cardiac catheterization, Cardioversion, Stress test Summary of Care Provided: Hospital Course: The patient is a 69 year old M with pmhx as above notably ischemic CM with AICD in place, CAD with prior stents and CABG, systolic CHF, chronic hypoxic respiratory failure, Afib, renal artery stenosis, COPD, pulmonary HTN, CKDIII-IV, who presented to the ER with c/o SOB. Pt was found to have a wide complex tachycardia and subsequently underwent a successful cardioversion. AICD interrogation revealed a background rhythm of afib/flutter and episodes of Vtach with shocks administered. The patient had elevated troponins as well. He was admitted to PCU and cardiology was consulted. His amiodarone was incresed. He had a stress test c/w inducible ischemia. He was taken for a heart catheterization, report as above, no intervention was indicated, and medical therapy was recommended. Initially his isordil was increased however his BP did not tolerate this and it was reduced to his home dose. He remained asymptomatic and stable overnight. His renal function was trended following his heart cath and remained stable. He was discharged home in stable condition and will need close follow up with his drilling foreman as directed, automatic lathe operator in 2 weeks, and PCP in 1-2 weeks. He should have a BMP in 1 week. This patient was seen by Ky Richardson PA-C under the supervision of Dr. Kwong. [] Patient Problems: Active and Suspected Problems (Last Reviewed 08/07/20 @ 15:[address] Simeon Kwong, DO) Wide-complex tachycardia (Acute) Hemodynamic instability (Acute) - Physical Exam Vitals/I&O's: Vital Signs Temp Pulse Resp BP Pulse Ox 98.2 F 60 16 130/43 H 98 08/10/20 09:05 08/10/20 11:36 08/10/20 09:05 08/10/20 09:05 08/10/20 09:05 Oxygen Flow Rate (L/min) 2 Oxygen Delivery Method Nasal Cannula Weight: 214 lb 11.684 oz Body Mass Index (BMI) 33.6 Intake and Output for Last 24 Hours 08/08/20 08/09/20 08/10/20 23:59 23:59 23:59 Intake Total 620 / 920 1961.92 / 2141.92 280 / 280 Output Total 2225 / 2975 2000 / 2400 900 / 900 Balance -1605 / -2055 -38.08 / -258.08 -620 / -620 General: Alert, Oriented x3, Cooperative HEENT: Atraumatic, PERRLA, EOMI, Normocephalic Neck: Supple, No JVD, Negative Carotid Bruits Lungs: Clear to auscultation, Normal air movement Cardiovascular: Regular rate, No murmurs Abdomen: Bowel Sounds Present, Soft, Non Tender Extremities: No edema, Capillary Refill Less than 3 Seconds Skin: No rashes, No breakdown Musculoskeletal: No Tenderness to Palpation of Joints or Extremities Neurological: Cranial nerves II-XII grossly intact Psych/Mental Status: Normal Affect, Appropriate, Alert and oriented to time, place, person, mood and affect Laboratory Results 08/07/20 10:26: Amiodarone 1.5, Noramiodarone 0.9 L 08/10/20 05:22: WBC 5.0, RBC 3.66 L, Hgb 11.6 L, Hct 36.9 L, MCV 100.8 H, MCH 31.7, MCHC 31.4 L, RDW Std Deviation 49.8 H, RDW Coeff of Bhavna 13.4, Plt Count 107 L, MPV 11.0, Immature Gran % (Auto) 0.800, Neut % (Auto) 76.2 H, Lymph % (Auto) 13.7 L, Stanley % (Auto) 8.5, Eos % (Auto) 0.6, Baso % (Auto) 0.2, Absolute Neuts (auto) 3.8, Absolute Lymphs (auto) 0.68 L, Nucleated RBC % 0 08/10/20 05:22: Sodium 138, Potassium 3.8, Chloride 98, Carbon Dioxide 39.0 H, Anion Gap 1 L, BUN 47 H, Creatinine 1.80 H, Estim Creat Clear Calc 35.19, Est GFR (MDRD) Af Amer 48 L, Est GFR (MDRD) Non-Af 40 L, BUN/Creatinine Ratio 26.1 H , Glucose 83, Calcium 9.1 Current Medications Acetaminophen (Acetaminophen 325 Mg Tablet) 650 mg PO Q6H PRN PRN PRN Reason: Pain Score 1-10/Temp > 100.7 F Albuterol Sulfate (Albuterol 2.5 Mg/3 Ml Vial.Neb.) 2.5 mg INHALATION Q4H PRN PRN Reason: Bronchodialation Albuterol/Ipratropium (Ipratropium/Albuterol Sulfate 3 Ml Ampul.Neb) 3 ml INHALATION Q6HWA.RT JAMES Last Admin: 08/10/20 07:06 Dose: 3 ml Documented by: Amiodarone HCl (Amiodarone 200 Mg Tablet) 200 mg PO BID [facility] Last Admin: 08/10/20 09:25 Dose: 200 mg Documented by: Aspirin (Aspirin E.C. 81 Mg Tablet) 81 mg PO DAILY@0800 [facility] Last Admin: 08/10/20 09:24 Dose: 81 mg Documented by: Atorvastatin Calcium (Atorvastatin Calcium 80 Mg Tablet) 80 mg PO QHS [facility] Last Admin: 08/09/20 21:45 Dose: 80 mg Documented by: Budesonide (Budesonide Respules 0.5 Mg/2 Ml Ampul.Neb.) 0.5 mg INHALATION Q12H.RT [facility] Last Admin: 08/10/20 07:06 Dose: 0.5 mg Documented by: Calcitriol (Calcitriol 0.25 Mcg Capsule) 0.25 mcg PO DAILY [facility] Last Admin: 08/10/20 09:26 Dose: 0.25 mcg Documented by: Carvedilol (Carvedilol 25 Mg Tablet) 25 mg PO BID [facility] Last Admin: 08/10/20 09:25 Dose: 25 mg Documented by: Ezetimibe (Ezetimibe 10 Mg Tablet) 10 mg PO QHS [facility] Last Admin: 08/09/20 21:44 Dose: 10 mg Documented by: Fenofibrate (Fenofibrate 145 Mg Tablet) 145 mg PO QHS [facility] Last Admin: 08/09/20 21:45 Dose: 145 mg Documented by: Ferrous Sulfate (Ferrous Sulfate 325 Mg Tablet) 325 mg PO TID@1200,1700,2200 [facility] Last Admin: 08/09/20 21:44 Dose: 325 mg Documented by: Furosemide (Furosemide 20 Mg Tablet) 60 mg PO BIDLX [facility] Last Admin: 08/10/20 09:26 Dose: 60 mg Documented by: Heparin Sodium (Beef Lung) (Heparin Lock 500 Unit/5 Ml In 10 Ml Syringe) 500 unit IV UD PRN PRN Reason: HEPARIN FLUSH Sodium Chloride () 250 mls @ 15 mls/hr IV .[id number] PRN PRN Reason: Saline Flush Sodium Chloride () 250 mls @ 15 mls/hr IV .[id number] PRN PRN Reason: Additional IVPB Infusion Sodium Chloride () 1,000 mls @ 15 mls/hr IV .Q48H [facility] Last Admin: 08/09/20 13:17 Dose: Not Given Documented by: Isosorbide Dinitrate (Isosorbide Dn 10 Mg Tablet) 5 mg PO TID [facility] Last Admin: 08/10/20 05:50 Dose: 5 mg Documented by: Labetalol HCl (Labetalol (Prefilled) 20 Mg/4 Ml) 5 mg IV X1 PRN PRN Reason: SBP > 160 prior to sheath pull Stop: 08/11/20 08:24 Levothyroxine Sodium (Levothyroxine 112 Mcg Tablet) 112 mcg PO DAILY@0600 [facility] Last Admin: 08/10/20 05:23 Dose: 112 mcg Documented by: Potassium Chloride (Potassium Chloride 10 Meq Tablet) 10 meq PO DAILYCM [facility] Last Admin: 08/10/20 09:24 Dose: 10 meq Documented by: Rivaroxaban (Rivaroxaban 20 Mg Tablet) 20 mg PO DINNER [facility] Last Admin: 08/09/20 17:18 Dose: Not Given Documented by: Sodium Chloride (0.9% Saline Lock 10 Ml Syringe) 10 - 40 ml IV UD PRN PRN Reason: SALINE FLUSH Last Admin: 08/08/20 21:40 Dose: 20 ml Documented by: Spironolactone (Spironolactone 25 Mg Tablet) 25 mg PO DAILY [facility] Last Admin: 08/10/20 09:25 Dose: 25 mg Documented by: Tamsulosin HCl (Tamsulosin Hcl 0.4 Mg Capsule) 0.4 mg PO DAILY@0830 [facility] Last Admin: 08/10/20 09:25 Dose: 0.4 mg Documented by: Discharge Diet: Low fat/ Low Cholesterol, 2000 mg Sodium Diet Discharge Activity: Return to Normal Activity Home Medications: Medications to take at Discharge Albuterol IH (ProAir) [Proair Hfa] 1 - 2 puff INHALATION Q4H PRN PRN 12/01/17 Aspirin E.C. [Ecotrin] 81 mg PO DAILY@0800 12/01/17 Budesonide/Formoterol 160/4.5 [Symbicort 160/4.5 Mcg Inhaler (SP)] 2 puff INHALATION BID 12/01/17 Levothyroxine Sodium 112 mcg PO DAILY 12/01/17 Tamsulosin HCl [Flomax] 0.4 mg PO DAILY 12/01/17 Tiotropium Tyler [Spiriva Respimat] 2 puff INHALATION DAILY 12/01/17 Ferrous Sulfate 325 mg PO TIDCM #1 tab 12/04/17 calcitriol 0.25 mcg capsule 0.25 mcg PO DAILY cap 08/11/18 potassium chloride 10 mEq tablet,extended release(part/cryst) 10 meq PO DAILY tab 09/14/19 ezetimibe 10 mg tablet 10 mg PO QHS #90 tab 10/11/19 fenofibrate nanocrystallized 145 mg tablet 145 mg PO QHS #90 tab 10/11/19 rosuvastatin 40 mg tablet 40 mg PO QHS #90 tab 10/11/19 furosemide 20 mg tablet 60 mg PO BID #180 tab 10/12/19 isosorbide dinitrate 5 mg tablet 5 mg PO TID #270 tab 10/24/19 spironolactone 25 mg tablet 25 mg PO DAILY #90 tab 12/29/19 carvedilol 25 mg tablet 25 mg PO BID #180 tab 05/10/20 rivaroxaban 20 mg tablet 20 mg PO DAILY #30 tab 05/13/20 Amiodarone HCl [Cordarone] 200 mg PO BID #60 tab 08/10/20 Following Prescriptions Were Given to Patient: Amiodarone HCl [Cordarone] 200 mg PO BID #60 tab Transmission Status: Received by [employer] [facility] Primary Care Physician: Tyrone Bhakta [Primary Care Provider] - Please follow up with your Primary Care Physician in: 1-2 weeks Please Follow Up With: Eros Kumar MD When: as directed Please Follow Up With: Giuseppe Alexander MD When: 2 weeks Please Follow Up With: Tyrone Bhakta MD Disposition: Home Minutes spent on discharge:: 35 Medical Necessity - Tobacco Use Smoking Status: Former smoker Meaningful Use Info Meaningful Use Diagnoses (Choose all that apply): None applicable <Simeon Kwong - Last Filed: 08/10/20 12:56> Discharge Date and Diagnosis - Primary Discharge Diagnosis Acute Problems: Active Problems (Last Reviewed 08/07/20 @ 15:[address] Simeon Kwong DO) Wide-complex tachycardia (Acute) Hemodynamic instability (Acute) - Secondary Discharge Diagnosis Chronic Problems: Chronic Problems (Last Reviewed 08/07/20 @ 15:[address] Simeon Kwong DO) History of ischemic cardiomyopathy (Chronic) Hypoxemic respiratory failure, chronic (Chronic) CAD (coronary artery disease) (Chronic) Renal insufficiency (Chronic) Ventricular tachycardia (Chronic) History of stent insertion of renal artery (Chronic 03/14/08) Stented coronary artery (Chronic 12/27/13) 11/29/2007: 3.5 X 13 Cypher Sirolimus IRASEMA to proximal LAD, 3.0 X 18 Cyper Sirolimus IRASEMA to proximal CX per Dr. Ruiz @ [facility]; 03/12/2009: Chronic 100% stenosis of proximal RCA with moderate collaterals from LAD. Previous stents patent per Dr. Byrd @ [facility]. 12/27/2013:85% in-stent restenosis of proximal LCX. Flextome cutting baloon and Promus Element Plus RX IRASEMA 3.0 X [address] Mcgregor @ [facility]. Status post aortobifemoral bypass surgery (Chronic 04/25/01) Per Dr. Rm Bermudez @ [facility]: using 16 X 8 hemashield graft Atherosclerotic heart disease of [place] coronary artery without angina pectoris (Chronic) Chronic systolic (congestive) heart failure (Chronic) emt intermediate (current) use of anticoagulants (Chronic) History of stent insertion of renal artery (Chronic) Anemia (Chronic) Bilateral atelectasis (Chronic) Respiratory failure with hypoxia and hypercapnia (Chronic) Peripheral arterial occlusive disease (Chronic) Pleural effusion (Chronic) Ischemic cardiomyopathy (Chronic) EF 20% on 10/27/16 Chronic anticoagulation (Chronic) On warfarin Pulmonary hypertension (Chronic) Atrial fibrillation (Chronic) Hyperlipemia (Chronic) COPD (chronic obstructive pulmonary disease) (Chronic) mild. no chronic medications Hypertension (Chronic) Urine retention (Chronic) BPH (benign prostatic hypertrophy) (Chronic) Hypothyroidism (Chronic) Former smoker, stopped smoking in distant past (Chronic) Quit in 1999 AICD (automatic cardioverter/defibrillator) present (Chronic) Gen change per Dr. Matt 11/03/18 @ [facility] Pacemaker (Chronic) Diverticulosis (Chronic) Left renal artery stenosis (Chronic) Stent done in February Hospital Course and Treatment Operations: None Procedures: 2-D Echocardiogram, Cardiac catheterization, Cardioversion, Stress test Summary of Care Provided: The patient is a 69 year old M presents with shortness of breath. Patient seen and examined independently. Data reviewed. I agree with the above note by the physician magistrate assistant. 1. Wide-complex tachycardia: * Status post cardioversion: * Currently rate controlled * Electrolytes were unremarkable. * Continue with carvedilol and amiodarone. * Cardiology on consultation. * interrogation showed aflutter * may need EP eval in the future. 2. Chronic atrial fibrillation: * On carvedilol and amiodarone. * anticoagulation with Rivaroxaban 3. Cardiomyopathy: * EF of 15%. On furosemide, spironolactone. No JUANITA nor angiotensin receptor maximiliano given chronic kidney disease. 4. Elevated troponin: * Likely demand ischemic due to tachycardia. * Troponin I from 0.07-0.125. * LHC stents patent and no PCI needed. * Med mgmt: increase isordil 5. Chronic kidney disease age 1: * Creatinine around baseline. * monitor closely post cath [] - Physical Exam Vitals/I&O's: Vital Signs Temp Pulse Resp BP Pulse Ox 36.9 C 64 16 158/55 H 98 08/10/20 12:25 08/10/20 12:25 08/10/20 12:25 08/10/20 12:25 08/10/20 12:25 Oxygen Flow Rate (L/min) 2 Oxygen Delivery Method Nasal Cannula Weight: 97.4 kg Body Mass Index (BMI) 33.6 Intake and Output for Last 24 Hours 08/08/20 08/09/20 08/10/20 23:59 23:59 23:59 Intake Total 620 / 920 1961.92 / 2141.92 760 / 760 Output Total 2225 / 2975 2000 / 2400 1300 / 1300 Balance -1605 / -2055 -38.08 / -258.08 -540 / -540 General: Alert, Cooperative HEENT: Atraumatic, Normocephalic Neck: Supple, Negative Carotid Bruits Lungs: Clear to auscultation, Normal air movement, No rhonchi, No wheeze Cardiovascular: Regular rate, Regular Rhythm, Normal S1, Normal S2, No murmurs Abdomen: Bowel Sounds Present, Soft, Non Tender, Non-Distended Extremities: No edema, No Calf Tenderness Skin: No rashes, No breakdown Laboratory Results 08/07/20 10:26: Amiodarone 1.5, Noramiodarone 0.9 L 08/10/20 05:22: WBC 5.0, RBC 3.66 L, Hgb 11.6 L, Hct 36.9 L, MCV 100.8 H, MCH 31.7, MCHC 31.4 L, RDW Std Deviation 49.8 H, RDW Coeff of Bhavna 13.4, Plt Count 107 L, MPV 11.0, Immature Gran % (Auto) 0.800, Neut % (Auto) 76.2 H, Lymph % (Auto) 13.7 L, Stanley % (Auto) 8.5, Eos % (Auto) 0.6, Baso % (Auto) 0.2, Absolute Neuts (auto) 3.8, Absolute Lymphs (auto) 0.68 L, Nucleated RBC % 0 08/10/20 05:22: Sodium 138, Potassium 3.8, Chloride 98, Carbon Dioxide 39.0 H, Anion Gap 1 L, BUN 47 H, Creatinine 1.80 H, Estim Creat Clear Calc 35.19, Est GFR (MDRD) Af Amer 48 L, Est GFR (MDRD) Non-Af 40 L, BUN/Creatinine Ratio 26.1 H , Glucose 83, Calcium 9.1 Current Medications Acetaminophen (Acetaminophen 325 Mg Tablet) 650 mg PO Q6H PRN PRN PRN Reason: Pain Score 1-10/Temp > 100.7 F Albuterol Sulfate (Albuterol 2.5 Mg/3 Ml Vial.Neb.) 2.5 mg INHALATION Q4H PRN PRN Reason: Bronchodialation Albuterol/Ipratropium (Ipratropium/Albuterol Sulfate 3 Ml Ampul.Neb) 3 ml INHALATION Q6HWA.RT [facility] Last Admin: 08/10/20 07:06 Dose: 3 ml Documented by: Amiodarone HCl (Amiodarone 200 Mg Tablet) 200 mg PO BID [facility] Last Admin: 08/10/20 09:25 Dose: 200 mg Documented by: Aspirin (Aspirin E.C. 81 Mg Tablet) 81 mg PO DAILY@0800 [facility] Last Admin: 08/10/20 09:24 Dose: 81 mg Documented by: Atorvastatin Calcium (Atorvastatin Calcium 80 Mg Tablet) 80 mg PO QHS [facility] Last Admin: 08/09/20 21:45 Dose: 80 mg Documented by: Budesonide (Budesonide Respules 0.5 Mg/2 Ml Ampul.Neb.) 0.5 mg INHALATION Q12H.RT [facility] Last Admin: 08/10/20 07:06 Dose: 0.5 mg Documented by: Calcitriol (Calcitriol 0.25 Mcg Capsule) 0.25 mcg PO DAILY [facility] Last Admin: 08/10/20 09:26 Dose: 0.25 mcg Documented by: Carvedilol (Carvedilol 25 Mg Tablet) 25 mg PO BID [facility] Last Admin: 08/10/20 09:25 Dose: 25 mg Documented by: Ezetimibe (Ezetimibe 10 Mg Tablet) 10 mg PO QHS [facility] Last Admin: 08/09/20 21:44 Dose: 10 mg Documented by: Fenofibrate (Fenofibrate 145 Mg Tablet) 145 mg PO QHS [facility] Last Admin: 08/09/20 21:45 Dose: 145 mg Documented by: Ferrous Sulfate (Ferrous Sulfate 325 Mg Tablet) 325 mg PO TID@1200,1700,2200 [facility] Last Admin: 08/10/20 12:40 Dose: 325 mg Documented by: Furosemide (Furosemide 20 Mg Tablet) 60 mg PO BIDLX [facility] Last Admin: 08/10/20 09:26 Dose: 60 mg Documented by: Heparin Sodium (Beef Lung) (Heparin Lock 500 Unit/5 Ml In 10 Ml Syringe) 500 unit IV UD PRN PRN Reason: HEPARIN FLUSH Sodium Chloride () 250 mls @ 15 mls/hr IV .[id number] PRN PRN Reason: Saline Flush Sodium Chloride () 250 mls @ 15 mls/hr IV .[id number] PRN PRN Reason: Additional IVPB Infusion Sodium Chloride () 1,000 mls @ 15 mls/hr IV .Q48H [facility] Last Admin: 08/09/20 13:17 Dose: Not Given Documented by: Isosorbide Dinitrate (Isosorbide Dn 10 Mg Tablet) 5 mg PO TID [facility] Last Admin: 08/10/20 05:50 Dose: 5 mg Documented by: Labetalol HCl (Labetalol (Prefilled) 20 Mg/4 Ml) 5 mg IV X1 PRN PRN Reason: SBP > 160 prior to sheath pull Stop: 08/11/20 08:24 Levothyroxine Sodium (Levothyroxine 112 Mcg Tablet) 112 mcg PO DAILY@0600 [facility] Last Admin: 08/10/20 05:23 Dose: 112 mcg Documented by: Potassium Chloride (Potassium Chloride 10 Meq Tablet) 10 meq PO DAILYCM [facility] Last Admin: 08/10/20 09:24 Dose: 10 meq Documented by: Rivaroxaban (Rivaroxaban 20 Mg Tablet) 20 mg PO DINNER [facility] Last Admin: 08/09/20 17:18 Dose: Not Given Documented by: Sodium Chloride (0.9% Saline Lock 10 Ml Syringe) 10 - 40 ml IV UD PRN PRN Reason: SALINE FLUSH Last Admin: 08/08/20 21:40 Dose: 20 ml Documented by: Spironolactone (Spironolactone 25 Mg Tablet) 25 mg PO DAILY [facility] Last Admin: 08/10/20 09:25 Dose: 25 mg Documented by: Tamsulosin HCl (Tamsulosin Hcl 0.4 Mg Capsule) 0.4 mg PO DAILY@0830 [facility] Last Admin: 08/10/20 09:25 Dose: 0.4 mg Documented by: Discharge Diet: Low fat/ Low Cholesterol, 2000 mg Sodium Diet Discharge Activity: Return to Normal Activity Disposition: Home Minutes spent on discharge:: 35 Medical Necessity - Tobacco Use Smoking Status: Former smoker Meaningful Use Info Meaningful Use Diagnoses (Choose all that apply): None applicable Inpatient E&M: 23426 Disch Hosp
--- NOTE | 2020-08-10 12:19 | PN.CARD_ITS ---
Objective: Vital Signs Temp Pulse Resp BP Pulse Ox 98.2 F 60 16 130/43 H 98 08/10/20 09:05 08/10/20 11:36 08/10/20 09:05 08/10/20 09:05 08/10/20 09:05 Oxygen Flow Rate (L/min) 2 Oxygen Delivery Method Nasal Cannula Weight: 214 lb 11.684 oz Body Mass Index (BMI) 33.6 Intake and Output for Last 24 Hours 08/08/20 08/09/20 08/10/20 23:59 23:59 23:59 Intake Total 620 / 920 1961.92 / 2141.92 280 / 280 Output Total 2225 / 2975 2000 / 2400 900 / 900 Balance -1605 / -2055 -38.08 / -258.08 -620 / -620 08/07/20 10:26: Amiodarone 1.5 08/10/20 05:22: WBC 5.0, RBC 3.66 L, Hgb 11.6 L, Hct 36.9 L, MCV 100.8 H, MCH 31.7, MCHC 31.4 L, Plt Count 107 L, MPV 11.0, Immature Gran % (Auto) 0.800, Neut % (Auto) 76.2 H, Lymph % (Auto) 13.7 L, [place] % (Auto) 8.5, Eos % (Auto) 0.6, Baso % (Auto) 0.2, Absolute Neuts (auto) 3.8, Nucleated RBC % 0 08/10/20 05:22: Sodium 138, Potassium 3.8, Chloride 98, Carbon Dioxide 39.0 H, Anion Gap 1 L, BUN 47 H, Creatinine 1.80 H, Est GFR (MDRD) Af Amer 48 L, Est GFR (MDRD) Non-Af 40 L, BUN/Creatinine Ratio 26.1 H, Glucose 83, Calcium 9.1 Rhythm: Review of the cardiac telemetry reveals paced cardiac rhythm and patient has been stable hemodynamically. Medical Necessity - Tobacco Use Smoking Status: Former smoker Assessment/Plan 73-year-old patient Patient seen and evaluated today at bedside and cardiac care plan discussed with the nursing staff This patient had extensive cardiac history with history of CAD prior PCI and stent involving the LAD and the left circumflex artery Had severe LV systolic dysfunction ejection fraction from 20%, has ICD device. On this admission he underwent elective catheterization/coronary angiography by his primary university relations director patency of the coronary artery stents noted and there was no need for PCI or coronary intervention. Patient stable clinically I reviewed and discussed all his current medication with the nursing staff and plan is for discharge with follow-up in the cardiology clinic with his primary university relations director For continuity of cardiac care plan.
[2020-08-10] MEDS: Ferrous Sulfate 325 MG Tablet PO (12:40)
--- NOTE | 2020-08-12 14:21 | CASEMGMT ---
CHAN CONTRERAS Discharge F/U Phone Call LACE: 11 Strata: 3 Discharge date: 08/10/20 Call date: 08/12/20 Call time: [id number] Admission dx: Wide Complex Tachycardia Pt states has been 'doing good' since discharge. Pt states no questions regarding discharge instructions/medications at this time. Pt states has f/u appt's scheduled with heart group on 08/29/20 and nephro on 08/28/20 and has bloodwork appt set up for PCP f/u. Pt states no suggestions for [facility] at this time and states 'you all did a pretty good job, I think we just need to get my meds tweaked now.' Pt voices no further questions/concerns/needs at this time. [place] CHAN CONTRERAS
== END 2020-08-10 13:11 | disposition home or self-care (01) | DRG 287 ==
LOC: ED 11:19 → PCU 11:50
PROVIDERS: Internal Medicine Cardiovascular Disease; Physician Assistant; Emergency Provider Emergency Medicine
DX: I47.2 Ventricular tachycardia (principal); I13.0 Hypertensive heart and chronic kidney disease with heart failure and stage 1 through stage 4 chronic kidney disease, or unspecified chronic kidney disease; I50.22 Chronic systolic (congestive) heart failure; J98.11 Atelectasis; N18.4 Chronic kidney disease, stage 4 (severe); J96.11 Chronic respiratory failure with hypoxia; D64.9 Anemia, unspecified; I48.20 Chronic atrial fibrillation, unspecified; I48.92 Unspecified atrial flutter; J44.9 Chronic obstructive pulmonary disease, unspecified; E78.00 Pure hypercholesterolemia, unspecified; E03.9 Hypothyroidism, unspecified; E78.5 Hyperlipidemia, unspecified; I70.1 Atherosclerosis of renal artery; I73.9 Peripheral vascular disease, unspecified; I25.10 Atherosclerotic heart disease of native coronary artery without angina pectoris; I25.5 Ischemic cardiomyopathy; N40.0 Benign prostatic hyperplasia without lower urinary tract symptoms; I27.20 Pulmonary hypertension, unspecified; I25.2 Old myocardial infarction; K57.90 Diverticulosis of intestine, part unspecified, without perforation or abscess without bleeding; Z95.810 Presence of automatic (implantable) cardiac defibrillator; Z79.01 Long term (current) use of anticoagulants; Z79.82 Long term (current) use of aspirin; Z79.899 Other long term (current) drug therapy; Z87.891 Personal history of nicotine dependence
CPT/HCPCS: 36415; 36591; 71045; 78452; 80048; 80053; 80299; 83605; 83735; 83880; 84443; 84484; 85025; 93005; 93017; 93306; 93454; 94640; 99152; 99153; 99285; A9500; J7030; Q9967; A4216; C1769; C1894; J2785

== ENCOUNTER → 2020-08-22 06:00 | Outpatient (CLI) | payer MEDICARE, OTHER, SELFPAY ==
[2020-03-28 10:13] VITALS: BMI 34.7
[2020-08-07 12:19] VITALS: BMI 33.6
[2020-08-22 06:10] LABS: Bacteria 0 SEEN /hpf (None Seen); Mucous, Urine 0 SEEN /hpf (<or=2+); Squamous Epithelial Cells - UA 0 SEEN /hpf (0-5); White Blood Cells 0 SEEN /hpf (0-5)
[2020-08-22 06:38] LABS: Absolute Lymphocyte Count 0.73 X10^3/uL (0.83-4.51); Absolute Neutrophil Count 5.7 X10^3/uL (2.0-7.7); Basophil# 0.01 X10^3/uL; Basophil% 0.1 % (0-1); Eosinophil# 0.02 X10^3/uL; Eosinophils% 0.3 % (0-5); Hematocrit 34.6 % (40-54); Hemoglobin 11.2 g/dL (13.0-16.5); Lymphocyte # 0.73 X10^3/ul (4.0); Lymphocyte % 10.4 % (19-41); Mean Corp Hgb Conc 32.4 g/dL (32-36); Mean Corpuscular Hgb 31.3 pg (27.0-32.0); Mean Corpuscular Volume 96.6 fL (80-94); Mean Platelet Vol. 10.5 fl (6.2-12.0); Monocyte# 0.51 X10^3/uL; Monocyte% 7.3 % (0-10); NRBC Flagged by Analyzer 0 % (0-5); Neutrophil # 5.72 X10^3/uL (2.7-7.7); Neutrophil % 81.3 % (47-70); Platelet Count 201 K/mm3 (150-450); RBC Distribution Width CV 12.9 % (11.6-14.6); RBC Distribution Width SD 45.6 fl (35.1-43.9); Red Blood Count 3.58 M/mm3 (4.6-6.2)
[2020-08-22 06:39] LABS: Color, Urine Yellow (Yellow); Glucose, Dipstick Normal (Normal); Ketone-Dipstick Negative (Negative); Leukocyte Esterase-Dipstick Negative /ul (Negative); Nitrite-Dipstick Negative (Negative); Occult Blood-Urine 25 /ul (Negative); Protein-Dipstick Negative (Negative); Urine Bilirubin Dipstick Negative (Negative); Urine Clarity Clear (Clear); Urine Urobilinogen Normal (Normal)
[2020-08-22 06:44] LABS: Red Blood Cells-Urine 0-5 SEEN /hpf (0-5)
[2020-08-22 06:48] LABS: Protein, Urine (Random) 10.6 mg/dL (<11.9); Protein:Creat Ratio 416 mg/g CRE (0-200)
[2020-08-22 07:36] LABS: ALB/GLOB Ratio 0.6 RATIO (0.9-2.4); AST(SGOT) 25 U/L (15-37); Alanine Aminotransfer ALT/SGPT 15 U/L (16-61); Albumin, Serum 2.9 g/dL (3.2-5.0); Alkaline Phosphatase 28 U/L (45-117); Anion Gap 5 (5-15); BUN 72 mg/dL (7-18); BUN/Creat Ratio 29.1 RATIO (10-20); Calcium,Total 9.8 mg/dL (8.5-10.1); Chloride 93 mmol/L (98-107); Cholesterol 138 mg/dL (200); Creatinine, Serum 2.47 mg/dL (0.70-1.30); EST Glomerular Filtration Rate 28 mL/min (>60); Est Glom Filt Rate - Afr Amer 33 mL/min (>60); Globulin 4.6 g/dL (2.2-4.2); Glucose 98 mg/dL (74-106); High Density Lipoprotein 32 mg/dL; Iron 46 ug/dL (65-175); Phosphorus 2.8 mg/dL (2.5-4.9); Potassium 4.1 mmol/L (3.5-5.1); Protein, Total 7.5 g/dL (6.4-8.2); Sodium Level 133 mmol/L (136-145); Thyroid Stim Hormone (TSH) 3.44 uIU/mL (0.358-3.74); Triglycerides 136 mg/dL; Very Low Density Lipoprotein 27 mg/dL (5-40)
[2020-08-22 07:58] LABS: PTHIN 173.8 pg/mL (18.4-80.1)
== END ==
PROVIDERS: Referring Provider Family Medicine; Visit Provider Family Medicine
DX: I13.0 Hypertensive heart and chronic kidney disease with heart failure and stage 1 through stage 4 chronic kidney disease, or unspecified chronic kidney disease (principal); N18.30 Chronic kidney disease, stage 3 unspecified; I50.9 Heart failure, unspecified; E78.5 Hyperlipidemia, unspecified; E03.9 Hypothyroidism, unspecified; D50.9 Iron deficiency anemia, unspecified; Z12.5 Encounter for screening for malignant neoplasm of prostate
CPT/HCPCS: 36415; 80053; 80061; 81001; 82570; 83540; 83970; 84100; 84153; 84156; 84443; 85025; G0103

== ENCOUNTER 2020-09-24 08:19 | Outpatient (RCR) | payer MEDICARE, OTHER, SELFPAY ==
[2020-08-29 11:30] VITALS: BMI 32.5
[2020-09-24] MEDS: COVID-19 VACC, MRNA(PFIZER)/PF 30 MCG/0.3 ML SYRINGE IM (10:54)
[2020-10-15] MEDS: COVID-19 VACC, MRNA(PFIZER)/PF 30 MCG/0.3 ML SYRINGE IM (10:20)
== END 2020-12-24 23:59 ==
LOC: IMMUN 08:19
PROVIDERS: Visit Provider Family Medicine
DX: Z23 Encounter for immunization (principal)
CPT/HCPCS: 0001A; 0002A; 91300

== ENCOUNTER → 2021-01-30 07:36 | Outpatient (CLI) | payer MEDICARE, OTHER, SELFPAY ==
[2020-10-09 10:45] VITALS: BMI 32.1
[2021-01-30 07:44] LABS: Bacteria 0 SEEN /hpf (None Seen); Mucous, Urine 0 SEEN /hpf (<or=2+); Red Blood Cells-Urine 0 SEEN /hpf (0-5); Squamous Epithelial Cells - UA 0 SEEN /hpf (0-5); White Blood Cells 0 SEEN /hpf (0-5)
[2021-01-30 08:54] LABS: Hematocrit 37.1 % (40-54); Hemoglobin 11.4 g/dL (13.0-16.5); Mean Corp Hgb Conc 30.7 g/dL (32-36); Mean Corpuscular Hgb 30.6 pg (27.0-32.0); Mean Corpuscular Volume 99.5 fL (80-94); Platelet Count 144 K/mm3 (150-450); RBC Distribution Width CV 14.6 % (11.6-14.6); RBC Distribution Width SD 53.4 fl (35.1-43.9); Red Blood Count 3.73 M/mm3 (4.6-6.2)
[2021-01-30 08:58] LABS: Color, Urine Yellow (Yellow); Glucose, Dipstick Normal (Normal); Ketone-Dipstick Negative (Negative); Leukocyte Esterase-Dipstick Negative /ul (Negative); Nitrite-Dipstick Negative (Negative); Occult Blood-Urine Negative /ul (Negative); Protein-Dipstick Negative (Negative); Specific Gravity, Urine 1.015 (1.002-1.030); Urine Bilirubin Dipstick Negative (Negative); Urine Clarity Clear (Clear); Urine Urobilinogen Normal (Normal); Urine pH 6.5 (5.0 - 8.0)
[2021-01-30 09:07] LABS: Protein, Urine (Random) 6.7 mg/dL (<11.9); Protein:Creat Ratio 142 mg/g CRE (0-200)
[2021-01-30 09:19] LABS: Anion Gap 3 (5-15); BUN 41 mg/dL (7-18); BUN/Creat Ratio 19.4 RATIO (10-20); Calcium,Total 9.8 mg/dL (8.5-10.1); Chloride 96 mmol/L (98-107); Creatinine, Serum 2.11 mg/dL (0.70-1.30); EST Glomerular Filtration Rate 33 mL/min (>60); Est Glom Filt Rate - Afr Amer 40 mL/min (>60); Glucose 91 mg/dL (74-106); Phosphorus 3.4 mg/dL (2.5-4.9); Sodium Level 136 mmol/L (136-145)
[2021-01-30 09:28] LABS: PTHIN 136.9 pg/mL (18.4-80.1)
[2021-01-30 09:39] LABS: Vitamin D,25 Hydroxy 25.7 ng/mL
== END ==
PROVIDERS: Referring Provider Internal Medicine; Visit Provider Internal Medicine
DX: N18.30 Chronic kidney disease, stage 3 unspecified (principal); N25.81 Secondary hyperparathyroidism of renal origin
CPT/HCPCS: 36415; 80048; 81001; 82306; 82570; 83970; 84100; 84156; 85027

== ENCOUNTER → 2021-02-13 11:28 | Outpatient (CLI) | payer MEDICARE, OTHER, SELFPAY ==
[2021-02-13 10:52] VITALS: BMI 32.1
[2021-02-13 13:14] LABS: Free T3 1.7 pg/mL (2.18-3.98); T4 Free Direct 1.91 ng/dL (0.76-1.46); Thyroid Stim Hormone (TSH) 4.41 uIU/mL (0.358-3.74)
== END ==
PROVIDERS: Referring Provider Physician Assistant Medical; Visit Provider Physician Assistant Medical
DX: I47.2 Ventricular tachycardia (principal); E78.00 Pure hypercholesterolemia, unspecified; Z79.899 Other long term (current) drug therapy
CPT/HCPCS: 36415; 84439; 84443; 84481

== ENCOUNTER → 2021-02-27 09:42 | Outpatient (CLI) | payer MEDICARE, OTHER, SELFPAY ==
[2021-02-13 10:52] VITALS: BMI 32.1
--- NOTE | 2021-02-27 09:46 | RAD_ITS ---
STUDY: X-RAY CHEST REASON FOR EXAM: Male, 70 years old. SOB TECHNIQUE: PA and lateral views of the chest. COMPARISON: Comparison is made with prior study dated 08/07/2020. FINDINGS: Patchy right perihilar infiltrate. Radiographic follow-up is recommended. There is blunting of the right costophrenic angle. There is moderate cardiac enlargement. A left sided chamber pacemaker is seen. Normal mediastinum and lee. Normal visualized pulmonary arteries. There is atherosclerotic calcification of the aortic arch with tortuosity. There are diffuse degenerative changes of the visualized thoracic spine. Normal visualized ribs, clavicles, and shoulders. There is no demonstrated abnormality of the visualized soft tissue structures of the upper abdomen. RAD/Chest PA and Lateral IMPRESSION: Patchy right perihilar infiltrate with blunting of the right cardiac phrenic angle. Follow-up is recommended. Electronically Signed: Tra Myrick MD at 19:45 EDT , Service support ,
--- NOTE | 2021-02-28 13:31 | PFT_ITS ---
INTRODUCTION: The patient is a 70-year-old male that presents for pulmonary function studies secondary to a diagnosis of long-term drug therapy. Respiratory therapy reported good patient effort. Bronchodilators were used during testing. INTERPRETATION: Forced expiration spirometry demonstrates the presence of a severe large airways obstructive ventilatory defect. There was a significant response to aerosolized bronchodilators. Spirograms are of fair quality but do not plateau indicating slow emptying of the lungs. Body plethysmography was performed and revealed a d ecreased TLC to 4.12 L, 71% of predicted, indicative of a mild restrictive ventilatory impairment. Diffusing capacity by single breath CO is reduced at 43% of predicted. When compared to previous pulmonary function studies from April 2016 there has been a 26% decrease in total lung capacity along with a 41% decrease in diffusing capacity. IMPRESSION: Partially reversible severe mixed ventilatory defect with symmetric reduction in diffusing capacity.
== END ==
PROVIDERS: Referring Provider Physician Assistant Medical; Visit Provider Physician Assistant Medical
DX: I47.2 Ventricular tachycardia (principal); Z79.899 Other long term (current) drug therapy
CPT/HCPCS: 71046; 94060; 94726; 94729

== ENCOUNTER → 2021-04-11 11:56 | Outpatient (CLI) | payer MEDICARE, OTHER, SELFPAY ==
--- NOTE | 2021-04-11 12:00 | RAD_ITS ---
INDICATION: SOB EXAMINATION/TECHNIQUE: X-RAY - XR Chest 2 Views COMPARISON: 02/27/2021. FINDINGS: Airspace opacities in the bilateral lower lobes. The heart is enlarged. Tortuous and calcified thoracic aorta. Left-sided cardiac device. No pleural effusion or pneumothorax. No acute osseous abnormalities. RAD/Chest PA and Lateral IMPRESSION: Bilateral airspace opacities in the lower lobes could represent edema and/or infection. Electronically Signed: Michael Stock MD at 23:39 EDT Tel , Service support ,
== END ==
PROVIDERS: Referring Provider Physician Assistant Medical; Visit Provider Physician Assistant Medical
DX: J44.9 Chronic obstructive pulmonary disease, unspecified (principal)
CPT/HCPCS: 71046

== ENCOUNTER 2021-04-20 10:46 | Inpatient (IN) | payer MEDICARE, OTHER, SELFPAY ==
[2021-04-20] VITALS (13 sets, daily range): BP systolic 106–129; BP diastolic 52–75; PULSE 60–80; RESP 16–24; TEMP 35.8–36.4; O2SAT 91–100; BMI 34.9; BMI 35.5
--- NOTE | 2021-04-20 11:25 | EKG12_ITS ---
Test Reason : SOB Blood Pressure : / mmHG Vent. Rate : 062 BPM Atrial Rate : 441 BPM P-R Int : 000 ms QRS Dur : 146 ms QT Int : 420 ms P-R-T Axes : 000 018 255 degrees QTc Int : 426 ms Atrial fibrillation with frequent ventricular-paced complexes Non-specific intra-ventricular conduction block Abnormal ECG Confirmed by GAGE MESSINA, NIKOLAS ([id number]), magazine editor KLAUDIA DAVIS ([id number]) on 04/22/2021 8:08:32 AM Referred By: CANDY Confirmed By:NIKOLAS ALMONTE MD
--- NOTE | 2021-04-20 11:25 | EDS_ITS ---
HPI History of Present Illness Chief Complaint: Shortness of Breath Informant: patient and family Onset/Context/Timing Onset: Weeks Context: Gradual Onset Current Severity: Moderate Maximum Severity: Moderate Narrative Narrative: Patient presents via EMS secondary to increased shortness of breath. He is noted increase shortness of breath for the last 2 months. It is significantly worse with any exertion. He is having difficulty getting around at home and did fall yesterday. He has been elevating his head to sleep at night the last several days. He does feel that his legs are more swollen than normal. He denies fever or chills. No chest pain. He denies vomiting or diarrhea but has had decreased p.o. intake. Patient does have a history of COPD and wears 3 L of oxygen at baseline. He also has history of CHF. He states he has had good urine output with his Lasix at home. [facility] Medical History Acute kidney injury superimposed on chronic kidney disease Acute on chronic combined severe HF Acute on chronic respiratory failure with hypoxia and hypercapnia Acute systolic congestive heart failure Anasarca Anemia Atherosclerotic heart disease of telida coronary artery without angina pectoris Atrial fibrillation Bilateral atelectasis BPH (benign prostatic hypertrophy) Chronic anticoagulation Chronic systolic (congestive) heart failure COPD (chronic obstructive pulmonary disease) Diverticulosis Former smoker, stopped smoking in distant past History of left heart catheterization (LHC) (~08/09/20) History of stent insertion of renal artery Hyperlipemia Hypertension Hypothyroidism Ischemic cardiomyopathy Left renal artery stenosis 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 Pacemaker Peripheral arterial occlusive disease Pleural effusion Pulmonary hypertension Respiratory failure with hypoxia and hypercapnia Urine retention Warfarin-induced coagulopathy Home Medications albuterol sulfate 1 - 2 puff INHALATION Q4H PRN PRN 12/01/17 [History Last Taken 08/03/20] aspirin 81 mg PO DAILY@0800 12/01/17 [History Last Taken 08/07/20] budesonide-formoterol 2 puff INHALATION BID 12/01/17 [History Last Taken 12/01/17] levothyroxine 112 mcg PO DAILY 12/01/17 [History Last Taken 08/07/20] tamsulosin 0.4 mg PO DAILY 12/01/17 [History Last Taken 08/07/20] tiotropium bromide 2 puff INHALATION DAILY 12/01/17 [History Last Taken 08/07/20] ferrous sulfate 325 mg PO TIDCM #1 tab 12/04/17 [Rx Last Taken 08/07/20] calcitriol 0.25 mcg capsule 0.25 mcg PO MOWEFR cap 08/11/18 [History Last Taken Unknown] potassium chloride 10 mEq tablet,extended release(part/cryst) 10 meq PO DAILY tab 09/14/19 [History Last Taken 08/07/20] ezetimibe 10 mg tablet 10 mg PO QHS #90 tab 10/11/19 [Rx Last Taken Unknown] fenofibrate nanocrystallized 145 mg tablet 145 mg PO QHS #90 tab 10/11/19 [Rx Last Taken 08/06/20] rosuvastatin 40 mg tablet 40 mg PO QHS #90 tab 10/11/19 [Rx Last Taken 08/06/20] carvedilol 25 mg tablet 25 mg PO BID #180 tab 05/10/20 [Rx Last Taken 08/07/20] rivaroxaban 20 mg tablet 20 mg PO DAILY #30 tab 05/13/20 [Rx Last Taken 08/06/20] Handicap Placard #1 ea 08/29/20 [Rx Last Taken Unknown] furosemide 20 mg tablet 60 mg PO BID #180 tab 10/18/20 [Rx Last Taken Unknown] isosorbide dinitrate 5 mg tablet 5 mg PO TID #270 tab 10/28/20 [Rx Last Taken Unknown] spironolactone 25 mg tablet 25 mg PO DAILY #90 tab 12/24/20 [Rx Last Taken Unknown] amiodarone 200 mg PO BID 04/20/21 [History Last Taken Unknown] Allergy/AdvReac Type Severity Reaction Status Date / Time No Known Allergies Allergy Verified 04/20/21 10:51 Family History Father CAD (coronary artery disease) Mother CAD (coronary artery disease) Brother CAD (coronary artery disease) Hypertension Sister CAD (coronary artery disease) Hypertension Surgical History AICD (automatic cardioverter/defibrillator) present History of stent insertion of renal artery (03/14/08) Status post aortobifemoral bypass surgery (04/25/01) Stented coronary artery (12/27/13) Social History Smoking Status: Former smoker alcohol intake: never caffeine: Yes Type: coffee ROS ROS ED Constitutional Constitutional ED: Denies chills or fever(s) Eyes Eyes: Denies change in vision ENT ENT ED: Denies sore throat Cardiovascular Cardiovascular: Denies chest pain Respiratory/Chest Respiratory/Chest: Reports cough and dyspnea; Denies sputum Gastrointestinal Gastrointestinal: Denies abdominal pain, diarrhea, nausea or vomiting Genitourinary Genitourinary ED: Denies dysuria Musculoskeletal Musculoskeletal: Denies back pain Integumentary Denies rash Neurologic Neurologic: Reports weakness; Denies headache(s) Allergic/Immunologic Allergic/Immunologic ED: Denies urticaria EXAM Physical Exam Const Vital Signs: 04/20/21 10:47 04/20/21 10:50 04/20/21 10:53 Temperature 96.6 F L 96.8 F L Temperature Source Temporal Temporal Pulse Rate 70 65 Respiratory Rate 16 22 H Respiratory Effort Short of Breath Respiratory Pattern Tachypnea Blood Pressure 113/59 L 113/59 L Blood Pressure Mean 77 77 Pulse Ox 95 100 Oxygen Delivery Method Nasal Cannula Nasal Cannula Nasal Cannula Oxygen Flow Rate (L/min) 2 2 2 04/20/21 11:36 04/20/21 12:34 04/20/21 12:42 Temperature 96.5 F L Temperature Source Temporal Pulse Rate 80 70 68 Respiratory Rate 24 H 20 H 20 H Respiratory Effort Respiratory Pattern Normal Blood Pressure 127/62 H 106/55 L Blood Pressure Mean 83 72 Pulse Ox 100 100 Oxygen Delivery Method Nasal Cannula Nasal Cannula Oxygen Flow Rate (L/min) 4 4 04/20/21 13:20 Temperature 96.5 F L Temperature Source Temporal Pulse Rate 62 Respiratory Rate 16 Respiratory Effort Respiratory Pattern Blood Pressure 129/75 H Blood Pressure Mean 93 Pulse Ox 100 Oxygen Delivery Method Nasal Cannula Oxygen Flow Rate (L/min) 4 Positive well nourished and well developed General Appearance ED: well developed HEENT Reports normocephalic and head/scalp atraumatic Eyes PERRL and EOMs intact bilaterally Neck supple Chest Wall inspection of chest normal and palpation of chest normal Resp Resp Narrative: Crackles bilateral bases. Cardio regular rate and regular rhythm GI normal to inspection, nondistended, normoactive bowel sounds and non-tender Palpation: soft Extremity Extremity Narrative: 3-4+ bilateral lower extremity edema. General Extremety ED: Yes edema General Extremity: edema Neuro oriented x3 Neuro Narrative: Generalized weakness with no focal deficits. Sensorium / Orientation: alert Psych mental status grossly normal Skin no rashes or lesions noted MDM MDM MDM Narrative Medical decision making narrative: EKG, chest x-ray, lab work obtained. Covid swab ordered. Lab Data Attestation: I reviewed the patient's lab results. Labs: Laboratory Results - last 24 hr 04/20/21 04/20/21 04/20/21 11:06 11:06 11:06 WBC 6.6 RBC 3.51 L Hgb 11.1 L Hct 37.7 L MCV 107.4 H MCH 31.6 MCHC 29.4 L RDW Std Deviation 59.7 H RDW Coeff of Bhavna 15.0 H Plt Count 143 L MPV 11.5 Immature Gran % (Auto) 0.600 Neut % (Auto) 85.5 H Lymph % (Auto) 5.9 L [place] % (Auto) 7.6 Eos % (Auto) 0.2 Baso % (Auto) 0.2 Absolute Neuts (auto) 5.7 Absolute Lymphs (auto) 0.39 L Nucleated RBC % 0 Differential Comment SCANNED Sodium 133 L Potassium 6.2 H* Chloride 94 L Carbon Dioxide 36.0 H Anion Gap 3 L BUN 104 H* Creatinine 2.88 H Estim Creat Clear Calc 21.68 Est GFR (MDRD) Af Amer 28 L Est GFR (MDRD) Non-Af 23 L BUN/Creatinine Ratio 36.1 H Glucose 124 H Calcium 9.7 Troponin I High Sens 313 H* B-Natriuretic Peptide 611.6 H Radiography Chest X-Ray - ED: 1 View, Read by ED Physician and Right Infiltrate Diagnostic Testing: Radiology Impression Chest X-Ray 04/20/21 11:35 IMPRESSION: No change in right lower lobe pneumonia or mass. Correlation with CT the chest with contrast would be useful to exclude mass. Electronically Signed: Franco Green MD at 12:10 EDT Tel , Service support , Chest CT 04/20/21 12:20 IMPRESSION: 1. 3.5 cm right hilar mass in the medial right middle lobe worrisome for bronchogenic carcinoma with some postobstructive atelectasis. Correlation with bronchoscopy would be useful. 2. Small bilateral pleural effusions with some bibasilar atelectasis. 3. Cardiomegaly with a small pericardial effusion. Electronically Signed: Franco Green MD at 13:59 EDT Tel , Service support , EKG Initial EKG: Attestation: I personally reviewed and interpreted this EKG as follows: Interpretation: Atrial Fibrillation (A. fib at 62 with underlying intraventricular conduction delay.) Comments: Rhythm noted to be paced when heart rate drops below 60. Treatment and Re-Evaluation Comments:: Lab work is reviewed. Patient's potassium is elevated at 6.2 and troponin is elevated at 313. Creatinine is 2.88 which is similar to his prior values. BNP is 611. Covid swab is negative. Patient was given insulin and glucose along with inhaled albuterol for hyperkalemia. Radiologist interpretation of chest x-ray was possible mass versus infiltrate right lower lobe similar to prior study. I did not see that the patient had ever had a CT scan done. CT chest obtained that reveals evidence of a 3.5 cm right hilar mass causing postobstructive atelectasis. Test results are discussed with the patient and daughter at bedside. I did advise that he will require a lung biopsy at some point, but because he is currently on Xarelto this will need to be delayed until he can come off his medication. He will require admission for treatment of his hyperkalemia and elevated troponin. Discharge Plan Triage Chief Complaint: Shortness of Breath ED Provider: Mloly Perera Dx/Rx/DC Orders Clinical Impression: Hyperkalemia, Dyspnea, Elevated troponin Prescriptions: No Action calcitriol 0.25 mcg capsule 0.25 mcg PO MOWEFR RF: 0 (DME) Handicap Placard See Rx Instructions .Route .MEDSUPPLY Qty: 1 RF: 0 aspirin 81 MG tablet 81 mg PO DAILY@0800 RF: 0 tamsulosin 0.4 MG capsule 0.4 mg PO DAILY RF: 0 albuterol sulfate 1 PUFF inhaler 1 - 2 puff INHALATION Q4H PRN PRN (Reason: Bronchodialation) RF: 0 levothyroxine 112 MCG tablet 112 mcg PO DAILY RF: 0 budesonide-formoterol 1 INHALER inhaler 2 puff INHALATION BID RF: 0 tiotropium bromide 4 GM mist 2 puff INHALATION DAILY RF: 0 ferrous sulfate 325 MG tablet 325 mg PO TIDCM Qty: 1 RF: 0 potassium chloride 10 mEq tablet,ER particles/crystals 10 meq PO DAILY RF: 0 amiodarone 200 mg tablet 200 mg PO BID RF: 0 ezetimibe 10 mg tablet 10 mg PO QHS Qty: 90 RF: 3 fenofibrate nanocrystallized 145 mg tablet 145 mg PO QHS Qty: 90 RF: 3 rosuvastatin 40 mg tablet 40 mg PO QHS Qty: 90 RF: 3 carvedilol 25 mg tablet 25 mg PO BID Qty: 180 RF: 4 Xarelto 20 mg tablet 20 mg PO DAILY Qty: 30 RF: 11 furosemide [Lasix] 20 mg tablet 60 mg PO BID Qty: 180 RF: 11 isosorbide dinitrate 5 mg tablet 5 mg PO TID Qty: 270 RF: 3 spironolactone 25 mg tablet 25 mg PO DAILY Qty: 90 RF: 3 Primary Care Provider: Tyrone Bhakta Referrals: Tyrone hBakta [Primary Care Provider] - Disposition Disposition: Acute Care [facility]
[2021-04-20 11:33] LABS: Absolute Lymphocyte Count 0.39 X10^3/uL (0.83-4.51); Absolute Neutrophil Count 5.7 X10^3/uL (2.0-7.7); Basophil# 0.01 X10^3/uL; Basophil% 0.2 % (0-1); Eosinophil# 0.01 X10^3/uL; Eosinophils% 0.2 % (0-5); Hematocrit 37.7 % (40-54); Hemoglobin 11.1 g/dL (13.0-16.5); Lymphocyte # 0.39 X10^3/ul (0.83-4.51); Lymphocyte % 5.9 % (19-41); Mean Corp Hgb Conc 29.4 g/dL (32-36); Mean Corpuscular Hgb 31.6 pg (27.0-32.0); Mean Corpuscular Volume 107.4 fL (80-94); Mean Platelet Vol. 11.5 fl (6.2-12.0); Monocyte% 7.6 % (0-10); NRBC Flagged by Analyzer 0 % (0-5); Neutrophil # 5.67 X10^3/uL (2.7-7.7); Neutrophil % 85.5 % (47-70); POSITIVE DIFFERENTIAL YES; Platelet Count 143 K/mm3 (150-450); RBC Distribution Width SD 59.7 fl (35.1-43.9); Red Blood Count 3.51 M/mm3 (4.6-6.2); White Blood Count 6.6 K/mm3 (4.4-11.0)
[2021-04-20 11:34] LABS: Differential Indicated SCAN CRITERIA MET
--- NOTE | 2021-04-20 11:35 | RAD_ITS ---
STUDY: X-RAY CHEST REASON FOR EXAM: Male, 70 years old. sob TECHNIQUE: Single AP portable view of the chest. COMPARISON: 04/11/2021 FINDINGS: Left subclavian dual-lead AICD which is unchanged. No change in the focal alveolar opacity in the lower right lung which may represent pneumonia or mass. Correlation with CT the chest with contrast would be useful. There is no demonstrated pleural abnormality. There is moderate cardiac enlargement. Normal mediastinum and lee. Normal visualized pulmonary arteries. Normal visualized aortic arch and descending thoracic aorta. Normal visualized thoracic spine. Normal visualized ribs, clavicles, and shoulders. There is no demonstrated abnormality of the visualized soft tissue structures of the upper abdomen. RAD/Chest 1 View (Portable) IMPRESSION: No change in right lower lobe pneumonia or mass. Correlation with CT the chest with contrast would be useful to exclude mass. Electronically Signed: Franco Green MD at 12:10 EDT Tel , Service support ,
[2021-04-20 11:48] LABS: Anion Gap 3 (5-15); BUN 104 mg/dL (7-18); BUN/Creat Ratio 36.1 RATIO (10-20); Calcium,Total 9.7 mg/dL (8.5-10.1); Chloride 94 mmol/L (98-107); Creatinine, Serum 2.88 mg/dL (0.70-1.30); EST Glomerular Filtration Rate 23 mL/min (>60); Est Glom Filt Rate - Afr Amer 28 mL/min (>60); Estimated Creatinine Clearance 21.68 ml/min; Glucose 124 mg/dL (74-106); Potassium 6.2 mmol/L (3.5-5.1); Sodium Level 133 mmol/L (136-145); Troponin-I HS 313 pg/mL (3.0-78.0)
[2021-04-20 11:53] LABS: Differential Comment SCANNED
[2021-04-20 11:58] LABS: BNP,B-Type NATRIURETIC PEPTIDE 611.6 pg/mL (0-100)
--- NOTE | 2021-04-20 12:20 | CT_ITS ---
STUDY: CT CHEST WITHOUT CONTRAST REASON FOR EXAM: Male, 70 years old. dyspnea -- infiltrate vs mass on CXR RADIATION DOSAGE (If Supplied By Facility): CTDIvol = ( 18.38 ) mGy, DLP = ( 679.58 ) mGycm TECHNIQUE: Transaxial imaging was performed without the administration of intravenous contrast material. Individualized dose optimization techniques were used for this CT. COMPARISON: Chest x-ray earlier today FINDINGS: Left subclavian pacemaker. 3.5 cm round mass within the medial aspect of the right middle lobe the lungs corresponding to the opacity seen on chest x-ray worrisome for bronchogenic carcinoma. Some associated postobstructive atelectasis per small bilateral pleural effusions with some bibasilar atelectasis. There is a small pericardial effusion. There are calcifications of the coronary arteries. Normal mediastinum. Normal unenhanced pulmonary arteries. There is atherosclerotic calcification of the aortic arch with tortuosity and elongation of the aortic arch and descending thoracic aorta. Normal osseous structures. There is no demonstrated abnormality of the visualized upper abdomen. CT/Chest without Contrast IMPRESSION: 1. 3.5 cm right hilar mass in the medial right middle lobe worrisome for bronchogenic carcinoma with some postobstructive atelectasis. Correlation with bronchoscopy would be useful. 2. Small bilateral pleural effusions with some bibasilar atelectasis. 3. Cardiomegaly with a small pericardial effusion. Electronically Signed: Franco Green MD at 13:59 EDT Tel , Service support ,
--- NOTE | 2021-04-20 12:41 | CPS ---
gave 2ml of albuterol per order.
[2021-04-20] MEDS: Insulin Lispro 10 UNIT in Syringe 0 ML 6 UNIT IV (13:09)
[2021-04-20] MEDS: Dextrose 50%-Water 25 GM/50 ML DISP.SYRIN IV (13:10)
--- NOTE | 2021-04-20 14:49 | PCM.HP.STD ---
Documented by User: Tony DIAZ 04/20/21 15:24 HPI - General General Date of Admission: 04/20/21 Date of Service: 04/20/21 Chief Complaint: Shortness of breath HPI Narrative MOE AVERY is a 70-year-old male who presents to the ED at [facility] on 04/20/2021 with a chief complaint of shortness of breath. Patient reports that he has a 2-month history of shortness of breath that is just gotten progressively worse. Patient has been evaluated by cardiology for his shortness of breath previously however is unaware of what they are treating him for. Patient reports that his shortness of breath is significantly worse with exertion and that he is having difficulty get around his house. Patient reports that he tracks his weight and has noticed a 5 pound weight gain in the past week. Patient does report that his legs are more swollen than normal, but does not feel that his stomach is more swollen than normal. Patient denies any chest pain, productive cough, fever, chills, N/V/D. Past medical history is significant for COPD and CHF. Patient's respiratory elevated at 20 to 25 breaths/min, he is currently satting 100% on 4 L via nasal cannula. Other vital signs are stable and patient is afebrile. Chest x-ray did not reveal any acute change however did show a right lower lobe infiltrate concerning for pneumonia or mass. Chest CT did reveal a 3.5 cm right hilar mass in the right middle lower lobe worrisome for bronchogenic carcinoma with some postobstructive atelectasis. Chest CT also revealed small bilateral pleural effusions with cardiomegaly and a small pericardial effusion. Rapid Covid is negative and patient has been fully vaccinated against COVID-19. Patient was given 1 dose of albuterol in the ED, with no resolution of symptoms. [facility] Medical History Acute kidney injury superimposed on chronic kidney disease Acute on chronic combined severe HF Acute on chronic respiratory failure with hypoxia and hypercapnia Acute systolic congestive heart failure Anasarca Anemia Atherosclerotic heart disease of alutiiq coronary artery without angina pectoris Atrial fibrillation Bilateral atelectasis BPH (benign prostatic hypertrophy) Chronic anticoagulation Chronic systolic (congestive) heart failure COPD (chronic obstructive pulmonary disease) Diverticulosis Former smoker, stopped smoking in distant past History of left heart catheterization (LHC) (~08/09/20) History of stent insertion of renal artery Hyperlipemia Hypertension Hypothyroidism Ischemic cardiomyopathy Left renal artery stenosis longterm (current) use of anticoagulants Pacemaker Peripheral arterial occlusive disease Pleural effusion Pulmonary hypertension Respiratory failure with hypoxia and hypercapnia Urine retention Warfarin-induced coagulopathy Home Medications albuterol sulfate 1 - 2 puff INHALATION Q4H PRN PRN 12/01/17 [History Last Taken 08/03/20] aspirin 81 mg PO DAILY@0800 12/01/17 [History Last Taken 08/07/20] budesonide-formoterol 2 puff INHALATION BID 12/01/17 [History Last Taken 12/01/17] levothyroxine 112 mcg PO DAILY 12/01/17 [History Last Taken 08/07/20] tamsulosin 0.4 mg PO DAILY 12/01/17 [History Last Taken 08/07/20] tiotropium bromide 2 puff INHALATION DAILY 12/01/17 [History Last Taken 08/07/20] ferrous sulfate 325 mg PO TIDCM #1 tab 12/04/17 [Rx Last Taken 08/07/20] calcitriol 0.25 mcg capsule 0.25 mcg PO MOWEFR cap 08/11/18 [History Last Taken Unknown] potassium chloride 10 mEq tablet,extended release(part/cryst) 10 meq PO DAILY tab 09/14/19 [History Last Taken 08/07/20] ezetimibe 10 mg tablet 10 mg PO QHS #90 tab 10/11/19 [Rx Last Taken Unknown] fenofibrate nanocrystallized 145 mg tablet 145 mg PO QHS #90 tab 10/11/19 [Rx Last Taken 08/06/20] rosuvastatin 40 mg tablet 40 mg PO QHS #90 tab 10/11/19 [Rx Last Taken 08/06/20] carvedilol 25 mg tablet 25 mg PO BID #180 tab 05/10/20 [Rx Last Taken 08/07/20] rivaroxaban 20 mg tablet 20 mg PO DAILY #30 tab 05/13/20 [Rx Last Taken 08/06/20] Handicap Placard #1 ea 08/29/20 [Rx Last Taken Unknown] furosemide 20 mg tablet 60 mg PO BID #180 tab 10/18/20 [Rx Last Taken Unknown] isosorbide dinitrate 5 mg tablet 5 mg PO TID #270 tab 10/28/20 [Rx Last Taken Unknown] spironolactone 25 mg tablet 25 mg PO DAILY #90 tab 12/24/20 [Rx Last Taken Unknown] amiodarone 200 mg PO BID 04/20/21 [History Last Taken Unknown] Allergy/AdvReac Type Severity Reaction Status Date / Time No Known Allergies Allergy Verified 04/20/21 10:51 Family History Father CAD (coronary artery disease) Mother CAD (coronary artery disease) Brother CAD (coronary artery disease) Hypertension Sister CAD (coronary artery disease) Hypertension Surgical History AICD (automatic cardioverter/defibrillator) present History of stent insertion of renal artery (03/14/08) Status post aortobifemoral bypass surgery (04/25/01) Stented coronary artery (12/27/13) Social History Smoking Status: Former smoker pack-years: 45 Tobacco: How many years used: 30 alcohol intake: never caffeine: Yes Type: coffee ROS Constitutional Constitutional: Reports fatigue, weakness and weight gain; Denies anorexia, change in weight, chills, fever(s), malaise, night sweats or other Eyes Eyes: Denies blurry vision, change in eye color, change in vision, discharge from eye(s), double vision, erythema, eye pain, loss of vision or other ENT HEENT: Denies abnormal hearing, dysphagia, ear pain, epistaxis, headache(s), hearing loss, nasal congestion, nasal discharge, post nasal drip, sinus pressure, sore throat or other Cardiovascular Cardiovascular: Reports dyspnea on exertion, orthopnea and paroxysmal nocturnal dyspnea; Denies chest pain, claudication, edema, lightheadedness, palpitations, rapid heart rate, syncope or other Respiratory/Chest Respiratory/Chest: Reports dyspnea, shortness of breath at rest and shortness of breath with exertion; Denies cough, excessive phlegm production, hemoptysis, productive cough, wheezing or other Gastrointestinal Gastrointestinal: Denies abdominal pain, coffee ground emesis, constipation, diarrhea, dyspepsia, hematemesis, hematochezia, loose stools, melena, nausea, vomiting or other Genitourinary Genitourinary: Denies burning urination, difficulty urinating, dysuria, hematuria, nocturia, urinary frequency, urinary hesitancy, urinary incontinence, urinary urgency or other Musculoskeletal Musculoskeletal: Denies arthralgias, back pain, joint pain, joint stiffness, joint swelling, myalgias, neck pain or other Neurologic Neurologic: Denies abnormal gait, abnormal speech, confusion, disequilibrium, dizziness, focal weakness, headache(s), numbness, paresthesias, seizure-like activity, seizures, syncope, tingling, tremor(s) or other Psychiatric Psychiatric: Denies anxiety, depression, homicidal ideation, suicidal ideation or other Endocrine Endocrinology: Denies change in body appearance, cold intolerance, excessive sweating, heat intolerance, polydipsia, polyuria or other Hematologic/Lymphatic Hematologic/Lymphatic: Denies anemia, easy bleeding, easy bruising, lymphadenopathy or other Allergic/Immunologic Allergic/Immunologic: Denies rhinitis, hives, eczemia, asthma or other Vital Signs Vital Signs Vital Signs: 04/20/21 10:47 04/20/21 10:50 04/20/21 10:53 Temperature 96.6 F L 96.8 F L Temperature Source Temporal Temporal Pulse Rate 70 65 Respiratory Rate 16 22 H Respiratory Effort Short of Breath Respiratory Pattern Tachypnea Blood Pressure 113/59 L 113/59 L Blood Pressure Mean 77 77 Pulse Ox 95 100 Oxygen Delivery Method Nasal Cannula Nasal Cannula Nasal Cannula Oxygen Flow Rate (L/min) 2 2 2 04/20/21 11:36 04/20/21 12:34 04/20/21 12:42 Temperature 96.5 F L Temperature Source Temporal Pulse Rate 80 70 68 Respiratory Rate 24 H 20 H 20 H Respiratory Effort Respiratory Pattern Normal Blood Pressure 127/62 H 106/55 L Blood Pressure Mean 83 72 Pulse Ox 100 100 Oxygen Delivery Method Nasal Cannula Nasal Cannula Oxygen Flow Rate (L/min) 4 4 04/20/21 13:20 Temperature 96.5 F L Temperature Source Temporal Pulse Rate 62 Respiratory Rate 16 Respiratory Effort Respiratory Pattern Blood Pressure 129/75 H Blood Pressure Mean 93 Pulse Ox 100 Oxygen Delivery Method Nasal Cannula Oxygen Flow Rate (L/min) 4 Weight Weight: 223 lb 1.725 oz Body Mass Index (BMI) 34.9 Physical Exam Const alert and oriented x3 Orientation / Consciousness: lethargic HEENT normocephalic, head/scalp atraumatic and hearing grossly normal bilaterally Eyes EOMs intact bilaterally and conjunctivae normal Neck no lymphadenopathy, supple and no JVD Resp Effort and Inspection: abnormal respiratory pattern, tachypneic, respiratory distress and labored Auscultation: crackles, rhonchi and diminished lung sounds Cardio regular rate, regular rhythm, no murmurs and no JVD GI Inspection: edema findings bilateral Percussion: tympanic to percussion Extremity normal to inspection, full ROM and no clubbing, cyanosis or edema Skin no rashes or lesions noted, no wounds and skin turgor normal Neuro CN's II-XII intact bilaterally Psych affect normal Results Lab / Micro Data Result Diagrams: 04/20/21 11:06 04/20/21 11:06 Labs: Laboratory Results - last 24 hr 04/20/21 11:06: WBC 6.6, RBC 3.51 L, Hgb 11.1 L, Hct 37.7 L, MCV 107.4 H, MCH 31.6, MCHC 29.4 L, RDW Std Deviation 59.7 H, RDW Coeff of Bhavna 15.0 H, Plt Count 143 L, MPV 11.5, Immature Gran % (Auto) 0.600, Neut % (Auto) 85.5 H, Lymph % (Auto) 5.9 L, [place] % (Auto) 7.6, Eos % (Auto) 0.2, Baso % (Auto) 0.2, Absolute Neuts (auto) 5.7, Absolute Lymphs (auto) 0.39 L, Nucleated RBC % 0, Differential Comment SCANNED 04/20/21 11:06: Sodium 133 L, Potassium 6.2 H*, Chloride 94 L, Carbon Dioxide 36.0 H, Anion Gap 3 L, BUN 104 H*, Creatinine 2.88 H, Estim Creat Clear Calc 21.68, Est GFR (MDRD) Af Amer 28 L, Est GFR (MDRD) Non-Af 23 L, BUN/Creatinine Ratio 36.1 H, Glucose 124 H, Calcium 9.7, Troponin I High Sens 313 H* 04/20/21 11:06: B-Natriuretic Peptide 611.6 H Micro: Microbiology 04/20/21 11:30 Nasal Secretion SARS-CoV-2 Antigen (Rapid) - Final Radiology Impression Chest X-Ray 04/20/21 11:35 IMPRESSION: No change in right lower lobe pneumonia or mass. Correlation with CT the chest with contrast would be useful to exclude mass. Electronically Signed: Franco Green MD at 12:10 EDT Tel , Service support , Chest CT 04/20/21 12:20 IMPRESSION: 1. 3.5 cm right hilar mass in the medial right middle lobe worrisome for bronchogenic carcinoma with some postobstructive atelectasis. Correlation with bronchoscopy would be useful. 2. Small bilateral pleural effusions with some bibasilar atelectasis. 3. Cardiomegaly with a small pericardial effusion. Electronically Signed: Franco Green MD at 13:59 EDT Tel , Service support , Assessment & Plan Assessment/Plan (1) Acute exacerbation of CHF (congestive heart failure): (2) Elevated troponin: (3) Hyperkalemia: (4) Dyspnea: PLAN: Patient is a 70-year-old male who presents to the ED at [facility] on 04/20/2021 with a chief complaint of shortness of breath. Patient will be admitted for management of acute on chronic CHF exacerbation. 1) acute on chronic systolic CHF exacerbation Patient reports a 2-month history of progressively worsening shortness of breath. Patient reports shortness of breath with nonproductive cough, patient also endorses orthopnea and paroxysmal nocturnal dyspnea. Patient endorses a 5 pound weight gain recently and does admit that his legs are more swollen than normal. Currently satting at 100% on 4 L via nasal cannula, respirations are tachypneic between 20 to 25 breaths/min. Vital signs stable patient afebrile. High-sensitivity troponin elevated at 313. BNP is elevated at 611. Rapid Covid is negative. Chest x-ray did reveal moderate cardiac enlargement with suspicious right lower lobe mass. Chest CT did confirm the presence of a 3.5 cm right hilar mass in the right middle lobe concerning for malignancy. Chest CT did also show cardiomegaly with small pericardial effusion and bilateral pleural effusions. Echocardiogram from July 2020 demonstrated severely dilated left ventricle, segmental systolic dysfunction, an estimated EF of 15%, mild to moderate mitral valve insufficiency, trivial pericardial effusion, and RVSP of 50 mmHg and evidence of diastolic dysfunction. Plan; admit to PCU for cardiac monitoring, initiate Lasix drip, trend cardiac enzymes, obtain pulmonary consult, elevate extremities, CBC and BMP in a.m., obtain updated echo, obtain magnesium, obtain phosphorus, obtain TSH, continue carvedilol, continue isosorbide dinitrate, Justus wraps ordered. 2) elevated troponin High-sensitivity troponin elevated at 313. Patient does have a pacemaker and follows with Dr. Kumar. Possibly demand secondary to #1. Continue to trend. 3) hyperkalemia Potassium currently 6.2. Lasix drip initiated as above, continue to trend BMP 4) COPD Do not believe patient is in acute exacerbation and believe shortness of breath is related to #1. Continue budesonide, continue DuoNebs, continue Tiotropium. 5) atrial fibrillation Patient is on carvedilol and amiodarone for rate control. Patient is on Xarelto for anticoagulation. Continue carvedilol, amiodarone and Xarelto. 6) right hilar mass Chest CT demonstrated a 3.5 cm right hilar mass in the right middle lobe concerning for bronchogenic carcinoma. Patient does endorse smoking 1.5 packs/day for 30 years. Patient does not currently smoke. Pulmonary consult obtained. CODE STATUS: DNRCC-A, no intubation Vaccination status: Patient has been fully vaccinated for COVID-19. Advance care planning: Patient identifies his son, Samy Avery, as his healthcare power of attorney law clerk. DVT prophylaxis - Xarelto Patient seen by Tony Rogers PA-C, under the supervision of Dr. Augustin. Documented by User: Dr. Keagan Augustin MD 04/20/21 16:44 HPI - General General Date of Admission: 04/20/21 Date of Service: 04/20/21 Chief Complaint: Shortness of breath progressively worsening for last 2 months HPI Narrative This 70-year-old gentleman man with history of chronic systolic heart failure EF 15% in July 2020 came to ED for progressive worsening of shortness of for 2 months along with weight gain of 5 pounds in 1 month, generalized swelling, loss of appetite and generalized weakness. Patient also states he could not lay flat and could not sleep at night. Patient has orthopnea and PND. He denies chest pain or tightness. BNP elevated. Chest x-ray and CT chest reviewed. Consistent with CHF. CT chest also showed right middle lobe 3.5 right hilar mass worrisome for carcinoma or some postobstructive atelectasis. As compared with previous CT scan in 2016 when patient had right large pleural effusion therefore above mass could not be ruled out at that time. Patient also had PFT partially reversible severe mixed ventilatory defect with symmetric reduction in diffusing capacity in February 2021. Patient has defibrillator. He follows Dr. Kumar [facility] Medical History Acute kidney injury superimposed on chronic kidney disease Acute on chronic combined severe HF Acute on chronic respiratory failure with hypoxia and hypercapnia Acute systolic congestive heart failure Anasarca Anemia Atherosclerotic heart disease of alutiiq coronary artery without angina pectoris Atrial fibrillation Bilateral atelectasis BPH (benign prostatic hypertrophy) Chronic anticoagulation Chronic systolic (congestive) heart failure COPD (chronic obstructive pulmonary disease) Diverticulosis Former smoker, stopped smoking in distant past History of left heart catheterization (LHC) (~08/09/20) History of stent insertion of renal artery Hyperlipemia Hypertension Hypothyroidism Ischemic cardiomyopathy 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 Pacemaker Peripheral arterial occlusive disease Pleural effusion Pulmonary hypertension Respiratory failure with hypoxia and hypercapnia Urine retention Warfarin-induced coagulopathy Home Medications albuterol sulfate 1 - 2 puff INHALATION Q4H PRN PRN 12/01/17 [History Last Taken 08/03/20] aspirin 81 mg PO DAILY@0800 12/01/17 [History Last Taken 08/07/20] budesonide-formoterol 2 puff INHALATION BID 12/01/17 [History Last Taken 12/01/17] levothyroxine 112 mcg PO DAILY 12/01/17 [History Last Taken 08/07/20] tamsulosin 0.4 mg PO DAILY 12/01/17 [History Last Taken 08/07/20] tiotropium bromide 2 puff INHALATION DAILY 12/01/17 [History Last Taken 08/07/20] ferrous sulfate 325 mg PO TIDCM #1 tab 12/04/17 [Rx Last Taken 08/07/20] calcitriol 0.25 mcg capsule 0.25 mcg PO MOWEFR cap 08/11/18 [History Last Taken Unknown] potassium chloride 10 mEq tablet,extended release(part/cryst) 10 meq PO DAILY tab 09/14/19 [History Last Taken 08/07/20] ezetimibe 10 mg tablet 10 mg PO QHS #90 tab 10/11/19 [Rx Last Taken Unknown] fenofibrate nanocrystallized 145 mg tablet 145 mg PO QHS #90 tab 10/11/19 [Rx Last Taken 08/06/20] rosuvastatin 40 mg tablet 40 mg PO QHS #90 tab 10/11/19 [Rx Last Taken 08/06/20] carvedilol 25 mg tablet 25 mg PO BID #180 tab 05/10/20 [Rx Last Taken 08/07/20] rivaroxaban 20 mg tablet 20 mg PO DAILY #30 tab 05/13/20 [Rx Last Taken 08/06/20] Handicap Placard #1 ea 08/29/20 [Rx Last Taken Unknown] furosemide 20 mg tablet 60 mg PO BID #180 tab 10/18/20 [Rx Last Taken Unknown] isosorbide dinitrate 5 mg tablet 5 mg PO TID #270 tab 10/28/20 [Rx Last Taken Unknown] spironolactone 25 mg tablet 25 mg PO DAILY #90 tab 12/24/20 [Rx Last Taken Unknown] amiodarone 200 mg PO BID 04/20/21 [History Last Taken Unknown] Allergy/AdvReac Type Severity Reaction Status Date / Time No Known Allergies Allergy Verified 04/20/21 10:51 Family History Father CAD (coronary artery disease) Mother CAD (coronary artery disease) Brother CAD (coronary artery disease) Hypertension Sister CAD (coronary artery disease) Hypertension Surgical History AICD (automatic cardioverter/defibrillator) present History of stent insertion of renal artery (03/14/08) Status post aortobifemoral bypass surgery (04/25/01) Stented coronary artery (12/27/13) Social History Smoking Status: Former smoker pack-years: 45 Tobacco: How many years used: 30 alcohol intake: never caffeine: Yes Type: coffee Physical Exam Narrative General: Alert, Oriented x3, Cooperative in respiratory distress HEENT: Atraumatic, PERRLA, EOMI, Normocephalic Oral: No Gingival or Mucosal Lesions/ Ulcerations Neck: Supple, elevated JVD, Negative Carotid Bruits Lungs: Air entry diminished in bilateral lung bases. Bilateral crackles present. Cardiovascular: Regular rate, Regular Rhythm, Normal S1, Normal S2, No murmurs Abdomen: Bowel Sounds Present, Soft, Non Tender, mild abdominal distention possible ascites : No renal angle tenderness. No suprapubic tenderness. Extremities: Bilateral lower extremity edema, Capillary Refill Less than 3 Seconds Skin: No rashes, No breakdown Musculoskeletal: No Tenderness to Palpation of Joints or Extremities Neurological: Cranial nerves II-XII grossly intact, DTR 2+/4 and Symmetrical, Neuro grossly intact Psych/Mental Status: Flat affect. Results Lab / Micro Data Result Diagrams: 04/20/21 11:06 04/20/21 11:06 Assessment & Plan Assessment/Plan (1) Acute exacerbation of CHF (congestive heart failure): PLAN: This patient was seen in conjunction with JOE Nguyen. I have independently interviewed and examined the patient and reviewed pertinent history, examination findings, laboratory and plan of management. I have reviewed the note and agree with the documented findings with the few additional points. In brief, patient is admitted for acute on chronic systolic heart failure with EF 15% status post AICD. Chest x-ray and CTA reviewed shows pulmonary congestion along with right middle lobe mass. Patient started on IV Lasix drip along with metolazone. 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 Patient is on carvedilol, amiodarone, Xarelto for history of A. fib. Carvedilol dose decreased along with holding parameter. Patient also on isosorbide mononitrate, rosuvastatin and ezetimib. Follow-up high-sensitivity troponin shows elevation. Hyperkalemia most likely secondary to spironolactone and potassium supplement. Potassium is 6.2. EKG reviewed and shows paced rhythm with PVCs. Kayexalate 30 g oral ordered stat. Hyperkalemia cocktail given in ED and repeat ordered Patient also has acute kidney injury on CKD. 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 Charges/Coding Visit Charges Inpatient E&M: 46281 Init Hosp L3 Procedures Hospitalists Procedures: 91315 Advncd Care Plan 30 Min
[2021-04-20 15:27] LABS: Magnesium 2.9 mg/dL (1.6-2.6)
[2021-04-20 16:47] LABS: Troponin-I HS 257 pg/mL (3.0-78.0)
[2021-04-20] MEDS: Furosemide 500 MG in Empty Viaflex 50 mL 1 EACH CONT INF (17:01)
[2021-04-20] MEDS: 0.9% Saline Lock 10 ML Syringe IV (17:13)
[2021-04-20] MEDS: metOLazone 5 MG Tablet PO (17:23)
[2021-04-20] MEDS: Sodium Polystyrene Sulfonate 15 GM/60 ML UDC 30 GM PO (17:55)
[2021-04-20] MEDS: Calcium Gluconate 1 GM/10 ML Vial IV (17:57)
[2021-04-20 18:07] LABS: Potassium 5.9 mmol/L (3.5-5.1)
[2021-04-20 18:29] LABS: Troponin-I HS 273 pg/mL (3.0-78.0)
[2021-04-20] MEDS: Ipratropium/Albuterol Sulfate 3 ML AMPUL.NEB INHALATION (19:15)
[2021-04-20] MEDS: Budesonide Respules 0.5 MG/2 ML AMPUL.NEB. INHALATION (19:18)
--- NOTE | 2021-04-20 20:48 | PCM.CONS.C ---
Assessment & Plan Assessment/Plan (1) History of stent insertion of renal artery: (2) Status post aortobifemoral bypass surgery: (3) Atherosclerotic heart disease of [place] coronary artery without angina pectoris: QUALIFIERS: [place] vs. 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 Cardiac consultation requested because of mild elevation of cardiac biomarkers/high sensitive troponin I [313] This patient had history of CAD with a multiple coronary artery stents from 2018 and 2013 to the proximal LAD As well has peripheral vascular disease with left renal artery stent and aortobifemoral bypass surgery. Patient has ischemic cardiomyopathy with ejection fraction in the range of 20% and had ICD device/generator has been change on October 2018 On this admission noted he had abnormal chest x-ray/CT chest with 3.5 cm right hilar mass suspicious for bronchogenic carcinoma As well had a small bilateral pleural effusion and a small pericardial effusion with cardiomegaly Cardiac recommendation and plan; 1. Patient stable clinically does not have any symptoms of chest pain, the elevated high sensitive troponin is likely secondary to type II [place] with a clinical diagnosis of acute on chronic systolic heart failure/presenting symptoms is progressive shortness of breath with weight gain and bilateral lower extremity swelling We will continue on Lasix IV 2. Patient has hyperkalemia with chronic renal insufficiency and he was given Kayexalate and to monitor electrolytes potassium and renal function 3. Patient has been on anticoagulation with Xarelto and will adjust the dose based on the creatinine clearance. 4. His primary box toe cutter Dr. Kumar will resume care. HPI Consult Data Date of Consult: 04/20/21 HPI Narrative Reason for Consultation: Acute on chronic systolic heart failure/NSTEMI HPI Narrative: MOE CAMEJO, is a 70 M who presents [facility] Medical History Acute kidney injury superimposed on chronic kidney disease Acute on chronic combined severe HF Acute on chronic respiratory failure with hypoxia and hypercapnia Acute systolic congestive heart failure Anasarca Anemia Atherosclerotic heart disease of [place] coronary artery without angina pectoris Atrial fibrillation Bilateral atelectasis BPH (benign prostatic hypertrophy) Chronic anticoagulation Chronic systolic (congestive) heart failure COPD (chronic obstructive pulmonary disease) Diverticulosis Former smoker, stopped smoking in distant past History of left heart catheterization (LHC) (~08/09/20) History of stent insertion of renal artery Hyperlipemia Hypertension Hypothyroidism Ischemic cardiomyopathy Left renal artery stenosis 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 Pacemaker Peripheral arterial occlusive disease Pleural effusion Pulmonary hypertension Respiratory failure with hypoxia and hypercapnia Urine retention Warfarin-induced coagulopathy Home Medications albuterol sulfate 1 - 2 puff INHALATION Q4H PRN PRN 12/01/17 [History Last Taken 08/03/20] aspirin 81 mg PO DAILY@0800 12/01/17 [History Last Taken 08/07/20] budesonide-formoterol 2 puff INHALATION BID 12/01/17 [History Last Taken 12/01/17] levothyroxine 112 mcg PO DAILY 12/01/17 [History Last Taken 08/07/20] tamsulosin 0.4 mg PO DAILY 12/01/17 [History Last Taken 08/07/20] tiotropium bromide 2 puff INHALATION DAILY 12/01/17 [History Last Taken 08/07/20] ferrous sulfate 325 mg PO TIDCM #1 tab 12/04/17 [Rx Last Taken 08/07/20] calcitriol 0.25 mcg capsule 0.25 mcg PO MOWEFR cap 08/11/18 [History Last Taken Unknown] potassium chloride 10 mEq tablet,extended release(part/cryst) 10 meq PO DAILY tab 09/14/19 [History Last Taken 08/07/20] ezetimibe 10 mg tablet 10 mg PO QHS #90 tab 10/11/19 [Rx Last Taken Unknown] fenofibrate nanocrystallized 145 mg tablet 145 mg PO QHS #90 tab 10/11/19 [Rx Last Taken 08/06/20] rosuvastatin 40 mg tablet 40 mg PO QHS #90 tab 10/11/19 [Rx Last Taken 08/06/20] carvedilol 25 mg tablet 25 mg PO BID #180 tab 05/10/20 [Rx Last Taken 08/07/20] rivaroxaban 20 mg tablet 20 mg PO DAILY #30 tab 05/13/20 [Rx Last Taken 08/06/20] Handicap Placard #1 ea 08/29/20 [Rx Last Taken Unknown] furosemide 20 mg tablet 60 mg PO BID #180 tab 10/18/20 [Rx Last Taken Unknown] isosorbide dinitrate 5 mg tablet 5 mg PO TID #270 tab 10/28/20 [Rx Last Taken Unknown] spironolactone 25 mg tablet 25 mg PO DAILY #90 tab 12/24/20 [Rx Last Taken Unknown] amiodarone 200 mg PO BID 04/20/21 [History Last Taken Unknown] Allergy/AdvReac Type Severity Reaction Status Date / Time No Known Allergies Allergy Verified 04/20/21 10:51 Family History Father CAD (coronary artery disease) Mother CAD (coronary artery disease) Brother CAD (coronary artery disease) Hypertension Sister CAD (coronary artery disease) Hypertension Surgical History (Updated 04/20/21 @ 20:[address] Fer Fay MD) AICD (automatic cardioverter/defibrillator) present History of stent insertion of renal artery (03/14/08) Status post aortobifemoral bypass surgery (04/25/01) Stented coronary artery Social History Smoking Status: Former smoker pack-years: 45 Tobacco: How many years used: 30 alcohol intake: never caffeine: Yes Type: coffee ROS ROS Narrative Review of 14 systems unremarkable apart from progressive symptoms of shortness of breath over the last 2 months, weight gain and bilateral lower extremity swelling. No symptoms of chest pain reported Physical Exam Narrative Patient seen and examined at bedside in PCU Is lying comfortable in bed not in acute distress monitoring specialist showed underlying atrial fibrillation with paced ventricular rhythm and his blood pressure has been stable Cardiovascular exam S1-S2 is irregular no murmur no pericardial rub Chest exam diminished air entry bilateral. Examination lower extremity bilateral lower extremity edema. Objective Data Vital Signs: Vital Signs Temp Pulse Resp BP Pulse Ox 97.5 F L 65 20 H 127/58 H 91 04/20/21 15:24 04/20/21 19:15 04/20/21 19:15 04/20/21 15:24 04/20/21 19:15 Oxygen Flow Rate (L/min) 3 Oxygen Delivery Method Nasal Cannula Weight: 226 lb 13.69 oz Body Mass Index (BMI) 35.5 Intake & Output: Intake and Output for Last 24 Hours 04/18/21 04/19/21 04/20/21 23:59 23:59 23:59 Intake Total Balance Lab / Micro Data Result Diagrams: 04/20/21 11:06 04/20/21 17:46 Labs: Laboratory Results - last 24 hr 04/20/21 11:06: WBC 6.6, RBC 3.51 L, Hgb 11.1 L, Hct 37.7 L, MCV 107.4 H, MCH 31.6, MCHC 29.4 L, RDW Std Deviation 59.7 H, RDW Coeff of Bhavna 15.0 H, Plt Count 143 L, MPV 11.5, Immature Gran % (Auto) 0.600, Neut % (Auto) 85.5 H, Lymph % (Auto) 5.9 L, [place] % (Auto) 7.6, Eos % (Auto) 0.2, Baso % (Auto) 0.2, Absolute Neuts (auto) 5.7, Absolute Lymphs (auto) 0.39 L, Nucleated RBC % 0, Differential Comment SCANNED 04/20/21 11:06: Sodium 133 L, Potassium 6.2 H*, Chloride 94 L, Carbon Dioxide 36.0 H, Anion Gap 3 L, BUN 104 H*, Creatinine 2.88 H, Estim Creat Clear Calc 21.68, Est GFR (MDRD) Af Amer 28 L, Est GFR (MDRD) Non-Af 23 L, BUN/Creatinine Ratio 36.1 H, Glucose 124 H, Calcium 9.7, Troponin I High Sens 313 H* 04/20/21 11:06: B-Natriuretic Peptide 611.6 H 04/20/21 11:06: Magnesium 2.9 H 04/20/21 15:50: Troponin I High Sens 257 H* 04/20/21 17:46: Troponin I High Sens 273 H* 04/20/21 17:46: Potassium 5.9 H Micro: Microbiology 04/20/21 11:30 Nasal Secretion SARS-CoV-2 Antigen (Rapid) - Final Cardiology Labs/Tests 04/20/21 11:06: WBC 6.6, RBC 3.51 L, Hgb 11.1 L, Hct 37.7 L, MCV 107.4 H, MCH 31.6, MCHC 29.4 L, Plt Count 143 L, MPV 11.5, Immature Gran % (Auto) 0.600, Neut % (Auto) 85.5 H, Lymph % (Auto) 5.9 L, [place] % (Auto) 7.6, Eos % (Auto) 0.2, Baso % (Auto) 0.2, Absolute Neuts (auto) 5.7, Nucleated RBC % 0 04/20/21 11:06: Sodium 133 L, Potassium 6.2 H*, Chloride 94 L, Carbon Dioxide 36.0 H, Anion Gap 3 L, BUN 104 H*, Creatinine 2.88 H, Est GFR (MDRD) Af Amer 28 L, Est GFR (MDRD) Non-Af 23 L, BUN/Creatinine Ratio 36.1 H, Glucose 124 H, Calcium 9.7 04/20/21 11:06: B-Natriuretic Peptide 611.6 H 04/20/21 11:06: Magnesium 2.9 H 04/20/21 17:46: Potassium 5.9 H Rhythm: A. fib with paced ventricular rhythm EKG: Atrial fibrillation with paced ventricular rhythm Radiography Diagnostic Testing: Radiology Impression Chest X-Ray 04/20/21 11:35 IMPRESSION: No change in right lower lobe pneumonia or mass. Correlation with CT the chest with contrast would be useful to exclude mass. Electronically Signed: Franco Green MD at 12:10 EDT Tel , Service support , Chest CT 04/20/21 12:20 IMPRESSION: 1. 3.5 cm right hilar mass in the medial right middle lobe worrisome for bronchogenic carcinoma with some postobstructive atelectasis. Correlation with bronchoscopy would be useful. 2. Small bilateral pleural effusions with some bibasilar atelectasis. 3. Cardiomegaly with a small pericardial effusion. Electronically Signed: Franco Green MD at 13:59 EDT Tel , Service support ,
[2021-04-20] MEDS: Atorvastatin Calcium 80 MG Tablet PO (21:10)
[2021-04-20] MEDS: Ezetimibe 10 MG Tablet PO (21:10)
[2021-04-20] MEDS: Carvedilol 12.5 MG Tablet PO (21:11)
[2021-04-20] MEDS: Amiodarone 200 MG Tablet PO (21:11)
[2021-04-20] MEDS: Isosorbide DN 10 MG Tablet 5 MG PO (21:20)
[2021-04-21] VITALS (12 sets, daily range): BP systolic 98–123; BP diastolic 42–51; PULSE 61–73; RESP 17–20; TEMP 36.3–36.8; O2SAT 95–100
[2021-04-21] MEDS: Levothyroxine 112 MCG Tablet PO (05:20)
[2021-04-21] MEDS: Isosorbide DN 10 MG Tablet 5 MG PO ×3 (05:54→21:16)
--- NOTE | 2021-04-21 05:55 | ECHOCS_ITS ---
Reason For Study: CHF Procedure This was a 2D Doppler, Color Flow transthoracic echocardiogram. The study was technically difficult. Contrast injection was performed. Exam performed portable in patient room. Left Ventricle Severely dilated left ventricle. Severe segmental systolic dysfunction (see wall motion). The estimated ejection fraction is 15 %. Diastolic function is indeterminate. Anterio-Basal: Not visualized. Lateral-Basal: Not visualized. Posterior-Basal: Akinetic. Infero-Basal: Akinetic. Basal inferoseptal: Hypokinetic. Basal anteroseptal: Hypokinetic. Mid-Anterior : Hypokinetic. Mid- Lateral : Hypokinetic. Mid-Posterior: Akinetic. Mid-Inferior: Akinetic. Mid-inferoseptal : Akinetic. Mid-anteroseptal : Hypokinetic. [place] : Akinetic. Right Ventricle Normal RV size. ICD or pacer leads identified within the right ventricle. Normal systolic function. Atria The left atrium is severely enlarged. The right atrium is mildly enlarged. ICD or pacer leads identified within the right atrium. No doppler evidence for ASD. Mitral Valve There is no mitral annular calcification. Mild papillary muscle dysfunction of the mitral valve. Moderate (2+) eccentric mitral valve insufficiency. Tricuspid Valve Normal tricuspid valve. Mild tricuspid valve insufficiency. Right ventricular systolic pressure estimated to be 50 mmHg. Aortic Valve Trisinus/trileaflet aortic valve. Moderate focal aortic valve calcification. Pulmonic Valve The pulmonic valve is not well visualized. Trivial pulmonic valve insufficiency. Great Vessels Normal sized aortic root. Pericardium/Pleural Trivial pericardial effusion. There are no echocardiographic indications of cardiac tamponade. Medication Diluted definity 2ml given slow IV push to enhance endocardial definition. MMode/2D Measurements & Calculations LVIDd: 7.4 cm IVSd: 1.1 cm Ao root diam: 3.6 cm LVIDs: 6.6 cm LVPWd: 0.85 cm RVDd: 4.0 cm FS: 11.4 % LAV(MOD-bp): 105.3 ml LVAd ap4: 52.1 cm2 SV(MOD-sp4): 46.8 ml LAV(MOD-bp) Indexed: 50.2 ml/m2 LVLd ap4: 9.7 cm LAV(MOD-sp2): 81.2 ml EDV(MOD-sp4): 229.2 ml LAV(MOD-sp4): 113.1 ml EDV(sp4-el): 236.6 ml LVAs ap4: 44.7 cm2 LVLs ap4: 9.0 cm ESV(MOD-sp4): 182.4 ml ESV(sp4-el): 188.1 ml EF(MOD-sp4): 20.4 % EF(sp4-el): 20.5 % SV(sp4-el): 48.5 ml LA A4 area: 32.4 cm2 LA dimension(2D): 5.6 cm RA A4 area: 20.6 cm2 Doppler Measurements & Calculations MV E max enio: 110.1 cm/sec Ao V2 max: 132.0 cm/sec LV V1 max: 90.5 cm/sec Ao max P.0 mmHg LV V1 max P.3 mmHg PA V2 max: 87.2 cm/sec TR max enio: 322.5 cm/sec TR max P.6 mmHg ECHO/Echo Complete W/ Contrast Interpretation Summary The study was technically difficult. Contrast injection was performed. Severely dilated left ventricle. Severe segmental systolic dysfunction (see wall motion). The estimated ejection fraction is 15 %. The left atrium is severely enlarged. The right atrium is mildly enlarged. Mild papillary muscle dysfunction of the mitral valve. Moderate (2+) eccentric mitral valve insufficiency. Mild tricuspid valve insufficiency. Moderate focal aortic valve calcification. Trivial pulmonic valve insufficiency. Trivial pericardial effusion. There are no echocardiographic indications of cardiac tamponade. Right ventricular systolic pressure estimated to be 50 mmHg. Diastolic function is indeterminate. ICD or pacer leads identified within the right atrium ICD or pacer leads identified within the right ventricle. Ordering Physician: Keagan Augustin Referring Physician: Tyrone Bhakta Performed By: Montse Dallas RDCS
[2021-04-21] MEDS: Budesonide Respules 0.5 MG/2 ML AMPUL.NEB. INHALATION ×2 (07:02→19:22)
[2021-04-21] MEDS: Ipratropium/Albuterol Sulfate 3 ML AMPUL.NEB INHALATION ×2 (07:02→19:22)
[2021-04-21 07:51] LABS: Anion Gap 4 (5-15); BUN 107 mg/dL (7-18); BUN/Creat Ratio 36.8 RATIO (10-20); Calcium,Total 9.5 mg/dL (8.5-10.1); Chloride 95 mmol/L (98-107); Cholesterol 136 mg/dL (200); Creatinine, Serum 2.91 mg/dL (0.70-1.30); EST Glomerular Filtration Rate 23 mL/min (>60); Est Glom Filt Rate - Afr Amer 28 mL/min (>60); Estimated Creatinine Clearance 21.45 ml/min; Glucose 84 mg/dL (74-106); High Density Lipoprotein 24 mg/dL; Magnesium 2.7 mg/dL (1.6-2.6); Phosphorus 3.9 mg/dL (2.5-4.9); Potassium 4.4 mmol/L (3.5-5.1); Sodium Level 137 mmol/L (136-145); Thyroid Stim Hormone (TSH) 0.73 uIU/mL (0.358-3.74); Triglycerides 112 mg/dL; Very Low Density Lipoprotein 22 mg/dL (5-40)
[2021-04-21] MEDS: Tamsulosin HCl 0.4 MG Capsule PO (10:51)
[2021-04-21] MEDS: metOLazone 5 MG Tablet PO (10:51)
[2021-04-21] MEDS: Calcitriol 0.25 MCG Capsule PO (10:51)
[2021-04-21] MEDS: Aspirin E.C. 81 MG Tablet PO (10:52)
[2021-04-21] MEDS: Amiodarone 200 MG Tablet PO ×2 (10:52→21:16)
[2021-04-21] MEDS: Carvedilol 12.5 MG Tablet PO ×2 (10:52→21:16)
--- NOTE | 2021-04-21 12:12 | PCM.PN.CARD ---
Subjective Subjective The patient was evaluated earlier this day. He denied any ongoing chest discomfort. He noted his main concern appeared to be his shortness of breath and dyspnea as well as waxing and waning lower extremity peripheral pitting edema. Objective Data Vital Signs: Vital Signs Temp Pulse Resp BP Pulse Ox 97.4 F L 68 20 H 100/46 L 99 04/21/21 08:48 04/21/21 10:55 04/21/21 08:48 04/21/21 10:55 04/21/21 08:48 Oxygen Flow Rate (L/min) 3 Oxygen Delivery Method Nasal Cannula Weight: 218 lb 0.595 oz Body Mass Index (BMI) 35.5 Intake & Output: Intake and Output for Last 24 Hours 04/19/21 04/20/21 04/21/21 23:59 23:59 23:59 Intake Total 220 / 330 477 / 477 Output Total 1600 / 1600 Balance 220 / 330 -1123 / -1123 Lab / Micro Data Result Diagrams: 04/20/21 11:06 04/21/21 06:00 Labs: Laboratory Results - last 24 hr 04/20/21 11:06: Magnesium 2.9 H 04/20/21 15:50: Troponin I High Sens 257 H* 04/20/21 17:46: Troponin I High Sens 273 H* 04/20/21 17:46: Potassium 5.9 H 04/21/21 06:00: Sodium 137, Potassium 4.4, Chloride 95 L, Carbon Dioxide 38.0 H, Anion Gap 4 L, BUN 107 H*, Creatinine 2.91 H, Estim Creat Clear Calc 21.45, Est GFR (MDRD) Af Amer 28 L, Est GFR (MDRD) Non-Af 23 L, BUN/Creatinine Ratio 36.8 H, Glucose 84, Calcium 9.5, Phosphorus 3.9, Magnesium 2.7 H, Triglycerides 112, Cholesterol 136, LDL Cholesterol 90, VLDL Cholesterol 22, HDL Cholesterol 24 L, TSH 0.73 Micro: Microbiology 04/20/21 11:30 Nasal Secretion SARS-CoV-2 Antigen (Rapid) - Final Cardiology Labs/Tests 04/20/21 11:06: Magnesium 2.9 H 04/20/21 17:46: Potassium 5.9 H 04/21/21 06:00: Sodium 137, Potassium 4.4, Chloride 95 L, Carbon Dioxide 38.0 H, Anion Gap 4 L, BUN 107 H*, Creatinine 2.91 H, Est GFR (MDRD) Af Amer 28 L, Est GFR (MDRD) Non-Af 23 L, BUN/Creatinine Ratio 36.8 H, Glucose 84, Calcium 9.5, Phosphorus 3.9, Magnesium 2.7 H, Triglycerides 112, Cholesterol 136, LDL Cholesterol 90, VLDL Cholesterol 22, HDL Cholesterol 24 L Rhythm: Electronic ventricular paced rhythm ECHO: 08-07-2020 Interpretation Summary The study was technically difficult. Severely dilated left ventricle. Severe segmental systolic dysfunction (see wall motion). The estimated ejection fraction is 15 %. The left atrium is severely enlarged. The right atrium is mildly enlarged. Mild papillary muscle dysfunction of the mitral valve. Mild-Moderate (1-2+) mitral valve insufficiency. Mild tricuspid valve insufficiency. Mild focal aortic valve calcification. Mild (1+) pulmonic valve insufficiency. Mildly dilated aortic root. Trivial pericardial effusion. There are no echocardiographic indications of cardiac tamponade. Right ventricular systolic pressure estimated to be 50 mmHg. There is evidence of diastolic dysfunction. Stress Test: Stress Test Report Date: 08-08-2020 Procedure: Pharmacologic stress nuclear imaging study Indications: Atrial fibrillation/atrial flutter; ventricular tachycardia; CAD, PCI, ischemic mediated cardiomyopathy, chronic systolic CHF, abnormal cardiac enzymes Consent: Per the patient Procedure: The patient underwent pharmacologic (Regadenoson) evaluation with a peak heart rate of 75 beats per minute (50%predicted maximal heart rate) and a peak blood pressure of 110/62 mmHg. The baseline ECG demonstrated sinus rhythm; nonspecific IVCD. The peak pharmacologic ECG demonstrated no obvious ECG changes. There was an occasional PVC during recovery. There was no complaint of chest discomfort during pharmacologic infusion or recovery. The examination was discontinued secondary to completion of protocol. Impression: 1. Pharmacologic (Regadenoson) evaluation 2. Peak pharmacologic ECG with no obvious ECG changes. 3. There was an occasional PVC during recovery. 4. Nuclear images pending Myocardial perfusion imaging study: Technique: The patient was injected with 14.9 millicuries of technetium 99m Cardiolite and subsequently rest SPECT Cardiolite nuclear imaging was obtained in the horizontal long, vertical long, and short axis views. The patient underwent pharmacologic (Regadenoson) evaluation with a peak heart rate of 75 beats per minute (50% percent predicted maximal heart rate) and a peak blood pressure of 110/62 mmHg. The patient was injected with 44.5 millicuries of technetium 99m Cardiolite and subsequently stress SPECT Cardiolite nuclear imaging was obtained in the horizontal long, vertical long, and short axis views. A gated Cardiolite study at peak stress was obtained. Interpretation: Rest and stress SPECT Cardiolite nuclear imaging status post realignment, normalization, and attenuation correction demonstrate the appearance of diminished absence of tracer uptake in portions of the inferior and lateral segments at both rest and stress which status post stress appears to be more prominent in portions of the distal inferior/inferoapical and distal lateral/lateral apical segments. There is diminished end systolic thickening and brightening. The gated Cardiolite study demonstrates diminished myocardial thickening and inward wall motion. The reported LVEF is 17%. Impression: 1. Rest and stress SPECT her nuclear imaging demonstrate myocardial perfusion changes compatible with an area of previous myocardial injury/infarction involving portions of the inferior and lateral segments with post stress myocardial perfusion changes appearing compatible with akira-infarct related myocardial ischemia in portions of the distal inferior/inferoapical and distal lateral/lateral apical segments. 2. The gated Cardiolite study reports an LVEF of 17%. Cardiac Cath: 08-09-2020 CONCLUSIONS [place] Multivessel CAD LAD: stent: patent LCX: stent: patent Left to Left collateral flow Left to Right collateral flow RECOMMENDATIONS Risk factor modification Medical therapy DESCRIPTION OF PROCEDURE The patient arrived to the procedure lab. The risks and benefits of the procedure as well as a full description of our services here and current unavailability of surgical backup were fully explained to the patient and/or their significant other prior to the catheterization. The Timeout was completed, verifying the correct patient and procedure. The patient's procedural site was prepped and draped in the usual fashion. Local anesthetic was given subcutaneously to right brachial region with Lidocaine 2%. Using a modified Seldinger technique, arterial access was obtained via the right brachial artery, a 6Fr sheath was inserted. Left Coronary Artery selective angiography was performed in multiple views using a 5 Fr. 4.0 [place] catheter. Left Coronary Artery selective angiography was performed in multiple views using a 5 Fr. JL3.5 catheter. Right Coronary Artery selective angiography was then performed in multiple views using a 5 Fr. JR 4 catheter.The arterial sheath was pulled and manual compression applied until hemostasis is achieved. CORONARY ANGIOGRAPHY DOMINANCE: Right Dominant LEFT HEART ASSESSMENT Left Ventricular Ejection Fraction: Not assessed LEFT MAIN: very short bifurcating vessel (almost separate ostia to the LAD / LCX), Angiographically normal LEFT ANTERIOR DESCENDING ARTERY: PROX LAD: Previously placed stent is patent MID LAD: Mild luminal irregularities DISTAL LAD: Mild luminal irregularities SEPTAL: : bifurcating vessel: ostial: 50 - 75 % Stenosis CIRCUMFLEX ARTERY: PROX CIRC: Previously placed stent is patent, Mild luminal irregularities MID CIRC: Mild luminal irregularities OM 1: Ostial - is occluded: appears to fill late and partially from left to left collateral flow RIGHT CORONARY ARTERY: distal RCA system: fills late and partially from left to right collateral flow PROX RCA: is occluded COLLATERAL FLOW: Collateral flow from Left to Left Collateral flow from Left to Right ICD: 02-04-2021 Atrial pacing: Approximately 99% of the time No VT/VF episodes 3 AT/AF episodes less than 0.1% total time Battery longevity 7.4 years Normal remote ICD function Radiography Diagnostic Testing: Radiology Impression Chest CT 04/20/21 12:20 IMPRESSION: 1. 3.5 cm right hilar mass in the medial right middle lobe worrisome for bronchogenic carcinoma with some postobstructive atelectasis. Correlation with bronchoscopy would be useful. 2. Small bilateral pleural effusions with some bibasilar atelectasis. 3. Cardiomegaly with a small pericardial effusion. Electronically Signed: Franco Green MD at 13:59 EDT Tel , Service support , Physical Exam Const alert, oriented x3 and no apparent distress Orientation / Consciousness: awake HEENT normocephalic, head/scalp atraumatic and hearing grossly normal bilaterally Eyes PERRL, EOMs intact bilaterally and conjunctivae normal Neck full ROM, supple and no JVD Resp Auscultation: diminished lung sounds bilateral lower Cardio regular rate, regular rhythm, S1 normal heart sound and S2 normal heart sound GI normal to inspection, nondistended, normoactive bowel sounds Extremity General Extremity: edema bilateral lower extremity (Bilateral lower extremities: Positive Justus wrap) Details: moderate Psych mental status grossly normal Assessment & Plan Assessment/Plan (1) Elevated troponin: PLAN: The patient does have elevated troponins. He has been evaluated noninvasively and invasively earlier this year. At the present time the working diagnosis is that his elevated troponin is a type II non-ST segment elevation SD secondary to his acute on chronic systolic mediated CHF. (2) Atherosclerotic heart disease of [place] coronary artery without angina pectoris: QUALIFIERS: [place] vs. transplanted heart: [place] heart Qualified Code(s): I25.10 - Atherosclerotic heart disease of [place] coronary artery without angina pectoris PLAN: The patient has a history of underlying CAD. He has been evaluated earlier this year both noninvasively and invasively. At the moment he will continue medical management. (3) Stented coronary artery: PLAN: The patient's previous cardiac catheterization performed earlier this year as noted. At the moment he will continue medical therapy. (4) Acute exacerbation of CHF (congestive heart failure): PLAN: The patient will need to continue evaluation care for his ongoing acute on chronic systolic mediated CHF. He will continue medical management/support as deemed appropriate. (5) Chronic systolic (congestive) heart failure: PLAN: Again the patient has a history of chronic systolic mediated CHF. This is thought secondary to an underlying ischemic mediated cardiomyopathy. At the moment he appears to have acute on chronic related issues. He will continue medical management. (6) Ischemic cardiomyopathy: PLAN: His left ventricular wall motion systolic function can be reassessed with a transthoracic echocardiogram. (7) Atrial fibrillation: QUALIFIERS: Atrial fibrillation type: chronic Qualified Code(s): I48.2 - Chronic atrial fibrillation PLAN: He has a history of underlying atrial dysrhythmia/atrial fibrillation. He will continue medical therapy and follow-up. (8) History of implantable cardioverter-defibrillator (ICD) placement: PLAN: His most recent ICD evaluation is as noted. He will continue medical management and follow-up. (9) Status post aortobifemoral bypass surgery: PLAN: He does have a history of peripheral arterial occlusive disease. Certainly this needs to be taken into consideration with respect to any future invasive evaluation/care. (10) History of stent insertion of renal artery: PLAN: He has a history of PCI to the renal artery system. He will continue medical therapy and follow-up. (11) Hyperlipemia: QUALIFIERS: Hyperlipidemia type: pure hypercholesterolemia Qualified Code(s): E78.00 - Pure hypercholesterolemia, unspecified; E78.0 - Pure hypercholesterolemia PLAN: He will continue risk factor modification medical management as deemed appropriate. (12) Hypertension: QUALIFIERS: Hypertension type: essential hypertension Qualified Code(s): I10 - Essential (primary) hypertension PLAN: His blood pressure will need to be followed and his medications adjusted during his hospital course. (13) Lung mass: PLAN: He does have a history of underlying pulmonary lung mass. He will need continued valuation care per internal medicine and possibly pulmonology. Addt'l Comments This note was generated using a voice recognition system and there may be incorrect words, spelling or punctuation that were not noted when reviewing the office note prior to saving. Procedure Criteria Type of Procedure Procedure Type: Elective Elective Risks - COVID COVID Risk Discussion: The surgeon/proceduralist and patient have discussed in detail the risk of exposure to and/or potential harm posed by the COVID-19 virus with having a surgery/procedure at this time versus the risk of delaying the surgery/procedure. It is not possible to know either the risk of delaying the surgery or procedure or chance of getting an infection with perfect accuracy, but a joint decision was made between the patient and the surgeon/proceduralist to proceed at this time with the scheduled surgery/procedure as indicated on the consent form.
--- NOTE | 2021-04-21 12:39 | CON.PCM.CC_ITS ---
Assessment & Plan Assessment/Plan (1) Lung mass: PLAN: RECOMMENDATIONS: 1. Continue further volume optimization per hospitalist and cardiology. 2. Wean supplemental oxygen as tolerated to maintain saturations at or above 90%. 3. Continue scheduled bronchodilator therapy. 4. Recommend outpatient pulmonary follow-up within 2 weeks of discharge. We will help coordinate the biopsy of his lung mass and the withholding of his systemic anticoagulant. IMPRESSIONS: 1. Acute decompensated heart failure Will defer medical management to hospitalist and cardiology. The patient is currently undergoing volume optimization with IV diuretic therapy. He does appear to be maintaining appropriate oxygen saturations on his baseline 3 L/min. Continue to encourage incentive spirometer use and mobilize patient as tolerated. 2. Severe obstructive lung disease The patient was recently noted to have a partially reversible severe mixed ventilatory defect on pulmonary function studies in February 2021. He would benef it from further outpatient pulmonary optimization. In the interim, it would be reasonable to continue scheduled bronchodilator therapy as ordered. 3. Lung mass CT chest revealed findings concerning for a large right hilar lung mass. This is certainly worrisome for underlying malignancy. However, the patient is being maintained on Xarelto on an outpatient basis, which has been continued while admitted to the hospital. This would preclude our ability to obtain a CT-guided lung biopsy for at least 72 hours. At this time, I would recommend that the patient follow-up in the pulmonary medicine clinic within 2 weeks of his discharge. At that time, we will coordinate the plan for a biopsy. He would be a candidate for either percutaneous or bronchoscopic approach, which ever can be done at the earliest time slot. The patient is agreeable to outpatient follow-up and coordination. 4. History of tobacco dependency in remission/hypertension/hyperl ipidemia/atrial fibrillation Complicates care, management, recovery and prognosis. Continue home medications as indicated. Please ensure that the patient has a scheduled follow-up office visit in the pulmonary medicine clinic within 2 weeks of discharge. This note was generated with [employer] dictation software. It may contain incorrect words, spelling, and punctuation that were not noted in checking the note before signing. HPI Consult Data Date of Consult: 04/21/21 HPI Narrative Reason for Consultation: Lung mass HPI Narrative: The patient is a 70-year-old male, with a history as outlined below, who presented to the emergency department on April 20 with reported dyspnea. Recent pulmonary function studies revealed evidence of a partially reversible severe mixed ventilatory defect with symmetric reduction in diffusing capacity. The patient is currently being followed in the cardiology clinic due to a history of ischemic cardiomyopathy, peripheral vascular disease, atrial fibrillation and pulmonary hypertension. The patient does have a smoking history of 45 pack years, having quit completely in 1999. The patient also reports that he utilizes supplemental oxygen at 3 L/min at his baseline. On presentation to the emergency department, the patient was noted to be afebrile and hemodynamically stable. Initial laboratory evaluation revealed no evidence of a leukocytosis. Chemistry profile was notable for a sodium of 133, potassium of 6.2, bicarbonate of 36, BUN of 104 and creatinine of 2.8. Troponin and BNP were elevated. A CT chest was obtained after a chest x-ray revealed an abnormality. CT imaging revealed a 3.5 cm mass within the medial aspect of the right middle lobe with associated postobstructive atelectasis. The patient was subsequently placed on a Lasix drip and admitted to the hospital for further management. Of note, the patient is on Xarelto on an outpatient basis. [facility] Medical History (Updated 04/21/21 @ 12:[address] Eros Kumar MD) Acute kidney injury superimposed on chronic kidney disease Acute on chronic combined severe HF Acute on chronic respiratory failure with hypoxia and hypercapnia Acute systolic congestive heart failure Anasarca Anemia Atherosclerotic heart disease of [place] coronary artery without angina pectoris Atrial fibrillation Bilateral atelectasis BPH (benign prostatic hypertrophy) Chronic anticoagulation Chronic systolic (congestive) heart failure COPD (chronic obstructive pulmonary disease) Diverticulosis Former smoker, stopped smoking in distant past History of left heart catheterization (LHC) (~08/09/20) History of stent insertion of renal artery Hyperlipemia Hypertension Hypothyroidism Ischemic cardiomyopathy Left renal artery stenosis residential (current) use of anticoagulants Pacemaker Peripheral arterial occlusive disease Pleural effusion Pulmonary hypertension Respiratory failure with hypoxia and hypercapnia Urine retention Warfarin-induced coagulopathy Home Medications albuterol sulfate 1 - 2 puff INHALATION Q4H PRN PRN 12/01/17 [History Last Taken 08/03/20] aspirin 81 mg PO DAILY@0800 12/01/17 [History Last Taken 08/07/20] budesonide-formoterol 2 puff INHALATION BID 12/01/17 [History Last Taken 12/01] levothyroxine 112 mcg PO DAILY 12/01/17 [History Last Taken 08/07/20] tamsulosin 0.4 mg PO DAILY 12/01/17 [History Last Taken 08/07/20] tiotropium bromide 2 puff INHALATION DAILY 12/01/17 [History Last Taken 08/07/20] ferrous sulfate 325 mg PO TIDCM #1 tab 12/04/17 [Rx Last Taken 08/07/20] calcitriol 0.25 mcg capsule 0.25 mcg PO MOWEFR cap 08/11/18 [History Last Taken Unknown] potassium chloride 10 mEq tablet,extended release(part/cryst) 10 meq PO DAILY tab 09/14/19 [History Last Taken 08/07/20] ezetimibe 10 mg tablet 10 mg PO QHS #90 tab 10/11/19 [Rx Last Taken Unknown] fenofibrate nanocrystallized 145 mg tablet 145 mg PO QHS #90 tab 10/11/19 [Rx Last Taken 08/06/20] rosuvastatin 40 mg tablet 40 mg PO QHS #90 tab 10/11/19 [Rx Last Taken 08/06/20] carvedilol 25 mg tablet 25 mg PO BID #180 tab 05/10/20 [Rx Last Taken 08/07/20] rivaroxaban 20 mg tablet 20 mg PO DAILY #30 tab 05/13/20 [Rx Last Taken 08/06/20] Handicap Placard #1 ea 08/29/20 [Rx Last Taken Unknown] furosemide 20 mg tablet 60 mg PO BID #180 tab 10/18/20 [Rx Last Taken Unknown] isosorbide dinitrate 5 mg tablet 5 mg PO TID #270 tab 10/28/20 [Rx Last Taken Unknown] spironolactone 25 mg tablet 25 mg PO DAILY #90 tab 12/24/20 [Rx Last Taken Unknown] amiodarone 200 mg PO BID 04/20/21 [History Last Taken Unknown] Allergy/AdvReac Type Severity Reaction Status Date / Time No Known Allergies Allergy Verified 04/20/21 10:51 Family History Father CAD (coronary artery disease) Mother CAD (coronary artery disease) Brother CAD (coronary artery disease) Hypertension Sister CAD (coronary artery disease) Hypertension Surgical History (Updated 04/21/21 @ 12:[address] Eros Kumar MD) AICD (automatic cardioverter/defibrillator) present History of implantable cardioverter-defibrillator (ICD) placement History of stent insertion of renal artery (03/14/08) Status post aortobifemoral bypass surgery (04/25/01) Stented coronary artery Social History Smoking Status: Former smoker pack-years: 45 Tobacco: How many years used: 30 alcohol intake: never caffeine: Yes Type: coffee ROS Constitutional Constitutional: Denies chills, fatigue or fever(s) Eyes Eyes: Denies blurry vision or change in vision ENT HEENT: Denies dizziness, dysphagia, epistaxis or headache(s) Cardiovascular Cardiovascular: Reports dyspnea and edema; Denies chest pain or dizziness Respiratory/Chest Respiratory/Chest: Reports dyspnea Gastrointestinal Gastrointestinal: Denies abdominal pain, diarrhea, nausea or vomiting Genitourinary Genitourinary: Denies difficulty urinating Musculoskeletal Musculoskeletal: Denies arthralgias, back pain or joint pain Integumentary Integumentary: Denies lesions, rash or skin ulcer Neurologic Neurologic: Denies abnormal gait Psychiatric Psychiatric: Denies anxiety or depression Endocrine Endocrinology: Denies fatigue or polydipsia Hematologic/Lymphatic Hematologic/Lymphatic: Denies easy bleeding or easy bruising Physical Exam Const alert and no apparent distress General Appearance: cooperative Nutritional Appearance: obese HEENT normocephalic and head/scalp atraumatic Eyes PERRL, EOMs intact bilaterally and conjunctivae normal Neck supple General: trachea midline Chest inspection of chest normal Resp Effort and Inspection: able to speak in complete sentences Auscultation: rales and diminished lung sounds; Negative for rhonchi or wheezes Cardio regular rate and regular rhythm GI normal to inspection, nondistended, normoactive bowel sounds Extremity no clubbing, cyanosis or edema Skin no rashes or lesions noted Neuro moves all extremities and no focal motor deficits Psych Mood & Affect: flat affect Lab / Micro Data Result Diagrams: 04/20/21 11:06 04/21/21 06:00 Labs: Laboratory Results - last 24 hr 04/20/21 11:06: Magnesium 2.9 H 04/20/21 15:50: Troponin I High Sens 257 H* 04/20/21 17:46: Troponin I High Sens 273 H* 04/20/21 17:46: Potassium 5.9 H 04/21/21 06:00: Sodium 137, Potassium 4.4, Chloride 95 L, Carbon Dioxide 38.0 H, Anion Gap 4 L, BUN 107 H*, Creatinine 2.91 H, Estim Creat Clear Calc 21.45, Est GFR (MDRD) Af Amer 28 L, Est GFR (MDRD) Non-Af 23 L, BUN/Creatinine Ratio 36.8 H , Glucose 84, Calcium 9.5, Phosphorus 3.9, Magnesium 2.7 H, Triglycerides 112, Cholesterol 136, LDL Cholesterol 90, VLDL Cholesterol 22, HDL Cholesterol 24 L, TSH 0.73 Micro: Microbiology 04/20/21 11:30 Nasal Secretion SARS-CoV-2 Antigen (Rapid) - Final Radiology Impression Chest CT 04/20/21 12:20 IMPRESSION: 1. 3.5 cm right hilar mass in the medial right middle lobe worrisome for bronchogenic carcinoma with some postobstructive atelectasis. Correlation with bronchoscopy would be useful. 2. Small bilateral pleural effusions with some bibasilar atelectasis. 3. Cardiomegaly with a small pericardial effusion. Electronically Signed: Franco Green MD at 13:59 EDT Tel , Service support , Charges/Coding Visit Charges Inpatient E&M: 45455 Init Hosp L3
--- NOTE | 2021-04-21 13:40 | CASEMGMT ---
Addendum entered by Morenita May 04/21/21 15:33: Pt also states ex- cleans his home and will be moving back in with him soon and can help with whatever he may need. Rebeca GILES CM Original Note: CHAN CONTRERAS assessment: Face to Face with patient for initial transition planning/care coordination assessment. CHAN CONTRERAS introduced self and role at [facility], pt voices understanding and consents to assessment. Pt is lying in bed in no distress on 3L nc(his home dose). Pt is A/Ox4 and answers all questions appropriately. Care providers, pharmacy, and demographics verified. Presentation: Pt c/o increased SOB for 2 months, hx COPD, on 3L at home, also c/o weakness Admitting dx: HF exac PCP: Yony Specialists: Ervin cardio; Satnam pulm; Kari nephdiaz Preferred Pharmacy: [facility] Insurance: [facility] Prescription Benefit: [facility] Living Will/HPOA: Pt has LW/HPOA and is aware that they are on file at [facility]. Pt's son, Samy Avery, is HPOA. LNOK: Samy Avery, son/HPOA; Charmaine Avery, daughter Living Arrangements: Pt lives alone in 1 story home with 2 steps in and states no concerns at home. Pt is independent with ADL's. Transportation: Pt states drives self and states no transportation concerns. DME/HHC: Pt states has walk-in shower and 3L nc home oxygen thru [employer]. Pt states no need for any further DME. Pt states has had HHC and been to [facility] IP rehab in the past. Pt states no concerns with going home at time of discharge. Pt states is retired. Pt states does not smoke cigarettes or drink ETOH. Pt states no further concerns/needs. CM to follow for increased home oxygen need and any further discharge planning/needs. Advised pt to ask for CM if any further questions/concerns/needs arise, voices understanding. Pt Goal: Home Plan: Home Rebeca GILES CM
--- NOTE | 2021-04-21 13:40 | PN.HOSP_ITS ---
Documented by User: Tony DIAZ 04/21/21 13:54 Subjective Subjective Patient is a 70-year-old male comfortably resting in bed, alert and orient x3. Patient reports significant improvement in her shortness of breath from admission. Denies development of any new symptoms overnight. Does not appear in acute distress. Objective Data Objective Data Vital Signs: Vital Signs Temp Pulse Resp BP Pulse Ox 97.4 F L 68 20 H 100/46 L 99 04/21/21 08:48 04/21/21 10:55 04/21/21 08:48 04/21/21 10:55 04/21/21 08:48 Oxygen Flow Rate (L/min) 3 Oxygen Delivery Method Nasal Cannula Weight: 218 lb 0.595 oz Body Mass Index (BMI) 35.5 Intake & Output: Intake and Output for Last 24 Hours 04/19/21 04/20/21 04/21/21 23:59 23:59 23:59 Intake Total 220 / 330 477 / 477 Output Total 1600 / 1600 Balance 220 / 330 -1123 / -1123 Lab / Micro Data Result Diagrams: 04/20/21 11:06 04/21/21 06:00 Labs: Laboratory Results - last 24 hr 04/20/21 11:06: Magnesium 2.9 H 04/20/21 15:50: Troponin I High Sens 257 H* 04/20/21 17:46: Troponin I High Sens 273 H* 04/20/21 17:46: Potassium 5.9 H 04/21/21 06:00: Sodium 137, Potassium 4.4, Chloride 95 L, Carbon Dioxide 38.0 H, Anion Gap 4 L, BUN 107 H*, Creatinine 2.91 H, Estim Creat Clear Calc 21.45, Est GFR (MDRD) Af Amer 28 L, Est GFR (MDRD) Non-Af 23 L, BUN/Creatinine Ratio 36.8 H , Glucose 84, Calcium 9.5, Phosphorus 3.9, Magnesium 2.7 H, Triglycerides 112, Cholesterol 136, LDL Cholesterol 90, VLDL Cholesterol 22, HDL Cholesterol 24 L, TSH 0.73 Micro: Microbiology 04/20/21 11:30 Nasal Secretion SARS-CoV-2 Antigen (Rapid) - Final Radiography Diagnostic Testing: Radiology Impression Chest CT 04/20/21 12:20 IMPRESSION: 1. 3.5 cm right hilar mass in the medial right middle lobe worrisome for bronchogenic carcinoma with some postobstructive atelectasis. Correlation with bronchoscopy would be useful. 2. Small bilateral pleural effusions with some bibasilar atelectasis. 3. Cardiomegaly with a small pericardial effusion. Electronically Signed: Franco Green MD at 13:59 EDT Tel , Service support , Echocardiogram 04/21/21 05:55 Interpretation Summary The study was technically difficult. Contrast injection was performed. Severely dilated left ventricle. Severe segmental systolic dysfunction (see wall motion). The estimated ejection fraction is 15 %. The left atrium is severely enlarged. The right atrium is mildly enlarged. Mild papillary muscle dysfunction of the mitral valve. Moderate (2+) eccentric mitral valve insufficiency. Mild tricuspid valve insufficiency. Moderate focal aortic valve calcification. Trivial pulmonic valve insufficiency. Trivial pericardial effusion. There are no echocardiographic indications of cardiac tamponade. Right ventricular systolic pressure estimated to be 50 mmHg. Diastolic function is indeterminate. ICD or pacer leads identified within the right atrium ICD or pacer leads identified within the right ventricle. ____ Ordering Physician: Keagan Augustin Referring Physician: Tyrone Bhakta Performed By: Montse Dallas RDCS Physical Exam Const alert, oriented x3 and no apparent distress HEENT head/scalp atraumatic and moist oral mucous membranes Head and Scalp: normocephalic Eyes PERRL, EOMs intact bilaterally and conjunctivae normal Neck no lymphadenopathy, supple and no JVD Resp normal respiratory effort, no retractions and no use of accessory muscles Auscultation: rhonchi and diminished lung sounds Cardio regular rate, regular rhythm, no murmurs and no JVD Cardio Narrative: Diastolic BP is slightly hypotensive at 100/46. GI Inspection: abdominal distention Palpation: firm Extremity normal to inspection, full ROM and no clubbing, cyanosis or edema Skin no rashes or lesions noted, no wounds, skin turgor normal and no jaundice Neuro CN's II-XII intact bilaterally Psych affect normal Assessment & Plan Assessment/Plan (1) Hyperkalemia: (2) Acute exacerbation of CHF (congestive heart failure): (3) History of implantable cardioverter-defibrillator (ICD) placement: (4) Lung mass: (5) Dyspnea: (6) Elevated troponin: PLAN: Day 1 Discharge planning: Patient to be discharged home when medically ready 1) acute on chronic systolic CHF exacerbation Appears significantly improved from admission in regards to her shortness of breath. Currently satting 99% 3 L via nasal cannula. Home medication list includes beta-maximiliano and Lasix. Patient is not on JUANITA/ARB therapy due to CKD. No further recommendations per cardiology or nephrology consult, agree with continuing Lasix drip. Magnesium slightly elevated at 2.7. TSH within normal limits. Plan; remain admitted overnight, continue O2 per protocol, continue Lasix drip, potential discharge tomorrow if patient is stable. 2) elevated troponin High-sensitivity troponin elevated at 313. Patient does have a pacemaker and follows with Dr. Kumar. Cardiology consult suspect that this is a type II NSTEMI secondary to #1. No further recommendations per cardiology. 3) hyperkalemia Resolved, Kayexalate and calcium gluconate given on admission. Continue to trend BMP. 4) COPD Do not believe patient is in acute exacerbation and believe shortness of breath is related to #1. Continue budesonide, continue DuoNebs, continue Tiotropium. 5) atrial fibrillation Patient is on carvedilol and amiodarone for rate control. Patient is on Xarelto for anticoagulation. Continue carvedilol, amiodarone and Xarelto. 6) right hilar mass Chest CT demonstrated a 3.5 cm right hilar mass in the right middle lobe concerning for bronchogenic carcinoma. Patient does endorse smoking 1.5 packs/day for 30 years. Patient does not currently smoke. Pulmonary consult obtained. DVT prophylaxis - Xarelto Patient seen by Tony Rogers PA-C, under the supervision of Dr. Noriega. Documented by User: Dr. Adrianne Noriega MD 04/21/21 15:45 Objective Data Lab / Micro Data Result Diagrams: 04/20/21 11:06 04/21/21 06:00 Charges/Coding Addendum Addendum: Patient seen by Tony Rogers PA-C under my supervision Patient seen and examined. He feels his shortness of breath is improving. He denies any coughing or chest pain, palpitations, dizziness, nausea vomiting. Remains on Lasix drip. Review of sounds otherwise negative. O/E: Const alert, oriented x3 and no apparent distress HEENT head/scalp atraumatic and moist oral mucous membranes Head and Scalp: normocephalic Eyes PERRL, EOMs intact bilaterally and conjunctivae normal Neck no lymphadenopathy, supple and no JVD Resp diminished breath sounds bibasally, on 3L of oxygen by nasal canula Cardio regular rate, regular rhythm, no murmurs and no JV GI Inspection: abdominal distention Palpation: firm Extremity normal to inspection, full ROM and no clubbing, cyanosis or edema Skin no rashes or lesions noted, no wounds, skin turgor normal and no jaundice Neuro CN's II-XII intact bilaterally Psych affect normal Continue diuresing with Lasix drip. Plan is for medical management for non- STEMI. Titrate oxygen to maintain saturation above 90%. Monitor intake and output. Hyperkalemia has resolved. For his right hilar mass, fair pulmonology, patient should follow-up on outpatient basis for biopsy of the mass. Patient is currently on Xarelto for A. fib thromboprophylaxis. Continue carvedilol and amiodarone. Rest as per Tony Rogers PA-c's notes under my supervision. Visit Charges Inpatient E&M: 46101 Subs Hosp L2
--- NOTE | 2021-04-21 14:49 | NURSING ---
This RN reviewed all SN charting
[2021-04-21] MEDS: Rivaroxaban 15 MG Tablet PO (16:34)
--- NOTE | 2021-04-21 16:48 | CON.PCM.RE_ITS ---
Assessment & Plan Assessment/Plan (1) Acute exacerbation of CHF (congestive heart failure): (2) Hyperkalemia: (3) STEPHANIE (acute kidney injury): PLAN: Acute on chronic renal failure. Has chronic kidney disease stage IV with baseline creatinine around 2.2. Denies any obstructive symptoms. Echocardiogram shows low ejection fraction of 15%. Cardiology note reviewed. He was also noted to have a lung mass and was seen by pulmonology. No plans for biopsy for now. Subjectively feels better compared to yesterday. Continue Lasix drip and metolazone for now. Hyperkalemia. Potassium is better. HPI Consult Data Date of Consult: 04/21/21 HPI Narrative HPI Narrative: MOE CAMEJO, is a 70 M who presents To the hospital with complaints of shortness of breath. Nephrology consultation for acute renal failure. He is known to me from office. Has known history of CK D stage IV with baseline creatinine around 2.2. History of heart failure with reduced ejection fraction. Presented to the hospital with complaints of shortness of breath. CT chest consistent with fluid overload. Elevated troponins. Had hyper kalemia on admission. Better today. Overnight he was on Lasix drip along with metolazone. Feels better today compared to yesterday. Moderate amount of lower extremity edema. [facility] Medical History (Updated 04/21/21 @ 16:[address] 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 Atrial fibrillation Bilateral atelectasis BPH (benign prostatic hypertrophy) Chronic anticoagulation Chronic systolic (congestive) heart failure COPD (chronic obstructive pulmonary disease) Diverticulosis Former smoker, stopped smoking in distant past History of left heart catheterization (LHC) (~08/09/20) History of stent insertion of renal artery Hyperlipemia Hypertension Hypothyroidism Ischemic cardiomyopathy Left renal artery stenosis senior living (current) use of anticoagulants Pacemaker Peripheral arterial occlusive disease Pleural effusion Pulmonary hypertension Respiratory failure with hypoxia and hypercapnia Urine retention Warfarin-induced coagulopathy Home Medications albuterol sulfate 1 - 2 puff INHALATION Q4H PRN PRN 12/01/17 [History Last Taken 08/03/20] aspirin 81 mg PO DAILY@0800 12/01/17 [History Last Taken 08/07/20] budesonide-formoterol 2 puff INHALATION BID 12/01/17 [History Last Taken 12/01/17] levothyroxine 112 mcg PO DAILY 12/01/17 [History Last Taken 08/07/20] tamsulosin 0.4 mg PO DAILY 12/01/17 [History Last Taken 08/07/20] tiotropium bromide 2 puff INHALATION DAILY 12/01/17 [History Last Taken 08/07/20] ferrous sulfate 325 mg PO TIDCM #1 tab 12/04/17 [Rx Last Taken 08/07/20] calcitriol 0.25 mcg capsule 0.25 mcg PO MOWEFR cap 08/11/18 [History Last Taken Unknown] potassium chloride 10 mEq tablet,extended release(part/cryst) 10 meq PO DAILY tab 09/14/19 [History Last Taken 08/07/20] ezetimibe 10 mg tablet 10 mg PO QHS #90 tab 10/11/19 [Rx Last Taken Unknown] fenofibrate nanocrystallized 145 mg tablet 145 mg PO QHS #90 tab 10/11/19 [Rx Last Taken 08/06/20] rosuvastatin 40 mg tablet 40 mg PO QHS #90 tab 10/11/19 [Rx Last Taken 08/06/20] carvedilol 25 mg tablet 25 mg PO BID #180 tab 05/10/20 [Rx Last Taken 08/07/20] rivaroxaban 20 mg tablet 20 mg PO DAILY #30 tab 05/13/20 [Rx Last Taken 08/06/20] Handicap Placard #1 ea 08/29/20 [Rx Last Taken Unknown] furosemide 20 mg tablet 60 mg PO BID #180 tab 10/18/20 [Rx Last Taken Unknown] isosorbide dinitrate 5 mg tablet 5 mg PO TID #270 tab 10/28/20 [Rx Last Taken Unknown] spironolactone 25 mg tablet 25 mg PO DAILY #90 tab 12/24/20 [Rx Last Taken Unknown] amiodarone 200 mg PO BID 04/20/21 [History Last Taken Unknown] Allergy/AdvReac Type Severity Reaction Status Date / Time No Known Allergies Allergy Verified 04/20/21 10:51 Family History Father CAD (coronary artery disease) Mother CAD (coronary artery disease) Brother CAD (coronary artery disease) Hypertension Sister CAD (coronary artery disease) Hypertension Surgical History (Updated 04/21/21 @ 12:[address] Eros Kumar MD) AICD (automatic cardioverter/defibrillator) present History of implantable cardioverter-defibrillator (ICD) placement History of stent insertion of renal artery (03/14/08) Status post aortobifemoral bypass surgery (04/25/01) Stented coronary artery Social History Smoking Status: Former smoker pack-years: 45 Tobacco: How many years used: 30 alcohol intake: never caffeine: Yes Type: coffee ROS ROS Narrative reiew of systems negative except HPI Physical Exam Narrative Alert awake oriented x 3 no obvious distress no pallor no icterus no JVD s1s2 no murmurs lungs clear abdomen soft no organomegaly no edema no cyanosis Lab / Micro Data Result Diagrams: 04/20/21 11:06 04/21/21 06:00 Labs: Laboratory Results - last 24 hr 04/20/21 17:46: Troponin I High Sens 273 H* 04/20/21 17:46: Potassium 5.9 H 04/21/21 06:00: Sodium 137, Potassium 4.4, Chloride 95 L, Carbon Dioxide 38.0 H, Anion Gap 4 L, BUN 107 H*, Creatinine 2.91 H, Estim Creat Clear Calc 21.45, Est GFR (MDRD) Af Amer 28 L, Est GFR (MDRD) Non-Af 23 L, BUN/Creatinine Ratio 36.8 H , Glucose 84, Calcium 9.5, Phosphorus 3.9, Magnesium 2.7 H, Triglycerides 112, Cholesterol 136, LDL Cholesterol 90, VLDL Cholesterol 22, HDL Cholesterol 24 L, TSH 0.73 Radiology Impression Echocardiogram 04/21/21 05:55 Interpretation Summary The study was technically difficult. Contrast injection was performed. Severely dilated left ventricle. Severe segmental systolic dysfunction (see wall motion). The estimated ejection fraction is 15 %. The left atrium is severely enlarged. The right atrium is mildly enlarged. Mild papillary muscle dysfunction of the mitral valve. Moderate (2+) eccentric mitral valve insufficiency. Mild tricuspid valve insufficiency. Moderate focal aortic valve calcification. Trivial pulmonic valve insufficiency. Trivial pericardial effusion. There are no echocardiographic indications of cardiac tamponade. Right ventricular systolic pressure estimated to be 50 mmHg. Diastolic function is indeterminate. ICD or pacer leads identified within the right atrium ICD or pacer leads identified within the right ventricle. Ordering Physician: Keagan Augustin Referring Physician: Tyrone Bhakta Performed By: Montse Dallas RDCS
[2021-04-21] MEDS: Furosemide 500 MG in Empty Viaflex 50 mL 1 EACH CONT INF (19:52)
[2021-04-21] MEDS: Atorvastatin Calcium 80 MG Tablet PO (21:16)
[2021-04-21] MEDS: Ezetimibe 10 MG Tablet PO (21:16)
--- NOTE | 2021-04-21 23:53 | PCS.PANDOC ---
PANDEMIC DOCUMENTATION INITIATED: Date: 03/03/2021 Time: 190
[2021-04-22] VITALS (7 sets, daily range): BP systolic 101–117; BP diastolic 43–56; PULSE 67–80; RESP 16–20; TEMP 36.6–36.7; O2SAT 96–99
[2021-04-22] MEDS: Isosorbide DN 10 MG Tablet 5 MG PO (05:30)
[2021-04-22] MEDS: Levothyroxine 112 MCG Tablet PO (05:31)
[2021-04-22] MEDS: Budesonide Respules 0.5 MG/2 ML AMPUL.NEB. INHALATION (06:50)
[2021-04-22] MEDS: Ipratropium/Albuterol Sulfate 3 ML AMPUL.NEB INHALATION ×2 (06:50→13:27)
[2021-04-22 07:23] LABS: Absolute Lymphocyte Count 0.51 X10^3/uL (0.83-4.51); Absolute Neutrophil Count 4.6 X10^3/uL (2.0-7.7); Basophil# 0.01 X10^3/uL; Basophil% 0.2 % (0-1); Eosinophil# 0.03 X10^3/uL; Eosinophils% 0.5 % (0-5); Hematocrit 36.5 % (40-54); Hemoglobin 11.1 g/dL (13.0-16.5); Lymphocyte # 0.51 X10^3/ul (0.83-4.51); Lymphocyte % 8.8 % (19-41); Mean Corp Hgb Conc 30.4 g/dL (32-36); Mean Corpuscular Hgb 31.7 pg (27.0-32.0); Mean Corpuscular Volume 104.3 fL (80-94); Mean Platelet Vol. 10.8 fl (6.2-12.0); Monocyte# 0.62 X10^3/uL; Monocyte% 10.7 % (0-10); NRBC Flagged by Analyzer 0 % (0-5); Neutrophil # 4.56 X10^3/uL (2.7-7.7); Neutrophil % 79.1 % (47-70); POSITIVE DIFFERENTIAL YES; Platelet Count 136 K/mm3 (150-450); RBC Distribution Width CV 15.1 % (11.6-14.6); White Blood Count 5.8 K/mm3 (4.4-11.0)
[2021-04-22 07:24] LABS: Differential Indicated SCAN CRITERIA MET
[2021-04-22 08:06] LABS: Anion Gap 2 (5-15); BUN 109 mg/dL (7-18); BUN/Creat Ratio 37.7 RATIO (10-20); Calcium,Total 9.4 mg/dL (8.5-10.1); Chloride 94 mmol/L (98-107); Creatinine, Serum 2.89 mg/dL (0.70-1.30); EST Glomerular Filtration Rate 23 mL/min (>60); Est Glom Filt Rate - Afr Amer 28 mL/min (>60); Glucose 89 mg/dL (74-106); Potassium 4.1 mmol/L (3.5-5.1); Sodium Level 138 mmol/L (136-145)
--- NOTE | 2021-04-22 08:57 | PCM.PN.CARD ---
Subjective Subjective The patient states that his breathing and lower extremity edema have improved since being in the hospital and receiving IV diuretics. Objective Data Vital Signs: Vital Signs Temp Pulse Resp BP Pulse Ox 98.0 F 68 20 H 115/45 L 96 04/22/21 03:10 04/22/21 07:00 04/22/21 06:50 04/22/21 05:27 04/22/21 06:50 Oxygen Flow Rate (L/min) 3 Oxygen Delivery Method Nasal Cannula Weight: 218 lb 0.595 oz Body Mass Index (BMI) 35.5 Intake & Output: Intake and Output for Last 24 Hours 04/20/21 04/21/21 04/22/21 23:59 23:59 23:59 Intake Total 220 / 330 863.85 / 863.85 100 / 100 Output Total 2900 / 2900 350 / 350 Balance 220 / 330 -2036.15 / -2036.15 -250 / -250 Lab / Micro Data Result Diagrams: 04/22/21 06:49 04/22/21 06:49 Labs: Laboratory Results - last 24 hr 04/22/21 06:49: Sodium 138, Potassium 4.1, Chloride 94 L, Carbon Dioxide 42.0 H, Anion Gap 2 L, BUN 109 H*, Creatinine 2.89 H, Estim Creat Clear Calc 21.60, Est GFR (MDRD) Af Amer 28 L, Est GFR (MDRD) Non-Af 23 L, BUN/Creatinine Ratio 37.7 H, Glucose 89, Calcium 9.4 04/22/21 06:49: WBC 5.8, RBC 3.50 L, Hgb 11.1 L, Hct 36.5 L, MCV 104.3 H, MCH 31.7, MCHC 30.4 L, RDW Std Deviation 58.0 H, RDW Coeff of Bhavna 15.1 H, Plt Count 136 L, MPV 10.8, Immature Gran % (Auto) 0.700, Neut % (Auto) 79.1 H, Lymph % (Auto) 8.8 L, [place] % (Auto) 10.7 H, Eos % (Auto) 0.5, Baso % (Auto) 0.2, Absolute Neuts (auto) 4.6, Absolute Lymphs (auto) 0.51 L, Nucleated RBC % 0 Cardiology Labs/Tests 04/22/21 06:49: Sodium 138, Potassium 4.1, Chloride 94 L, Carbon Dioxide 42.0 H, Anion Gap 2 L, BUN 109 H*, Creatinine 2.89 H, Est GFR (MDRD) Af Amer 28 L, Est GFR (MDRD) Non-Af 23 L, BUN/Creatinine Ratio 37.7 H, Glucose 89, Calcium 9.4 04/22/21 06:49: WBC 5.8, RBC 3.50 L, Hgb 11.1 L, Hct 36.5 L, MCV 104.3 H, MCH 31.7, MCHC 30.4 L, Plt Count 136 L, MPV 10.8, Immature Gran % (Auto) 0.700, Neut % (Auto) 79.1 H, Lymph % (Auto) 8.8 L, Divide % (Auto) 10.7 H, Eos % (Auto) 0.5, Baso % (Auto) 0.2, Absolute Neuts (auto) 4.6, Nucleated RBC % 0 Rhythm: Electronic ventricular paced rhythm Radiography Diagnostic Testing: Radiology Impression Echocardiogram 04/21/21 05:55 Interpretation Summary The study was technically difficult. Contrast injection was performed. Severely dilated left ventricle. Severe segmental systolic dysfunction (see wall motion). The estimated ejection fraction is 15 %. The left atrium is severely enlarged. The right atrium is mildly enlarged. Mild papillary muscle dysfunction of the mitral valve. Moderate (2+) eccentric mitral valve insufficiency. Mild tricuspid valve insufficiency. Moderate focal aortic valve calcification. Trivial pulmonic valve insufficiency. Trivial pericardial effusion. There are no echocardiographic indications of cardiac tamponade. Right ventricular systolic pressure estimated to be 50 mmHg. Diastolic function is indeterminate. ICD or pacer leads identified within the right atrium ICD or pacer leads identified within the right ventricle. Ordering Physician: Keagan Augustin Referring Physician: Tyrone Bhakta Performed By: Montse Dallas RDCS Physical Exam Narrative Patient seen and examined at bedside in PCU Is lying comfortable in bed not in acute distress email administrator showed underlying atrial fibrillation with paced ventricular rhythm and his blood pressure has been stable Cardiovascular exam S1-S2 is irregular no murmur no pericardial rub Chest exam diminished air entry bilateral. Examination lower extremity bilateral lower extremity edema. Const alert, oriented x3 and no apparent distress Orientation / Consciousness: awake HEENT normocephalic, head/scalp atraumatic and hearing grossly normal bilaterally Eyes PERRL, EOMs intact bilaterally and conjunctivae normal Neck full ROM, supple and no JVD Resp Auscultation: diminished lung sounds bilateral (Improved compared to previous evaluation) lower Cardio regular rate, regular rhythm, S1 normal heart sound and S2 normal heart sound GI normal to inspection, nondistended, normoactive bowel sounds Extremity General Extremity: edema bilateral lower extremity (Bilateral lower extremities: Positive Justus wrap: Improved compared to previous evaluation) Details: moderate Psych mental status grossly normal Assessment & Plan Assessment/Plan (1) Elevated troponin: PLAN: The patient does have elevated troponins. He has been evaluated noninvasively and invasively earlier this year. At the present time the working diagnosis is that his elevated troponin is a type II non-ST segment elevation GA secondary to his acute on chronic systolic mediated CHF. (2) Atherosclerotic heart disease of [place] coronary artery without angina pectoris: QUALIFIERS: [place] vs. transplanted heart: [place] heart Qualified Code(s): I25.10 - Atherosclerotic heart disease of [place] coronary artery without angina pectoris PLAN: The patient has a history of underlying CAD. He has been evaluated earlier this year both noninvasively and invasively. At the moment he will continue medical management. (3) Stented coronary artery: PLAN: The patient's previous cardiac catheterization performed earlier this year as noted. At the moment he will continue medical therapy. (4) Acute exacerbation of CHF (congestive heart failure): PLAN: The patient will need to continue evaluation care for his ongoing acute on chronic systolic mediated CHF. He does appear to be symptomatically improved. An attempt will be made to alter his IV continuous infusion furosemide to oral diuretics and monitor his progress. (5) Chronic systolic (congestive) heart failure: PLAN: Again the patient has a history of chronic systolic mediated CHF. This is thought secondary to an underlying ischemic mediated cardiomyopathy. At the moment he appears to have acute on chronic related issues. He will continue medical management. (6) Ischemic cardiomyopathy: PLAN: He has undergone repeat evaluation with a transthoracic echocardiogram. The results are as noted. He remains with markedly diminished LV systolic function. He will continue medical management. (7) Atrial fibrillation: QUALIFIERS: Atrial fibrillation type: chronic Qualified Code(s): I48.2 - Chronic atrial fibrillation PLAN: He has a history of underlying atrial dysrhythmia/atrial fibrillation. His antiarrhythmic history has been reviewed. His amiodarone will be changed to daily. He will be followed over time in the hospital as well as out of the hospital via his ICD interrogation for concerns of any cardiac dysrhythmias. (8) History of implantable cardioverter-defibrillator (ICD) placement: PLAN: His most recent ICD evaluation is as noted. He will continue medical management and follow-up. (9) Status post aortobifemoral bypass surgery: PLAN: He does have a history of peripheral arterial occlusive disease. Certainly this needs to be taken into consideration with respect to any future invasive evaluation/care. (10) History of stent insertion of renal artery: PLAN: He has a history of PCI to the renal artery system. He will continue medical therapy and follow-up. (11) Hyperlipemia: QUALIFIERS: Hyperlipidemia type: pure hypercholesterolemia Qualified Code(s): E78.00 - Pure hypercholesterolemia, unspecified; E78.0 - Pure hypercholesterolemia PLAN: He will continue risk factor modification medical management as deemed appropriate. (12) Hypertension: QUALIFIERS: Hypertension type: essential hypertension Qualified Code(s): I10 - Essential (primary) hypertension PLAN: His blood pressure will need to be followed and his medications adjusted during his hospital course. (13) Lung mass: PLAN: He does have a history of underlying pulmonary lung mass. He has been evaluated by pulmonology. They have recommended either bronchoscopy evaluation/biopsy or CT-guided evaluation/biopsy once he is stable and can be without his anticoagulant therapy for period of time. It appears they are planning to coordinate this as an outpatient. Addt'l Comments This note was generated using a voice recognition system and there may be incorrect words, spelling or punctuation that were not noted when reviewing the office note prior to saving.
[2021-04-22] MEDS: Carvedilol 12.5 MG Tablet PO (09:10)
[2021-04-22] MEDS: metOLazone 5 MG Tablet PO (09:10)
[2021-04-22] MEDS: Aspirin E.C. 81 MG Tablet PO (09:10)
[2021-04-22] MEDS: Ferrous Sulfate 325 MG Tablet PO (09:10)
[2021-04-22] MEDS: Tamsulosin HCl 0.4 MG Capsule PO (09:10)
[2021-04-22] MEDS: Amiodarone 200 MG Tablet PO (09:10)
[2021-04-22] MEDS: Furosemide 80 MG Tablet PO (09:13)
--- NOTE | 2021-04-22 10:04 | CASEMGMT ---
Addendum entered by Morenita May 04/22/21 11:08: This RN CM to room and pt states no concerns with going home at time of discharge. Pt voices no further questions/concerns/needs. Rebeca GILES CM Original Note: Pt is currently on his home order for oxygen 3L nc. Pt is also already on Xarelto at home. CM to follow for any further discharge planning/needs. Rebeca GILES CM
--- NOTE | 2021-04-22 10:47 | PCM.DC ---
Discharge Instructions Diet Discharge Diet: No restrictions Activity Discharge Activity: Return to Normal Activity Weight Bearing Status: Weight bearing as tolerated Dressing / Incision Call your doctor if you observe: Fever of 101 or Higher, Numbness or Tingling, Shortness of breath, Dizziness, Chest pain, Increased palpitations (irregular heartbeat) and Calf discomfort Follow Up Care Please Follow Up With: Primary care provider When: Within the next two weeks. Test Results: Test results from this visit will be discussed in further detail at your follow-up appointment, if applicable. Discharge Plan Admission Admit Date/Time: 04/20/21 14:52 Primary Reason for Your Visit: Shortness of breath Attending Provider: Adrianne Noriega Primary Care Provider: Tyrone Bhakta Consulting Providers: Herrera Hay ; Fer Fay ; Vita Gilmore Discharge Orders/Prescriptions Prescriptions: New amiodarone 200 mg Tablet 200 mg PO DAILY Qty: 30 RF: 0 furosemide 80 mg Tablet 80 mg PO BIDLX Qty: 60 RF: 0 Continued calcitriol 0.25 mcg capsule 0.25 mcg PO MOWEFR RF: 0 (DME) Handicap Placard See Rx Instructions .Route .MEDSUPPLY Qty: 1 RF: 0 aspirin 81 MG tablet 81 mg PO DAILY@0800 RF: 0 tamsulosin 0.4 MG capsule 0.4 mg PO DAILY RF: 0 albuterol sulfate 1 PUFF inhaler 1 - 2 puff INHALATION Q4H PRN PRN (Reason: Bronchodialation) RF: 0 levothyroxine 112 MCG tablet 112 mcg PO DAILY RF: 0 budesonide-formoterol 1 INHALER inhaler 2 puff INHALATION BID RF: 0 tiotropium bromide 4 GM mist 2 puff INHALATION DAILY RF: 0 ferrous sulfate 325 MG tablet 325 mg PO TIDCM Qty: 1 RF: 0 potassium chloride 10 mEq tablet,ER particles/crystals 10 meq PO DAILY RF: 0 ezetimibe 10 mg tablet 10 mg PO QHS Qty: 90 RF: 3 fenofibrate nanocrystallized 145 mg tablet 145 mg PO QHS Qty: 90 RF: 3 rosuvastatin 40 mg tablet 40 mg PO QHS Qty: 90 RF: 3 carvedilol 25 mg tablet 25 mg PO BID Qty: 180 RF: 4 Xarelto 20 mg tablet 20 mg PO DAILY Qty: 30 RF: 11 isosorbide dinitrate 5 mg tablet 5 mg PO TID Qty: 270 RF: 3 spironolactone 25 mg tablet 25 mg PO DAILY Qty: 90 RF: 3 Discontinued amiodarone 200 mg tablet 200 mg PO BID RF: 0 furosemide [Lasix] 20 mg tablet 60 mg PO BID Qty: 180 RF: 11 Referrals / Follow Up: Herrera Hay DO [STAFF PHYSICIAN] - Within 2 Weeks (Follow up with Dr. Hay for appropriate work up of lung mass. ) Maggie Pierce MD [STAFF PHYSICIAN] - Within 2 Weeks Eros Kumar MD [STAFF PHYSICIAN] - Within 2 Weeks Tyrone Bhakta [Primary Care Provider] - Within 2 Weeks Disposition Disposition (needs filled in before D/C Order can be placed): Home, Self Care
--- NOTE | 2021-04-22 11:09 | PHA.DC.MR ---
Pharmacy Service has performed discharge medication reconciliation for this patient. The patient's discharge medication list was reviewed for discrepancies and discrepancies were resolved. Home Medications albuterol sulfate 1 - 2 puff INHALATION Q4H PRN PRN 12/01/17 aspirin 81 mg PO DAILY@0800 12/01/17 budesonide-formoterol 2 puff INHALATION BID 12/01/17 levothyroxine 112 mcg PO DAILY 12/01/17 tamsulosin 0.4 mg PO DAILY 12/01/17 tiotropium bromide 2 puff INHALATION DAILY 12/01/17 ferrous sulfate 325 mg PO TIDCM #1 tab 12/04/17 calcitriol 0.25 mcg capsule 0.25 mcg PO MOWEFR cap 08/11/18 potassium chloride 10 mEq tablet,extended release(part/cryst) 10 meq PO DAILY tab 09/14/19 ezetimibe 10 mg tablet 10 mg PO QHS #90 tab 10/11/19 fenofibrate nanocrystallized 145 mg tablet 145 mg PO QHS #90 tab 10/11/19 rosuvastatin 40 mg tablet 40 mg PO QHS #90 tab 10/11/19 carvedilol 25 mg tablet 25 mg PO BID #180 tab 05/10/20 rivaroxaban 20 mg tablet 20 mg PO DAILY #30 tab 05/13/20 Handicap Placard #1 ea 08/29/20 isosorbide dinitrate 5 mg tablet 5 mg PO TID #270 tab 10/28/20 spironolactone 25 mg tablet 25 mg PO DAILY #90 tab 12/24/20 amiodarone 200 mg PO DAILY #30 tab 04/22/21 furosemide 80 mg PO BIDLX #60 tab 04/22/21
--- NOTE | 2021-04-22 11:20 | PCM.PN.INT ---
Assessment & Plan Assessment/Plan (1) Lung mass: PLAN: RECOMMENDATIONS: 1. Continue further volume optimization per hospitalist and cardiology. 2. Wean supplemental oxygen as tolerated to maintain saturations at or above 90%. 3. Continue scheduled bronchodilator therapy. 4. Recommend outpatient pulmonary follow-up within 2 weeks of discharge. We will help coordinate the biopsy of his lung mass and the withholding of his systemic anticoagulant. Will sign off at this time. Please call with any additional questions. IMPRESSIONS: 1. Acute decompensated heart failure Will defer medical management to hospitalist and cardiology. The patient is currently undergoing volume optimization with IV diuretic therapy. He does appear to be maintaining appropriate oxygen saturations on his baseline 3 L/min. Continue to encourage incentive spirometer use and mobilize patient as tolerated. 2. Severe obstructive lung disease The patient was recently noted to have a partially reversible severe mixed ventilatory defect on pulmonary function studies in February 2021. He would benefit from further outpatient pulmonary optimization. In the interim, it would be reasonable to continue scheduled bronchodilator therapy as ordered. 3. Lung mass CT chest revealed findings concerning for a large right hilar lung mass. This is certainly worrisome for underlying malignancy. However, the patient is being maintained on Xarelto on an outpatient basis, which has been continued while admitted to the hospital. This would preclude our ability to obtain a CT-guided lung biopsy for at least 72 hours. At this time, I would recommend that the patient follow-up in the pulmonary medicine clinic within 2 weeks of his discharge. At that time, we will coordinate the plan for a biopsy. He would be a candidate for either percutaneous or bronchoscopic approach, which ever can be done at the earliest time slot. The patient is agreeable to outpatient follow-up and coordination. 4. History of tobacco dependency in remission/hypertension/hyperlipidemia/atrial fibrillation Complicates care, management, recovery and prognosis. Continue home medications as indicated. Please ensure that the patient has a scheduled follow-up office visit in the pulmonary medicine clinic within 2 weeks of discharge. This note was generated with [employer] dictation software. It may contain incorrect words, spelling, and punctuation that were not noted in checking the note before signing. Subjective Subjective The patient was seen and examined at the bedside this morning. Events from the last 24 hours have been reviewed. The patient is currently afebrile, hemodynamically stable and maintaining appropriate oxygen saturations on 2 L/min via nasal cannula. The patient is currently documented to be overall net -2 L for the hospital admission. The patient remains on scheduled aerosol treatments and budesonide twice daily. Objective Data Objective Data The patient's most recent lab work, culture data and imaging studies have all been personally reviewed. Surface echocardiogram revealed a severely dilated LV with severe segmental systolic dysfunction and an ejection fraction of 15%. Rapid coronavirus antigen testing was negative. Vital Signs: Vital Signs Temp Pulse Resp BP Pulse Ox 97.9 F 74 16 101/43 L 98 04/22/21 09:05 04/22/21 09:05 04/22/21 09:05 04/22/21 09:05 04/22/21 09:05 Oxygen Flow Rate (L/min) 2 Oxygen Delivery Method Nasal Cannula Weight: 98.9 kg Body Mass Index (BMI) 35.5 Intake & Output: Intake and Output for Last 24 Hours 04/20/21 04/21/21 04/22/21 23:59 23:59 23:59 Intake Total 220 / 330 863.85 / 863.85 115.2 / 115.2 Output Total 2900 / 2900 350 / 350 Balance 220 / 330 -2036.15 / -2036.15 -234.8 / -234.8 Lab / Micro Data Attestation: I reviewed the patient's lab results. Result Diagrams: 04/22/21 06:49 04/22/21 06:49 Labs: Laboratory Results - last 24 hr 04/22/21 06:49: Sodium 138, Potassium 4.1, Chloride 94 L, Carbon Dioxide 42.0 H, Anion Gap 2 L, BUN 109 H*, Creatinine 2.89 H, Estim Creat Clear Calc 21.60, Est GFR (MDRD) Af Amer 28 L, Est GFR (MDRD) Non-Af 23 L, BUN/Creatinine Ratio 37.7 H, Glucose 89, Calcium 9.4 04/22/21 06:49: WBC 5.8, RBC 3.50 L, Hgb 11.1 L, Hct 36.5 L, MCV 104.3 H, MCH 31.7, MCHC 30.4 L, RDW Std Deviation 58.0 H, RDW Coeff of Bhavna 15.1 H, Plt Count 136 L, MPV 10.8, Immature Gran % (Auto) 0.700, Neut % (Auto) 79.1 H, Lymph % (Auto) 8.8 L, [place] % (Auto) 10.7 H, Eos % (Auto) 0.5, Baso % (Auto) 0.2, Absolute Neuts (auto) 4.6, Absolute Lymphs (auto) 0.51 L, Nucleated RBC % 0 Micro: Microbiology 04/20/21 11:30 Nasal Secretion SARS-CoV-2 Antigen (Rapid) - Final Radiography Diagnostic Testing: Radiology Impression Echocardiogram 04/21/21 05:55 Interpretation Summary The study was technically difficult. Contrast injection was performed. Severely dilated left ventricle. Severe segmental systolic dysfunction (see wall motion). The estimated ejection fraction is 15 %. The left atrium is severely enlarged. The right atrium is mildly enlarged. Mild papillary muscle dysfunction of the mitral valve. Moderate (2+) eccentric mitral valve insufficiency. Mild tricuspid valve insufficiency. Moderate focal aortic valve calcification. Trivial pulmonic valve insufficiency. Trivial pericardial effusion. There are no echocardiographic indications of cardiac tamponade. Right ventricular systolic pressure estimated to be 50 mmHg. Diastolic function is indeterminate. ICD or pacer leads identified within the right atrium ICD or pacer leads identified within the right ventricle. Ordering Physician: Keagan Augustin Referring Physician: Tyrone Bhakta Performed By: Montse Dallas RDCS Physical Exam Const alert and no apparent distress General Appearance: cooperative Nutritional Appearance: obese HEENT normocephalic and head/scalp atraumatic Eyes PERRL, EOMs intact bilaterally and conjunctivae normal Neck supple General: trachea midline Chest inspection of chest normal Resp Effort and Inspection: able to speak in complete sentences Auscultation: diminished lung sounds; Negative for rales, rhonchi or wheezes Cardio regular rate and regular rhythm GI normal to inspection, nondistended, normoactive bowel sounds Extremity no clubbing, cyanosis or edema Skin no rashes or lesions noted Neuro moves all extremities and no focal motor deficits Psych Mood & Affect: flat affect Charges/Coding Visit Charges Inpatient E&M: 62227 Subs Hosp L2
--- NOTE | 2021-04-22 12:10 | PN.RENAL_ITS ---
Subjective Subjective No new complaints. Breathing is better. Able to walk around. Remains on nasal cannula. At home he is on 3 L at baseline. Cardiology note reviewed. Schedule for possible biopsy of the lung mass after anticoagulant wears off. Objective Data Objective Data Vital Signs: Vital Signs Temp Pulse Resp BP Pulse Ox 97.9 F 74 16 101/43 L 98 04/22/21 09:05 04/22/21 09:05 04/22/21 09:05 04/22/21 09:05 04/22/21 09:05 Oxygen Flow Rate (L/min) 2 Oxygen Delivery Method Nasal Cannula Weight: 98.9 kg Body Mass Index (BMI) 35.5 Intake & Output: Intake and Output for Last 24 Hours 04/20/21 04/21/21 04/22/21 23:59 23:59 23:59 Intake Total 220 / 330 863.85 / 863.85 115.2 / 115.2 Output Total 2900 / 2900 350 / 350 Balance 220 / 330 -2036.15 / -2036.15 -234.8 / -234.8 Lab / Micro Data Result Diagrams: 04/22/21 06:49 04/22/21 06:49 Labs: Laboratory Results - last 24 hr 04/22/21 06:49: Sodium 138, Potassium 4.1, Chloride 94 L, Carbon Dioxide 42.0 H, Anion Gap 2 L, BUN 109 H*, Creatinine 2.89 H, Estim Creat Clear Calc 21.60, Est GFR (MDRD) Af Amer 28 L, Est GFR (MDRD) Non-Af 23 L, BUN/Creatinine Ratio 37.7 H , Glucose 89, Calcium 9.4 04/22/21 06:49: WBC 5.8, RBC 3.50 L, Hgb 11.1 L, Hct 36.5 L, MCV 104.3 H, MCH 31.7, MCHC 30.4 L, RDW Std Deviation 58.0 H, RDW Coeff of Bhavna 15.1 H, Plt Count 136 L, MPV 10.8, Immature Gran % (Auto) 0.700, Neut % (Auto) 79.1 H, Lymph % (Auto) 8.8 L, [place] % (Auto) 10.7 H, Eos % (Auto) 0.5, Baso % (Auto) 0.2, Absolute Neuts (auto) 4.6, Absolute Lymphs (auto) 0.51 L, Nucleated RBC % 0 Micro: Microbiology 04/20/21 11:30 Nasal Secretion SARS-CoV-2 Antigen (Rapid) - Final Radiography Diagnostic Testing: Radiology Impression Echocardiogram 04/21/21 05:55 Interpretation Summary The study was technically difficult. Contrast injection was performed. Severely dilated left ventricle. Severe segmental systolic dysfunction (see wall motion). The estimated ejection fraction is 15 %. The left atrium is severely enlarged. The right atrium is mildly enlarged. Mild papillary muscle dysfunction of the mitral valve. Moderate (2+) eccentric mitral valve insufficiency. Mild tricuspid valve insufficiency. Moderate focal aortic valve calcification. Trivial pulmonic valve insufficiency. Trivial pericardial effusion. There are no echocardiographic indications of cardiac tamponade. Right ventricular systolic pressure estimated to be 50 mmHg. Diastolic function is indeterminate. ICD or pacer leads identified within the right atrium ICD or pacer leads identified within the right ventricle. Ordering Physician: Keagan Augustin Referring Physician: Tyrone Bhakta Performed By: Montse Dallas RDCS Physical Exam Narrative Alert awake oriented x 3 no obvious distress no pallor no icterus no JVD s1s2 no murmurs lungs clear abdomen soft no organomegaly no edema no cyanosis Assessment & Plan Assessment/Plan (1) Acute exacerbation of CHF (congestive heart failure): (2) Hyperkalemia: (3) STEPHANIE (acute kidney injury): PLAN: Acute on chronic renal failure. Has chronic kidney disease stage IV with baseline creatinine around 2.2. Denies any obstructive symptoms. Echocardiogram shows low ejection fraction of 15%. Cardiology note reviewed. He was also noted to have a lung mass and was seen by pulmonology. biopsy later on. Subjectively feels better compared to yesterday. Likely alkalotic due to diuresis with Lasix and metolazone. Currently on oral Lasix. Hold metolazone.
--- NOTE | 2021-04-22 13:24 | DS.PCM_ITS ---
Documented by User: Tony DIAZ 04/22/21 13:33 Providers Date of Admission: 04/20/21 Primary Care Physician: Tyrone Bhakta Consultations 04/20/21 15:37 Consult: Personnel Research Psychologist / Pulmonary Medicine Routine Consulting Provider: Herrera Hay Reason for Consult: MASS in Right middle lobe, H/o COPD EMERGENT Consult: No MD Notified: Yes Date Notified: 04/20/21 Time Notified: 15:11 Method of Notification: Text 04/20/21 16:34 Consult: Nephrology Routine Consulting Provider: Vita Gilmore Reason for Consult: STEPHANIE on CKD stage 3, Hyperkalemia EMERGENT Consult: No MD Notified: Yes Date Notified: 04/20/21 Time Notified: 16:36 Method of Notification: Text 04/20/21 16:36 Consult: Cardiology Routine Consulting Provider: Fer Fay Reason for Consult: Elevated troponins EMERGENT Consult: No MD Notified: Yes Date Notified: 04/20/21 Time Notified: 16:36 Method of Notification: Verbal Reason For Visit: HEART FAILURE EXA Diagnosis Discharge Diagnosis (1) Acute exacerbation of CHF (congestive heart failure): Status: Chronic Code(s): I50.9 - Heart failure, unspecified (2) Hyperkalemia: Status: Acute Code(s): E87.5 - Hyperkalemia (3) STEPHANIE (acute kidney injury): Status: Acute Code(s): N17.9 - Acute kidney failure, unspecified Medications at Discharge Home Medications albuterol sulfate 1 - 2 puff INHALATION Q4H PRN PRN 12/01/17 aspirin 81 mg PO DAILY@0800 12/01/17 budesonide-formoterol 2 puff INHALATION BID 12/01/17 levothyroxine 112 mcg PO DAILY 12/01/17 tamsulosin 0.4 mg PO DAILY 12/01/17 tiotropium bromide 2 puff INHALATION DAILY 12/01/17 ferrous sulfate 325 mg PO TIDCM #1 tab 12/04/17 calcitriol 0.25 mcg capsule 0.25 mcg PO MOWEFR cap 08/11/18 potassium chloride 10 mEq tablet,extended release(part/cryst) 10 meq PO DAILY tab 09/14/19 ezetimibe 10 mg tablet 10 mg PO QHS #90 tab 10/11/19 fenofibrate nanocrystallized 145 mg tablet 145 mg PO QHS #90 tab 10/11/19 rosuvastatin 40 mg tablet 40 mg PO QHS #90 tab 10/11/19 carvedilol 25 mg tablet 25 mg PO BID #180 tab 05/10/20 rivaroxaban 20 mg tablet 20 mg PO DAILY #30 tab 05/13/20 Handicap Placard #1 ea 08/29/20 isosorbide dinitrate 5 mg tablet 5 mg PO TID #270 tab 10/28/20 spironolactone 25 mg tablet 25 mg PO DAILY #90 tab 12/24/20 amiodarone 200 mg PO DAILY #30 tab 04/22/21 furosemide 80 mg PO BIDLX #60 tab 04/22/21 Hospital Course Summary of Care Provided Minutes Spent on Discharge: 35 Hospital Course: Discharge planning: Patient to be discharged home when medically ready 1) acute on chronic systolic CHF exacerbation Appears significantly improved from admission in regards to her shortness of breath. Currently satting 99% 3 L via nasal cannula. Home medication list includes beta-maximiliano and Lasix. Patient is not on JUANITA/ARB therapy due to CKD. No further recommendations per cardiology or nephrology consult. Patient is to follow-up with nephrology, cardiology and primary care provider within the next 2 weeks. Lasix increased to 80 mg p.o. twice daily, amiodarone decreased to 200 mg p.o. daily. Echocardiogram obtained on demonstrated severely dilated left ventricle, an estimated EF of 15%, moderate mitral valve insufficiency, moderate focal aortic valve calcification and an RVSP of 50 mmHg with indeterminate diastolic dysfunction. 2) elevated troponin High-sensitivity troponin elevated at 313. Patient does have a pacemaker and follows with Dr. Kumar. Cardiology consult suspect that this is a type II NSTEMI secondary to #1. No further recommendations per cardiology. 3) hyperkalemia Resolved, Kayexalate and calcium gluconate given on admission. 4) COPD Do not believe patient is in acute exacerbation and believe shortness of breath is related to #1. Continue budesonide, continue DuoNebs, continue Tiotropium. 5) atrial fibrillation Patient is on carvedilol and amiodarone for rate control. Patient is on Xarelto for anticoagulation. Continue carvedilol, amiodarone adjusted as above. 6) right hilar mass Chest CT demonstrated a 3.5 cm right hilar mass in the right middle lobe concerning for bronchogenic carcinoma. Patient does endorse smoking 1.5 packs/day for 30 years. Patient does not currently smoke. Patient to follow-up with pulmonology within the next 2 weeks. Patient seen by Tony Rogers PA-C, under the supervision of Dr. Noriega. Physical Exam Narrative Patient is a 70-year-old male comfortably resting in bed, alert and orient x3. Denies development of any new symptoms overnight. Patient reports resolution of shortness of breath from admission. Denies chest pain, shortness of breath, palpitations, hemoptysis, sputum production, fever, chills, N/V/D. Const alert, oriented x3 and no apparent distress HEENT normocephalic, head/scalp atraumatic and hearing grossly normal bilaterally Eyes PERRL, EOMs intact bilaterally and conjunctivae normal Neck no lymphadenopathy, supple and no JVD Resp normal respiratory effort, no retractions, no use of accessory muscles and clear to auscultation bilaterally Cardio regular rate, regular rhythm, no murmurs and no JVD GI normal to inspection, nondistended, normoactive bowel sounds, soft to palpation and non-tender Extremity normal to inspection, full ROM and no clubbing, cyanosis or edema Skin no rashes or lesions noted, no wounds and skin turgor normal Neuro CN's II-XII intact bilaterally Psych affect normal Mood & Affect: depressed and anxious Weight / BMI Weight Weight: 218 lb 0.595 oz Body Mass Index (BMI) 35.5 ABG / Lab / Microbiology Data Result Diagrams: 04/22/21 06:49 04/22/21 06:49 Laboratory: Laboratory Results - last 24 hr 04/22/21 06:49: Sodium 138, Potassium 4.1, Chloride 94 L, Carbon Dioxide 42.0 H, Anion Gap 2 L, BUN 109 H*, Creatinine 2.89 H, Estim Creat Clear Calc 21.60, Est GFR (MDRD) Af Amer 28 L, Est GFR (MDRD) Non-Af 23 L, BUN/Creatinine Ratio 37.7 H , Glucose 89, Calcium 9.4 04/22/21 06:49: WBC 5.8, RBC 3.50 L, Hgb 11.1 L, Hct 36.5 L, MCV 104.3 H, MCH 31.7, MCHC 30.4 L, RDW Std Deviation 58.0 H, RDW Coeff of Bhavna 15.1 H, Plt Count 136 L, MPV 10.8, Immature Gran % (Auto) 0.700, Neut % (Auto) 79.1 H, Lymph % (Auto) 8.8 L, [place] % (Auto) 10.7 H, Eos % (Auto) 0.5, Baso % (Auto) 0.2, Absolute Neuts (auto) 4.6, Absolute Lymphs (auto) 0.51 L, Nucleated RBC % 0 Microbiology: Microbiology 04/20/21 11:30 Nasal Secretion SARS-CoV-2 Antigen (Rapid) - Final D/C Instructions Discharge Diet: No restrictions Weight Bearing Status: Weight bearing as tolerated Call your doctor if you observe: Fever of 101 or Higher, Numbness or Tingling, Shortness of breath, Dizziness, Chest pain, Increased palpitations (irregular heartbeat) and Calf discomfort Please Follow Up With: Primary care provider When: Within the next two weeks. Meaningful Use Info Meaningful Use Diagnoses (Choose all that apply): CHF CHF JUANITA/ARB ordered at discharge?: No Reason JUANITA/ARB not ordered?: Worsening renal disease Documented LVEF (%): 15 Discharge Plan Admission Admit Date/Time: 04/20/21 14:52 Primary Reason for Your Visit: Shortness of breath Attending Provider: Adrianne Noriega Primary Care Provider: Tyrone Bhakta Consulting Providers: Herrera Hay ; Fer Fay ; Vita Gilmore Discharge Orders/Prescriptions Prescriptions: New amiodarone 200 mg Tablet 200 mg PO DAILY Qty: 30 RF: 0 furosemide 80 mg Tablet 80 mg PO BIDLX Qty: 60 RF: 0 Continued calcitriol 0.25 mcg capsule 0.25 mcg PO MOWEFR RF: 0 (DME) Handicap Placard See Rx Instructions .Route .MEDSUPPLY Qty: 1 RF: 0 aspirin 81 MG tablet 81 mg PO DAILY@0800 RF: 0 tamsulosin 0.4 MG capsule 0.4 mg PO DAILY RF: 0 albuterol sulfate 1 PUFF inhaler 1 - 2 puff INHALATION Q4H PRN PRN (Reason: Bronchodialation) RF: 0 levothyroxine 112 MCG tablet 112 mcg PO DAILY RF: 0 budesonide-formoterol 1 INHALER inhaler 2 puff INHALATION BID RF: 0 tiotropium bromide 4 GM mist 2 puff INHALATION DAILY RF: 0 ferrous sulfate 325 MG tablet 325 mg PO TIDCM Qty: 1 RF: 0 potassium chloride 10 mEq tablet,ER particles/crystals 10 meq PO DAILY RF: 0 ezetimibe 10 mg tablet 10 mg PO QHS Qty: 90 RF: 3 fenofibrate nanocrystallized 145 mg tablet 145 mg PO QHS Qty: 90 RF: 3 rosuvastatin 40 mg tablet 40 mg PO QHS Qty: 90 RF: 3 carvedilol 25 mg tablet 25 mg PO BID Qty: 180 RF: 4 Xarelto 20 mg tablet 20 mg PO DAILY Qty: 30 RF: 11 isosorbide dinitrate 5 mg tablet 5 mg PO TID Qty: 270 RF: 3 spironolactone 25 mg tablet 25 mg PO DAILY Qty: 90 RF: 3 Discontinued amiodarone 200 mg tablet 200 mg PO BID RF: 0 furosemide [Lasix] 20 mg tablet 60 mg PO BID Qty: 180 RF: 11 Referrals / Follow Up: Herrera Hay DO [STAFF PHYSICIAN] - Within 2 Weeks (Please call to setup an appointment. ) Maggie Pierce MD [STAFF PHYSICIAN] - Within 2 Weeks (Please call to setup an appointment. ) Eros Kumar MD [STAFF PHYSICIAN] - 05/07/21 1:00 pm Tyrone Bhakta [Primary Care Provider] - Within 2 Weeks Disposition Disposition (needs filled in before D/C Order can be placed): Home, Self Care Documented by User: Dr. Adrianne Noriega MD 04/22/21 16:39 Providers Date of Admission: 04/20/21 Reason For Visit: HEART FAILURE EXA Medications at Discharge Home Medications albuterol sulfate 1 - 2 puff INHALATION Q4H PRN PRN 12/01/17 aspirin 81 mg PO DAILY@0800 12/01/17 budesonide-formoterol 2 puff INHALATION BID 12/01/17 levothyroxine 112 mcg PO DAILY 12/01/17 tamsulosin 0.4 mg PO DAILY 12/01/17 tiotropium bromide 2 puff INHALATION DAILY 12/01/17 ferrous sulfate 325 mg PO TIDCM #1 tab 12/04/17 calcitriol 0.25 mcg capsule 0.25 mcg PO MOWEFR cap 08/11/18 potassium chloride 10 mEq tablet,extended release(part/cryst) 10 meq PO DAILY tab 09/14/19 ezetimibe 10 mg tablet 10 mg PO QHS #90 tab 10/11/19 fenofibrate nanocrystallized 145 mg tablet 145 mg PO QHS #90 tab 10/11/19 rosuvastatin 40 mg tablet 40 mg PO QHS #90 tab 10/11/19 carvedilol 25 mg tablet 25 mg PO BID #180 tab 05/10/20 rivaroxaban 20 mg tablet 20 mg PO DAILY #30 tab 05/13/20 Handicap Placard #1 ea 08/29/20 isosorbide dinitrate 5 mg tablet 5 mg PO TID #270 tab 10/28/20 spironolactone 25 mg tablet 25 mg PO DAILY #90 tab 12/24/20 amiodarone 200 mg PO DAILY #30 tab 04/22/21 furosemide 80 mg PO BIDLX #60 tab 04/22/21 ABG / Lab / Microbiology Data Result Diagrams: 04/22/21 06:49 04/22/21 06:49 Discharge Plan Admission Admit Date/Time: 04/20/21 14:52 Primary Reason for Your Visit: Shortness of breath Attending Provider: Adrianne Noriega Primary Care Provider: Tyrone Bhakta Consulting Providers: Herrera Hay ; Fer Fay ; Vita Gilmore Discharge Orders/Prescriptions Prescriptions: New amiodarone 200 mg Tablet 200 mg PO DAILY Qty: 30 RF: 0 furosemide 80 mg Tablet 80 mg PO BIDLX Qty: 60 RF: 0 Continued calcitriol 0.25 mcg capsule 0.25 mcg PO MOWEFR RF: 0 (DME) Handicap Placard See Rx Instructions .Route .MEDSUPPLY Qty: 1 RF: 0 aspirin 81 MG tablet 81 mg PO DAILY@0800 RF: 0 tamsulosin 0.4 MG capsule 0.4 mg PO DAILY RF: 0 albuterol sulfate 1 PUFF inhaler 1 - 2 puff INHALATION Q4H PRN PRN (Reason: Bronchodialation) RF: 0 levothyroxine 112 MCG tablet 112 mcg PO DAILY RF: 0 budesonide-formoterol 1 INHALER inhaler 2 puff INHALATION BID RF: 0 tiotropium bromide 4 GM mist 2 puff INHALATION DAILY RF: 0 ferrous sulfate 325 MG tablet 325 mg PO TIDCM Qty: 1 RF: 0 potassium chloride 10 mEq tablet,ER particles/crystals 10 meq PO DAILY RF: 0 ezetimibe 10 mg tablet 10 mg PO QHS Qty: 90 RF: 3 fenofibrate nanocrystallized 145 mg tablet 145 mg PO QHS Qty: 90 RF: 3 rosuvastatin 40 mg tablet 40 mg PO QHS Qty: 90 RF: 3 carvedilol 25 mg tablet 25 mg PO BID Qty: 180 RF: 4 Xarelto 20 mg tablet 20 mg PO DAILY Qty: 30 RF: 11 isosorbide dinitrate 5 mg tablet 5 mg PO TID Qty: 270 RF: 3 spironolactone 25 mg tablet 25 mg PO DAILY Qty: 90 RF: 3 Discontinued amiodarone 200 mg tablet 200 mg PO BID RF: 0 furosemide [Lasix] 20 mg tablet 60 mg PO BID Qty: 180 RF: 11 Referrals / Follow Up: Herrera Hay DO [STAFF PHYSICIAN] - Within 2 Weeks (Please call to setup an appointment. ) Maggie Pierce MD [STAFF PHYSICIAN] - Within 2 Weeks (Please call to setup an appointment. ) Eros Kumar MD [STAFF PHYSICIAN] - 05/07/21 1:00 pm Tyrone Bhakta [Primary Care Provider] - Within 2 Weeks Disposition Disposition (needs filled in before D/C Order can be placed): Home, Self Care Charges/Coding Addendum Addendum: Patient seen by Tony Rogers PA-C under my supervision Patient is a 70 y/o male with a PMH as outlined who was admitted via the ED on 04/20/2021 with a complaint of shortness of breath which had been worsening for 2 months prior to admission, and associated exertional dyspnea, LE swelling and a 5 pound weight gain. CXR showed a right lower lobe infiltrate vs mass, and CT chest done showed a 3.5cm right hilar mass in the right middle lobe concerning for bronchogenic carcinoma as well as small bilateral pleural effusions and c ardiomegaly as well as a small pericardial effusion. BNp was also elevated. He was admitted and managed for acute on chronic HFrEF. He was started on lasix drip. He also had elevated troponin at 313, and he was also hyperkalemic with potassium of 6.2. Nephrology was also consulted. 2D echo showed EF of 15% with severely dilated LV and severely enlarged LA, as well as RVSP of 50mmHg. Pulmonology was consulted o/a of right hilar mass, and he was counseled to follow up with pulmonology on outpatient basis for further workup. His shortness of breath improved, and he was weaned off lasix drip onto oral lasix. Cardiology determined his NONSTEMI was likely due to demand ischemia. He remained stable and was discharged home on 04/22/2021, and is to follow up with PCP and pulmonology in 1-2 weeks as well as cardiology in 2-4 weeks. Patient seen and examined prior to discharge. He had no complaints. Review of systems is otherwise negative. Labs and vitals reviewed. Home meds reviewed and reconciled. O/E: Const alert, oriented x3 and no apparent distress HEENT head/scalp atraumatic and moist oral mucous membranes Head and Scalp: normocephalic Eyes PERRL, EOMs intact bilaterally and conjunctivae normal Neck no lymphadenopathy, supple and no JVD Resp normal respiratory effort, no retractions and no use of accessory muscles Auscultation: rhonchi and diminished lung sounds Cardio regular rate, regular rhythm, no murmurs and no JVD GI Inspection: abdominal distention Palpation: firm Extremity normal to inspection, full ROM and no clubbing, cyanosis or edema Skin no rashes or lesions noted, no wounds, skin turgor normal and no jaundice Neuro CN's II-XII intact bilaterally Psych affect normal Plan is for discharge today. Rest as per Tony Rogers PA-C under my supervision. Visit Charges Inpatient E&M: 42616 Disch Hosp
--- NOTE | 2021-04-23 16:42 | CASEMGMT ---
YOLANDA DC F/u Call DC Date: 04.22.21 DC Diagnosis: Acute exacerbation of CHF (congestive heart failure), STEPHANIE DC Disposition: Home Lace/Strata: 04/20 Called patient listed number on demographics. Patient answered, this justowriter operator introduced self and role. Patient states he is doing pretty good. Confirmed picked up his DC medications. Denies any issues, questions, concerns with medications, ACI, or f/u. S. YOLANDA Proctor
== END 2021-04-22 14:13 | disposition home or self-care (01) | DRG 280 ==
LOC: ED 14:30 → PCU 15:16
PROVIDERS: Admitting Provider Internal Medicine; Emergency Provider Emergency Medicine; Visit Provider Student in an Organized Health Care Education/Training Program
DX: I13.0 Hypertensive heart and chronic kidney disease with heart failure and stage 1 through stage 4 chronic kidney disease, or unspecified chronic kidney disease (principal); I50.23 Acute on chronic systolic (congestive) heart failure; I21.A1 Myocardial infarction type 2; N17.9 Acute kidney failure, unspecified; I31.3 Pericardial effusion (noninflammatory); N18.4 Chronic kidney disease, stage 4 (severe); I48.20 Chronic atrial fibrillation, unspecified; I34.0 Nonrheumatic mitral (valve) insufficiency; R91.8 Other nonspecific abnormal finding of lung field; E03.9 Hypothyroidism, unspecified; E78.5 Hyperlipidemia, unspecified; E87.5 Hyperkalemia; I25.10 Atherosclerotic heart disease of native coronary artery without angina pectoris; I25.5 Ischemic cardiomyopathy; E78.00 Pure hypercholesterolemia, unspecified; I27.20 Pulmonary hypertension, unspecified; N40.0 Benign prostatic hyperplasia without lower urinary tract symptoms; I73.9 Peripheral vascular disease, unspecified; J44.9 Chronic obstructive pulmonary disease, unspecified; Z23 Encounter for immunization; Z95.1 Presence of aortocoronary bypass graft; Z95.810 Presence of automatic (implantable) cardiac defibrillator; Z79.82 Long term (current) use of aspirin; Z79.01 Long term (current) use of anticoagulants; Z79.899 Other long term (current) drug therapy; Z87.891 Personal history of nicotine dependence
CPT/HCPCS: 36415; 71045; 71250; 80048; 80061; 83735; 83880; 84100; 84132; 84443; 84484; 85025; 87426; 93005; 93306; 94640; 97161; 97162; 97166; 97535; 97802; 99251; 99285; G0008; Q9957; 90686; A4216; C8929; G0463; J0610; J1940

== ENCOUNTER → 2021-04-29 09:24 | Outpatient (CLI) | payer MEDICARE, OTHER, SELFPAY ==
[2021-04-29 09:44] LABS: Platelet Count 131 K/mm3 (150-450)
[2021-04-29 10:00] LABS: International Normalized Ratio 1.2; Prothrombin Time (Protime)PT. 14.1 SECONDS (11.7-14.9)
[2021-04-29 10:01] LABS: Partial Thromboplast Time 29.5 Seconds (24.1-36.2)
== END ==
PROVIDERS: Referring Provider Nurse Practitioner Acute Care; Visit Provider Nurse Practitioner Acute Care
DX: R06.00 Dyspnea, unspecified (principal); K57.90 Diverticulosis of intestine, part unspecified, without perforation or abscess without bleeding; Z79.01 Long term (current) use of anticoagulants
CPT/HCPCS: 36415; 85049; 85610; 85730

== ENCOUNTER → 2021-05-01 06:18 | Outpatient (CLI) | payer MEDICARE, OTHER, SELFPAY ==
[2021-05-01 07:20] LABS: Platelet Count 129 K/mm3 (150-450)
[2021-05-01 07:30] LABS: Protein, Urine (Random) 12.2 mg/dL (<11.9); Protein:Creat Ratio 202 mg/g CRE (0-200)
[2021-05-01 07:53] LABS: BUN 95 mg/dL (7-18); BUN/Creat Ratio 32.5 RATIO (10-20); Calcium,Total 9.4 mg/dL (8.5-10.1); Carbon Dioxide > 45.0 mmol/L (21.0-32.0); Chloride 84 mmol/L (98-107); Creatinine, Serum 2.92 mg/dL (0.70-1.30); EST Glomerular Filtration Rate 23 mL/min (>60); Est Glom Filt Rate - Afr Amer 27 mL/min (>60); Glucose 98 mg/dL (74-106); Potassium 3.7 mmol/L (3.5-5.1); Sodium Level 135 mmol/L (136-145)
[2021-05-01 08:11] LABS: International Normalized Ratio 2.3; Prothrombin Time (Protime)PT. 24.8 SECONDS (11.7-14.9)
[2021-05-01 08:12] LABS: Partial Thromboplast Time 43.4 Seconds (24.1-36.2)
== END ==
PROVIDERS: Internal Medicine Nephrology; Referring Provider Nurse Practitioner Acute Care; Visit Provider Nurse Practitioner Acute Care
DX: N18.32 Chronic kidney disease, stage 3b (principal); R91.8 Other nonspecific abnormal finding of lung field; Z79.01 Long term (current) use of anticoagulants
CPT/HCPCS: 36415; 80048; 82570; 84156; 85049; 85610; 85730

== ENCOUNTER → 2021-05-05 08:28 | Outpatient (CLI) | payer MEDICARE, OTHER, SELFPAY ==
[2021-05-05] VITALS (10 sets, daily range): BP systolic 105–132; BP diastolic 54–71; PULSE 68–79; RESP 16–23; TEMP 36.7; O2SAT 95–100; BMI 34.1
--- NOTE | 2021-05-05 | IMM_PTH ---
PATIENT: MOE CAMEJO LOC: CT U#:[id number] AGE/SX: 74/M ROOM: RE05/05/[address]: OSMANY Hampton : 1950 BED: DIS: SPEC #: [id number] RECD: 05/06/21 12:55 STATUS: NICHOLE REQ #: [id number] CASTILLO: 05/05/21 00:[address]: Claudia Hernandez NP DEPT: IMMUNOHISTOCHEMISTRY RECD BY: Celia Carney ENTERED: 05/06/21 12:57 SP TYPE: IMMUNO OTHR DR: Tyrone Bhakta Tissues: Right upper lobe of lung, NOS Procedures: RCC (add) NAPSIN A (add) CK20 (add) CK5-6 (add) CK7 (add) CK8 (add) HEP PAR (add) TTF1 (add) Pankeratin (initial) P40 (add) PSAP (add) PHYSICIAN & INSTITUTION [place] [id number] SPECIMEN INFORMATION: Tissue Source: Right upper lung mass Clinical Info: Right upper lung mass Specimen Number: [id number] CPT code: 31316, 61977 x10 METHODOLOGY: Deparaffinized sections of prefer/formalin-fixed tissue or PAP/DQ stained slides are incubated with monoclonal/polyclonal antibodies/oligonucleotide probes. Localization is made via biotin free immunoperoxidase method. Appropriate controls are performed and reacted as expected. Results on target cell population are indicated in the following table: RESULTS: ANTIBODY / CLONE RESULT AE1-3 (AE1/AE3/PCK26) positive CK7 (OV-TL12/30) positive CK8 (45oevuU80) positive CK20 (KS20.8) negative TTF-1 (8G7G3/1) negative Napsin A (Rabbit Polyclonal) negative HepPar (OCh1E5) negative RCC (PN-15) negative PSAP (PASE/4LJ) negative CK5-6 (D5 & 1684) positive P40 (BC28) positive These tests were developed and their performance characteristics determined by [facility]. They may not have been cleared or approved by the U.S. Food and Drug Administration. The FDA has determined that such clearance or approval is not necessary. The above immunohistochemical/dualISH markers are ordered and reviewed by the Pathologist. INTERPRETATION: Right upper lung mass, CT-guided biopsy: Non-small cell carcinoma, favor squamous cell carcinoma. MATT:liz 05/07/2021
--- NOTE | 2021-05-05 08:44 | CT_ITS ---
PROCEDURE: CT GUIDED CORE NEEDLE BIOPSY OF A right upper lobe LUNG LESION INDICATION: Male, 70 years old. Right lung mass and gt; 2 cm -- on Xarelto PHYSICIAN: Dr. ZAC Acevedo CONSENT: Written informed consent was obtained having explained the risks, benefits and alternatives in detail with the patient who accepted the risks and agreed to proceed. Laboratory review and clinical assessment was performed. CONSCIOUS SEDATION PROTOCOL: The Drugs used were: 2 mg Versed, IV., and 50 mcg Fentanyl, IV. The sedation time was: 22 minutes. Conscious sedation was started at 11:16 AM and terminated at 1138. The conscious sedation protocol was independently monitored. RADIATION DOSAGE (If Supplied By Facility): CTDIvol = ( 22 ) mGy, DLP = ( 380.53 ) mGycm Individualized dose optimization techniques were used for this CT. TECHNIQUE: The patient was placed in the right anterior oblique position. A noncontrast CT was performed to localize the lesion in the right upper lobe . The skin surface was prepped and draped in a sterile fashion. 1% lidocaine was used for local anesthesia. Using CT guidance, a 20-gauge coaxial biopsy device was advanced to the periphery of the lesion. A total of 7 core specimens were obtained. The specimens were placed in a formalin solution. A post procedure CT demonstrated no adverse sequelae or pneumothorax. The patient tolerated the procedure well without adverse event. A negative biopsy does not exclude malignancy. Further imaging or clinical followup based on patient condition and degree of clinical suspicion for malignancy. Suggest rebiopsy, if biopsy results do not match with clinical scenario. CT/Biopsy/Inj or Needle Placement IMPRESSION: 1. CT directed core needle biopsy of the using CT image guidance with image documentation as described. Pathology results are pending. 2. Conscious Sedation protocol utilized with independent monitoring. Electronically Signed: Tra Myrick MD at 12:54 EDT , Service support ,
[2021-05-05 09:48] LABS: Platelet Count 133 K/mm3 (150-450)
[2021-05-05 09:55] LABS: International Normalized Ratio 1.2; Prothrombin Time (Protime)PT. 14.1 SECONDS (11.7-14.9)
[2021-05-05 09:56] LABS: Partial Thromboplast Time 31.8 Seconds (24.1-36.2)
[2021-05-05] MEDS: Midazolam 2 MG/2 ML Syringe IV (11:16)
[2021-05-05] MEDS: fentaNYL 100 MCG/2 ML Ampul IV (11:16)
[2021-05-05] MEDS: Lidocaine 2% (20 ml mdv) 20 ML Vial INFILT (11:20)
--- NOTE | 2021-05-05 11:30 | ASPIGT_PTH ---
PATIENT: MOE CAMEJO LOC: CT U#:[id number] AGE/SX: 74/M ROOM: RE05/05/[address]: OSMANY Hampton : 1950 BED: DIS: SPEC #: [id number] RECD: 05/05/21 11:45 STATUS: NICHOLE DOMINGO #: [id number] CASTILLO: 05/05/21 11:[address]: Claudia Hernandez NP DEPT: SURGICAL PATHOLOGY RECD BY: Kaitlin Yao ENTERED: 05/05/21 13:04 SP TYPE: ASP RAD CONSTANTINO DR: Tyrone Bhakta Tissues: Lung, NOS Procedures: FNA Specimen Adequacy Special Stain Group II Surgery Specimen Level IV Imprint (control) HEADER OPERATION: CT-guided right lung biopsy PRE-OP DIAGNOSIS: Right lung mass TISSUE SUBMITTED: Right upper lung mass 20-gauge x7 cores MICROSCOPIC DIAGNOSIS Right upper lobe lung mass, CT-guided core biopsy: Non-small cell carcinoma, favor squamous cell carcinoma. See comment. SJ:liz 05/06/2021 COMMENT The specimen is evaluated at the time of biopsy by Dr. Torres. Immediate Evaluation: Set 1 - Negative for malignant cells (three touch imprints). Set 2 ? Rare atypical cells (two touch imprints). Immunohistochemistry ([id number]) supports the above diagnosis. Molecular studies on the tumor can be performed if clinically indicated. Please notify the laboratory if they are needed. Case has been reviewed in consultation with Dr. Mackay who concurs with the above diagnosis. IDC:AM MICROSCOPIC DESCRIPTION Slides are reviewed. GROSS DESCRIPTION Received in fixative is one container labeled with the patient's name and designated right lung biopsy. The specimen consists of multiple irregular and elongated fragments of pete tissue that in aggregate measure 1 x 0.3 x <0.1 cm. The specimen is totally submitted in one cassette. Five touch imprints are prepared at the time of core biopsy. / AM:liz 05/05/21 TC:0 [facility]: [id number], [id number], [id number] ADDENDUM ADDENDUM ADDENDUM ADDENDUM ADDENDUM ADDENDUM 06/02/2021 10:26 ADDENDUM 06/09/2021 10:00 ADDENDUM 06/02/2021 10:26 ADDENDUM 06/02/2021 10:26 ADDENDUM 06/02/2021 10:26 ADDENDUM 06/02/2021 10:26 PD-L1 (KEYTRUDA) IMMUNOHISTOCHEMICAL ANALYSIS FROM [facility] [employer] [employer] RESULTS: Tumor proportion score: 25-30% / Positive Please see complete report in e-chart or EMR ONKOSIT NGS EGFR SEQUENCING REPORT FROM [facility] [employer] [employer] RESULT SUMMARY: Abnormal IMMUNOTHERAPY BIOMARKERS: Tumor Mutation [place]: Low (7.8 Mutations / MB) Microsatellite Instability: MSI Negative PERTINENT NEGATIVE RESULTS: The following genes are NEGATIVE for clinically relevant mutations. Mutational hotspots and surrounding exonic regions were interrogated for DNA level point mutations and indels (fusions not assayed). AKT1, APC, ARID1A, BALJINDER, BRAF, BRCA1, BRCA2, CDH1, CTNNB1, EGFR, EPCAM, ERBB2, ERBB4, FBXW7, FGFR1, FGFR2, FGFR3, GNA11, GNAQ, GNAS, HRAS, IDH1, IDH2, KDR, KIT, KRAS, MEN1, MET, MLH1, MSH2, MSH6, NRAS, PDGFRA, PIK3CA, PMS2, POLE, PTEN, PTPN11, RET, SMAD4, SMO, STK11, TERT, TSC1, TSC2, VHL Please see complete report in e-chart or EMR
--- NOTE | 2021-05-05 11:45 | RAD_ITS ---
STUDY: X-RAY CHEST REASON FOR EXAM: Male, 70 years old. Lung bx -- immediately post lung biopsy TECHNIQUE: AP inspiration and expiration views. COMPARISON: Comparison is made with prior study 04/20/2021. FINDINGS: Immediate post right lung biopsy radiographs. There is no evidence of pneumothorax. There is a small amount of the subcutaneous air overlying the right hemithorax. RAD/Chest Insp/Exp 2 View IMPRESSION: No evidence of pneumothorax on the immediate post right lung biopsy radiographs. Electronically Signed: Tra Myrick MD at 12:44 EDT , Service support ,
--- NOTE | 2021-05-05 13:50 | RAD_ITS ---
STUDY: X-RAY CHEST REASON FOR EXAM: Male, 70 years old. Lung bx -- 2 hours post lung biopsy TECHNIQUE: AP inspiration and expiration views. COMPARISON: Comparison is made with prior study done earlier today. FINDINGS: Small amount of subcutaneous emphysema overlying the right lateral chest wall. There is evidence of a small 5% right apical pneumothorax. The patient is asymptomatic. RAD/Chest Insp/Exp 2 View IMPRESSION: 5% right apical pneumothorax. The patient is asymptomatic. Electronically Signed: Tra Myrick MD at 14:23 EDT , Service support ,
== END | disposition home or self-care (01) ==
PROVIDERS: Referring Provider Nurse Practitioner Acute Care; Visit Provider Nurse Practitioner Acute Care
DX: C34.11 Malignant neoplasm of upper lobe, right bronchus or lung (principal); J95.811 Postprocedural pneumothorax
CPT/HCPCS: 32408; 71046; 77012; 85049; 85610; 85730; 88172; 88305; 88313; 88341; 88342; 99156; J7040; C2613

== ENCOUNTER → 2021-05-14 09:48 | Outpatient (CLI) | payer MEDICARE, OTHER, SELFPAY ==
[2021-05-14 11:23] LABS: Anion Gap 3 (5-15); BUN 55 mg/dL (7-18); BUN/Creat Ratio 23.4 RATIO (10-20); Calcium,Total 9.6 mg/dL (8.5-10.1); Chloride 95 mmol/L (98-107); Creatinine, Serum 2.35 mg/dL (0.70-1.30); EST Glomerular Filtration Rate 29 mL/min (>60); Est Glom Filt Rate - Afr Amer 35 mL/min (>60); Glucose 113 mg/dL (74-106); Potassium 4.9 mmol/L (3.5-5.1); Sodium Level 136 mmol/L (136-145)
[2021-05-14 12:07] LABS: Free T3 1.7 pg/mL (2.18-3.98); T4 Free Direct 1.76 ng/dL (0.76-1.46); Thyroid Stim Hormone (TSH) 3.57 uIU/mL (0.358-3.74)
== END ==
PROVIDERS: Physician Assistant Medical; Referring Provider Internal Medicine Nephrology; Visit Provider Internal Medicine Nephrology
DX: N18.32 Chronic kidney disease, stage 3b (principal); Z79.899 Other long term (current) drug therapy
CPT/HCPCS: 36415; 80048; 84439; 84443; 84481

== ENCOUNTER → 2021-06-03 15:41 | Outpatient (CLI) | payer MEDICARE, OTHER, SELFPAY ==
--- NOTE | 2021-06-03 15:30 | PET_ITS ---
EXAMINATION: FDG PET-CT INDICATIONS: A 70-year-old male with a history of carcinoma of the lung presenting for initial staging examination. COMPARISON EXAMINATION: CT of the chest report dated 04/20/21. INDEX LESION SIZE SUV INTERPRETATION Right thoracic perihilum, infrahilar region 48.1 mm x 59.0 mm (frame 192) 29.9 max Fulfills quantitative criteria for viable neoplasm. TECHNIQUE: Following the intravenous administration of 19.23 mCi of F-18 deoxyglucose via the left hand, multiplanar image acquisitions of the head, neck, chest, abdomen and pelvis to level of mid-thigh, lower extremities obtained at one hour post radiopharmaceutical administration contemporaneously interpreted with the current CT of the head, neck, chest, abdomen and pelvis to level of mid-thigh, lower extremities dated 06/03/[address] of the chest report dated 04/20/21 reveal: SERUM GLUCOSE LEVEL: 114 mg/dl. HEIGHT: 67 inches. WEIGHT: 219 lbs. FINDINGS: 1. Increased fluorine labeled GLUCOSE is observed in the right thoracic perihilum, infrahilar region. The calculated maximum standard uptake value is 29.9. The maximum axial diameter of the corresponding soft tissue density on review of CT of the chest dated 06/03/21 is 48.1 mm x 59.0 mm. 2. Normal physiologic distribution of the radiopharmaceutical is apparent in the hepatic (2.5) and splenic parenchyma, both renal units, bladder and visualized intestinal tract. The visualized portion of the cerebral cortex demonstrate symmetric and preserved glucose metabolism. Diffuse intestinal tract activity is noted throughout all four quadrants of the abdominal-pelvic retroperitoneum and mesentery consistent with normal physiologic distribution of the radiopharmaceutical. There is an asymmetric increase in FDG uptake noted in the left cerebellar hemisphere. There is otherwise preserved glucose metabolism in the remaining visualized cerebrocortical and subcortical structures. Prominent uptake is observed in the sternoclavicular compartment of the right shoulder consistent with degenerative arthritis. Pertinent CT findings are as follows. CHEST: A right hemithorax pleural effusion reveals no evidence of quantitative scintigraphic increased FDG uptake. Ventricular pacemaker placement is defined. There is atherosclerotic calcification defined in the thoracic aorta without evidence of dilatation-aneurysm formation. Coronary arterial calcification is observed. Bilateral axillary soft tissue densities with fatty hilus are ametabolic. ABDOMEN AND PELVIS: Atherosclerotic calcification is defined in the abdominal aorta without evidence of dilatation, aneurysm formation. Abdominal-pelvic arterial calcification is observed. Bilateral inguinal soft tissue densities with fatty hilus are nonglucose avid. The left kidney is hypotrophic relative to the right renal unit. SKELETAL: Degenerative changes defined in the cervical, thoracic and lumbar spine demonstrate no evidence of glucose hypermetabolism. PET/PET/CT Tumor Base -Thigh Init IMPRESSION: 1. ABNORMAL EXAMINATION INDICATIVE OF MALIGNANT-VIABLE NEOPLASM. 2. Increased glucose concentration noted in the right thoracic perihilum, infrahilar region fulfills quantitative criteria for viable neoplasm and presumably quality control representative of the site of the patient?s histologic confirmed primary pulmonary malignancy. 3. No other quantitative significant hypermetabolic abnormalities are noted. No definitive scintigraphic evidence of distant metastatic disease. Electronic Signature Franco Robins D.O. Accurate Quantification of SUVs for this report are calculated using the exclusive [employer]. (U.S. Patent No. 10, 674, 983). Standardization and correction of the FDG SUV metric via [employer] technology allow for vendor non-specific objective quantitative examination comparison and optimization of the sensitivity and specificity of the FDG PET-CT examination. Electronically Signed: Franco Robins DO at 22:33 EST Tel , Service support ,
== END ==
PROVIDERS: Referring Provider Internal Medicine Hematology & Oncology; Visit Provider Internal Medicine Hematology & Oncology
DX: C34.2 Malignant neoplasm of middle lobe, bronchus or lung (principal)
CPT/HCPCS: 78815; A9552

== ENCOUNTER 2021-06-11 08:29 | Outpatient (RCR) | payer MEDICARE, OTHER, SELFPAY ==
[2021-05-28 11:15] LABS: ALB/GLOB Ratio 0.5 RATIO (0.9-2.4); AST(SGOT) 32 U/L (15-37); Alanine Aminotransfer ALT/SGPT 41 U/L (16-61); Albumin, Serum 2.6 g/dL (3.2-5.0); Alkaline Phosphatase 34 U/L (45-117); Anion Gap 6 (5-15); BUN 50 mg/dL (7-18); BUN/Creat Ratio 21.7 RATIO (10-20); Calcium,Total 9.4 mg/dL (8.5-10.1); Chloride 92 mmol/L (98-107); EST Glomerular Filtration Rate 30 mL/min (>60); Est Glom Filt Rate - Afr Amer 36 mL/min (>60); Globulin 4.9 g/dL (2.2-4.2); Glucose 119 mg/dL (74-106); Potassium 4.7 mmol/L (3.5-5.1); Protein, Total 7.5 g/dL (6.4-8.2); Sodium Level 133 mmol/L (136-145)
[2021-06-04 12:04] LABS: Anion Gap 4 (5-15); BUN 56 mg/dL (7-18); BUN/Creat Ratio 25.2 RATIO (10-20); Calcium,Total 9.5 mg/dL (8.5-10.1); Chloride 96 mmol/L (98-107); Creatinine, Serum 2.22 mg/dL (0.70-1.30); EST Glomerular Filtration Rate 31 mL/min (>60); Est Glom Filt Rate - Afr Amer 38 mL/min (>60); Glucose 107 mg/dL (74-106); Potassium 4.5 mmol/L (3.5-5.1); Sodium Level 134 mmol/L (136-145)
[2021-06-11 09:19] LABS: Anion Gap 6 (5-15); BUN 52 mg/dL (7-18); BUN/Creat Ratio 22.7 RATIO (10-20); Calcium,Total 9.4 mg/dL (8.5-10.1); Chloride 96 mmol/L (98-107); Creatinine, Serum 2.29 mg/dL (0.70-1.30); EST Glomerular Filtration Rate 30 mL/min (>60); Est Glom Filt Rate - Afr Amer 36 mL/min (>60); Glucose 130 mg/dL (74-106); Potassium 4.7 mmol/L (3.5-5.1); Sodium Level 138 mmol/L (136-145)
== END 2021-06-17 18:00 | disposition home or self-care (01) ==
LOC: LAB 08:29
PROVIDERS: Referring Provider Internal Medicine Nephrology; Visit Provider Internal Medicine Nephrology
DX: N18.32 Chronic kidney disease, stage 3b (principal)
CPT/HCPCS: 36415; 80048; 80053

== ENCOUNTER 2021-07-04 10:46 | Day surgery (SDC) | payer MEDICARE, OTHER, SELFPAY ==
--- NOTE | 2021-07-01 12:38 | PCM.HP.STD ---
HPI - General HPI Narrative The patient is a 70-year-old male who is followed in the pulmonary medicine clinic on an outpatient basis. If you recall, I initially met the patient in April 2021 when he was admitted to the hospital with acute decompensated heart failure. During his hospitalization, a CT chest was completed which revealed findings concerning for a large right hilar lung mass. Following discharge from the hospital, the patient was referred to undergo a CT-guided lung biopsy, which was completed on May 05. Pathology was consistent with non-small cell carcinoma, favor squamous cell carcinoma. A PET scan was then completed in May 2021 and revealed increased uptake in the right thoracic perihilar region. Pulmonary function studies completed in February 2021 revealed evidence of a partially reversible severe mixed ventilatory defect with symmetric reduction in diffusing capacity. The results of his PET scan and need to proceed with mediastinal lymph node sampling via EBUS was discussed with the patient at length. Risks and benefits of the proposed procedure were discussed. The patient is in agreement to proceed. [facility] Medical History Acute kidney injury superimposed on chronic kidney disease Acute on chronic combined severe HF Acute on chronic respiratory failure with hypoxia and hypercapnia Acute systolic congestive heart failure Anasarca Anemia Atherosclerotic heart disease of circle coronary artery without angina pectoris Atrial fibrillation Bilateral atelectasis BPH (benign prostatic hypertrophy) Chronic anticoagulation Chronic systolic (congestive) heart failure COPD (chronic obstructive pulmonary disease) Diverticulosis Former smoker, stopped smoking in distant past History of left heart catheterization (LHC) (~08/09/20) History of stent insertion of renal artery Hyperlipemia Hypertension Hypothyroidism Ischemic cardiomyopathy Left renal artery stenosis MCC (current) use of anticoagulants Pacemaker Peripheral arterial occlusive disease Pleural effusion Pulmonary hypertension Respiratory failure with hypoxia and hypercapnia Urine retention Warfarin-induced coagulopathy Home Medications albuterol sulfate 1 - 2 puff INHALATION Q4H PRN PRN 12/01/17 [History Last Taken 08/03/20] aspirin 81 mg PO DAILY@0800 12/01/17 [History Last Taken 05/04/21] levothyroxine 112 mcg PO DAILY 12/01/17 [History Last Taken 08/07/20] tamsulosin 0.4 mg PO DAILY 12/01/17 [History Last Taken 08/07/20] ferrous sulfate 325 mg PO TIDCM #1 tab 12/04/17 [Rx Last Taken 08/07/20] calcitriol 0.25 mcg capsule 0.25 mcg PO MOWEFR cap 08/11/18 [History Last Taken Unknown] potassium chloride 10 mEq tablet,extended release(part/cryst) 10 meq PO DAILY tab 09/14/19 [History Last Taken 08/07/20] ezetimibe 10 mg tablet 10 mg PO QHS #90 tab 10/11/19 [Rx Last Taken Unknown] fenofibrate nanocrystallized 145 mg tablet 145 mg PO QHS #90 tab 10/11/19 [Rx Last Taken 08/06/20] rosuvastatin 40 mg tablet 40 mg PO QHS #90 tab 10/11/19 [Rx Last Taken 08/06/20] Handicap Placard #1 ea 08/29/20 [Rx Last Taken Unknown] isosorbide dinitrate 5 mg tablet 5 mg PO TID #270 tab 10/28/20 [Rx Last Taken Unknown] spironolactone 25 mg tablet 25 mg PO DAILY #90 tab 12/24/20 [Rx Last Taken Unknown] amiodarone 200 mg PO DAILY #30 tab 04/22/21 [Rx Last Taken Unknown] furosemide 80 mg PO BIDLX #60 tab 04/22/21 [Rx Last Taken Unknown] budesonide-formoterol HFA 160 mcg-4.5 mcg/actuation aerosol inhaler 2 inh INHALATION BID #10.2 g 04/29/21 [Rx Last Taken Unknown] tiotropium bromide 2.5 mcg/actuation mist for inhalation 2 inh INHALATION DAILY #4 g 04/29/21 [Rx Last Taken Unknown] carvedilol 25 mg tablet 25 mg PO BID #180 tab 05/12/21 [Rx Last Taken Unknown] rivaroxaban 20 mg tablet 20 mg PO DAILY #30 tab 05/23/21 [Rx Last Taken Unknown] albuterol sulfate 90 mcg/actuation aerosol inhaler 2 puff INHALATION Q4H PRN #8.5 g 06/20/21 [Rx Last Taken Unknown] Allergy/AdvReac Type Severity Reaction Status Date / Time No Known Allergies Allergy Verified 05/14/21 09:09 Family History Father CAD (coronary artery disease) Mother CAD (coronary artery disease) Brother CAD (coronary artery disease) Hypertension Sister CAD (coronary artery disease) Hypertension Surgical History AICD (automatic cardioverter/defibrillator) present History of implantable cardioverter-defibrillator (ICD) placement History of stent insertion of renal artery (03/14/08) Status post aortobifemoral bypass surgery (04/25/01) Stented coronary artery Social History Smoking Status: Former smoker pack-years: 45 Tobacco: How many years used: 30 alcohol intake: never caffeine: Yes Type: coffee ROS ROS Narrative As per HPI Physical Exam Const alert and no apparent distress General Appearance: cooperative HEENT normocephalic and head/scalp atraumatic Eyes PERRL and EOMs intact bilaterally Neck supple General: trachea midline Resp Auscultation: diminished lung sounds Cardio regular rate and regular rhythm GI normal to inspection, nondistended, normoactive bowel sounds Extremity no clubbing, cyanosis or edema Skin no rashes or lesions noted Neuro CN's II-XII intact bilaterally and no focal motor deficits Psych affect normal Appearance: appropriate Assessment & Plan Assessment/Plan (1) Non-small cell cancer of right lung: PLAN: The patient has known non-small cell lung cancer following CT-guided lung biopsy. Recent PET scan did reveal uptake in the right perihilar region. The patient is currently established with Dr. Vidal of oncology at [facility]. To facilitate further work-up/staging, we will proceed with mediastinal lymph node sampling via EBUS. I have discussed the proposed procedure with the patient and he is in agreement to proceed. The patient will need to hold his Xarelto for at least 3 days prior to the EBUS.
[2021-07-04] VITALS (21 sets, daily range): BP systolic 79–141; BP diastolic 44–107; PULSE 72–90; RESP 10–22; TEMP 36.1–36.9; O2SAT 98–100; BMI 36.9
--- NOTE | 2021-07-04 | ASPIG_PTH ---
PATIENT: MOE CAMEJO LOC: EN U#:[id number] AGE/SX: 70/M ROOM: RE07/04/[address]: Dr. Herrera Hay DO : 1950 BED: DIS: 07/04/2021 SPEC #: [id number] RECD: 07/04/21 13:22 STATUS: NICHOLE LANE #: [id number] CASTILLO: 07/04/21 00:[address]: Herrera Hay DEPT: CYTOLOGY RECD BY: Melissa Castillo ENTERED: 07/04/21 13:28 SP TYPE: ASP OUT OTHR : Tyrone Bhakta Tissues: A - Lung, NOS B - Lung, NOS C - Lung, NOS D - Lung, NOS E - Lung, NOS Procedures: FNA Specimen Adequacy Special Stain Group II Surgery Specimen Level IV Cytology Other HEADER OPERATION: Endobronchial ultrasound PRE-OP DIAGNOSIS: Non-small cell cancer of right lung TISSUE SUBMITTED: A - EBUS, TBNA, site 11R #1, B - EBUS, TBNA, site 11R #2, C - EBUS, TBNA, site 11R #3, D - EBUS, TBNA, site 11R #4, E - EBUS, TBNA, site 11R DIAGNOSIS CYTOLOGY A. EBUS, TBNA, site 11R #1: Blood and scant bronchial epithelial cells. No significant lymphocytes noted. B. EBUS, TBNA, site 11R #2: Positive for malignant cells consistent with non-small cell carcinoma. C. EBUS, TBNA, site 11R #3: Negative for malignant cells. D. EBUS, TBNA, site 11R #4: Rare atypical epithelial cells suspicious for malignancy. E. EBUS, TBNA, site 11R (cell block): Positive for malignant cells consistent with squamous cell carcinoma See comment. AM:liz 07/07/2021 COMMENT The specimen is evaluated at the time of procedure by Dr. Mackay. Rapid OnSite Evaluation: A. EBUS, TBNA, site 11R #1: Blood and scant bronchial epithelial cells. No significant lymphocytes noted. B. EBUS, TBNA, site 11R #2: Positive for malignant cells consistent with non-small cell carcinoma. C. EBUS, TBNA, site 11R #3: Negative for malignant cells. D. EBUS, TBNA, site 11R #4: Rare atypical epithelial cells suspicious for malignancy. E. Immunohistochemistry ([id number]) supports the above diagnosis. CYTOLOGY STUDY Slides are reviewed. CYTOLOGY GROSS A - Received labeled with the patient's name and and designated EBUS, TBNA, site 11R #1. The specimen consists of two stained smears for ANTHONY (Rapid OnSite Evaluation). B - Received labeled with the patient's name and and designated EBUS, TBNA, site 11R #2. The specimen consists of two stained smears for ANTHONY. C - Received labeled with the patient's name and and designated EBUS, TBNA, site 11R #3. The specimen consists of two stained smears for ANTHONY. D - Received labeled with the patient's name and and designated EBUS, TBNA, site 11R #4. The specimen consists of two stained smears for ANTHONY. E - Received in RPMI is 30 ml of cloudy red, needle rinsed fluid labeled with the patient's name and and designated EBUS, TBNA, site 11R. The specimen is submitted for cell block preparation. / AM:liz 07/04/21 TC:0 CPT: 93609, 78146 x3, 53411
--- NOTE | 2021-07-04 | IMM_PTH ---
PATIENT: MOE CAMEJO LOC: EN U#:[id number] AGE/SX: 70/M ROOM: RE07/04/[address]: Dr. Herrera Hay DO : 1950 BED: DIS: 07/04/2021 SPEC #: [id number] RECD: 07/07/21 14:48 STATUS: NICHOLE REQ #: [id number] CASTILLO: 07/04/21 00:[address]: Herrera Hay DEPT: IMMUNOHISTOCHEMISTRY RECD BY: Celia Carney ENTERED: 07/07/21 14:51 SP TYPE: IMMUNO OTHR DR: Tyrone Bhakta Tissues: E - Lung, NOS Procedures: RCC (add) NAPSIN A (add) CK14 (add) CK20 (add) CK5-6 (add) CK7 (add) CK8 (add) ORTIZ-2 (add) HEP PAR (add) P53 (add) TTF1 (add) Vimentin (add) 34BE12 (add) Pankeratin (initial) P40 (add) CDX2 (add) PSAP (add) S-100 (add) PHYSICIAN & [address] [address] SPECIMEN INFORMATION: Tissue Source: E ? EBUS, TBNA, site 11R Clinical Info: Non-small cell cancer of right lung Specimen Number: [id number] CPT code: 17438, 70538 x17 METHODOLOGY: Deparaffinized sections of prefer/formalin-fixed tissue or PAP/DQ stained slides are incubated with monoclonal/polyclonal antibodies/oligonucleotide probes. Localization is made via biotin free immunoperoxidase method. Appropriate controls are performed and reacted as expected. Results on target cell population are indicated in the following table: RESULTS: ANTIBODY / CLONE RESULT Block E AE1-3 (AE1/AE3/PCK26) positive CK7 (OV-TL12/30) positive CK8 (28jmziB99) positive CK20 (KS20.8) negative ORTIZ-2 (SP21) positive CDX2 (SIU9911P) negative Vimentin (V9) negative 34BE12 (34BE12) positive S-100 (4C4.9) negative TTF-1 (8G7G3/1) negative Napsin A (Rabbit Polyclonal) negative HepPar (OCh1E5) negative RCC (PN-15) negative PSAP (PASE/4LJ) negative CK5-6 (D5 & 1684) positive CK14 (LL002) positive P40 (BC28) positive P53 (DO-7) negative These tests were developed and their performance characteristics determined by [facility]. They may not have been cleared or approved by the U.S. Food and Drug Administration. The FDA has determined that such clearance or approval is not necessary. The above immunohistochemical/dualISH markers are ordered and reviewed by the Pathologist. INTERPRETATION: Uday STEIN, TBNA, site 11R: Consistent with squamous cell carcinoma. AM:liz 07/08/2021
[2021-07-04] MEDS: Lactated Ringers 1,000 ML 15 ML IV (11:40)
--- NOTE | 2021-07-04 13:17 | OP.BRONCH_ITS ---
Patient Name: El Avery Procedure Date: 07/04/2021 11:51 AM Date of : 1950 Age: 70 Procedure: Bronchoscopy Indications: Known lung cancer Providers: Herrera Hay MD Medicines: General Anesthesia Complications: No immediate complications Procedure: Pre-Anesthesia Assessment: - A History and Physical has been performed. Patient meds and allergies have been reviewed. The risks and benefits of the procedure and the sedation options and risks were discussed with the patient. All questions were answered and informed consent was obtained. Patient identification and proposed procedure were verified prior to the procedure by the physician and the nurse in the procedure room. Mental Status Examination: alert and oriented. Airway Examination: normal oropharyngeal airway. Respiratory Examination: poor air movement. CV Examination: normal. ASA Grade Assessment: III - A patient with severe systemic disease. After reviewing the risks and benefits, the patient was deemed in satisfactory condition to undergo the procedure. The anesthesia plan was to use general anesthesia. Immediately prior to administration of medications, the patient was re-assessed for adequacy to receive sedatives. The heart rate, respiratory rate, oxygen saturations, blood pressure, adequacy of pulmonary ventilation, and response to care were monitored throughout the procedure. The physical status of the patient was re-assessed after the procedure. After I obtained informed consent, the scope was passed under direct vision. Throughout the procedure, the patient's blood pressure, pulse, and oxygen saturations were monitored continuously. The ultrasound bronchoscope was introduced through the mouth, via laryngeal mask airway and advanced to the tracheobronchial tree. The procedure was accomplished without difficulty. The patient tolerated the procedure well. Findings: The laryngeal mask airway is in good position. The vocal cords appear normal. The subglottic space is normal. The trachea is of normal caliber. The jolly is sharp. The tracheobronchial tree of the left lung was examined to at least the first subsegmental level. Bronchial mucosa and anatomy are normal; there are no endobronchial lesions, and no secretions. Right Lung Abnormalities: Extrinsic compression was found in the bronchus intermedius. The airway is moderately narrowed. The lesion was successfully traversed. The scope was withdrawn and replaced with the EBUS bronchoscope to accomplish the ultrasound examination. Lymph Nodes: An endobronchial ultrasound endoscope was utilized to systematically examine the right superior interlobar region (level 11R) in order to assist with guiding the biopsy needle. Lymph node sizing was performed via endobronchial ultrasound for known lung cancer. Sampling by transbronchial needle aspiration was also performed using an Olympus EBUS-TBNA 19 gauge needle in the right superior interlobar region (level 11R) and sent for routine cytology. - The 11R (superior interlobar) mass was evaluated. Four samples with the needle were obtained. - No discernable adenopathy was appreciated. Rather, the 11R samples were obtained from what appeared to be continuation of the patient's know lung mass. Impression: - Known lung cancer - The airway examination of the left lung was normal. - Extrinsic compression was found in the bronchus intermedius. - Endobronchial ultrasound was performed. Recommendation: - Await biopsy results. Procedure Code(s): --- Professional --- 93614, Bronchoscopy, rigid or flexible, including fluoroscopic guidance, when performed; with endobronchial ultrasound (EBUS) guided transtracheal and/or transbronchial sampling (eg, aspiration[s]/biopsy[ies]), one or two mediastinal and/or hilar lymph node stations or structures Diagnosis Code(s): --- Professional --- C34.90, Malignant neoplasm of unspecified part of unspecified bronchus or lung J98.09, Other diseases of bronchus, not elsewhere classified J98.4, Other disorders of lung R09.89, Other specified symptoms and signs involving the circulatory and respiratory systems CPT copyright 2017 [employer]. All rights reserved. The codes documented in this report are preliminary and upon label coder review may be revised to meet current compliance requirements. DO Herrera Talavera MD 07/04/2021 1:17:12 PM This report has been signed electronically. Number of Addenda: 0 Note Initiated On: 07/04/2021 11:51 AM
[2021-07-04 14:26] LABS: Troponin-I HS 32 pg/mL (3.0-78.0)
--- NOTE | 2021-07-04 14:30 | EKG12_ITS ---
Test Reason : POST OP Blood Pressure : / mmHG Vent. Rate : 086 BPM Atrial Rate : 089 BPM P-R Int : 000 ms QRS Dur : 122 ms QT Int : 390 ms P-R-T Axes : 000 034 248 degrees QTc Int : [address] & T wave abnormality, consider lateral ischemia Abnormal ECG No previous ECGs available Confirmed by GAGE MESSINA, NIKOLAS ([id number]), advertising editor KLAUDIA DAVIS ([id number]) on 07/08/2021 8:18:52 AM Referred By: Tyrone Bhakta Confirmed By:NIKOLAS ALMONTE MD
[2021-07-04 18:18] LABS: Troponin-I HS 36 pg/mL (3.0-78.0)
== END 2021-07-04 19:00 | disposition home or self-care (01) ==
LOC: EN 10:48 → AC 10:49
PROVIDERS: Anesthesiology; Visit Provider Internal Medicine Critical Care Medicine
PROC: BB4BZZZ Ultrasonography of Pleura (ICD-10-PCS; CPT 31652; principal; 2021-07-04 11:00)
DX: C34.91 Malignant neoplasm of unspecified part of right bronchus or lung (principal); I25.10 Atherosclerotic heart disease of native coronary artery without angina pectoris; I13.0 Hypertensive heart and chronic kidney disease with heart failure and stage 1 through stage 4 chronic kidney disease, or unspecified chronic kidney disease; I50.43 Acute on chronic combined systolic (congestive) and diastolic (congestive) heart failure; N18.9 Chronic kidney disease, unspecified; I27.20 Pulmonary hypertension, unspecified; I25.5 Ischemic cardiomyopathy; I48.91 Unspecified atrial fibrillation; J44.9 Chronic obstructive pulmonary disease, unspecified; E78.5 Hyperlipidemia, unspecified; E03.9 Hypothyroidism, unspecified; N40.1 Benign prostatic hyperplasia with lower urinary tract symptoms; R33.8 Other retention of urine; I73.9 Peripheral vascular disease, unspecified; Z79.82 Long term (current) use of aspirin; Z95.0 Presence of cardiac pacemaker; Z79.01 Long term (current) use of anticoagulants; Z79.899 Other long term (current) drug therapy; Z87.891 Personal history of nicotine dependence
CPT/HCPCS: 00520; 31652; 84484; 88161; 88172; 88305; 88313; 88341; 88342; 93005; J7120; J2405

== ENCOUNTER 2021-07-08 09:50 | Outpatient (RCR) | payer MEDICARE, OTHER, SELFPAY ==
[2021-06-18 08:06] LABS: Anion Gap 5 (5-15); BUN 55 mg/dL (7-18); BUN/Creat Ratio 23.7 RATIO (10-20); Calcium,Total 9.6 mg/dL (8.5-10.1); Chloride 97 mmol/L (98-107); Creatinine, Serum 2.32 mg/dL (0.70-1.30); EST Glomerular Filtration Rate 30 mL/min (>60); Est Glom Filt Rate - Afr Amer 36 mL/min (>60); Glucose 117 mg/dL (74-106); Potassium 4.7 mmol/L (3.5-5.1); Sodium Level 138 mmol/L (136-145)
[2021-07-08 11:11] LABS: Platelet Count 169 K/mm3 (150-450)
[2021-07-08 11:19] LABS: International Normalized Ratio 1.7; Prothrombin Time (Protime)PT. 19.2 SECONDS (11.7-14.9)
[2021-07-08 11:41] LABS: Anion Gap 6 (5-15); BUN 84 mg/dL (7-18); BUN/Creat Ratio 29.7 RATIO (10-20); Calcium,Total 9.1 mg/dL (8.5-10.1); Chloride 94 mmol/L (98-107); Creatinine, Serum 2.83 mg/dL (0.70-1.30); EST Glomerular Filtration Rate 24 mL/min (>60); Est Glom Filt Rate - Afr Amer 28 mL/min (>60); Glucose 126 mg/dL (74-106); Potassium 4.1 mmol/L (3.5-5.1); Sodium Level 135 mmol/L (136-145)
== END 2021-07-19 18:00 | disposition home or self-care (01) ==
LOC: LAB 09:50
PROVIDERS: Internal Medicine Critical Care Medicine; Referring Provider Internal Medicine Nephrology; Visit Provider Internal Medicine Nephrology
DX: N18.32 Chronic kidney disease, stage 3b (principal); D69.1 Qualitative platelet defects
CPT/HCPCS: 36415; 80048; 85049; 85610

== ENCOUNTER 2021-07-20 10:25 | Emergency (ER) | payer MEDICARE, OTHER, SELFPAY ==
[2021-07-20 10:26] VITALS: BP 133/72; PULSE 81; RESP 32; TEMP 36.6; O2SAT 99; BMI 34.1
--- NOTE | 2021-07-20 11:11 | RAD_ITS ---
STUDY: X-RAY CHEST REASON FOR EXAM: Male, 70 years old. Chest pain TECHNIQUE: Single frontal view of the chest. COMPARISON: 05/05/2021 FINDINGS: There is a moderate to large right-sided pleural effusion. There is cardiomegaly. There is a dual-lead cardiac device in place. Normal mediastinum and lee. Normal visualized pulmonary arteries. Normal visualized aortic arch and descending thoracic aorta. Normal visualized thoracic spine. Normal visualized ribs, clavicles, and shoulders. There is no demonstrated abnormality of the visualized soft tissue structures of the upper abdomen. RAD/Chest 1 View (Portable) IMPRESSION: Right pleural effusion, cannot exclude associated right basilar atelectasis and/or pneumonia. Cardiomegaly. Electronically Signed: Monica Núñez MD at 11:58 EST Tel , Service support ,
--- NOTE | 2021-07-20 11:11 | EKG12_ITS ---
Test Reason : SOB Blood Pressure : / mmHG Vent. Rate : 073 BPM Atrial Rate : 300 BPM P-R Int : 000 ms QRS Dur : 122 ms QT Int : 382 ms P-R-T Axes : 000 000 212 degrees QTc Int : 420 ms Atrial fibrillation with occasional ventricular-paced complexes LOW VOLTAGE QRS (LIMB LEADS) INCOMPLETE LEFT BUNDLE BRANCH BLOCK Abnormal ECG Confirmed by YONG MESSINA, YOLANDA ([id number]), medical transcription editor COMFORT SOIRANO ([id number]) on 07/23/2021 10:32:39 AM Referred By: KOSTA Confirmed By:YOLANDA BEACH MD
[2021-07-20 11:33] LABS: Absolute Lymphocyte Count 0.25 X10^3/uL (0.83-4.51); Basophil# 0.01 X10^3/uL; Basophil% 0.1 % (0-1); Hematocrit 34.4 % (40-54); Hemoglobin 10.1 g/dL (13.0-16.5); Lymphocyte # 0.25 X10^3/ul (0.83-4.51); Lymphocyte % 3.7 % (19-41); Mean Corp Hgb Conc 29.4 g/dL (32-36); Mean Corpuscular Hgb 29.9 pg (27.0-32.0); Mean Corpuscular Volume 101.8 fL (80-94); Mean Platelet Vol. 10.6 fl (6.2-12.0); Monocyte# 0.31 X10^3/uL; Monocyte% 4.6 % (0-10); NRBC Flagged by Analyzer 0 % (0-5); Neutrophil # 6.03 X10^3/uL (2.7-7.7); Neutrophil % 89.4 % (47-70); POSITIVE DIFFERENTIAL YES; Platelet Count 168 K/mm3 (150-450); RBC Distribution Width CV 14.9 % (11.6-14.6); RBC Distribution Width SD 56.3 fl (35.1-43.9); Red Blood Count 3.38 M/mm3 (4.6-6.2); White Blood Count 6.8 K/mm3 (4.4-11.0)
[2021-07-20 11:34] LABS: Differential Indicated SCAN CRITERIA MET
[2021-07-20 11:48] LABS: Anion Gap 3 (5-15); BUN 52 mg/dL (7-18); BUN/Creat Ratio 21.8 RATIO (10-20); Calcium,Total 10.1 mg/dL (8.5-10.1); Chloride 96 mmol/L (98-107); Creatinine, Serum 2.39 mg/dL (0.70-1.30); EST Glomerular Filtration Rate 29 mL/min (>60); Est Glom Filt Rate - Afr Amer 35 mL/min (>60); Estimated Creatinine Clearance 26.12 ml/min; Glucose 142 mg/dL (74-106); Potassium 4.9 mmol/L (3.5-5.1); Sodium Level 137 mmol/L (136-145); Troponin-I HS 33 pg/mL (3.0-78.0)
[2021-07-20 11:51] LABS: Hypochromasia 1+; Macrocytosis 1+; Platelet Estimate ADEQUATE (ADEQ)
[2021-07-20 11:58] LABS: BNP,B-Type NATRIURETIC PEPTIDE 514.2 pg/mL (0-100)
--- NOTE | 2021-07-20 12:16 | EDS_ITS ---
HPI History of Present Illness Chief Complaint: Shortness of Breath Narrative Narrative: 70-year-old male presenting with shortness of breath. He states has been like this for about a month and a half. Recently diagnosed with non-small cell lung cancer. He supposed for chemotherapy and radiation therapy this next week. He supposed to see Dr. Vidal. Patient states that he feels more short of breath than usual. He wears 3 L of oxygen at baseline has not had a change in this. He does not have any chest pain. He has history of COPD. He is chronically anticoagulated on Xarelto. He has had no black or bloody stools. No fevers or chills. No new or changing cough. [facility] Medical History Acute kidney injury superimposed on chronic kidney disease Acute on chronic combined severe HF Acute on chronic respiratory failure with hypoxia and hypercapnia Acute systolic congestive heart failure Alcohol use Ambulates with cane Anasarca Anemia Atherosclerotic heart disease of [place] coronary artery without angina pectoris Atrial fibrillation Bilateral atelectasis BPH (benign prostatic hypertrophy) Cancer Cardiology follow-up encounter Chronic anticoagulation Chronic systolic (congestive) heart failure COPD (chronic obstructive pulmonary disease) Diverticulosis Former smoker Former smoker, stopped smoking in distant past High cholesterol History of atrial fibrillation History of CHF (congestive heart failure) History of echocardiogram History of edema History of left heart catheterization (LHC) (~08/09/20) History of renal disease History of stent insertion of renal artery History of stress test Hyperlipemia Hypertension Hypothyroidism Ischemic cardiomyopathy Left renal artery stenosis 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 On home oxygen therapy Pacemaker Peripheral arterial occlusive disease Pleural effusion Pulmonary hypertension Respiratory failure with hypoxia and hypercapnia Shortness of breath on exertion Thyroid disease Urine retention Walker as ambulation aid Warfarin-induced coagulopathy Home Medications albuterol sulfate 1 - 2 puff INHALATION Q4H PRN PRN 12/01/17 [History Last Taken 08/03/20] aspirin 81 mg PO DAILY@0800 12/01/17 [History Last Taken 05/04/21] levothyroxine 112 mcg PO DAILY 12/01/17 [History Last Taken 07/04/21] tamsulosin 0.4 mg PO DAILY 12/01/17 [History Last Taken 08/07/20] ferrous sulfate 325 mg PO TIDCM #1 tab 12/04/17 [Rx Last Taken 08/07/20] calcitriol 0.25 mcg capsule 0.25 mcg PO MOWEFR cap 08/11/18 [History Last Taken Unknown] potassium chloride 10 mEq tablet,extended release(part/cryst) 10 meq PO DAILY tab 09/14/19 [History Last Taken 08/07/20] fenofibrate nanocrystallized 145 mg tablet 145 mg PO QHS #90 tab 10/11/19 [Rx Last Taken 08/06/20] rosuvastatin 40 mg tablet 40 mg PO QHS #90 tab 10/11/19 [Rx Last Taken 08/06/20] Handicap Placard #1 ea 08/29/20 [Rx Last Taken Unknown] isosorbide dinitrate 5 mg tablet 5 mg PO TID #270 tab 10/28/20 [Rx Last Taken 07/04/21] spironolactone 25 mg tablet 25 mg PO DAILY #90 tab 12/24/20 [Rx Last Taken 07/04/21] carvedilol 25 mg tablet 25 mg PO BID #180 tab 05/12/21 [Rx Last Taken 07/04/21] rivaroxaban 20 mg tablet 20 mg PO DAILY #30 tab 05/23/21 [Rx Last Taken 06/30/21] ezetimibe [Zetia] 10 mg PO QHS 07/03/21 [History Last Taken Unknown] tiotropium bromide [Spiriva Respimat] 2 inh INHALATION DAILY 07/03/21 [History Last Taken Unknown] budesonide-formoterol HFA 160 mcg-4.5 mcg/actuation aerosol inhaler 2 inh INHALATION BID #10.2 g 07/07/21 [Rx Last Taken Unknown] amiodarone 200 mg tablet 200 mg PO DAILY #90 tab 07/14/21 [Rx Last Taken Unknown] furosemide 40 mg PO BIDLX 07/20/21 [History Last Taken Unknown] Allergy/AdvReac Type Severity Reaction Status Date / Time No Known Allergies Allergy Verified 07/20/21 10:30 Family History Father CAD (coronary artery disease) Mother CAD (coronary artery disease) Brother CAD (coronary artery disease) Hypertension Sister CAD (coronary artery disease) Hypertension Surgical History AICD (automatic cardioverter/defibrillator) present History of cardiac catheterization History of implantable cardioverter-defibrillator (ICD) placement History of stent insertion of renal artery (03/14/08) Status post aortobifemoral bypass surgery (04/25/01) Stented coronary artery Social History Smoking Status: Former smoker pack-years: 45 Tobacco: How many years used: 30 alcohol intake: never caffeine: Yes Type: coffee ROS ROS ED Constitutional Constitutional ED: Denies fever(s) Eyes Eyes: Denies blurry vision or change in vision ENT ENT ED: Denies ear pain or sore throat Cardiovascular Cardiovascular: Denies chest pain, palpitations or racing heartbeat Respiratory/Chest Respiratory/Chest: Reports cough and dyspnea; Denies sputum Gastrointestinal Gastrointestinal: Denies abdominal pain, constipation, diarrhea, nausea or vomiting Genitourinary Genitourinary ED: Denies dysuria, hematuria or urinary frequency Musculoskeletal Musculoskeletal: Denies arthralgias, myalgias or neck pain Integumentary Denies abscess, Abrasions or rash Neurologic Neurologic: Denies headache(s), paresthesias or weakness Psychiatric Psychiatric: Denies anxiety, depression, suicidal ideation or suicidal thoughts Endocrine Endocrinology: Denies polydipsia or polyuria EXAM Physical Exam Const Vital Signs: 07/20/21 10:26 07/20/21 12:42 07/20/21 12:43 Temperature 97.8 F Temperature Source Oral Pulse Rate 81 80 Respiratory Rate 32 H 18 Respiratory Effort Normal Non-Labored Respiratory Depth Normal Respiratory Pattern Normal Blood Pressure 133/72 H 122/57 H Blood Pressure Mean 92 78 Pulse Ox 99 100 Oxygen Delivery Method Nasal Cannula Nasal Cannula Nasal Cannula Oxygen Flow Rate (L/min) 3 3 3 07/20/21 15:14 Temperature Temperature Source Pulse Rate 77 Respiratory Rate 20 H Respiratory Effort Respiratory Depth Respiratory Pattern Blood Pressure 117/61 Blood Pressure Mean Pulse Ox 99 Oxygen Delivery Method Oxygen Flow Rate (L/min) Positive well nourished General Appearance ED: NAD; Negative for pallor HEENT Reports normocephalic, head/scalp atraumatic and moist mucous membranes Eyes PERRL and EOMs intact bilaterally Neck no lymphadenopathy and supple Chest Wall inspection of chest normal and palpation of chest normal Resp clear to auscultation bilaterally Resp Narrative: Mildly tachypneic. Speaks in full sentences. Auscultation: Negative for rales, rhonchi or wheezes Cardio regular rate and regular rhythm GI normal to inspection, nondistended, normoactive bowel sounds and non-distended Auscultation: normoactive bowel sounds Palpation: soft Narrative: Deferred Back/Spine no CVA tenderness General Back: Negative for CVA tenderness Cervical Spine: Negative for cervical spine tenderness Extremity normal to inspection General Extremety ED: Negative for edema or tenderness General Extremity: Negative for edema Neuro oriented x3 and CN's II-XII intact bilaterally Sensorium / Orientation: alert Motor Exam: strength 5/5 throughout Psych mental status grossly normal Attitude: No agitated Skin no rashes or lesions noted and no wounds General Skin Exam: Negative for jaundice or pallor MDM MDM MDM Narrative Medical decision making narrative: Patient presenting with shortness of breath. His initial respiratory rate was 32 however after he settles he is only breathing 20 times per minute. Oxygen is 99%. Blood pressure and heart rate are normal. I obtained an EKG which is which is atrial fibrillation with controlled ventricular response of 73 bpm without sign of ischemic change. Patient is known to have atrial fibrillation. He is anticoagulated on Xarelto. CBC shows no leukocytosis and his hemoglobin H[place] are stable. Creatinine is near baseline. Electrolytes are unremarkable. High-sensitivity troponin is 33. BNP is elevated at 514 patient does have a slight pleural effusion on his chest x-ray is interpreted by myself. This is not causing him to be hypoxic. He has a recurrent issue with this. Patient is continue to take his Lasix and he will follow-up with cardiology tomorrow. He states he does have chemotherapy and radiation therapy scheduled for tomorrow as well. I counseled him to continue to go to this as indicated. Patient will return for any new or worsening symptoms. Impression: 1. Right pleural effusion?recurrent 2. Dyspnea Lab Data Labs: Laboratory Results - last 24 hr 07/20/21 07/20/21 07/20/21 11:25 11:25 11:25 WBC 6.8 RBC 3.38 L Hgb 10.1 L Hct 34.4 L MCV 101.8 H MCH 29.9 MCHC 29.4 L RDW Std Deviation 56.3 H RDW Coeff of Bhavna 14.9 H Plt Count 168 MPV 10.6 Immature Gran % (Auto) 2.200 H Neut % (Auto) 89.4 H Lymph % (Auto) 3.7 L [place] % (Auto) 4.6 Eos % (Auto) 0.0 Baso % (Auto) 0.1 Absolute Neuts (auto) 6.0 Absolute Lymphs (auto) 0.25 L Nucleated RBC % 0 Platelet Estimate ADEQUATE Hypochromasia 1+ Macrocytosis 1+ Sodium 137 Potassium 4.9 Chloride 96 L Carbon Dioxide 38.0 H Anion Gap 3 L BUN 52 H Creatinine 2.39 H Estim Creat Clear Calc 26.12 Est GFR (MDRD) Af Amer 35 L Est GFR (MDRD) Non-Af 29 L BUN/Creatinine Ratio 21.8 H Glucose 142 H Calcium 10.1 Troponin I High Sens 33 B-Natriuretic Peptide 514.2 H Radiography Diagnostic Testing: Clinical Impression(s) from Imaging Studies Chest X-Ray 07/20/21 11:11 IMPRESSION: Right pleural effusion, cannot exclude associated right basilar atelectasis and/or pneumonia. Cardiomegaly. Electronically Signed: Monica Núñez MD at 11:58 EST Tel , Service support , Discharge Plan Triage Chief Complaint: Shortness of Breath ED Provider: Se Sheets Dx/Rx/DC Orders Clinical Impression: Pleural effusion Instructions: ED Pleural Effusion Prescriptions: No Action calcitriol 0.25 mcg capsule 0.25 mcg PO MOWEFR RF: 0 (DME) Handicap Placard See Rx Instructions .Route .MEDSUPPLY Qty: 1 RF: 0 aspirin 81 MG tablet 81 mg PO DAILY@0800 RF: 0 tamsulosin 0.4 MG capsule 0.4 mg PO DAILY RF: 0 albuterol sulfate 1 PUFF inhaler 1 - 2 puff INHALATION Q4H PRN PRN (Reason: Bronchodialation) RF: 0 levothyroxine 112 MCG tablet 112 mcg PO DAILY RF: 0 ferrous sulfate 325 MG tablet 325 mg PO TIDCM Qty: 1 RF: 0 potassium chloride 10 mEq tablet,ER particles/crystals 10 meq PO DAILY RF: 0 ezetimibe [Zetia] 10 mg tablet 10 mg PO QHS RF: 0 Spiriva Respimat 2.5 mcg/actuation mist 2 inh INHALATION DAILY RF: 0 furosemide 80 mg tablet 40 mg PO BIDLX RF: 0 fenofibrate nanocrystallized 145 mg tablet 145 mg PO QHS Qty: 90 RF: 3 rosuvastatin 40 mg tablet 40 mg PO QHS Qty: 90 RF: 3 isosorbide dinitrate 5 mg tablet 5 mg PO TID Qty: 270 RF: 3 spironolactone 25 mg tablet 25 mg PO DAILY Qty: 90 RF: 3 carvedilol 25 mg tablet 25 mg PO BID Qty: 180 RF: 4 Xarelto 20 mg tablet 20 mg PO DAILY Qty: 30 RF: 11 budesonide-formoterol [Symbicort] 160-4.5 mcg/actuation HFA aerosol inhaler 2 inh INHALATION BID Qty: 10.2 RF: 6 amiodarone 200 mg tablet 200 mg PO DAILY Qty: 90 RF: 3 Primary Care Provider: Tyroen Bhakta Referrals: Tyrone Bhakta [Primary Care Provider] - Disposition Disposition: Home, Self Care Discharge Date/Time: 07/20/21 15:20
[2021-07-20 12:42] VITALS: BP 122/57; PULSE 80; RESP 18; O2SAT 100
[2021-07-20 12:43] VITALS: O2SAT 100
[2021-07-20 15:14] VITALS: BP 117/61; PULSE 77; RESP 20; O2SAT 99
== END 2021-07-20 15:20 | disposition home or self-care (01) ==
PROVIDERS: Emergency Provider Student in an Organized Health Care Education/Training Program; Visit Provider Student in an Organized Health Care Education/Training Program
DX: J90 Pleural effusion, not elsewhere classified (principal); J44.9 Chronic obstructive pulmonary disease, unspecified; I13.0 Hypertensive heart and chronic kidney disease with heart failure and stage 1 through stage 4 chronic kidney disease, or unspecified chronic kidney disease; I50.23 Acute on chronic systolic (congestive) heart failure; I48.91 Unspecified atrial fibrillation; N18.9 Chronic kidney disease, unspecified; I25.10 Atherosclerotic heart disease of native coronary artery without angina pectoris; I25.5 Ischemic cardiomyopathy; E78.00 Pure hypercholesterolemia, unspecified; E03.9 Hypothyroidism, unspecified; R06.02 Shortness of breath; Z95.5 Presence of coronary angioplasty implant and graft; Z95.810 Presence of automatic (implantable) cardiac defibrillator; Z95.828 Presence of other vascular implants and grafts; Z79.01 Long term (current) use of anticoagulants; Z79.82 Long term (current) use of aspirin; Z99.81 Dependence on supplemental oxygen; Z79.899 Other long term (current) drug therapy; Z87.891 Personal history of nicotine dependence
CPT/HCPCS: 71045; 80048; 83880; 84484; 85025; 93005; 99284

== ENCOUNTER 2021-07-23 11:24 | Emergency (ER) | payer MEDICARE, OTHER, SELFPAY ==
[2021-07-23] VITALS (11 sets, daily range): BP systolic 95–131; BP diastolic 35–88; PULSE 66–81; RESP 16–29; TEMP 36.6; O2SAT 66–100; BMI 33.2
--- NOTE | 2021-07-23 | FLU_PTH ---
PATIENT: MOE CAMEJO LOC: ED U#:[id number] AGE/SX: 70/M ROOM: RE07/23/[address]: Dr. Se Sheets DO : [id number] BED: DIS: 07/23/2021 SPEC #: [id number] RECD: 07/24/21 10:34 STATUS: INCHOLE DOMINGO #: [id number] CASTILLO: 07/23/21 00:[address]: Se Sheets DEPT: CYTOLOGY RECD BY: Parker White ENTERED: 07/24/21 10:34 SP TYPE: Fluid OTHR DR: Tyrone Bhakta Tissues: THORACIC FLUID Procedures: Special Stain Group II Surgery Specimen Level IV Cytospin Fluid HEADER OPERATION: Ultrasound-guided thoracentesis PRE-OP DIAGNOSIS: Right pleural effusion TISSUE SUBMITTED: Thoracentesis fluid for cytology DIAGNOSIS CYTOLOGY Thoracentesis fluid for cytology (cytospin and cell block): Negative for malignant cells. See comment. MATT:rg 07/25/2021 COMMENT Clinical correlation and appropriate follow up are necessary. CYTOLOGY STUDY Slides are reviewed. CYTOLOGY GROSS Received is 80 ml of yellow cloudy fluid labeled with the patient's name and and designated per the requisition as thoracentesis. Submitted for cytology preparation including cell block. / liz 07/24/2021 TC:5 CPT: 45069, 41779
--- NOTE | 2021-07-23 11:41 | RAD_ITS ---
STUDY: X-RAY CHEST REASON FOR EXAM: Male, 70 years old. Chest pain TECHNIQUE: Single AP portable view of the chest. COMPARISON: Comparison is made with prior study dated 07/20/2021. FINDINGS: EKG electrodes are seen. Moderate size right pleural effusion with underlying infiltration and/or atelectasis. This is unchanged. There is mild cardiac enlargement. A left-sided dual-chamber pacemaker is seen. Normal mediastinum and lee. Normal visualized pulmonary arteries. There is atherosclerotic calcification of the aortic arch with tortuosity. There are diffuse degenerative changes of the visualized thoracic spine. Normal visualized ribs, clavicles, and shoulders. There is no demonstrated abnormality of the visualized soft tissue structures of the upper abdomen. RAD/Chest 1 View (Portable) IMPRESSION: Stable right pleural effusion with underlying infiltration and/or atelectasis. Electronically Signed: Tra Myrick MD at 12:39 EST , Service support ,
[2021-07-23 12:02] LABS: Absolute Lymphocyte Count 0.26 X10^3/uL (0.83-4.51); Hemoglobin 10.5 g/dL (13.0-16.5); Lymphocyte # 0.26 X10^3/ul (0.83-4.51); Lymphocyte % 3.3 % (19-41); Mean Corp Hgb Conc 29.2 g/dL (32-36); Mean Corpuscular Hgb 29.6 pg (27.0-32.0); Mean Corpuscular Volume 101.4 fL (80-94); Monocyte# 0.48 X10^3/uL; Monocyte% 6.1 % (0-10); NRBC Flagged by Analyzer 0 % (0-5); Neutrophil # 7.03 X10^3/uL (2.7-7.7); POSITIVE DIFFERENTIAL YES; Platelet Count 205 K/mm3 (150-450); RBC Distribution Width CV 14.7 % (11.6-14.6); RBC Distribution Width SD 55.8 fl (35.1-43.9); Red Blood Count 3.55 M/mm3 (4.6-6.2); White Blood Count 7.8 K/mm3 (4.4-11.0)
[2021-07-23 12:03] LABS: Differential Indicated SCAN CRITERIA MET
[2021-07-23 12:17] LABS: Anion Gap 5 (5-15); BUN 64 mg/dL (7-18); BUN/Creat Ratio 27.8 RATIO (10-20); Calcium,Total 9.7 mg/dL (8.5-10.1); Chloride 93 mmol/L (98-107); EST Glomerular Filtration Rate 30 mL/min (>60); Est Glom Filt Rate - Afr Amer 36 mL/min (>60); Estimated Creatinine Clearance 27.14 ml/min; Glucose 145 mg/dL (74-106); Potassium 4.8 mmol/L (3.5-5.1); Sodium Level 138 mmol/L (136-145); Troponin-I HS 40 pg/mL (3.0-78.0)
[2021-07-23 12:33] LABS: International Normalized Ratio 1.5; Prothrombin Time (Protime)PT. 17.5 SECONDS (11.7-14.9)
[2021-07-23 12:38] LABS: BNP,B-Type NATRIURETIC PEPTIDE 529.7 pg/mL (0-100)
--- NOTE | 2021-07-23 13:11 | US_ITS ---
PROCEDURE: ULTRASOUND GUIDED THORACENTESIS. DATE: 07/23/2021. INDICATION: Male, 70 years old. Right pleural effusion. PHYSICIAN: Tra Myrick M.D. PROCEDURE: The risks, benefits, and alternatives to the procedure were explained to the patient. The specific risks of bleeding, infection, and pneumothorax requiring chest tube insertion were discussed and accepted. Written informed consent was obtained. Ultrasonographic evaluation of the right lower pleural space was carried out. An adequate pocket was identified. The patient was placed in the sitting, upright position. The overlying skin was prepped and draped in sterile fashion. 1% lidocaine was administered subcutaneously for local anesthesia. Under ultrasound guidance, a 5 [place] thoracentesis needle/catheter system was advanced into the right posterior lower pleural fluid collection. Approximately 1200 mL of wilber-colored fluid was drained. The catheter was removed, and a sterile dressing was applied. A specimen was collected and sent to the laboratory for analysis, as requested by the referring clinician. The patient tolerated the procedure well. A chest x-ray was ordered. US/Thoracentesis W US IMPRESSION: Ultrasound-guided right thoracentesis. Electronically Signed: Tra Myrick MD at 14:34 EST , Service support ,
--- NOTE | 2021-07-23 14:00 | RAD_ITS ---
STUDY: X-RAY CHEST REASON FOR EXAM: Male, 70 years old. Post thoracentesis TECHNIQUE: AP inspiration and expiration views. COMPARISON: Comparison is made with prior study dated 07/23/2021 at 12:08 PM.. FINDINGS: The patient is status post right thoracentesis. No evidence of pneumothorax. Residual pleural parenchymal changes at the right lung base. RAD/Chest Insp/Exp 2 View IMPRESSION: Status post right thoracentesis. There is no evidence of pneumothorax. Electronically Signed: Tra Myrick MD at 14:22 EST , Service support ,
[2021-07-23 14:43] LABS: Cytology, Body Fluid / CSF SEE PATHOLOGY REPORT
[2021-07-23 15:09] LABS: Body Fluid Mononuclear WBC # 0.173 10^3/uL; Body Fluid Mononuclear WBC % 44.7 %; Body Fluid Polynuclear WBC # 0.214 10^3/uL; Body Fluid Polynuclear WBC % 55.3 %; White Blood Count/Body Fluid 0.387 10^3/uL
[2021-07-23 15:12] LABS: Appearance/Body Fluid SL CLDY; Auto B Fluid Analyzer BKGD Ct COUNTS W/IN LIMITS (W/IN LIMITS); Color/Body Fluid YELLOW; Source- Body Fluid THORACENTESIS
[2021-07-23 15:26] LABS: Glucose, Body Fluid 117 mg/dL (40-70); LDH,Body Fluid 98 Units/l (Not Establ.); Protein, Body Fluid 2.7 g/dL (Not Establ.)
--- NOTE | 2021-07-23 15:28 | ED.VIS.DYS ---
HPI History of Present Illness Chief Complaint: Shortness of Breath Narrative Narrative: 70-year-old male with history of recurrent pleural effusion as well as non-small cell lung cancer currently awaiting and then radiation and chemotherapy. He was supposed to have this in started on Wednesday however his anticoagulation was held so that he can get a therapeutic/diagnostic thoracentesis ordered by Dr. Hay. He was coming in to get blood work today so that he could arrange this on Wednesday however he felt so short of breath and was requiring 6 L of oxygen which is above his baseline 4 L of oxygen. Patient is not having any chest pain denies that he is short of breath. [facility] Medical History Acute kidney injury superimposed on chronic kidney disease Acute on chronic combined severe HF Acute on chronic respiratory failure with hypoxia and hypercapnia Acute systolic congestive heart failure Alcohol use Ambulates with cane Anasarca Anemia Atherosclerotic heart disease of [place] coronary artery without angina pectoris Atrial fibrillation Bilateral atelectasis BPH (benign prostatic hypertrophy) Cancer Cardiology follow-up encounter Chronic anticoagulation Chronic systolic (congestive) heart failure COPD (chronic obstructive pulmonary disease) Diverticulosis Former smoker Former smoker, stopped smoking in distant past High cholesterol History of atrial fibrillation History of CHF (congestive heart failure) History of echocardiogram History of edema History of left heart catheterization (LHC) (~08/09/20) History of renal disease History of stent insertion of renal artery History of stress test Hyperlipemia Hypertension Hypothyroidism Ischemic cardiomyopathy Left renal artery stenosis 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 On home oxygen therapy Pacemaker Peripheral arterial occlusive disease Pleural effusion Pulmonary hypertension Respiratory failure with hypoxia and hypercapnia Shortness of breath on exertion Thyroid disease Urine retention Walker as ambulation aid Warfarin-induced coagulopathy Home Medications albuterol sulfate 1 - 2 puff INHALATION Q4H PRN PRN 12/01/17 [History Last Taken 08/03/20] aspirin 81 mg PO DAILY@0800 12/01/17 [History Last Taken 05/04/21] levothyroxine 112 mcg PO DAILY 12/01/17 [History Last Taken 07/04/21] tamsulosin 0.4 mg PO DAILY 12/01/17 [History Last Taken 08/07/20] ferrous sulfate 325 mg PO TIDCM #1 tab 12/04/17 [Rx Last Taken 08/07/20] calcitriol 0.25 mcg capsule 0.25 mcg PO MOWEFR cap 08/11/18 [History Last Taken Unknown] potassium chloride 10 mEq tablet,extended release(part/cryst) 10 meq PO DAILY tab 09/14/19 [History Last Taken 08/07/20] fenofibrate nanocrystallized 145 mg tablet 145 mg PO QHS #90 tab 10/11/19 [Rx Last Taken 08/06/20] rosuvastatin 40 mg tablet 40 mg PO QHS #90 tab 10/11/19 [Rx Last Taken 08/06/20] Handicap Placard #1 ea 08/29/20 [Rx Last Taken Unknown] isosorbide dinitrate 5 mg tablet 5 mg PO TID #270 tab 10/28/20 [Rx Last Taken 07/04/21] spironolactone 25 mg tablet 25 mg PO DAILY #90 tab 12/24/20 [Rx Last Taken 07/04/21] carvedilol 25 mg tablet 25 mg PO BID #180 tab 05/12/21 [Rx Last Taken 07/04/21] rivaroxaban 20 mg tablet 20 mg PO DAILY #30 tab 05/23/21 [Rx Last Taken 06/30/21] ezetimibe [Zetia] 10 mg PO QHS 07/03/21 [History Last Taken Unknown] tiotropium bromide [Spiriva Respimat] 2 inh INHALATION DAILY 07/03/21 [History Last Taken Unknown] budesonide-formoterol HFA 160 mcg-4.5 mcg/actuation aerosol inhaler 2 inh INHALATION BID #10.2 g 07/07/21 [Rx Last Taken Unknown] amiodarone 200 mg tablet 200 mg PO DAILY #90 tab 07/14/21 [Rx Last Taken Unknown] furosemide 80 mg tablet 80 mg PO BID tab 07/22/21 [History Last Taken Unknown] Allergy/AdvReac Type Severity Reaction Status Date / Time No Known Allergies Allergy Verified 07/20/21 10:30 Family History Father CAD (coronary artery disease) Mother CAD (coronary artery disease) Brother CAD (coronary artery disease) Hypertension Sister CAD (coronary artery disease) Hypertension Surgical History AICD (automatic cardioverter/defibrillator) present History of cardiac catheterization History of implantable cardioverter-defibrillator (ICD) placement History of stent insertion of renal artery (03/14/08) Status post aortobifemoral bypass surgery (04/25/01) Stented coronary artery Social History Smoking Status: Former smoker pack-years: 45 Tobacco: How many years used: 30 alcohol intake: never caffeine: Yes Type: coffee ROS ROS ED Constitutional Constitutional ED: Denies chills or fever(s) Eyes Eyes: Denies blurry vision or diplopia ENT ENT ED: Denies rhinorrhea or sore throat Cardiovascular Cardiovascular: Denies chest pain or palpitations Respiratory/Chest Respiratory/Chest: Reports cough, dyspnea and dyspnea on exertion Gastrointestinal Gastrointestinal: Denies abdominal pain or nausea Genitourinary Genitourinary ED: Denies dysuria or hematuria Musculoskeletal Musculoskeletal: Denies arthralgias or myalgias Integumentary Denies abscess or rash Neurologic Neurologic: Denies headache(s), paresthesias or weakness EXAM Physical Exam Const Vital Signs: 07/23/21 11:25 07/23/21 11:30 07/23/21 11:34 Temperature 98 F Temperature Source Temporal Pulse Rate 75 Pulse Rate [1 (Initial Baseline)] Pulse Rate [2] Pulse Rate [3] Pulse Rate [4] Respiratory Rate 24 H 29 H Respiratory Rate [1 (Initial Baseline)] Respiratory Rate [2] Respiratory Rate [3] Respiratory Rate [4] Respiratory Effort Respiratory Depth Respiratory Pattern Blood Pressure 131/73 H Blood Pressure [1 (Initial Baseline)] Blood Pressure [2] Blood Pressure [3] Blood Pressure [4] Blood Pressure Mean 92 Pulse Ox 66 100 99 Oxygen Delivery Method Room Air Non-Rebreather Nasal Cannula Oxygen Delivery Method [1 (Initial Baseline)] Oxygen Delivery Method [2] Oxygen Delivery Method [3] Oxygen Delivery Method [4] Oxygen Flow Rate (L/min) 15 6 Oxygen Flow Rate (L/min) [1 (Initial Baseline)] Oxygen Flow Rate (L/min) [2] Oxygen Flow Rate (L/min) [3] Oxygen Flow Rate (L/min) [4] 07/23/21 11:35 07/23/21 11:54 07/23/21 12:44 Temperature Temperature Source Pulse Rate 71 Pulse Rate [1 (Initial Baseline)] Pulse Rate [2] Pulse Rate [3] Pulse Rate [4] Respiratory Rate 23 H Respiratory Rate [1 (Initial Baseline)] Respiratory Rate [2] Respiratory Rate [3] Respiratory Rate [4] Respiratory Effort Short of Breath Labored Respiratory Depth Deep Respiratory Pattern Tachypnea Blood Pressure 114/60 Blood Pressure [1 (Initial Baseline)] Blood Pressure [2] Blood Pressure [3] Blood Pressure [4] Blood Pressure Mean 78 Pulse Ox 98 99 Oxygen Delivery Method Nasal Cannula Room Air Nasal Cannula Oxygen Delivery Method [1 (Initial Baseline)] Oxygen Delivery Method [2] Oxygen Delivery Method [3] Oxygen Delivery Method [4] Oxygen Flow Rate (L/min) 6 5 5 Oxygen Flow Rate (L/min) [1 (Initial Baseline)] Oxygen Flow Rate (L/min) [2] Oxygen Flow Rate (L/min) [3] Oxygen Flow Rate (L/min) [4] 07/23/21 13:24 07/23/21 13:45 07/23/21 14:20 Temperature Temperature Source Pulse Rate 71 66 Pulse Rate [1 (Initial Baseline)] 78 Pulse Rate [2] 81 Pulse Rate [3] 80 Pulse Rate [4] 77 Respiratory Rate 24 H 24 H Respiratory Rate [1 (Initial Baseline)] 21 H Respiratory Rate [2] 22 H Respiratory Rate [3] 22 H Respiratory Rate [4] 18 Respiratory Effort Short of Breath Respiratory Depth Respiratory Pattern Normal Blood Pressure 109/70 126/88 H Blood Pressure [1 (Initial Baseline)] 120/70 Blood Pressure [2] 95/65 Blood Pressure [3] 99/35 L Blood Pressure [4] 106/59 L Blood Pressure Mean 83 100 Pulse Ox 95 100 Oxygen Delivery Method Nasal Cannula Nasal Cannula Oxygen Delivery Method [1 (Initial Baseline)] Nasal Cannula Oxygen Delivery Method [2] Nasal Cannula Oxygen Delivery Method [3] Nasal Cannula Oxygen Delivery Method [4] Nasal Cannula Oxygen Flow Rate (L/min) 3 3 Oxygen Flow Rate (L/min) [1 (Initial Baseline)] 3 Oxygen Flow Rate (L/min) [2] 3 Oxygen Flow Rate (L/min) [3] 3 Oxygen Flow Rate (L/min) [4] 3 Positive well nourished General Appearance ED: NAD; Negative for pallor HEENT Reports dry mucous membranes Negative for atraumatic Mouth ED: Yes dry mucous membranes Mouth: dry mucous membranes Eyes PERRL and EOMs intact bilaterally General Eye ED: Negative for pale conjunctiva or scleral icterus Neck no lymphadenopathy and supple Resp Resp Narrative: Tachypneic decreased breath sounds right lung base. Cardio regular rate and regular rhythm Neuro oriented x3 Sensorium / Orientation: alert Psych mental status grossly normal Thought Process: normal thought process Skin General Skin Exam: Negative for jaundice or pallor MDM MDM MDM Narrative Medical decision making narrative: 70-year-old male presenting with shortness of breath that is worse. This is likely due to his pleural effusion. I obtain blood work and he has no leukocytosis. Hemoglobin is stable at 10.5. Platelets normal 205. Creatinine near baseline at 2.30. BNP is 529 this is near where it was the other day. INR is 1.5. Initial chest x-ray showed a pleural effusion which is stable. I spoke with radiology and was able to arrange a thoracentesis. Chest x-ray done after thoracentesis shows improvement of the pleural effusion and no pneumothorax on my interpretation. Radiologist does agree. Patient feeling better and is currently on 3 L of oxygen via nasal cannula. Patient was discussed with Sergei Crawford who requested the patient call the office tomorrow to set up an appointment this week. He will follow-up on the diagnostic thoracentesis labs. Patient given return precautions. Impression: 1. Pleural effusion 2. Status post thoracentesis. Lab Data Attestation: I reviewed the patient's lab results. Labs: Laboratory Results - last 24 hr 07/23/21 07/23/21 07/23/21 11:50 11:50 11:50 WBC 7.8 RBC 3.55 L Hgb 10.5 L Hct 36.0 L MCV 101.4 H MCH 29.6 MCHC 29.2 L RDW Std Deviation 55.8 H RDW Coeff of Bhavna 14.7 H Plt Count 205 MPV 11.0 Immature Gran % (Auto) 0.600 Neut % (Auto) 90.0 H Lymph % (Auto) 3.3 L [place] % (Auto) 6.1 Eos % (Auto) 0.0 Baso % (Auto) 0.0 Absolute Neuts (auto) 7.0 Absolute Lymphs (auto) 0.26 L Nucleated RBC % 0 Differential Comment COMMENT PT INR Sodium 138 Potassium 4.8 Chloride 93 L Carbon Dioxide 40.0 H Anion Gap 5 BUN 64 H Creatinine 2.30 H Estim Creat Clear Calc 27.14 Est GFR (MDRD) Af Amer 36 L Est GFR (MDRD) Non-Af 30 L BUN/Creatinine Ratio 27.8 H Glucose 145 H Calcium 9.7 Troponin I High Sens 40 B-Natriuretic Peptide 529.7 H Fluid Source Fluid Color Fluid Appearance Fluid WBC Fluid Tot Cell Count Fld Polynuclear WBCs # Fld Polynuclear WBCs % Fluid Mononuclear WBCs Fld Mononuclear WBCs % Fl Pathologist Comment Fluid Glucose Fluid Total Protein Fluid LDH Fluid Comment 2 07/23/21 07/23/21 07/23/21 11:50 13:45 13:45 WBC RBC Hgb Hct MCV MCH MCHC RDW Std Deviation RDW Coeff of Bhavna Plt Count MPV Immature Gran % (Auto) Neut % (Auto) Lymph % (Auto) [place] % (Auto) Eos % (Auto) Baso % (Auto) Absolute Neuts (auto) Absolute Lymphs (auto) Nucleated RBC % Differential Comment PT 17.5 H INR 1.5 Sodium Potassium Chloride Carbon Dioxide Anion Gap BUN Creatinine Estim Creat Clear Calc Est GFR (MDRD) Af Amer Est GFR (MDRD) Non-Af BUN/Creatinine Ratio Glucose Calcium Troponin I High Sens B-Natriuretic Peptide Fluid Source THORACENTESIS Fluid Color YELLOW Fluid Appearance SL CLDY Fluid WBC 0.387 Fluid Tot Cell Count 0.390 Fld Polynuclear WBCs # 0.214 Fld Polynuclear WBCs % 55.3 Fluid Mononuclear WBCs 0.173 Fld Mononuclear WBCs % 44.7 Fl Pathologist Comment May follow Fluid Glucose 117 H Fluid Total Protein 2.7 Fluid LDH 98 Fluid Comment 2 SEE COMMENT Radiography Diagnostic Testing: Clinical Impression(s) from Imaging Studies Chest X-Ray 07/23/21 11:41 IMPRESSION: Stable right pleural effusion with underlying infiltration and/or atelectasis. Electronically Signed: Tra Myrick MD at 12:39 EST , Service support , Thoracentesis Ultrasound 07/23/21 13:11 IMPRESSION: Ultrasound-guided right thoracentesis. Electronically Signed: Tra Myrick MD at 14:34 EST , Service support , Chest X-Ray 07/23/21 14:00 IMPRESSION: Status post right thoracentesis. There is no evidence of pneumothorax. Electronically Signed: Tra Myrick MD at 14:22 EST , Service support , Discharge Plan Triage Chief Complaint: Shortness of Breath ED Provider: Se Sheets Dx/Rx/DC Orders Instructions: Thoracentesis Dc, ED Pleural Effusion Prescriptions: No Action calcitriol 0.25 mcg capsule 0.25 mcg PO MOWEFR RF: 0 (DME) Handicap Placard See Rx Instructions .Route .MEDSUPPLY Qty: 1 RF: 0 aspirin 81 MG tablet 81 mg PO DAILY@0800 RF: 0 tamsulosin 0.4 MG capsule 0.4 mg PO DAILY RF: 0 albuterol sulfate 1 PUFF inhaler 1 - 2 puff INHALATION Q4H PRN PRN (Reason: Bronchodialation) RF: 0 levothyroxine 112 MCG tablet 112 mcg PO DAILY RF: 0 ferrous sulfate 325 MG tablet 325 mg PO TIDCM Qty: 1 RF: 0 potassium chloride 10 mEq tablet,ER particles/crystals 10 meq PO DAILY RF: 0 ezetimibe [Zetia] 10 mg tablet 10 mg PO QHS RF: 0 Spiriva Respimat 2.5 mcg/actuation mist 2 inh INHALATION DAILY RF: 0 fenofibrate nanocrystallized 145 mg tablet 145 mg PO QHS Qty: 90 RF: 3 rosuvastatin 40 mg tablet 40 mg PO QHS Qty: 90 RF: 3 isosorbide dinitrate 5 mg tablet 5 mg PO TID Qty: 270 RF: 3 spironolactone 25 mg tablet 25 mg PO DAILY Qty: 90 RF: 3 carvedilol 25 mg tablet 25 mg PO BID Qty: 180 RF: 4 Xarelto 20 mg tablet 20 mg PO DAILY Qty: 30 RF: 11 budesonide-formoterol [Symbicort] 160-4.5 mcg/actuation HFA aerosol inhaler 2 inh INHALATION BID Qty: 10.2 RF: 6 amiodarone 200 mg tablet 200 mg PO DAILY Qty: 90 RF: 3 furosemide 80 mg tablet 80 mg PO BID RF: 0 Primary Care Provider: Tyrone Bhakta Referrals: Tyrone Bhakta [Primary Care Provider] - Disposition Disposition: Home, Self Care
[2021-07-23 15:30] LABS: Lymphocytes 26 %; Mesothelial Cells 1 %; Monocytes 29 %; Neutrophil (Segs) 44 %
[2021-07-23 15:31] LABS: Body Fluid QC Type(s) BF1Q; Red Cell Count/Body Fluid 818 /mm3
--- NOTE | 2021-07-23 16:22 | ED.RN ---
pt places self on home 02. and is wheeled out of dept with ex .
[2021-07-25 09:55] LABS: Pathologist Comment/Body Fluid Reviewed
== END 2021-07-23 16:22 | disposition home or self-care (01) ==
PROVIDERS: Nurse Practitioner Acute Care; Emergency Provider Student in an Organized Health Care Education/Training Program; Visit Provider Student in an Organized Health Care Education/Training Program
DX: I25.10 Atherosclerotic heart disease of native coronary artery without angina pectoris (principal); Z87.891 Personal history of nicotine dependence; Z99.81 Dependence on supplemental oxygen
CPT/HCPCS: 32555; 71045; 71046; 80048; 82945; 83615; 83880; 84157; 84484; 85025; 85610; 87070; 87075; 87205; 88108; 88305; 88313; 89050; 93005; 99284

== ENCOUNTER 2021-08-01 11:54 | Observation (INO) | payer MEDICARE, OTHER, SELFPAY ==
[2021-08-01] VITALS (8 sets, daily range): BP systolic 102–134; BP diastolic 51–61; PULSE 60–74; RESP 18–30; TEMP 36.5–36.7; O2SAT 94–100; BMI 33.4; BMI 31.6
--- NOTE | 2021-08-01 12:13 | EKG12_ITS ---
Test Reason : SOB Blood Pressure : / mmHG Vent. Rate : 066 BPM Atrial Rate : 441 BPM P-R Int : 000 ms QRS Dur : 122 ms QT Int : 414 ms P-R-T Axes : 000 009 215 degrees QTc Int : 434 ms Undetermined rhythm : Consider Atrial Fibrillation Incomplete left bundle branch block Abnormal ECG Confirmed by YONG MESSINA, YOLANDA ([id number]), order editor KLAUDIA DAVIS ([id number]) on 08/04/2021 11:08:01 AM Referred By: ALEXANDER Confirmed By:YOLANDA BEACH MD
--- NOTE | 2021-08-01 12:14 | EDS_ITS ---
HPI History of Present Illness Chief Complaint: Shortness of Breath Detail of Chief Complaint: Shortness of breath, fatigue, no appetite, no energy unable to care for rod Informant: patient Onset/Context/Timing Onset: Days Context: Gradual Onset Timing: Continuous Quality: Dyspnea and dyspnea on exertion with fatigue and generalized weakness Location: Not applicable Current Severity: Mild Maximum Severity: Severe Worsened by: Activity Relieved by: Less with rest Associated Symptoms Associated Symptoms: Per HPI Narrative Narrative: Patient is an elderly male with multiple medical problems which include coronary disease, pulmonary disease, recurrent pleural effusion. Patient states he lives with his ex-. He is unable to care for himself. He believes he was recently tested for COVID and was negative. He does report fatigue and weight loss. He reports decreased appetite. Denies loss of taste or smell. He denies rhinorrhea, congestion postnasal drainage. Does have a cough. He is on chronic oxygen. Prior similar symptoms: Yes Recent Illness/Hospitalization: Yes [facility] Medical History Acute kidney injury superimposed on chronic kidney disease Acute on chronic combined severe HF Acute on chronic respiratory failure with hypoxia and hypercapnia Acute systolic congestive heart failure Alcohol use Ambulates with cane Anasarca Anemia Atherosclerotic heart disease of [place] coronary artery without angina pectoris Atrial fibrillation Bilateral atelectasis BPH (benign prostatic hypertrophy) Cancer Cardiology follow-up encounter Chronic anticoagulation Chronic systolic (congestive) heart failure COPD (chronic obstructive pulmonary disease) Diverticulosis Former smoker Former smoker, stopped smoking in distant past High cholesterol History of atrial fibrillation History of CHF (congestive heart failure) History of echocardiogram History of edema History of left heart catheterization (LHC) (~08/09/20) History of renal disease History of stent insertion of renal artery History of stress test Hyperlipemia Hypertension Hypothyroidism Ischemic cardiomyopathy Left renal artery stenosis 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) use of anticoagulants On home oxygen therapy Pacemaker Peripheral arterial occlusive disease Pleural effusion Pulmonary hypertension Respiratory failure with hypoxia and hypercapnia Shortness of breath on exertion Thyroid disease Urine retention Walker as ambulation aid Warfarin-induced coagulopathy Home Medications albuterol sulfate 1 - 2 puff INHALATION Q4H PRN PRN 12/01/17 [History Last Taken 08/03/20] aspirin 81 mg PO DAILY@0800 12/01/17 [History Last Taken 05/04/21] levothyroxine 112 mcg PO DAILY 12/01/17 [History Last Taken 07/04/21] tamsulosin 0.4 mg PO DAILY 12/01/17 [History Last Taken 08/07/20] ferrous sulfate 325 mg PO TIDCM #1 tab 12/04/17 [Rx Last Taken 08/07/20] calcitriol 0.25 mcg capsule 0.25 mcg PO MOWEFR cap 08/11/18 [History Last Taken Unknown] potassium chloride 10 mEq tablet,extended release(part/cryst) 10 meq PO DAILY tab 09/14/19 [History Last Taken 08/07/20] fenofibrate nanocrystallized 145 mg tablet 145 mg PO QHS #90 tab 10/11/19 [Rx L ast Taken 08/06/20] rosuvastatin 40 mg tablet 40 mg PO QHS #90 tab 10/11/19 [Rx Last Taken 08/06/20] Handicap Placard #1 ea 08/29/20 [Rx Last Taken Unknown] isosorbide dinitrate 5 mg tablet 5 mg PO TID #270 tab 10/28/20 [Rx Last Taken 07/04/21] spironolactone 25 mg tablet 25 mg PO DAILY #90 tab 12/24/20 [Rx Last Taken 07/04/21] carvedilol 25 mg tablet 25 mg PO BID #180 tab 05/12/21 [Rx Last Taken 07/04/21] rivaroxaban 20 mg tablet 20 mg PO DAILY #30 tab 05/23/21 [Rx Last Taken 06/30/21] ezetimibe [Zetia] 10 mg PO QHS 07/03/21 [History Last Taken Unknown] tiotropium bromide [Spiriva Respimat] 2 inh INHALATION DAILY 07/03/21 [History Last Taken Unknown] budesonide-formoterol HFA 160 mcg-4.5 mcg/actuation aerosol inhaler 2 inh INHALATION BID #10.2 g 07/07/21 [Rx Last Taken Unknown] amiodarone 200 mg tablet 200 mg PO DAILY #90 tab 07/14/21 [Rx Last Taken Unknown] furosemide 80 mg tablet 80 mg PO BID tab 07/22/21 [History Last Taken Unknown] Allergy/AdvReac Type Severity Reaction Status Date / Time No Known Allergies Allergy Verified 08/01/21 11:54 Family History Father CAD (coronary artery disease) Mother CAD (coronary artery disease) Brother CAD (coronary artery disease) Hypertension Sister CAD (coronary artery disease) Hypertension Surgical History AICD (automatic cardioverter/defibrillator) present History of cardiac catheterization History of implantable cardioverter-defibrillator (ICD) placement History of stent insertion of renal artery (03/14/08) Status post aortobifemoral bypass surgery (04/25/01) Stented coronary artery Social History (Updated 08/01/21 @ 12:[address] Robert Shepherd MD) Smoking Status: Former smoker pack-years: 45 Tobacco: How many years used: 30 alcohol intake: never substance use type: does not use caffeine: Yes Type: coffee ROS ROS ED Constitutional Constitutional ED: Reports weight loss; Denies chills, fever(s), subjective or sweats Eyes Eyes: Denies blurry vision, change in vision or diplopia ENT ENT ED: Denies ear pain, rhinorrhea or sore throat Cardiovascular Cardiovascular: Reports palpitations; Denies chest pain, orthopnea, paroxysmal nocturnal dyspnea or racing heartbeat Respiratory/Chest Respiratory/Chest: Reports cough, dyspnea and dyspnea on exertion; Denies orthopnea, paroxysmal nocturnal dyspnea or sputum Gastrointestinal Gastrointestinal: Reports nausea; Denies abdominal pain, diarrhea or vomiting Genitourinary Genitourinary ED: Denies dysuria, hematuria or urinary frequency Musculoskeletal Musculoskeletal: Denies arthralgias or myalgias Integumentary Denies rash Neurologic Neurologic: Reports weakness; Denies headache(s) or paresthesias Psychiatric Psychiatric: Reports depression Hematologic/Lymphatic Hematologic/Lymphatic: Denies anemia, easy bleeding or easy bruising EXAM Physical Exam Const Vital Signs: 08/01/21 11:55 08/01/21 12:44 08/01/21 13:55 Temperature 97.8 F Temperature Source Oral Pulse Rate 74 66 Respiratory Rate 30 H 20 H Respiratory Effort Normal Respiratory Depth Normal Respiratory Pattern Normal Blood Pressure 115/53 L 102/51 L Blood Pressure Mean 73 68 Pulse Ox 100 100 Oxygen Delivery Method Nasal Cannula Nasal Cannula Nasal Cannula Oxygen Flow Rate (L/min) 3 3 3 08/01/21 15:13 Temperature Temperature Source Pulse Rate 65 Respiratory Rate 18 Respiratory Effort Respiratory Depth Respiratory Pattern Blood Pressure 103/58 L Blood Pressure Mean 73 Pulse Ox 100 Oxygen Delivery Method Oxygen Flow Rate (L/min) Positive well nourished, well developed and obese Constitutional Narrative: Patient does not appear well. General Appearance ED: well developed; Negative for cyanotic, diaphoretic, NAD or pallor Nutritional Appearance: obese HEENT Reports TM's clear; Denies moist mucous membranes or dry mucous membranes HEENT Narrative: Nares patent. Tongue is tacky. This may be due to mouth breathing. Negative for trauma or tenderness Tympanic Membrane ED: Yes TM's clear Mouth ED: No dry mucous membranes Mouth: No dry mucous membranes Eyes PERRL and EOMs intact bilaterally General Eye ED: Negative for pale conjunctiva or scleral icterus Neck no lymphadenopathy, supple and no JVD Chest Wall inspection of chest normal and palpation of chest normal Resp No normal respiratory effort and No clear to auscultation bilaterally Auscultation: rales bilateral base Cardio regular rhythm, S1 normal heart sound, S2 normal heart sound and no murmurs Rhythm: abnormal rhythm other (Patient has a demand pacer and reason heart rate is not regular.) GI Inspection: abdominal distention Neuro oriented x3 and CN's II-XII intact bilaterally Sensorium / Orientation: alert Psych Mood & Affect: depressed Skin no rashes or lesions noted, no wounds and No skin turgor normal General Skin Exam: Negative for jaundice or pallor MDM MDM MDM Narrative Medical decision making narrative: Presents with failure to thrive probably due to his multiple medical problems. Will obtain blood work and undergo evaluation to determine if he has a medical reason for admission otherwise we will consult case management for potential placement from the emergency department campaign management senior manager was consulted. Based on his insurance he will need a 23-hour stay prior to placement in nursing facility. Patient is willing to go to a nursing facility. Lab Data Attestation: I reviewed the patient's lab results. Lab results narrative: Patient has chronic anemia. There is also evidence of chronic end-stage renal disease stage IIIa. Glucose is elevated at 120. Patient has evidence of anemia. Labs: Laboratory Results - last 24 hr 08/01/21 08/01/21 08/01/21 12:02 12:02 12:02 WBC 8.6 RBC 3.71 L Hgb 10.7 L Hct 35.7 L MCV 96.2 H MCH 28.8 MCHC 30.0 L RDW Std Deviation 54.1 H RDW Coeff of Bhavna 15.1 H Plt Count 260 MPV 10.8 Immature Gran % (Auto) 0.800 Neut % (Auto) 88.3 H Lymph % (Auto) 3.6 L Sharkey % (Auto) 7.1 Eos % (Auto) 0.1 Baso % (Auto) 0.1 Absolute Neuts (auto) 7.5 Absolute Lymphs (auto) 0.31 L Nucleated RBC % 0 Differential Comment Platelet Estimate ADEQUATE RBC Morphology NORM C+C PT 18.5 H INR 1.6 Sodium 136 Potassium 5.1 Chloride 94 L Carbon Dioxide 41.0 H Anion Gap 1 L BUN 81 H Creatinine 2.31 H Estim Creat Clear Calc 27.03 Est GFR (MDRD) Af Amer 36 L Est GFR (MDRD) Non-Af 30 L BUN/Creatinine Ratio 35.1 H Glucose 120 H Lactic Acid Calcium 9.9 Total Bilirubin 0.90 AST 222 H ALT 191 H Alkaline Phosphatase 45 Total Protein 6.7 Albumin 2.3 L Globulin 4.4 H Albumin/Globulin Ratio 0.5 L 08/01/21 12:22 WBC RBC Hgb Hct MCV MCH MCHC RDW Std Deviation RDW Coeff of Bhavna Plt Count MPV Immature Gran % (Auto) Neut % (Auto) Lymph % (Auto) Sharkey % (Auto) Eos % (Auto) Baso % (Auto) Absolute Neuts (auto) Absolute Lymphs (auto) Nucleated RBC % Differential Comment Platelet Estimate RBC Morphology PT INR Sodium Potassium Chloride Carbon Dioxide Anion Gap BUN Creatinine Estim Creat Clear Calc Est GFR (MDRD) Af Amer Est GFR (MDRD) Non-Af BUN/Creatinine Ratio Glucose Lactic Acid 1.4 Calcium Total Bilirubin AST ALT Alkaline Phosphatase Total Protein Albumin Globulin Albumin/Globulin Ratio Radiography Chest X-Ray - ED: Read by ED Physician (Chest x-ray reveals mild residual right pleural effusion status post thoracentesis. There is notes of pneumothorax. The left hemothorax is unremarkable.) Diagnostic Testing: Clinical Impression(s) from Imaging Studies Chest X-Ray 08/01/21 12:35 IMPRESSION: Small right pleural effusion with underlying atelectasis. This is essentially unchanged. The left hemithorax is unremarkable. 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
[2021-08-01 12:33] LABS: Absolute Lymphocyte Count 0.31 X10^3/uL (0.83-4.51); Absolute Neutrophil Count 7.5 X10^3/uL (2.0-7.7); Basophil# 0.01 X10^3/uL; Basophil% 0.1 % (0-1); Eosinophil# 0.01 X10^3/uL; Eosinophils% 0.1 % (0-5); Hematocrit 35.7 % (40-54); Hemoglobin 10.7 g/dL (13.0-16.5); Lymphocyte # 0.31 X10^3/ul (0.83-4.51); Lymphocyte % 3.6 % (19-41); Mean Corpuscular Hgb 28.8 pg (27.0-32.0); Mean Corpuscular Volume 96.2 fL (80-94); Mean Platelet Vol. 10.8 fl (6.2-12.0); Monocyte# 0.61 X10^3/uL; Monocyte% 7.1 % (0-10); NRBC Flagged by Analyzer 0 % (0-5); Neutrophil # 7.54 X10^3/uL (2.7-7.7); Neutrophil % 88.3 % (47-70); POSITIVE DIFFERENTIAL YES; Platelet Count 260 K/mm3 (150-450); RBC Distribution Width CV 15.1 % (11.6-14.6); RBC Distribution Width SD 54.1 fl (35.1-43.9); Red Blood Count 3.71 M/mm3 (4.6-6.2); White Blood Count 8.6 K/mm3 (4.4-11.0)
[2021-08-01 12:35] LABS: Differential Indicated SCAN CRITERIA MET
--- NOTE | 2021-08-01 12:35 | RAD_ITS ---
STUDY: X-RAY CHEST REASON FOR EXAM: Male, 70 years old. Shortness of breath, history of recent thoracenteses TECHNIQUE: Single AP portable view of the chest. COMPARISON: Comparison is made with prior study dated 07/23/2021. FINDINGS: EKG electrodes are seen. Small right pleural effusion with underlying atelectasis and/or infiltrate. This is essentially unchanged. There is mild cardiac enlargement. A left-sided dual-chamber pacemaker is seen. Normal mediastinum and lee. Normal visualized pulmonary arteries. Normal visualized aortic arch and descending thoracic aorta. Normal visualized thoracic spine. Left calcific tendinitis. There is no demonstrated abnormality of the visualized soft tissue structures of the upper abdomen. RAD/Chest 1 View (Portable) IMPRESSION: Small right pleural effusion with underlying atelectasis. This is essentially unchanged. The left hemithorax is unremarkable. Electronically Signed: Tra Myrick MD at 12:48 EST , Service support ,
[2021-08-01 12:37] LABS: International Normalized Ratio 1.6; Prothrombin Time (Protime)PT. 18.5 SECONDS (11.7-14.9)
[2021-08-01 12:40] LABS: ALB/GLOB Ratio 0.5 RATIO (0.9-2.4); AST(SGOT) 222 U/L (15-37); Alanine Aminotransfer ALT/SGPT 191 U/L (16-61); Albumin, Serum 2.3 g/dL (3.2-5.0); Alkaline Phosphatase 45 U/L (45-117); Anion Gap 1 (5-15); BUN 81 mg/dL (7-18); BUN/Creat Ratio 35.1 RATIO (10-20); Calcium,Total 9.9 mg/dL (8.5-10.1); Chloride 94 mmol/L (98-107); Creatinine, Serum 2.31 mg/dL (0.70-1.30); EST Glomerular Filtration Rate 30 mL/min (>60); Est Glom Filt Rate - Afr Amer 36 mL/min (>60); Estimated Creatinine Clearance 27.03 ml/min; Globulin 4.4 g/dL (2.2-4.2); Glucose 120 mg/dL (74-106); Potassium 5.1 mmol/L (3.5-5.1); Protein, Total 6.7 g/dL (6.4-8.2); Sodium Level 136 mmol/L (136-145)
[2021-08-01 12:55] LABS: Platelet Estimate ADEQUATE (ADEQ); Red Cell Morphology NORM C+C NORMAL (NORM C&C)
[2021-08-01 12:58] LABS: Lactic Acid 1.4 mmol/L (0.4-1.9)
--- NOTE | 2021-08-01 16:49 | HP.PCM_ITS ---
Documented by User: OSMANY Leslie 08/01/21 17:08 [facility] - General General Date of Admission: 08/01/21 Date of Service: 08/01/21 Chief Complaint: Failure to thrive HPI Narrative MOE CAMEJO, is a 70 M who presents with complaints of fatigue and debility that has been getting increasingly worse over the past couple of months. Patient was recently diagnosed with non-small cell lung cancer and is following with oncology however has not been initiated on treatment at this time. Patient is currently on 3 L nasal cannula oxygen which is his baseline. Patient has a history of chronic hypoxemic respiratory failure, CAD, stage III chronic kidney disease, anemia, COPD, BPH. Patient is agreeable to intermediate placement and will be admitted for those arrangements to be made. [facility] Medical History (Updated 08/01/21 @ 17:28 by Trinh Kitchen) Acute kidney injury superimposed on chronic kidney disease Acute on chronic combined severe HF Acute on chronic respiratory failure with hypoxia and hypercapnia Acute systolic congestive heart failure Alcohol use Ambulates with cane Anasarca Anemia Atherosclerotic heart disease of tribal coronary artery without angina pectoris Atrial fibrillation Bilateral atelectasis BPH (benign prostatic hypertrophy) Cancer Cardiology follow-up encounter Chronic anticoagulation Chronic systolic (congestive) heart failure COPD (chronic obstructive pulmonary disease) Diverticulosis Former smoker Former smoker, stopped smoking in distant past High cholesterol History of atrial fibrillation History of CHF (congestive heart failure) History of echocardiogram History of edema History of left heart catheterization (LHC) (~08/09/20) History of renal disease History of stent insertion of renal artery History of stress test Hyperlipemia Hypertension Hypothyroidism Ischemic cardiomyopathy Left renal artery stenosis 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 Myocardial infarct On home oxygen therapy Pacemaker Peripheral arterial occlusive disease Pleural effusion Pulmonary hypertension Respiratory failure with hypoxia and hypercapnia Shortness of breath on exertion Thyroid disease Urine retention Walker as ambulation aid Warfarin-induced coagulopathy Home Medications albuterol sulfate 1 - 2 puff INHALATION Q4H PRN PRN 12/01/17 [History Last Taken 08/01/21] aspirin 81 mg PO DAILY@0800 12/01/17 [History Last Taken 08/01/21] levothyroxine 112 mcg PO DAILY 12/01/17 [History Last Taken 08/01/21] tamsulosin 0.4 mg PO DAILY 12/01/17 [History Last Taken 08/01/21] ferrous sulfate 325 mg PO TIDCM #1 tab 12/04/17 [Rx Last Taken 08/01/21] calcitriol 0.25 mcg capsule 0.25 mcg PO MOWEFR cap 08/11/18 [History Last Taken 08/01/21] potassium chloride 10 mEq tablet,extended release(part/cryst) 10 meq PO DAILY tab 09/14/19 [History Last Taken 08/01/21] fenofibrate nanocrystallized 145 mg tablet 145 mg PO QHS #90 tab 10/11/19 [Rx Last Taken 07/31/21] rosuvastatin 40 mg tablet 40 mg PO QHS #90 tab 10/11/19 [Rx Last Taken 07/31/21] Handicap Placard #1 ea 08/29/20 [Rx Last Taken Unknown] isosorbide dinitrate 5 mg tablet 5 mg PO TID #270 tab 10/28/20 [Rx Last Taken 08/01/21] spironolactone 25 mg tablet 25 mg PO DAILY #90 tab 12/24/20 [Rx Last Taken 08/01/21] carvedilol 25 mg tablet 25 mg PO BID #180 tab 05/12/21 [Rx Last Taken 08/01/21] rivaroxaban 20 mg tablet 20 mg PO DAILY #30 tab 05/23/21 [Rx Last Taken 06/30/21] ezetimibe [Zetia] 10 mg PO QHS 07/03/21 [History Last Taken 07/31/21] tiotropium bromide [Spiriva Respimat] 2 inh INHALATION DAILY 07/03/21 [History Last Taken 08/01/21] budesonide-formoterol HFA 160 mcg-4.5 mcg/actuation aerosol inhaler 2 inh INHALATION BID #10.2 g 07/07/21 [Rx Last Taken 08/01/21] amiodarone 200 mg tablet 200 mg PO DAILY #90 tab 07/14/21 [Rx Last Taken 08/01/21] furosemide 80 mg tablet 80 mg PO BID tab 07/22/21 [History Last Taken 08/01/21] Allergy/AdvReac Type Severity Reaction Status Date / Time No Known Allergies Allergy Verified 08/01/21 11:54 Family History Father CAD (coronary artery disease) Mother CAD (coronary artery disease) Brother CAD (coronary artery disease) Hypertension Sister CAD (coronary artery disease) Hypertension Surgical History AICD (automatic cardioverter/defibrillator) present History of cardiac catheterization History of implantable cardioverter-defibrillator (ICD) placement History of stent insertion of renal artery (03/14/08) Status post aortobifemoral bypass surgery (04/25/01) Stented coronary artery Social History Smoking Status: Former smoker pack-years: 45 Tobacco: How many years used: 30 alcohol intake: never substance use type: does not use caffeine: Yes Type: coffee ROS Constitutional Constitutional: Reports fatigue, weakness and weight loss; Denies anorexia, chills, fever(s) or malaise Cardiovascular Cardiovascular: Denies chest pain, edema, palpitations or syncope Respiratory/Chest Respiratory/Chest: Reports cough, shortness of breath at rest and shortness of breath with exertion Gastrointestinal Gastrointestinal: Reports nausea; Denies abdominal pain, constipation, diarrhea or vomiting Genitourinary Genitourinary: Denies dysuria Musculoskeletal Musculoskeletal: Denies back pain, extremity pain, joint pain, joint stiffness or joint swelling Integumentary Integumentary: Denies dry skin Neurologic Neurologic: Reports weakness; Denies abnormal gait, abnormal speech, confusion, dizziness or focal weakness Psychiatric Psychiatric: Reports depression; Denies anxiety Endocrine Endocrinology: Denies change in body appearance Hematologic/Lymphatic Hematologic/Lymphatic: Denies easy bleeding or easy bruising Vital Signs Vital Signs Vital Signs: 08/01/21 11:55 08/01/21 12:44 08/01/21 13:55 Temperature 97.8 F Temperature Source Oral Pulse Rate 74 66 Respiratory Rate 30 H 20 H Respiratory Effort Normal Respiratory Depth Normal Respiratory Pattern Normal Blood Pressure 115/53 L 102/51 L Blood Pressure Mean 73 68 Pulse Ox 100 100 Oxygen Delivery Method Nasal Cannula Nasal Cannula Nasal Cannula Oxygen Flow Rate (L/min) 3 3 3 08/01/21 15:13 Temperature Temperature Source Pulse Rate 65 Respiratory Rate 18 Respiratory Effort Respiratory Depth Respiratory Pattern Blood Pressure 103/58 L Blood Pressure Mean 73 Pulse Ox 100 Oxygen Delivery Method Oxygen Flow Rate (L/min) Weight Weight: 213 lb 6.519 oz Body Mass Index (BMI) 33.4 Physical Exam Const alert, oriented x3 and no apparent distress General Appearance: cooperative HEENT normocephalic and head/scalp atraumatic Eyes conjunctivae normal and no scleral icterus Neck supple General: trachea midline Resp normal respiratory effort Effort and Inspection: able to speak in complete sentences and symmetric chest movement Auscultation: rales bilateral base Cardio regular rate, regular rhythm, S1 normal heart sound, S2 normal heart sound and peripheral pulses 2+ throughout GI normal to inspection, nondistended, normoactive bowel sounds, soft to palpation and non-tender Extremity normal capillary refill and no clubbing, cyanosis or edema General Extremity: no tenderness to palpation of joints or extremities Skin General Skin Exam: no breakdown and turgor normal Lesions: no lesions Rashes: no rashes Neuro no focal motor deficits and no sensory deficits noted Speech: speech normal Motor Exam: general weakness Psych thought process normal, cooperative and affect normal Appearance: appropriate Results Lab / Micro Data Result Diagrams: 08/01/21 12:02 08/01/21 12:02 Labs: Laboratory Results - last 24 hr 08/01/21 12:02: WBC 8.6, RBC 3.71 L, Hgb 10.7 L, Hct 35.7 L, MCV 96.2 H, MCH 28.8, MCHC 30.0 L, RDW Std Deviation 54.1 H, RDW Coeff of Bhavna 15.1 H, Plt Count 260, MPV 10.8, Immature Gran % (Auto) 0.800, Neut % (Auto) 88.3 H, Lymph % (Auto) 3.6 L, [place] % (Auto) 7.1, Eos % (Auto) 0.1, Baso % (Auto) 0.1, Absolute Neuts (auto) 7.5, Absolute Lymphs (auto) 0.31 L, Nucleated RBC % 0, Differential Comment , Platelet Estimate ADEQUATE, RBC Morphology NORM C+C 08/01/21 12:02: PT 18.5 H, INR 1.6 08/01/21 12:02: Sodium 136, Potassium 5.1, Chloride 94 L, Carbon Dioxide 41.0 H, Anion Gap 1 L, BUN 81 H, Creatinine 2.31 H, Estim Creat Clear Calc 27.03, Est GFR (MDRD) Af Amer 36 L, Est GFR (MDRD) Non-Af 30 L, BUN/Creatinine Ratio 35.1 H , Glucose 120 H, Calcium 9.9, Total Bilirubin 0.90, AST 222 H, ALT 191 H, Alk aman Phosphatase 45, Total Protein 6.7, Albumin 2.3 L, Globulin 4.4 H, Albumin/Globulin Ratio 0.5 L 08/01/21 12:22: Lactic Acid 1.4 Radiology Impression Chest X-Ray 08/01/21 12:35 IMPRESSION: Small right pleural effusion with underlying atelectasis. This is essentially unchanged. The left hemithorax is unremarkable. Electronically Signed: Tra Myrick MD at 12:48 EST , Service support , Assessment & Plan Assessment/Plan (1) Adult failure to thrive: PLAN: 1. Adult failure to thrive -Admit to [facility] [place] -Case management consulted for intermediate placement -PT and OT to eval and treat -Oxygen therapy per protocol, currently on 3 L nasal cannula which is patient's baseline -Vital signs per protocol -BMP daily 2. Chronic kidney disease stage 3b -Patient's BUN and creatinine currently at baseline -BMP daily Will continue patient's home medication regimen for chronic diseases including COPD, BPH, hypothyroidism, CAD, chronic respiratory failure With the exception of potassium chloride supplementation as patient's potassium is 5.1. DVT prophylaxis-not indicated, observation status This patient was seen by Cecilia Uriostegui NP-C under the supervision of Dr. Mota 14 minutes spent in clinical coordination of patient's plan of care. Documented by User: Dr. Des Mota DO 08/01/21 18:35 HPI - General General Date of Admission: 08/01/21 [facility] Medical History (Updated 08/01/21 @ 17:28 by Trinh Kitchen) Acute kidney injury superimposed on chronic kidney disease Acute on chronic combined severe HF Acute on chronic respiratory failure with hypoxia and hypercapnia Acute systolic congestive heart failure Alcohol use Ambulates with cane Anasarca Anemia Atherosclerotic heart disease of tribal coronary artery without angina pectoris Atrial fibrillation Bilateral atelectasis BPH (benign prostatic hypertrophy) Cancer Cardiology follow-up encounter Chronic anticoagulation Chronic systolic (congestive) heart failure COPD (chronic obstructive pulmonary disease) Diverticulosis Former smoker Former smoker, stopped smoking in distant past High cholesterol History of atrial fibrillation History of CHF (congestive heart failure) History of echocardiogram History of edema History of left heart catheterization (LHC) (~08/09/20) History of renal disease History of stent insertion of renal artery History of stress test Hyperlipemia Hypertension Hypothyroidism Ischemic cardiomyopathy Left renal artery stenosis 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 Myocardial infarct On home oxygen therapy Pacemaker Peripheral arterial occlusive disease Pleural effusion Pulmonary hypertension Respiratory failure with hypoxia and hypercapnia Shortness of breath on exertion Thyroid disease Urine retention Walker as ambulation aid Warfarin-induced coagulopathy Home Medications albuterol sulfate 1 - 2 puff INHALATION Q4H PRN PRN 12/01/17 [History Last Taken 08/01/21] aspirin 81 mg PO DAILY@0800 12/01/17 [History Last Taken 08/01/21] levothyroxine 112 mcg PO DAILY 12/01/17 [History Last Taken 08/01/21] tamsulosin 0.4 mg PO DAILY 12/01/17 [History Last Taken 08/01/21] ferrous sulfate 325 mg PO TIDCM #1 tab 12/04/17 [Rx Last Taken 08/01/21] calcitriol 0.25 mcg capsule 0.25 mcg PO MOWEFR cap 08/11/18 [History Last Taken 08/01/21] potassium chloride 10 mEq tablet,extended release(part/cryst) 10 meq PO DAILY tab 09/14/19 [History Last Taken 08/01/21] fenofibrate nanocrystallized 145 mg tablet 145 mg PO QHS #90 tab 10/11/19 [Rx Last Taken 07/31/21] rosuvastatin 40 mg tablet 40 mg PO QHS #90 tab 10/11/19 [Rx Last Taken 07/31/21] Handicap Placard #1 ea 08/29/20 [Rx Last Taken Unknown] isosorbide dinitrate 5 mg tablet 5 mg PO TID #270 tab 10/28/20 [Rx Last Taken 08/01/21] spironolactone 25 mg tablet 25 mg PO DAILY #90 tab 12/24/20 [Rx Last Taken 08/01/21] carvedilol 25 mg tablet 25 mg PO BID #180 tab 05/12/21 [Rx Last Taken 08/01/21] rivaroxaban 20 mg tablet 20 mg PO DAILY #30 tab 05/23/21 [Rx Last Taken 06/30/21] ezetimibe [Zetia] 10 mg PO QHS 07/03/21 [History Last Taken 07/31/21] tiotropium bromide [Spiriva Respimat] 2 inh INHALATION DAILY 07/03/21 [History Last Taken 08/01/21] budesonide-formoterol HFA 160 mcg-4.5 mcg/actuation aerosol inhaler 2 inh INHALATION BID #10.2 g 07/07/21 [Rx Last Taken 08/01/21] amiodarone 200 mg tablet 200 mg PO DAILY #90 tab 07/14/21 [Rx Last Taken 08/01/21] furosemide 80 mg tablet 80 mg PO BID tab 07/22/21 [History Last Taken 08/01/21] Allergy/AdvReac Type Severity Reaction Status Date / Time No Known Allergies Allergy Verified 08/01/21 11:54 Family History Father CAD (coronary artery disease) Mother CAD (coronary artery disease) Brother CAD (coronary artery disease) Hypertension Sister CAD (coronary artery disease) Hypertension Surgical History AICD (automatic cardioverter/defibrillator) present History of cardiac catheterization History of implantable cardioverter-defibrillator (ICD) placement History of stent insertion of renal artery (03/14/08) Status post aortobifemoral bypass surgery (04/25/01) Stented coronary artery Social History Smoking Status: Former smoker pack-years: 45 Tobacco: How many years used: 30 alcohol intake: never substance use type: does not use caffeine: Yes Type: coffee Results Lab / Micro Data Result Diagrams: 08/01/21 12:02 08/01/21 12:02 Charges/Coding Addendum Addendum: Patient was seen and examined independently of Felisha Uriostegui, patient came to the emergency room today at [facility] with chief complaint of extreme weakness and shortness of breath. Patient was diagnosed with non-small cell lung cancer in April 2021, he has yet to receive treatment for this, they had initially set him up for radiation but then felt that he would benefit from chemotherapy first, patient canceled several appointments to oncology (Dr. Vidal), Dr. Vidal feels that he may not be a candidate due to poor performance status presently. Patient underwent a thoracentesis on 07/23/2021, he says ever since then he has not been able to perform ADLs and has been progressively getting weaker. Patient also complains of shortness of breath. Patient denies any fevers or chills. On examination he appeared his stated age, he does not appear in any respiratory distress at this time. Vital signs as documented. Skin warm and dry and without overt rashes. Neck without JVD, neck was supple, trachea midline, thyroid was normal. Lungs clear bilaterally, normal air movement was noted. Heart exam notable for regular rhythm, normal sounds and absence of murmurs, rubs or gallops. Abdomen unremarkable and without evidence of organomegaly, masses, or abdominal aortic enlargement. Bowel sounds are present, abdomen is not distended. Extremities nonedematous, no cyanosis was noted, no clubbing was noted. Neuro: Cranial nerves II through XII are grossly intact, no focal motor deficits were noted, sensation to light touch and pinprick intact, motor exam 5/5 throughout. Psych: Patient is alert and oriented x3, he does not appear anxious or depressed, he does not appear agitated. Impression: #1 generalized debility-PT and OT will see the patient, nutritional services will see the patient #2 chronic kidney disease stage IIIb-follow labs, no specific treatment #3 non-small cell lung cancer-right lung-patient is not receiving any chemotherapy or radiation therapy yet. #4 coronary artery disease-this is stable at this time, patient is on carvedilol #5 ventricular tachycardia by history-patient is currently on amiodarone #6 pulmonary hypertension-patient is not under treatment for this at this time, complicates care, medical course, recovery, and prognosis #7 ischemic cardiomyopathy-patient has an ICD and is being treated with amiodarone, carvedilol #8 chronic systolic congestive heart failure-patient is currently on diuretics and carvedilol #9 paroxysmal atrial fibrillation-patient is currently on Xarelto and carvedilol #10 hyperlipidemia-patient is currently on Zetia and fenofibrate #11 hypothyroidism-patient is on levothyroxine I have reviewed Felisha Uriostegui's history and physical including her medical assessment and plan of care and with the above additions, endorse it. Total clinical time spent by myself: 62 minutes Visit Charges OBSV E&M: 38931 Initial observation care L3
--- NOTE | 2021-08-01 17:16 | PCS.PANDOC ---
PANDEMIC DOCUMENTATION INITIATED: Date: 03/03/2021 Time: 190
[2021-08-01] MEDS: Ondansetron 4 MG/2 ML Vial IV (19:47)
[2021-08-01] MEDS: 0.9% Saline Lock 10 ML Syringe IV (19:47)
[2021-08-01] MEDS: Furosemide 80 MG Tablet PO (19:47)
[2021-08-01] MEDS: Ferrous Sulfate 325 MG Tablet PO (19:47)
[2021-08-01] MEDS: Ipratropium/Albuterol Sulfate 3 ML AMPUL.NEB INHALATION (19:52)
[2021-08-01] MEDS: Budesonide Respules 0.5 MG/2 ML AMPUL.NEB. INHALATION (19:53)
[2021-08-01] MEDS: Isosorbide DN 10 MG Tablet 5 MG PO (22:59)
[2021-08-01] MEDS: Carvedilol 25 MG Tablet PO (22:59)
[2021-08-01] MEDS: Ezetimibe 10 MG Tablet PO (23:00)
[2021-08-01] MEDS: Atorvastatin Calcium 80 MG Tablet PO (23:00)
[2021-08-01] MEDS: Fenofibrate 145 MG Tablet PO (23:00)
[2021-08-02] VITALS (9 sets, daily range): BP systolic 95–119; BP diastolic 42–77; PULSE 63–78; RESP 15–20; TEMP 36.3–36.5; O2SAT 94–98
[2021-08-02] MEDS: 0.9% Saline Lock 10 ML Syringe IV ×4 (00:34→12:42)
[2021-08-02] MEDS: Ondansetron 4 MG/2 ML Vial IV ×2 (00:34→05:35)
[2021-08-02] MEDS: Isosorbide DN 10 MG Tablet 5 MG PO ×2 (05:37→16:03)
[2021-08-02] MEDS: Levothyroxine 112 MCG Tablet PO (05:37)
[2021-08-02 06:45] LABS: BUN 84 mg/dL (7-18); Creatinine, Serum 2.37 mg/dL (0.70-1.30); EST Glomerular Filtration Rate 29 mL/min (>60); Estimated Creatinine Clearance 26.34 ml/min; Glucose 102 mg/dL (74-106)
[2021-08-02 06:46] LABS: Anion Gap 0 (5-15); BUN/Creat Ratio 35.4 RATIO (10-20); Calcium,Total 9.4 mg/dL (8.5-10.1); Chloride 95 mmol/L (98-107); Est Glom Filt Rate - Afr Amer 35 mL/min (>60); Potassium 5.3 mmol/L (3.5-5.1); Sodium Level 135 mmol/L (136-145)
[2021-08-02] MEDS: Ipratropium/Albuterol Sulfate 3 ML AMPUL.NEB INHALATION ×3 (06:58→18:47)
[2021-08-02] MEDS: Budesonide Respules 0.5 MG/2 ML AMPUL.NEB. INHALATION ×2 (07:00→18:47)
[2021-08-02] MEDS: Aspirin E.C. 81 MG Tablet PO (09:09)
[2021-08-02] MEDS: Furosemide 80 MG Tablet PO ×2 (09:09→17:18)
[2021-08-02] MEDS: Amiodarone 200 MG Tablet PO (09:10)
[2021-08-02] MEDS: Tamsulosin HCl 0.4 MG Capsule PO (09:10)
[2021-08-02] MEDS: Ferrous Sulfate 325 MG Tablet PO ×3 (09:10→16:03)
--- NOTE | 2021-08-02 09:30 | PCM.PN.HOSP ---
Documented by User: OSMANY Leslie 08/02/21 09:44 Subjective Subjective Seen and examined. Patient sitting in bed no distress noted. Patient does report pain in his left great toe and states that he has a history of gout. Objective Data Objective Data Vital Signs: Vital Signs Temp Pulse Resp BP Pulse Ox 97.7 F L 67 16 105/42 L 97 08/02/21 07:36 08/02/21 07:36 08/02/21 07:36 08/02/21 07:36 08/02/21 07:36 Oxygen Flow Rate (L/min) 3 Oxygen Delivery Method Nasal Cannula Weight: 201 lb 15.095 oz Body Mass Index (BMI) 31.6 Intake & Output: Intake and Output for Last 24 Hours 07/31/21 08/01/21 08/02/21 23:59 23:59 23:59 Output Total 410 / 410 250 / 250 Balance -410 / -410 -250 / -250 Lab / Micro Data Result Diagrams: 08/01/21 12:02 08/02/21 06:00 Labs: Laboratory Results - last 24 hr 08/01/21 12:02: WBC 8.6, RBC 3.71 L, Hgb 10.7 L, Hct 35.7 L, MCV 96.2 H, MCH 28.8, MCHC 30.0 L, RDW Std Deviation 54.1 H, RDW Coeff of Bhavna 15.1 H, Plt Count 260, MPV 10.8, Immature Gran % (Auto) 0.800, Neut % (Auto) 88.3 H, Lymph % (Auto) 3.6 L, [place] % (Auto) 7.1, Eos % (Auto) 0.1, Baso % (Auto) 0.1, Absolute Neuts (auto) 7.5, Absolute Lymphs (auto) 0.31 L, Nucleated RBC % 0, Differential Comment , Platelet Estimate ADEQUATE, RBC Morphology NORM C+C 08/01/21 12:02: PT 18.5 H, INR 1.6 08/01/21 12:02: Sodium 136, Potassium 5.1, Chloride 94 L, Carbon Dioxide 41.0 H, Anion Gap 1 L, BUN 81 H, Creatinine 2.31 H, Estim Creat Clear Calc 27.03, Est GFR (MDRD) Af Amer 36 L, Est GFR (MDRD) Non-Af 30 L, BUN/Creatinine Ratio 35.1 H, Glucose 120 H, Calcium 9.9, Total Bilirubin 0.90, AST 222 H, ALT 191 H, Alkaline Phosphatase 45, Total Protein 6.7, Albumin 2.3 L, Globulin 4.4 H, Albumin/Globulin Ratio 0.5 L 08/01/21 12:22: Lactic Acid 1.4 08/02/21 06:00: Sodium 135 L, Potassium 5.3 H, Chloride 95 L, Carbon Dioxide 40.0 H, Anion Gap 0 L, BUN 84 H, Creatinine 2.37 H, Estim Creat Clear Calc 26.34, Est GFR (MDRD) Af Amer 35 L, Est GFR (MDRD) Non-Af 29 L, BUN/Creatinine Ratio 35.4 H, Glucose 102, Calcium 9.4 Radiography Diagnostic Testing: Radiology Impression Chest X-Ray 08/01/21 12:35 IMPRESSION: Small right pleural effusion with underlying atelectasis. This is essentially unchanged. The left hemithorax is unremarkable. Electronically Signed: Tra Myrick MD at 12:48 EST , Service support , Physical Exam Const alert, oriented x3 and no apparent distress General Appearance: cooperative HEENT normocephalic and head/scalp atraumatic Head and Scalp: normocephalic Eyes conjunctivae normal and no scleral icterus Neck supple General: trachea midline Resp normal respiratory effort Effort and Inspection: able to speak in complete sentences and symmetric chest movement Auscultation: rales bilateral base Cardio regular rate, regular rhythm, S1 normal heart sound, S2 normal heart sound and peripheral pulses 2+ throughout GI normal to inspection, nondistended, normoactive bowel sounds, soft to palpation and non-tender Extremity normal capillary refill and no clubbing, cyanosis or edema General Extremity: no tenderness to palpation of joints or extremities Left Lower Extremity: foot and digits Positive for inspection (Left great toe red), palpation (Tender) and neurovascular exam (Intact) Skin General Skin Exam: no breakdown and turgor normal Lesions: no lesions Rashes: no rashes Neuro no focal motor deficits and no sensory deficits noted Speech: speech normal Motor Exam: general weakness Psych thought process normal, cooperative and affect normal Appearance: appropriate Assessment & Plan Assessment/Plan (1) Adult failure to thrive: PLAN: 1. Adult failure to thrive -Case management consulted for usp placement -PT and OT to eval and treat -Oxygen therapy per protocol, currently on 3 L nasal cannula which is patient's baseline -Vital signs per protocol -BMP daily 2. Hyperkalemia -Potassium 5.3 -Calcium gluconate, IV insulin, D5 x1 ordered -Daily BMP ordered 3. Chronic kidney disease stage 3b -Patient's BUN and creatinine currently at baseline -BMP daily 4. Gout of the left great toe -Will initiate patient on prednisone 50mg daily x5 days Will continue patient's home medication regimen for chronic diseases including COPD, BPH, hypothyroidism, CAD, chronic respiratory failure With the exception of potassium chloride supplementation as patient's potassium is 5.2. DVT prophylaxis-not indicated, observation status This patient was seen by Cecilia Uriostegui, TAPAN-C under the supervision of Dr. Mota 9 minutes spent in clinical coordination of patient's plan of care. Documented by User: Dr. Des Mota DO 08/02/21 15:16 Objective Data Lab / Micro Data Result Diagrams: 08/01/21 12:02 08/02/21 06:00 Charges/Coding Addendum Addendum: Patient was seen and examined independently of Felisha Uriostegui, his oncologist called me today and informed me that he had a discussion with the patient and his ex- whom he lives with, patient would like to go hospice, I consulted hospice today and they will see the patient in the next day or 2. Patient has severe comorbidities including lung disease and ischemic cardiomyopathy, I feel that he would be a poor candidate for chemo and radiation. On examination he appeared older than his stated age. Vital signs as documented. Skin warm and dry and without overt rashes. Neck without JVD, neck was supple, trachea midline, thyroid was normal. Lungs decreased breath sounds were noted on the right, normal air movement was noted on the left. Heart exam notable for regular rhythm, normal sounds and absence of murmurs, rubs or gallops. Abdomen unremarkable and without evidence of organomegaly, masses, or abdominal aortic enlargement. Bowel sounds are present, abdomen is not distended. Extremities nonedematous, no cyanosis was noted, no clubbing was noted. Neuro: Cranial nerves II through XII are grossly intact, no focal motor deficits were noted, sensation to light touch and pinprick intact, motor exam 5/5 throughout. Psych: Patient is alert and oriented x3, he does not appear anxious or depressed, he does not appear agitated. #1 generalized debility-patient has decided to talk with hospice concerning home hospice care, for now he will continue with PT and OT #2 chronic kidney disease stage IIIb- no specific treatment at this time since patient is going to be following up with hospice #3 non-small cell lung cancer-right lung-patient will see hospice in consultation #4 coronary artery disease-this is stable at this time, patient is on carvedilol #5 ventricular tachycardia by history-patient is currently on amiodarone #6 pulmonary hypertension-patient is not under treatment for this at this time, complicates care, medical course, recovery, and prognosis #7 ischemic cardiomyopathy-patient has an ICD and is being treated with amiodarone, carvedilol #8 chronic systolic congestive heart failure-patient is currently on diuretics and carvedilol #9 paroxysmal atrial fibrillation-patient is currently on Xarelto and carvedilol #10 hyperlipidemia-patient is currently on Zetia and fenofibrate #11 hypothyroidism-patient is on levothyroxine I have reviewed Felisha Uriostegui's progress note including her medical assessment and plan of care and with the above additions, endorse it. Total clinical time spent on this patient by myself: 20 minutes Visit Charges Inpatient E&M: 11719 Subs Hosp L2
[2021-08-02] MEDS: Carvedilol 25 MG Tablet PO (11:06)
[2021-08-02] MEDS: Spironolactone 25 MG Tablet PO (11:06)
[2021-08-02] MEDS: Dextrose 50%-Water 25 GM/50 ML DISP.SYRIN IV (11:07)
[2021-08-02] MEDS: predniSONE 10 MG Tablet 50 MG PO (12:42)
--- NOTE | 2021-08-02 13:17 | CON.PCM.ON_ITS ---
Assessment & Plan Assessment/Plan (1) Adult failure to thrive: Status: Acute Code(s): R62.7 - Adult failure to thrive Plan: Impression: -Failure to thrive secondary to non-small cell lung cancer and several comorbid conditions including severe systolic CHF, chronic kidney disease and advanced COPD. -KPS is 20%. -His ex- was present for our discussion. He is not a candidate for chemotherapy. He does not want further medical work up. He is hospice appropriate and I thererfore recommended home hospice care to which they are both agreeable. Plan: -Discussed with Dr. Mota--he will place order for hospice consultation. HPI Consult Data Date of Service:: 08/02/21 PCP / Referring Provider: Tyrone Bhakta Attending: Dr. 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 ? HPI: The patient is a 70 yo male with a PMH significant for CHF (Ischemic CM with EF 15%; PPM), atrial fibrillation, CAD (stent 12/2013), hemodynamically unstable wide-complex tachycardia 07/2020 with cardioversion in the ER, PAD (renal artery stent; aortobifemoral bypass 2000), HTN, COPD, pulmonary HTN, PBH, CKD (stage 4; baseline serum Cr ~2.35 mg/dL) and hyperlipemia. ? Former heavy smoker. Quit smoking 11/1999. ? Presented to the ED at [facility] on 04/20/2021 with complaints of increasing shortness of breath. Chest x-ray showed a possible right lower lobe infiltrate and a subsequent CT of the chest performed on 04/20/2021 revealed a 3.5 cm rounded mass in the medial aspect of the right middle lobe. No adenopathy was appreciated. ? He was managed for volume overload as well as acute kidney injury in setting of chronic kidney disease. ? Underwent CT-guided biopsy of the lung mass on 05/05/2021. ? Pathology: NSCLC, favor squamous cell carcinoma. ? Most recent echocardiogram 04/21/2021 revealed a severely dilated left ventricle with severe segmental systolic dysfunction. Estimated ejection fraction 15%. Left atrium was severely enlarged. Right atrium was mildly enlarged. Mild papillary muscle dysfunction mitral valve was observed. There was moderate 2+ eccentric mitral valve insufficiency. Mild tricuspid valve insufficiency. Moderate focal aortic valve calcification. Trivial pulmonic valve insufficiency. Trivial pericardial effusion. No evidence of tamponade by echocardiographic indications. Right ventricular systolic pressure was estimated to be 50 mmHg. Diastolic function was indeterminate. ICD or pacer leads were identified within the right atrium and right ventricle. ? Most recent PFTs 02/28/2021: INTERPRETATION: Forced expiration spirometry demonstrates the presence of a severe large airways obstructive ventilatory defect. There was a significant response to aerosolized bronchodilators. Spirograms are of fair quality but do not plateau indicating slow emptying of the lungs. Body plethysmography was performed and revealed a decreased TLC to 4.12 L, 71% of predicted, indicative of a mild restrictive ventilatory impairment. Diffusing capacity by single breath CO is reduced at 43% of predicted. When compared to previous pulmonary function studies from April 2016 there has been a 26% decrease in total lung capacity along with a 41% decrease in diffusing capacity. ? IMPRESSION: Partially reversible severe mixed ventilatory defect with symmetric reduction in diffusing capacity. ? Lives in ranch home. Ex- moved back in. She does all the housework and cooking. Was able to get up and down 2-3 steps. Walked form room to room. 3 lpm. ? Underwent EBUS with biopsies of 11 R lymph node x5 passes. Seen by radiation oncology after bronchoscopy and due to PFTs, concurrent chemotherapy and radiation was not recommended. Was considering chemotherapy sequentially with radiation. Presented to ED 07/23 with an increase in dyspnea as well as oxygen requirement. He underwent right-sided thoracentesis. Cytology was negative. Since then he has had a continued decline in performance status. He has not been able to maintain appointments at the office. I advised him to come to the emergency room on Wednesday when he canceled his office visit scheduled for that morning. Labs indicate moderate anemia. He also has hepatocellular injury. Creatinine appears to be at baseline. Still on 3 L/min. He currently has a flare of gout of the left knee. Denies pain otherwise.His appetite has been poor and he has not been eating much in the last 2 weeks. Occasional abdominal bloating. Very poor energy. His ex- endorses he has been sleeping up to 20 hours a day. Advanced Directives Power of Embedded Engineer: Yes Living Will: Yes [facility] Medical History (Updated 08/01/21 @ 17:28 by Trinh Kitchen) Acute kidney injury superimposed on chronic kidney disease Acute on chronic combined severe HF Acute on chronic respiratory failure with hypoxia and hypercapnia Acute systolic congestive heart failure Alcohol use Ambulates with cane Anasarca Anemia Atherosclerotic heart disease of [place] coronary artery without angina pectoris Atrial fibrillation Bilateral atelectasis BPH (benign prostatic hypertrophy) Cancer Cardiology follow-up encounter Chronic anticoagulation Chronic systolic (congestive) heart failure COPD (chronic obstructive pulmonary disease) Diverticulosis Former smoker Former smoker, stopped smoking in distant past High cholesterol History of atrial fibrillation History of CHF (congestive heart failure) History of echocardiogram History of edema History of left heart catheterization (LHC) (~08/09/20) History of renal disease History of stent insertion of renal artery History of stress test Hyperlipemia Hypertension Hypothyroidism Ischemic cardiomyopathy Left renal artery stenosis Leg cramps FDC (current) use of anticoagulants Myocardial infarct On home oxygen therapy Pacemaker Peripheral arterial occlusive disease Pleural effusion Pulmonary hypertension Respiratory failure with hypoxia and hypercapnia Shortness of breath on exertion Thyroid disease Urine retention Walker as ambulation aid Warfarin-induced coagulopathy Home Medications albuterol sulfate 1 - 2 puff INHALATION Q4H PRN PRN 12/01/17 [History Last Taken 08/01/21] aspirin 81 mg PO DAILY@0800 12/01/17 [History Last Taken 08/01/21] levothyroxine 112 mcg PO DAILY 12/01/17 [History Last Taken 08/01/21] tamsulosin 0.4 mg PO DAILY 12/01/17 [History Last Taken 08/01/21] ferrous sulfate 325 mg PO TIDCM #1 tab 12/04/17 [Rx Last Taken 08/01/21] calcitriol 0.25 mcg capsule 0.25 mcg PO MOWEFR cap 08/11/18 [History Last Taken 08/01/21] potassium chloride 10 mEq tablet,extended release(part/cryst) 10 meq PO DAILY tab 09/14/19 [History Last Taken 08/01/21] fenofibrate nanocrystallized 145 mg tablet 145 mg PO QHS #90 tab 10/11/19 [Rx Last Taken 07/31/21] rosuvastatin 40 mg tablet 40 mg PO QHS #90 tab 10/11/19 [Rx Last Taken 07/31/21] Handicap Placard #1 ea 08/29/20 [Rx Last Taken Unknown] isosorbide dinitrate 5 mg tablet 5 mg PO TID #270 tab 10/28/20 [Rx Last Taken 08/01/21] spironolactone 25 mg tablet 25 mg PO DAILY #90 tab 12/24/20 [Rx Last Taken 08/01/21] carvedilol 25 mg tablet 25 mg PO BID #180 tab 05/12/21 [Rx Last Taken 08/01/21] rivaroxaban 20 mg tablet 20 mg PO DAILY #30 tab 05/23/21 [Rx Last Taken 06/30/21] ezetimibe [Zetia] 10 mg PO QHS 07/03/21 [History Last Taken 07/31/21] tiotropium bromide [Spiriva Respimat] 2 inh INHALATION DAILY 07/03/21 [History Last Taken 08/01/21] budesonide-formoterol HFA 160 mcg-4.5 mcg/actuation aerosol inhaler 2 inh INHALATION BID #10.2 g 07/07/21 [Rx Last Taken 08/01/21] amiodarone 200 mg tablet 200 mg PO DAILY #90 tab 07/14/21 [Rx Last Taken 0 08/01/21] furosemide 80 mg tablet 80 mg PO BID tab 07/22/21 [History Last Taken 08/01/21] Allergy/AdvReac Type Severity Reaction Status Date / Time No Known Allergies Allergy Verified 08/01/21 11:54 Family History Father CAD (coronary artery disease) Mother CAD (coronary artery disease) Brother CAD (coronary artery disease) Hypertension Sister CAD (coronary artery disease) Hypertension Surgical History AICD (automatic cardioverter/defibrillator) present History of cardiac catheterization History of implantable cardioverter-defibrillator (ICD) placement History of stent insertion of renal artery (03/14/08) Status post aortobifemoral bypass surgery (04/25/01) Stented coronary artery Social History Smoking Status: Former smoker pack-years: 45 Tobacco: How many years used: 30 alcohol intake: never substance use type: does not use caffeine: Yes Type: coffee Physical Exam Const alert and oriented x3 Eyes no scleral icterus Neck no lymphadenopathy Resp Effort and Inspection: symmetric chest movement Cardio regular rate Cardio Narrative: A fib with paced rate. GI soft to palpation and non-tender GI Narrative: Distended Extremity General Extremity: edema Vital Signs Temperature 97.6 F L 08/02/21 11:02 Temperature Source Oral 08/02/21 11:02 Pulse Rate 75 08/02/21 11:43 Respiratory Rate 18 08/02/21 11:02 Respiratory Effort Non-Labored 08/02/21 07:43 Respiratory Depth Normal 08/02/21 07:43 Respiratory Pattern Normal 08/02/21 07:43 Blood Pressure 119/47 L 08/02/21 11:02 Blood Pressure Mean 71 08/02/21 11:02 Blood Pressure Source Monitor 08/02/21 11:02 Blood Pressure Position Sitting 08/02/21 11:02 Blood Pressure Location Right Forearm 08/02/21 11:02 Pulse Ox 98 08/02/21 11:02 Oxygen Delivery Method Nasal Cannula 08/02/21 11:02 Oxygen Flow Rate (L/min) 3 08/02/21 11:02 Laboratory Results - last 24 hr 08/02/21 06:00: Sodium 135 L, Potassium 5.3 H, Chloride 95 L, Carbon Dioxide 40.0 H, Anion Gap 0 L, BUN 84 H, Creatinine 2.37 H, Estim Creat Clear Calc 26.34, Est GFR (MDRD) Af Amer 35 L, Est GFR (MDRD) Non-Af 29 L, BUN/Creatinine Ratio 35.4 H, Glucose 102, Calcium 9.4 Diagnostic Data Chest X-Ray 08/01/21 12:35 IMPRESSION: Small right pleural effusion with underlying atelectasis. This is essentially unchanged. The left hemithorax is unremarkable. Electronically Signed: Tra Myrick MD at 12:48 EST , Service support ,
--- NOTE | 2021-08-02 14:38 | CM.ED ---
Addendum entered by Tomasa Sanders 08/02/21 17:14: TERRY spoke to Florence from [facility]. She inquired if patient would need cot to go home or could go in private vehicle. TERRY spoke to [facility] Charge who said that patient is assist x1 with walker. TERRY called patient's ex Jacey.She said that patient was unable to walk yesterday so it would be best for him to come to the house by squad at discharge from the ED. TERRY updated Florence that patient's ex reports that she feels patient needs squad for transport. Florence will call ex to see what DME's she needs for patient. TERRY received voice mail from [facility]. Florence said that ex Jacey reports that she doesn't have any DME needs for patient at discharge and he has home oxygen. Florence requested [facility] set up transport for 08/03/21 and contact them with time of transport and Florence will have the RN meet patient at the house. TERRY called [id number] and they will arrange transport for patient and call this mortgage underwriter back with time of transport. Tomasa GARCIA Original Note: TERRY Note Referral Source: CHAN CONTRERAS Referral Reason: Discharge planning TERRY met with patient to discuss discharge planning. He reports his first choice for SNF is [facility] and [facility]. TERRY received call from CHAN CONTRERAS. Patient has lung cancer and wants to go home with hospice. Patient is not IPU appropriate. TERRY faxed referral to [facility]. TERRY paged consulting sales manager RN for [facility]. Plan: Hospice Tomasa GARCIA
--- NOTE | 2021-08-02 14:41 | CASEMGMT ---
Per Dr. Pantoja, pt spoke with Dr. Vidal and would like to go home with hospice. Tomasa STEWART aware, voices understanding and states will fax clinicals. Order placed in chart and Dr. Pantoja notified production packager hospice nurse. Alana, charge, updated, voices understanding. Pt most likely to discharge home with hospice tomorrow. Rebeca GILES CM
[2021-08-02] MEDS: Rivaroxaban 20 MG Tablet PO (16:03)
--- NOTE | 2021-08-02 16:41 | CASEMGMT ---
This RN CM to room with LANDIN form, explanation done-pt voices understanding and signs LANDIN form at this time. Original to chart and copy to pt. Rebeca GILES CM
--- NOTE | 2021-08-02 18:44 | CM.ED ---
TERRY Note SW was updated by [facility] staff that patient will be picked up at 8:30am tomorrow. TERRY met with patient. Patient stated he is at peace with his impending . He said that he has made all the arrangements. Patient said that it will be hard for his daughter, who at age 50, still signs cards that say koki's little girl. Patient said that his granddaughter says that he is her bestest friend. SW advised that hospice can provide support to the whole family. Patient said that they used hospice with his mom and they were really supportive. Patient said that he was told by the MD he has 1 month to live. SW provided emotional support. TERRY called Florence at Hospice. She was advised that patient will [place] [facility] [place]. Hospice will meet patient at the home. TERRY updated [facility] Charge Alana that Hospice will meet patient at the home. TERRY called patient's ex , Jacey and updated her regarding patient's discharge time from [facility]. Jacey said that is fine. Plan: Home with Hospice. Tomasa GARCIA
--- NOTE | 2021-08-02 18:49 | PCA ---
Transportation set up with [facility] for 08/03 at 0830 for patient to return home with hospice.
[2021-08-02] MEDS: Atorvastatin Calcium 80 MG Tablet PO (22:25)
[2021-08-02] MEDS: Fenofibrate 145 MG Tablet PO (22:25)
[2021-08-02] MEDS: Ezetimibe 10 MG Tablet PO (22:25)
[2021-08-03] MEDS: Ondansetron 4 MG/2 ML Vial IV (00:09)
[2021-08-03 03:26] VITALS: BP 110/46; PULSE 77; RESP 16; TEMP 36.4; O2SAT 98
[2021-08-03] MEDS: Levothyroxine 112 MCG Tablet PO (06:31)
[2021-08-03 06:55] VITALS: PULSE 60; RESP 20; O2SAT 98
[2021-08-03] MEDS: Ipratropium/Albuterol Sulfate 3 ML AMPUL.NEB INHALATION (06:55)
[2021-08-03] MEDS: Budesonide Respules 0.5 MG/2 ML AMPUL.NEB. INHALATION (06:55)
--- NOTE | 2021-08-03 07:29 | PCM.DC ---
Discharge Instructions Diet Discharge Diet: No restrictions Activity Discharge Activity: Return to Normal Activity Weight Bearing Status: Full weight bearing Follow Up Care Test Results: Test results from this visit will be discussed in further detail at your follow-up appointment, if applicable. Discharge Plan Admission Admit Date/Time: 08/01/21 16:40 Primary Reason for Your Visit: Debility, non-small cell lung cancer Attending Provider: Des Mota Primary Care Provider: Tyrone Bhakta Consulting Providers: Lonny Jade ; Debi Raya ; Kassidy Gale ; Luis M Garcia ; Eros Vidal ; Mayra Neville ; Radu Lewis ; Brina Mahmood ; Nemo Otto ; Beata Montoya ; Gloria Rodríguez ORACLE TECHNICAL ARCHITECT Instructions Additional Instructions / Restrictions: Continue oxygen at home as before Discharge Orders/Prescriptions Prescriptions: New prednisone 20 mg tablet 40 mg PO DAILY Qty: 14 RF: 0 Continued (DME) Handicap Placard See Rx Instructions .Route .MEDSUPPLY Qty: 1 RF: 0 aspirin 81 MG tablet 81 mg PO DAILY@0800 RF: 0 tamsulosin 0.4 MG capsule 0.4 mg PO DAILY RF: 0 albuterol sulfate 1 PUFF inhaler 1 - 2 puff INHALATION Q4H PRN PRN (Reason: Bronchodialation) RF: 0 levothyroxine 112 MCG tablet 112 mcg PO DAILY RF: 0 potassium chloride 10 mEq tablet,ER particles/crystals 10 meq PO DAILY RF: 0 Spiriva Respimat 2.5 mcg/actuation mist 2 inh INHALATION DAILY RF: 0 fenofibrate nanocrystallized 145 mg tablet 145 mg PO QHS Qty: 90 RF: 3 spironolactone 25 mg tablet 25 mg PO DAILY Qty: 90 RF: 3 carvedilol 25 mg tablet 25 mg PO BID Qty: 180 RF: 4 Xarelto 20 mg tablet 20 mg PO DAILY Qty: 30 RF: 11 budesonide-formoterol [Symbicort] 160-4.5 mcg/actuation HFA aerosol inhaler 2 inh INHALATION BID Qty: 10.2 RF: 6 amiodarone 200 mg tablet 200 mg PO DAILY Qty: 90 RF: 3 furosemide 80 mg tablet 80 mg PO BID RF: 0 Discontinued calcitriol 0.25 mcg capsule 0.25 mcg PO MOWEFR RF: 0 ferrous sulfate 325 MG tablet 325 mg PO TIDCM Qty: 1 RF: 0 ezetimibe [Zetia] 10 mg tablet 10 mg PO QHS RF: 0 rosuvastatin 40 mg tablet 40 mg PO QHS Qty: 90 RF: 3 isosorbide dinitrate 5 mg tablet 5 mg PO TID Qty: 270 RF: 3 Referrals / Follow Up: Brina Mahmood MD [STAFF PHYSICIAN] - See Referral Note (As directed) Tyrone Bhakta [Primary Care Provider] - Disposition Disposition (needs filled in before D/C Order can be placed): Hospice in Home
[2021-08-03] MEDS: Ferrous Sulfate 325 MG Tablet PO (08:04)
[2021-08-03] MEDS: Tamsulosin HCl 0.4 MG Capsule PO (08:04)
[2021-08-03] MEDS: Furosemide 80 MG Tablet PO (08:04)
[2021-08-03] MEDS: Carvedilol 25 MG Tablet PO (08:04)
[2021-08-03 08:05] VITALS: BP 115/51; PULSE 71; RESP 18; TEMP 36.3; O2SAT 98
[2021-08-03] MEDS: predniSONE 10 MG Tablet 50 MG PO (08:05)
[2021-08-03] MEDS: Aspirin E.C. 81 MG Tablet PO (08:05)
[2021-08-03] MEDS: Amiodarone 200 MG Tablet PO (08:06)
[2021-08-03] MEDS: Spironolactone 25 MG Tablet PO (08:06)
--- NOTE | 2021-08-03 08:24 | NURSING ---
report called to CHAN Henriquez for discharge home to hospice.
[2021-08-03 08:47] LABS: Absolute Lymphocyte Count 0.31 X10^3/uL (0.83-4.51); Absolute Neutrophil Count 8.7 X10^3/uL (2.0-7.7); Hematocrit 34.4 % (40-54); Lymphocyte # 0.31 X10^3/ul (0.83-4.51); Lymphocyte % 3.3 % (19-41); Mean Corp Hgb Conc 29.1 g/dL (32-36); Mean Corpuscular Hgb 28.2 pg (27.0-32.0); Mean Corpuscular Volume 97.2 fL (80-94); Mean Platelet Vol. 10.6 fl (6.2-12.0); Monocyte# 0.43 X10^3/uL; Monocyte% 4.5 % (0-10); NRBC Flagged by Analyzer 0 % (0-5); Neutrophil # 8.69 X10^3/uL (2.7-7.7); Neutrophil % 91.3 % (47-70); POSITIVE DIFFERENTIAL YES; Platelet Count 251 K/mm3 (150-450); RBC Distribution Width CV 15.1 % (11.6-14.6); RBC Distribution Width SD 54.6 fl (35.1-43.9); Red Blood Count 3.54 M/mm3 (4.6-6.2); White Blood Count 9.5 K/mm3 (4.4-11.0)
[2021-08-03 09:02] LABS: Differential Indicated SCAN CRITERIA MET
[2021-08-03 09:11] LABS: Anion Gap 3 (5-15); BUN 93 mg/dL (7-18); BUN/Creat Ratio 33.2 RATIO (10-20); Calcium,Total 9.3 mg/dL (8.5-10.1); Chloride 89 mmol/L (98-107); EST Glomerular Filtration Rate 24 mL/min (>60); Est Glom Filt Rate - Afr Amer 29 mL/min (>60); Glucose 105 mg/dL (74-106); Potassium 5.4 mmol/L (3.5-5.1); Sodium Level 130 mmol/L (136-145)
[2021-08-03 09:49] LABS: Differential Comment SCANNED
--- NOTE | 2021-08-03 10:27 | PCM.DC.SUM ---
Documented by User: OSMANY Leslie 08/03/21 10:34 Providers Date of Admission: 08/01/21 Primary Care Physician: Tyrone Bhakta Consultations 08/02/21 11:40 Consult: Oncology/Hematology Routine Consulting Provider: [facility]On[facility] Dimitris Reason for Consult: lung cancer EMERGENT Consult: No MD Notified: Yes Date Notified: 08/02/21 Time Notified: 11:40 Method of Notification: Verbal 08/02/21 14:27 Consult: Hospice / Palliative Care Routine Consulting Provider: [facility] Reason for Consult: stage 4 lung cancer, debility EMERGENT Consult: Yes MD Notified: Yes Date Notified: 08/02/21 Time Notified: 14:27 Method of Notification: Verbal Reason For Visit: GENALIZED DEBILITY Diagnosis Discharge Diagnosis (1) Adult failure to thrive: Status: Acute Code(s): R62.7 - Adult failure to thrive Medications at Discharge Home Medications albuterol sulfate 1 - 2 puff INHALATION Q4H PRN PRN 12/01/17 aspirin 81 mg PO DAILY@0800 12/01/17 levothyroxine 112 mcg PO DAILY 12/01/17 tamsulosin 0.4 mg PO DAILY 12/01/17 potassium chloride 10 mEq tablet,extended release(part/cryst) 10 meq PO DAILY tab 09/14/19 fenofibrate nanocrystallized 145 mg tablet 145 mg PO QHS #90 tab 10/11/19 Handicap Placard #1 ea 08/29/20 spironolactone 25 mg tablet 25 mg PO DAILY #90 tab 12/24/20 carvedilol 25 mg tablet 25 mg PO BID #180 tab 05/12/21 rivaroxaban 20 mg tablet 20 mg PO DAILY #30 tab 05/23/21 Spiriva Respimat 2 inh INHALATION DAILY 07/03/21 budesonide-formoterol HFA 160 mcg-4.5 mcg/actuation aerosol inhaler 2 inh INHALATION BID #10.2 g 07/07/21 amiodarone 200 mg tablet 200 mg PO DAILY #90 tab 07/14/21 furosemide 80 mg tablet 80 mg PO BID tab 07/22/21 prednisone 40 mg PO DAILY #14 tab 08/03/21 Hospital Course Operations None Procedures None Summary of Care Provided Hospital Course: Patient is a 70-year-old male who originally came in for and failure to thrive. Patient has recently been diagnosed with debility but has been unable to follow-up with lung cancer oncology due to his severe weakness and fatigue. also has chronic Patient hypoxic respiratory failure secondary to his lung cancer as well as CAD, CKD, PAD, COPD, BPH, hypothyroidism. and prognosis of patient's Patient was seen by Dr. Vidal with whom he follows outpatient After discussion with decided that he would Dr. Vidal patient illness was discussed. prefer to go home with hospice versus aggressive treatment of his lung cancer. with oxygen Patient will be discharged home with hospice to follow-up. This patient was seen by Cecilia Uriostegui NP-Iman under the supervision of Dr. Mota. 11 minutes spent in clinical coordination of patient's plan of care. Physical Exam Const alert, oriented x3 and no apparent distress General Appearance: cooperative HEENT normocephalic and head/scalp atraumatic Eyes conjunctivae normal and no scleral icterus Neck supple General: trachea midline Resp normal respiratory effort Effort and Inspection: able to speak in complete sentences and symmetric chest movement Auscultation: rales bilateral base Cardio regular rate, regular rhythm, S1 normal heart sound, S2 normal heart sound and peripheral pulses 2+ throughout GI normal to inspection, nondistended, normoactive bowel sounds, soft to palpation and non-tender Extremity normal capillary refill and no clubbing, cyanosis or edema General Extremity: no tenderness to palpation of joints or extremities Left Lower Extremity: foot and digits Positive for inspection (Left great toe red), palpation (Tender) and neurovascular exam (Intact) Skin General Skin Exam: no breakdown and turgor normal Lesions: no lesions Rashes: no rashes Neuro no focal motor deficits and no sensory deficits noted Speech: speech normal Motor Exam: general weakness Psych thought process normal, cooperative and affect normal Appearance: appropriate Weight / BMI Weight Weight: 201 lb 15.095 oz Body Mass Index (BMI) 31.6 ABG / Lab / Microbiology Data Result Diagrams: 08/03/21 07:55 08/03/21 07:55 Laboratory: Laboratory Results - last 24 hr 08/03/21 07:55: WBC 9.5, RBC 3.54 L, Hgb 10.0 L, Hct 34.4 L, MCV 97.2 H, MCH 28.2, MCHC 29.1 L, RDW Std Deviation 54.6 H, RDW Coeff of Bhavna 15.1 H, Plt Count 251, MPV 10.6, Immature Gran % (Auto) 0.900, Neut % (Auto) 91.3 H, Lymph % (Auto) 3.3 L, Gulf % (Auto) 4.5, Eos % (Auto) 0.0, Baso % (Auto) 0.0, Absolute Neuts (auto) 8.7 H, Absolute Lymphs (auto) 0.31 L, Nucleated RBC % 0, Differential Comment SCANNED 08/03/21 07:55: Sodium 130 L, Potassium 5.4 H, Chloride 89 L, Carbon Dioxide 38.0 H, Anion Gap 3 L, BUN 93 H, Creatinine 2.80 H, Estim Creat Clear Calc 22.30, Est GFR (MDRD) Af Amer 29 L, Est GFR (MDRD) Non-Af 24 L, BUN/Creatinine Ratio 33.2 H, Glucose 105, Calcium 9.3 D/C Instructions Discharge Diet: No restrictions Weight Bearing Status: Full weight bearing Meaningful Use Info Meaningful Use Diagnoses (Choose all that apply): None applicable Discharge Plan Admission Admit Date/Time: 08/01/21 16:40 Primary Reason for Your Visit: Debility, non-small cell lung cancer Attending Provider: Des Mota Primary Care Provider: Tyrone Bhakta Consulting Providers: Lonny Jade ; Debi Raya ; Kassidy Gale ; Luis M Garcia ; Eros Vidal ; Mayra Neville ; Radu Lewis ; Brina Mahmood ; Nemo Otto ; Beata Montoya ; Gloria Rodríguez HEAD TURNING MACHINE OPERATOR Instructions Additional Instructions / Restrictions: Continue oxygen at home as before Discharge Orders/Prescriptions Prescriptions: New prednisone 20 mg tablet 40 mg PO DAILY Qty: 14 RF: 0 Continued (DME) Handicap Placard See Rx Instructions .Route .MEDSUPPLY Qty: 1 RF: 0 aspirin 81 MG tablet 81 mg PO DAILY@0800 RF: 0 tamsulosin 0.4 MG capsule 0.4 mg PO DAILY RF: 0 albuterol sulfate 1 PUFF inhaler 1 - 2 puff INHALATION Q4H PRN PRN (Reason: Bronchodialation) RF: 0 levothyroxine 112 MCG tablet 112 mcg PO DAILY RF: 0 potassium chloride 10 mEq tablet,ER particles/crystals 10 meq PO DAILY RF: 0 Spiriva Respimat 2.5 mcg/actuation mist 2 inh INHALATION DAILY RF: 0 fenofibrate nanocrystallized 145 mg tablet 145 mg PO QHS Qty: 90 RF: 3 spironolactone 25 mg tablet 25 mg PO DAILY Qty: 90 RF: 3 carvedilol 25 mg tablet 25 mg PO BID Qty: 180 RF: 4 Xarelto 20 mg tablet 20 mg PO DAILY Qty: 30 RF: 11 budesonide-formoterol [Symbicort] 160-4.5 mcg/actuation HFA aerosol inhaler 2 inh INHALATION BID Qty: 10.2 RF: 6 amiodarone 200 mg tablet 200 mg PO DAILY Qty: 90 RF: 3 furosemide 80 mg tablet 80 mg PO BID RF: 0 Discontinued calcitriol 0.25 mcg capsule 0.25 mcg PO MOWEFR RF: 0 ferrous sulfate 325 MG tablet 325 mg PO TIDCM Qty: 1 RF: 0 ezetimibe [Zetia] 10 mg tablet 10 mg PO QHS RF: 0 rosuvastatin 40 mg tablet 40 mg PO QHS Qty: 90 RF: 3 isosorbide dinitrate 5 mg tablet 5 mg PO TID Qty: 270 RF: 3 Referrals / Follow Up: Brina Mahmood MD [STAFF PHYSICIAN] - See Referral Note (As directed) Tyrone Bhakta [Primary Care Provider] - Disposition Disposition (needs filled in before D/C Order can be placed): Hospice in Home Documented by User: Dr. Des Mota DO 08/03/21 13:20 Providers Date of Admission: 08/01/21 Reason For Visit: GENALIZED DEBILITY Medications at Discharge Home Medications albuterol sulfate 1 - 2 puff INHALATION Q4H PRN PRN 12/01/17 aspirin 81 mg PO DAILY@0800 12/01/17 levothyroxine 112 mcg PO DAILY 12/01/17 tamsulosin 0.4 mg PO DAILY 12/01/17 potassium chloride 10 mEq tablet,extended release(part/cryst) 10 meq PO DAILY tab 09/14/19 fenofibrate nanocrystallized 145 mg tablet 145 mg PO QHS #90 tab 10/11/19 Handicap Placard #1 ea 08/29/20 spironolactone 25 mg tablet 25 mg PO DAILY #90 tab 12/24/20 carvedilol 25 mg tablet 25 mg PO BID #180 tab 05/12/21 rivaroxaban 20 mg tablet 20 mg PO DAILY #30 tab 05/23/21 Spiriva Respimat 2 inh INHALATION DAILY 07/03/21 budesonide-formoterol HFA 160 mcg-4.5 mcg/actuation aerosol inhaler 2 inh INHALATION BID #10.2 g 07/07/21 amiodarone 200 mg tablet 200 mg PO DAILY #90 tab 07/14/21 furosemide 80 mg tablet 80 mg PO BID tab 07/22/21 prednisone 40 mg PO DAILY #14 tab 08/03/21 ABG / Lab / Microbiology Data Result Diagrams: 08/03/21 07:55 08/03/21 07:55 Discharge Plan Admission Admit Date/Time: 08/01/21 16:40 Primary Reason for Your Visit: Debility, non-small cell lung cancer Attending Provider: Des Mota Primary Care Provider: Tyrone Bhakta Consulting Providers: Lonny Jade ; Debi Raya ; Kassidy Gale ; Luis M Garcia ; Eros Vidal ; Mayra Neville ; Radu Lewis ; Brina Mahmood ; Nemo Otto ; Beata Montoya ; Gloria Rodríguez HEAD TURNING MACHINE OPERATOR Instructions Additional Instructions / Restrictions: Continue oxygen at home as before Discharge Orders/Prescriptions Prescriptions: New prednisone 20 mg tablet 40 mg PO DAILY Qty: 14 RF: 0 Continued (DME) Handicap Placard See Rx Instructions .Route .MEDSUPPLY Qty: 1 RF: 0 aspirin 81 MG tablet 81 mg PO DAILY@0800 RF: 0 tamsulosin 0.4 MG capsule 0.4 mg PO DAILY RF: 0 albuterol sulfate 1 PUFF inhaler 1 - 2 puff INHALATION Q4H PRN PRN (Reason: Bronchodialation) RF: 0 levothyroxine 112 MCG tablet 112 mcg PO DAILY RF: 0 potassium chloride 10 mEq tablet,ER particles/crystals 10 meq PO DAILY RF: 0 Spiriva Respimat 2.5 mcg/actuation mist 2 inh INHALATION DAILY RF: 0 fenofibrate nanocrystallized 145 mg tablet 145 mg PO QHS Qty: 90 RF: 3 spironolactone 25 mg tablet 25 mg PO DAILY Qty: 90 RF: 3 carvedilol 25 mg tablet 25 mg PO BID Qty: 180 RF: 4 Xarelto 20 mg tablet 20 mg PO DAILY Qty: 30 RF: 11 budesonide-formoterol [Symbicort] 160-4.5 mcg/actuation HFA aerosol inhaler 2 inh INHALATION BID Qty: 10.2 RF: 6 amiodarone 200 mg tablet 200 mg PO DAILY Qty: 90 RF: 3 furosemide 80 mg tablet 80 mg PO BID RF: 0 Discontinued calcitriol 0.25 mcg capsule 0.25 mcg PO MOWEFR RF: 0 ferrous sulfate 325 MG tablet 325 mg PO TIDCM Qty: 1 RF: 0 ezetimibe [Zetia] 10 mg tablet 10 mg PO QHS RF: 0 rosuvastatin 40 mg tablet 40 mg PO QHS Qty: 90 RF: 3 isosorbide dinitrate 5 mg tablet 5 mg PO TID Qty: 270 RF: 3 Referrals / Follow Up: Brina Mahmood MD [STAFF PHYSICIAN] - See Referral Note (As directed) Tyrone Bhakta [Primary Care Provider] - Disposition Disposition (needs filled in before D/C Order can be placed): Hospice in Home Charges/Coding Addendum Addendum: Patient was seen and examined today independently of Felisha Uriostegui, he is going to be going home today with hospice at his home. Patient has no questions to this examiner. I have elected to take the patient off of his medications for hyperlipidemia-I do not think he really needs these any longer. I talked to oncology yesterday and they stated his lifespan was probably only a few weeks, patient talked at length yesterday with oncology. Arrangements were set up for the patient to see hospice today at his home. Patient appears comfortable at this time on nasal cannula oxygen. On examination he appeared older than his stated age. Vital signs as documented. Skin warm and dry and without overt rashes. Neck without JVD, neck was supple, trachea midline, thyroid was normal. Lungs decreased breath sounds were noted on the right, normal air movement was noted on the left. Heart exam notable for regular rhythm, normal sounds and absence of murmurs, rubs or gallops. Abdomen unremarkable and without evidence of organomegaly, masses, or abdominal aortic enlargement. Bowel sounds are present, abdomen is not distended. Extremities nonedematous, no cyanosis was noted, no clubbing was noted. Neuro: Cranial nerves II through XII are grossly intact, no focal motor deficits were noted, sensation to light touch and pinprick intact, motor exam 5/5 throughout. Psych: Patient is alert and oriented x3, he does not appear anxious or depressed, he does not appear agitated. #1 generalized debility secondary to chronic respiratory failure and right non small cell lung cancer -patient will be discharged home with home hospice today #2 chronic kidney disease stage IIIb- no specific treatment at this time since patient is going to be following up with hospice #3 non-small cell lung cancer-right lung-patient will see hospice #4 coronary artery disease #5 ventricular tachycardia by history #6 pulmonary hypertension #7 ischemic cardiomyopathy #8 chronic systolic congestive heart failure #9 paroxysmal atrial fibrillation #10 hyperlipidemia #11 hypothyroidism-patient is on levothyroxine I have decided to take the patient off his medication for hyperlipidemia due to the fact he is hospice. I have reviewed Felisha Uriostegui's discharge summary including her medical assessment and plan of care and endorse it with the above additions. Total clinical time spent by myself on this patient: 20 minutes Visit Charges OBSV E&M: [id number] Observation care discharge
== END 2021-08-03 09:40 | disposition hospice, home (50) ==
LOC: ED 16:42 → MS3 16:54
PROVIDERS: Nurse Practitioner Family; Admitting Provider Internal Medicine; Emergency Provider Emergency Medicine; Visit Provider Internal Medicine
DX: R62.7 Adult failure to thrive (principal); C34.91 Malignant neoplasm of unspecified part of right bronchus or lung; J44.9 Chronic obstructive pulmonary disease, unspecified; I13.0 Hypertensive heart and chronic kidney disease with heart failure and stage 1 through stage 4 chronic kidney disease, or unspecified chronic kidney disease; I50.22 Chronic systolic (congestive) heart failure; I27.20 Pulmonary hypertension, unspecified; I73.9 Peripheral vascular disease, unspecified; J96.11 Chronic respiratory failure with hypoxia; I48.0 Paroxysmal atrial fibrillation; N18.32 Chronic kidney disease, stage 3b; E03.9 Hypothyroidism, unspecified; M10.062 Idiopathic gout, left knee; I25.10 Atherosclerotic heart disease of native coronary artery without angina pectoris; I25.5 Ischemic cardiomyopathy; E78.5 Hyperlipidemia, unspecified; N40.0 Benign prostatic hyperplasia without lower urinary tract symptoms; Z87.891 Personal history of nicotine dependence; Z79.899 Other long term (current) drug therapy; Z79.01 Long term (current) use of anticoagulants; Z79.82 Long term (current) use of aspirin; Z79.890 Hormone replacement therapy; Z68.31 Body mass index [BMI] 31.0-31.9, adult; Z99.81 Dependence on supplemental oxygen; Z95.810 Presence of automatic (implantable) cardiac defibrillator
CPT/HCPCS: 36415; 71045; 80048; 80053; 83605; 85025; 85610; 93005; 94640; 96374; 96375; 96376; 97802; 99218; 99251; 99285; J7050; A4216; G0378; G0463; J0610; J2405